=== PATIENT | male | born 1965 | race American Indian/Alaskan Native ===

== ENCOUNTER 2016-05-17 17:34 | Inpatient (IN) | payer MEDICARE, OTHER ==
[2016-05-17 17:34] VITALS: BMI 46.0
[2016-05-17] MEDS ORDERED: Aspirin 325 mg EC Tablets PO STA (18:03)
[2016-05-17 18:43] LABS: BASO # 0.1 K/uL (0.0-0.2); BASO % 0.8 % (0.0-2.0); EOS # 0.2 K/uL (0.0-0.7); EOS % 2.6 % (0.0-4.0); HEMATOCRIT 32.8 % (35.0-51.0); LYMPH # 1.4 K/uL (1.0-4.3); LYMPH % 16.8 % (20.0-40.0); MEAN CORPUSCULAR HEMOGLOBIN 24.2 pg (27.0-31.0); MEAN CORPUSCULAR HGB CONC 31.4 g/dL (33.0-37.0); MEAN PLATELET VOLUME 8.7 fL (7.2-11.7); MONO # 0.5 K/uL (0.0-0.8); MONO % 6.3 % (0.0-10.0); RED CELL DISTRIBUTION WIDTH 17.2 % (11.5-14.5); WHITE BLOOD COUNT 8.4 K/uL (4.8-10.8)
[2016-05-17 18:50] LABS: CHLORIDE 99 mmol/L (98-107)
[2016-05-17 18:51] LABS: SODIUM 135 mmol/L (132-148)
[2016-05-17 18:53] LABS: ALB/GLOB RATIO 0.9 (1.0-2.1); ALKALINE PHOSPHATASE 118 U/L (38-126); AST/SGOT 14 U/L (17-59); BILIRUBIN,TOTAL 0.5 mg/dL (0.2-1.3); BLOOD UREA NITROGEN 43 mg/dL (9-20); CARBON DIOXIDE 23 mmol/L (22-30); GFR AFRICAN-AMERICAN 39; TOTAL PROTEIN 7.4 g/dL (6.3-8.3)
[2016-05-17 18:54] LABS: ALT/SGPT 23 U/L (21-72); CALCIUM 8.5 mg/dl (8.6-10.4); GLUCOSE,RANDOM 175 mg/dL (75-110)
--- NOTE | 2016-05-17 19:20 | C.PDOC ---
History Of Present Illness Patient presents to the ED with vague chest pains prior to arrival. Patient has many prior evaluations for same complaint and is well known to doctor. Patient takes oxycodone for chronic lower back pain. Patient denies nausea, vomiting, and diarrhea. Time Seen by Provider: 05/17/16 18:02 Chief Complaint (Nursing): Chest Pain History Per: Patient History/Exam Limitations: no limitations Onset/Duration Of Symptoms: Hrs Current Symptoms Are (Timing): Still Present Quality: "Pain" Associated Symptoms: denies: Nausea Past Medical History Reviewed: Historical Data, Nursing Documentation, Vital Signs Vital Signs: Last Vital Signs Temp Pulse 88 05/17/16 19:36 Resp 18 05/17/16 19:36 BP 113/59 L 05/17/16 17:53 Pulse Ox 98 05/17/16 20:23 - Medical History PMH: Back Problems, CAD, CHF, COPD, Diabetes, Deep Vein Thrombosis, Emphysema, Graves' Disease, HTN, Hypothyroidism, Peripheral Edema, Pneumonia, Sleep Apnea, TIA (Hx of Strokes-2008) Denies: Chronic Kidney Disease Surgical History: CABG (2008), Coronary Stent (3 Stents Prior to Quadruple Bypass), Pacemaker (left upper chest) - [employer] Procedures ASSISTANCE WITH RESPIRATORY VENTILATION, 24-96 HRS, CPAP (10/15/15) INJECT/INFUSE NEC (10/09/12) Family History: States: Unknown Family Hx - Social History Hx Tobacco Use: Yes Hx Alcohol Use: No Hx Substance Use: No - Immunization History Hx Tetanus Toxoid Vaccination: Yes Hx Influenza Vaccination: Yes Hx Pneumococcal Vaccination: Yes Review Of Systems Constitutional: Positive for: Sweats, Other. Negative for: Fever, Chills Cardiovascular: Positive for: Chest Pain Gastrointestinal: Negative for: Nausea, Vomiting Physical Exam - Physical Exam Appears: Other (Morbidly obese ) Skin: Warm, Dry, Other (with lichenification) Respiratory: No Rales, No Rhonchi, No Wheezing Gastrointestinal/Abdominal: Other (abdominal globus) Extremity: Other (lower extremity 4/4 pitting edema) Neurological/Psych: Oriented x3 ED Course And Treatment - Laboratory Results Result Diagrams: 05/17/16 18:37 05/17/16 18:37 Lab Interpretation: Abnormal (creat 2.2 increased from 1.0 from 05/05/16) ECG: Interpreted By Me ECG Rhythm: Sinus Rhythm, AV Paced ECG Interpretation: Normal Rate From EC O2 Sat by Pulse Oximetry: 98 Pulse Ox Interpretation: Normal - Radiology CXR: Interpreted by Me CXR Interpretation: Yes: No Acute Disease, Other (+ mild venous congestion) Reevaluation Time: 19:20 Reassessment Condition: Improved - Physician Consult Information Outcome Of Conversation: d/w Dr. Amor @ 1800 and 1900, ok to Tele obs Medical Decision Making Medical Decision Making: typical CP syndrome + cardiac stress test from [facility] (seen for CP) 04/17- left AMA. Disposition Doctor Will See Patient In The: Hospital Counseled Patient/Family Regarding: Studies Performed, Diagnosis - Disposition Disposition: HOSPITALIZED Disposition Time: 19:21 Condition: GOOD - Clinical Impression Clinical Impression: Chronic pain syndrome, Acute renal insufficiency, Chest discomfort - Scribe Statement The provider has reviewed the documentation as recorded by the Scribe Livier Gonzalez All medical record entries made by the Scribe were at my direction and personally dictated by me. I have reviewed the chart and agree that the record accurately reflects my personal performance of the history, physical exam, medical decision making, and the department course for this patient. I have also personally directed, reviewed, and agree with the discharge instructions and disposition.
[2016-05-17] MEDS ORDERED: oxyCODONE 30 mg Immediate Release Tab ONE (20:17)
[2016-05-17] MEDS: oxyCODONE 30 mg Immediate Release Tab PO PRN (20:19)
[2016-05-18] MEDS: (Novolog) Insulin Aspart, Recombinant 100 u/ml 10 ml vial SC SCH ×5 (00:20→21:52)
[2016-05-18 04:33] VITALS: RESP 20
[2016-05-18] MEDS: oxyCODONE 30 mg Immediate Release Tab PO PRN ×4 (04:56→23:59)
[2016-05-18] MEDS ORDERED: Levothyroxine 100 MCG TAB PO SCH (10:00)
--- NOTE | 2016-05-18 10:39 | RAD ---
PROCEDURE: CHEST RADIOGRAPH, 1 VIEW HISTORY: SOB COMPARISON: Comparison chest dated 05/03/2016 FINDINGS: LUNGS: In situ right IJ MediPort unchanged. Central pulmonary vasculature is slightly congested in appearance. Poor inspiration with low lung volumes, crowded bronchovascular markings and mild bibasilar atelectasis. PLEURA: No pneumothorax or pleural fluid seen. CARDIOVASCULAR: Multi lead pacemaker/ defibrillator unchanged. Sternotomy wires again noted. Heart appears borderline/mildly enlarged. OSSEOUS STRUCTURES: No significant abnormalities. VISUALIZED UPPER ABDOMEN: Normal. OTHER FINDINGS: None. IMPRESSION: Central pulmonary vasculature is slightly congested in appearance. Poor inspiration with low lung volumes, crowded bronchovascular markings and mild bibasilar atelectasis.
[2016-05-18] MEDS: Digoxin 125 mcg (0.125 mg) Tab PO SCH (17:55)
[2016-05-18] MEDS: Levothyroxine 100 MCG TAB PO SCH (21:53)
--- NOTE | 2016-05-18 22:16 | CARD ---
APPROVED REPORT EKG Measurement Heart [id number] <Conclusion> Dual chamber pacemaker rhythm Atrial-sensed ventricular-paced rhythm with fusion complexes Abnormal ECG
--- NOTE | 2016-05-18 22:34 | CP.PCM.HP ---
History of Present Illness - History of Present Illness History of Present Illness: Chief Complaint: Chest Pain HPI: He is Middle age, male with a history of diabetes, hyper tension, hyperlipedemia, DVT, coronary artery disease s/p CABG, multiple angioplasties, who is complaint with high medications, he has multiple recurrent hospitalizations for chest ho. 2 days ago he has stress test done and was advised cardiac cath, he left without it against med advice, he is ambulatory, an independent on activities of daily living , pt developed chest pain , he feels generalize weakness , drowsiness at times and running nose . He denies any nausea, vomiting, diarrhea, polyurea, arthopenia , abdominal pain , rectal pain, rectal bleed , but he gets dysnia on exertion and low back pain, theres occasionally knee pain, theres tingling numbness in the feet . patient denies loss of consciousness, no seizure like activity, no involuntary movement . Review of Systems - Review of Systems Systems not reviewed;Unavailable: Acuity of Condition - Constitutional Constitutional: Fatigue, Lethargy, Malaise, Weakness - EENT Eyes: absent: As Per HPI, Blind Spots, Blurred Vision, Change in Vision, Decreased Night Vision, Diplopia, Discharge, Dry Eye, Exophthalmos, Floaters, Irritation, Itchy Eyes, Loss of Peripheral Vision, Pain, Photophobia, Requires Corrective Lenses, Sees Flashes, Spots in Vision, Tunnel Vision, Other Visual Disturbances, Loss of Vision, Other Nose/Mouth/Throat: absent: As Per HPI, Epistaxis, Nasal Congestion, Nasal Discharge, Nasal Obstruction, Nasal Trauma, Nose Pain, Post Nasal Drip, Sinus Pain, Sinus Pressure, Bleeding Gums, Change in Voice, Dental Pain, Dry Mouth, Dysphagia, Halitosis, Hoarsness, Lip Swelling, Mouth Lesions, Mouth Pain, Odynophagia, Sore Throat, Throat Swelling, Tongue Swelling, Facial Pain, Neck Pain, Neck Mass, Other - Cardiovascular Cardiovascular: Chest Pain, Chest Pain at Rest, Leg Edema, Palpitations - Respiratory Respiratory: Cough, Dyspnea - Gastrointestinal Gastrointestinal: absent: As Per HPI, Abdominal Pain, Belching, Bloating, Change in Bowel Habits, Change in Stool Character, Coffee Ground Emesis, Constipation, Cramping, Diarrhea, Dyspepsia, Dysphagia, Early Satiety, Excessive Flatus, Fecal Incontinence, Heartburn, Hematemesis, Hematochezia, Loose Stools, Melena, Nausea, Odynophagia, Temesmus, Vomiting, Other - Genitourinary Genitourinary: absent: As Per HPI, Change in Urinary Stream, Difficulty Urinating, Dysuria, Flank Pain, Hematuria, Pyuria, Nocturia, Urinary Incontinence, Urinary Frequency, Urinary Hesitance, Urinary Urgency, Voiding Freq/Small Amts, Freq UTI, Hx Renal/Bladder Calculi, Hx /Renal Surgery, Bladder Distension, Other - Musculoskeletal Musculoskeletal: Back Pain, Muscle Weakness - Integumentary Integumentary: Dry Skin, Erythema - Neurological Neurological: absent: As Per HPI, Abnormal Gait, Abnormal Hearing, Abnormal Movements, Abnormal Speech, Behavioral Changes, Burning Sensations, Confusion, Convulsions, Disequilibrium, Dizziness, Numbness, Focal Weakness, Frequent Falls , Headaches, Lack of Coordination, Loss of Vision, Memory Loss, Paresthesias, Radicular Pain, Restless Legs, Sensory Deficit, Syncope, Tingling, Tremor, Vertigo, Weakness, Other Visual Disturbances, Other Past Patient History - Infectious Disease Hx of Infectious Diseases: None - Past Medical History & Family History Past Medical History?: Yes - Past Social History Smoking Status: Current Some Days Smoker - CARDIAC Hx Congestive Heart Failure: Yes Hx Hypertension: Yes Hx Pacemaker: Yes (left upper chest) Hx Peripheral Edema: Yes - PULMONARY Hx Chronic Obstructive Pulmonary Disease (COPD): Yes Hx Emphysema: Yes Hx Pneumonia: Yes Hx Sleep Apnea: Yes - NEUROLOGICAL Hx Transient Ischemic Attacks (TIA): Yes (Hx of Strokes-2008) - HEENT Hx HEENT Problems: No - RENAL Hx Chronic Kidney Disease: No - ENDOCRINE/METABOLIC Hx Hypothyroidism: Yes - HEMATOLOGICAL/ONCOLOGICAL Hx Blood Disorders: No Hx Blood Transfusions: No - INTEGUMENTARY Hx Dermatological Problems: No - MUSCULOSKELETAL/RHEUMATOLOGICAL Hx Musculoskeletal Disorders: Yes Hx Falls: No Other/Comment: knee surgery 2012 - GASTROINTESTINAL Hx Gastrointestinal Disorders: No - GENITOURINARY/GYNECOLOGICAL Hx Genitourinary Disorders: Yes (UTI) - PSYCHIATRIC Hx Substance Use: No - SURGICAL HISTORY Hx Coronary Artery Bypass Graft: Yes (2008) Hx Coronary Stent: Yes (3 Stents Prior to Quadruple Bypass) - ANESTHESIA Hx Anesthesia: Yes Hx Anesthesia Reactions: No Hx Malignant Hyperthermia: No Meds Allergies/Adverse Reactions: Allergies Allergy/AdvReac Type Severity Reaction Status Date / Time No Known Drug Allergies Allergy n/a Verified 05/17/16 17:57 Physical Exam - Constitutional Appears: No Acute Distress - Head Exam Head Exam: ATRAUMATIC, NORMAL INSPECTION, NORMOCEPHALIC - ENT Exam ENT Exam: Mucous Membranes Moist, Normal Exam - Neck Exam Neck exam: Positive for: Normal Inspection - Respiratory Exam Respiratory Exam: Clear to Auscultation Bilateral, NORMAL BREATHING PATTERN - Cardiovascular Exam Cardiovascular Exam: REGULAR RHYTHM Additional comments: s3 positive 2/6 ESM at apex - GI/Abdominal Exam GI & Abdominal Exam: Normal Bowel Sounds, Soft. absent: Tenderness - Extremities Exam Extremities exam: Positive for: pedal edema - Back Exam Back exam: paraspinal tenderness - Neurological Exam Neurological exam: Alert, CN II-XII Intact, Normal Gait, Oriented x3, Reflexes Normal Results - Vital Signs Recent Vital Signs: Last Vital Signs Temp 97.5 F L 05/18/16 15:00 Pulse 78 05/18/16 16:00 Resp 20 05/18/16 15:00 BP 124/68 05/18/16 21:51 Pulse Ox 98 05/18/16 15:00 - Labs Result Diagrams: 05/17/16 18:37 05/17/16 18:37 Labs: Laboratory Results - last 24 hr 05/18/16 05/18/16 05/18/16 06:51 11:43 16:30 POC Glucose (mg/dL) 183 H 162 H 160 H 05/18/16 21:28 POC Glucose (mg/dL) 214 H Assessment & Plan (1) Chest discomfort Status: Acute (2) Congestive heart failure Status: Acute (3) Diabetes mellitus Status: Acute (4) Low back pain Status: Acute - Assessment and Plan (Free Text) Plan: admit pateint detail orders written
[2016-05-19] MEDS: Levothyroxine 100 MCG TAB PO SCH (06:05)
[2016-05-19] MEDS: oxyCODONE 30 mg Immediate Release Tab PO PRN ×3 (06:05→18:29)
[2016-05-19] MEDS: (Novolog) Insulin Aspart, Recombinant 100 u/ml 10 ml vial SC SCH ×4 (08:30→21:33)
--- NOTE | 2016-05-19 11:06 | CP.PCM.PN ---
Subjective - Date & Time of Evaluation Date of Evaluation: 05/19/16 Time of Evaluation: 11:03 - Subjective Subjective: PT REFUSED FOR IV INSERTION, IV LASIX, AND REQUESTING FOR PO LASIX INSTEAD. LASIX 60 MG PO DAILY ORDERED PER DR BLANDON, NO NEW ORDERS.. Objective - Vital Signs/Intake and Output Vital Signs (last 24 hours): Temp Pulse Resp BP Pulse Ox 98.6 F 78 20 105/66 98 05/19/16 08:50 05/19/16 08:50 05/19/16 08:50 05/19/16 10:03 05/19/16 08:50 Intake and Output: 05/19/16 05/19/16 06:59 18:59 Intake Total 480 Output Total 700 Balance -220 - Medications Medications: Current Medications Apixaban (Eliquis) 5 mg PO Q12 [facility] Last Admin: 05/19/16 10:03 Dose: 5 mg Carvedilol (Coreg) 25 mg PO BID [facility] Last Admin: 05/19/16 10:03 Dose: 25 mg Clopidogrel Bisulfate (Plavix) 75 mg PO DAILY [facility] Last Admin: 05/19/16 10:03 Dose: 75 mg Digoxin (Lanoxin) 0.125 mg PO DAILY@1800 [facility] Last Admin: 05/18/16 17:55 Dose: 0.125 mg Ferrous Sulfate (Feosol) 325 mg PO DAILY [facility] Last Admin: 05/19/16 10:04 Dose: 325 mg Furosemide (Lasix) 60 mg PO DAILY [facility] Hydroxychloroquine Sulfate (Plaquenil) 200 mg PO BID [facility] Last Admin: 05/19/16 10:03 Dose: 200 mg Influenza Virus Vaccine (Afluria) 45 mcg IM .ONCE ONE Stop: 05/20/16 14:01 Insulin Aspart (Novolog) 0 unit SC ACHS [facility] PRN Reason: Protocol Last Admin: 05/19/16 08:30 Dose: 2 unit Levothyroxine Sodium (Synthroid) 100 mcg PO DAILY@0630 [facility] Last Admin: 05/19/16 06:05 Dose: 100 mcg Lisinopril (Zestril) 5 mg PO DAILY [facility] Last Admin: 05/19/16 10:04 Dose: 5 mg Oxycodone HCl (Oxycodone Immediate Release Tab) 30 mg PO Q4 PRN PRN Reason: Pain, moderate (4-7) Last Admin: 05/19/16 06:05 Dose: 30 mg Pneumococcal Polyvalent Vaccine (Pneumovax 23 Vaccine) 0.5 ml IM .ONCE ONE Stop: 05/20/16 14:01 Rosuvastatin Calcium (Crestor) 40 mg PO [facility] Last Admin: 05/18/16 21:52 Dose: 40 mg Sitagliptin Phosphate (Januvia) 25 mg PO DAILY [facility] Last Admin: 05/19/16 10:04 Dose: 25 mg
[2016-05-19] MEDS: Digoxin 125 mcg (0.125 mg) Tab PO SCH (18:29)
[2016-05-19 18:34] VITALS: PULSE 77
--- NOTE | 2016-05-19 21:18 | CON ---
DATE: 05/19/2016 REASON FOR CONSULTATION: Chest pain. HISTORY OF PRESENT ILLNESS: The patient is a 50-year-old morbidly obese -Dominican male with i schemic cardiomyopathy, status post coronary bypass surgery and ICD placement with ____ placement. T he patient has chronic renal insufficiency, has also sleep apnea. Has multiple admissions to [facility] for exacerbation of CHF as well as chest pain. The patient underwent cardiac catheterizatio n in October of last year at [facility] and was recommended medical therapy. The patient was adm itted a week ago to [facility] on ____ . Four days ago, the patient underwent Myoview stres s test which was positive for anterior apical ischemia. Ejection fraction was 33% and the patient wa s advised cardiac catheterization; however, he declined having it. The patient presents with retrost ernal chest pain. SOCIAL HISTORY: Nonsmoker. MEDICATIONS: Coreg 25 mg twice a day, Crestor 40 mg once a day, Eliquis 5 mg q. 12 hours, Januvia 25 mg once a day, Lanoxin 0.125 mg once a day, Lasix 40 mg p.o. once a day, Plaquenil 200 mg once a day , Plavix 75 mg once a day, Zestril 5 mg once a day, Synthroid 100 mcg once a day. REVIEW OF SYSTEMS: No dizziness or syncope. No fever or chills. No productive cough. PHYSICAL EXAMINATION: GENERAL: The patient is a middle-aged male who does not appear to be in acute distress. VITAL SIGNS: Blood pressure 132/82, heart rate 73, temperature 99.6, respirations 20. HEENT: Normocephalic. NECK: No JVD. CHEST: Bilateral rhonchi. HEART: S1, S2 regular. ABDOMEN: Soft. EXTREMITIES: 2-3+ pitting edema. Chest x-ray revealed cardiomegaly and mild CHF. EKG revealed an atrial sensed ventricular paced rhyt hm. LABORATORY DATA: SMA-7: Sodium 135, potassium 4, chloride 99, CO2 23, glucose 175, BUN 43, creatini ne 2.2. One set of troponins is negative. Hemoglobin and hematocrit 10.3 and 32.8, white count and platelet count are within normal limits. ASSESSMENT: 1. Chest pain, rule out myocardial infarction. 2. ____ recent Myoview stress test for ____. 3. Ischemic cardiomyopathy. 4. Morbid obesity. 5. Sleep apnea. 6. Uncontrolled diabetes mellitus. 7. Chronic renal insufficiency. RECOMMENDATIONS: Continue Coreg 25 mg twice a day, Plavix 75 mg once a day, Eliquis 5 mg once a day, Crestor at 40 mg once a day, Zestril at 5 mg once a day, Synthroid at 100 mcg once a day. I will re quest the CD ____ study for the cardiac catheterization from [facility] to review it to avoid unnecessary ra diocontrast injury to the kidneys. Burke Bernstein MD cc: [id number] TT: 05/19/2016 21:17:26 Confirmation # [id number] Dictation # [id number] rn
[2016-05-20] MEDS: oxyCODONE 30 mg Immediate Release Tab PO PRN ×3 (00:07→12:11)
[2016-05-20] MEDS: Levothyroxine 100 MCG TAB PO SCH (06:13)
[2016-05-20] MEDS: (Novolog) Insulin Aspart, Recombinant 100 u/ml 10 ml vial SC SCH (08:05)
[2016-05-20 08:24] VITALS: TEMP 97.9; O2SAT 100
[2016-05-20 09:24] VITALS: BP 110/70
--- NOTE | 2016-05-20 10:02 | CP.PCM.PN ---
Subjective - Date & Time of Evaluation Date of Evaluation: 05/19/16 - Subjective Subjective: PT SEEN & EVALUATED AT BEDSIDE, PT REFUSED FOR IV INSERTION, IV LASIX, AND REQUESTING FOR PO LASIX INSTEAD. LASIX 60 MG PO DAILY ORDERED Objective - Vital Signs/Intake and Output Vital Signs (last 24 hours): Temp Pulse Resp BP Pulse Ox 97.9 F 70 20 110/70 100 05/20/16 08:23 05/20/16 08:23 05/20/16 08:23 05/20/16 09:23 05/20/16 08:23 Intake and Output: 05/20/16 05/20/16 06:59 18:59 Intake Total 240 Balance 240 - Medications Medications: Current Medications Apixaban (Eliquis) 5 mg PO Q12 [facility] Last Admin: 05/20/16 09:22 Dose: 5 mg Carvedilol (Coreg) 25 mg PO BID [facility] Last Admin: 05/20/16 09:23 Dose: 25 mg Clopidogrel Bisulfate (Plavix) 75 mg PO DAILY [facility] Last Admin: 05/20/16 09:22 Dose: 75 mg Digoxin (Lanoxin) 0.125 mg PO DAILY@1800 [facility] Last Admin: 05/19/16 18:29 Dose: 0.125 mg Ferrous Sulfate (Feosol) 325 mg PO DAILY [facility] Last Admin: 05/20/16 09:22 Dose: 325 mg Furosemide (Lasix) 60 mg PO DAILY [facility] Last Admin: 05/20/16 09:23 Dose: 60 mg Hydroxychloroquine Sulfate (Plaquenil) 200 mg PO BID [facility] Last Admin: 05/20/16 09:23 Dose: 200 mg Influenza Virus Vaccine (Afluria) 45 mcg IM .ONCE ONE Stop: 05/20/16 14:01 Insulin Aspart (Novolog) 0 unit SC ACHS [facility] PRN Reason: Protocol Last Admin: 05/20/16 08:05 Dose: Not Given Levothyroxine Sodium (Synthroid) 100 mcg PO DAILY@0630 [facility] Last Admin: 05/20/16 06:13 Dose: 100 mcg Lisinopril (Zestril) 5 mg PO DAILY [facility] Last Admin: 05/19/16 10:04 Dose: 5 mg Oxycodone HCl (Oxycodone Immediate Release Tab) 30 mg PO Q4 PRN PRN Reason: Pain, moderate (4-7) Last Admin: 05/20/16 06:13 Dose: 30 mg Pneumococcal Polyvalent Vaccine (Pneumovax 23 Vaccine) 0.5 ml IM .ONCE ONE Stop: 05/20/16 14:01 Rosuvastatin Calcium (Crestor) 40 mg PO HS [facility] Last Admin: 05/19/16 21:05 Dose: 40 mg Sitagliptin Phosphate (Januvia) 25 mg PO DAILY [facility] Last Admin: 05/20/16 09:23 Dose: 25 mg - Constitutional Appears: No Acute Distress - Head Exam Head Exam: ATRAUMATIC, NORMAL INSPECTION, NORMOCEPHALIC - Eye Exam Eye Exam: EOMI, Normal appearance, PERRL Pupil Exam: NORMAL ACCOMODATION, PERRL - Cardiovascular Exam Cardiovascular Exam: REGULAR RHYTHM, +S1, +S2. absent: Murmur - GI/Abdominal Exam GI & Abdominal Exam: Soft, Normal Bowel Sounds. absent: Tenderness - Rectal Exam Rectal Exam: Deferred Assessment and Plan (1) Chest discomfort Status: Acute (2) Congestive heart failure Status: Acute (3) Diabetes mellitus Status: Acute (4) Low back pain Status: Acute
[2016-05-20 11:11] LABS: CHLORIDE 99 mmol/L (98-107); POTASSIUM 4.4 mmol/L (3.6-5.2); SODIUM 136 mmol/L (132-148)
[2016-05-20 11:13] LABS: GFR AFRICAN-AMERICAN > 60
[2016-05-20 11:14] LABS: BLOOD UREA NITROGEN 17 mg/dL (9-20); CALCIUM 8.6 mg/dl (8.6-10.4); CARBON DIOXIDE 22 mmol/L (22-30); GLUCOSE,RANDOM 147 mg/dL (75-110); MAGNESIUM 1.7 mg/dL (1.6-2.3)
[2016-05-20 12:22] VITALS: PULSE 81
--- NOTE | 2016-05-20 12:38 | CP.PCM.PN ---
Subjective - Date & Time of Evaluation Date of Evaluation: 05/20/16 Time of Evaluation: 10:30 - Subjective Subjective: Pt seen and examined today denies any chest pain, sob, palpitations, dizziness, no overnight events recorded on monitor oob ambulating the hallway without SOB Objective - Vital Signs/Intake and Output Vital Signs (last 24 hours): Temp Pulse Resp BP Pulse Ox 97.9 F 81 20 110/70 100 05/20/16 08:23 05/20/16 12:13 05/20/16 08:23 05/20/16 09:23 05/20/16 08:23 Intake and Output: 05/20/16 05/20/16 06:59 18:59 Intake Total 240 Balance 240 - Medications Medications: Current Medications Apixaban (Eliquis) 5 mg PO Q12 [facility] Last Admin: 05/20/16 09:22 Dose: 5 mg Carvedilol (Coreg) 25 mg PO BID [facility] Last Admin: 05/20/16 09:23 Dose: 25 mg Clopidogrel Bisulfate (Plavix) 75 mg PO DAILY [facility] Last Admin: 05/20/16 09:22 Dose: 75 mg Digoxin (Lanoxin) 0.125 mg PO DAILY@1800 [facility] Last Admin: 05/19/16 18:29 Dose: 0.125 mg Ferrous Sulfate (Feosol) 325 mg PO DAILY [facility] Last Admin: 05/20/16 09:22 Dose: 325 mg Furosemide (Lasix) 60 mg PO DAILY [facility] Last Admin: 05/20/16 09:23 Dose: 60 mg Hydroxychloroquine Sulfate (Plaquenil) 200 mg PO BID [facility] Last Admin: 05/20/16 09:23 Dose: 200 mg Influenza Virus Vaccine (Afluria) 45 mcg IM .ONCE ONE Stop: 05/20/16 14:01 Insulin Aspart (Novolog) 0 unit SC ACHS [facility] PRN Reason: Protocol Last Admin: 05/20/16 08:05 Dose: Not Given Levothyroxine Sodium (Synthroid) 100 mcg PO DAILY@0630 [facility] Last Admin: 05/20/16 06:13 Dose: 100 mcg Lisinopril (Zestril) 5 mg PO DAILY [facility] Last Admin: 05/20/16 11:21 Dose: 5 mg Oxycodone HCl (Oxycodone Immediate Release Tab) 30 mg PO Q4 PRN PRN Reason: Pain, moderate (4-7) Last Admin: 05/20/16 12:11 Dose: 30 mg Pneumococcal Polyvalent Vaccine (Pneumovax 23 Vaccine) 0.5 ml IM .ONCE ONE Stop: 05/20/16 14:01 Rosuvastatin Calcium (Crestor) 40 mg PO HS [facility] Last Admin: 05/19/16 21:05 Dose: 40 mg Sitagliptin Phosphate (Januvia) 25 mg PO DAILY [facility] Last Admin: 05/20/16 09:23 Dose: 25 mg - Labs Labs: 05/20/16 10:46 Assessment and Plan - Assessment and Plan (Free Text) Assessment: A/P 50 yr old male admitted for chest pain troponin - negative vss- stable seen by Dr. Amor, stable for discharge home today aand f/u with his office in 5 days D/W Dr. Bernstein, cleared from cardiology stand point for discharge home today . We requested CD for the previous cat done last from [facility] . Dr. Bernstein will review the CD when it is available and make recommendation s Discharge plan discussed with patient who understands and agrees with plan RX e prescribed to patient pharmacy - Pt instructed to returns to ED if symptoms returns
--- NOTE | 2016-05-20 12:38 | PCM.HF ---
Heart Failure Core Measure - Heart Failure Ejection Fraction: 40 % or Greater JEANNE Inhibitor Prescribed: Yes Beta-Rian Prescribed: Carvedilol Angiotensin II Receptor Rian Prescribed: No Contraindication/Reason for not providing: no jeanne AnticoagulationTherapy for Atrial Fibrillation/Atrialflutter: Yes Aldosterone Antagonist Prescribed: No Contraindication/Reason for not providing: EF.>40 Hydralazine Nitrate Prescribed: No Contraindication/Reason for not providing: ef>40 Implantable Cardioverter Defibrillator Therapy: Yes Cardiac Resynchronization Therapy Prescribed: No Contraindication/Reason for not providing: pt has ICD - Follow up Will be discharged to: Home Follow Up Date (must be within 7 days from discharge): 05/22/16 Follow Up Time: 09:00
[2016-05-20] MEDS ORDERED: Pneumococcal 23-Valent Vaccine IM ONE (14:00)
[2016-05-20] MEDS ORDERED: Influenza Virus Vaccine 45 mcg/0.5 ml Syr IM ONE (14:00)
--- NOTE | 2016-05-20 15:56 | PN ---
DATE: 05/20/2016 The patient denies chest pain or shortness of breath at this time. PHYSICAL EXAMINATION: VITAL SIGNS: Blood pressure 110/70, heart rate 70, temperature 97.9, respiration 20. HEENT: Normocephalic. NECK: No JVD. CHEST: Bilateral rhonchi. HEART: S1, S2 regular. EXTREMITIES: 2+ pitting edema. LABORATORIES: Today's BUN and creatinine are 17 and 0.9 respectively, surprising improvement from 43 and 2.2. Today's blood sugar is 147. The rest of the chemistries within normal limits. Magnesium is 1.7. ASSESSMENT: 1. Chest pain. The patient has anterolateral ischemia on recent Myoview stress test. 2. Ischemic cardiomyopathy. 3. Paroxysmal atrial fibrillation. 4. Sleep apnea. 5. Uncontrolled diabetes mellitus. RECOMMENDATIONS: Continue Coreg 25 mg twice a day, Crestor 40 mg once a day, Eliquis 5 mg twice a da y, digoxin 0.125 mg once a day, Plavix 75 mg once a day, Synthroid 100 mg once a day, Zestril 5 mg on ce a day. [facility] was contacted and the cardiac catheterization CD-ROM will be overnight mailed to us at 6th floor where the patient's room is. However, the patient decided to go home today luke use his [birth year] is [birth year]. I would review the CD myself and make my recommendations to the patien t and to Dr. Ousmane Amor. Burke Bernstein MD cc: [id number] TT: 05/20/2016 15:55:36 Confirmation # [id number] Dictation # [id number] mn
--- NOTE | 2016-05-21 00:52 | CP.PCM.DIS ---
Provider - Provider Date of Admission: 05/19/16 23:11 Attending physician: Ousmane Amor MD Diagnosis - Discharge Diagnosis (1) Chest discomfort Status: Acute (2) Congestive heart failure Status: Acute (3) Diabetes mellitus Status: Acute (4) Low back pain Status: Acute Hospital Course - Lab Results Lab Results: Most Recent Lab Values WBC 8.4 K/uL (4.8-10.8) 05/17/16 18:37 RBC 4.26 Mil/uL (4.40-5.90) L 05/17/16 18:37 Hgb 10.3 g/dL (12.0-18.0) L 05/17/16 18:37 Hct 32.8 % (35.0-51.0) L 05/17/16 18:37 MCV 77.0 fL (80.0-94.0) L 05/17/16 18:37 MCH 24.2 pg (27.0-31.0) L 05/17/16 18:37 MCHC 31.4 g/dL (33.0-37.0) L 05/17/16 18:37 RDW 17.2 % (11.5-14.5) H 05/17/16 18:37 Plt Count 184 K/uL (130-400) 05/17/16 18:37 MPV 8.7 fL (7.2-11.7) 05/17/16 18:37 Neut % (Auto) 73.5 % (50.0-75.0) 05/17/16 18:37 Lymph % (Auto) 16.8 % (20.0-40.0) L 05/17/16 18:37 Lamb % (Auto) 6.3 % (0.0-10.0) 05/17/16 18:37 Eos % (Auto) 2.6 % (0.0-4.0) 05/17/16 18:37 Baso % (Auto) 0.8 % (0.0-2.0) 05/17/16 18:37 Neut # 6.2 K/uL (1.8-7.0) 05/17/16 18:37 Lymph # 1.4 K/uL (1.0-4.3) 05/17/16 18:37 Lamb # 0.5 K/uL (0.0-0.8) 05/17/16 18:37 Eos # 0.2 K/uL (0.0-0.7) 05/17/16 18:37 Baso # 0.1 K/uL (0.0-0.2) 05/17/16 18:37 Sodium 136 mmol/L (132-148) 05/20/16 10:46 Potassium 4.4 mmol/L (3.6-5.2) 05/20/16 10:46 Chloride 99 mmol/L (98-107) 05/20/16 10:46 Carbon Dioxide 22 mmol/L (22-30) 05/20/16 10:46 Anion Gap 19 (10-20) 05/20/16 10:46 BUN 17 mg/dL (9-20) 05/20/16 10:46 Creatinine 0.9 MG/DL (0.8-1.5) 05/20/16 10:46 Est GFR ( Amer) > 60 05/20/16 10:46 Est GFR (Non-Af Amer) > 60 05/20/16 10:46 POC Glucose (mg/dL) 131 mg/dL (65-110) H 05/20/16 11:08 Random Glucose 147 mg/dL (75-110) H 05/20/16 10:46 Calcium 8.6 mg/dl (8.6-10.4) 05/20/16 10:46 Magnesium 1.7 mg/dL (1.6-2.3) 05/20/16 10:46 Total Bilirubin 0.5 mg/dL (0.2-1.3) 05/17/16 18:37 AST 14 U/L (17-59) L D 05/17/16 18:37 ALT 23 U/L (21-72) 05/17/16 18:37 Alkaline Phosphatase 118 U/L (38-126) 05/17/16 18:37 Troponin I < 0.0120 ng/mL (0.00-0.120) 05/17/16 18:37 NT-Pro-B Natriuret Pep 613 pg/mL (0-450) H 05/17/16 18:37 Total Protein 7.4 g/dL (6.3-8.3) 05/17/16 18:37 Albumin 3.5 g/dL (3.5-5.0) 05/17/16 18:37 Globulin 3.9 gm/dL (2.2-3.9) 05/17/16 18:37 Albumin/Globulin Ratio 0.9 (1.0-2.1) L 05/17/16 18:37 - Hospital Course Hospital Course: Pt seen and examined today denies any chest pain, sob, palpitations, dizziness, no overnight events recorded on monitor oob ambulating the hallway without SOB pt is for discharge to home Discharge Exam - Head Exam Head Exam: ATRAUMATIC, NORMAL INSPECTION, NORMOCEPHALIC - Eye Exam Eye Exam: EOMI, Normal appearance, PERRL Pupil Exam: NORMAL ACCOMODATION, PERRL - Respiratory Exam Respiratory Exam: Clear to PA & Lateral, NORMAL BREATHING PATTERN - Cardiovascular Exam Cardiovascular Exam: REGULAR RHYTHM, +S1, +S2 - GI/Abdominal Exam GI & Abdominal Exam: Normal Bowel Sounds - Neurological Exam Neurological exam: Alert, CN II-XII Intact, Normal Gait, Oriented x3, Reflexes Normal - Psychiatric Exam Psychiatric exam: Normal Affect, Normal Mood Discharge Plan - Discharge Medications Prescriptions: Furosemide [Lasix] 40 mg PO BID #60 tab Promethazine [Phenergan Oral Syrup] 6.25 mg PO Q6 PRN #4 oz PRN Reason: Cough - Follow Up Plan Condition: GOOD Disposition: HOME/ ROUTINE Instructions: Heart Failure (DC), Chest Pain (DC), How to Stop Smoking (DC), Heart Healthy Diet (DC), Cigarette Smoking and Your Health (GEN) Additional Instructions: f/u with Dr. Amor office in 3-5 days Continue medication as per med. REc. f/u with Dr. Bernstein office -call for appointment Referrals: Burke Bernstein MD [Staff Provider] - Ousmane Amor MD [Staff Provider] -
== END 2016-05-20 16:00 | disposition home or self-care (01) | DRG 313 ==
LOC: C.ER 17:34 → C.9E 05-18 01:08 → C.6T 05-18 02:20 → OBSVTOIN 05-19 23:11
PROVIDERS: ADMIT Internal Medicine; ATTEND Internal Medicine
DX: R07.9 Chest pain, unspecified (principal); I25.10 Atherosclerotic heart disease of native coronary artery without angina pectoris; E11.22 Type 2 diabetes mellitus with diabetic chronic kidney disease; I50.9 Heart failure, unspecified; I25.5 Ischemic cardiomyopathy; E66.01 Morbid (severe) obesity due to excess calories; G47.30 Sleep apnea, unspecified; E11.65 Type 2 diabetes mellitus with hyperglycemia; I12.9 Hypertensive chronic kidney disease with stage 1 through stage 4 chronic kidney disease, or unspecified chronic kidney disease; N18.9 Chronic kidney disease, unspecified; M54.5 Low back pain; I48.0 Paroxysmal atrial fibrillation; G89.4 Chronic pain syndrome; E03.9 Hypothyroidism, unspecified; J44.9 Chronic obstructive pulmonary disease, unspecified; Z95.5 Presence of coronary angioplasty implant and graft; Z95.810 Presence of automatic (implantable) cardiac defibrillator; Z95.1 Presence of aortocoronary bypass graft; Z87.891 Personal history of nicotine dependence; Z86.73 Personal history of transient ischemic attack (TIA), and cerebral infarction without residual deficits

== ENCOUNTER 2016-06-03 19:32 | Observation (INO) | payer MEDICARE, OTHER ==
[2016-06-03 19:33] VITALS: BMI 46.0
--- NOTE | 2016-06-03 20:18 | C.PDOC ---
History Of Present Illness 51 y/o male presents to the ED with complains of intermittent chest pain for the past couple hours. Pain is nonradiating, dull, achy, 4/10. Pt reports numerous episodes of the same in the past with numerous workups. Pt has strong cardiac history. Denies vomiting, SOB, palpitations, or any other complaints. Time Seen by Provider: 06/03/16 20:18 Chief Complaint (Nursing): Chest Pain History Per: Patient History/Exam Limitations: no limitations Onset/Duration Of Symptoms: Hrs, Intermittent Episodes Current Symptoms Are (Timing): Still Present Severity: Mild Pain Scale Rating Of: 4 Quality: "Pain" Modifying Factors: None Exacerbating Factors: None Alleviating Factors: None Recent travel outside of the [place]: No Past Medical History Reviewed: Historical Data, Nursing Documentation, Vital Signs Vital Signs: Last Vital Signs Temp 98.3 F 06/03/16 19:43 Pulse 70 06/03/16 22:28 Resp 15 06/03/16 22:28 BP 125/73 06/03/16 22:28 Pulse Ox 100 06/03/16 22:28 - Medical History PMH: Back Problems, CAD, CHF, COPD, Diabetes, Deep Vein Thrombosis, Emphysema, Graves' Disease, HTN, Hypothyroidism, Peripheral Edema, Pneumonia, Sleep Apnea, TIA (Hx of Strokes-2008) Surgical History: CABG (2008), Coronary Stent (3 Stents Prior to Quadruple Bypass), Pacemaker (left upper chest) - [facility] Procedures ASSISTANCE WITH RESPIRATORY VENTILATION, 24-96 HRS, CPAP (10/15/15) INJECT/INFUSE NEC (10/09/12) Family History: States: No Known Family Hx - Social History Hx Tobacco Use: Yes Hx Alcohol Use: No Hx Substance Use: No - Immunization History Hx Tetanus Toxoid Vaccination: Yes Hx Influenza Vaccination: Yes Hx Pneumococcal Vaccination: Yes Review Of Systems Except As Marked, All Systems Reviewed And Found Negative. Constitutional: Negative for: Fever Cardiovascular: Positive for: Chest Pain. Negative for: Palpitations Respiratory: Negative for: Shortness of Breath Gastrointestinal: Negative for: Vomiting Neurological: Negative for: Headache Physical Exam - Physical Exam Appears: Non-toxic, No Acute Distress, Other (morbidly obese) Skin: Warm, Dry, No Rash Head: Atraumatic, Normacephalic Neck: Supple Chest: Symmetrical, Other (pacemaker on left) Cardiovascular: Rhythm Regular, No Murmur Respiratory: No Accessory Muscle Use, No Rales, Rhonchi (scattered), No Wheezing Gastrointestinal/Abdominal: Soft, No Tenderness, Other (obese) Extremity: Pedal Edema (bilateral), Other (poor vascularstasis skin changes) Neurological/Psych: Oriented x3, Normal Speech ED Course And Treatment - Laboratory Results Result Diagrams: 06/03/16 21:48 06/03/16 21:48 ECG: Interpreted By Me, Viewed By Me ECG Rhythm: Sinus Rhythm (78), Nonspecific Changes (100% paced) O2 Sat by Pulse Oximetry: 97 (on room air) Pulse Ox Interpretation: Normal - Radiology CXR: Interpreted by Me, Viewed By Me CXR Interpretation: Yes: Cardiomegaly, Other (pacer left, mild vasc urmila, unchanged from 05/17/16). No: Infiltrates, Fracture Reevaluation Time: 23:15 Reassessment Condition: Improved Medical Decision Making Medical Decision Making: Plan: EKG, labs, CXR, IV fluids Disposition Discussed With Dr.: Ousmane Amor Comment: accepted the pt on his service and took over the care at 11:20 pm Doctor Will See Patient In The: Hospital Counseled Patient/Family Regarding: Studies Performed, Diagnosis - Disposition Disposition: HOSPITALIZED Disposition Time: 20:18 Condition: FAIR - POA Present On Arrival: Poor Glycemic Control - Clinical Impression Clinical Impression: Chest pain, Congestive heart failure - Scribe Statement The provider has reviewed the documentation as recorded by the Jodi Davis Provider Attestation: All medical record entries made by the Nainibe were at my direction and personally dictated by me. I have reviewed the chart and agree that the record accurately reflects my personal performance of the history, physical exam, medical decision making, and the department course for this patient. I have also personally directed, reviewed, and agree with the discharge instructions and disposition. Decision To Admit - Pt Status Changed To: Hospital Disposition Of: Observation - . Bed Request Type: Telemetry Admitting Physician: Ousmane Amor Patient Diagnosis: Chest pain, Congestive heart failure
[2016-06-03] MEDS ORDERED: Aspirin 325 mg EC Tablets PO STA (20:19)
[2016-06-03] MEDS ORDERED: Aspirin 325 mg EC Tablets PO ONE (20:34)
[2016-06-03 21:54] LABS: BASO # 0.1 K/uL (0.0-0.2); BASO % 1.3 % (0.0-2.0); EOS # 0.2 K/uL (0.0-0.7); EOS % 2.8 % (0.0-4.0); HEMATOCRIT 34.7 % (35.0-51.0); LYMPH # 1.8 K/uL (1.0-4.3); LYMPH % 26.2 % (20.0-40.0); MEAN CELL VOLUME 78.3 fL (80.0-94.0); MEAN CORPUSCULAR HEMOGLOBIN 25.2 pg (27.0-31.0); MEAN CORPUSCULAR HGB CONC 32.2 g/dL (33.0-37.0); MEAN PLATELET VOLUME 8.5 fL (7.2-11.7); MONO # 0.6 K/uL (0.0-0.8); MONO % 8.5 % (0.0-10.0); NRBC % 0.1 % (0.0-2.0)
[2016-06-03 22:07] LABS: CHLORIDE 103 mmol/L (98-107); POTASSIUM 3.9 mmol/L (3.6-5.2); SODIUM 142 mmol/L (132-148)
[2016-06-03 22:09] LABS: BILIRUBIN,TOTAL 0.5 mg/dL (0.2-1.3); GFR AFRICAN-AMERICAN > 60
[2016-06-03 22:10] LABS: ALKALINE PHOSPHATASE 131 U/L (38-126); ALT/SGPT 22 U/L (21-72); AST/SGOT 16 U/L (17-59); BLOOD UREA NITROGEN 22 mg/dL (9-20); CARBON DIOXIDE 23 mmol/L (22-30); GLUCOSE,RANDOM 174 mg/dL (75-110); TOTAL PROTEIN 7.7 g/dL (6.3-8.3)
[2016-06-03 22:11] LABS: CALCIUM 8.6 mg/dl (8.6-10.4)
[2016-06-04] MEDS: oxyCODONE 30 mg Immediate Release Tab PO PRN ×4 (00:15→18:34)
--- NOTE | 2016-06-04 01:47 | CP.PCM.HP ---
History of Present Illness - History of Present Illness History of Present Illness: CHEIF COMPLAIN CHEST PAIN HPI ;51 y/o morbidly obese AA male well known to me with PMH OF HTN, HYPERLIPIDEMIA, CAD, A.FIB.BBRONCHIAL ASTHAMA, CHRONIC LOW BACK PAIN CABG, MULTIPLE ANGIOPLASTIES AND STENT presents to the ED with complains of intermittent chest pain for the past couple hours. Pain is sub sternal nonradiating, dull, achy, 4/10. Pt reports numerous episodes of the same in the past with numerous workups. Pt has strong cardiac history. Denies vomiting, SOB , palpitations, or any other complaints. Present on Admission - Present on Admission Any Indicators Present on Admission: No Review of Systems - Review of Systems Systems not reviewed;Unavailable: Acuity of Condition - Constitutional Constitutional: Fatigue, Lethargy, Weakness - EENT Eyes: absent: As Per HPI, Blind Spots, Blurred Vision, Change in Vision, Decreased Night Vision, Diplopia, Discharge, Dry Eye, Exophthalmos, Floaters, Irritation, Itchy Eyes, Loss of Peripheral Vision, Pain, Photophobia, Requires Corrective Lenses, Sees Flashes, Spots in Vision, Tunnel Vision, Other Visual Disturbances, Loss of Vision, Other Nose/Mouth/Throat: Nasal Congestion. absent: As Per HPI, Epistaxis, Nasal Discharge, Nasal Obstruction, Nasal Trauma, Nose Pain, Post Nasal Drip, Sinus Pain, Sinus Pressure, Bleeding Gums, Change in Voice, Dental Pain, Dry Mouth, Dysphagia, Halitosis, Hoarsness, Lip Swelling, Mouth Lesions, Mouth Pain, Odynophagia, Sore Throat, Throat Swelling, Tongue Swelling, Facial Pain, Neck Pain, Neck Mass, Other - Cardiovascular Cardiovascular: Chest Pain, Chest Pain at Rest, Dyspnea - Respiratory Respiratory: Cough, Dyspnea, Chest Congestion - Gastrointestinal Gastrointestinal: absent: As Per HPI, Abdominal Pain, Belching, Bloating, Change in Bowel Habits, Change in Stool Character, Coffee Ground Emesis, Constipation, Cramping, Diarrhea, Dyspepsia, Dysphagia, Early Satiety, Excessive Flatus, Fecal Incontinence, Heartburn, Hematemesis, Hematochezia, Loose Stools, Melena, Nausea, Odynophagia, Temesmus, Vomiting, Other - Genitourinary Genitourinary: absent: As Per HPI, Change in Urinary Stream, Difficulty Urinating, Dysuria, Flank Pain, Hematuria, Pyuria, Nocturia, Urinary Incontinence, Urinary Frequency, Urinary Hesitance, Urinary Urgency, Voiding Freq/Small Amts, Freq UTI, Hx Renal/Bladder Calculi, Hx /Renal Surgery, Bladder Distension, Other Past Patient History - Infectious Disease Hx of Infectious Diseases: None - Past Medical History & Family History Past Medical History?: Yes - Past Social History Smoking Status: Current Some Days Smoker - CARDIAC Hx Congestive Heart Failure: Yes Hx Hypertension: Yes Hx Pacemaker: Yes (left upper chest) Hx Peripheral Edema: Yes - PULMONARY Hx Chronic Obstructive Pulmonary Disease (COPD): Yes Hx Emphysema: Yes Hx Pneumonia: Yes Hx Sleep Apnea: Yes - NEUROLOGICAL Hx Transient Ischemic Attacks (TIA): Yes (Hx of Strokes-2008) - HEENT Hx HEENT Problems: No - RENAL Hx Chronic Kidney Disease: No - ENDOCRINE/METABOLIC Hx Hypothyroidism: Yes - HEMATOLOGICAL/ONCOLOGICAL Hx Blood Disorders: No Hx Blood Transfusions: No - INTEGUMENTARY Hx Dermatological Problems: No - MUSCULOSKELETAL/RHEUMATOLOGICAL Hx Musculoskeletal Disorders: Yes Hx Falls: No Other/Comment: knee surgery 2011 - GASTROINTESTINAL Hx Gastrointestinal Disorders: No - GENITOURINARY/GYNECOLOGICAL Hx Genitourinary Disorders: Yes (UTI) - PSYCHIATRIC Hx Substance Use: No - SURGICAL HISTORY Hx Coronary Artery Bypass Graft: Yes (2008) Hx Coronary Stent: Yes (3 Stents Prior to Quadruple Bypass) - ANESTHESIA Hx Anesthesia: Yes Hx Anesthesia Reactions: No Hx Malignant Hyperthermia: No Meds Allergies/Adverse Reactions: Allergies Allergy/AdvReac Type Severity Reaction Status Date / Time No Known Drug Allergies Allergy n/a Verified 07/04/16 00:48 Physical Exam - Constitutional Appears: No Acute Distress - Head Exam Head Exam: ATRAUMATIC, NORMAL INSPECTION, NORMOCEPHALIC - Eye Exam Eye Exam: EOMI, Normal appearance, PERRL Pupil Exam: NORMAL ACCOMODATION, PERRL - ENT Exam ENT Exam: Mucous Membranes Dry - Respiratory Exam Respiratory Exam: Decreased Breath Sounds, Rales - Cardiovascular Exam Cardiovascular Exam: REGULAR RHYTHM - GI/Abdominal Exam GI & Abdominal Exam: Normal Bowel Sounds, Soft. absent: Tenderness - Extremities Exam Extremities exam: Positive for: pedal edema - Back Exam Back exam: paraspinal tenderness Results - Vital Signs Recent Vital Signs: Last Vital Signs Temp 98.3 F 06/03/16 19:43 Pulse 72 06/04/16 01:22 Resp 15 06/04/16 01:22 BP 82/32 L 06/04/16 01:22 Pulse Ox 97 06/03/16 23:22 - Labs Result Diagrams: 06/03/16 21:48 06/03/16 21:48 Labs: Laboratory Results - last 24 hr 06/04/16 00:24 POC Glucose (mg/dL) 149 H Assessment & Plan (1) Chest pain Status: Acute (2) Diabetes mellitus Status: Acute (3) Congestive heart failure Status: Acute (4) Low back pain Status: Acute - Assessment and Plan (Free Text) Plan: ADMIT PT SEEN AND EXAMINED KIA\TAILED ORDERS WRITTEN
[2016-06-04 03:04] VITALS: RESP 20
[2016-06-04] MEDS: Levothyroxine 100 MCG TAB PO SCH (05:37)
[2016-06-04] MEDS: (Novolog) Insulin Aspart, Recombinant 100 u/ml 10 ml vial SC SCH ×3 (08:14→18:06)
--- NOTE | 2016-06-04 10:56 | RAD ---
PROCEDURE: CHEST RADIOGRAPH, 1 VIEW HISTORY: chest pain COMPARISON: Comparison is made to 05/17/2016 FINDINGS: LUNGS: No significant interval change in the lungs noted since the previous study. PLEURA: No pneumothorax or pleural fluid seen. CARDIOVASCULAR: Cardiac silhouette is mildly enlarged OSSEOUS STRUCTURES: No significant abnormalities. VISUALIZED UPPER ABDOMEN: Normal. OTHER FINDINGS: No significant interval change in the right-sided Port-A-Cath since the previous exam. No significant change in the position of the left-sided defibrillator. IMPRESSION: No significant interval change compared to the previous study.
--- NOTE | 2016-06-04 16:51 | CARD ---
APPROVED REPORT EKG Measurement Heart [id number] <Conclusion> Atrial-sensed ventricular-paced rhythm Abnormal ECG
[2016-06-04] MEDS ORDERED: Digoxin 125 mcg (0.125 mg) Tab PO SCH (18:00)
[2016-06-04 18:09] VITALS: PULSE 80
--- NOTE | 2016-06-05 00:18 | CP.PCM.PN ---
Subjective - Date & Time of Evaluation Date of Evaluation: 06/04/16 Time of Evaluation: 10:22 - Subjective Subjective: Pt seen and examined, is less short of breath, feeling better Objective - Vital Signs/Intake and Output Vital Signs (last 24 hours): Temp Pulse Resp BP Pulse Ox 98.5 F 79 20 166/90 H 100 06/04/16 15:00 06/04/16 15:00 06/04/16 15:00 06/04/16 18:07 06/04/16 15:00 - Medications Medications: Current Medications Apixaban (Eliquis) 5 mg PO Q12 [facility] Last Admin: 06/04/16 10:05 Dose: 5 mg Carvedilol (Coreg) 25 mg PO BID [facility] Last Admin: 06/04/16 18:07 Dose: 25 mg Clopidogrel Bisulfate (Plavix) 75 mg PO DAILY [facility] Last Admin: 06/04/16 10:03 Dose: 75 mg Digoxin (Lanoxin) 0.125 mg PO DAILY@1800 [facility] Last Admin: 06/04/16 18:05 Dose: 0.125 mg Ferrous Sulfate (Feosol) 325 mg PO DAILY [facility] Last Admin: 06/04/16 10:03 Dose: 325 mg Hydroxychloroquine Sulfate (Plaquenil) 200 mg PO BID [facility] Last Admin: 06/04/16 18:07 Dose: 200 mg Insulin Aspart (Novolog) 0 unit SC ACHS [facility] PRN Reason: Protocol Stop: 06/11/16 07:29 Last Admin: 06/04/16 18:06 Dose: 2 unit Levothyroxine Sodium (Synthroid) 100 mcg PO DAILY@0630 [facility] Last Admin: 06/04/16 05:37 Dose: 100 mcg Lisinopril (Zestril) 5 mg PO DAILY [facility] Last Admin: 06/04/16 10:03 Dose: 5 mg Oxycodone HCl (Oxycodone Immediate Release Tab) 30 mg PO Q4 PRN PRN Reason: Pain, moderate (4-7) Last Admin: 06/04/16 18:34 Dose: 30 mg Pneumococcal Polyvalent Vaccine (Pneumovax 23 Vaccine) 0.5 ml IM .ONCE ONE Stop: 06/07/16 14:01 Rosuvastatin Calcium (Crestor) 40 mg PO [facility] Sitagliptin Phosphate (Januvia) 25 mg PO DAILY [facility] Last Admin: 06/04/16 10:03 Dose: 25 mg - Labs Labs: PT 11.1 SECONDS (9.7-12.2) 06/03/16 21:48 INR 1.0 06/03/16 21:48 APTT 29 SECONDS (21-34) 06/03/16 21:48 - Constitutional Appears: No Acute Distress - Head Exam Head Exam: ATRAUMATIC, NORMAL INSPECTION, NORMOCEPHALIC - Eye Exam Eye Exam: EOMI, Normal appearance, PERRL Pupil Exam: NORMAL ACCOMODATION, PERRL - ENT Exam ENT Exam: Mucous Membranes Moist, Normal Exam - Respiratory Exam Respiratory Exam: Decreased Breath Sounds, Rhonchi - Cardiovascular Exam Cardiovascular Exam: REGULAR RHYTHM, +S1, +S2. absent: Murmur Assessment and Plan (1) Chest pain Status: Acute (2) Diabetes mellitus Status: Acute (3) Congestive heart failure Status: Acute (4) Low back pain Status: Acute
[2016-06-05] MEDS: oxyCODONE 30 mg Immediate Release Tab PO PRN ×2 (04:22→09:25)
[2016-06-05] MEDS: Levothyroxine 100 MCG TAB PO SCH (06:25)
[2016-06-05 08:07] VITALS: TEMP 99.3; O2SAT 100
[2016-06-05] MEDS: (Novolog) Insulin Aspart, Recombinant 100 u/ml 10 ml vial SC SCH ×2 (08:37→13:43)
[2016-06-05 09:36] VITALS: BP 162/104
[2016-06-05 11:55] VITALS: PULSE 75
--- NOTE | 2016-06-05 12:28 | PCM.HF ---
Heart Failure Core Measure - Heart Failure Ejection Fraction: 40 % or Greater JEANNE Inhibitor Prescribed: Yes Beta-Rian Prescribed: Carvedilol Angiotensin II Receptor Rian Prescribed: No Contraindication/Reason for not providing: on JEANNE AnticoagulationTherapy for Atrial Fibrillation/Atrialflutter: Yes Aldosterone Antagonist Prescribed: No Contraindication/Reason for not providing: ef>50 Hydralazine Nitrate Prescribed: No Contraindication/Reason for not providing: ef>50 Implantable Cardioverter Defibrillator Therapy: Yes Cardiac Resynchronization Therapy Prescribed: No Contraindication/Reason for not providing: pt has AICD - Follow up Will be discharged to: Home Follow Up Date (must be within 7 days from discharge): 06/10/16 Follow Up Time: 09:00
--- NOTE | 2016-06-05 12:28 | CP.PCM.PN ---
Subjective - Date & Time of Evaluation Date of Evaluation: 06/05/16 Time of Evaluation: 11:35 - Subjective Subjective: Pt seen and examined today, sob improved, denies any palpitations, headache No overnight events recorded on monitor - Pt refusing blood work and iv access Objective - Vital Signs/Intake and Output Vital Signs (last 24 hours): Temp Pulse Resp BP Pulse Ox 99.3 F 75 20 162/104 H 100 06/05/16 08:04 06/05/16 11:47 06/05/16 08:04 06/05/16 09:31 06/05/16 08:04 Intake and Output: 06/05/16 06/05/16 06:59 18:59 Intake Total 240 Balance 240 - Medications Medications: Current Medications Apixaban (Eliquis) 5 mg PO Q12 [facility] Last Admin: 06/05/16 09:33 Dose: 5 mg Carvedilol (Coreg) 25 mg PO BID [facility] Last Admin: 06/05/16 09:31 Dose: 25 mg Clopidogrel Bisulfate (Plavix) 75 mg PO DAILY [facility] Last Admin: 06/05/16 09:30 Dose: 75 mg Digoxin (Lanoxin) 0.125 mg PO DAILY@1800 [facility] Last Admin: 06/04/16 18:05 Dose: 0.125 mg Ferrous Sulfate (Feosol) 325 mg PO DAILY [facility] Last Admin: 06/05/16 09:37 Dose: 325 mg Hydroxychloroquine Sulfate (Plaquenil) 200 mg PO BID [facility] Last Admin: 06/05/16 09:30 Dose: 200 mg Insulin Aspart (Novolog) 0 unit SC ACHS [facility] PRN Reason: Protocol Stop: 06/11/16 07:29 Last Admin: 06/05/16 08:37 Dose: Not Given Levothyroxine Sodium (Synthroid) 100 mcg PO DAILY@0630 [facility] Last Admin: 06/05/16 06:25 Dose: 100 mcg Lisinopril (Zestril) 5 mg PO DAILY [facility] Last Admin: 06/05/16 09:31 Dose: 5 mg Oxycodone HCl (Oxycodone Immediate Release Tab) 30 mg PO Q4 PRN PRN Reason: Pain, moderate (4-7) Last Admin: 06/05/16 09:25 Dose: 30 mg Pneumococcal Polyvalent Vaccine (Pneumovax 23 Vaccine) 0.5 ml IM .ONCE ONE Stop: 06/07/16 14:01 Rosuvastatin Calcium (Crestor) 40 mg PO HS [facility] Sitagliptin Phosphate (Januvia) 25 mg PO DAILY [facility] Last Admin: 06/05/16 09:30 Dose: 25 mg - Labs Labs: PT 11.1 SECONDS (9.7-12.2) 06/03/16 21:48 INR 1.0 06/03/16 21:48 APTT 29 SECONDS (21-34) 06/03/16 21:48 Assessment and Plan - Assessment and Plan (Free Text) Assessment: A/P 51 yr old male admitted for chest pain / CHF troponin x 2 - negative EKG- Atrial sensed ventricular paced rhythm - NO ST - T WAVE CHANGES seen by Dr. Amor, cleared for discharge home today an df/u with office next week Discharge plan discussed with Patient including f/u vis t , who understands and agrees with plan Pt instructed to returns to ED if symptoms returns Pt denies the needs for any RX
--- NOTE | 2016-06-05 23:46 | CP.PCM.DIS ---
Provider - Provider Date of Admission: 06/03/16 23:14 Attending physician: Ousmane Amor MD Time Spent in preparation of Discharge (in minutes): 30 Diagnosis - Discharge Diagnosis (1) Chest pain Status: Acute (2) Diabetes mellitus Status: Acute (3) Congestive heart failure Status: Acute (4) Low back pain Status: Acute Hospital Course - Lab Results Lab Results: Most Recent Lab Values WBC 7.0 K/uL (4.8-10.8) 06/03/16 21:48 RBC 4.44 Mil/uL (4.40-5.90) 06/03/16 21:48 Hgb 11.2 g/dL (12.0-18.0) L 06/03/16 21:48 Hct 34.7 % (35.0-51.0) L 06/03/16 21:48 MCV 78.3 fL (80.0-94.0) L 06/03/16 21:48 MCH 25.2 pg (27.0-31.0) L 06/03/16 21:48 MCHC 32.2 g/dL (33.0-37.0) L 06/03/16 21:48 RDW 17.0 % (11.5-14.5) H 06/03/16 21:48 Plt Count 183 K/uL (130-400) 06/03/16 21:48 MPV 8.5 fL (7.2-11.7) 06/03/16 21:48 Neut % (Auto) 61.2 % (50.0-75.0) 06/03/16 21:48 Lymph % (Auto) 26.2 % (20.0-40.0) 06/03/16 21:48 Menard % (Auto) 8.5 % (0.0-10.0) 06/03/16 21:48 Eos % (Auto) 2.8 % (0.0-4.0) 06/03/16 21:48 Baso % (Auto) 1.3 % (0.0-2.0) 06/03/16 21:48 Neut # 4.3 K/uL (1.8-7.0) 06/03/16 21:48 Lymph # 1.8 K/uL (1.0-4.3) 06/03/16 21:48 Menard # 0.6 K/uL (0.0-0.8) 06/03/16 21:48 Eos # 0.2 K/uL (0.0-0.7) 06/03/16 21:48 Baso # 0.1 K/uL (0.0-0.2) 06/03/16 21:48 PT 11.1 SECONDS (9.7-12.2) 06/03/16 21:48 INR 1.0 06/03/16 21:48 APTT 29 SECONDS (21-34) 06/03/16 21:48 Sodium 142 mmol/L (132-148) 06/03/16 21:48 Potassium 3.9 mmol/L (3.6-5.2) 06/03/16 21:48 Chloride 103 mmol/L (98-107) 06/03/16 21:48 Carbon Dioxide 23 mmol/L (22-30) 06/03/16 21:48 Anion Gap 19 (10-20) 06/03/16 21:48 BUN 22 mg/dL (9-20) H 06/03/16 21:48 Creatinine 1.0 MG/DL (0.8-1.5) 06/03/16 21:48 Est GFR ( Amer) > 60 06/03/16 21:48 Est GFR (Non-Af Amer) > 60 06/03/16 21:48 POC Glucose (mg/dL) 256 mg/dL (65-110) H 06/04/16 21:33 Random Glucose 174 mg/dL (75-110) H 06/03/16 21:48 Calcium 8.6 mg/dl (8.6-10.4) 06/03/16 21:48 Total Bilirubin 0.5 mg/dL (0.2-1.3) 06/03/16 21:48 AST 16 U/L (17-59) L 06/03/16 21:48 ALT 22 U/L (21-72) 06/03/16 21:48 Alkaline Phosphatase 131 U/L (38-126) H 06/03/16 21:48 Total Creatine Kinase 64 U/L (55-170) 06/05/16 08:08 CK-MB (Mass) 0.27 ng/mL (0.0-3.38) 06/05/16 08:08 Troponin I < 0.0120 ng/mL (0.00-0.120) 06/03/16 21:48 Troponin I, Quant < 0.0120 ng/mL (0.00-0.120) 06/05/16 08:08 NT-Pro-B Natriuret Pep 1550 pg/mL (0-450) H 06/03/16 21:48 Total Protein 7.7 g/dL (6.3-8.3) 06/03/16 21:48 Albumin 3.9 g/dL (3.5-5.0) 06/03/16 21:48 Globulin 3.8 gm/dL (2.2-3.9) 06/03/16 21:48 Albumin/Globulin Ratio 1.0 (1.0-2.1) 06/03/16 21:48 - Hospital Course Hospital Course: Pt seen and examined today, sob improved, denies any palpitations, headache No overnight events recorded on monitor - Pt refusing blood work and iv access pt is discharged today Discharge Exam - Head Exam Head Exam: ATRAUMATIC, NORMAL INSPECTION, NORMOCEPHALIC - Eye Exam Eye Exam: EOMI, Normal appearance, PERRL Pupil Exam: NORMAL ACCOMODATION, PERRL - Respiratory Exam Respiratory Exam: Decreased Breath Sounds, Wheezes - Cardiovascular Exam Cardiovascular Exam: +S1, +S2, Systolic Murmur Discharge Plan - Follow Up Plan Condition: FAIR Disposition: HOME/ ROUTINE Instructions: Heart Failure (DC), Chest Pain (DC), Heart Healthy Diet (DC), Hypertension (DC) Additional Instructions: Please f/u with Dr. Amor office next thursday Resume all home medications Referrals: Ousmane Amor MD [Staff Provider] -
[2016-06-07] MEDS ORDERED: Pneumococcal 23-Valent Vaccine IM ONE (14:00)
[2016-06-07] MEDS ORDERED: Influenza Virus Vaccine 45 mcg/0.5 ml Syr IM ONE (14:00)
== END 2016-06-05 14:35 | disposition home or self-care (01) ==
LOC: C.ER 19:32 → C.9E 23:14 → C.6T 06-04 01:49
PROVIDERS: ADMIT Internal Medicine; ATTEND Internal Medicine
DX: R07.9 Chest pain, unspecified (principal); M54.5 Low back pain; E11.9 Type 2 diabetes mellitus without complications; Z79.4 Long term (current) use of insulin; I50.9 Heart failure, unspecified; E66.01 Morbid (severe) obesity due to excess calories; Z68.42 Body mass index [BMI] 45.0-49.9, adult; J44.9 Chronic obstructive pulmonary disease, unspecified; I48.91 Unspecified atrial fibrillation; Z87.891 Personal history of nicotine dependence; E78.5 Hyperlipidemia, unspecified
CPT/HCPCS: 36415; 71010; 80053; 82948; 83880; 84484; 85025; 85610; 85730; 93005; 99285; G0378

== ENCOUNTER 2016-06-18 20:33 | Observation (INO) | payer MEDICARE, OTHER ==
[2016-06-18 20:33] VITALS: BMI 46.0
--- NOTE | 2016-06-18 21:26 | C.PDOC ---
History Of Present Illness 51 y/o male with PMHx of cardiac disease, MD, CABG, bypass surgery, and pacemaker, presents to ED with c/o chest pain and SOB since 5 PM today. Patient describes pain as squeezing and localized to midsternal chest. Notes he took aspirin prior to arrival and chest pain has since resolved. Patient states he has recently been getting SOB on exertion and notes his chronic peripheral edema has been worsening. Time Seen by Provider: 06/18/16 20:51 Chief Complaint (Nursing): Chest Pain History Per: Patient History/Exam Limitations: no limitations Onset/Duration Of Symptoms: Hrs Current Symptoms Are (Timing): Better Quality: Squeezing Associated Symptoms: denies: Diaphoresis Past Medical History Reviewed: Historical Data, Nursing Documentation, Vital Signs Vital Signs: Last Vital Signs Temp 97.4 F L 06/18/16 20:52 Pulse 95 H 06/18/16 20:52 Resp 20 06/18/16 20:52 BP 99/59 L 06/18/16 20:52 Pulse Ox 99 06/18/16 21:28 - Medical History PMH: Anxiety, Back Problems, CAD, CHF, COPD, Diabetes, Deep Vein Thrombosis, Emphysema, Graves' Disease, HTN, Hypothyroidism, Peripheral Edema, Pneumonia, Sleep Apnea, TIA (Hx of Strokes-2008) Surgical History: CABG (2008), Coronary Stent (3 Stents Prior to Quadruple Bypass), Pacemaker (left upper chest) - [facility] Procedures ASSISTANCE WITH RESPIRATORY VENTILATION, 24-96 HRS, CPAP (10/15/15) INJECT/INFUSE NEC (10/09/12) Family History: States: Unknown Family Hx - Social History Hx Tobacco Use: Yes Hx Alcohol Use: No Hx Substance Use: No - Immunization History Hx Tetanus Toxoid Vaccination: Yes Hx Influenza Vaccination: Yes Hx Pneumococcal Vaccination: Yes Review Of Systems Except As Marked, All Systems Reviewed And Found Negative. Constitutional: Negative for: Fever, Chills Cardiovascular: Positive for: Chest Pain. Negative for: Palpitations Respiratory: Positive for: Shortness of Breath. Negative for: Wheezing Gastrointestinal: Negative for: Nausea, Vomiting Skin: Negative for: Rash Neurological: Negative for: Dizziness Physical Exam - Physical Exam Appears: Non-toxic, No Acute Distress Skin: Normal Color, Warm, Dry, No Diaphoretic Head: Atraumatic, Normacephalic Oral Mucosa: Moist Chest: Symmetrical Cardiovascular: Rhythm Regular Respiratory: Normal Breath Sounds, No Rales, No Rhonchi, No Wheezing Gastrointestinal/Abdominal: Soft, No Tenderness Back: Normal Inspection Extremity: Normal ROM, Pedal Edema (tense pedal edema bilaterally ) Neurological/Psych: Oriented x3, Normal Speech, Normal Cognition ED Course And Treatment - Laboratory Results Result Diagrams: 06/18/16 21:27 06/18/16 21:27 Lab Interpretation: No Acute Changes ECG: Interpreted By Me ECG Rhythm: AV Paced O2 Sat by Pulse Oximetry: 99 (RA) Pulse Ox Interpretation: Normal - Radiology CXR: Interpreted by Me CXR Interpretation: Yes: Other (increased vascular congestion compared to 06/03) Progress Note: EKG, CxR, bloodwork ordered and reviewed. Reevaluation Time: 23:18 Reassessment Condition: Improved (Patient remains comfortable in Ed.) - Physician Consult Information Time Consulting Physician Contacted: 23:18 Physician Contacted: Ousmane Amor Outcome Of Conversation: Patient to remain in ED for chest pain evaluation. Disposition - Disposition Disposition: HOSPITALIZED Disposition Time: 23:18 Condition: STABLE - POA Present On Arrival: None Core Measure Indicators: Chest Pain - Clinical Impression Clinical Impression: Chest pain, CHF exacerbation - Scribe Statement The provider has reviewed the documentation as recorded by the Jodi De Luna Provider Scribe Attestation: All medical record entries made by the Nainibchris were at my direction and personally dictated by me. I have reviewed the chart and agree that the record accurately reflects my personal performance of the history, physical exam, medical decision making, and the department course for this patient. I have also personally directed, reviewed, and agree with the discharge instructions and disposition.
[2016-06-18 21:33] LABS: BASO # 0.1 K/uL (0.0-0.2); BASO % 0.6 % (0.0-2.0); EOS # 0.1 K/uL (0.0-0.7); HEMATOCRIT 33.1 % (35.0-51.0); LYMPH # 1.8 K/uL (1.0-4.3); LYMPH % 16.6 % (20.0-40.0); MEAN CELL VOLUME 78.9 fL (80.0-94.0); MEAN CORPUSCULAR HEMOGLOBIN 24.5 pg (27.0-31.0); MEAN PLATELET VOLUME 8.7 fL (7.2-11.7); MONO # 0.8 K/uL (0.0-0.8); MONO % 7.5 % (0.0-10.0); RED CELL DISTRIBUTION WIDTH 17.1 % (11.5-14.5)
[2016-06-18 21:36] LABS: WHITE BLOOD COUNT 10.8 K/uL (4.8-10.8)
[2016-06-18 21:49] LABS: CHLORIDE 100 mmol/L (98-107); POTASSIUM 4.2 mmol/L (3.6-5.2); SODIUM 140 mmol/L (132-148)
[2016-06-18 21:51] LABS: ALKALINE PHOSPHATASE 96 U/L (38-126); AST/SGOT 14 U/L (17-59); BILIRUBIN,TOTAL 0.3 mg/dL (0.2-1.3); CARBON DIOXIDE 28 mmol/L (22-30); GFR AFRICAN-AMERICAN > 60; TOTAL PROTEIN 7.3 g/dL (6.3-8.3)
[2016-06-18 21:52] LABS: ALT/SGPT 15 U/L (21-72); BLOOD UREA NITROGEN 36 mg/dL (9-20); CALCIUM 8.3 mg/dl (8.6-10.4); GLUCOSE,RANDOM 183 mg/dL (75-110)
[2016-06-19] MEDS: oxyCODONE 30 mg Immediate Release Tab PO PRN ×5 (03:51→23:51)
--- NOTE | 2016-06-19 07:36 | RAD ---
HISTORY: chest pain COMPARISON: Chest x-ray performed 06/03/16 TECHNIQUE: Chest, one view. FINDINGS: Right-sided MediPort extends expected location of the cavoatrial junction. LUNGS: Mild pulmonary venous congestion. Please note that chest x-ray has limited sensitivity for the detection of pulmonary masses. PLEURA: No significant pleural effusion identified. No definite pneumothorax . CARDIOVASCULAR: Cardiomegaly. Median sternotomy wires. Left-sided AICD. OSSEOUS STRUCTURES: Degenerative changes. VISUALIZED UPPER ABDOMEN: Unremarkable. OTHER FINDINGS: None. IMPRESSION: No significant interval change.
[2016-06-19] MEDS: Levothyroxine 100 MCG TAB PO SCH (08:28)
[2016-06-19] MEDS: (Novolog) Insulin Aspart, Recombinant 100 u/ml 10 ml vial SC SCH ×4 (08:30→21:53)
[2016-06-19] MEDS ORDERED: Aspirin 325 mg EC Tablets PO SCH (10:00)
[2016-06-19] MEDS ORDERED: Digoxin 125 mcg (0.125 mg) Tab PO SCH (18:00)
[2016-06-19 18:21] VITALS: PULSE 84
[2016-06-19 19:02] VITALS: RESP 20
[2016-06-19] MEDS ORDERED: MethylPREDNISolone 40 mg Vial IVP STA (22:19)
--- NOTE | 2016-06-20 01:37 | CP.PCM.HP ---
History of Present Illness - History of Present Illness History of Present Illness: Cheif complain: chest pain HPI: 51 y/o AA morbidly obese male with PMHx of DM, HTN, HYperlipidemia, cardiac disease, MO, CABG, bypass surgery, sleep apnea, SLE and pacemaker,poor and unreliable historian, pt complaince with medications and follow up is questionable, He presents to ED with c/o chest pain and SOB since 5 PM today. Patient describes pain as squeezing and localized to midsternal chest. not associated with diaphoresisi, PND, Notes he took aspirin prior to arrival and chest pain has since resolved. Patient states he has recently been getting SOB on exertion and notes his chronic peripheral edema has been worsening.also c/o b /l wrist pain and swelling, back pain, denies any h/o fall, trauma, seizure, LOC , vertigo Present on Admission - Present on Admission Any Indicators Present on Admission: No Review of Systems - Review of Systems Systems not reviewed;Unavailable: Acuity of Condition - Constitutional Constitutional: Fatigue, Lethargy, Snoring, Sleep Apnea - EENT Eyes: absent: As Per HPI, Blind Spots, Blurred Vision, Change in Vision, Decreased Night Vision, Diplopia, Discharge, Dry Eye, Exophthalmos, Floaters, Irritation, Itchy Eyes, Loss of Peripheral Vision, Pain, Photophobia, Requires Corrective Lenses, Sees Flashes, Spots in Vision, Tunnel Vision, Other Visual Disturbances, Loss of Vision, Other Nose/Mouth/Throat: absent: As Per HPI, Epistaxis, Nasal Congestion, Nasal Discharge, Nasal Obstruction, Nasal Trauma, Nose Pain, Post Nasal Drip, Sinus Pain, Sinus Pressure, Bleeding Gums, Change in Voice, Dental Pain, Dry Mouth, Dysphagia, Halitosis, Hoarsness, Lip Swelling, Mouth Lesions, Mouth Pain, Odynophagia, Sore Throat, Throat Swelling, Tongue Swelling, Facial Pain, Neck Pain, Neck Mass, Other - Cardiovascular Cardiovascular: Chest Pain, Dyspnea, Dyspnea on Exertion, Pedal Edema. absent: As Per HPI, Acrocyanosis, Chest Pain at Rest, Chest Pain with Activity, Claudication, Diaphoresis, Edema, Irregular Heart Rhythm, Pain Radiating to Arm/ Neck/Jaw, Leg Edema, Leg Ulcers, Lightheadedness, Orthopnea, Palpitations, Paroxysmal Nocturnal Dyspnea, Radiating Pain, Rapid Heart Rate, Slow Heart Rate , Syncope, Other - Respiratory Respiratory: Cough, Wheezing, Snoring - Gastrointestinal Gastrointestinal: absent: As Per HPI, Abdominal Pain, Belching, Bloating, Change in Bowel Habits, Change in Stool Character, Coffee Ground Emesis, Constipation, Cramping, Diarrhea, Dyspepsia, Dysphagia, Early Satiety, Excessive Flatus, Fecal Incontinence, Heartburn, Hematemesis, Hematochezia, Loose Stools, Melena, Nausea, Odynophagia, Temesmus, Vomiting, Other - Genitourinary Genitourinary: Dysuria, Pyuria, Nocturia Past Patient History - Infectious Disease Hx of Infectious Diseases: None - Past Medical History & Family History Past Medical History?: Yes - Past Social History Smoking Status: Light Smoker < 10 Cigarettes Daily - CARDIAC Hx Cardiac Disorders: Yes Hx Congestive Heart Failure: Yes Hx Heart Attack: Yes (2007) Hx Hypertension: Yes Hx Pacemaker: Yes (left upper chest) Hx Peripheral Edema: Yes - PULMONARY Hx Respiratory Disorders: Yes Hx Chronic Obstructive Pulmonary Disease (COPD): Yes Hx Emphysema: Yes Hx Pneumonia: Yes Hx Sleep Apnea: Yes - NEUROLOGICAL Hx Neurological Disorder: Yes Hx Transient Ischemic Attacks (TIA): Yes (Hx of Strokes-2008) - HEENT Hx HEENT Problems: No - RENAL Hx Chronic Kidney Disease: No - ENDOCRINE/METABOLIC Hx Endocrine Disorders: Yes Hx Hypothyroidism: Yes - HEMATOLOGICAL/ONCOLOGICAL Hx Blood Disorders: No Hx Blood Transfusions: No - INTEGUMENTARY Hx Dermatological Problems: No - MUSCULOSKELETAL/RHEUMATOLOGICAL Hx Musculoskeletal Disorders: Yes Hx Falls: No Other/Comment: knee surgery 2011 - GASTROINTESTINAL Hx Gastrointestinal Disorders: No - GENITOURINARY/GYNECOLOGICAL Hx Genitourinary Disorders: Yes (UTI) - PSYCHIATRIC Hx Anxiety: Yes Hx Substance Use: No - SURGICAL HISTORY Hx Surgeries: Yes Hx Coronary Artery Bypass Graft: Yes (2008) Hx Coronary Stent: Yes (3 Stents Prior to Quadruple Bypass) - ANESTHESIA Hx Anesthesia: Yes Hx Anesthesia Reactions: No Hx Malignant Hyperthermia: No Meds Allergies/Adverse Reactions: Allergies Allergy/AdvReac Type Severity Reaction Status Date / Time No Known Drug Allergies Allergy n/a Verified 07/04/16 00:48 Physical Exam - Constitutional Appears: No Acute Distress, Agitated, Chronically Ill - Eye Exam Eye Exam: EOMI, Normal appearance, PERRL Pupil Exam: NORMAL ACCOMODATION, PERRL - Respiratory Exam Respiratory Exam: Decreased Breath Sounds, Rales, Wheezes, NORMAL BREATHING PATTERN - Cardiovascular Exam Cardiovascular Exam: +S1, +S2, Systolic Murmur - GI/Abdominal Exam GI & Abdominal Exam: Normal Bowel Sounds, Soft. absent: Tenderness - Extremities Exam Extremities exam: Positive for: pedal edema - Neurological Exam Neurological exam: Alert, CN II-XII Intact, Normal Gait, Oriented x3, Reflexes Normal - Psychiatric Exam Psychiatric exam: Anxious - Skin Skin Exam: Dry, Intact, Normal Color, Warm Results - Vital Signs Recent Vital Signs: Last Vital Signs Temp 98.5 F 06/19/16 19:00 Pulse 75 06/19/16 19:00 Resp 20 06/19/16 19:00 BP 130/80 06/19/16 19:00 Pulse Ox 98 06/19/16 19:00 - Labs Result Diagrams: 06/18/16 21:27 06/18/16 21:27 Labs: Laboratory Results - last 24 hr 06/19/16 06/19/16 06/19/16 08:25 08:41 21:36 POC Glucose (mg/dL) 167 H 234 H Total Creatine Kinase 41 L CK-MB (Mass) 0.45 Troponin I, Quant < 0.0120 Assessment & Plan (1) Chest pain Status: Acute (2) Diabetes mellitus Status: Acute (3) Chronic pain syndrome Status: Acute (4) CHF exacerbation Status: Acute (5) Low back pain Status: Acute (6) Wrist pain, acute Status: Acute - Assessment and Plan (Free Text) Plan: seen and examined, detailed orders written
[2016-06-20 01:54] VITALS: BP 136/77; TEMP 98.2; O2SAT 100
[2016-06-20 04:36] VITALS: PULSE 73
[2016-06-20] MEDS: oxyCODONE 30 mg Immediate Release Tab PO PRN ×2 (04:51→10:30)
[2016-06-20] MEDS: Levothyroxine 100 MCG TAB PO SCH (06:28)
--- NOTE | 2016-06-20 11:55 | CARD ---
APPROVED REPORT EKG Measurement Heart [id number] IN 126P56 [id number] <Conclusion> Atrial-sensed ventricular-paced rhythm Abnormal ECG
--- NOTE | 2016-06-20 12:08 | CP.PCM.PN ---
Subjective - Date & Time of Evaluation Date of Evaluation: 06/20/16 Time of Evaluation: 12:00 - Subjective Subjective: Pt seen an d examined today states chest pain resolved, LE edema improved , denies any sob , palpitations, dizziness No overnight events recorded on monitor No events reported by RN Troponin x 3 negative Ekg-x 2 , No ST- t wave changes , No changes from previous EKG Objective - Vital Signs/Intake and Output Vital Signs (last 24 hours): Temp Pulse Resp BP Pulse Ox 98.2 F 73 20 136/77 100 06/19/16 23:40 06/20/16 04:36 06/19/16 23:40 06/19/16 23:40 06/19/16 23:40 - Medications Medications: Current Medications Apixaban (Eliquis) 5 mg PO BID [facility] Last Admin: 06/19/16 18:24 Dose: 5 mg Aspirin (Ecotrin) 325 mg PO DAILY [facility] Last Admin: 06/19/16 10:23 Dose: 325 mg Carvedilol (Coreg) 25 mg PO BID [facility] Last Admin: 06/19/16 18:20 Dose: 25 mg Clopidogrel Bisulfate (Plavix) 75 mg PO DAILY [facility] Last Admin: 06/19/16 10:23 Dose: 75 mg Digoxin (Lanoxin) 0.125 mg PO DAILY@1800 [facility] Last Admin: 06/19/16 18:20 Dose: 0.125 mg Furosemide (Lasix) 40 mg IVP BID [facility] Last Admin: 06/19/16 18:20 Dose: 40 mg Hydroxychloroquine Sulfate (Plaquenil) 200 mg PO BID [facility] Last Admin: 06/19/16 18:20 Dose: 200 mg Insulin Aspart (Novolog) 0 unit [facility] PRN Reason: Protocol Last Admin: 06/19/16 21:53 Dose: Not Given Levothyroxine Sodium (Synthroid) 100 mcg PO DAILY@0630 [facility] Last Admin: 06/20/16 06:28 Dose: 100 mcg Lisinopril (Zestril) 2.5 mg PO DAILY [facility] Last Admin: 06/19/16 13:11 Dose: Not Given Oxycodone HCl (Oxycodone Immediate Release Tab) 30 mg PO Q4H PRN PRN Reason: Pain, moderate (4-7) Last Admin: 06/20/16 10:30 Dose: 30 mg Rosuvastatin Calcium (Crestor) 40 mg PO HS [facility] Last Admin: 06/19/16 21:51 Dose: 40 mg Sitagliptin Phosphate (Januvia) 25 mg PO DAILY [facility] Last Admin: 06/19/16 10:23 Dose: 25 mg Assessment and Plan - Assessment and Plan (Free Text) Assessment: A/P 51 yr old female admitted for chest pain troponin x 2 - negative . no ekg - changes from previous EKG vss- stable d/w Dr. Amor, stable for discharge home today and f/u with Dr. Amor office in 3-5 days Discharge plan discussed with patient , who understands and agree with plan Pt instructed to returns to ED if symptoms returns or any other concerning symptoms Pt denied the needs for any RX
--- NOTE | 2016-06-20 12:08 | PCM.HF ---
Heart Failure Core Measure - Heart Failure Ejection Fraction: 40 % or Greater JEANNE Inhibitor Prescribed: Yes Beta-Rian Prescribed: Carvedilol Angiotensin II Receptor Rian Prescribed: No Contraindication/Reason for not providing: on jeanne AnticoagulationTherapy for Atrial Fibrillation/Atrialflutter: Yes Aldosterone Antagonist Prescribed: No Contraindication/Reason for not providing: ef>45 Hydralazine Nitrate Prescribed: No Contraindication/Reason for not providing: ef>45 Implantable Cardioverter Defibrillator Therapy: No Contraindication/Reason for not providing: pt has AICD Cardiac Resynchronization Therapy Prescribed: No Contraindication/Reason for not providing: pt has AICD - Follow up Will be discharged to: Home Follow Up Date (must be within 7 days from discharge): 06/24/16 Follow Up Time: 09:00
--- NOTE | 2016-06-21 13:35 | CP.PCM.DIS ---
Provider - Provider Date of Admission: 06/18/16 23:19 Attending physician: Ousmane Amor MD Time Spent in preparation of Discharge (in minutes): 30 Diagnosis - Discharge Diagnosis (1) Chest pain Status: Acute (2) Diabetes mellitus Status: Acute (3) Chronic pain syndrome Status: Acute (4) CHF exacerbation Status: Acute (5) Low back pain Status: Acute (6) Wrist pain, acute Status: Acute Hospital Course - Lab Results Lab Results: Most Recent Lab Values WBC 10.8 K/uL (4.8-10.8) D 06/18/16 21: RBC 4.19 Mil/uL (4.40-5.90) L 06/18/16 21: Hgb 10.3 g/dL (12.0-18.0) L 06/18/16 21: Hct 33.1 % (35.0-51.0) L 06/18/16 21: MCV 78.9 fL (80.0-94.0) L 06/18/16 21: MCH 24.5 pg (27.0-31.0) L 06/18/16 21: MCHC 31.0 g/dL (33.0-37.0) L 06/18/16 21: RDW 17.1 % (11.5-14.5) H 06/18/16 21: Plt Count 214 K/uL (130-400) 06/18/16 21: MPV 8.7 fL (7.2-11.7) 06/18/16 21: Neut % (Auto) 74.3 % (50.0-75.0) 06/18/16 21: Lymph % (Auto) 16.6 % (20.0-40.0) L 06/18/16 21: [place] % (Auto) 7.5 % (0.0-10.0) 06/18/16 21: Eos % (Auto) 1.0 % (0.0-4.0) 06/18/16 21: Baso % (Auto) 0.6 % (0.0-2.0) 06/18/16 21: Neut # 8.0 K/uL (1.8-7.0) H 06/18/16 21: Lymph # 1.8 K/uL (1.0-4.3) 06/18/16 21:27 [place] # 0.8 K/uL (0.0-0.8) 06/18/16 21:27 Eos # 0.1 K/uL (0.0-0.7) 06/18/16 21:27 Baso # 0.1 K/uL (0.0-0.2) 06/18/16 21:27 Sodium 140 mmol/L (132-148) 06/18/16 21:27 Potassium 4.2 mmol/L (3.6-5.2) 06/18/16 21: Chloride 100 mmol/L (98-107) 06/18/16 21: Carbon Dioxide 28 mmol/L (22-30) 06/18/16 21:27 Anion Gap 17 (10-20) 06/18/16 21:27 BUN 36 mg/dL (9-20) H 06/18/16 21:27 Creatinine 1.3 MG/DL (0.8-1.5) 06/18/16 21:27 Est GFR ( Amer) > 60 06/18/16 21:27 Est GFR (Non-Af Amer) 59 06/18/16 21:27 POC Glucose (mg/dL) 286 mg/dL (65-110) H 06/20/16 08:59 Random Glucose 183 mg/dL (75-110) H 06/18/16 21:27 Calcium 8.3 mg/dl (8.6-10.4) L 06/18/16 21: Total Bilirubin 0.3 mg/dL (0.2-1.3) 06/18/16 21:27 AST 14 U/L (17-59) L 06/18/16 21:27 ALT 15 U/L (21-72) L D 06/18/16 21:27 Alkaline Phosphatase 96 U/L (38-126) 06/18/16 21: Total Creatine Kinase 41 U/L (55-170) L 06/19/16 08:41 CK-MB (Mass) 0.45 ng/mL (0.0-3.38) 06/19/16 08:41 Troponin I < 0.0120 ng/mL (0.00-0.120) 06/18/16 21:27 Troponin I, Quant < 0.0120 ng/mL (0.00-0.120) 06/19/16 08:41 Total Protein 7.3 g/dL (6.3-8.3) 06/18/16 21:27 Albumin 3.7 g/dL (3.5-5.0) 06/18/16 21:27 Globulin 3.6 gm/dL (2.2-3.9) 06/18/16 21:27 Albumin/Globulin Ratio 1.0 (1.0-2.1) 06/18/16 21:27 - Hospital Course Hospital Course: Pt seen & examined, who was admitted for chest pain states chest pain resolved , LE edema improved , denies any sob , palpitations, dizziness , he is for discharge today No overnight events recorded on monitor No events reported by RN Troponin x 3 negative Ekg-x 2 , No ST- t wave changes , No changes from previous EKG Discharge Exam - Eye Exam Eye Exam: EOMI, Normal appearance, PERRL Pupil Exam: NORMAL ACCOMODATION, PERRL - ENT Exam ENT Exam: Mucous Membranes Moist - Respiratory Exam Respiratory Exam: Clear to PA & Lateral - Cardiovascular Exam Cardiovascular Exam: REGULAR RHYTHM, +S1, +S2 - GI/Abdominal Exam GI & Abdominal Exam: Normal Bowel Sounds Discharge Plan - Follow Up Plan Condition: GOOD Disposition: HOME/ ROUTINE Instructions: Heart Failure (DC), Chest Pain (DC), Heart Healthy Diet (DC) Additional Instructions: f/u with Dr. Amor office in 3-5 days continue medication as per Med. Rec. Referrals: Ousmane Amor MD [Staff Provider] -
--- NOTE | 2016-06-30 23:24 | CARD ---
APPROVED REPORT EKG Measurement Heart [id number] NM 156P83 [id number] <Conclusion> Poor data quality, interpretation may be adversely affected Atrial-sensed ventricular-paced rhythm Abnormal ECG
== END 2016-06-20 13:46 | disposition home or self-care (01) ==
LOC: C.ER 20:33 → INTOOBSV 23:19 → C.9E 23:19 → C.9I 06-19 00:02 → C.6T 06-19 18:33
PROVIDERS: ADMIT Internal Medicine; ATTEND Internal Medicine
DX: I11.0 Hypertensive heart disease with heart failure (principal); I50.9 Heart failure, unspecified; E11.9 Type 2 diabetes mellitus without complications; E66.01 Morbid (severe) obesity due to excess calories; E78.5 Hyperlipidemia, unspecified; G47.30 Sleep apnea, unspecified; G89.4 Chronic pain syndrome; M32.9 Systemic lupus erythematosus, unspecified; Z95.1 Presence of aortocoronary bypass graft; I25.10 Atherosclerotic heart disease of native coronary artery without angina pectoris; Z68.42 Body mass index [BMI] 45.0-49.9, adult; Z95.0 Presence of cardiac pacemaker; M54.5 Low back pain
CPT/HCPCS: 71010; 80053; 82948; 84484; 85025; 93005; 94660; 99285; G0378; J1940; J2920

== ENCOUNTER 2016-07-04 00:29 | Observation (INO) | payer MEDICARE, OTHER ==
[2016-07-04 00:29] VITALS: BMI 46.0
--- NOTE | 2016-07-04 01:00 | C.PDOC ---
History Of Present Illness patient presents with some chest discomfort and shortness of breath over the last few days, but worse tonight. No f/c/n/v. Speaking in complete sentences Time Seen by Provider: 07/04/16 01:00 Chief Complaint (Nursing): Chest Pain History/Exam Limitations: no limitations Onset/Duration Of Symptoms: Days Current Symptoms Are (Timing): Still Present Context: Other Severity: Moderate Pain Scale Rating Of: 4 Quality: Dull Associated Symptoms: Dyspnea Exacerbating Factors: Exertion Alleviating Factors: None Recent travel outside of the [place]: No Additional History Per: Patient Past Medical History Vital Signs: Last Vital Signs Temp 98.6 F 07/04/16 00:39 Pulse 87 07/04/16 00:39 Resp 18 07/04/16 00:39 BP 132/70 07/04/16 01:02 Pulse Ox 97 07/04/16 02:26 - Medical History PMH: Anxiety, Atrial Fibrillation, Back Problems, CAD, CHF, COPD, Diabetes, Deep Vein Thrombosis, Emphysema, Graves' Disease, HTN, Peripheral Edema, Pneumonia, Sleep Apnea, TIA (Hx of Strokes-2008) Denies: Hypothyroidism, Chronic Kidney Disease Surgical History: CABG (2008), Coronary Stent (3 Stents Prior to Quadruple Bypass), Pacemaker (left upper chest) - [facility] Procedures ASSISTANCE WITH RESPIRATORY VENTILATION, 24-96 HRS, CPAP (10/15/15) INJECT/INFUSE NEC (10/09/12) Family History: States: No Known Family Hx - Social History Hx Tobacco Use: Yes Hx Alcohol Use: No Hx Substance Use: No - Immunization History Hx Tetanus Toxoid Vaccination: Yes Hx Influenza Vaccination: Yes Hx Pneumococcal Vaccination: Yes Review Of Systems Constitutional: Negative for: Fever, Chills ENT: Negative for: Throat Pain Cardiovascular: Positive for: Chest Pain, Orthopnea, Paroxysmal Noc. Dyspnea, Edema. Negative for: Palpitations Respiratory: Positive for: Shortness of Breath Gastrointestinal: Negative for: Nausea, Vomiting, Abdominal Pain Genitourinary: Negative for: Dysuria Musculoskeletal: Negative for: Back Pain Skin: Negative for: Jaundice Neurological: Negative for: Weakness Psych: Negative for: Anxiety Physical Exam - Physical Exam Appears: Non-toxic Skin: Warm, Dry Head: Normacephalic Eye(s): bilateral: Normal Inspection Oral Mucosa: Moist Neck: Supple Chest: Symmetrical, Other (pacer on left) Cardiovascular: Rhythm Regular Respiratory: Decreased Breath Sounds, No Rales, Rhonchi (bases few), No Wheezing Gastrointestinal/Abdominal: Soft, Other (morbidly obese) Back: Normal Inspection Extremity: Pedal Edema (tense, chronic) Extremity: Bilateral: Limited ROM To Joint (due to morbid obesity) Neurological/Psych: Oriented x3, Normal Speech, Normal Cognition Gait: With Assistance ED Course And Treatment - Laboratory Results Result Diagrams: 07/04/16 02:44 07/04/16 02:44 ECG: Interpreted By Me, Viewed By Me ECG Rhythm: Sinus Rhythm (84), Nonspecific Changes (atrial sensed, ventricular paced) O2 Sat by Pulse Oximetry: 97 Pulse Ox Interpretation: Normal - Radiology CXR: Interpreted by Me, Viewed By Me CXR Interpretation: Yes: Cardiomegaly, Other (pacer left, vasc congestion , unchanged from 06/18/16) Disposition Discussed With : Ousmane Amor Comment: accepted the pt on his service and took over the care at 3:43 AM Doctor Will See Patient In The: Hospital Counseled Patient/Family Regarding: Studies Performed, Diagnosis - Disposition Disposition: HOSPITALIZED Disposition Time: 01:00 Condition: FAIR - POA Present On Arrival: Poor Glycemic Control - Clinical Impression Clinical Impression: Chest pain, Dyspnea, CHF (congestive heart failure) Decision To Admit - Pt Status Changed To: Hospital Disposition Of: Observation - . Bed Request Type: Telemetry Admitting Physician: Ousmane Amor Patient Diagnosis: Chest pain, Dyspnea, CHF (congestive heart failure)
[2016-07-04] MEDS ORDERED: Aspirin 325 mg EC Tablets PO STA (01:19)
[2016-07-04] MEDS ORDERED: Aspirin 325 mg EC Tablets PO ONE (01:29)
[2016-07-04 02:49] LABS: BASO # 0.1 K/uL (0.0-0.2); BASO % 0.6 % (0.0-2.0); EOS % 0.3 % (0.0-4.0); HEMATOCRIT 32.3 % (35.0-51.0); LYMPH # 1.1 K/uL (1.0-4.3); LYMPH % 12.5 % (20.0-40.0); MEAN CELL VOLUME 78.5 fL (80.0-94.0); MEAN CORPUSCULAR HEMOGLOBIN 23.9 pg (27.0-31.0); MEAN CORPUSCULAR HGB CONC 30.4 g/dL (33.0-37.0); MEAN PLATELET VOLUME 8.6 fL (7.2-11.7); MONO # 0.3 K/uL (0.0-0.8); MONO % 2.9 % (0.0-10.0); RED CELL DISTRIBUTION WIDTH 16.9 % (11.5-14.5); WHITE BLOOD COUNT 8.7 K/uL (4.8-10.8)
[2016-07-04 02:55] LABS: CHLORIDE 101 mmol/L (98-107); SODIUM 139 mmol/L (132-148)
[2016-07-04 02:56] LABS: POTASSIUM 3.8 mmol/L (3.6-5.2)
[2016-07-04 02:57] LABS: INR 2.8
[2016-07-04 02:58] LABS: ALB/GLOB RATIO 0.9 (1.0-2.1); ALKALINE PHOSPHATASE 161 U/L (38-126); ALT/SGPT 22 U/L (21-72); AST/SGOT 16 U/L (17-59); BILIRUBIN,TOTAL 0.5 mg/dL (0.2-1.3); BLOOD UREA NITROGEN 29 mg/dL (9-20); CARBON DIOXIDE 28 mmol/L (22-30); GFR AFRICAN-AMERICAN > 60; GLUCOSE,RANDOM 301 mg/dL (75-110); TOTAL PROTEIN 6.7 g/dL (6.3-8.3)
[2016-07-04 02:59] LABS: CALCIUM 7.8 mg/dl (8.6-10.4)
[2016-07-04] MEDS ORDERED: Levothyroxine 100 MCG TAB PO SCH (06:30)
[2016-07-04] MEDS: (Novolog) Insulin Aspart, Recombinant 100 u/ml 10 ml vial SC SCH ×4 (08:23→21:42)
[2016-07-04] MEDS: oxyCODONE 30 mg Immediate Release Tab PO PRN ×3 (08:23→19:00)
--- NOTE | 2016-07-04 08:23 | RAD ---
PROCEDURE: CHEST RADIOGRAPH, 1 VIEW HISTORY: chest pain COMPARISON: Comparison is made to the previous study dated 06/18/2016 FINDINGS: LUNGS: Moderate pulmonary vascular congestion is noted. PLEURA: Blunting of the costophrenic angle on the right is also noted. CARDIOVASCULAR: The cardiac silhouette is enlarged. Left-sided pacemaker is again seen in place. OSSEOUS STRUCTURES: No significant abnormalities. VISUALIZED UPPER ABDOMEN: Normal. OTHER FINDINGS: Right-sided Infusaport is also seen at appropriate position. IMPRESSION: Pulmonary vascular congestion and cardiomegaly suspicious for CHF.
[2016-07-04] MEDS: Levothyroxine 100 MCG TAB PO SCH (10:23)
[2016-07-04] MEDS ORDERED: Digoxin 125 mcg (0.125 mg) Tab PO SCH (18:00)
[2016-07-04 19:07] VITALS: PULSE 90
--- NOTE | 2016-07-04 22:59 | CP.PCM.HP ---
History of Present Illness - History of Present Illness History of Present Illness: cheif complain: Chest pain HPI: middle age morbidly AA male with h/o HTN,DM, Hyperlipidemia, CAD s/p CABG , multiple angioplasties, sleep apnea on BIPAP at home, who developed left chest wall sharp pain yesterday while cooking in kitchen, pain does not respond to his home medications and he came to ER, he c/o dry cough, nasal congestion and wheezing too Present on Admission - Present on Admission Any Indicators Present on Admission: No Review of Systems - Review of Systems Systems not reviewed;Unavailable: Acuity of Condition - Constitutional Constitutional: Fatigue, Lethargy, Malaise, Snoring, Sleep Apnea - EENT Eyes: absent: As Per HPI, Blind Spots, Blurred Vision, Change in Vision, Decreased Night Vision, Diplopia, Discharge, Dry Eye, Exophthalmos, Floaters, Irritation, Itchy Eyes, Loss of Peripheral Vision, Pain, Photophobia, Requires Corrective Lenses, Sees Flashes, Spots in Vision, Tunnel Vision, Other Visual Disturbances, Loss of Vision, Other Ears: absent: As Per HPI, Decreased Hearing, Ear Discharge, Ear Pain, Tinnitus, Disequilibrium, Dizziness, Other Nose/Mouth/Throat: Nasal Congestion - Cardiovascular Cardiovascular: Chest Pain, Dyspnea - Respiratory Respiratory: Cough, Dyspnea - Gastrointestinal Gastrointestinal: absent: As Per HPI, Abdominal Pain, Belching, Bloating, Change in Bowel Habits, Change in Stool Character, Coffee Ground Emesis, Constipation, Cramping, Diarrhea, Dyspepsia, Dysphagia, Early Satiety, Excessive Flatus, Fecal Incontinence, Heartburn, Hematemesis, Hematochezia, Loose Stools, Melena, Nausea, Odynophagia, Temesmus, Vomiting, Other Past Patient History - Infectious Disease Hx of Infectious Diseases: None - Past Medical History & Family History Past Medical History?: Yes - Past Social History Smoking Status: Light Smoker < 10 Cigarettes Daily - CARDIAC Hx Atrial Fibrillation: Yes Hx Congestive Heart Failure: Yes Hx Hypertension: Yes Hx Pacemaker: Yes (left upper chest) Hx Peripheral Edema: Yes - PULMONARY Hx Chronic Obstructive Pulmonary Disease (COPD): Yes Hx Emphysema: Yes Hx Pneumonia: Yes Hx Sleep Apnea: Yes - NEUROLOGICAL Hx Transient Ischemic Attacks (TIA): Yes (Hx of Strokes-2009) - HEENT Hx HEENT Problems: No - RENAL Hx Chronic Kidney Disease: No - ENDOCRINE/METABOLIC Hx Hypothyroidism: No - HEMATOLOGICAL/ONCOLOGICAL Hx Blood Disorders: No Hx Blood Transfusions: No - INTEGUMENTARY Hx Dermatological Problems: No - MUSCULOSKELETAL/RHEUMATOLOGICAL Hx Falls: No (denies) - GASTROINTESTINAL Hx Gastrointestinal Disorders: No - GENITOURINARY/GYNECOLOGICAL Hx Genitourinary Disorders: No - PSYCHIATRIC Hx Substance Use: No - SURGICAL HISTORY Hx Coronary Artery Bypass Graft: Yes (2008) Hx Coronary Stent: Yes (3 Stents Prior to Quadruple Bypass) Other/Comment: patient refused to answer any information stated " in the chart. " - ANESTHESIA Hx Anesthesia: Yes Hx Anesthesia Reactions: No Hx Malignant Hyperthermia: No Meds Allergies/Adverse Reactions: Allergies Allergy/AdvReac Type Severity Reaction Status Date / Time No Known Drug Allergies Allergy n/a Verified 07/04/16 00:48 Physical Exam - Constitutional Appears: No Acute Distress - Eye Exam Eye Exam: EOMI, Normal appearance, PERRL Pupil Exam: NORMAL ACCOMODATION, PERRL Additional comments: positive pallor, neg jaundice - ENT Exam ENT Exam: Mucous Membranes Moist, Normal Exam - Respiratory Exam Respiratory Exam: Decreased Breath Sounds, Rales, Rhonchi - Cardiovascular Exam Cardiovascular Exam: REGULAR RHYTHM - GI/Abdominal Exam GI & Abdominal Exam: Normal Bowel Sounds, Soft. absent: Tenderness Results - Vital Signs Recent Vital Signs: Last Vital Signs Temp 98 F 07/04/16 07:10 Pulse 76 07/04/16 12:00 Resp 18 07/04/16 07:10 BP 154/102 H 07/04/16 19:00 Pulse Ox 97 07/04/16 07:10 - Labs Result Diagrams: 07/04/16 02:44 07/04/16 02:44 Labs: Laboratory Results - last 24 hr 07/04/16 07/04/16 07/04/16 06:26 11:13 11:13 POC Glucose (mg/dL) 259 H Total Creatine Kinase 71 CK-MB (Mass) 0.82 Troponin I, Quant 0.0140 Digoxin 0.7 L 07/04/16 21:13 POC Glucose (mg/dL) 199 H Total Creatine Kinase CK-MB (Mass) Troponin I, Quant Digoxin Assessment & Plan (1) CHF (congestive heart failure) Status: Acute (2) Chest pain Status: Acute (3) Dyspnea Status: Acute (4) Hypertensive heart disease Status: Active (5) Hypothyroidism Status: Active (6) AICD (automatic cardioverter/defibrillator) present Status: Acute (7) Anemia Status: Acute (8) CHF exacerbation Status: Acute
[2016-07-05] MEDS: oxyCODONE 30 mg Immediate Release Tab PO PRN ×4 (00:19→12:54)
[2016-07-05 00:27] VITALS: RESP 20
[2016-07-05] MEDS: Levothyroxine 100 MCG TAB PO SCH (05:49)
[2016-07-05 08:12] VITALS: TEMP 99; O2SAT 97
[2016-07-05] MEDS: (Novolog) Insulin Aspart, Recombinant 100 u/ml 10 ml vial SC SCH ×2 (08:39→12:57)
[2016-07-05 11:33] VITALS: BP 170/117
[2016-07-05 14:36] VITALS: PULSE 74
--- NOTE | 2016-07-05 17:09 | PCM.HF ---
Heart Failure Core Measure - Heart Failure Ejection Fraction: 40 % or Greater JEANEN Inhibitor Prescribed: Yes Beta-Rian Prescribed: Carvedilol Angiotensin II Receptor Rian Prescribed: No Contraindication/Reason for not providing: on jaenne AnticoagulationTherapy for Atrial Fibrillation/Atrialflutter: Yes Aldosterone Antagonist Prescribed: No Contraindication/Reason for not providing: EF>40% Hydralazine Nitrate Prescribed: No Contraindication/Reason for not providing: EF>40% Implantable Cardioverter Defibrillator Therapy: Yes Cardiac Resynchronization Therapy Prescribed: No Contraindication/Reason for not providing: has pacemaker - Follow up Will be discharged to: Home Follow Up Date (must be within 7 days from discharge): 07/07/16 Follow Up Time: 09:00
--- NOTE | 2016-07-05 17:16 | CP.PCM.PN ---
Subjective - Date & Time of Evaluation Date of Evaluation: 07/05/16 Time of Evaluation: 11:00 - Subjective Subjective: Alert, ambulating, NAD. Objective - Vital Signs/Intake and Output Vital Signs (last 24 hours): Temp Pulse Resp BP Pulse Ox 99.0 F 74 20 170/117 H 97 07/05/16 07:10 07/05/16 10:00 07/05/16 07:10 07/05/16 11:16 07/05/16 07:10 Intake and Output: 07/05/16 07/05/16 06:59 18:59 Intake Total 320 500 Output Total 750 Balance 320 -250 - Labs Labs: PT 32.4 SECONDS (9.7-12.2) H* 07/04/16 02:44 INR 2.8 07/04/16 02:44 APTT 39 SECONDS (21-34) H 07/04/16 02:44 Assessment and Plan - Assessment and Plan (Free Text) Assessment: Patient is seen ambulating in the hallway. Alert and orientedx3, has sob with exertion. Very noncompliant with medications and food. D/W DR Amor, plan to discharge home today on previous meds. Advised to follow up in the office in 1 week.
--- NOTE | 2016-07-05 23:06 | CP.PCM.DIS ---
Provider - Provider Date of Admission: 07/04/16 03:42 Attending physician: Ousmane Amor MD Time Spent in preparation of Discharge (in minutes): 30 Diagnosis - Discharge Diagnosis (1) CHF (congestive heart failure) Status: Acute (2) Chest pain Status: Acute (3) Dyspnea Status: Acute (4) Hypertensive heart disease Status: Active (5) Hypothyroidism Status: Active (6) AICD (automatic cardioverter/defibrillator) present Status: Acute (7) Anemia Status: Acute (8) CHF exacerbation Status: Acute Hospital Course - Lab Results Lab Results: Most Recent Lab Values WBC 8.7 K/uL (4.8-10.8) 07/04/16 02:44 RBC 4.11 Mil/uL (4.40-5.90) L 07/04/16 02:44 Hgb 9.8 g/dL (12.0-18.0) L 07/04/16 02:44 Hct 32.3 % (35.0-51.0) L 07/04/16 02:44 MCV 78.5 fL (80.0-94.0) L 07/04/16 02:44 MCH 23.9 pg (27.0-31.0) L 07/04/16 02:44 MCHC 30.4 g/dL (33.0-37.0) L 07/04/16 02:44 RDW 16.9 % (11.5-14.5) H 07/04/16 02:44 Plt Count 191 K/uL (130-400) 07/04/16 02:44 MPV 8.6 fL (7.2-11.7) 07/04/16 02:44 Neut % (Auto) 83.7 % (50.0-75.0) H 07/04/16 02:44 Lymph % (Auto) 12.5 % (20.0-40.0) L 07/04/16 02:44 Starr % (Auto) 2.9 % (0.0-10.0) 07/04/16 02:44 Eos % (Auto) 0.3 % (0.0-4.0) 07/04/16 02:44 Baso % (Auto) 0.6 % (0.0-2.0) 07/04/16 02:44 Neut # 7.3 K/uL (1.8-7.0) H 07/04/16 02:44 Lymph # 1.1 K/uL (1.0-4.3) 07/04/16 02:44 Starr # 0.3 K/uL (0.0-0.8) 07/04/16 02:44 Eos # 0.0 K/uL (0.0-0.7) 07/04/16 02:44 Baso # 0.1 K/uL (0.0-0.2) 07/04/16 02:44 PT 32.4 SECONDS (9.7-12.2) H* 07/04/16 02:44 INR 2.8 07/04/16 02:44 APTT 39 SECONDS (21-34) H 07/04/16 02:44 Sodium 139 mmol/L (132-148) 07/04/16 02:44 Potassium 3.8 mmol/L (3.6-5.2) 07/04/16 02:44 Chloride 101 mmol/L (98-107) 07/04/16 02:44 Carbon Dioxide 28 mmol/L (22-30) 07/04/16 02:44 Anion Gap 14 (10-20) 07/04/16 02:44 BUN 29 mg/dL (9-20) H 07/04/16 02:44 Creatinine 0.8 MG/DL (0.8-1.5) 07/04/16 02:44 Est GFR ( Amer) > 60 07/04/16 02:44 Est GFR (Non-Af Amer) > 60 07/04/16 02:44 POC Glucose (mg/dL) 213 mg/dL (65-110) H 07/05/16 11:36 Random Glucose 301 mg/dL (75-110) H 07/04/16 02:44 Calcium 7.8 mg/dl (8.6-10.4) L 07/04/16 02:44 Total Bilirubin 0.5 mg/dL (0.2-1.3) 07/04/16 02:44 AST 16 U/L (17-59) L 07/04/16 02:44 ALT 22 U/L (21-72) 07/04/16 02:44 Alkaline Phosphatase 161 U/L (38-126) H D 07/04/16 02:44 Total Creatine Kinase 71 U/L (55-170) 07/04/16 11:13 CK-MB (Mass) 0.82 ng/mL (0.0-3.38) 07/04/16 11:13 Troponin I < 0.0120 ng/mL (0.00-0.120) 07/04/16 02:44 Troponin I, Quant 0.0140 ng/mL (0.00-0.120) 07/04/16 11:13 NT-Pro-B Natriuret Pep 1410 pg/mL (0-450) H 07/04/16 02:44 Total Protein 6.7 g/dL (6.3-8.3) 07/04/16 02:44 Albumin 3.2 g/dL (3.5-5.0) L 07/04/16 02:44 Globulin 3.4 gm/dL (2.2-3.9) 07/04/16 02:44 Albumin/Globulin Ratio 0.9 (1.0-2.1) L 07/04/16 02:44 Digoxin 0.7 ng/mL (0.8-2.0) L 07/04/16 11:13 - Hospital Course Hospital Course: Pt seen & examined, is feeling better, chest pain resolved work up is negative, pt is for discharge to home Discharge Exam - Eye Exam Eye Exam: EOMI, Normal appearance, PERRL Pupil Exam: NORMAL ACCOMODATION, PERRL - ENT Exam ENT Exam: Mucous Membranes Moist - Respiratory Exam Respiratory Exam: Clear to PA & Lateral - Cardiovascular Exam Cardiovascular Exam: +S1, +S2 - GI/Abdominal Exam GI & Abdominal Exam: Normal Bowel Sounds Discharge Plan - Follow Up Plan Condition: FAIR Disposition: HOME/ ROUTINE
--- NOTE | 2016-07-06 17:10 | CARD ---
APPROVED REPORT EKG Measurement Heart [id number] <Conclusion> Atrial-sensed ventricular-paced rhythm Abnormal ECG
== END 2016-07-05 15:00 | disposition home or self-care (01) ==
LOC: C.ER 00:29 → C.6T 03:42
PROVIDERS: ADMIT Internal Medicine; ATTEND Internal Medicine
DX: I11.0 Hypertensive heart disease with heart failure (principal); Z95.810 Presence of automatic (implantable) cardiac defibrillator; I50.9 Heart failure, unspecified; I25.10 Atherosclerotic heart disease of native coronary artery without angina pectoris; G47.30 Sleep apnea, unspecified; E78.5 Hyperlipidemia, unspecified; E11.9 Type 2 diabetes mellitus without complications; E03.9 Hypothyroidism, unspecified; D64.9 Anemia, unspecified; Z68.42 Body mass index [BMI] 45.0-49.9, adult
CPT/HCPCS: 71010; 80053; 80162; 82948; 83880; 84484; 85025; 85610; 85730; 93005; 94660; 99285; G0378; J1940

== ENCOUNTER 2016-07-22 23:37 | Observation (INO) | payer MEDICARE, OTHER ==
[2016-07-22 23:37] VITALS: PULSE 90; BMI 46.0
[2016-07-22 23:59] VITALS: RESP 20
[2016-07-23] MEDS ORDERED: Aspirin 325 mg EC Tablets PO STA (00:14)
--- NOTE | 2016-07-23 00:14 | C.PDOC ---
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 Also complaining of purulent material right eye, swollen left cheek and some leg pain. SORIANO, speaking in complete sentences. NO f/c/n/v Time Seen by Provider: 07/23/16 00:14 Chief Complaint (Nursing): Chest Pain History Per: Patient History/Exam Limitations: no limitations Onset/Duration Of Symptoms: Hrs Current Symptoms Are (Timing): Still Present Context: Other Severity: Moderate Pain Scale Rating Of: 4 Quality: Dull, Aching Associated Symptoms: Dyspnea. denies: Nausea Exacerbating Factors: Exertion Alleviating Factors: None Recent travel outside of the [place]: No Additional History Per: Patient Past Medical History Reviewed: Historical Data, Nursing Documentation, Vital Signs Vital Signs: Last Vital Signs Temp 98.5 F 07/22/16 23:59 Pulse 95 H 07/22/16 23:59 Resp 20 07/22/16 23:59 BP 101/64 07/22/16 23:59 Pulse Ox 96 07/23/16 03:32 - Medical History PMH: Anxiety, Atrial Fibrillation, Back Problems, CAD, CHF, COPD, Diabetes, Deep Vein Thrombosis, Emphysema, Graves' Disease, HTN, Peripheral Edema, Pneumonia, Sleep Apnea, TIA (Hx of Strokes-2008) Denies: Hypothyroidism, Chronic Kidney Disease Surgical History: CABG (2008), Coronary Stent (3 Stents Prior to Quadruple Bypass), Pacemaker (left upper chest) - [facility] Procedures ASSISTANCE WITH RESPIRATORY VENTILATION, 24-96 HRS, CPAP (10/15/15) INJECT/INFUSE NEC (10/09/12) Family History: States: No Known Family Hx - Social History Hx Tobacco Use: Yes Hx Alcohol Use: No Hx Substance Use: No - Immunization History Hx Tetanus Toxoid Vaccination: Yes Hx Influenza Vaccination: Yes Hx Pneumococcal Vaccination: Yes Review Of Systems Constitutional: Negative for: Fever, Chills Eyes: Positive for: Conjunctivae Inflammation, Redness ENT: Positive for: Mouth Pain Cardiovascular: Positive for: Chest Pain, Orthopnea, Edema. Negative for: Palpitations Respiratory: Positive for: Shortness of Breath Gastrointestinal: Negative for: Nausea, Vomiting, Abdominal Pain Genitourinary: Negative for: Dysuria Musculoskeletal: Negative for: Back Pain Skin: Positive for: Lesions (b/l legs) Neurological: Negative for: Dizziness Psych: Negative for: Anxiety Physical Exam - Physical Exam Appears: Non-toxic Skin: Warm, Dry, Other (b/l venous stasis skin changes) Head: Normacephalic Eye(s): right: Other (conjunctivitis) Oral Mucosa: Moist Gingiva: Swelling, Tender, Other (poss abscess left upper gingiva) Throat: No Erythema Neck: Supple Chest: Symmetrical, Other (pacer on left) Cardiovascular: Rhythm Regular, Edema Respiratory: Decreased Breath Sounds (due to bady habitus), Rales (few at bases) Gastrointestinal/Abdominal: Soft, No Tenderness, Distention (obese) Back: Normal Inspection Extremity: Pedal Edema Extremity: Bilateral: Painful To Bear Weight (due to weight) Neurological/Psych: Oriented x3, Normal Speech, Normal Cognition Gait: Steady ED Course And Treatment - Laboratory Results Result Diagrams: 07/23/16 01:31 07/23/16 01:31 ECG: Interpreted By Me, Viewed By Me ECG Rhythm: Sinus Rhythm (90), Nonspecific Changes (atrial sensed, ventricular paced., occ pvcs) O2 Sat by Pulse Oximetry: 96 Pulse Ox Interpretation: Normal - Radiology CXR: Interpreted by Me, Viewed By Me CXR Interpretation: Yes: Cardiomegaly, Other (pacer left, mild vasc congestion) Disposition Discussed With : Ousmane Amor Comment: accepted the pt on his service and took over the care at 3:30 AM Counseled Patient/Family Regarding: Studies Performed, Diagnosis - Disposition Disposition: HOSPITALIZED Disposition Time: 00:14 Condition: FAIR - POA Present On Arrival: Poor Glycemic Control - Clinical Impression Clinical Impression: Chest pain, Morbid obesity with BMI of 45.0-49.9, adult, Dyspnea, Pain, dental , Facial cellulitis
[2016-07-23] MEDS ORDERED: Piperacillin/Tazobact 3.375 gm 100 ML IVPB STA (00:27)
[2016-07-23] MEDS ORDERED: Aspirin 325 mg EC Tablets PO ONE (00:29)
[2016-07-23 01:34] LABS: BASO # 0.1 K/uL (0.0-0.2); BASO % 0.7 % (0.0-2.0); EOS # 0.1 K/uL (0.0-0.7); EOS % 1.2 % (0.0-4.0); HEMATOCRIT 33.3 % (35.0-51.0); LYMPH # 1.4 K/uL (1.0-4.3); LYMPH % 12.4 % (20.0-40.0); MEAN CELL VOLUME 77.6 fL (80.0-94.0); MEAN CORPUSCULAR HEMOGLOBIN 23.9 pg (27.0-31.0); MEAN CORPUSCULAR HGB CONC 30.8 g/dL (33.0-37.0); MEAN PLATELET VOLUME 8.3 fL (7.2-11.7); MONO # 0.9 K/uL (0.0-0.8); MONO % 7.6 % (0.0-10.0); NRBC % 0.1 % (0.0-2.0); RED CELL DISTRIBUTION WIDTH 16.9 % (11.5-14.5); WHITE BLOOD COUNT 11.5 K/uL (4.8-10.8)
[2016-07-23 01:37] LABS: VENOUS BLOOD GAS BASE EXCESS 0.8 mmol/L (0.0-2.0); VENOUS BLOOD GAS PCO2 62 mmHg (40-60); VENOUS BLOOD PH 7.28 (7.32-7.43)
[2016-07-23 01:44] LABS: CHLORIDE 99 mmol/L (98-107)
[2016-07-23 01:45] LABS: POTASSIUM 3.9 mmol/L (3.6-5.2); SODIUM 136 mmol/L (132-148)
[2016-07-23 01:46] LABS: INR 1.9
[2016-07-23 01:47] LABS: ALB/GLOB RATIO 0.8 (1.0-2.1); ALKALINE PHOSPHATASE 109 U/L (38-126); AST/SGOT 15 U/L (17-59); BILIRUBIN,TOTAL 0.5 mg/dL (0.2-1.3); BLOOD UREA NITROGEN 34 mg/dL (9-20); CARBON DIOXIDE 25 mmol/L (22-30); GFR AFRICAN-AMERICAN > 60; GLUCOSE,RANDOM 283 mg/dL (75-110); TOTAL PROTEIN 6.9 g/dL (6.3-8.3)
[2016-07-23 01:48] LABS: ALT/SGPT 20 U/L (21-72); CALCIUM 8.3 mg/dl (8.6-10.4)
[2016-07-23] MEDS ORDERED: OXYCODONE 30 MG PO PRN (04:01)
[2016-07-23] MEDS ORDERED: Levothyroxine 100 MCG TAB PO SCH ×2 (06:30→10:00)
[2016-07-23] MEDS ORDERED: (Novolog) Insulin Aspart, Recombinant 100 u/ml 10 ml vial SC SCH (07:30)
[2016-07-23 08:06] VITALS: TEMP 97.8; O2SAT 97
--- NOTE | 2016-07-23 08:27 | RAD ---
PROCEDURE: CHEST RADIOGRAPH, 1 VIEW HISTORY: chest pain COMPARISON: 07/04/2016 FINDINGS: LUNGS: Moderate venous congestion. Lines and tubes stable position. PLEURA: No pneumothorax or pleural fluid seen. CARDIOVASCULAR: Cardiomegaly. Left-sided pacemaker. OSSEOUS STRUCTURES: No significant abnormalities. VISUALIZED UPPER ABDOMEN: Normal. OTHER FINDINGS: None. IMPRESSION: Moderate venous congestion. Lines and tubes stable position.
[2016-07-23] MEDS ORDERED: oxyCODONE 30 mg Immediate Release Tab PO PRN (09:00)
[2016-07-23 09:37] VITALS: BP 115/68
[2016-07-23 11:33] VITALS: PULSE 80
--- NOTE | 2016-07-23 13:51 | CP.PCM.HP ---
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 Also complaining of purulent material right eye, swollen left cheek and some leg pain. SORIANO, speaking in complete sentences. NO f/c/n/v Present on Admission - Present on Admission Any Indicators Present on Admission: No Past Patient History - Infectious Disease Hx of Infectious Diseases: None - Past Medical History & Family History Past Medical History?: Yes - Past Social History Smoking Status: Current Some Days Smoker - CARDIAC Hx Cardiac Disorders: Yes Hx Atrial Fibrillation: Yes Hx Congestive Heart Failure: Yes Hx Hypertension: Yes Hx Pacemaker: Yes (left upper chest) Hx Peripheral Edema: Yes - PULMONARY Hx Respiratory Disorders: Yes Hx Chronic Obstructive Pulmonary Disease (COPD): Yes Hx Emphysema: Yes Hx Pneumonia: Yes Hx Sleep Apnea: Yes - NEUROLOGICAL Hx Neurological Disorder: Yes Hx Transient Ischemic Attacks (TIA): Yes (Hx of Strokes-2008) - HEENT Hx HEENT Problems: No - RENAL Hx Chronic Kidney Disease: No - ENDOCRINE/METABOLIC Hx Hypothyroidism: No - HEMATOLOGICAL/ONCOLOGICAL Hx Blood Disorders: No Hx Blood Transfusions: No - INTEGUMENTARY Hx Dermatological Problems: No - MUSCULOSKELETAL/RHEUMATOLOGICAL Hx Falls: No (denies) - GASTROINTESTINAL Hx Gastrointestinal Disorders: No - GENITOURINARY/GYNECOLOGICAL Hx Genitourinary Disorders: No - PSYCHIATRIC Hx Anxiety: Yes Hx Substance Use: No - SURGICAL HISTORY Hx Surgeries: Yes Hx Coronary Artery Bypass Graft: Yes (2008) Hx Coronary Stent: Yes (3 Stents Prior to Quadruple Bypass) - ANESTHESIA Hx Anesthesia: Yes Hx Anesthesia Reactions: No Hx Malignant Hyperthermia: No Meds Allergies/Adverse Reactions: Allergies Allergy/AdvReac Type Severity Reaction Status Date / Time No Known Drug Allergies Allergy n/a Verified 07/04/16 00:48 Results - Vital Signs Recent Vital Signs: Last Vital Signs Temp 97.8 F 07/23/16 08:05 Pulse 80 07/23/16 11:31 Resp 20 07/23/16 08:05 BP 115/68 07/23/16 09:36 Pulse Ox 97 07/23/16 08:05 - Labs Result Diagrams: 07/23/16 01:31 07/23/16 01:31 Labs: Laboratory Results - last 24 hr 07/23/16 07/23/16 06:12 07:00 POC Glucose (mg/dL) 323 H Total Creatine Kinase 112 CK-MB (Mass) 0.49 Troponin I, Quant 0.0160
[2016-07-23] MEDS ORDERED: Digoxin 125 mcg (0.125 mg) Tab PO SCH (18:00)
--- NOTE | 2016-07-23 18:27 | CARD ---
APPROVED REPORT EKG Measurement Heart [id number] AR 160P55 [id number] <Conclusion> Atrial-sensed ventricular-paced rhythm with occasional premature ventricular complexes Abnormal ECG
--- NOTE | 2016-07-24 23:00 | CP.PCM.DIS ---
Provider - Provider Date of Admission: 07/23/16 03:29 Attending physician: Ousmane Amor MD Time Spent in preparation of Discharge (in minutes): 30 Diagnosis - Discharge Diagnosis (1) Atypical chest pain Status: Acute Hospital Course - Lab Results Lab Results: Most Recent Lab Values WBC 11.5 K/uL (4.8-10.8) H 07/23/16 01:31 RBC 4.29 Mil/uL (4.40-5.90) L 07/23/16 01:31 Hgb 10.2 g/dL (12.0-18.0) L 07/23/16 01:31 Hct 33.3 % (35.0-51.0) L 07/23/16 01:31 MCV 77.6 fL (80.0-94.0) L 07/23/16 01:31 MCH 23.9 pg (27.0-31.0) L 07/23/16 01:31 MCHC 30.8 g/dL (33.0-37.0) L 07/23/16 01:31 RDW 16.9 % (11.5-14.5) H 07/23/16 01:31 Plt Count 199 K/uL (130-400) 07/23/16 01:31 MPV 8.3 fL (7.2-11.7) 07/23/16 01:31 Neut % (Auto) 78.1 % (50.0-75.0) H 07/23/16 01:31 Lymph % (Auto) 12.4 % (20.0-40.0) L 07/23/16 01:31 Hockley % (Auto) 7.6 % (0.0-10.0) 07/23/16 01:31 Eos % (Auto) 1.2 % (0.0-4.0) 07/23/16 01:31 Baso % (Auto) 0.7 % (0.0-2.0) 07/23/16 01:31 Neut # 9.0 K/uL (1.8-7.0) H 07/23/16 01:31 Lymph # 1.4 K/uL (1.0-4.3) 07/23/16 01:31 [place]ockley # 0.9 K/uL (0.0-0.8) H 07/23/16 01:31 Eos # 0.1 K/uL (0.0-0.7) 07/23/16 01:31 Baso # 0.1 K/uL (0.0-0.2) 07/23/16 01:31 PT 21.7 SECONDS (9.7-12.2) H 07/23/16 01:31 INR 1.9 07/23/16 01:31 APTT 36 SECONDS (21-34) H 07/23/16 01:31 pO2 17 mm/Hg (30-55) L 07/23/16 01:34 VBG pH 7.28 (7.32-7.43) L 07/23/16 01:34 VBG pCO2 62 mmHg (40-60) H 07/23/16 01:34 VBG HCO3 23.4 mmol/L 07/23/16 01:34 VBG Total CO2 31.0 mmol/L (22-28) H 07/23/16 01:34 VBG O2 Sat (Calc) 27.9 % (40-65) L 07/23/16 01:34 VBG Base Excess 0.8 mmol/L (0.0-2.0) 07/23/16 01:34 VBG Potassium 3.6 mmol/L (3.6-5.2) 07/23/16 01:34 Sodium 138.0 mmol/l (132-148) 07/23/16 01:34 Chloride 101.0 mmol/L (98-107) 07/23/16 01:34 Glucose 274 mg/dl (75-110) H 07/23/16 01:34 Lactate 1.9 mmol/L (0.7-2.1) 07/23/16 01:34 Sodium 136 mmol/L (132-148) 07/23/16 01:31 Potassium 3.9 mmol/L (3.6-5.2) 07/23/16 01:31 Chloride 99 mmol/L (98-107) 07/23/16 01:31 Carbon Dioxide 25 mmol/L (22-30) 07/23/16 01:31 Anion Gap 16 (10-20) 07/23/16 01:31 BUN 34 mg/dL (9-20) H 07/23/16 01:31 Creatinine 1.2 MG/DL (0.8-1.5) 07/23/16 01:31 Est GFR ( Amer) > 60 07/23/16 01:31 Est GFR (Non-Af Amer) > 60 07/23/16 01:31 POC Glucose (mg/dL) 323 mg/dL (65-110) H 07/23/16 06:12 Random Glucose 283 mg/dL (75-110) H 07/23/16 01:31 Calcium 8.3 mg/dl (8.6-10.4) L 07/23/16 01:31 Total Bilirubin 0.5 mg/dL (0.2-1.3) 07/23/16 01:31 AST 15 U/L (17-59) L 07/23/16 01:31 ALT 20 U/L (21-72) L 07/23/16 01:31 Alkaline Phosphatase 109 U/L (38-126) 07/23/16 01:31 Total Creatine Kinase 112 U/L (55-170) 07/23/16 07:00 CK-MB (Mass) 0.49 ng/mL (0.0-3.38) 07/23/16 07:00 Troponin I 0.0190 ng/mL (0.00-0.120) 07/23/16 01:31 Troponin I, Quant 0.0160 ng/mL (0.00-0.120) 07/23/16 07:00 NT-Pro-B Natriuret Pep 606 pg/mL (0-450) H 07/23/16 02:43 Total Protein 6.9 g/dL (6.3-8.3) 07/23/16 01:31 Albumin 3.0 g/dL (3.5-5.0) L 07/23/16 01:31 Globulin 3.9 gm/dL (2.2-3.9) 07/23/16 01:31 Albumin/Globulin Ratio 0.8 (1.0-2.1) L 07/23/16 01:31 Venous Blood Potassium 3.6 mmol/L (3.6-5.2) 07/23/16 01:34 Discharge Exam - Head Exam Head Exam: ATRAUMATIC, NORMAL INSPECTION, NORMOCEPHALIC - Eye Exam Eye Exam: EOMI, Normal appearance, PERRL Pupil Exam: NORMAL ACCOMODATION, PERRL - ENT Exam ENT Exam: Mucous Membranes Moist - Respiratory Exam Respiratory Exam: Clear to PA & Lateral, NORMAL BREATHING PATTERN - Cardiovascular Exam Cardiovascular Exam: REGULAR RHYTHM, +S1, +S2 - GI/Abdominal Exam GI & Abdominal Exam: Normal Bowel Sounds - Rectal Exam Rectal Exam: Deferred Discharge Plan - Follow Up Plan Condition: FAIR Disposition: AGAINST MEDICAL ADVICE
--- NOTE | 2016-08-11 14:34 | CARD ---
APPROVED REPORT EKG Measurement Heart [id number] MS [id number] <Conclusion> Atrial-sensed ventricular-paced rhythm Abnormal ECG
== END 2016-07-23 14:43 | disposition left against medical advice (07) ==
LOC: C.ER 23:37 → INTOOBSV 07-23 03:29 → C.6T 07-23 03:29 → C.5T 07-23 08:25
PROVIDERS: ADMIT Internal Medicine; ATTEND Internal Medicine
DX: R07.89 Other chest pain (principal); E66.01 Morbid (severe) obesity due to excess calories; Z68.41 Body mass index [BMI] 40.0-44.9, adult; L03.211 Cellulitis of face; Z87.891 Personal history of nicotine dependence; J44.9 Chronic obstructive pulmonary disease, unspecified; I50.9 Heart failure, unspecified; I11.0 Hypertensive heart disease with heart failure; G47.30 Sleep apnea, unspecified; E11.9 Type 2 diabetes mellitus without complications
CPT/HCPCS: 36415; 71010; 80053; 82803; 82948; 83880; 84484; 85025; 85610; 85730; 87040; 93005; 99285; G0378

== ENCOUNTER 2016-07-26 21:48 | Observation (INO) | payer MEDICARE, OTHER ==
[2016-07-26 21:48] VITALS: BMI 46.0
[2016-07-27 00:35] LABS: BASO # 0.1 K/uL (0.0-0.2); BASO % 1.1 % (0.0-2.0); EOS # 0.2 K/uL (0.0-0.7); EOS % 2.1 % (0.0-4.0); HEMATOCRIT 30.9 % (35.0-51.0); LYMPH # 2.1 K/uL (1.0-4.3); MEAN CELL VOLUME 77.2 fL (80.0-94.0); MEAN CORPUSCULAR HEMOGLOBIN 23.8 pg (27.0-31.0); MEAN CORPUSCULAR HGB CONC 30.8 g/dL (33.0-37.0); MEAN PLATELET VOLUME 8.3 fL (7.2-11.7); MONO # 0.6 K/uL (0.0-0.8); MONO % 7.3 % (0.0-10.0); RED CELL DISTRIBUTION WIDTH 16.8 % (11.5-14.5); WHITE BLOOD COUNT 8.3 K/uL (4.8-10.8)
--- NOTE | 2016-07-27 00:42 | C.PDOC ---
History Of Present Illness 51 year old male presents to the ED with complaints of increased SOB, increased swelling to lower extremities, ulcer to right leg and draining clear fluid after signing AMA two days ago. Patient states he is taking all of his medications and denies fever, chills, cough, or chest pain. Time Seen by Provider: 07/26/16 22:30 Chief Complaint (Nursing): Lower Extremity Problem/Injury History Per: Patient History/Exam Limitations: no limitations Onset/Duration Of Symptoms: Days Current Symptoms Are (Timing): Still Present Recent travel outside of the [place]: No Past Medical History Reviewed: Historical Data, Nursing Documentation, Vital Signs Vital Signs: Last Vital Signs Temp 98.3 F 07/29/16 08:01 Pulse 90 07/29/16 11:40 Resp 20 07/29/16 08:01 BP 160/97 H 07/29/16 11:12 Pulse Ox 100 07/29/16 18:30 - Medical History PMH: Anxiety, Atrial Fibrillation, Back Problems, CAD, CHF, COPD, Diabetes, Deep Vein Thrombosis, Emphysema, Graves' Disease, HTN, Peripheral Edema, Pneumonia, Sleep Apnea, TIA (Hx of Strokes-2008) Surgical History: CABG (2008), Coronary Stent (3 Stents Prior to Quadruple Bypass), Pacemaker (left upper chest) - [facility] Procedures ASSISTANCE WITH RESPIRATORY VENTILATION, 24-96 HRS, CPAP (10/15/15) INJECT/INFUSE NEC (10/09/12) Family History: States: Unknown Family Hx - Social History Hx Tobacco Use: Yes Hx Alcohol Use: No Hx Substance Use: No - Immunization History Hx Tetanus Toxoid Vaccination: Yes Hx Influenza Vaccination: Yes Hx Pneumococcal Vaccination: Yes Review Of Systems Constitutional: Negative for: Fever, Chills, Sweats Cardiovascular: Negative for: Chest Pain, Palpitations Respiratory: Positive for: Shortness of Breath. Negative for: Cough Gastrointestinal: Negative for: Nausea, Vomiting, Abdominal Pain, Diarrhea Skin: Positive for: Other (ulcer on right leg with clear drainage ) Physical Exam - Physical Exam Appears: Non-toxic, No Acute Distress, Other (patient appears obese) Skin: Warm, Dry Oral Mucosa: Moist Neck: Supple Chest: Symmetrical, No Deformity Cardiovascular: Rhythm Regular Respiratory: No Rales, No Rhonchi, No Stridor, No Wheezing Gastrointestinal/Abdominal: Soft, No Tenderness, No Distention, No Guarding, No Rebound Extremity: Other (3+ edema in both lower extremeties and chronic status changes. Right lower leg anterior 1cm x 5 cm superficial ulcer with mild serous drainage ) Pulses: Left Femoral: Normal, Right Femoral: Normal, Left Dorsalis Pedis: Normal , Right Dorsalis Pedis: Normal DTR: Ankle (R): 3+, Ankle (L): 3+ Neurological/Psych: Oriented x3 ED Course And Treatment - Laboratory Results Result Diagrams: 07/29/16 06:17 07/29/16 06:17 ECG: Interpreted By Me, Viewed By Me ECG Rhythm: A Paced Interpretation Of ECG: A paced with frequent PVCs O2 Sat by Pulse Oximetry: 100 (room air ) - Radiology CXR: Interpreted by Me, Viewed By Me CXR Interpretation: No: Infiltrates Medical Decision Making Medical Decision Making: In view of symptoms Case discussed with dr Garcia Plan observation Disposition - Disposition Disposition: HOSPITALIZED Disposition Time: 00:41 Condition: FAIR - Clinical Impression Clinical Impression: Morbid obesity with BMI of 45.0-49.9, adult, HTN (hypertension), Diabetes mellitus, Chest discomfort, Leg ulcer, Dyspnea - Scribe Statement The provider has reviewed the documentation as recorded by the Scribe Livier Gonzalez All medical record entries made by the Scribe were at my direction and personally dictated by me. I have reviewed the chart and agree that the record accurately reflects my personal performance of the history, physical exam, medical decision making, and the department course for this patient. I have also personally directed, reviewed, and agree with the discharge instructions and disposition.
[2016-07-27 00:49] LABS: ALB/GLOB RATIO 0.9 (1.0-2.1); ALKALINE PHOSPHATASE 126 U/L (38-126); ALT/SGPT 19 U/L (21-72); AST/SGOT 16 U/L (17-59); BILIRUBIN,TOTAL 0.5 mg/dL (0.2-1.3); BLOOD UREA NITROGEN 22 mg/dL (9-20); CALCIUM 8.1 mg/dl (8.6-10.4); CARBON DIOXIDE 28 mmol/L (22-30); CHLORIDE 101 mmol/L (98-107); GFR AFRICAN-AMERICAN > 60; GLUCOSE,RANDOM 193 mg/dL (75-110); POTASSIUM 3.8 mmol/L (3.6-5.2); SODIUM 138 mmol/L (132-148); TOTAL PROTEIN 6.5 g/dL (6.3-8.3)
[2016-07-27] MEDS: oxyCODONE 30 mg Immediate Release Tab PO PRN ×3 (02:23→21:59)
[2016-07-27] MEDS: (Novolog) Insulin Aspart, Recombinant 100 u/ml 10 ml vial SC SCH ×4 (08:00→21:57)
--- NOTE | 2016-07-27 09:01 | RAD ---
PROCEDURE: CHEST RADIOGRAPH, 1 VIEW performed 22:52. HISTORY: SOB COMPARISON: 07/23/2016 FINDINGS: LUNGS: Clear. PLEURA: No pneumothorax or pleural fluid seen. CARDIOVASCULAR: No radiographic findings to suggest acute or significant cardiovascular disease. Position/ configuration of pacemaker device: Satisfactory. Venous access catheter in stable, satisfactory position. Incidental Finding(s): Postoperative changes related to sternotomy. OSSEOUS STRUCTURES: No significant abnormalities. VISUALIZED UPPER ABDOMEN: Normal. OTHER FINDINGS: None. IMPRESSION: No active disease. No acute/significant interval changes. Concordant results with the preliminary interpretation rendered by the emergency department physician procedure.
--- NOTE | 2016-07-27 12:01 | CP.PCM.HP ---
Present on Admission - Present on Admission Any Indicators Present on Admission: No Past Patient History - Infectious Disease Hx of Infectious Diseases: None - Past Medical History & Family History Past Medical History?: Yes - Past Social History Smoking Status: Current Some Days Smoker - CARDIAC Hx Atrial Fibrillation: Yes Hx Congestive Heart Failure: Yes Hx Hypertension: Yes Hx Pacemaker: Yes (left upper chest) Hx Peripheral Edema: Yes - PULMONARY Hx Chronic Obstructive Pulmonary Disease (COPD): Yes Hx Emphysema: Yes Hx Pneumonia: Yes Hx Sleep Apnea: Yes - NEUROLOGICAL Hx Transient Ischemic Attacks (TIA): Yes (Hx of Strokes-2008) - HEENT Hx HEENT Problems: No - RENAL Hx Chronic Kidney Disease: No - ENDOCRINE/METABOLIC Hx Diabetes Mellitus Type 2: Yes Hx Hypothyroidism: Yes Other/Comment: graves disease - HEMATOLOGICAL/ONCOLOGICAL Hx Blood Disorders: No Hx Blood Transfusions: Yes - INTEGUMENTARY Hx Dermatological Problems: No Other/Comment: wound ulcer right [place] - MUSCULOSKELETAL/RHEUMATOLOGICAL Hx Falls: No - GASTROINTESTINAL Hx Gastrointestinal Disorders: No - GENITOURINARY/GYNECOLOGICAL Hx Genitourinary Disorders: No - PSYCHIATRIC Hx Substance Use: No - SURGICAL HISTORY Hx Coronary Artery Bypass Graft: Yes (2008) Hx Coronary Stent: Yes (3 Stents Prior to Quadruple Bypass) - ANESTHESIA Hx Anesthesia: Yes Hx Anesthesia Reactions: No Hx Malignant Hyperthermia: No Meds Home Medications: Home Medication List Medication Instructions Recorded Confirmed Type Apixaban [Eliquis] 5 mg PO Q12 #60 tab 07/29/16 Rx Allergies/Adverse Reactions: Allergies Allergy/AdvReac Type Severity Reaction Status Date / Time No Known Drug Allergies Allergy n/a Verified 07/04/16 00:48 Results - Vital Signs Recent Vital Signs: Last Vital Signs Temp 97.6 F 07/27/16 02:05 Pulse 80 07/27/16 08:50 Resp 16 07/27/16 02:05 BP 131/88 07/27/16 10:52 Pulse Ox 98 07/27/16 02:05 - Labs Result Diagrams: 07/29/16 06:17 07/29/16 06:17 Labs: Laboratory Results - last 24 hr 07/27/16 07/27/16 07/27/16 06:27 07:24 07:24 POC Glucose (mg/dL) 178 H Total Creatine Kinase 102 CK-MB (Mass) 0.64 Troponin I, Quant 0.0150 TSH 3rd Generation 2.10
[2016-07-27] MEDS: Ferric Sodium Gluconat Complex 62.5 mg/5 ml Vial IVPB SCH (13:02)
[2016-07-27] MEDS: Digoxin 125 mcg (0.125 mg) Tab PO SCH (18:37)
[2016-07-28] MEDS: oxyCODONE 30 mg Immediate Release Tab PO PRN ×5 (02:48→22:17)
[2016-07-28] MEDS: Levothyroxine 100 MCG TAB PO SCH (06:02)
[2016-07-28] MEDS: (Novolog) Insulin Aspart, Recombinant 100 u/ml 10 ml vial SC SCH ×4 (07:37→22:19)
[2016-07-28] MEDS: Ferric Sodium Gluconat Complex 62.5 mg/5 ml Vial IVPB SCH (09:14)
[2016-07-28 15:37] VITALS: RESP 20
[2016-07-28] MEDS: Digoxin 125 mcg (0.125 mg) Tab PO SCH (17:28)
[2016-07-28 17:29] VITALS: PULSE 81
--- NOTE | 2016-07-28 23:42 | CP.PCM.PN ---
Subjective - Date & Time of Evaluation Date of Evaluation: 07/28/16 Time of Evaluation: 07:41 - Subjective Subjective: Pt seen and examined, feeling better, edema went down, on BIPAP, less short of breath Objective - Vital Signs/Intake and Output Vital Signs (last 24 hours): Temp Pulse Resp BP Pulse Ox 98.5 F 76 20 179/114 H 96 07/28/16 15:33 07/28/16 22:00 07/28/16 15:33 07/28/16 22:12 07/28/16 15:33 Intake and Output: 07/28/16 07/29/16 18:59 06:59 Intake Total 610 Balance 610 - Medications Medications: Current Medications Apixaban (Eliquis) 5 mg PO Q12 [facility] Last Admin: 07/28/16 22:10 Dose: 5 mg Carvedilol (Coreg) 25 mg PO BID [facility] Last Admin: 07/28/16 17:27 Dose: 25 mg Digoxin (Lanoxin) 0.125 mg PO DAILY@1800 [facility] Last Admin: 07/28/16 17:28 Dose: 0.125 mg Ferric Sodium Gluconate Complex (Ferrlecit) 125 mg IVPB DAILY [facility] Stop: 08/04/16 12:31 Last Admin: 07/28/16 09:14 Dose: Not Given Ferrous Sulfate (Feosol) 325 mg PO DAILY [facility] Last Admin: 07/28/16 09:14 Dose: 325 mg Furosemide (Lasix) 60 mg IVP Q12 [facility] Last Admin: 07/28/16 22:12 Dose: 60 mg Hydroxychloroquine Sulfate (Plaquenil) 200 mg PO BID [facility] Last Admin: 07/28/16 17:28 Dose: 200 mg Insulin Aspart (Novolog) 0 unit SC [facility] PRN Reason: Protocol Last Admin: 07/28/16 22:19 Dose: Not Given Levothyroxine Sodium (Synthroid) 100 mcg PO DAILY@0630 [facility] Last Admin: 07/28/16 06:02 Dose: 100 mcg Lisinopril (Zestril) 5 mg PO DAILY [facility] Last Admin: 07/28/16 09:02 Dose: 5 mg Oxycodone HCl (Oxycodone Immediate Release Tab) 30 mg PO Q4H PRN PRN Reason: Pain, moderate (4-7) Last Admin: 07/28/16 22:17 Dose: 30 mg Rosuvastatin Calcium (Crestor) 40 mg PO HS [facility] Last Admin: 07/28/16 22:10 Dose: 40 mg Sitagliptin Phosphate (Januvia) 25 mg PO DAILY [facility] Last Admin: 07/28/16 09:13 Dose: 25 mg - Constitutional Appears: No Acute Distress - Head Exam Head Exam: ATRAUMATIC, NORMAL INSPECTION, NORMOCEPHALIC - Eye Exam Eye Exam: EOMI, Normal appearance, PERRL Pupil Exam: NORMAL ACCOMODATION, PERRL - Respiratory Exam Respiratory Exam: Clear to Ausculation Bilateral, NORMAL BREATHING PATTERN - Cardiovascular Exam Cardiovascular Exam: REGULAR RHYTHM, +S1, +S2. absent: Murmur - GI/Abdominal Exam GI & Abdominal Exam: Soft, Normal Bowel Sounds. absent: Tenderness Assessment and Plan (1) Hypertensive heart disease Status: Active (2) Hypothyroidism Status: Active (3) CHF (congestive heart failure) Status: Acute (4) Diabetes mellitus Status: Acute (5) Dyspnea Status: Acute
[2016-07-29] MEDS: oxyCODONE 30 mg Immediate Release Tab PO PRN ×3 (02:50→11:33)
[2016-07-29] MEDS: Levothyroxine 100 MCG TAB PO SCH (06:07)
[2016-07-29 06:36] LABS: HEMATOCRIT 34.9 % (35.0-51.0); MEAN CELL VOLUME 77.1 fL (80.0-94.0); MEAN CORPUSCULAR HEMOGLOBIN 24.4 pg (27.0-31.0); MEAN CORPUSCULAR HGB CONC 31.6 g/dL (33.0-37.0); MEAN PLATELET VOLUME 8.5 fL (7.2-11.7); WHITE BLOOD COUNT 10.7 K/uL (4.8-10.8)
[2016-07-29 06:50] LABS: CHLORIDE 93 mmol/L (98-107); POTASSIUM 3.3 mmol/L (3.6-5.2); SODIUM 135 mmol/L (132-148)
[2016-07-29 06:52] LABS: BILIRUBIN,TOTAL 0.8 mg/dL (0.2-1.3); GFR AFRICAN-AMERICAN > 60
[2016-07-29 06:53] LABS: ALB/GLOB RATIO 0.8 (1.0-2.1); ALKALINE PHOSPHATASE 111 U/L (38-126); ALT/SGPT 17 U/L (21-72); AST/SGOT 15 U/L (17-59); BLOOD UREA NITROGEN 9 mg/dL (9-20); CARBON DIOXIDE 35 mmol/L (22-30); GLUCOSE,RANDOM 190 mg/dL (75-110); TOTAL PROTEIN 6.7 g/dL (6.3-8.3)
[2016-07-29 06:54] LABS: CALCIUM 8.2 mg/dl (8.6-10.4)
[2016-07-29 08:02] VITALS: BP 160/97; TEMP 98.3
[2016-07-29] MEDS: (Novolog) Insulin Aspart, Recombinant 100 u/ml 10 ml vial SC SCH ×2 (08:30→11:39)
[2016-07-29] MEDS ORDERED: Potassium Chloride 20 mEq ER Tab PO ONE (10:00)
[2016-07-29] MEDS: Ferric Sodium Gluconat Complex 62.5 mg/5 ml Vial IVPB SCH ×2 (11:13→11:19)
[2016-07-29 11:48] VITALS: PULSE 90
--- NOTE | 2016-07-29 12:34 | PCM.HF ---
Heart Failure Core Measure - Heart Failure Ejection Fraction: 40 % or Greater JEANNE Inhibitor Prescribed: Yes Beta-Rian Prescribed: Carvedilol Angiotensin II Receptor Rian Prescribed: No Contraindication/Reason for not providing: on jeanne AnticoagulationTherapy for Atrial Fibrillation/Atrialflutter: Yes Aldosterone Antagonist Prescribed: No Contraindication/Reason for not providing: EF >40% Hydralazine Nitrate Prescribed: No Contraindication/Reason for not providing: EF >40% Implantable Cardioverter Defibrillator Therapy: Yes Cardiac Resynchronization Therapy Prescribed: No Contraindication/Reason for not providing: not indicated - Follow up Will be discharged to: Home Follow Up Date (must be within 7 days from discharge): 06/30/16 Follow Up Time: 09:00
--- NOTE | 2016-07-29 12:39 | CP.PCM.PN ---
Subjective - Date & Time of Evaluation Date of Evaluation: 07/29/16 Time of Evaluation: 12:39 - Subjective Subjective: Alert, orientedx3, NAD. Objective - Vital Signs/Intake and Output Vital Signs (last 24 hours): Temp Pulse Resp BP Pulse Ox 98.3 F 90 20 160/97 H 95 07/29/16 08:01 07/29/16 11:40 07/29/16 08:01 07/29/16 11:12 07/29/16 08:01 Intake and Output: 07/29/16 07/29/16 06:59 18:59 Intake Total 120 Output Total 700 Balance -580 - Medications Medications: Current Medications Apixaban (Eliquis) 5 mg PO Q12 [facility] Last Admin: 07/29/16 11:12 Dose: 5 mg Carvedilol (Coreg) 25 mg PO BID [facility] Last Admin: 07/29/16 11:12 Dose: 25 mg Digoxin (Lanoxin) 0.125 mg PO DAILY@1800 [facility] Last Admin: 07/28/16 17:28 Dose: 0.125 mg Ferric Sodium Gluconate Complex (Ferrlecit) 125 mg IVPB DAILY [facility] Stop: 08/04/16 12:31 Last Admin: 07/29/16 11:19 Dose: Not Given Ferrous Sulfate (Feosol) 325 mg PO DAILY [facility] Last Admin: 07/29/16 11:12 Dose: 325 mg Furosemide (Lasix) 60 mg IVP Q12 [facility] Last Admin: 07/29/16 12:33 Dose: Not Given Hydroxychloroquine Sulfate (Plaquenil) 200 mg PO BID [facility] Last Admin: 07/29/16 11:11 Dose: 200 mg Insulin Aspart (Novolog) 0 unit SC [facility] PRN Reason: Protocol Last Admin: 07/29/16 11:39 Dose: Not Given Levothyroxine Sodium (Synthroid) 100 mcg PO DAILY@0630 [facility] Last Admin: 07/29/16 06:07 Dose: 100 mcg Lisinopril (Zestril) 10 mg PO DAILY [facility] Oxycodone HCl (Oxycodone Immediate Release Tab) 30 mg PO Q4H PRN PRN Reason: Pain, moderate (4-7) Last Admin: 07/29/16 11:33 Dose: 30 mg Rosuvastatin Calcium (Crestor) 40 mg PO HS [facility] Last Admin: 07/28/16 22:10 Dose: 40 mg Sitagliptin Phosphate (Januvia) 25 mg PO DAILY [facility] Last Admin: 07/29/16 11:12 Dose: 25 mg - Labs Labs: 07/29/16 06:17 07/29/16 06:17 Assessment and Plan - Assessment and Plan (Free Text) Assessment: Patient is seen and examined. Alert and oriented x3, right leg swelling improved much. Denies sob or chest pains. D/W DR Amor, plan to discharge home and follow up in the office in 1 week.
[2016-07-29 18:30] VITALS: O2SAT 100
--- NOTE | 2016-07-29 22:47 | CP.PCM.DIS ---
Provider - Provider Date of Admission: 07/27/16 00:39 Attending physician: Ousmane Amor MD Time Spent in preparation of Discharge (in minutes): 30 Hospital Course - Lab Results Lab Results: Most Recent Lab Values WBC 10.7 K/uL (4.8-10.8) 07/29/16 06:17 RBC 4.52 Mil/uL (4.40-5.90) 07/29/16 06:17 Hgb 11.0 g/dL (12.0-18.0) L 07/29/16 06:17 Hct 34.9 % (35.0-51.0) L 07/29/16 06:17 MCV 77.1 fL (80.0-94.0) L 07/29/16 06:17 MCH 24.4 pg (27.0-31.0) L 07/29/16 06:17 MCHC 31.6 g/dL (33.0-37.0) L 07/29/16 06:17 RDW 17.0 % (11.5-14.5) H 07/29/16 06:17 Plt Count 238 K/uL (130-400) 07/29/16 06:17 MPV 8.5 fL (7.2-11.7) 07/29/16 06:17 Neut % (Auto) 64.5 % (50.0-75.0) 07/27/16 00:32 Lymph % (Auto) 25.0 % (20.0-40.0) 07/27/16 00:32 Coleman % (Auto) 7.3 % (0.0-10.0) 07/27/16 00:32 Eos % (Auto) 2.1 % (0.0-4.0) 07/27/16 00:32 Baso % (Auto) 1.1 % (0.0-2.0) 07/27/16 00:32 Neut # 5.3 K/uL (1.8-7.0) 07/27/16 00:32 Lymph # 2.1 K/uL (1.0-4.3) 07/27/16 00:32 Coleman # 0.6 K/uL (0.0-0.8) 07/27/16 00:32 Eos # 0.2 K/uL (0.0-0.7) 07/27/16 00:32 Baso # 0.1 K/uL (0.0-0.2) 07/27/16 00:32 Sodium 135 mmol/L (132-148) 07/29/16 06:17 Potassium 3.3 mmol/L (3.6-5.2) L 07/29/16 06:17 Chloride 93 mmol/L (98-107) L 07/29/16 06:17 Carbon Dioxide 35 mmol/L (22-30) H 07/29/16 06:17 Anion Gap 10 (10-20) 07/29/16 06:17 BUN 9 mg/dL (9-20) 07/29/16 06:17 Creatinine 0.8 MG/DL (0.8-1.5) 07/29/16 06:17 Est GFR ( Amer) > 60 07/29/16 06:17 Est GFR (Non-Af Amer) > 60 07/29/16 06:17 POC Glucose (mg/dL) 225 mg/dL (65-110) H 07/29/16 11:47 Random Glucose 190 mg/dL (75-110) H 07/29/16 06:17 Calcium 8.2 mg/dl (8.6-10.4) L 07/29/16 06:17 Total Bilirubin 0.8 mg/dL (0.2-1.3) 07/29/16 06:17 AST 15 U/L (17-59) L 07/29/16 06:17 ALT 17 U/L (21-72) L 07/29/16 06:17 Alkaline Phosphatase 111 U/L (38-126) 07/29/16 06:17 Total Creatine Kinase 102 U/L (55-170) 07/27/16 07:24 CK-MB (Mass) 0.64 ng/mL (0.0-3.38) 07/27/16 07:24 Troponin I 0.0150 ng/mL (0.00-0.120) 07/27/16 00:32 Troponin I, Quant 0.0150 ng/mL (0.00-0.120) 07/27/16 07:24 NT-Pro-B Natriuret Pep 1670 pg/mL (0-450) H 07/27/16 00:32 Total Protein 6.7 g/dL (6.3-8.3) 07/29/16 06:17 Albumin 3.1 g/dL (3.5-5.0) L 07/29/16 06:17 Globulin 3.7 gm/dL (2.2-3.9) 07/29/16 06:17 Albumin/Globulin Ratio 0.8 (1.0-2.1) L 07/29/16 06:17 TSH 3rd Generation 2.10 mIU/L (0.46-4.68) 07/27/16 07:24 Urine Opiates Screen Positive (NEGATIVE) 07/27/16 12:59 Urine Methadone Screen Negative (NEGATIVE) 07/27/16 12:59 Ur Barbiturates Screen Negative (NEGATIVE) 07/27/16 12:59 Ur Phencyclidine Scrn Negative (NEGATIVE) 07/27/16 12:59 Ur Amphetamines Screen Negative (NEGATIVE) 07/27/16 12:59 U Benzodiazepines Scrn Negative (NEGATIVE) 07/27/16 12:59 U Oth Cocaine Metabols Negative (NEGATIVE) 07/27/16 12:59 U Cannabinoids Screen Negative (NEGATIVE) 07/27/16 12:59 - Hospital Course Hospital Course: Pt seen & evalauted, edema went down, Alert and oriented x3, right leg swelling improved much. Denies sob or chest pains. clear to discharge home and follow up in the office in 1 week. Discharge Exam - Head Exam Head Exam: NORMAL INSPECTION - Eye Exam Eye Exam: EOMI, Normal appearance, PERRL Pupil Exam: NORMAL ACCOMODATION, PERRL - ENT Exam ENT Exam: Mucous Membranes Moist - Respiratory Exam Respiratory Exam: Clear to PA & Lateral, NORMAL BREATHING PATTERN - Cardiovascular Exam Cardiovascular Exam: REGULAR RHYTHM, +S1, +S2 - GI/Abdominal Exam GI & Abdominal Exam: Normal Bowel Sounds Discharge Plan - Discharge Medications Prescriptions: Apixaban [Eliquis] 5 mg PO Q12 #60 tab - Follow Up Plan Condition: FAIR Disposition: HOME/ ROUTINE Instructions: Apixaban (By mouth), Heart Failure (DC), Chest Pain (DC), Hypertension (DC), Hypertension (GEN) Additional Instructions: Take your medication as instructed by your doctor, any questions call your PMD. Symptoms continues go to emergency room Referrals: Ousmane Amor MD [Staff Provider] -
--- NOTE | 2016-07-30 17:29 | CARD ---
APPROVED REPORT EKG Measurement Heart [id number] [id number] <Conclusion> AV dual-paced rhythm with frequent premature ventricular complexes Abnormal ECG
== END 2016-07-29 17:05 | disposition home or self-care (01) ==
LOC: C.ER 21:48 → C.5T 07-27 00:39
PROVIDERS: ADMIT Internal Medicine; ATTEND Internal Medicine
DX: E11.622 Type 2 diabetes mellitus with other skin ulcer (principal); L97.819 Non-pressure chronic ulcer of other part of right lower leg with unspecified severity; Z79.4 Long term (current) use of insulin; E66.01 Morbid (severe) obesity due to excess calories; Z68.42 Body mass index [BMI] 45.0-49.9, adult; J44.9 Chronic obstructive pulmonary disease, unspecified; Z87.891 Personal history of nicotine dependence; I11.0 Hypertensive heart disease with heart failure; I50.9 Heart failure, unspecified; I48.91 Unspecified atrial fibrillation; G47.30 Sleep apnea, unspecified
CPT/HCPCS: 36415; 71010; 80053; 82948; 83880; 84443; 84484; 85025; 85027; 94660; 96374; 99285; G0378; G0480; J1642; J1940; J2916

== ENCOUNTER 2016-08-12 15:06 | Observation (INO) | payer MEDICARE, OTHER ==
[2016-08-12 15:06] VITALS: PULSE 81
[2016-08-12 15:12] VITALS: BMI 45.4
--- NOTE | 2016-08-12 16:48 | RAD ---
PROCEDURE: CHEST RADIOGRAPH, 1 VIEW HISTORY: SOB COMPARISON: Comparison chest 07/26/2016. FINDINGS: LUNGS: Right-sided MediPort also unchanged. Low lung volumes with mild crowded bronchovascular markings and mild bibasilar atelectasis. Developing infiltrates could be excluded followup radiographs. PLEURA: No pneumothorax or pleural fluid seen. . CARDIOVASCULAR: Sternotomy wires as well as multi lead pacemaker/ defibrillator unchanged. Heart appears mildly enlarged. OSSEOUS STRUCTURES: No significant abnormalities. VISUALIZED UPPER ABDOMEN: Normal. OTHER FINDINGS: None. IMPRESSION: Low lung volumes with mild crowded bronchovascular markings and mild bibasilar atelectasis. Developing infiltrate could be excluded followup radiographs.
[2016-08-12 17:08] LABS: BASO # 0.1 K/uL (0.0-0.2); BASO % 0.9 % (0.0-2.0); EOS # 0.1 K/uL (0.0-0.7); EOS % 2.1 % (0.0-4.0); LYMPH # 1.9 K/uL (1.0-4.3); LYMPH % 26.1 % (20.0-40.0); MEAN CELL VOLUME 78.6 fL (80.0-94.0); MEAN CORPUSCULAR HEMOGLOBIN 23.9 pg (27.0-31.0); MEAN CORPUSCULAR HGB CONC 30.4 g/dL (33.0-37.0); MEAN PLATELET VOLUME 9.2 fL (7.2-11.7); MONO # 0.5 K/uL (0.0-0.8); MONO % 6.9 % (0.0-10.0); RED CELL DISTRIBUTION WIDTH 18.1 % (11.5-14.5); WHITE BLOOD COUNT 7.2 K/uL (4.8-10.8)
[2016-08-12 17:38] LABS: CHLORIDE 101 mmol/L (98-107)
[2016-08-12 17:39] LABS: POTASSIUM 3.7 mmol/L (3.6-5.2); SODIUM 136 mmol/L (132-148)
[2016-08-12 17:41] LABS: ALB/GLOB RATIO 0.9 (1.0-2.1); AST/SGOT 37 U/L (17-59); BILIRUBIN,TOTAL 0.8 mg/dL (0.2-1.3); BLOOD UREA NITROGEN 30 mg/dL (9-20); CARBON DIOXIDE 23 mmol/L (22-30); GFR AFRICAN-AMERICAN 32; TOTAL PROTEIN 7.2 g/dL (6.3-8.3)
[2016-08-12 17:42] LABS: ALKALINE PHOSPHATASE 113 U/L (38-126); ALT/SGPT 13 U/L (21-72); CALCIUM 8.6 mg/dl (8.6-10.4); GLUCOSE,RANDOM 230 mg/dL (75-110)
--- NOTE | 2016-08-12 18:37 | C.PDOC ---
Time Seen by Provider: 08/12/16 15:52 Chief Complaint (Nursing): Chest Pain History Per: Patient Onset/Duration Of Symptoms: Hrs Current Symptoms Are (Timing): Still Present Severity: Moderate Quality: "Pain" Associated Symptoms: Dyspnea, Diaphoresis Modifying Factors: Other Indicated Below Alleviating Factors: None Additional History Per: Prior Records Past Medical History Reviewed: Historical Data, Nursing Documentation, Vital Signs Vital Signs: Last Vital Signs Temp 98.3 F 08/12/16 15:14 Pulse 79 08/12/16 17:01 Resp 17 08/12/16 17:01 BP 105/52 L 08/12/16 17:01 Pulse Ox 96 08/12/16 17:01 - Medical History PMH: Anxiety, Atrial Fibrillation, Back Problems, CAD, CHF, COPD, Diabetes, Deep Vein Thrombosis, Emphysema, Graves' Disease, HTN, Hypothyroidism, Peripheral Edema, Pneumonia, Sleep Apnea, TIA (Hx of Strokes-2008) Surgical History: CABG (2008), Coronary Stent (3 Stents Prior to Quadruple Bypass), Pacemaker (left upper chest) - [facility] Procedures ASSISTANCE WITH RESPIRATORY VENTILATION, 24-96 HRS, CPAP (10/15/15) INJECT/INFUSE NEC (10/09/12) Family History: States: Unknown Family Hx - Social History Hx Tobacco Use: Yes Hx Alcohol Use: No Hx Substance Use: No - Immunization History Hx Tetanus Toxoid Vaccination: Yes Hx Influenza Vaccination: Yes Hx Pneumococcal Vaccination: Yes Review Of Systems Except As Marked, All Systems Reviewed And Found Negative. Constitutional: Negative for: Fever Cardiovascular: Positive for: Chest Pain Respiratory: Positive for: Shortness of Breath. Negative for: Hemoptysis Gastrointestinal: Negative for: Vomiting, Abdominal Pain Musculoskeletal: Negative for: Neck Pain Skin: Positive for: Rash (on legs) Neurological: Negative for: Weakness, Numbness, Seizures Physical Exam - Physical Exam Appears: Chronically Ill Skin: Warm Head: Atraumatic Eye(s): bilateral: PERRL, EOMI Neck: Normal ROM, Supple Cardiovascular: Rhythm Regular Respiratory: Normal Breath Sounds, No Accessory Muscle Use Gastrointestinal/Abdominal: Soft, No Tenderness Extremity: Normal ROM, Pedal Edema, Other (b/l LE skin changes) Neurological/Psych: Oriented x3, Normal Motor, Normal Sensation ED Course And Treatment - Laboratory Results Result Diagrams: 08/12/16 16:52 06/13/17 16:52 Interpretation Of Abnormal: Renal insufficiency ECG: Interpreted By Me, Viewed By Me ECG Rhythm: AV Paced, Nonspecific Changes ECG Interpretation: No Changes From Prior Rate From EC O2 Sat by Pulse Oximetry: 96 Pulse Ox Interpretation: Normal - Radiology CXR: Viewed By Me, Read By Radiologist CXR Interpretation: Yes: Cardiomegaly Progress - Interventions Interventions:: Observation, Oxygen - Medications Administered Oral: Aspirin (Pt took prior to arrival) - Data Reviewed Data Reviewed: Lab, Diagnostic imaging, EKG, Old records - Patient Status Patient status: Partially improved - Continuity of Care Discussed patient case with:: Patient, ED Nurse, PMD Disposition Discussed With : Ousmane Amor Comment: He accepted pt on his service. Doctor Will See Patient In The: Hospital Counseled Patient/Family Regarding: Studies Performed, Diagnosis - Disposition Disposition: HOSPITALIZED Disposition Time: 18:38 Condition: FAIR - Clinical Impression Clinical Impression: Chest pain, Dyspnea, Renal insufficiency
[2016-08-12] MEDS: oxyCODONE 30 mg Immediate Release Tab PO PRN (21:43)
[2016-08-12] MEDS: (Novolog) Insulin Aspart, Recombinant 100 u/ml 10 ml vial SC SCH (21:48)
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
[2016-08-13] MEDS: oxyCODONE 30 mg Immediate Release Tab PO PRN ×3 (02:08→13:37)
[2016-08-13] MEDS ORDERED: Levothyroxine 100 MCG TAB PO SCH (06:30)
[2016-08-13] MEDS: (Novolog) Insulin Aspart, Recombinant 100 u/ml 10 ml vial SC SCH ×2 (07:30→11:30)
[2016-08-13 08:02] VITALS: PULSE 81
[2016-08-13 08:28] VITALS: RESP 18; TEMP 98.4; O2SAT 99
[2016-08-13 08:51] LABS: HEMATOCRIT 35.8 % (35.0-51.0); MEAN CELL VOLUME 78.3 fL (80.0-94.0); MEAN CORPUSCULAR HEMOGLOBIN 24.1 pg (27.0-31.0); MEAN CORPUSCULAR HGB CONC 30.8 g/dL (33.0-37.0); MEAN PLATELET VOLUME 9.1 fL (7.2-11.7); RED CELL DISTRIBUTION WIDTH 18.1 % (11.5-14.5); WHITE BLOOD COUNT 6.9 K/uL (4.8-10.8)
[2016-08-13 09:06] VITALS: BP 150/81
[2016-08-13 09:17] LABS: CHLORIDE 97 mmol/L (98-107); POTASSIUM 3.4 mmol/L (3.6-5.2); SODIUM 135 mmol/L (132-148)
[2016-08-13 09:20] LABS: BLOOD UREA NITROGEN 25 mg/dL (9-20); CARBON DIOXIDE 26 mmol/L (22-30); GFR AFRICAN-AMERICAN > 60; GLUCOSE,RANDOM 142 mg/dL (75-110)
[2016-08-13 09:21] LABS: CALCIUM 8.3 mg/dl (8.6-10.4)
[2016-08-13] MEDS ORDERED: Potassium Chloride 20 mEq ER Tab PO ONE (10:30)
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
--- NOTE | 2016-08-13 14:40 | CP.PCM.PN ---
Subjective - Date & Time of Evaluation Date of Evaluation: 08/13/16 Time of Evaluation: 11:20 - Subjective Subjective: Pt seen today , chest pain resolved , little sore on left side of chest, denies any sob, palpitations, dizziness no overnight events recorded on monitor oob ambulating the hallway without sob Pt refused renal ultrasound seen by Dr. De Luna troponin - negative Objective - Vital Signs/Intake and Output Vital Signs (last 24 hours): Temp Pulse Resp BP Pulse Ox 98.4 F 81 18 150/81 99 08/13/16 07:12 08/13/16 07:30 08/13/16 07:12 08/13/16 09:04 08/13/16 07:12 - Medications Medications: Current Medications Apixaban (Eliquis) 5 mg PO Q12 [facility] Last Admin: 08/13/16 09:05 Dose: 5 mg Carvedilol (Coreg) 25 mg PO BID [facility] Last Admin: 08/13/16 09:04 Dose: 25 mg Clopidogrel Bisulfate (Plavix) 75 mg PO DAILY [facility] Last Admin: 08/13/16 09:07 Dose: 75 mg Digoxin (Lanoxin) 0.125 mg PO DAILY@1800 [facility] Ferrous Sulfate (Feosol) 325 mg PO DAILY [facility] Last Admin: 08/13/16 09:08 Dose: 325 mg Hydroxychloroquine Sulfate (Plaquenil) 200 mg PO BID [facility] Last Admin: 08/13/16 09:05 Dose: 200 mg Insulin Aspart (Novolog) 0 unit SC ACHS [facility] PRN Reason: Protocol Last Admin: 08/13/16 11:30 Dose: Not Given Levothyroxine Sodium (Synthroid) 100 mcg PO DAILY@0630 [facility] Last Admin: 08/13/16 06:46 Dose: 100 mcg Lisinopril (Zestril) 5 mg PO DAILY [facility] Last Admin: 08/13/16 09:07 Dose: 5 mg Oxycodone HCl (Oxycodone Immediate Release Tab) 30 mg PO Q4H PRN PRN Reason: Pain, moderate (4-7) Last Admin: 08/13/16 13:37 Dose: 30 mg Rosuvastatin Calcium (Crestor) 10 mg PO HS [facility] Last Admin: 08/12/16 21:43 Dose: 10 mg Sitagliptin Phosphate (Januvia) 25 mg PO DAILY [facility] Last Admin: 08/13/16 09:08 Dose: 25 mg - Labs Labs: 08/13/16 08:42 08/13/16 08:42 - Constitutional Appears: Well, No Acute Distress - Respiratory Exam Respiratory Exam: NORMAL BREATHING PATTERN - Cardiovascular Exam Cardiovascular Exam: REGULAR RHYTHM - Extremities Exam Extremities Exam: Full ROM, Pedal Edema Assessment and Plan - Assessment and Plan (Free Text) Assessment: A/P 51 yr old male admitted for chest pain an d renal insufficiency troponin x 3 - negative bun/cr. -improved 24/1.4( base line) Pt refused renal ultrasound seen by Dr. De Luna, D/W with Dr. De Luna, cleared for discharge from cardiology stand point D/W with Dr. Amor, stable for discharge home today and f/u with Dr. Frias office in 3- 5 days discharge plan discussed with patient who understands and agrees with plan Pt instructed to returns to ED if symptoms return or any concerning symptoms
--- NOTE | 2016-08-13 14:55 | PCM.HF ---
Heart Failure Core Measure - Heart Failure Ejection Fraction: 40 % or Greater JEANNE Inhibitor Prescribed: Yes Beta-Rian Prescribed: Carvedilol Angiotensin II Receptor Rian Prescribed: No Contraindication/Reason for not providing: on jeanne AnticoagulationTherapy for Atrial Fibrillation/Atrialflutter: Yes Aldosterone Antagonist Prescribed: No Contraindication/Reason for not providing: ef>45 Hydralazine Nitrate Prescribed: No Contraindication/Reason for not providing: ef>45 Implantable Cardioverter Defibrillator Therapy: Yes Cardiac Resynchronization Therapy Prescribed: No Contraindication/Reason for not providing: pt has ICD - Follow up Will be discharged to: Home Follow Up Date (must be within 7 days from discharge): 08/18/16 Follow Up Time: 09:00
[2016-08-13] MEDS ORDERED: Digoxin 125 mcg (0.125 mg) Tab PO SCH (18:00)
--- NOTE | 2016-08-13 23:44 | CP.PCM.DIS ---
Provider - Provider Date of Admission: 08/12/16 18:39 Attending physician: Ousmane Amor MD Diagnosis - Discharge Diagnosis (1) Chest pain Status: Acute (2) Dyspnea Status: Acute (3) Hypothyroidism Status: Active (4) AICD (automatic cardioverter/defibrillator) present Status: Acute (5) CHF exacerbation Status: Acute Hospital Course - Lab Results Lab Results: Most Recent Lab Values WBC 6.9 K/uL (4.8-10.8) 08/13/16 08:42 RBC 4.57 Mil/uL (4.40-5.90) 08/13/16 08:42 Hgb 11.0 g/dL (12.0-18.0) L 08/13/16 08:42 Hct 35.8 % (35.0-51.0) 08/13/16 08:42 MCV 78.3 fL (80.0-94.0) L 08/13/16 08:42 MCH 24.1 pg (27.0-31.0) L 08/13/16 08:42 MCHC 30.8 g/dL (33.0-37.0) L 08/13/16 08:42 RDW 18.1 % (11.5-14.5) H 08/13/16 08:42 Plt Count 158 K/uL (130-400) 08/13/16 08:42 MPV 9.1 fL (7.2-11.7) 08/13/16 08:42 Neut % (Auto) 64.0 % (50.0-75.0) 08/12/16 16:52 Lymph % (Auto) 26.1 % (20.0-40.0) 08/12/16 16:52 Nolan % (Auto) 6.9 % (0.0-10.0) 08/12/16 16:52 Eos % (Auto) 2.1 % (0.0-4.0) 08/12/16 16:52 Baso % (Auto) 0.9 % (0.0-2.0) 08/12/16 16:52 Neut # 4.6 K/uL (1.8-7.0) 08/12/16 16:52 Lymph # 1.9 K/uL (1.0-4.3) 08/12/16 16:52 Nolan # 0.5 K/uL (0.0-0.8) 08/12/16 16:52 Eos # 0.1 K/uL (0.0-0.7) 08/12/16 16:52 Baso # 0.1 K/uL (0.0-0.2) 08/12/16 16:52 Sodium 135 mmol/L (132-148) 08/13/16 08:42 Potassium 3.4 mmol/L (3.6-5.2) L 08/13/16 08:42 Chloride 97 mmol/L (98-107) L 08/13/16 08:42 Carbon Dioxide 26 mmol/L (22-30) 08/13/16 08:42 Anion Gap 15 (10-20) 08/13/16 08:42 BUN 25 mg/dL (9-20) H 08/13/16 08:42 Creatinine 1.4 MG/DL (0.8-1.5) 08/13/16 08:42 Est GFR ( Amer) > 60 08/13/16 08:42 Est GFR (Non-Af Amer) 54 08/13/16 08:42 POC Glucose (mg/dL) 177 mg/dL (65-110) H 08/13/16 06:28 Random Glucose 142 mg/dL (75-110) H 08/13/16 08:42 Calcium 8.3 mg/dl (8.6-10.4) L 08/13/16 08:42 Total Bilirubin 0.8 mg/dL (0.2-1.3) 08/12/16 16:52 AST 37 U/L (17-59) 08/12/16 16:52 ALT 13 U/L (21-72) L D 08/12/16 16:52 Alkaline Phosphatase 113 U/L (38-126) 08/12/16 16:52 Total Creatine Kinase 59 U/L (55-170) 08/13/16 08:42 CK-MB (Mass) 0.33 ng/mL (0.0-3.38) 08/13/16 08:42 Troponin I < 0.0120 ng/mL (0.00-0.120) 08/12/16 16:52 Troponin I, Quant 0.0150 ng/mL (0.00-0.120) 08/13/16 08:42 NT-Pro-B Natriuret Pep 774 pg/mL (0-450) H 08/12/16 16:52 Total Protein 7.2 g/dL (6.3-8.3) 08/12/16 16:52 Albumin 3.5 g/dL (3.5-5.0) 08/12/16 16:52 Globulin 3.7 gm/dL (2.2-3.9) 08/12/16 16:52 Albumin/Globulin Ratio 0.9 (1.0-2.1) L 08/12/16 16:52 Digoxin 0.6 ng/mL (0.8-2.0) L 08/12/16 16:52 - Hospital Course Hospital Course: Pt seen today , chest pain resolved , little sore on left side of chest, denies any sob, palpitations, dizziness no overnight events recorded on monitor oob ambulating the hallway without sob Pt refused renal ultrasound seen by Dr. De Luna troponin - negative pt is for discharge today, BUN creatinine improved Discharge Exam - Head Exam Head Exam: ATRAUMATIC - Eye Exam Eye Exam: EOMI, Normal appearance, PERRL Pupil Exam: NORMAL ACCOMODATION, PERRL - ENT Exam ENT Exam: Mucous Membranes Moist - Respiratory Exam Respiratory Exam: Clear to PA & Lateral, NORMAL BREATHING PATTERN - Cardiovascular Exam Cardiovascular Exam: REGULAR RHYTHM, +S1, +S2 - GI/Abdominal Exam GI & Abdominal Exam: Normal Bowel Sounds Discharge Plan - Follow Up Plan Condition: FAIR Disposition: HOME/ ROUTINE Instructions: Heart Failure (DC), Chest Pain (DC), Acute Kidney Injury (DC) Additional Instructions: f/u with Dr. amor office in 1 week Continue medication as per Med. Rec. Referrals: Ousmane Amor MD [Staff Provider] -
== END 2016-08-13 15:30 | disposition home or self-care (01) ==
LOC: C.ER 15:06 → C.9E 18:39 → C.6T 19:53
PROVIDERS: ADMIT Internal Medicine; ATTEND Internal Medicine
DX: R07.9 Chest pain, unspecified (principal); E03.9 Hypothyroidism, unspecified; E11.9 Type 2 diabetes mellitus without complications; E78.2 Mixed hyperlipidemia; G47.30 Sleep apnea, unspecified; I11.0 Hypertensive heart disease with heart failure; I25.10 Atherosclerotic heart disease of native coronary artery without angina pectoris; J44.9 Chronic obstructive pulmonary disease, unspecified; N28.9 Disorder of kidney and ureter, unspecified; Z95.810 Presence of automatic (implantable) cardiac defibrillator; F17.219 Nicotine dependence, cigarettes, with unspecified nicotine-induced disorders; E66.01 Morbid (severe) obesity due to excess calories; Z68.42 Body mass index [BMI] 45.0-49.9, adult
CPT/HCPCS: 36415; 71010; 80048; 80053; 80162; 82948; 83880; 84484; 85025; 85027; 99285; G0378

== ENCOUNTER 2016-11-07 02:23 | Observation (INO) | payer MEDICARE, OTHER ==
[2016-11-07 02:23] VITALS: BMI 45.4
[2016-11-07 03:10] LABS: BASO # 0.1 K/uL (0.0-0.2); EOS # 0.2 K/uL (0.0-0.7); HEMATOCRIT 33.3 % (35.0-51.0); LYMPH # 1.4 K/uL (1.0-4.3); LYMPH % 15.2 % (20.0-40.0); MEAN CORPUSCULAR HEMOGLOBIN 25.1 pg (27.0-31.0); MEAN CORPUSCULAR HGB CONC 31.4 g/dL (33.0-37.0); MEAN PLATELET VOLUME 8.1 fL (7.2-11.7); MONO # 0.5 K/uL (0.0-0.8); MONO % 5.7 % (0.0-10.0); RED CELL DISTRIBUTION WIDTH 19.2 % (11.5-14.5); WHITE BLOOD COUNT 9.4 K/uL (4.8-10.8)
[2016-11-07 03:13] LABS: POTASSIUM 4.2 mmol/L (3.6-5.2)
[2016-11-07 03:15] LABS: ALB/GLOB RATIO 0.9 (1.0-2.1); BILIRUBIN,TOTAL 0.6 mg/dL (0.2-1.3); TOTAL PROTEIN 8.5 g/dL (6.3-8.3)
[2016-11-07 03:16] LABS: CALCIUM 8.8 mg/dl (8.6-10.4)
[2016-11-07 03:27] LABS: TROPONIN I 0.024 ng/mL (0.00-0.120)
[2016-11-07 03:49] LABS: INR 1.6
--- NOTE | 2016-11-07 03:55 | C.PDOC ---
History Of Present Illness 51 y/o M c PMHx CAD, IA, pacemaker/ICD, Afib, CHF p/w chest pain that began at rest, L sided squeezing, associated with nausea and shortness of breath. Took 2 full dose aspirin prior to arrival. Time Seen by Provider: 11/07/16 02:45 Chief Complaint (Nursing): Chest Pain Past Medical History Vital Signs: Last Vital Signs Temp 97.5 F L 11/07/16 02:35 Pulse 93 H 11/07/16 03:26 Resp 18 11/07/16 03:26 BP 100/49 L 11/07/16 03:26 Pulse Ox 100 11/07/16 03:55 - Medical History PMH: Anxiety, Atrial Fibrillation, Back Problems, CAD, CHF, COPD, Diabetes, Deep Vein Thrombosis, Emphysema, Graves' Disease, HTN, Hypothyroidism, Peripheral Edema, Pneumonia, Sleep Apnea, TIA (Hx of Strokes-2008) Denies: Chronic Kidney Disease Surgical History: CABG (2008), Coronary Stent (3 Stents Prior to Quadruple Bypass), Pacemaker (left upper chest) - [employer] Procedures ASSISTANCE WITH RESPIRATORY VENTILATION, 24-96 HRS, CPAP (10/15/15) INJECT/INFUSE NEC (10/09/12) Family History: States: Unknown Family Hx - Social History Hx Tobacco Use: Yes Hx Alcohol Use: No Hx Substance Use: No - Immunization History Hx Tetanus Toxoid Vaccination: Yes Hx Influenza Vaccination: Yes Hx Pneumococcal Vaccination: Yes Review Of Systems Except As Marked, All Systems Reviewed And Found Negative. Constitutional: Negative for: Fever Gastrointestinal: Negative for: Abdominal Pain Physical Exam - Physical Exam Appears: Non-toxic Skin: Normal Color Head: Normacephalic Eye(s): bilateral: PERRL Oral Mucosa: Moist Neck: Supple Chest: No Tenderness Cardiovascular: Rhythm Regular Respiratory: Normal Breath Sounds Gastrointestinal/Abdominal: Soft, No Tenderness Back: No CVA Tenderness Extremity: No Tenderness Pulses: Left Radial: Normal, Right Radial: Normal Neurological/Psych: Normal Speech, Normal Cognition ED Course And Treatment - Laboratory Results Result Diagrams: 11/07/16 03:02 11/07/16 03:02 O2 Sat by Pulse Oximetry: 100 Medical Decision Making Medical Decision Making: EKG ventricularly paced rhythm, 86 bpm, no ST elevations. CXR no acute disease. Dr. Amor accepts patient to his service. Disposition - Disposition Disposition: HOSPITALIZED Disposition Time: 15:51 Condition: GUARDED Forms: [employer] [facility] (Setswana) - POA Core Measure Indicators: Chest Pain - Clinical Impression Clinical Impression: Chest pain
[2016-11-07] MEDS: Levothyroxine 100 MCG TAB PO SCH (06:31)
--- NOTE | 2016-11-07 08:23 | RAD ---
HISTORY: cp COMPARISON: Chest x-ray performed 08/12/16 TECHNIQUE: Chest, one view. FINDINGS: Examination limited by habitus and hypoinflation. LUNGS: No focal consolidation. Please note that chest x-ray has limited sensitivity for the detection of pulmonary masses. PLEURA: No significant pleural effusion identified. No definite pneumothorax . CARDIOVASCULAR: Left-sided AICD. Median sternotomy wires. Cardiomegaly. OSSEOUS STRUCTURES: No acute osseous abnormality identified. VISUALIZED UPPER ABDOMEN: Unremarkable. OTHER FINDINGS: None. IMPRESSION: No focal consolidation, significant pleural effusion, or definite pneumothorax identified. Left-sided AICD. Median sternotomy wires. Cardiomegaly.
[2016-11-07] MEDS: oxyCODONE 30 mg Immediate Release Tab PO PRN ×3 (08:25→17:24)
[2016-11-07] MEDS: (Novolin R) Insulin Human Regular 100 units/ml vial SC SCH ×4 (08:30→22:00)
[2016-11-07] MEDS ORDERED: Levothyroxine 100 MCG TAB PO SCH (10:00)
--- NOTE | 2016-11-07 12:17 | CARD ---
APPROVED REPORT EKG Measurement Heart [id number] <Conclusion> Atrial-sensed ventricular-paced rhythm Abnormal ECG
[2016-11-07 17:09] VITALS: RESP 20
[2016-11-07] MEDS ORDERED: Digoxin 125 mcg (0.125 mg) Tab PO SCH (18:00)
--- NOTE | 2016-11-07 19:03 | CON ---
CARDIOLOGY CONSULT REASON FOR CONSULTATION: Chest pain and exacerbation of congestive heart failure. HISTORY OF PRESENT ILLNESS: The patient is a 51-year-old, morbidly obese male who has a history of coronary artery disease, status post coronary artery bypass surgery and ICD placement, history of atrial fibrillation, history of sleep apnea and history of chronic leg cellulitis. The patient presented because of chest discomfort as well as shortness of breath. The patient had numerous admissions in the past. I did review recent cardiac catheterization performed a few months ago at [facility] and I concluded no intervention is required to be performed. SOCIAL HISTORY: The patient is nonsmoker. MEDICATIONS: Coreg 25 mg twice a day, Crestor 40 mg once a day, Eliquis 5 mg twice a day, Feosol 325 mg once a day, Januvia 25 mg once a day, Lanoxin 0.125 mg once a day, Lasix 40 mg p.o. twice a day, Plavix 75 mg once a day, Plaquenil 200 mg twice a day, Synthroid 100 mcg once a day, Zestril 5 mg once a day. REVIEW OF SYSTEMS: No nausea or vomiting. No dizziness or syncope. No recent discharge from defibrillator. PHYSICAL EXAMINATION GENERAL: The patient is a middle-age male who does not appear to be in acute distress. VITAL SIGNS: Blood pressure 90/63, heart rate 87, temperature 98 and respirations 18. HEENT: Normocephalic. CHEST: Diminished breath sounds over the left base. HEART: S1 and S2 regular. ABDOMEN: Soft. EXTREMITIES: Bilateral leg edema with chronic skin changes. Dressings are applied to the right leg. DIAGNOSTIC DATA: Chest x-ray revealed cardiomegaly, mild CHF, ICD, dual-chamber pacemaker is seen. EKG revealed atrial fibrillation, ventricular paced rate, heart rate 86. Laboratories: Hemoglobin and hematocrit 10.4 and 33.2, white count and platelet count are within normal limit. SMA-7: Sodium 141, potassium 4.2, chloride 101, CO2 of 24, glucose 170, BUN 62, creatinine 2.0. Two sets of troponin are negative. INR is 1.6 and PTT 34. ASSESSMENT: 1. Chest pain, myocardial infarction is ruled out. 2. Exacerbation of congestive heart failure. 3. Chronic renal insufficiency. 4. Morbid obesity and sleep apnea. 5. Mild anemia. 6. Hypothyroidism. 7. Paroxysmal atrial fibrillation. RECOMMENDATIONS: Continue Coreg at 25 mg twice a day, Crestor at 40 mg once a day, Eliquis at 5 mg twice a day, Lanoxin 0.125 mg once a day, Lasix at 40 mg p.o. twice a day, Plavix at 75 mg once a day, Synthroid at 100 mcg once a day, Zestril at 5 mg once a day. Obtain serum digoxin level. Burke Bernstein MD
[2016-11-07 19:31] VITALS: PULSE 88
[2016-11-08] MEDS: oxyCODONE 30 mg Immediate Release Tab PO PRN ×4 (00:25→13:56)
[2016-11-08 02:50] VITALS: TEMP 98.3
[2016-11-08] MEDS: Levothyroxine 100 MCG TAB PO SCH (05:39)
[2016-11-08] MEDS: (Novolin R) Insulin Human Regular 100 units/ml vial SC SCH ×3 (08:00→12:30)
[2016-11-08 08:31] VITALS: PULSE 86; O2SAT 96
[2016-11-08 09:41] VITALS: BP 121/77
--- NOTE | 2016-11-08 14:24 | CP.PCM.PN ---
Subjective - Date & Time of Evaluation Date of Evaluation: 11/08/16 Time of Evaluation: 14:24 - Subjective Subjective: PT SEEN BY DR. BLANDON AND CLEARED FOR D/C HOME. PT REFUSED DIG LEVEL SEVERAL TIMES, DESPITE BEING MADE AWARE OF THE IMPORTANCE OF HAVING IT DONE. DR. MCKINLEY MADE AWARE. PT TO F/U IN THE OFFICE OP. PT ALSO PROVIDED WITH PODIATRY RECOMMENDATION FOR HEALING RIGHT LOWER EXT SKIN INFECTION (UPON EVAL THERE IS NO SKIN OPENING, TENDERNESS, REDNESS, OR OOZING). NO FURTHER ORDERS. Objective - Vital Signs/Intake and Output Vital Signs (last 24 hours): Temp Pulse Resp BP Pulse Ox 98.3 F 86 20 121/77 96 11/08/16 08:26 11/08/16 08:26 11/08/16 08:26 11/08/16 09:40 11/08/16 08:26 Intake and Output: 11/08/16 11/08/16 06:59 18:59 Intake Total 240 Balance 240 - Medications Medications: Current Medications Apixaban (Eliquis) 5 mg PO Q12 [facility] Last Admin: 11/08/16 09:41 Dose: 5 mg Carvedilol (Coreg) 25 mg PO BID [facility] Last Admin: 11/08/16 09:40 Dose: 25 mg Clopidogrel Bisulfate (Plavix) 75 mg PO DAILY [facility] Last Admin: 11/08/16 09:33 Dose: 75 mg Digoxin (Lanoxin) 0.125 mg PO DAILY@1800 [facility] Last Admin: 11/07/16 19:31 Dose: 0.125 mg Ferrous Sulfate (Feosol) 325 mg PO DAILY [facility] Last Admin: 11/08/16 09:32 Dose: 325 mg Furosemide (Lasix) 40 mg PO BID [facility] Last Admin: 11/08/16 09:40 Dose: 40 mg Hydroxychloroquine Sulfate (Plaquenil) 200 mg PO BID [facility] Last Admin: 11/08/16 09:35 Dose: 200 mg Insulin Human Regular (Novolin R) 0 unit SC [facility] PRN Reason: Protocol Last Admin: 11/08/16 12:30 Dose: Not Given Levothyroxine Sodium (Synthroid) 100 mcg PO DAILY@0630 [facility] Last Admin: 11/08/16 05:39 Dose: 100 mcg Lisinopril (Zestril) 5 mg PO DAILY [facility] Last Admin: 11/08/16 09:40 Dose: 5 mg Oxycodone HCl (Oxycodone Immediate Release Tab) 30 mg PO Q4 PRN PRN Reason: Pain, moderate (4-7) Last Admin: 11/08/16 13:56 Dose: 30 mg Rosuvastatin Calcium (Crestor) 40 mg PO HS [facility] Last Admin: 11/07/16 21:35 Dose: 40 mg Sitagliptin Phosphate (Januvia) 25 mg PO DAILY [facility] Last Admin: 11/08/16 09:34 Dose: 25 mg - Labs Labs: PT 18.8 SECONDS (9.7-12.2) H 11/07/16 02:45 INR 1.6 11/07/16 02:45 APTT 34 SECONDS (21-34) 11/07/16 02:45
--- NOTE | 2016-11-08 23:50 | CP.PCM.HP ---
History of Present Illness - History of Present Illness History of Present Illness: 51 y/p bm with thn, chf aicd, dm, hypothyroidism, sle, and he is regularly f/u in [facility], and he came with midsternal chest pain, dyspnea, cough, weakness, he was treated for leg ulcers in [facility] Present on Admission - Present on Admission Any Indicators Present on Admission: No History of DVT/PE: No History of Uncontrolled Diabetes: No Urinary Catheter: No Decubitus Ulcer Present: No Review of Systems - Review of Systems Systems not reviewed;Unavailable: Respiratory Distress - Constitutional Constitutional: Chills, Night Sweats, Weakness - EENT Nose/Mouth/Throat: Nasal Congestion, Nasal Discharge - Cardiovascular Cardiovascular: Dyspnea, Leg Edema - Respiratory Respiratory: Cough - Gastrointestinal Gastrointestinal: Bloating - Genitourinary Genitourinary: Urinary Urgency - Musculoskeletal Musculoskeletal: Arthralgias - Neurological Neurological: Weakness - Psychiatric Psychiatric: Anhedonia, Anxiety Past Patient History - Infectious Disease Hx of Infectious Diseases: None - Past Medical History & Family History Past Medical History?: Yes - Past Social History Smoking Status: Current Some Days Smoker - CARDIAC Hx Cardiac Disorders: Yes Hx Atrial Fibrillation: Yes Hx Congestive Heart Failure: Yes Hx Hypertension: Yes Hx Pacemaker: Yes (left upper chest) Hx Peripheral Edema: Yes - PULMONARY Hx Respiratory Disorders: Yes Hx Chronic Obstructive Pulmonary Disease (COPD): Yes Hx Emphysema: Yes Hx Pneumonia: Yes Hx Sleep Apnea: Yes - NEUROLOGICAL Hx Neurological Disorder: Yes Hx Transient Ischemic Attacks (TIA): Yes (Hx of Strokes-2008) - HEENT Hx HEENT Problems: No - RENAL Hx Chronic Kidney Disease: No - ENDOCRINE/METABOLIC Hx Endocrine Disorders: Yes Hx Hypothyroidism: Yes - HEMATOLOGICAL/ONCOLOGICAL Hx Blood Disorders: Yes Hx Blood Transfusions: Yes - INTEGUMENTARY Hx Dermatological Problems: No - MUSCULOSKELETAL/RHEUMATOLOGICAL Hx Musculoskeletal Disorders: No Hx Falls: No - GASTROINTESTINAL Hx Gastrointestinal Disorders: No - GENITOURINARY/GYNECOLOGICAL Hx Genitourinary Disorders: No - PSYCHIATRIC Hx Psychophysiologic Disorder: Yes Hx Anxiety: Yes Hx Substance Use: No - SURGICAL HISTORY Hx Surgeries: Yes Hx Coronary Artery Bypass Graft: Yes (2008) Hx Coronary Stent: Yes (3 Stents Prior to Quadruple Bypass) - ANESTHESIA Hx Anesthesia: Yes Hx Anesthesia Reactions: No Hx Malignant Hyperthermia: No Has any member of the family had a problem w/ anesthesia?: No Meds Home Medications: Home Medication List Medication Instructions Recorded Confirmed Type Nitroglycerin 0.4 mg SL Q5MIN PRN #14 tab.subl 11/08/16 Rx Promethazine [Phenergan Syrup] 6.25 mg PO Q6 PRN #8 oz 11/08/16 Rx Allergies/Adverse Reactions: Allergies Allergy/AdvReac Type Severity Reaction Status Date / Time No Known Drug Allergies Allergy n/a Verified 11/07/16 02:44 Physical Exam - Constitutional Appears: Non-toxic, No Acute Distress, Chronically Ill - Head Exam Head Exam: ATRAUMATIC, NORMAL INSPECTION, NORMOCEPHALIC - Eye Exam Eye Exam: EOMI, Normal appearance, PERRL Pupil Exam: NORMAL ACCOMODATION - ENT Exam ENT Exam: Mucous Membranes Moist, Normal Exam, Normal External Ear Exam, Normal Oropharynx - Neck Exam Neck exam: Positive for: Normal Inspection - Respiratory Exam Respiratory Exam: Decreased Breath Sounds, Rhonchi - Cardiovascular Exam Cardiovascular Exam: REGULAR RHYTHM, +S1, +S2 - GI/Abdominal Exam GI & Abdominal Exam: Normal Bowel Sounds, Soft - Extremities Exam Extremities exam: Positive for: normal inspection - Back Exam Back exam: NORMAL INSPECTION - Neurological Exam Neurological exam: Alert, CN II-XII Intact, Normal Gait, Oriented x3, Reflexes Normal - Psychiatric Exam Psychiatric exam: Anxious, Flat Affect - Skin Skin Exam: Dry, Intact (CHRONIC CHANGES IN LEG) Results - Vital Signs Recent Vital Signs: Last Vital Signs Temp 98.3 F 11/08/16 08:26 Pulse 86 11/08/16 08:26 Resp 20 11/08/16 08:26 BP 121/77 11/08/16 09:40 Pulse Ox 96 11/08/16 08:26 - Labs Result Diagrams: 11/07/16 03:02 11/07/16 03:02 Labs: Laboratory Results - last 24 hr 11/08/16 12:20 POC Glucose (mg/dL) 183 H Assessment & Plan (1) Atypical chest pain Assessment and Plan: R/O AMI, Status: Acute (2) Congestive heart failure Assessment and Plan: EXACERBATION, FOR DIURESIS Status: Acute Priority: High (3) Hypothyroid Status: Chronic Priority: Low (4) HTN (hypertension) Status: Chronic Priority: Medium (5) Lupus (systemic lupus erythematosus) Status: Chronic
--- NOTE | 2016-11-08 23:53 | CP.PCM.DIS ---
Provider - Provider Date of Admission: 11/07/16 04:10 Attending physician: Ousmane Amor MD Diagnosis - Discharge Diagnosis (1) Atypical chest pain Status: Acute (2) Congestive heart failure Status: Acute Priority: High (3) Hypothyroid Status: Chronic Priority: Low (4) HTN (hypertension) Status: Chronic Priority: Medium (5) Lupus (systemic lupus erythematosus) Status: Chronic Hospital Course - Lab Results Lab Results: Most Recent Lab Values WBC 9.4 K/uL (4.8-10.8) 11/07/16 03:02 RBC 4.16 Mil/uL (4.40-5.90) L 11/07/16 03:02 Hgb 10.4 g/dL (12.0-18.0) L 11/07/16 03:02 Hct 33.3 % (35.0-51.0) L 11/07/16 03:02 MCV 80.0 fL (80.0-94.0) 11/07/16 03:02 MCH 25.1 pg (27.0-31.0) L 11/07/16 03:02 MCHC 31.4 g/dL (33.0-37.0) L 11/07/16 03:02 RDW 19.2 % (11.5-14.5) H 11/07/16 03:02 Plt Count 199 K/uL (130-400) 11/07/16 03:02 MPV 8.1 fL (7.2-11.7) 11/07/16 03:02 Neut % (Auto) 76.1 % (50.0-75.0) H 11/07/16 03:02 Lymph % (Auto) 15.2 % (20.0-40.0) L 11/07/16 03:02 Schley % (Auto) 5.7 % (0.0-10.0) 11/07/16 03:02 Eos % (Auto) 2.0 % (0.0-4.0) 11/07/16 03:02 Baso % (Auto) 1.0 % (0.0-2.0) 11/07/16 03:02 Neut # 7.2 K/uL (1.8-7.0) H 11/07/16 03:02 Lymph # 1.4 K/uL (1.0-4.3) 11/07/16 03:02 Schley # 0.5 K/uL (0.0-0.8) 11/07/16 03:02 Eos # 0.2 K/uL (0.0-0.7) 11/07/16 03:02 Baso # 0.1 K/uL (0.0-0.2) 11/07/16 03:02 PT 18.8 SECONDS (9.7-12.2) H 11/07/16 02:45 INR 1.6 11/07/16 02:45 APTT 34 SECONDS (21-34) 11/07/16 02:45 Sodium 141 mmol/L (132-148) 11/07/16 03:02 Potassium 4.2 mmol/L (3.6-5.2) 11/07/16 03:02 Chloride 101 mmol/L (98-107) 11/07/16 03:02 Carbon Dioxide 24 mmol/L (22-30) 11/07/16 03:02 Anion Gap 19 (10-20) 11/07/16 03:02 BUN 62 mg/dL (9-20) H 11/07/16 03:02 Creatinine 2.0 MG/DL (0.8-1.5) H 11/07/16 03:02 Est GFR ( Amer) 43 11/07/16 03:02 Est GFR (Non-Af Amer) 36 11/07/16 03:02 POC Glucose (mg/dL) 183 mg/dL (65-110) H 11/08/16 12:20 Random Glucose 170 mg/dL (75-110) H 11/07/16 03:02 Calcium 8.8 mg/dl (8.6-10.4) 11/07/16 03:02 Total Bilirubin 0.6 mg/dL (0.2-1.3) 11/07/16 03:02 AST 12 U/L (17-59) L 11/07/16 03:02 ALT 16 U/L (21-72) L D 11/07/16 03:02 Alkaline Phosphatase 114 U/L (38-126) 11/07/16 03:02 Total Creatine Kinase 45 U/L (55-170) L 11/07/16 18:31 CK-MB (Mass) 0.51 ng/mL (0.0-3.38) 11/07/16 18:31 Troponin I 0.0240 ng/mL (0.00-0.120) 11/07/16 03:02 Troponin I, Quant < 0.0120 ng/mL (0.00-0.120) 11/07/16 18:31 Total Protein 8.5 g/dL (6.3-8.3) H 11/07/16 03:02 Albumin 4.0 g/dL (3.5-5.0) 11/07/16 03:02 Globulin 4.6 gm/dL (2.2-3.9) H 11/07/16 03:02 Albumin/Globulin Ratio 0.9 (1.0-2.1) L 11/07/16 03:02 - Hospital Course Hospital Course: ADMITTED WITH CHEST PAIN, SOB, COUGH AND TX WAS RULED OUT AND HE IS FOR DIC= SCHARGE HIS W/U BEEN NEGATIVE IN THE PAST Discharge Exam - Head Exam Head Exam: ATRAUMATIC, NORMAL INSPECTION, NORMOCEPHALIC - Eye Exam Eye Exam: EOMI, Normal appearance, PERRL Pupil Exam: NORMAL ACCOMODATION - ENT Exam ENT Exam: Mucous Membranes Moist, Normal Exam, Normal Oropharynx, TM's Normal Bilaterally - Neck Exam Neck exam: Normal Inspection - Respiratory Exam Respiratory Exam: Decreased Breath Sounds - Cardiovascular Exam Cardiovascular Exam: Gallop, REGULAR RHYTHM, +S1, +S2, Systolic Murmur - GI/Abdominal Exam GI & Abdominal Exam: Normal Bowel Sounds - Neurological Exam Neurological exam: Alert, CN II-XII Intact, Normal Gait, Oriented x3, Reflexes Normal - Psychiatric Exam Psychiatric exam: Anxious, Flat Affect - Skin Skin Exam: Intact (EDEMA, CH CHANHES) Discharge Plan - Discharge Medications Prescriptions: Nitroglycerin 0.4 mg SL Q5MIN PRN #14 tab.subl PRN Reason: chest pain Promethazine [Phenergan Syrup] 6.25 mg PO Q6 PRN #8 oz PRN Reason: Cough - Follow Up Plan Condition: GUARDED Disposition: HOME/ ROUTINE Instructions: Chest Pain (DC) Additional Instructions: FOLLOW UP WITH DR. AMOR IN THE OFFICE WITHIN 1-2 WEEKS--CALL FOR APPT TIME. MAKE AN APPT WITH PODIATRY FOR YOUR LEG. FEEL FREE TO MAKE AN APPT WITH DR. GROSS. YOU CAN ALSO MAKE AN APPT TO SEE DR. GROSS IN [facility]: [address], [id number] TAKE YOUR MEDICATIONS USUAL.. REMEMBER, THE NITROGLYCERIN TAKE 1 TABLET EVERY 5 MINUTES ONLY IF YOU HAVE CHEST PAIN (ONLY TAKE MAX OF 3 DOSES). Referrals: Burke Bernstein MD [Staff Provider] - Ousmane Amor MD [Staff Provider] - Santi Gross DPM [Staff Provider] -
== END 2016-11-08 16:30 | disposition home or self-care (01) ==
LOC: C.ER 02:23 → C.6T 04:10
PROVIDERS: ADMIT Internal Medicine; ATTEND Internal Medicine
DX: R07.89 Other chest pain (principal); E03.9 Hypothyroidism, unspecified; M32.9 Systemic lupus erythematosus, unspecified; I25.2 Old myocardial infarction; J44.9 Chronic obstructive pulmonary disease, unspecified; I13.0 Hypertensive heart and chronic kidney disease with heart failure and stage 1 through stage 4 chronic kidney disease, or unspecified chronic kidney disease; I50.9 Heart failure, unspecified; N18.9 Chronic kidney disease, unspecified; E11.22 Type 2 diabetes mellitus with diabetic chronic kidney disease; E66.01 Morbid (severe) obesity due to excess calories; G47.30 Sleep apnea, unspecified; D64.9 Anemia, unspecified; I48.0 Paroxysmal atrial fibrillation; Z68.42 Body mass index [BMI] 45.0-49.9, adult; Z95.1 Presence of aortocoronary bypass graft; Z86.73 Personal history of transient ischemic attack (TIA), and cerebral infarction without residual deficits; Z95.810 Presence of automatic (implantable) cardiac defibrillator; Z95.5 Presence of coronary angioplasty implant and graft
CPT/HCPCS: 36415; 71010; 80053; 82550; 82553; 82948; 84484; 85025; 85610; 85730; 93005; 99285; G0378

== ENCOUNTER 2016-12-16 13:58 | Observation (INO) | payer MEDICARE, OTHER ==
[2016-12-16 13:58] VITALS: BMI 44.0
--- NOTE | 2016-12-16 14:33 | C.PDOC ---
History Of Present Illness 51 y/o M c PMHx CHF, pacemaker, atrial fibrillation p/w chest pain x 1 hour. Pain is midsternal, began at rest, gradually improving, associated with nausea and shortness of breath similar to previous CHF exacerbations. Denies fever, cough, vomiting, diaphoresis. Time Seen by Provider: 12/16/16 14:20 Chief Complaint (Nursing): Chest Pain Past Medical History Vital Signs: Last Vital Signs Temp 97.8 F 12/16/16 14:11 Pulse 80 12/16/16 14:11 Resp 18 12/16/16 14:11 BP 104/64 12/16/16 14:11 Pulse Ox 100 12/16/16 15:14 - Medical History PMH: Anxiety, Atrial Fibrillation, Back Problems, CAD, Cardia Arrhythmia (AFIB) , CHF, COPD, Diabetes, Deep Vein Thrombosis, Emphysema, Graves' Disease, HTN, Hypercholesterolemia, Hypothyroidism, Peripheral Edema, Pneumonia, Sleep Apnea, TIA (Hx of Strokes-2008) Denies: Chronic Kidney Disease Surgical History: CABG (2008), Coronary Stent (3 Stents Prior to Quadruple Bypass), Pacemaker (left upper chest) - [employer] Procedures ASSISTANCE WITH RESPIRATORY VENTILATION, 24-96 HRS, CPAP (10/15/15) INJECT/INFUSE NEC (10/09/12) Family History: States: Unknown Family Hx - Social History Hx Tobacco Use: Yes Hx Alcohol Use: No Hx Substance Use: No - Immunization History Hx Tetanus Toxoid Vaccination: No Hx Influenza Vaccination: No Hx Pneumococcal Vaccination: Yes Review Of Systems Except As Marked, All Systems Reviewed And Found Negative. Constitutional: Negative for: Fever Respiratory: Negative for: Cough Physical Exam - Physical Exam Additional Physical Exam Comments: Constitutional: No acute distress. Head: Normocephalic. Atraumatic. Eyes: PERRL. ENT: Moist mucous membranes. Neck: Supple. Cardiovascular: Regular rate. Radial pulse 2+ bilaterally. Chest: No tenderness. Respiratory: Clear to auscultation bilaterally. GI: Soft. Nontender. Nondistended. Back: No CVA tenderness. Musculoskeletal: No tenderness or swelling of extremities. Skin: No rash. Neurologic: Alert, no focal deficit. ED Course And Treatment - Laboratory Results Result Diagrams: 12/16/16 14:45 12/16/16 14:45 O2 Sat by Pulse Oximetry: 100 (RA) Pulse Ox Interpretation: Normal Medical Decision Making Medical Decision Making: EKG atrial sensed ventricular paced rhythm, 78 bpm, no ST elevations, no change from previous. ASA administered. FINDINGS: LUNGS: No active pulmonary disease. PLEURA: No significant pleural effusion identified, no pneumothorax apparent. CARDIOVASCULAR: Cardiomegaly appears stable. No pulmonary vascular derangement is appreciated this time. Implanted defibrillator/pacemaker again evident. Sternotomy wires appear stable. OSSEOUS STRUCTURES: No significant abnormalities. VISUALIZED UPPER ABDOMEN: Normal. OTHER FINDINGS: None. IMPRESSION: Stable cardiomegaly. No interval acute cardiopulmonary disease appreciated at this time. Enzymes negative. Dr. Mendez accepts patient to his service on telemetry for cardiac observation. Disposition Discussed With : Camila Mendez Doctor Will See Patient In The: Hospital - Disposition Disposition: HOSPITALIZED Disposition Time: 15:32 Condition: FAIR Forms: [facility] (Martiniquais) - POA Core Measure Indicators: Chest Pain - Clinical Impression Clinical Impression: Chest pain
[2016-12-16 14:52] LABS: BASO # 0.1 K/uL (0.0-0.2); BASO % 0.9 % (0.0-2.0); EOS # 0.1 K/uL (0.0-0.7); EOS % 2.4 % (0.0-4.0); HEMATOCRIT 30.6 % (35.0-51.0); LYMPH # 1.6 K/uL (1.0-4.3); MEAN CELL VOLUME 80.2 fL (80.0-94.0); MEAN CORPUSCULAR HEMOGLOBIN 25.2 pg (27.0-31.0); MEAN CORPUSCULAR HGB CONC 31.4 g/dL (33.0-37.0); MEAN PLATELET VOLUME 8.1 fL (7.2-11.7); MONO # 0.4 K/uL (0.0-0.8); RED CELL DISTRIBUTION WIDTH 18.8 % (11.5-14.5); WHITE BLOOD COUNT 6.4 K/uL (4.8-10.8)
--- NOTE | 2016-12-16 14:57 | RAD ---
HISTORY: cp COMPARISON: Portable chest 11/07/2016. FINDINGS: LUNGS: No active pulmonary disease. PLEURA: No significant pleural effusion identified, no pneumothorax apparent. CARDIOVASCULAR: Cardiomegaly appears stable. No pulmonary vascular derangement is appreciated this time. Implanted defibrillator/pacemaker again evident. Sternotomy wires appear stable. OSSEOUS STRUCTURES: No significant abnormalities. VISUALIZED UPPER ABDOMEN: Normal. OTHER FINDINGS: None. IMPRESSION: Stable cardiomegaly. No interval acute cardiopulmonary disease appreciated at this time.
[2016-12-16 15:08] LABS: CHLORIDE 102 mmol/L (98-107)
[2016-12-16 15:09] LABS: POTASSIUM 3.7 mmol/L (3.6-5.2); SODIUM 138 mmol/L (132-148)
[2016-12-16 15:12] LABS: ALB/GLOB RATIO 0.7 (1.0-2.1); ALKALINE PHOSPHATASE 124 U/L (38-126); ALT/SGPT 28 U/L (21-72); AST/SGOT 16 U/L (17-59); BILIRUBIN,TOTAL 0.3 mg/dL (0.2-1.3); BLOOD UREA NITROGEN 24 mg/dL (9-20); CALCIUM 8.6 mg/dl (8.6-10.4); CARBON DIOXIDE 26 mmol/L (22-30); GFR AFRICAN-AMERICAN > 60; GLUCOSE,RANDOM 144 mg/dL (75-110); TOTAL PROTEIN 8.3 g/dL (6.3-8.3)
[2016-12-16 16:59] VITALS: RESP 20
[2016-12-16] MEDS ORDERED: Promethazine 6.25 MG/5 ML CUP PO PRN (17:07)
[2016-12-16] MEDS ORDERED: Digoxin 125 mcg (0.125 mg) Tab PO SCH (18:00)
[2016-12-16 18:03] VITALS: PULSE 82
[2016-12-16] MEDS: oxyCODONE 30 mg Immediate Release Tab PO PRN ×2 (18:39→23:10)
--- NOTE | 2016-12-16 19:12 | CP.PCM.CON ---
History of Present Illness - History of Present Illness History of Present Illness: I was asked to see patient by Dr Mendez. Patient is a 51 year old male with PMH HTN, hypercholesterolemia, CAD s/p CABG, AICD ([employer]) who presents with dyspnea. Patient has a history of ischemic cardiomyopathy and but has not had recent follow up. The patient reports dyspnea and lower extremity edema. Symptoms are progressive. He denies syncope Review of Systems - Constitutional Constitutional: absent: As Per HPI, Anorexia, Chills, Daytime Sleepiness, Excessive Sweating, Fatigue, Fever, Frequent Falls, Headache, Increased Appetite , Lethargy, Malaise, Night Sweats, Snoring, Sleep Apnea, Weight Gain, Weight Loss, Weakness, Other - EENT Eyes: absent: As Per HPI, Blind Spots, Blurred Vision, Change in Vision, Decreased Night Vision, Diplopia, Discharge, Dry Eye, Exophthalmos, Floaters, Irritation, Itchy Eyes, Loss of Peripheral Vision, Pain, Photophobia, Requires Corrective Lenses, Sees Flashes, Spots in Vision, Tunnel Vision, Other Visual Disturbances, Loss of Vision, Other Ears: absent: As Per HPI, Decreased Hearing, Ear Discharge, Ear Pain, Tinnitus, Abnormal Hearing, Disequilibrium, Dizziness, Other Nose/Mouth/Throat: absent: As Per HPI, Epistaxis, Nasal Congestion, Nasal Discharge, Nasal Obstruction, Nasal Trauma, Nose Pain, Post Nasal Drip, Sinus Pain, Sinus Pressure, Bleeding Gums, Change in Voice, Dental Pain, Dry Mouth, Dysphagia, Halitosis, Hoarsness, Lip Swelling, Mouth Lesions, Mouth Pain, Odynophagia, Sore Throat, Throat Swelling, Tongue Swelling, Facial Pain, Neck Pain, Neck Mass, Other - Cardiovascular Cardiovascular: absent: As Per HPI, Acrocyanosis, Chest Pain, Chest Pain at Rest , Chest Pain with Activity, Claudication, Diaphoresis, Dyspnea, Dyspnea on Exertion, Edema, Irregular Heart Rhythm, Pain Radiating to Arm/Neck/Jaw, Leg Edema, Leg Ulcers, Lightheadedness, Orthopnea, Palpitations, Paroxysmal Nocturnal Dyspnea, Pedal Edema, Radiating Pain, Rapid Heart Rate, Slow Heart Rate, Syncope, Other - Respiratory Respiratory: absent: As Per HPI, Cough, Dyspnea, Hemoptysis, Dyspnea on Exertion , Wheezing, Snoring, Stridor, Pain on Inspiration, Chest Congestion, Excessive Mucous Production, Change in Mucous Color, Pain with Coughing, Other - Gastrointestinal Gastrointestinal: absent: As Per HPI, Abdominal Pain, Belching, Bloating, Change in Bowel Habits, Change in Stool Character, Coffee Ground Emesis, Constipation, Cramping, Diarrhea, Dyspepsia, Dysphagia, Early Satiety, Excessive Flatus, Fecal Incontinence, Heartburn, Hematemesis, Hematochezia, Loose Stools, Melena, Nausea, Odynophagia, Temesmus, Vomiting, Other - Genitourinary Genitourinary: absent: As Per HPI, Change in Urinary Stream, Difficulty Urinating, Dysuria, Flank Pain, Hematuria, Pyuria, Nocturia, Urinary Incontinence, Urinary Frequency, Urinary Hesitance, Urinary Urgency, Voiding Freq/Small Amts, Freq UTI, Hx Renal/Bladder Calculi, Hx /Renal Surgery, Bladder Distension, Other - Musculoskeletal Musculoskeletal: absent: As Per HPI, Abnormal Gait, Arthralgias, Atrophy, Back Pain, Deformity, Joint Swelling, Limited Range of Motion, Loss of Height, Muscle Cramps, Muscle Weakness, Myalgias, Neck Pain, Numbness, Radiating Pain into Limb, Stiffness, Tingling, Other - Integumentary Integumentary: absent: As Per HPI, Acne, Alopecia, Bleeding Lesions, Change in Hair, Change in Nails, Change in Pigmentation, Changing Lesions, Dry Skin, Erythema, Furuncle, Hirsutism, Lesions, New Lesions, Non-Healing Lesions, Photosensitivity, Pruritus, Rash, Skin Pain, Skin Ulcer, Sores, Striae, Swelling , Unusual Bruising, Wounds, Jaundice, Other - Neurological Neurological: absent: As Per HPI, Abnormal Gait, Abnormal Hearing, Abnormal Movements, Abnormal Speech, Behavioral Changes, Burning Sensations, Confusion, Convulsions, Disequilibrium, Dizziness, Numbness, Focal Weakness, Frequent Falls , Headaches, Lack of Coordination, Loss of Vision, Memory Loss, Paresthesias, Radicular Pain, Restless Legs, Sensory Deficit, Syncope, Tingling, Tremor, Vertigo, Weakness, Other Visual Disturbances, Other - Psychiatric Psychiatric: absent: As Per HPI, Abnormal Sleep Pattern, Anhedonia, Anxiety, Auditory Hallucinations, Behavioral Changes, Change in Appetite, Change in Libido, Confusion, Depression, Difficulty Concentrating, Hallucinations, Homicidal Ideation, Hopelessness, Irritability, Memory Loss, Mood Swings, Panic Attacks, Paranoia, Suicidal Ideation, Visual Hallucinations, Tactile Hallucinations, Other - Endocrine Endocrine: absent: As Per HPI, Change in Body Appearance, Change in Libido, Cold Intolorance, Deepening of Voice, Excessive Sweating, Fatigue, Flushing, Heat Intolorance, Increase in Ring/Shoe/Hat Size, Palpitations, Polydipsia, Polyphagia, Polyuria, Other - Hematologic/Lymphatic Hematologic: absent: As Per HPI, Easy Bleeding, Easy Bruising, Lymphadenopathy, Other Past Patient History - Infectious Disease Hx of Infectious Diseases: None - Past Medical History & Family History Past Medical History?: Yes - Past Social History Smoking Status: Light Smoker < 10 Cigarettes Daily - CARDIAC Hx Atrial Fibrillation: Yes Hx Cardia Arrhythmia: Yes (AFIB) Hx Congestive Heart Failure: Yes Hx Hypercholesterolemia: Yes Hx Hypertension: Yes Hx Pacemaker: Yes (left upper chest) Hx Peripheral Edema: Yes - PULMONARY Hx Chronic Obstructive Pulmonary Disease (COPD): Yes Hx Emphysema: Yes Hx Pneumonia: Yes Hx Sleep Apnea: Yes - NEUROLOGICAL Hx Transient Ischemic Attacks (TIA): Yes (Hx of Strokes-2008) - HEENT Hx HEENT Problems: No - RENAL Hx Chronic Kidney Disease: No - ENDOCRINE/METABOLIC Hx Hypothyroidism: Yes - HEMATOLOGICAL/ONCOLOGICAL Hx Blood Disorders: Yes Hx Blood Transfusions: Yes - INTEGUMENTARY Hx Dermatological Problems: No - MUSCULOSKELETAL/RHEUMATOLOGICAL Hx Musculoskeletal Disorders: No Hx Falls: No - GASTROINTESTINAL Hx Gastrointestinal Disorders: No - GENITOURINARY/GYNECOLOGICAL Hx Genitourinary Disorders: No - PSYCHIATRIC Hx Anxiety: Yes Hx Substance Use: No - SURGICAL HISTORY Hx Coronary Artery Bypass Graft: Yes (2008) Hx Coronary Stent: Yes (3 Stents Prior to Quadruple Bypass) - ANESTHESIA Hx Anesthesia: Yes Hx Anesthesia Reactions: No Hx Malignant Hyperthermia: No Meds Allergies/Adverse Reactions: Allergies Allergy/AdvReac Type Severity Reaction Status Date / Time No Known Drug Allergies Allergy n/a Verified 12/16/16 14:03 - Medications Medications: Current Medications Apixaban (Eliquis) 5 mg PO Q12 [facility] Carvedilol (Coreg) 25 mg PO BID [facility] Last Admin: 12/16/16 18:03 Dose: 25 mg Clopidogrel Bisulfate (Plavix) 75 mg PO DAILY [facility] Digoxin (Lanoxin) 0.125 mg PO DAILY@1800 [facility] Last Admin: 12/16/16 18:03 Dose: 0.125 mg Enoxaparin Sodium (Lovenox) 40 mg SC DAILY [facility] Ferrous Sulfate (Feosol) 325 mg PO DAILY [facility] Furosemide (Lasix) 40 mg PO BID [facility] Last Admin: 12/16/16 18:03 Dose: 40 mg Hydroxychloroquine Sulfate (Plaquenil) 200 mg PO BID [facility] Last Admin: 12/16/16 18:03 Dose: 200 mg Insulin Aspart (Novolog) 0 unit SC ACHS [facility] PRN Reason: Protocol Levothyroxine Sodium (Synthroid) 100 mcg PO DAILY@0630 [facility] Lisinopril (Zestril) 5 mg PO DAILY [facility] Oxycodone HCl (Oxycodone Immediate Release Tab) 30 mg PO Q4H PRN PRN Reason: Pain, Mild (1-3) Last Admin: 12/16/16 18:39 Dose: 30 mg Promethazine HCl (Phenergan Syrup) 6.25 mg PO Q6 PRN PRN Reason: Cough Rosuvastatin Calcium (Crestor) 40 mg PO HS [facility] Sitagliptin Phosphate (Januvia) 25 mg PO DAILY [facility] Physical Exam - Constitutional Appears: Non-toxic - Head Exam Head Exam: NORMAL INSPECTION - Eye Exam Eye Exam: Normal appearance - ENT Exam ENT Exam: Mucous Membranes Moist - Neck Exam Neck exam: Positive for: Normal Inspection - Respiratory Exam Respiratory Exam: NORMAL BREATHING PATTERN - Cardiovascular Exam Cardiovascular Exam: REGULAR RHYTHM - GI/Abdominal Exam GI & Abdominal Exam: Normal Bowel Sounds - Rectal Exam Rectal Exam: Deferred - Extremities Exam Extremities exam: Positive for: pedal edema - Back Exam Back exam: NORMAL INSPECTION - Neurological Exam Neurological exam: Alert, Oriented x3 - Psychiatric Exam Psychiatric exam: Normal Affect - Skin Skin Exam: Normal Color Results - Vital Signs Recent Vital Signs: Last Vital Signs Temp 97.9 F 12/16/16 16:58 Pulse 82 12/16/16 16:58 Resp 20 12/16/16 16:58 BP 151/100 H 12/16/16 18:03 Pulse Ox 99 12/16/16 16:58 - Labs Result Diagrams: 12/16/16 14:45 12/16/16 14:45 Labs: Laboratory Results - last 24 hr 12/16/16 12/16/16 14:45 14:45 WBC 6.4 RBC 3.82 L Hgb 9.6 L Hct 30.6 L MCV 80.2 MCH 25.2 L MCHC 31.4 L RDW 18.8 H Plt Count 189 MPV 8.1 Neut % (Auto) 65.7 Lymph % (Auto) 25.0 Levy % (Auto) 6.0 Eos % (Auto) 2.4 Baso % (Auto) 0.9 Neut # 4.2 Lymph # 1.6 Levy # 0.4 Eos # 0.1 Baso # 0.1 Sodium 138 Potassium 3.7 Chloride 102 Carbon Dioxide 26 Anion Gap 13 BUN 24 H Creatinine 1.1 Est GFR ( Amer) > 60 Est GFR (Non-Af Amer) > 60 Random Glucose 144 H Calcium 8.6 Total Bilirubin 0.3 AST 16 L ALT 28 Alkaline Phosphatase 124 Total Creatine Kinase 62 CK-MB (Mass) 0.56 Troponin I < 0.0120 NT-Pro-B Natriuret Pep 1430 H Total Protein 8.3 Albumin 3.5 Globulin 4.9 H Albumin/Globulin Ratio 0.7 L - EKG Data EKG Interpreted by: Myself Assessment & Plan (1) Cardiomyopathy Assessment and Plan: will need assessment of LV function. will schedule echocardiogram Status: Active (2) AICD (automatic cardioverter/defibrillator) present Assessment and Plan: will interrogate device Status: Acute (3) CHF (congestive heart failure) Assessment and Plan: diuresis. will reevalaute Status: Acute
[2016-12-16] MEDS: (Novolog) Insulin Aspart, Recombinant 100 u/ml 10 ml vial SC SCH (21:54)
[2016-12-16 23:57] VITALS: TEMP 97.7; O2SAT 100
[2016-12-17 04:35] VITALS: PULSE 75
[2016-12-17] MEDS: oxyCODONE 30 mg Immediate Release Tab PO PRN ×2 (05:11→09:55)
[2016-12-17] MEDS ORDERED: Levothyroxine 100 MCG TAB PO SCH (06:30)
--- NOTE | 2016-12-17 07:34 | CP.PCM.PN ---
Subjective - Date & Time of Evaluation Date of Evaluation: 12/17/16 Time of Evaluation: 10:00 - Subjective Subjective: Dr. Mendez note: Patient is seen in room. Patient says he came to the hospital because of chest pain and he has had multiple admissions for chest pain in the past. He says the pain was going on for a few days right side of his chest which was sharp and stabbing in nature but not radiating, some shortness of breath, but no nausea, vomiting, palpitations, or cough. Objective - Vital Signs/Intake and Output Vital Signs (last 24 hours): Temp Pulse Resp BP Pulse Ox 97.7 F 75 20 167/108 H 100 12/16/16 23:11 12/17/16 04:33 12/16/16 23:11 12/17/16 05:13 12/16/16 23:11 - Medications Medications: Current Medications Apixaban (Eliquis) 5 mg PO Q12 [facility] Last Admin: 12/16/16 21:16 Dose: 5 mg Carvedilol (Coreg) 25 mg PO BID [facility] Last Admin: 12/16/16 18:03 Dose: 25 mg Clopidogrel Bisulfate (Plavix) 75 mg PO DAILY [facility] Digoxin (Lanoxin) 0.125 mg PO DAILY@1800 [facility] Last Admin: 12/16/16 18:03 Dose: 0.125 mg Ferrous Sulfate (Feosol) 325 mg PO DAILY [facility] Furosemide (Lasix) 40 mg PO BID [facility] Last Admin: 12/16/16 18:03 Dose: 40 mg Hydroxychloroquine Sulfate (Plaquenil) 200 mg PO BID [facility] Last Admin: 12/16/16 18:03 Dose: 200 mg Influenza Virus Vaccine (Fluzone (36 Months - 7 Yrs)) 45 mcg IM .ONCE ONE Stop: 12/17/16 14:01 Insulin Aspart (Novolog) 0 unit SC ACHS [facility] PRN Reason: Protocol Last Admin: 12/16/16 21:54 Dose: Not Given Levothyroxine Sodium (Synthroid) 100 mcg PO DAILY@0630 [facility] Last Admin: 12/17/16 05:33 Dose: 100 mcg Lisinopril (Zestril) 5 mg PO DAILY [facility] Oxycodone HCl (Oxycodone Immediate Release Tab) 30 mg PO Q4H PRN PRN Reason: Pain, Mild (1-3) Last Admin: 12/17/16 05:11 Dose: 30 mg Pantoprazole Sodium (Protonix Ec Tab) 20 mg PO DAILY [facility] Promethazine HCl (Phenergan Syrup) 6.25 mg PO Q6 PRN PRN Reason: Cough Rosuvastatin Calcium (Crestor) 40 mg PO HS [facility] Last Admin: 12/16/16 21:16 Dose: 40 mg Sitagliptin Phosphate (Januvia) 25 mg PO DAILY [facility] - Labs Labs: 12/16/16 14:45 12/16/16 14:45 - Constitutional Appears: Non-toxic, No Acute Distress - Eye Exam Pupil Exam: NORMAL ACCOMODATION - ENT Exam ENT Exam: Normal Exam - Respiratory Exam Respiratory Exam: Clear to Ausculation Bilateral, Rales. absent: Rhonchi, Wheezes - Cardiovascular Exam Cardiovascular Exam: REGULAR RHYTHM, RRR, +S1, +S2. absent: Gallop, Rubs - GI/Abdominal Exam GI & Abdominal Exam: Soft, Normal Bowel Sounds. absent: Tenderness - Extremities Exam Extremities Exam: Normal Inspection, Pedal Edema - Neurological Exam Neurological Exam: Alert - Psychiatric Exam Psychiatric exam: Anxious - Skin Skin Exam: Normal Color, Warm Assessment and Plan (1) Chest pain Assessment & Plan: Patient was discharged home per Dr. Mendez, he will follow up with his PMD for outpatient stress test and echo. Status: Acute
[2016-12-17] MEDS: (Novolog) Insulin Aspart, Recombinant 100 u/ml 10 ml vial SC SCH ×2 (08:10→11:30)
[2016-12-17 09:53] VITALS: BP 182/109
[2016-12-17] MEDS ORDERED: Pantoprazole 20 mg EC Tab PO SCH (10:00)
[2016-12-17] MEDS ORDERED: Enoxaparin 40 mg Syringe SC SCH (10:00)
--- NOTE | 2016-12-17 13:39 | CARD ---
APPROVED REPORT EKG Measurement Heart [id number] <Conclusion> Atrial-sensed ventricular-paced rhythm with prolonged AV conduction Abnormal ECG
[2016-12-17] MEDS ORDERED: Influenza Virus Vaccine 45 mcg/0.5 ml Syr (36 months - 7 yrs) IM ONE (14:00)
== END 2016-12-17 14:57 | disposition home or self-care (01) ==
LOC: C.ER 13:58 → C.9E 15:31 → C.6T 16:22
PROVIDERS: ADMIT Internal Medicine Pulmonary Disease; ATTEND Internal Medicine Pulmonary Disease
DX: I25.10 Atherosclerotic heart disease of native coronary artery without angina pectoris (principal); I25.5 Ischemic cardiomyopathy; I48.91 Unspecified atrial fibrillation; I50.9 Heart failure, unspecified; J44.9 Chronic obstructive pulmonary disease, unspecified; Z87.891 Personal history of nicotine dependence; J43.9 Emphysema, unspecified; E03.9 Hypothyroidism, unspecified; E11.9 Type 2 diabetes mellitus without complications
CPT/HCPCS: 71010; 80053; 82550; 82553; 83880; 84484; 85025; 93005; 99284; G0378

== ENCOUNTER 2017-01-17 22:00 | Observation (INO) | payer MEDICARE, OTHER ==
[2017-01-17 22:00] VITALS: BMI 44.0
[2017-01-17] MEDS ORDERED: Aspirin 325 mg EC Tablets PO STA (22:16)
[2017-01-17] MEDS ORDERED: Aspirin 325 mg EC Tablets PO ONE (22:22)
[2017-01-17 22:51] LABS: BASO # 0.1 K/uL (0.0-0.2); BASO % 0.8 % (0.0-2.0); EOS # 0.2 K/uL (0.0-0.7); LYMPH # 1.6 K/uL (1.0-4.3); LYMPH % 18.3 % (20.0-40.0); MEAN CELL VOLUME 81.2 fL (80.0-94.0); MEAN CORPUSCULAR HEMOGLOBIN 25.4 pg (27.0-31.0); MEAN CORPUSCULAR HGB CONC 31.3 g/dL (33.0-37.0); MEAN PLATELET VOLUME 8.9 fL (7.2-11.7); MONO # 0.6 K/uL (0.0-0.8); MONO % 6.9 % (0.0-10.0); RED CELL DISTRIBUTION WIDTH 17.6 % (11.5-14.5); WHITE BLOOD COUNT 8.6 K/uL (4.8-10.8)
[2017-01-17 23:04] LABS: ALB/GLOB RATIO 0.9 (1.0-2.1); ALCOHOL SERUM < 10 mg/dl (0-10); ALKALINE PHOSPHATASE 162 U/L (38-126); ALT/SGPT 30 U/L (21-72); AST/SGOT 14 U/L (17-59); BILIRUBIN,TOTAL 0.6 mg/dL (0.2-1.3); BLOOD UREA NITROGEN 47 mg/dL (9-20); CARBON DIOXIDE 25 mmol/L (22-30); CHLORIDE 99 mmol/L (98-107); GFR AFRICAN-AMERICAN > 60; GLUCOSE,RANDOM 179 mg/dL (75-110); POTASSIUM 4.2 mmol/L (3.6-5.2); SODIUM 135 mmol/L (132-148); TOTAL PROTEIN 7.9 g/dL (6.3-8.3)
--- NOTE | 2017-01-17 23:31 | C.PDOC ---
History Of Present Illness 51 year old male with multiple cardiac Hx presents to the ED c/o chest pain that he describes as stabbing. Patient has been admitted multiple times on November 07, November 30 and . Time Seen by Provider: 01/17/17 22:14 Chief Complaint (Nursing): Chest Pain History Per: Patient History/Exam Limitations: no limitations Onset/Duration Of Symptoms: Hrs Current Symptoms Are (Timing): Still Present Quality: Other (Stabbing) Associated Symptoms: denies: Nausea, Diaphoresis, Syncope Modifying Factors: None Exacerbating Factors: None Recent travel outside of the [place]: No Additional History Per: Patient Past Medical History Reviewed: Historical Data, Nursing Documentation, Vital Signs Vital Signs: Last Vital Signs Temp 98.4 F 01/17/17 22:06 Pulse 98 H 01/17/17 22:06 Resp 20 01/17/17 22:06 BP 105/65 01/17/17 22:06 Pulse Ox 100 01/17/17 23:36 - Medical History PMH: Anxiety, Atrial Fibrillation, Back Problems, CAD, Cardia Arrhythmia (AFIB) , CHF, COPD, Diabetes, Deep Vein Thrombosis, Emphysema, Graves' Disease, HTN, Hypercholesterolemia, Hypothyroidism, Peripheral Edema, Pneumonia, Sleep Apnea, TIA (Hx of Strokes-2008) Denies: Chronic Kidney Disease Surgical History: CABG (2008), Coronary Stent (3 Stents Prior to Quadruple Bypass), Pacemaker (left upper chest) - [facility] Procedures ASSISTANCE WITH RESPIRATORY VENTILATION, 24-96 HRS, CPAP (10/15/15) INJECT/INFUSE NEC (10/09/12) Family History: States: Unknown Family Hx - Social History Hx Tobacco Use: Yes Hx Alcohol Use: No Hx Substance Use: No - Immunization History Hx Tetanus Toxoid Vaccination: No Hx Influenza Vaccination: No Hx Pneumococcal Vaccination: Yes Review Of Systems Constitutional: Negative for: Fever, Chills Cardiovascular: Positive for: Chest Pain. Negative for: Palpitations Respiratory: Negative for: Cough, Shortness of Breath Gastrointestinal: Negative for: Nausea, Vomiting, Abdominal Pain Neurological: Negative for: Weakness, Numbness Physical Exam - Physical Exam Appears: No Acute Distress, Other (morbidly obese) Skin: Normal Color, Warm, Dry Head: Atraumatic, Normacephalic Oral Mucosa: Moist Neck: Normal ROM, Supple Chest: Symmetrical, No Tenderness (No digital pain), Other (defibrillator in left chest) Cardiovascular: Rhythm Regular, No Murmur Respiratory: Normal Breath Sounds, No Rales, No Rhonchi, No Wheezing Gastrointestinal/Abdominal: Soft, No Tenderness Extremity: Normal ROM, Pedal Edema (grotesque right > left baseline), No Calf Tenderness, No Swelling Neurological/Psych: Oriented x3, Normal Speech, Normal Cognition Gait: Steady ED Course And Treatment - Laboratory Results Result Diagrams: 01/17/17 22:48 01/17/17 22:48 Lab Interpretation: Abnormal (dig subtheraputic) ECG: Interpreted By Me ECG Rhythm: Sinus Rhythm, V Paced (A-sensed) ECG Interpretation: Normal, No Changes From Prior Rate From EC O2 Sat by Pulse Oximetry: 100 (On RA) Pulse Ox Interpretation: Normal - Radiology CXR: Interpreted by Me CXR Interpretation: Yes: No Acute Disease, Heart Size, Other (+ mild CHF) Progress Note: dig 0.5 mg PO given for sub-theraputic dig level. lasix IV Reevaluation Time: 23:58 Reassessment Condition: Improved - Physician Consult Information Outcome Of Conversation: 2230 and 0000 d/w PMD Dr. Karma brantley to Tele obs. Appreciates dig re-load started. Medical Decision Making Medical Decision Making: Plan: * EKG, CXR ordered * Blood work ordered * UA ordered Disposition Doctor Will See Patient In The: Hospital Counseled Patient/Family Regarding: Studies Performed, Diagnosis - Disposition Disposition: HOSPITALIZED Disposition Time: 00:00 Condition: GOOD Forms: [facility] (Austrian) - Clinical Impression Clinical Impression: Chest pain, CHF exacerbation - Scribe Statement The provider has reviewed the documentation as recorded by the Scribchris Seymour All medical record entries made by the Scribe were at my direction and personally dictated by me. I have reviewed the chart and agree that the record accurately reflects my personal performance of the history, physical exam, medical decision making, and the department course for this patient. I have also personally directed, reviewed, and agree with the discharge instructions and disposition.
[2017-01-17] MEDS ORDERED: Digoxin 250 mcg (0.25 mg) Tab PO STA (23:51)
[2017-01-18] MEDS ORDERED: Digoxin 250 mcg (0.25 mg) Tab ONE (00:23)
[2017-01-18 01:38] LABS: URINE BILIRUBIN NEGATIVE (NEGATIVE); URINE COLOR Straw (YELLOW); URINE GLUCOSE (UA) NORMAL (Normal); URINE KETONE NEGATIVE (NEGATIVE); URINE LEUKOCYTE ESTERASE NEG Leu/uL (Negative); URINE PROTEIN NEGATIVE (NEGATIVE); URINE UROBILINOGEN NORMAL mg/dL (0.2-1.0)
[2017-01-18 01:47] LABS: URINE BLOOD NEGATIVE (NEGATIVE)
[2017-01-18] MEDS: oxyCODONE 30 mg Immediate Release Tab PO PRN ×5 (02:58→22:05)
[2017-01-18] MEDS ORDERED: oxyCODONE 30 mg Immediate Release Tab ONE (02:58)
[2017-01-18 03:04] VITALS: RESP 20
--- NOTE | 2017-01-18 08:06 | RAD ---
PROCEDURE: CHEST RADIOGRAPH, 1 VIEW HISTORY: Shortness of breath COMPARISON: 12/16/2016 FINDINGS: LUNGS: Mild venous congestion. Right hilar prominence. PLEURA: No pneumothorax or pleural fluid seen. CARDIOVASCULAR: Cardiomegaly. Left-sided pacemaker. Status post median sternotomy. OSSEOUS STRUCTURES: Degenerative changes in the spine and shoulders. VISUALIZED UPPER ABDOMEN: Normal. OTHER FINDINGS: None. IMPRESSION: Mild venous congestion. Right hilar prominence. Cardiomegaly. Left-sided pacemaker. Status post median sternotomy.
--- NOTE | 2017-01-18 12:53 | CON ---
CARDIOLOGY CONSULTATION REASON FOR CONSULTATION: Chest pain and shortness of breath. HISTORY OF PRESENT ILLNESS: The patient is 51 years old, morbidly obese, male, who has a history of sleep apnea, on BiPAP at home, history of coronary artery disease, status post coronary artery bypass surgery, history of ICD placement. The patient has multiple admissions in the past for both exacerbation of CHF as well as chest pain. The patient underwent cardiac catheterization in [facility], which I did review myself after obtaining the CD from that hospital and I recommended no need for coronary intervention and to rather continue medical management. The patient presents at this time because of chest discomfort, shortness of breath and leg swelling. The patient denies any recent discharge of defibrillator. SOCIAL HISTORY: The patient is a former smoker. MEDICATIONS: Coreg 25 mg once a day, Crestor 40 mg once a day, Eliquis 5 mg twice a day, Januvia 25 mg daily, Lanoxin 0.25 mg daily, Lasix 40 mg p.o. twice a day, Plaquenil 200 mg twice a day, Plavix 75 mg once a day, Synthroid 1 mg daily, Zestril 5 mg daily. REVIEW OF SYSTEMS: No nausea or vomiting. No dizziness or syncope. No recent discharge of the defibrillator. PHYSICAL EXAMINATION: GENERAL: The patient is a middle-aged male, who does not appear to be in any acute distress. VITAL SIGNS: Blood pressure 137/60, heart rate 73, temperature 98.4, respirations 20. HEENT: Pale conjunctivae. CHEST: Diffuse bilateral rhonchi. HEART: S1 and S2 regular. ABDOMEN: Soft. EXTREMITIES: Significant chronic skin changes bilaterally with nonpitting edema. LABORATORY DATA: SMA-7: Sodium 135, potassium 4.2, chloride 99, CO2 of 25, glucose 179, BUN 47, creatinine 1.0. Hemoglobin and hematocrit 10.6 and 34.0, white count and platelet count are within normal limits. Drug screen is positive for opiates. EKG revealed atrial sensed ventricular paced rhythm. Chest x-ray revealed borderline cardiomegaly. Mild CHF. ICD, possibly BiV pacemaker. ASSESSMENT: 1. Exacerbation of congestive heart failure. 2. Sleep apnea. 3. History of coronary artery disease, status post coronary artery bypass surgery. 4. Mild anemia. 5. Prerenal azotemia. 6. Hypothyroidism. 7. Uncontrolled diabetes mellitus. RECOMMENDATIONS: Continue current Coreg 25 mg once a day, Crestor 4 mg once a day, Eliquis is 5 mg twice a day, Januvia is 25 mg once a day, Lanoxin 0.25 mg daily, Lasix at 40 mg orally twice a day, Plavix 75 mg once a day, Plaquenil 200 mg twice a day, Synthroid at 1 mg daily, Zestril 5 mg daily. Obtain TSH level. Burke Bernstein MD
[2017-01-18 16:58] VITALS: TEMP 98.1; O2SAT 98
[2017-01-18] MEDS ORDERED: Digoxin 125 mcg (0.125 mg) Tab PO SCH (18:00)
[2017-01-18 18:44] VITALS: PULSE 89
--- NOTE | 2017-01-18 19:48 | CP.PCM.HP ---
History of Present Illness - History of Present Illness History of Present Illness: CC: Chest pain HPI: 51 year old male with multiple cardiac Hx presents to the ED c/o chest pain that he describes as stabbing. Past Patient History - Infectious Disease Hx of Infectious Diseases: None - Past Medical History & Family History Past Medical History?: Yes - Past Social History Smoking Status: Current Some Days Smoker - CARDIAC Hx Atrial Fibrillation: Yes Hx Cardia Arrhythmia: Yes (AFIB) Hx Congestive Heart Failure: Yes Hx Hypercholesterolemia: Yes Hx Hypertension: Yes Hx Pacemaker: Yes (left upper chest) Hx Peripheral Edema: Yes - PULMONARY Hx Chronic Obstructive Pulmonary Disease (COPD): Yes Hx Emphysema: Yes Hx Pneumonia: Yes Hx Sleep Apnea: Yes - NEUROLOGICAL Hx Transient Ischemic Attacks (TIA): Yes (Hx of Strokes-2008) - HEENT Hx HEENT Problems: No - RENAL Hx Chronic Kidney Disease: No - ENDOCRINE/METABOLIC Hx Hypothyroidism: Yes - HEMATOLOGICAL/ONCOLOGICAL Hx Blood Disorders: Yes Hx Blood Transfusions: Yes - INTEGUMENTARY Hx Dermatological Problems: No - MUSCULOSKELETAL/RHEUMATOLOGICAL Hx Musculoskeletal Disorders: No Hx Falls: No - GASTROINTESTINAL Hx Gastrointestinal Disorders: No - GENITOURINARY/GYNECOLOGICAL Hx Genitourinary Disorders: No - PSYCHIATRIC Hx Anxiety: Yes Hx Substance Use: No - SURGICAL HISTORY Hx Coronary Artery Bypass Graft: Yes (2008) Hx Coronary Stent: Yes (3 Stents Prior to Quadruple Bypass) - ANESTHESIA Hx Anesthesia: Yes Hx Anesthesia Reactions: No Hx Malignant Hyperthermia: No Meds Allergies/Adverse Reactions: Allergies Allergy/AdvReac Type Severity Reaction Status Date / Time No Known Drug Allergies Allergy n/a Verified 12/16/16 14:03 Results - Vital Signs Recent Vital Signs: Last Vital Signs Temp 98.1 F 01/18/17 16:57 Pulse 81 01/18/17 16:57 Resp 20 01/18/17 16:57 BP 106/62 01/18/17 18:44 Pulse Ox 98 01/18/17 16:57 - Labs Result Diagrams: 01/17/17 22:48 01/17/17 22:48 Labs: Laboratory Results - last 24 hr 01/17/17 01/17/17 01/17/17 22:15 22:48 22:48 WBC 8.6 RBC 4.18 L Hgb 10.6 L Hct 34.0 L MCV 81.2 MCH 25.4 L MCHC 31.3 L RDW 17.6 H Plt Count 171 MPV 8.9 Neut % (Auto) 72.0 Lymph % (Auto) 18.3 L [place] % (Auto) 6.9 Eos % (Auto) 2.0 Baso % (Auto) 0.8 Neut # 6.2 Lymph # 1.6 [place] # 0.6 Eos # 0.2 Baso # 0.1 Sodium 135 Potassium 4.2 Chloride 99 Carbon Dioxide 25 Anion Gap 15 BUN 47 H Creatinine 1.4 Est GFR ( Amer) > 60 Est GFR (Non-Af Amer) 54 POC Glucose (mg/dL) 235 H Random Glucose 179 H Calcium 8.0 L Total Bilirubin 0.6 AST 14 L ALT 30 Alkaline Phosphatase 162 H D Troponin I < 0.0120 NT-Pro-B Natriuret Pep 412 Total Protein 7.9 Albumin 3.8 Globulin 4.1 H Albumin/Globulin Ratio 0.9 L Urine Color Urine Clarity Urine pH Ur Specific [place] Urine Protein Urine Glucose (UA) Urine Ketones Urine Blood Urine Nitrate Urine Bilirubin Urine Urobilinogen Ur Leukocyte Esterase Ur Squamous Epith Cells Digoxin Urine Opiates Screen Urine Methadone Screen Ur Barbiturates Screen Ur Phencyclidine Scrn Ur Amphetamines Screen U Benzodiazepines Scrn U Oth Cocaine Metabols U Cannabinoids Screen Alcohol, Quantitative < 10 01/17/17 01/18/17 01/18/17 23:12 01:33 01:33 WBC RBC Hgb Hct MCV MCH MCHC RDW Plt Count MPV Neut % (Auto) Lymph % (Auto) [place] % (Auto) Eos % (Auto) Baso % (Auto) Neut # Lymph # [place] # Eos # Baso # Sodium Potassium Chloride Carbon Dioxide Anion Gap BUN Creatinine Est GFR ( Amer) Est GFR (Non-Af Amer) POC Glucose (mg/dL) Random Glucose Calcium Total Bilirubin AST ALT Alkaline Phosphatase Troponin I NT-Pro-B Natriuret Pep Total Protein Albumin Globulin Albumin/Globulin Ratio Urine Color Straw Urine Clarity Clear Urine pH 5.0 Ur Specific [place] 1.010 Urine Protein Negative Urine Glucose (UA) Normal Urine Ketones Negative Urine Blood Negative Urine Nitrate Negative Urine Bilirubin Negative Urine Urobilinogen Normal Ur Leukocyte Esterase Neg Ur Squamous Epith Cells < 1 Digoxin < 0.4 L Urine Opiates Screen Positive H Urine Methadone Screen Negative Ur Barbiturates Screen Negative Ur Phencyclidine Scrn Negative Ur Amphetamines Screen Negative U Benzodiazepines Scrn Negative U Oth Cocaine Metabols Negative U Cannabinoids Screen Negative Alcohol, Quantitative 01/18/17 01/18/17 01/18/17 06:44 11:42 16:39 WBC RBC Hgb Hct MCV MCH MCHC RDW Plt Count MPV Neut % (Auto) Lymph % (Auto) [place] % (Auto) Eos % (Auto) Baso % (Auto) Neut # Lymph # [place] # Eos # Baso # Sodium Potassium Chloride Carbon Dioxide Anion Gap BUN Creatinine Est GFR ( Amer) Est GFR (Non-Af Amer) POC Glucose (mg/dL) 226 H 207 H 225 H Random Glucose Calcium Total Bilirubin AST ALT Alkaline Phosphatase Troponin I NT-Pro-B Natriuret Pep Total Protein Albumin Globulin Albumin/Globulin Ratio Urine Color Urine Clarity Urine pH Ur Specific [place] Urine Protein Urine Glucose (UA) Urine Ketones Urine Blood Urine Nitrate Urine Bilirubin Urine Urobilinogen Ur Leukocyte Esterase Ur Squamous Epith Cells Digoxin Urine Opiates Screen Urine Methadone Screen Ur Barbiturates Screen Ur Phencyclidine Scrn Ur Amphetamines Screen U Benzodiazepines Scrn U Oth Cocaine Metabols U Cannabinoids Screen Alcohol, Quantitative
[2017-01-19 01:34] VITALS: PULSE 75
[2017-01-19] MEDS: oxyCODONE 30 mg Immediate Release Tab PO PRN ×3 (02:22→10:34)
[2017-01-19] MEDS ORDERED: Levothyroxine 100 MCG TAB PO SCH (09:30)
[2017-01-19 10:24] VITALS: BP 150/93
--- NOTE | 2017-01-19 12:53 | PCM.HF ---
Heart Failure Core Measure - Heart Failure Ejection Fraction: 40 % or Greater JEANNE Inhibitor Prescribed: Yes Beta-Rian Prescribed: Carvedilol Angiotensin II Receptor Rian Prescribed: No Contraindication/Reason for not providing: ON JEANNE AnticoagulationTherapy for Atrial Fibrillation/Atrialflutter: Yes Aldosterone Antagonist Prescribed: No Contraindication/Reason for not providing: EF >40 Hydralazine Nitrate Prescribed: No Contraindication/Reason for not providing: EF >40 Implantable Cardioverter Defibrillator Therapy: Yes Contraindication/Reason for not providing: HAS AICD Cardiac Resynchronization Therapy Prescribed: No Contraindication/Reason for not providing: HAS AICD - Follow up Will be discharged to: Home Follow Up Date (must be within 7 days from discharge): 01/23/17 Follow Up Time: 09:00
--- NOTE | 2017-01-19 17:43 | CARD ---
APPROVED REPORT EKG Measurement Heart [id number] <Conclusion> Atrial-sensed ventricular-paced rhythm Abnormal ECG
--- NOTE | 2017-01-19 23:38 | CP.PCM.DIS ---
Provider - Provider Date of Admission: 01/18/17 00:01 Attending physician: Ousmane Amor MD Time Spent in preparation of Discharge (in minutes): 39 Hospital Course - Lab Results Lab Results: Most Recent Lab Values WBC 8.6 K/uL (4.8-10.8) 01/17/17 22:48 RBC 4.18 Mil/uL (4.40-5.90) L 01/17/17 22:48 Hgb 10.6 g/dL (12.0-18.0) L 01/17/17 22:48 Hct 34.0 % (35.0-51.0) L 01/17/17 22:48 MCV 81.2 fL (80.0-94.0) 01/17/17 22:48 MCH 25.4 pg (27.0-31.0) L 01/17/17 22:48 MCHC 31.3 g/dL (33.0-37.0) L 01/17/17 22:48 RDW 17.6 % (11.5-14.5) H 01/17/17 22:48 Plt Count 171 K/uL (130-400) 01/17/17 22:48 MPV 8.9 fL (7.2-11.7) 01/17/17 22:48 Neut % (Auto) 72.0 % (50.0-75.0) 01/17/17 22:48 Lymph % (Auto) 18.3 % (20.0-40.0) L 01/17/17 22:48 Charles % (Auto) 6.9 % (0.0-10.0) 01/17/17 22:48 Eos % (Auto) 2.0 % (0.0-4.0) 01/17/17 22:48 Baso % (Auto) 0.8 % (0.0-2.0) 01/17/17 22:48 Neut # 6.2 K/uL (1.8-7.0) 01/17/17 22:48 Lymph # 1.6 K/uL (1.0-4.3) 01/17/17 22:48 Charles # 0.6 K/uL (0.0-0.8) 01/17/17 22:48 Eos # 0.2 K/uL (0.0-0.7) 01/17/17 22:48 Baso # 0.1 K/uL (0.0-0.2) 01/17/17 22:48 Sodium 135 mmol/L (132-148) 01/17/17 22:48 Potassium 4.2 mmol/L (3.6-5.2) 01/17/17 22:48 Chloride 99 mmol/L (98-107) 01/17/17 22:48 Carbon Dioxide 25 mmol/L (22-30) 01/17/17 22:48 Anion Gap 15 (10-20) 01/17/17 22:48 BUN 47 mg/dL (9-20) H 01/17/17 22:48 Creatinine 1.4 mg/dL (0.8-1.5) 01/17/17 22:48 Est GFR ( Amer) > 60 01/17/17 22:48 Est GFR (Non-Af Amer) 54 01/17/17 22:48 POC Glucose (mg/dL) 185 mg/dL (65-110) H 01/19/17 06:51 Random Glucose 179 mg/dL (75-110) H 01/17/17 22:48 Calcium 8.0 mg/dl (8.6-10.4) L 01/17/17 22:48 Total Bilirubin 0.6 mg/dL (0.2-1.3) 01/17/17 22:48 AST 14 U/L (17-59) L 01/17/17 22:48 ALT 30 U/L (21-72) 01/17/17 22:48 Alkaline Phosphatase 162 U/L (38-126) H D 01/17/17 22:48 Troponin I < 0.0120 ng/mL (0.00-0.120) 01/17/17 22:48 NT-Pro-B Natriuret Pep 412 pg/mL (0-450) 01/17/17 22:48 Total Protein 7.9 g/dL (6.3-8.3) 01/17/17 22:48 Albumin 3.8 g/dL (3.5-5.0) 01/17/17 22:48 Globulin 4.1 gm/dL (2.2-3.9) H 01/17/17 22:48 Albumin/Globulin Ratio 0.9 (1.0-2.1) L 01/17/17 22:48 Urine Color Straw (YELLOW) 01/18/17 01:33 Urine Clarity Clear (Clear) 01/18/17 01:33 Urine pH 5.0 (5.0-8.0) 01/18/17 01:33 Ur Specific [place] 1.010 (1.003-1.030) 01/18/17 01:33 Urine Protein Negative mg/dL (NEGATIVE) 01/18/17 01:33 Urine Glucose (UA) Normal mg/dL (Normal) 01/18/17 01:33 Urine Ketones Negative mg/dL (NEGATIVE) 01/18/17 01:33 Urine Blood Negative (NEGATIVE) 01/18/17 01:33 Urine Nitrate Negative (NEGATIVE) 01/18/17 01:33 Urine Bilirubin Negative (NEGATIVE) 01/18/17 01:33 Urine Urobilinogen Normal mg/dL (0.2-1.0) 01/18/17 01:33 Ur Leukocyte Esterase Neg [place]/uL (Negative) 01/18/17 01:33 Ur Squamous Epith Cells < 1 /hpf (0-5) 01/18/17 01:33 Digoxin < 0.4 ng/mL (0.8-2.0) L 01/17/17 23:12 Urine Opiates Screen Positive (NEGATIVE) H 01/18/17 01:33 Urine Methadone Screen Negative (NEGATIVE) 01/18/17 01:33 Ur Barbiturates Screen Negative (NEGATIVE) 01/18/17 01:33 Ur Phencyclidine Scrn Negative (NEGATIVE) 01/18/17 01:33 Ur Amphetamines Screen Negative (NEGATIVE) 01/18/17 01:33 U Benzodiazepines Scrn Negative (NEGATIVE) 01/18/17 01:33 U Oth Cocaine Metabols Negative (NEGATIVE) 01/18/17 01:33 U Cannabinoids Screen Negative (NEGATIVE) 01/18/17 01:33 Alcohol, Quantitative < 10 mg/dl (0-10) 01/17/17 22:48 Discharge Exam - Head Exam Head Exam: ATRAUMATIC, NORMAL INSPECTION - Eye Exam Eye Exam: Normal appearance - ENT Exam ENT Exam: Mucous Membranes Moist - Respiratory Exam Respiratory Exam: Decreased Breath Sounds, Rales, Rhonchi - Cardiovascular Exam Cardiovascular Exam: REGULAR RHYTHM, +S1, +S2 - GI/Abdominal Exam GI & Abdominal Exam: Normal Bowel Sounds Discharge Plan - Follow Up Plan Condition: GOOD Disposition: HOME/ ROUTINE Instructions: Heart Failure (DC), Chest Pain (DC), Heart Healthy Diet (DC), Low Sodium Diet (DC) Additional Instructions: FOLLOW UP WITH DR. AMOR IN THE OFFICE WITHIN 2-3 DAYS OF DISCHARGE--CALL FOR APPT TIME. FOLLOW UP WITH DR. MCKINLEY IN THE OFFICE NEXT WEEK---CALL FOR APPT TIME. CONTINUE ALL HOME MEDICATIONS. NO NEW PRESCRIPTIONS TODAY. FOR ANY OTHER QUESTIONS OR CONCERNS, CONTACT DR. AMOR'S OFFICE. Referrals: Burke Mckinley MD [Staff Provider] - 1 Week Ousmane Amor MD [Staff Provider] - 01/22/17
[2017-01-20] MEDS ORDERED: Pneumococcal 23-Valent Vaccine IM ONE (14:00)
== END 2017-01-19 10:45 | disposition home or self-care (01) ==
LOC: C.ER 22:00 → C.9E 01-18 00:01 → C.5S 01-18 02:29
PROVIDERS: ADMIT Internal Medicine; ATTEND Internal Medicine
DX: R07.89 Other chest pain (principal); D64.9 Anemia, unspecified; F17.200 Nicotine dependence, unspecified, uncomplicated; G47.30 Sleep apnea, unspecified; I11.0 Hypertensive heart disease with heart failure; I50.9 Heart failure, unspecified
CPT/HCPCS: 71010; 80053; 80162; 81001; 82948; 83880; 84484; 85025; 93005; 96374; 99285; G0378; G0480; J1940

== ENCOUNTER 2017-03-06 15:45 | Observation (INO) | payer MEDICARE, OTHER ==
[2017-03-06 15:46] VITALS: BMI 46.4
--- NOTE | 2017-03-06 16:48 | C.PDOC ---
History Of Present Illness 51 yr old male with PMHx of diabetes, CHF and HTN, presents to the ER with complaints of pressure like chest pain and SOB for the past 1 hr. Patient reports he has 4 cardiac stents. Denies fever, chills, nausea, vomiting, weakness or numbness. 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) Past Medical History Reviewed: Historical Data, Nursing Documentation, Vital Signs Vital Signs: Last Vital Signs Temp 98.9 F 03/06/17 15:49 Pulse 83 03/06/17 15:49 Resp 20 03/06/17 15:49 BP 143/79 03/06/17 15:49 Pulse Ox 100 03/06/17 18:11 - Medical History PMH: Anxiety, Atrial Fibrillation, Back Problems, CAD, Cardia Arrhythmia (AFIB) , CHF, COPD, Diabetes, Deep Vein Thrombosis, Emphysema, Graves' Disease, HTN, Hypercholesterolemia, Hypothyroidism, Peripheral Edema, Pneumonia, Sleep Apnea, TIA Surgical History: CABG (2008), Coronary Stent (3 Stents Prior to Quadruple Bypass), Pacemaker - [employer] Procedures ASSISTANCE WITH RESPIRATORY VENTILATION, 24-96 HRS, CPAP (10/15/15) INJECT/INFUSE NEC (10/09/12) Family History: States: No Known Family Hx - Social History Hx Tobacco Use: Yes Hx Alcohol Use: No Hx Substance Use: No - Immunization History Hx Tetanus Toxoid Vaccination: No Hx Influenza Vaccination: No Hx Pneumococcal Vaccination: Yes Review Of Systems Except As Marked, All Systems Reviewed And Found Negative. Constitutional: Negative for: Fever, Chills Cardiovascular: Positive for: Chest Pain (pressure like, left sided) Respiratory: Positive for: Shortness of Breath Gastrointestinal: Negative for: Nausea, Vomiting Neurological: Negative for: Weakness, Numbness Physical Exam - Physical Exam Appears: Non-toxic, No Acute Distress Skin: Warm, Dry, No Rash Head: Atraumatic, Normacephalic Eye(s): bilateral: Normal Inspection, PERRL, EOMI Oral Mucosa: Moist Cardiovascular: Rhythm Regular, No Murmur Respiratory: Rales (bilateral), No Wheezing Gastrointestinal/Abdominal: Normal Exam, Soft, No Tenderness, No Guarding, No Rebound Extremity: Normal ROM, Other ((+) 3+ pitting edema, varicose vein to the right lateral lower leg, excoriations from the previous bleeding site) Neurological/Psych: Oriented x3, Normal Speech, Normal Motor ED Course And Treatment - Laboratory Results Result Diagrams: 03/06/17 17:20 03/06/17 17:20 ECG: Interpreted By Me, Viewed By Me ECG Rhythm: A Paced Rate From EC (BPM) O2 Sat by Pulse Oximetry: 100 (RA) Pulse Ox Interpretation: Normal - Radiology CXR: Viewed By Me, Read By Radiologist CXR Interpretation: Yes: No Acute Disease Progress Note: Patient is admitted under Dr. Amor for chest pain/CHF. Medical Decision Making Medical Decision Making: PLAN: * CXR * EKG * Troponin * CBC * CMP Disposition Discussed With : Ousmane Amor Doctor Will See Patient In The: Hospital Counseled Patient/Family Regarding: Studies Performed, Diagnosis - Disposition Disposition: HOSPITALIZED Disposition Time: 18:10 Condition: FAIR - POA Core Measure Indicators: Chest Pain - Clinical Impression Clinical Impression: Chest pain - Scribe Statement The provider has reviewed the documentation as recorded by the Jodi Bateman Provider Attestation: All medical record entries made by the Nainibchris were at my direction and personally dictated by me. I have reviewed the chart and agree that the record accurately reflects my personal performance of the history, physical exam, medical decision making, and the department course for this patient. I have also personally directed, reviewed, and agree with the discharge instructions and disposition.
[2017-03-06 17:24] LABS: BASO # 0.1 K/uL (0.0-0.2); BASO % 0.8 % (0.0-2.0); EOS # 0.1 K/uL (0.0-0.7); EOS % 1.4 % (0.0-4.0); HEMOGLOBIN 10.8 g/dL (12.0-18.0); LYMPH # 1.5 K/uL (1.0-4.3); LYMPH % 17.2 % (20.0-40.0); MEAN CELL VOLUME 80.6 fL (80.0-94.0); MEAN CORPUSCULAR HGB CONC 32.3 g/dL (33.0-37.0); MEAN PLATELET VOLUME 8.8 fL (7.2-11.7); MONO # 0.3 K/uL (0.0-0.8); MONO % 3.1 % (0.0-10.0); NEUT # 6.8 K/uL (1.8-7.0); NEUT % 77.5 % (50.0-75.0); NRBC % 0.1 % (0.0-2.0); RBC 4.17 Mil/uL (4.40-5.90); RED CELL DISTRIBUTION WIDTH 17.2 % (11.5-14.5); WHITE BLOOD COUNT 8.7 K/uL (4.8-10.8)
[2017-03-06 17:31] LABS: INR 1.2; PROTHROMBIN TIME 13.4 SECONDS (9.7-12.2)
--- NOTE | 2017-03-06 17:31 | RAD ---
PROCEDURE: CHEST RADIOGRAPH, 1 VIEW HISTORY: chest pain COMPARISON: Comparison is made with 01/17/2017 FINDINGS: LUNGS: No evidence of new infiltrate or consolidation in the lungs. PLEURA: No pneumothorax or pleural fluid seen. CARDIOVASCULAR: The heart is normal in size P post sternotomy changes are again noted. Left-sided pacemaker is again seen in place. OSSEOUS STRUCTURES: No significant abnormalities. VISUALIZED UPPER ABDOMEN: Normal. OTHER FINDINGS: None. IMPRESSION: No active disease.
[2017-03-06 17:36] LABS: ALB/GLOB RATIO 0.9 (1.0-2.1); ALBUMIN 3.6 g/dL (3.5-5.0); ALT/SGPT 21 U/L (21-72); AST/SGOT 14 U/L (17-59); BLOOD UREA NITROGEN 38 mg/dL (9-20); GFR AFRICAN-AMERICAN > 60; GFR NON-AFRICAN AMERICAN > 60
[2017-03-06 17:47] LABS: B-TYPE NATRIURETIC PEPTIDE 657 pg/mL (0-450)
[2017-03-06] MEDS ORDERED: oxyCODONE 30 mg Immediate Release Tab ONE (21:59)
[2017-03-06] MEDS: oxyCODONE 30 mg Immediate Release Tab PO PRN (22:04)
[2017-03-06] MEDS: (Novolin R) Insulin Human Regular 100 units/ml vial SC SCH (22:05)
--- NOTE | 2017-03-06 22:58 | CP.PCM.HP ---
History of Present Illness - History of Present Illness History of Present Illness: CC: shortness of breath,worsening leg edema, chest pain HPI: 51 yr old male with PMHx of diabetes, CHF and HTN, presents to the ER with complaints of pressure like chest pain, dull non radiating and SOB for the past 1 hr.He has back pain radiating down to left buttock, he also c/o cough that is dry Patient reports he has 4 cardiac stents. Denies fever, chills, nausea, vomiting, weakness or numbness Present on Admission - Present on Admission Any Indicators Present on Admission: Yes Review of Systems - Review of Systems Systems not reviewed;Unavailable: Acuity of Condition - Constitutional Constitutional: Fatigue, Lethargy, Malaise, Weakness - EENT Nose/Mouth/Throat: Nasal Congestion - Cardiovascular Cardiovascular: Chest Pain, Chest Pain at Rest, Dyspnea, Leg Ulcers, Orthopnea, Paroxysmal Nocturnal Dyspnea - Respiratory Respiratory: Cough, Dyspnea - Gastrointestinal Gastrointestinal: absent: As Per HPI, Abdominal Pain, Belching, Bloating, Change in Bowel Habits, Change in Stool Character, Coffee Ground Emesis, Constipation, Cramping, Diarrhea, Dyspepsia, Dysphagia, Early Satiety, Excessive Flatus, Fecal Incontinence, Heartburn, Hematemesis, Hematochezia, Loose Stools, Melena, Nausea, Odynophagia, Temesmus, Vomiting, Other - Genitourinary Genitourinary: absent: As Per HPI, Change in Urinary Stream, Difficulty Urinating, Dysuria, Flank Pain, Hematuria, Pyuria, Nocturia, Urinary Incontinence, Urinary Frequency, Urinary Hesitance, Urinary Urgency, Voiding Freq/Small Amts, Freq UTI, Hx Renal/Bladder Calculi, Hx /Renal Surgery, Bladder Distension, Other - Integumentary Integumentary: Swelling - Neurological Neurological: absent: As Per HPI, Abnormal Gait, Abnormal Hearing, Abnormal Movements, Abnormal Speech, Behavioral Changes, Burning Sensations, Confusion, Convulsions, Disequilibrium, Dizziness, Numbness, Focal Weakness, Frequent Falls , Headaches, Lack of Coordination, Loss of Vision, Memory Loss, Paresthesias, Radicular Pain, Restless Legs, Sensory Deficit, Syncope, Tingling, Tremor, Vertigo, Weakness, Other Visual Disturbances, Other Past Patient History - Infectious Disease Hx of Infectious Diseases: None - Past Medical History & Family History Past Medical History?: Yes - Past Social History Smoking Status: Light Smoker < 10 Cigarettes Daily - CARDIAC Hx Atrial Fibrillation: Yes Hx Cardia Arrhythmia: Yes (AFIB) Hx Congestive Heart Failure: Yes Hx Hypercholesterolemia: Yes Hx Hypertension: Yes Hx Pacemaker: Yes Hx Peripheral Edema: Yes - PULMONARY Hx Chronic Obstructive Pulmonary Disease (COPD): Yes Hx Emphysema: Yes Hx Pneumonia: Yes Hx Sleep Apnea: Yes - NEUROLOGICAL Hx Transient Ischemic Attacks (TIA): Yes - HEENT Hx HEENT Problems: No - RENAL Hx Chronic Kidney Disease: No - ENDOCRINE/METABOLIC Hx Hypothyroidism: Yes - HEMATOLOGICAL/ONCOLOGICAL Hx Blood Disorders: Yes Hx Blood Transfusions: Yes - INTEGUMENTARY Hx Dermatological Problems: No - MUSCULOSKELETAL/RHEUMATOLOGICAL Hx Musculoskeletal Disorders: No Hx Falls: No - GASTROINTESTINAL Hx Gastrointestinal Disorders: No - GENITOURINARY/GYNECOLOGICAL Hx Genitourinary Disorders: No - PSYCHIATRIC Hx Anxiety: Yes Hx Substance Use: No - SURGICAL HISTORY Hx Coronary Artery Bypass Graft: Yes (2008) Hx Coronary Stent: Yes (3 Stents Prior to Quadruple Bypass) - ANESTHESIA Hx Anesthesia: Yes Hx Anesthesia Reactions: No Hx Malignant Hyperthermia: No Meds Allergies/Adverse Reactions: Allergies Allergy/AdvReac Type Severity Reaction Status Date / Time No Known Drug Allergies Allergy n/a Verified 03/06/17 15:50 Physical Exam - Constitutional Appears: Chronically Ill - Eye Exam Eye Exam: EOMI, Normal appearance, PERRL Pupil Exam: NORMAL ACCOMODATION, PERRL - Respiratory Exam Respiratory Exam: Decreased Breath Sounds, Rales, Rhonchi - Cardiovascular Exam Cardiovascular Exam: REGULAR RHYTHM, +S2 Additional comments: S3 pos - GI/Abdominal Exam GI & Abdominal Exam: Normal Bowel Sounds, Soft. absent: Tenderness Results - Vital Signs Recent Vital Signs: Last Vital Signs Temp 98.1 F 03/06/17 21:38 Pulse 92 H 03/06/17 21:38 Resp 18 03/06/17 21:38 BP 163/86 H 03/06/17 21:38 Pulse Ox 100 03/06/17 21:38 - Labs Result Diagrams: 03/07/17 11:33 03/07/17 11:33 Labs: Laboratory Results - last 24 hr 03/06/17 03/06/17 03/06/17 17:20 17:20 17:20 WBC 8.7 RBC 4.17 L Hgb 10.8 L Hct 33.6 L MCV 80.6 MCH 26.0 L MCHC 32.3 L RDW 17.2 H Plt Count 197 MPV 8.8 Neut % (Auto) 77.5 H Lymph % (Auto) 17.2 L [place] % (Auto) 3.1 Eos % (Auto) 1.4 Baso % (Auto) 0.8 Neut # 6.8 Lymph # 1.5 [place] # 0.3 Eos # 0.1 Baso # 0.1 PT 13.4 H INR 1.2 APTT 31 Sodium 135 Potassium 4.4 Chloride 100 Carbon Dioxide 26 Anion Gap 13 BUN 38 H Creatinine 1.2 Est GFR ( Amer) > 60 Est GFR (Non-Af Amer) > 60 POC Glucose (mg/dL) Random Glucose 294 H Hemoglobin A1c Calcium 8.0 L Total Bilirubin 0.3 AST 14 L D ALT 21 D Alkaline Phosphatase 160 H Troponin I < 0.0120 NT-Pro-B Natriuret Pep 657 H Total Protein 7.5 Albumin 3.6 Globulin 3.9 Albumin/Globulin Ratio 0.9 L TSH 3rd Generation 0.74 03/06/17 03/06/17 21:39 21:40 WBC RBC Hgb Hct MCV MCH MCHC RDW Plt Count MPV Neut % (Auto) Lymph % (Auto) [place] % (Auto) Eos % (Auto) Baso % (Auto) Neut # Lymph # [place] # Eos # Baso # PT INR APTT Sodium Potassium Chloride Carbon Dioxide Anion Gap BUN Creatinine Est GFR ( Amer) Est GFR (Non-Af Amer) POC Glucose (mg/dL) 274 H Random Glucose Hemoglobin A1c 10.2 H Calcium Total Bilirubin AST ALT Alkaline Phosphatase Troponin I NT-Pro-B Natriuret Pep Total Protein Albumin Globulin Albumin/Globulin Ratio TSH 3rd Generation Assessment & Plan (1) Hypertensive heart disease Status: Active (2) AICD (automatic cardioverter/defibrillator) present Status: Acute (3) CHF exacerbation Status: Acute (4) Chest pain Status: Acute (5) Diabetes mellitus Status: Acute (6) Low back pain Status: Acute (7) Morbid obesity with BMI of 45.0-49.9, adult Status: Chronic Priority: High (8) [place] and COPD overlap syndrome Status: Chronic
[2017-03-07 01:48] VITALS: RESP 20
[2017-03-07] MEDS: oxyCODONE 30 mg Immediate Release Tab PO PRN ×5 (03:10→23:50)
[2017-03-07] MEDS: Levothyroxine 100 MCG TAB PO SCH (06:57)
[2017-03-07] MEDS: (Novolin R) Insulin Human Regular 100 units/ml vial SC SCH ×4 (08:12→22:26)
[2017-03-07 11:38] LABS: HEMOGLOBIN 11.2 g/dL (12.0-18.0); MEAN CELL VOLUME 80.3 fL (80.0-94.0); MEAN CORPUSCULAR HEMOGLOBIN 26.2 pg (27.0-31.0); MEAN CORPUSCULAR HGB CONC 32.6 g/dL (33.0-37.0); MEAN PLATELET VOLUME 9.2 fL (7.2-11.7); RBC 4.28 Mil/uL (4.40-5.90); RED CELL DISTRIBUTION WIDTH 17.2 % (11.5-14.5)
[2017-03-07 12:07] LABS: BLOOD UREA NITROGEN 22 mg/dL (9-20); CALCIUM 8.3 mg/dl (8.6-10.4); GFR AFRICAN-AMERICAN > 60; GFR NON-AFRICAN AMERICAN > 60
[2017-03-07] MEDS ORDERED: Digoxin 125 mcg (0.125 mg) Tab PO SCH (18:00)
[2017-03-07 18:06] VITALS: PULSE 69
--- NOTE | 2017-03-07 22:08 | CP.PCM.PN ---
Subjective - Date & Time of Evaluation Date of Evaluation: 03/07/17 Time of Evaluation: 18:15 - Subjective Subjective: pt is afebrile, feels better, decreased leg edema, being diuresed, [place] has been ruled out Objective - Vital Signs/Intake and Output Vital Signs (last 24 hours): Temp Pulse Resp BP Pulse Ox 98.2 F 74 20 132/84 97 03/07/17 16:00 03/07/17 16:00 03/07/17 16:00 03/07/17 18:03 03/07/17 16:00 Intake and Output: 03/07/17 03/08/17 18:59 06:59 Intake Total 1060 Output Total 1900 Balance -840 - Medications Medications: Current Medications Apixaban (Eliquis) 5 mg PO Q12 [facility] Last Admin: 03/07/17 21:17 Dose: 5 mg Carvedilol (Coreg) 25 mg PO BID [facility] Last Admin: 03/07/17 18:03 Dose: 25 mg Clopidogrel Bisulfate (Plavix) 75 mg PO DAILY [facility] Last Admin: 03/07/17 09:41 Dose: 75 mg Digoxin (Lanoxin) 0.125 mg PO DAILY@1800 [facility] Last Admin: 03/07/17 18:03 Dose: 0.125 mg Furosemide (Lasix) 60 mg IVP Q12 [facility] Last Admin: 03/07/17 21:16 Dose: Not Given Hydroxychloroquine Sulfate (Plaquenil) 200 mg PO BID [facility] Last Admin: 03/07/17 18:03 Dose: 200 mg Insulin Human Regular (Novolin R) 0 unit SC [facility] PRN Reason: Protocol Last Admin: 03/07/17 17:30 Dose: Not Given Levothyroxine Sodium (Synthroid) 100 mcg PO DAILY@0630 [facility] Last Admin: 03/07/17 06:57 Dose: 100 mcg Lisinopril (Zestril) 5 mg PO DAILY [facility] Last Admin: 03/07/17 09:41 Dose: 5 mg Nitroglycerin (Nitrostat Sl Tab) 0.4 mg SL Q5MIN PRN PRN Reason: chest pain Oxycodone HCl (Oxycodone Immediate Release Tab) 30 mg PO Q4H PRN PRN Reason: Pain, Mild (1-3) Last Admin: 03/07/17 18:02 Dose: 30 mg Pneumococcal Polyvalent Vaccine (Pneumovax 23 Vaccine) 0.5 ml IM .ONCE ONE Stop: 03/09/17 10:01 Rosuvastatin Calcium (Crestor) 40 mg PO HS [facility] Last Admin: 03/07/17 21:16 Dose: 40 mg Sitagliptin Phosphate (Januvia) 25 mg PO DAILY [facility] Last Admin: 03/07/17 09:41 Dose: 25 mg - Labs Labs: 03/07/17 11:33 03/07/17 11:33 PT 13.4 SECONDS (9.7-12.2) H 03/06/17 17:20 INR 1.2 03/06/17 17:20 APTT 31 SECONDS (21-34) 03/06/17 17:20 - Constitutional Appears: No Acute Distress - Head Exam Head Exam: ATRAUMATIC, NORMAL INSPECTION, NORMOCEPHALIC - Eye Exam Eye Exam: EOMI, Normal appearance, PERRL Pupil Exam: NORMAL ACCOMODATION, PERRL - Respiratory Exam Respiratory Exam: Decreased Breath Sounds, Rales - Cardiovascular Exam Cardiovascular Exam: +S1, +S2, Murmur Additional comments: S3 posi Assessment and Plan (1) Hypertensive heart disease Status: Active (2) CHF exacerbation Status: Acute (3) Chest pain Status: Resolved (4) Diabetes mellitus Status: Acute (5) Leg ulcer Status: Acute (6) HTN (hypertension) Status: Chronic (7) Morbid obesity with BMI of 45.0-49.9, adult Status: Chronic (8) Sleep apnea Status: Chronic
[2017-03-08] MEDS: oxyCODONE 30 mg Immediate Release Tab PO PRN ×2 (04:09→08:15)
[2017-03-08] MEDS: Levothyroxine 100 MCG TAB PO SCH (06:08)
[2017-03-08 08:16] VITALS: BP 164/98; PULSE 63; TEMP 98.9; O2SAT 100
[2017-03-08] MEDS: (Novolin R) Insulin Human Regular 100 units/ml vial SC SCH (08:23)
--- NOTE | 2017-03-08 22:36 | CP.PCM.DIS ---
Provider - Provider Date of Admission: 03/06/17 18:08 Attending physician: Ousmane Amor MD Time Spent in preparation of Discharge (in minutes): 45 Diagnosis - Discharge Diagnosis (1) Hypertensive heart disease Status: Active (2) CHF exacerbation Status: Acute (3) Chest pain Status: Resolved (4) Diabetes mellitus Status: Acute (5) Leg ulcer Status: Acute (6) HTN (hypertension) Status: Chronic Priority: Medium (7) Morbid obesity with BMI of 45.0-49.9, adult Status: Chronic Priority: High (8) Sleep apnea Status: Chronic Hospital Course - Lab Results Lab Results: Most Recent Lab Values WBC 8.0 K/uL (4.8-10.8) 03/07/17 11:33 RBC 4.28 Mil/uL (4.40-5.90) L 03/07/17 11:33 Hgb 11.2 g/dL (12.0-18.0) L 03/07/17 11:33 Hct 34.3 % (35.0-51.0) L 03/07/17 11:33 MCV 80.3 fL (80.0-94.0) 03/07/17 11:33 MCH 26.2 pg (27.0-31.0) L 03/07/17 11:33 MCHC 32.6 g/dL (33.0-37.0) L 03/07/17 11:33 RDW 17.2 % (11.5-14.5) H 03/07/17 11:33 Plt Count 157 K/uL (130-400) 03/07/17 11:33 MPV 9.2 fL (7.2-11.7) 03/07/17 11:33 Neut % (Auto) 77.5 % (50.0-75.0) H 03/06/17 17:20 Lymph % (Auto) 17.2 % (20.0-40.0) L 03/06/17 17:20 [place] % (Auto) 3.1 % (0.0-10.0) 03/06/17 17:20 Eos % (Auto) 1.4 % (0.0-4.0) 03/06/17 17:20 Baso % (Auto) 0.8 % (0.0-2.0) 03/06/17 17:20 Neut # 6.8 K/uL (1.8-7.0) 03/06/17 17:20 Lymph # 1.5 K/uL (1.0-4.3) 03/06/17 17:20 [place] # 0.3 K/uL (0.0-0.8) 03/06/17 17:20 Eos # 0.1 K/uL (0.0-0.7) 03/06/17 17:20 Baso # 0.1 K/uL (0.0-0.2) 03/06/17 17:20 PT 13.4 SECONDS (9.7-12.2) H 03/06/17 17:20 INR 1.2 03/06/17 17:20 APTT 31 SECONDS (21-34) 03/06/17 17:20 Sodium 132 mmol/L (132-148) 03/07/17 11:33 Potassium 4.4 mmol/L (3.6-5.2) 03/07/17 11:33 Chloride 102 mmol/L (98-107) 03/07/17 11:33 Carbon Dioxide 23 mmol/L (22-30) 03/07/17 11:33 Anion Gap 10 (10-20) 03/07/17 11:33 BUN 22 mg/dL (9-20) H 03/07/17 11:33 Creatinine 0.8 mg/dL (0.8-1.5) 03/07/17 11:33 Est GFR ( Amer) > 60 03/07/17 11:33 Est GFR (Non-Af Amer) > 60 03/07/17 11:33 POC Glucose (mg/dL) 251 mg/dL (65-110) H 03/07/17 11:25 Random Glucose 255 mg/dL (75-110) H 03/07/17 11:33 Hemoglobin A1c 10.2 % (4.2-6.5) H 03/06/17 21:40 Calcium 8.3 mg/dl (8.6-10.4) L 03/07/17 11:33 Total Bilirubin 0.3 mg/dL (0.2-1.3) 03/06/17 17:20 AST 14 U/L (17-59) L D 03/06/17 17:20 ALT 21 U/L (21-72) D 03/06/17 17:20 Alkaline Phosphatase 160 U/L (38-126) H 03/06/17 17:20 Troponin I < 0.0120 ng/mL (0.00-0.120) 03/07/17 11:33 NT-Pro-B Natriuret Pep 657 pg/mL (0-450) H 03/06/17 17:20 Total Protein 7.5 g/dL (6.3-8.3) 03/06/17 17:20 Albumin 3.6 g/dL (3.5-5.0) 03/06/17 17:20 Globulin 3.9 gm/dL (2.2-3.9) 03/06/17 17:20 Albumin/Globulin Ratio 0.9 (1.0-2.1) L 03/06/17 17:20 TSH 3rd Generation 0.74 mIU/L (0.46-4.68) 03/06/17 17:20 - Hospital Course Hospital Course: Pt was admitted for chest pain, leg edema and CHF exacerbation, he was being diuresed on medical management though he feels better he was being treated but he left AMA Discharge Exam - Head Exam Head Exam: ATRAUMATIC, NORMAL INSPECTION, NORMOCEPHALIC - ENT Exam ENT Exam: Mucous Membranes Moist - Respiratory Exam Respiratory Exam: Decreased Breath Sounds, Rales - Cardiovascular Exam Cardiovascular Exam: +S1, +S2, Systolic Murmur Additional comments: S3 positive - GI/Abdominal Exam GI & Abdominal Exam: Normal Bowel Sounds Discharge Plan - Follow Up Plan Condition: FAIR Disposition: AGAINST MEDICAL ADVICE
[2017-03-09] MEDS ORDERED: Pneumococcal 23-Valent Vaccine IM ONE (10:00)
== END 2017-03-08 11:15 | disposition left against medical advice (07) ==
LOC: C.ER 15:45 → C.9E 18:08 → C.6T 03-07 00:56
PROVIDERS: ADMIT Internal Medicine; ATTEND Internal Medicine
DX: I11.0 Hypertensive heart disease with heart failure (principal); I25.10 Atherosclerotic heart disease of native coronary artery without angina pectoris; G47.33 Obstructive sleep apnea (adult) (pediatric); I48.91 Unspecified atrial fibrillation; I50.9 Heart failure, unspecified; J43.9 Emphysema, unspecified; L97.909 Non-pressure chronic ulcer of unspecified part of unspecified lower leg with unspecified severity; E66.01 Morbid (severe) obesity due to excess calories; E03.9 Hypothyroidism, unspecified; Z68.42 Body mass index [BMI] 45.0-49.9, adult; E11.622 Type 2 diabetes mellitus with other skin ulcer; Z87.01 Personal history of pneumonia (recurrent); Z87.891 Personal history of nicotine dependence; Z95.5 Presence of coronary angioplasty implant and graft
CPT/HCPCS: 36415; 71045; 80048; 80053; 82948; 83036; 83880; 84443; 84484; 85025; 85027; 85610; 85730; 99285; G0378; J1940

== ENCOUNTER 2017-03-23 09:31 | Observation (INO) | payer MEDICARE, OTHER ==
[2017-03-23 09:31] VITALS: BMI 46.4
--- NOTE | 2017-03-23 10:39 | C.PDOC ---
History Of Present Illness 51 y/o morbidly obese male, with history of CHF, HTN, presents to the ER complaining of chest pain which has been present for the past day. Patient is also complaining of left sided chest heaviness and shortness of breath with exertion. Time Seen by Provider: 03/23/17 10:16 Chief Complaint (Nursing): Chest Pain History Per: Patient History/Exam Limitations: no limitations Onset/Duration Of Symptoms: Days Current Symptoms Are (Timing): Still Present Severity: Moderate Past Medical History Reviewed: Historical Data, Nursing Documentation, Vital Signs Vital Signs: Last Vital Signs Temp 98.3 F 03/23/17 14:45 Pulse 66 03/23/17 14:45 Resp 20 03/23/17 14:45 BP 128/82 03/23/17 14:45 Pulse Ox 98 03/23/17 14:45 - Medical History PMH: Anxiety, Atrial Fibrillation, Back Problems, CAD, Cardia Arrhythmia (AFIB) , CHF, COPD, Diabetes, Deep Vein Thrombosis, Emphysema, Graves' Disease, HTN, Hypercholesterolemia, Hypothyroidism, Peripheral Edema, Pneumonia, Sleep Apnea, TIA Denies: Chronic Kidney Disease Surgical History: CABG (2008), Coronary Stent (3 Stents Prior to Quadruple Bypass), Pacemaker - [facility] Procedures ASSISTANCE WITH RESPIRATORY VENTILATION, 24-96 HRS, CPAP (10/15/15) INJECT/INFUSE NEC (10/09/12) Family History: States: No Known Family Hx - Social History Hx Tobacco Use: Yes Hx Alcohol Use: No Hx Substance Use: No - Immunization History Hx Tetanus Toxoid Vaccination: No Hx Influenza Vaccination: No Hx Pneumococcal Vaccination: Yes Review Of Systems Except As Marked, All Systems Reviewed And Found Negative. Constitutional: Negative for: Fever, Chills Cardiovascular: Positive for: Chest Pain Respiratory: Positive for: Shortness of Breath. Negative for: Cough Physical Exam - Physical Exam Appears: Non-toxic, No Acute Distress, Other (morbidly obese) Skin: Normal Color, Warm Head: Atraumatic, Normacephalic Eye(s): bilateral: Normal Inspection, PERRL Nose: Normal Oral Mucosa: Moist Neck: Supple Cardiovascular: Rhythm Regular Respiratory: Decreased Breath Sounds (diminished breath sounds bilaterally), No Accessory Muscle Use, No Rales, No Rhonchi, No Wheezing Gastrointestinal/Abdominal: Normal Exam, Soft, No Tenderness Extremity: Normal ROM Neurological/Psych: Oriented x3, Normal Speech, Normal Cognition, Normal Motor, Normal Sensation ED Course And Treatment - Laboratory Results Result Diagrams: 03/23/17 10:28 03/23/17 10:28 ECG: Interpreted By Me, Viewed By Me ECG Rhythm: Sinus Rhythm Rate From EC (Pacemaker) Medical Decision Making Medical Decision Making: cp r/o acs - Plan: --Labs --Urinalysis --ECG --CXR perc neg, hyperglycemia treated no e/o of dka , ketone neg. discussed with dr garsia acceptjuan Disposition - Disposition Disposition: HOSPITALIZED Disposition Time: 15:22 Condition: STABLE - Clinical Impression Clinical Impression: Chest pain, Hyperglycemia - Scribe Statement The provider has reviewed the documentation as recorded by the Jodi Michaels Provider Attestation: All medical record entries made by the Nainibchris were at my direction and personally dictated by me. I have reviewed the chart and agree that the record accurately reflects my personal performance of the history, physical exam, medical decision making, and the department course for this patient. I have also personally directed, reviewed, and agree with the discharge instructions and disposition.
[2017-03-23 10:42] LABS: BASO # 0.1 K/uL (0.0-0.2); BASO % 1.2 % (0.0-2.0); EOS # 0.1 K/uL (0.0-0.7); EOS % 1.3 % (0.0-4.0); HEMOGLOBIN 11.7 g/dL (12.0-18.0); LYMPH # 1.1 K/uL (1.0-4.3); LYMPH % 14.8 % (20.0-40.0); MEAN CELL VOLUME 81.3 fL (80.0-94.0); MEAN CORPUSCULAR HGB CONC 31.9 g/dL (33.0-37.0); MEAN PLATELET VOLUME 9.1 fL (7.2-11.7); MONO # 0.4 K/uL (0.0-0.8); MONO % 4.9 % (0.0-10.0); NEUT # 5.8 K/uL (1.8-7.0); NEUT % 77.8 % (50.0-75.0); RBC 4.51 Mil/uL (4.40-5.90); RED CELL DISTRIBUTION WIDTH 16.7 % (11.5-14.5); WHITE BLOOD COUNT 7.4 K/uL (4.8-10.8)
[2017-03-23 10:55] LABS: INR 1.1
[2017-03-23 11:22] LABS: ALB/GLOB RATIO 0.9 (1.0-2.1); ALBUMIN 3.6 g/dL (3.5-5.0); ALT/SGPT 17 U/L (21-72); AST/SGOT 17 U/L (17-59); B-TYPE NATRIURETIC PEPTIDE 365 pg/mL (0-450); BLOOD UREA NITROGEN 40 mg/dL (9-20); CALCIUM 8.5 mg/dl (8.6-10.4); GFR AFRICAN-AMERICAN > 60; GFR NON-AFRICAN AMERICAN > 60
[2017-03-23] MEDS ORDERED: (Novolin R) Insulin Human Regular 100 units/ml vial IV STA (11:31)
[2017-03-23] MEDS ORDERED: (Novolin R) Insulin Human Regular 100 units/ml vial ONE (11:45)
[2017-03-23] MEDS ORDERED: Sodium Chloride 0.9% 1,000 ML IV ONE (12:00)
[2017-03-23] MEDS ORDERED: Sodium Chloride 0.9% 1,000 ML ONE (12:04)
--- NOTE | 2017-03-23 12:06 | RAD ---
HISTORY: chest pain COMPARISON: Chest x-ray performed 03/06/17 TECHNIQUE: Chest, one view. FINDINGS: Examination limited by habitus and hypoinflation. LUNGS: Moderate pulmonary venous congestion. No focal consolidation. Please note that chest x-ray has limited sensitivity for the detection of pulmonary masses. PLEURA: No significant pleural effusion identified. No definite pneumothorax . CARDIOVASCULAR: Median sternotomy wires. Left sided AICD. Cardiomegaly. OSSEOUS STRUCTURES: No acute osseous abnormality identified. VISUALIZED UPPER ABDOMEN: Unremarkable. OTHER FINDINGS: None. IMPRESSION: Examination limited by habitus and hypoinflation. Median sternotomy wires. Left sided AICD. Cardiomegaly. Moderate pulmonary venous congestion.
[2017-03-23 12:07] LABS: URINE BILIRUBIN NEGATIVE (NEGATIVE); URINE CLARITY Clear (Clear); URINE COLOR Straw (YELLOW); URINE GLUCOSE (UA) 3+ mg/dL (Normal); URINE LEUKOCYTE ESTERASE NEG Leu/uL (Negative); URINE NITRATE NEGATIVE (NEGATIVE); URINE PROTEIN NEGATIVE (NEGATIVE); URINE UROBILINOGEN NORMAL mg/dL (0.2-1.0)
[2017-03-23 12:22] LABS: URINE BLOOD NEGATIVE (NEGATIVE)
[2017-03-23 14:45] VITALS: RESP 20
[2017-03-23] MEDS ORDERED: Digoxin 125 mcg (0.125 mg) Tab PO SCH (18:00)
[2017-03-23] MEDS: (Novolin R) Insulin Human Regular 100 units/ml vial SC SCH ×2 (18:13→21:52)
[2017-03-23] MEDS: oxyCODONE 30 mg Immediate Release Tab PO PRN ×2 (18:13→21:51)
[2017-03-23 18:14] VITALS: PULSE 70
[2017-03-23 20:20] LABS: CK-MB 0.88 ng/mL (0.0-3.38)
--- NOTE | 2017-03-23 22:18 | CP.PCM.HP ---
History of Present Illness - History of Present Illness History of Present Illness: CC: Chest pain HPI: 51 y/o morbidly obese male, with history of CAD, S/P CABG, on AICD, Low EF , DVT, CHF, HTN,Hyperlipdemia, PE, Type 2 DM,chronic back pain complaint with diet and medications presents to the ER complaining of chest pain which has been present for the past day. Patient woke up today at 5 am in morning with chest pain radiating to back , he is also complaining of left sided chest heaviness and shortness of breath with exertion. Present on Admission - Present on Admission Any Indicators Present on Admission: Yes Review of Systems - Review of Systems Systems not reviewed;Unavailable: Acuity of Condition - Constitutional Constitutional: Fatigue - EENT Eyes: absent: As Per HPI, Blind Spots, Blurred Vision, Change in Vision, Decreased Night Vision, Diplopia, Discharge, Dry Eye, Exophthalmos, Floaters, Irritation, Itchy Eyes, Loss of Peripheral Vision, Pain, Photophobia, Requires Corrective Lenses, Sees Flashes, Spots in Vision, Tunnel Vision, Other Visual Disturbances, Loss of Vision, Other Nose/Mouth/Throat: absent: As Per HPI, Epistaxis, Nasal Congestion, Nasal Discharge, Nasal Obstruction, Nasal Trauma, Nose Pain, Post Nasal Drip, Sinus Pain, Sinus Pressure, Bleeding Gums, Change in Voice, Dental Pain, Dry Mouth, Dysphagia, Halitosis, Hoarsness, Lip Swelling, Mouth Lesions, Mouth Pain, Odynophagia, Sore Throat, Throat Swelling, Tongue Swelling, Facial Pain, Neck Pain, Neck Mass, Other - Cardiovascular Cardiovascular: Chest Pain, Chest Pain at Rest, Dyspnea, Dyspnea on Exertion, Irregular Heart Rhythm - Respiratory Respiratory: Cough, Dyspnea - Gastrointestinal Gastrointestinal: absent: As Per HPI, Abdominal Pain, Belching, Bloating, Change in Bowel Habits, Change in Stool Character, Coffee Ground Emesis, Constipation, Cramping, Diarrhea, Dyspepsia, Dysphagia, Early Satiety, Excessive Flatus, Fecal Incontinence, Heartburn, Hematemesis, Hematochezia, Loose Stools, Melena, Nausea, Odynophagia, Temesmus, Vomiting, Other - Integumentary Integumentary: Changing Lesions, Dry Skin - Neurological Neurological: absent: As Per HPI, Abnormal Gait, Abnormal Hearing, Abnormal Movements, Abnormal Speech, Behavioral Changes, Burning Sensations, Confusion, Convulsions, Disequilibrium, Dizziness, Numbness, Focal Weakness, Frequent Falls , Headaches, Lack of Coordination, Loss of Vision, Memory Loss, Paresthesias, Radicular Pain, Restless Legs, Sensory Deficit, Syncope, Tingling, Tremor, Vertigo, Weakness, Other Visual Disturbances, Other Past Patient History - Infectious Disease Hx of Infectious Diseases: None - Past Medical History & Family History Past Medical History?: Yes - Past Social History Smoking Status: Light Smoker < 10 Cigarettes Daily - CARDIAC Hx Atrial Fibrillation: Yes Hx Cardia Arrhythmia: Yes (AFIB) Hx Congestive Heart Failure: Yes Hx Hypercholesterolemia: Yes Hx Hypertension: Yes Hx Pacemaker: Yes Hx Peripheral Edema: Yes - PULMONARY Hx Chronic Obstructive Pulmonary Disease (COPD): Yes Hx Emphysema: Yes Hx Pneumonia: Yes Hx Sleep Apnea: Yes - NEUROLOGICAL Hx Transient Ischemic Attacks (TIA): Yes - HEENT Hx HEENT Problems: No - RENAL Hx Chronic Kidney Disease: No - ENDOCRINE/METABOLIC Hx Hypothyroidism: Yes - HEMATOLOGICAL/ONCOLOGICAL Hx Blood Disorders: Yes Hx Blood Transfusions: Yes - INTEGUMENTARY Hx Dermatological Problems: No - MUSCULOSKELETAL/RHEUMATOLOGICAL Hx Musculoskeletal Disorders: No Hx Falls: No - GASTROINTESTINAL Hx Gastrointestinal Disorders: No - GENITOURINARY/GYNECOLOGICAL Hx Genitourinary Disorders: No - PSYCHIATRIC Hx Anxiety: Yes Hx Substance Use: No - SURGICAL HISTORY Hx Coronary Artery Bypass Graft: Yes (2008) Hx Coronary Stent: Yes (3 Stents Prior to Quadruple Bypass) - ANESTHESIA Hx Anesthesia: Yes Hx Anesthesia Reactions: No Hx Malignant Hyperthermia: No Meds Allergies/Adverse Reactions: Allergies Allergy/AdvReac Type Severity Reaction Status Date / Time No Known Drug Allergies Allergy n/a Verified 03/06/17 15:50 Physical Exam - Constitutional Appears: No Acute Distress - Head Exam Head Exam: ATRAUMATIC, NORMAL INSPECTION, NORMOCEPHALIC - Eye Exam Eye Exam: EOMI, Normal appearance, PERRL Pupil Exam: NORMAL ACCOMODATION, PERRL - ENT Exam ENT Exam: Mucous Membranes Moist, Normal Exam - Neck Exam Neck exam: Positive for: Normal Inspection - Respiratory Exam Respiratory Exam: Clear to Auscultation Bilateral, NORMAL BREATHING PATTERN - Cardiovascular Exam Cardiovascular Exam: +S1, +S2, Systolic Murmur - GI/Abdominal Exam GI & Abdominal Exam: Normal Bowel Sounds, Soft. absent: Tenderness - Back Exam Back exam: NORMAL INSPECTION - Neurological Exam Neurological exam: Alert, CN II-XII Intact, Normal Gait, Oriented x3, Reflexes Normal - Psychiatric Exam Psychiatric exam: Normal Affect, Normal Mood Results - Vital Signs Recent Vital Signs: Last Vital Signs Temp 98 F 03/23/17 16:17 Pulse 70 03/23/17 16:17 Resp 20 03/23/17 16:17 BP 136/89 03/23/17 18:12 Pulse Ox 100 03/23/17 16:17 - Labs Result Diagrams: 03/23/17 10:28 03/23/17 10:28 Labs: Laboratory Results - last 24 hr 03/23/17 03/23/17 03/23/17 10:28 10:28 10:28 WBC 7.4 RBC 4.51 Hgb 11.7 L Hct 36.7 MCV 81.3 MCH 26.0 L MCHC 31.9 L RDW 16.7 H Plt Count 154 MPV 9.1 Neut % (Auto) 77.8 H Lymph % (Auto) 14.8 L [place] % (Auto) 4.9 Eos % (Auto) 1.3 Baso % (Auto) 1.2 Neut # 5.8 Lymph # 1.1 [place] # 0.4 Eos # 0.1 Baso # 0.1 PT 13.0 H INR 1.1 APTT 29 Sodium 131 L Potassium 4.5 Chloride 97 L Carbon Dioxide 22 Anion Gap 16 BUN 40 H Creatinine 1.1 Est GFR ( Amer) > 60 Est GFR (Non-Af Amer) > 60 POC Glucose (mg/dL) Random Glucose 522 H* D Calcium 8.5 L Total Bilirubin 0.5 AST 17 D ALT 17 L Alkaline Phosphatase 173 H Total Creatine Kinase CK-MB (Mass) Troponin I 0.0160 NT-Pro-B Natriuret Pep 365 Total Protein 7.4 Albumin 3.6 Globulin 3.8 Albumin/Globulin Ratio 0.9 L Urine Color Urine Clarity Urine pH Ur Specific [place] Urine Protein Urine Glucose (UA) Urine Ketones Urine Blood Urine Nitrate Urine Bilirubin Urine Urobilinogen Ur Leukocyte Esterase Urine RBC (Auto) Digoxin Serum Ketones Negative 03/23/17 03/23/17 03/23/17 10:31 11:59 13:34 WBC RBC Hgb Hct MCV MCH MCHC RDW Plt Count MPV Neut % (Auto) Lymph % (Auto) [place] % (Auto) Eos % (Auto) Baso % (Auto) Neut # Lymph # [place] # Eos # Baso # PT INR APTT Sodium Potassium Chloride Carbon Dioxide Anion Gap BUN Creatinine Est GFR ( Amer) Est GFR (Non-Af Amer) POC Glucose (mg/dL) 297 H Random Glucose Calcium Total Bilirubin AST ALT Alkaline Phosphatase Total Creatine Kinase CK-MB (Mass) Troponin I NT-Pro-B Natriuret Pep Total Protein Albumin Globulin Albumin/Globulin Ratio Urine Color Straw Urine Clarity Clear Urine pH 5.0 Ur Specific [place] 1.015 Urine Protein Negative Urine Glucose (UA) 3+ H Urine Ketones Negative Urine Blood Negative Urine Nitrate Negative Urine Bilirubin Negative Urine Urobilinogen Normal Ur Leukocyte Esterase Neg Urine RBC (Auto) 2 Digoxin 0.6 L Serum Ketones 03/23/17 03/23/17 03/23/17 17:27 19:47 21:11 WBC RBC Hgb Hct MCV MCH MCHC RDW Plt Count MPV Neut % (Auto) Lymph % (Auto) [place] % (Auto) Eos % (Auto) Baso % (Auto) Neut # Lymph # [place] # Eos # Baso # PT INR APTT Sodium Potassium Chloride Carbon Dioxide Anion Gap BUN Creatinine Est GFR ( Amer) Est GFR (Non-Af Amer) POC Glucose (mg/dL) 429 H* 298 H Random Glucose Calcium Total Bilirubin AST ALT Alkaline Phosphatase Total Creatine Kinase 69 CK-MB (Mass) 0.88 Troponin I < 0.0120 NT-Pro-B Natriuret Pep Total Protein Albumin Globulin Albumin/Globulin Ratio Urine Color Urine Clarity Urine pH Ur Specific [place] Urine Protein Urine Glucose (UA) Urine Ketones Urine Blood Urine Nitrate Urine Bilirubin Urine Urobilinogen Ur Leukocyte Esterase Urine RBC (Auto) Digoxin Serum Ketones Assessment & Plan (1) Chest pain Status: Acute (2) Cardiomyopathy Status: Active (3) Hypertensive heart disease Status: Active (4) AICD (automatic cardioverter/defibrillator) present Status: Acute (5) CHF (congestive heart failure) Status: Acute (6) Morbid obesity with BMI of 45.0-49.9, adult Status: Chronic (7) Type 2 diabetes mellitus Status: Chronic (8) Chest pain Status: Resolved
[2017-03-24 01:54] VITALS: O2SAT 96
[2017-03-24] MEDS: oxyCODONE 30 mg Immediate Release Tab PO PRN ×3 (02:39→10:54)
[2017-03-24] MEDS ORDERED: Levothyroxine 100 MCG TAB PO SCH (06:30)
[2017-03-24] MEDS: (Novolin R) Insulin Human Regular 100 units/ml vial SC SCH (08:28)
[2017-03-24 09:27] VITALS: BP 111/58; PULSE 61; TEMP 97.2
[2017-03-24] MEDS ORDERED: Influenza Vaccine 60 mcg/0.5 mL SYR (4YR UP) IM ONE (11:02)
--- NOTE | 2017-03-24 11:30 | CP.PCM.PN ---
Subjective - Date & Time of Evaluation Date of Evaluation: 03/24/17 Time of Evaluation: 11:25 - Subjective Subjective: patient seen today , awake, alert, ox3, chest pain subsides and sob improved, denies any headache, palpitation, dizziness troponin x 3 - negative Objective - Vital Signs/Intake and Output Vital Signs (last 24 hours): Temp Pulse Resp BP Pulse Ox 97.2 F L 61 20 111/58 L 96 03/24/17 09:26 03/24/17 09:26 03/24/17 09:26 03/24/17 09:26 03/24/17 09:26 Intake and Output: 03/24/17 03/24/17 06:59 18:59 Intake Total 630 Balance 630 - Medications Medications: Current Medications Apixaban (Eliquis) 5 mg PO Q12 [facility] Last Admin: 03/24/17 09:22 Dose: 5 mg Carvedilol (Coreg) 25 mg PO BID [facility] Last Admin: 03/24/17 09:22 Dose: 25 mg Clopidogrel Bisulfate (Plavix) 75 mg PO DAILY [facility] Last Admin: 03/24/17 09:22 Dose: 75 mg Digoxin (Lanoxin) 0.125 mg PO DAILY@1800 [facility] Last Admin: 03/23/17 18:12 Dose: 0.125 mg Furosemide (Lasix) 40 mg PO BID [facility] Last Admin: 03/24/17 09:22 Dose: 40 mg Hydroxychloroquine Sulfate (Plaquenil) 200 mg PO BID [facility] Last Admin: 03/24/17 09:22 Dose: 200 mg Insulin Human Regular (Novolin R) 0 unit SC [facility] PRN Reason: Protocol Last Admin: 03/24/17 08:28 Dose: 2 unit Levothyroxine Sodium (Synthroid) 100 mcg PO DAILY@0630 [facility] Last Admin: 03/24/17 05:49 Dose: 100 mcg Lisinopril (Zestril) 5 mg PO DAILY [facility] Last Admin: 03/24/17 09:22 Dose: 5 mg Nitroglycerin (Nitrostat Sl Tab) 0.4 mg SL Q5MIN PRN PRN Reason: chest pain Oxycodone HCl (Oxycodone Immediate Release Tab) 30 mg PO Q4H PRN PRN Reason: Pain, Mild (1-3) Last Admin: 03/24/17 10:54 Dose: 30 mg Rosuvastatin Calcium (Crestor) 40 mg PO HS [facility] Sitagliptin Phosphate (Januvia) 25 mg PO DAILY [facility] Last Admin: 03/24/17 09:22 Dose: 25 mg - Labs Labs: 03/23/17 10:28 03/23/17 10:28 PT 13.0 SECONDS (9.7-12.2) H 03/23/17 10:28 INR 1.1 03/23/17 10:28 APTT 29 SECONDS (21-34) 03/23/17 10:28 - Constitutional Appears: Well, No Acute Distress - Respiratory Exam Respiratory Exam: Clear to Ausculation Bilateral, NORMAL BREATHING PATTERN - Cardiovascular Exam Cardiovascular Exam: REGULAR RHYTHM, +S1 - Neurological Exam Neurological Exam: Alert, Awake, Oriented x3 Assessment and Plan - Assessment and Plan (Free Text) Assessment: 51 yr male with pmhx of CAD, Cardia Arrhythmia , CHF, COPD, Diabetes, Deep Vein Thrombosis, Emphysema, HTN, Hypercholesterolemia, Hypothyroidism, Peripheral Edema, admitted for chest pain and hypeglycemia troponin x 3 - negative ketone- negative D/w Dr. Amor, stable for discharge home today and f/u with Dr. Amor office on discharge plan discussed with patient who understands and agrees with plan
--- NOTE | 2017-03-24 11:30 | PCM.HF ---
Heart Failure Core Measure - Heart Failure Ejection Fraction: 40 % or Greater JEANNE Inhibitor Prescribed: Yes Beta-Rian Prescribed: Carvedilol Angiotensin II Receptor Rian Prescribed: No Contraindication/Reason for not providing: on JEANNE AnticoagulationTherapy for Atrial Fibrillation/Atrialflutter: Yes Aldosterone Antagonist Prescribed: No Contraindication/Reason for not providing: on lasix/ risk for hyperkalemia / ef> 40 Hydralazine Nitrate Prescribed: No Contraindication/Reason for not providing: on disgoxin for rate control / ef>40 Implantable Cardioverter Defibrillator Therapy: No Contraindication/Reason for not providing: pt has AICD Cardiac Resynchronization Therapy Prescribed: No Contraindication/Reason for not providing: pt has aicd - Follow up Will be discharged to: Home Follow Up Date (must be within 7 days from discharge): 03/26/17 Follow Up Time: 09:00
[2017-03-24 12:16] LABS: CK-MB 0.66 ng/mL (0.0-3.38)
--- NOTE | 2017-03-24 23:11 | CP.PCM.DIS ---
Provider - Provider Date of Admission: 03/23/17 11:52 Attending physician: Ousmane Amor MD Time Spent in preparation of Discharge (in minutes): 45 Diagnosis - Discharge Diagnosis (1) Chest pain Status: Acute (2) Cardiomyopathy Status: Active (3) Hypertensive heart disease Status: Active (4) AICD (automatic cardioverter/defibrillator) present Status: Acute (5) CHF (congestive heart failure) Status: Acute (6) Morbid obesity with BMI of 45.0-49.9, adult Status: Chronic (7) Type 2 diabetes mellitus Status: Chronic (8) Chest pain Status: Resolved Hospital Course - Lab Results Lab Results: Most Recent Lab Values WBC 7.4 K/uL (4.8-10.8) 03/23/17 10:28 RBC 4.51 Mil/uL (4.40-5.90) 03/23/17 10:28 Hgb 11.7 g/dL (12.0-18.0) L 03/23/17 10:28 Hct 36.7 % (35.0-51.0) 03/23/17 10:28 MCV 81.3 fL (80.0-94.0) 03/23/17 10:28 MCH 26.0 pg (27.0-31.0) L 03/23/17 10:28 MCHC 31.9 g/dL (33.0-37.0) L 03/23/17 10:28 RDW 16.7 % (11.5-14.5) H 03/23/17 10:28 Plt Count 154 K/uL (130-400) 03/23/17 10:28 MPV 9.1 fL (7.2-11.7) 03/23/17 10:28 Neut % (Auto) 77.8 % (50.0-75.0) H 03/23/17 10:28 Lymph % (Auto) 14.8 % (20.0-40.0) L 03/23/17 10:28 [place] % (Auto) 4.9 % (0.0-10.0) 03/23/17 10:28 Eos % (Auto) 1.3 % (0.0-4.0) 03/23/17 10:28 Baso % (Auto) 1.2 % (0.0-2.0) 03/23/17 10:28 Neut # 5.8 K/uL (1.8-7.0) 03/23/17 10:28 Lymph # 1.1 K/uL (1.0-4.3) 03/23/17 10:28 [place] # 0.4 K/uL (0.0-0.8) 03/23/17 10:28 Eos # 0.1 K/uL (0.0-0.7) 03/23/17 10:28 Baso # 0.1 K/uL (0.0-0.2) 03/23/17 10:28 PT 13.0 SECONDS (9.7-12.2) H 03/23/17 10:28 INR 1.1 03/23/17 10:28 APTT 29 SECONDS (21-34) 03/23/17 10:28 Sodium 131 mmol/L (132-148) L 03/23/17 10:28 Potassium 4.5 mmol/L (3.6-5.2) 03/23/17 10:28 Chloride 97 mmol/L (98-107) L 03/23/17 10:28 Carbon Dioxide 22 mmol/L (22-30) 03/23/17 10:28 Anion Gap 16 (10-20) 03/23/17 10:28 BUN 40 mg/dL (9-20) H 03/23/17 10:28 Creatinine 1.1 mg/dL (0.8-1.5) 03/23/17 10:28 Est GFR ( Amer) > 60 03/23/17 10:28 Est GFR (Non-Af Amer) > 60 03/23/17 10:28 POC Glucose (mg/dL) 222 mg/dL (65-110) H 03/24/17 06:43 Random Glucose 522 mg/dL (75-110) H* D 03/23/17 10:28 Calcium 8.5 mg/dl (8.6-10.4) L 03/23/17 10:28 Total Bilirubin 0.5 mg/dL (0.2-1.3) 03/23/17 10:28 AST 17 U/L (17-59) D 03/23/17 10:28 ALT 17 U/L (21-72) L 03/23/17 10:28 Alkaline Phosphatase 173 U/L (38-126) H 03/23/17 10:28 Total Creatine Kinase 54 U/L (55-170) L 03/24/17 11:27 CK-MB (Mass) 0.66 ng/mL (0.0-3.38) 03/24/17 11:27 Troponin I < 0.0120 ng/mL (0.00-0.120) 03/24/17 11:27 NT-Pro-B Natriuret Pep 365 pg/mL (0-450) 03/23/17 10:28 Total Protein 7.4 g/dL (6.3-8.3) 03/23/17 10:28 Albumin 3.6 g/dL (3.5-5.0) 03/23/17 10:28 Globulin 3.8 gm/dL (2.2-3.9) 03/23/17 10:28 Albumin/Globulin Ratio 0.9 (1.0-2.1) L 03/23/17 10:28 Urine Color Straw (YELLOW) 03/23/17 11:59 Urine Clarity Clear (Clear) 03/23/17 11:59 Urine pH 5.0 (5.0-8.0) 03/23/17 11:59 Ur Specific [place] 1.015 (1.003-1.030) 03/23/17 11:59 Urine Protein Negative mg/dL (NEGATIVE) 03/23/17 11:59 Urine Glucose (UA) 3+ mg/dL (Normal) H 03/23/17 11:59 Urine Ketones Negative mg/dL (NEGATIVE) 03/23/17 11:59 Urine Blood Negative (NEGATIVE) 03/23/17 11:59 Urine Nitrate Negative (NEGATIVE) 03/23/17 11:59 Urine Bilirubin Negative (NEGATIVE) 03/23/17 11:59 Urine Urobilinogen Normal mg/dL (0.2-1.0) 03/23/17 11:59 Ur Leukocyte Esterase Neg [place]/uL (Negative) 03/23/17 11:59 Urine RBC (Auto) 2 /hpf (0-3) 03/23/17 11:59 Digoxin 0.6 ng/mL (0.8-2.0) L 03/23/17 10:31 Serum Ketones Negative (NEGATIVE) 03/23/17 10:28 - Hospital Course Hospital Course: 51 yr male with pmhx of CAD, Cardia Arrhythmia , CHF, COPD, Diabetes, Deep Vein Thrombosis, Emphysema, HTN, Hypercholesterolemia, Hypothyroidism, Peripheral Edema, admitted for chest pain and hypeglycemia troponin x 3 - negative ketone- negative pt stable for discharge home today and f/u with me in office on discharge plan discussed with patient who understands and agrees with plan Discharge Exam - Head Exam Head Exam: ATRAUMATIC, NORMAL INSPECTION, NORMOCEPHALIC - Eye Exam Eye Exam: EOMI, Normal appearance, PERRL Pupil Exam: NORMAL ACCOMODATION, PERRL - ENT Exam ENT Exam: Mucous Membranes Moist - Respiratory Exam Respiratory Exam: Clear to PA & Lateral, NORMAL BREATHING PATTERN - Cardiovascular Exam Cardiovascular Exam: REGULAR RHYTHM, +S1, +S2 - GI/Abdominal Exam GI & Abdominal Exam: Normal Bowel Sounds - Rectal Exam Rectal Exam: Deferred - Neurological Exam Neurological exam: Alert, CN II-XII Intact, Normal Gait, Oriented x3, Reflexes Normal - Psychiatric Exam Psychiatric exam: Normal Affect, Normal Mood - Skin Skin Exam: Dry, Intact, Normal Color, Warm Discharge Plan - Discharge Medications Prescriptions: SITagliptin [Januvia] 50 mg PO DAILY #30 tab Digoxin [Lanoxin] 0.125 mg PO DAILY@1800 #30 tab Promethazine [Phenergan Syrup] 6.25 mg PO Q6 PRN #8 oz PRN Reason: Cough Hydroxychloroquine Sulfate [Plaquenil] 200 mg PO BID #60 tablet - Follow Up Plan Condition: STABLE Disposition: HOME/ ROUTINE Instructions: Hydroxychloroquine (By mouth), Digoxin (By mouth), Promethazine ( By mouth), Sitagliptin (By mouth), Heart Failure (DC), Chest Pain (DC), How to Stop Smoking (DC), Heart Healthy Diet (DC), Weight Management (DC), Basic Carbohydrate Counting (DC), Meal Planning with the Plate Method (DC), Meal Planning with Diabetes Exchanges (DC) Additional Instructions: Please f/u with Dr. Amor office on continue medication as per Med.rec. Please meat pickler medication as per med.rec Activity as tolerated. Referrals: Ousmane Amor MD [Staff Provider] - 1 Week
--- NOTE | 2017-03-24 23:14 | CARD ---
APPROVED REPORT EKG Measurement Heart [id number] CO [id number] <Conclusion> Atrial-sensed ventricular-paced rhythm Abnormal ECG
== END 2017-03-24 12:09 | disposition home or self-care (01) ==
LOC: C.ER 09:31 → C.9E 11:52 → C.6T 14:36
PROVIDERS: ADMIT Internal Medicine; ATTEND Internal Medicine
DX: R07.89 Other chest pain (principal); I11.0 Hypertensive heart disease with heart failure; I25.10 Atherosclerotic heart disease of native coronary artery without angina pectoris; E11.65 Type 2 diabetes mellitus with hyperglycemia; I50.9 Heart failure, unspecified; I42.9 Cardiomyopathy, unspecified; I48.91 Unspecified atrial fibrillation; E03.9 Hypothyroidism, unspecified; E66.01 Morbid (severe) obesity due to excess calories; J43.9 Emphysema, unspecified; E78.00 Pure hypercholesterolemia, unspecified; G47.30 Sleep apnea, unspecified; G89.29 Other chronic pain; Z68.42 Body mass index [BMI] 45.0-49.9, adult; Z86.73 Personal history of transient ischemic attack (TIA), and cerebral infarction without residual deficits; Z87.891 Personal history of nicotine dependence; Z95.0 Presence of cardiac pacemaker; Z95.1 Presence of aortocoronary bypass graft; Z95.5 Presence of coronary angioplasty implant and graft; Z95.810 Presence of automatic (implantable) cardiac defibrillator; Z87.01 Personal history of pneumonia (recurrent)
CPT/HCPCS: 36415; 71045; 80053; 80162; 81001; 82009; 82948; 83880; 84484; 85025; 85610; 85730; 90674; 93005; 94660; 96360; 99285; G0008; G0378; J7040

== ENCOUNTER 2017-04-18 17:44 | Inpatient (IN) | payer MEDICARE, OTHER ==
[2017-04-18 17:44] VITALS: BMI 46.4
[2017-04-18 20:49] LABS: BASO # 0.1 K/uL (0.0-0.2); EOS # 0.2 K/uL (0.0-0.7); EOS % 2.4 % (0.0-4.0); LYMPH # 1.8 K/uL (1.0-4.3); LYMPH % 26.9 % (20.0-40.0); MEAN CELL VOLUME 81.2 fL (80.0-94.0); MEAN CORPUSCULAR HEMOGLOBIN 26.2 pg (27.0-31.0); MEAN CORPUSCULAR HGB CONC 32.3 g/dL (33.0-37.0); MEAN PLATELET VOLUME 8.7 fL (7.2-11.7); MONO # 0.6 K/uL (0.0-0.8); MONO % 8.4 % (0.0-10.0); NEUT # 4.2 K/uL (1.8-7.0); NEUT % 61.3 % (50.0-75.0); NRBC % 0.2 % (0.0-2.0); RBC 4.2 Mil/uL (4.40-5.90); RED CELL DISTRIBUTION WIDTH 16.3 % (11.5-14.5); WHITE BLOOD COUNT 6.8 K/uL (4.8-10.8)
[2017-04-18 21:01] LABS: ALB/GLOB RATIO 0.9 (1.0-2.1); ALBUMIN 3.7 g/dL (3.5-5.0); ALT/SGPT 21 U/L (21-72); AST/SGOT 20 U/L (17-59); BLOOD UREA NITROGEN 50 mg/dL (9-20); GFR AFRICAN-AMERICAN > 60; GFR NON-AFRICAN AMERICAN 59
[2017-04-18 21:12] LABS: B-TYPE NATRIURETIC PEPTIDE 372 pg/mL (0-450)
--- NOTE | 2017-04-18 21:19 | C.PDOC ---
Time Seen by Provider: 04/18/17 19:19 Chief Complaint (Nursing): Chest Pain History Per: Patient Onset/Duration Of Symptoms: Hrs (few) Current Symptoms Are (Timing): Still Present Severity: Moderate Associated Symptoms: Dyspnea, Other (Lightheadedness). denies: Syncope Modifying Factors: Other Indicated Below Additional History Per: Prior Records Past Medical History Reviewed: Historical Data, Nursing Documentation, Vital Signs Vital Signs: Last Vital Signs Temp 98.1 F 04/18/17 21:40 Pulse 83 04/18/17 21:40 Resp 20 04/18/17 21:40 BP 136/88 04/18/17 21:40 Pulse Ox 96 04/18/17 21:40 - Medical History PMH: Anxiety, Atrial Fibrillation, Back Problems, CAD, Cardia Arrhythmia (AFIB) , CHF, COPD, Diabetes, Deep Vein Thrombosis, Emphysema, Graves' Disease, HTN, Hypercholesterolemia, Hypothyroidism, Peripheral Edema, Pneumonia, Sleep Apnea, TIA Surgical History: CABG (2008), Coronary Stent (3 Stents Prior to Quadruple Bypass), Pacemaker - [facility] Procedures ASSISTANCE WITH RESPIRATORY VENTILATION, 24-96 HRS, CPAP (10/15/15) INJECT/INFUSE NEC (10/09/12) Family History: States: Unknown Family Hx - Social History Hx Tobacco Use: Yes Hx Alcohol Use: No Hx Substance Use: No - Immunization History Hx Tetanus Toxoid Vaccination: No Hx Influenza Vaccination: No Hx Pneumococcal Vaccination: Yes Review Of Systems Except As Marked, All Systems Reviewed And Found Negative. Constitutional: Negative for: Fever ENT: Negative for: Nose Congestion, Throat Pain Cardiovascular: Positive for: Chest Pain, Edema, Light Headedness Respiratory: Positive for: Shortness of Breath. Negative for: Hemoptysis Gastrointestinal: Negative for: Vomiting, Abdominal Pain Musculoskeletal: Negative for: Neck Pain Neurological: Negative for: Weakness, Numbness Physical Exam - Physical Exam Appears: No Acute Distress, Chronically Ill Skin: Warm, Dry Head: Atraumatic, Normacephalic Eye(s): bilateral: PERRL, EOMI Neck: Normal ROM, Supple Cardiovascular: Rhythm Regular Respiratory: Normal Breath Sounds, No Accessory Muscle Use Gastrointestinal/Abdominal: Soft, No Tenderness Extremity: Normal ROM, Pedal Edema Neurological/Psych: Oriented x3, Normal Motor, Normal Sensation ED Course And Treatment - Laboratory Results Result Diagrams: 04/18/17 20:44 04/18/17 20:44 Lab Interpretation: No Changes Compared To Prior Results ECG: Interpreted By Me, Viewed By Me ECG Rhythm: AV Paced, Nonspecific Changes ECG Interpretation: No Changes From Prior Rate From EC O2 Sat by Pulse Oximetry: 97 Pulse Ox Interpretation: Normal - Radiology CXR: Interpreted by Me, Viewed By Me CXR Interpretation: Yes: Cardiomegaly Progress Note: Pt states that he already took all his medications today ( including aspirin and plavix). Progress - Interventions Interventions:: Observation, Oxygen - Medications Administered Oral: Aspirin (taken at home prior to arrival) - Data Reviewed Data Reviewed: Lab, Diagnostic imaging, EKG, Old records - Continuity of Care Discussed patient case with:: Patient, ED Nurse, PMD Disposition Discussed With : Ousmane Amor Comment: He accepted pt on his service. Doctor Will See Patient In The: Hospital - Disposition Disposition: HOSPITALIZED Disposition Time: 22:04 Condition: FAIR - Clinical Impression Clinical Impression: Chest pain
[2017-04-19 00:53] LABS: BARBITURATES, UR NEGATIVE (NEGATIVE); BENZODIAZEPINES, UR NEGATIVE (NEGATIVE); PHENCYCLIDINE, UR NEGATIVE (NEGATIVE)
[2017-04-19 01:10] LABS: OPIATES, UR POSITIVE (NEGATIVE)
[2017-04-19] MEDS ORDERED: oxyCODONE 30 mg Immediate Release Tab ONE ×4 (01:16→15:47)
[2017-04-19] MEDS ORDERED: oxyCODONE 5 mg Immediate Release Tab ONE (01:16)
[2017-04-19] MEDS: oxyCODONE 30 mg Immediate Release Tab PO PRN ×5 (01:18→20:55)
[2017-04-19] MEDS: Levothyroxine 100 MCG TAB PO SCH (06:55)
[2017-04-19 07:25] LABS: CK-MB 0.52 ng/mL (0.0-3.38)
--- NOTE | 2017-04-19 08:33 | RAD ---
PROCEDURE: CHEST RADIOGRAPH, 1 VIEW HISTORY: chest pain COMPARISON: Comparison is made with 03/23/2017 FINDINGS: LUNGS: [id number] pulmonary venous congestion is noted. PLEURA: No evidence of significant pleural effusion. CARDIOVASCULAR: Post sternotomy changes are again seen. The cardiac silhouette is upper normal in size. There is left-sided pacemaker seen in place. Multiple wires seen overlying the cardiac silhouette. . OSSEOUS STRUCTURES: No significant abnormalities. VISUALIZED UPPER ABDOMEN: Normal. OTHER FINDINGS: None. IMPRESSION: [id number] pulmonary vascular congestion.
[2017-04-19] MEDS: (Novolin R) Insulin Human Regular 100 units/ml vial SC SCH ×4 (08:37→22:36)
[2017-04-19] MEDS ORDERED: (Novolin R) Insulin Human Regular 100 units/ml vial ONE ×2 (08:37→13:24)
[2017-04-19 14:36] LABS: CK-MB 0.43 ng/mL (0.0-3.38)
[2017-04-19] MEDS: Digoxin 125 mcg (0.125 mg) Tab PO SCH (17:27)
--- NOTE | 2017-04-19 20:56 | CP.PCM.HP ---
History of Present Illness - History of Present Illness History of Present Illness: CC: Chest pain HPI: This is a 51 year old AA male well known to me with PMH of Anxiety, Atrial Fibrillation, Back Problems, CAD, Cardia Arrhythmia (AFIB), CHF, COPD, Diabetes , Deep Vein Thrombosis, Emphysema, Graves' Disease, HTN, Hypercholesterolemia, Hypothyroidism, Peripheral Edema, Pneumonia, Sleep Apnea, TIA CABG (2008), Coronary Stent (3 Stents Prior to Quadruple Bypass), Pacemaker, he is been followed up by language pathologist and he is complaint with diet,medication and follow up came in with h/o chest pain that is non exertional, constant, pt denies any diaphoresis, nausea, vomitting , radiating pain in limbs, pt has nasal congestion, chronic cough,skin has chronic changes and chest has multiple scars of previous surgeries Present on Admission - Present on Admission Any Indicators Present on Admission: Yes Review of Systems - Review of Systems Systems not reviewed;Unavailable: Acuity of Condition - Constitutional Constitutional: Fatigue, Lethargy, Weakness. absent: As Per HPI, Anorexia, Chills, Daytime Sleepiness, Excessive Sweating, Fever, Frequent Falls, Headache , Increased Appetite, Malaise, Night Sweats, Snoring, Sleep Apnea, Weight Gain, Weight Loss, Other - EENT Eyes: Itchy Eyes. absent: As Per HPI, Blind Spots, Blurred Vision, Change in Vision, Decreased Night Vision, Diplopia, Discharge, Dry Eye, Exophthalmos, Floaters, Irritation, Loss of Peripheral Vision, Pain, Photophobia, Requires Corrective Lenses, Sees Flashes, Spots in Vision, Tunnel Vision, Other Visual Disturbances, Loss of Vision, Other Nose/Mouth/Throat: Nasal Congestion. absent: As Per HPI, Epistaxis, Nasal Discharge, Nasal Obstruction, Nasal Trauma, Nose Pain, Post Nasal Drip, Sinus Pain, Sinus Pressure, Bleeding Gums, Change in Voice, Dental Pain, Dry Mouth, Dysphagia, Halitosis, Hoarsness, Lip Swelling, Mouth Lesions, Mouth Pain, Odynophagia, Sore Throat, Throat Swelling, Tongue Swelling, Facial Pain, Neck Pain, Neck Mass, Other - Cardiovascular Cardiovascular: Chest Pain at Rest, Dyspnea. absent: As Per HPI, Acrocyanosis, Chest Pain, Chest Pain with Activity, Claudication, Diaphoresis, Dyspnea on Exertion, Edema, Irregular Heart Rhythm, Pain Radiating to Arm/Neck/Jaw, Leg Edema, Leg Ulcers, Lightheadedness, Orthopnea, Palpitations, Paroxysmal Nocturnal Dyspnea, Pedal Edema, Radiating Pain, Rapid Heart Rate, Slow Heart Rate, Syncope, Other - Respiratory Respiratory: Cough. absent: As Per HPI, Dyspnea, Hemoptysis, Dyspnea on Exertion, Wheezing, Snoring, Stridor, Pain on Inspiration, Chest Congestion, Excessive Mucous Production, Change in Mucous Color, Pain with Coughing, Other - Gastrointestinal Gastrointestinal: absent: As Per HPI, Abdominal Pain, Belching, Bloating, Change in Bowel Habits, Change in Stool Character, Coffee Ground Emesis, Constipation, Cramping, Diarrhea, Dyspepsia, Dysphagia, Early Satiety, Excessive Flatus, Fecal Incontinence, Heartburn, Hematemesis, Hematochezia, Loose Stools, Melena, Nausea, Odynophagia, Temesmus, Vomiting, Other - Genitourinary Genitourinary: absent: As Per HPI, Change in Urinary Stream, Difficulty Urinating, Dysuria, Flank Pain, Hematuria, Pyuria, Nocturia, Urinary Incontinence, Urinary Frequency, Urinary Hesitance, Urinary Urgency, Voiding Freq/Small Amts, Freq UTI, Hx Renal/Bladder Calculi, Hx /Renal Surgery, Bladder Distension, Other Past Patient History - Infectious Disease Hx of Infectious Diseases: None - Past Medical History & Family History Past Medical History?: Yes - Past Social History Smoking Status: Light Smoker < 10 Cigarettes Daily - CARDIAC Hx Atrial Fibrillation: Yes Hx Cardia Arrhythmia: Yes (AFIB) Hx Congestive Heart Failure: Yes Hx Hypercholesterolemia: Yes Hx Hypertension: Yes Hx Pacemaker: Yes Hx Peripheral Edema: Yes - PULMONARY Hx Chronic Obstructive Pulmonary Disease (COPD): Yes Hx Emphysema: Yes Hx Pneumonia: Yes Hx Sleep Apnea: Yes - NEUROLOGICAL Hx Transient Ischemic Attacks (TIA): Yes - HEENT Hx HEENT Problems: No - RENAL Hx Chronic Kidney Disease: No - ENDOCRINE/METABOLIC Hx Hypothyroidism: Yes - HEMATOLOGICAL/ONCOLOGICAL Hx Blood Disorders: Yes Hx Blood Transfusions: Yes - INTEGUMENTARY Hx Dermatological Problems: No - MUSCULOSKELETAL/RHEUMATOLOGICAL Hx Musculoskeletal Disorders: No Hx Falls: No - GASTROINTESTINAL Hx Gastrointestinal Disorders: No - GENITOURINARY/GYNECOLOGICAL Hx Genitourinary Disorders: No - PSYCHIATRIC Hx Anxiety: Yes Hx Substance Use: No - SURGICAL HISTORY Hx Coronary Artery Bypass Graft: Yes (2008) Hx Coronary Stent: Yes (3 Stents Prior to Quadruple Bypass) - ANESTHESIA Hx Anesthesia: Yes Hx Anesthesia Reactions: No Hx Malignant Hyperthermia: No Meds Home Medications: Home Medication List Medication Instructions Recorded Confirmed Type SITagliptin [Januvia] 50 mg PO DAILY tab 04/19/17 Rx Allergies/Adverse Reactions: Allergies Allergy/AdvReac Type Severity Reaction Status Date / Time No Known Drug Allergies Allergy n/a Verified 03/06/17 15:50 Physical Exam - Constitutional Appears: No Acute Distress - Eye Exam Eye Exam: EOMI, Normal appearance, PERRL Pupil Exam: NORMAL ACCOMODATION, PERRL - Cardiovascular Exam Cardiovascular Exam: +S1, +S2, Systolic Murmur Additional comments: 3/6 ESM at apex - GI/Abdominal Exam GI & Abdominal Exam: Normal Bowel Sounds, Soft. absent: Tenderness - Extremities Exam Extremities exam: Positive for: pedal edema Additional comments: +3 pitting edema - Skin Additional comments: chronic changes in b/l LE multiple midline scars on chest AICD in ifraclavicular fossa Results - Vital Signs Recent Vital Signs: Last Vital Signs Temp 98.6 F 04/19/17 19:26 Pulse 79 04/19/17 19:26 Resp 14 04/19/17 19:26 BP 108/65 04/19/17 19:26 Pulse Ox 97 04/19/17 19:26 - Labs Result Diagrams: 04/18/17 20:44 04/18/17 20:44 Labs: Laboratory Results - last 24 hr 04/18/17 04/18/17 04/18/17 20:44 20:44 20:44 WBC 6.8 RBC 4.20 L Hgb 11.0 L Hct 34.1 L MCV 81.2 MCH 26.2 L MCHC 32.3 L RDW 16.3 H Plt Count 208 MPV 8.7 Neut % (Auto) 61.3 Lymph % (Auto) 26.9 [place] % (Auto) 8.4 Eos % (Auto) 2.4 Baso % (Auto) 1.0 Neut # (Auto) 4.2 Lymph # (Auto) 1.8 [place] # (Auto) 0.6 Eos # (Auto) 0.2 Baso # (Auto) 0.1 Sodium 132 Potassium 4.3 Chloride 97 L Carbon Dioxide 23 Anion Gap 16 BUN 50 H Creatinine 1.3 Est GFR ( Amer) > 60 Est GFR (Non-Af Amer) 59 POC Glucose (mg/dL) Random Glucose 362 H Calcium 9.0 Total Bilirubin 0.4 AST 20 ALT 21 D Alkaline Phosphatase 143 H Total Creatine Kinase CK-MB (Mass) Troponin I 0.0170 NT-Pro-B Natriuret Pep 372 Total Protein 7.8 Albumin 3.7 Globulin 4.1 H Albumin/Globulin Ratio 0.9 L Digoxin 0.4 L Urine Opiates Screen Urine Methadone Screen Ur Barbiturates Screen Ur Phencyclidine Scrn Ur Amphetamines Screen U Benzodiazepines Scrn U Oth Cocaine Metabols U Cannabinoids Screen 04/19/17 04/19/17 04/19/17 00:26 06:56 07:32 WBC RBC Hgb Hct MCV MCH MCHC RDW Plt Count MPV Neut % (Auto) Lymph % (Auto) [place] % (Auto) Eos % (Auto) Baso % (Auto) Neut # (Auto) Lymph # (Auto) [place] # (Auto) Eos # (Auto) Baso # (Auto) Sodium Potassium Chloride Carbon Dioxide Anion Gap BUN Creatinine Est GFR ( Amer) Est GFR (Non-Af Amer) POC Glucose (mg/dL) 295 H Random Glucose Calcium Total Bilirubin AST ALT Alkaline Phosphatase Total Creatine Kinase 74 CK-MB (Mass) 0.52 Troponin I < 0.0120 NT-Pro-B Natriuret Pep Total Protein Albumin Globulin Albumin/Globulin Ratio Digoxin Urine Opiates Screen Positive H Urine Methadone Screen Negative Ur Barbiturates Screen Negative Ur Phencyclidine Scrn Negative Ur Amphetamines Screen Negative U Benzodiazepines Scrn Negative U Oth Cocaine Metabols Negative U Cannabinoids Screen Negative 04/19/17 04/19/17 12:21 14:05 WBC RBC Hgb Hct MCV MCH MCHC RDW Plt Count MPV Neut % (Auto) Lymph % (Auto) [place] % (Auto) Eos % (Auto) Baso % (Auto) Neut # (Auto) Lymph # (Auto) [place] # (Auto) Eos # (Auto) Baso # (Auto) Sodium Potassium Chloride Carbon Dioxide Anion Gap BUN Creatinine Est GFR ( Amer) Est GFR (Non-Af Amer) POC Glucose (mg/dL) 319 H Random Glucose Calcium Total Bilirubin AST ALT Alkaline Phosphatase Total Creatine Kinase 74 CK-MB (Mass) 0.43 Troponin I < 0.0120 NT-Pro-B Natriuret Pep Total Protein Albumin Globulin Albumin/Globulin Ratio Digoxin Urine Opiates Screen Urine Methadone Screen Ur Barbiturates Screen Ur Phencyclidine Scrn Ur Amphetamines Screen U Benzodiazepines Scrn U Oth Cocaine Metabols U Cannabinoids Screen Assessment & Plan (1) Ischemic dilated cardiomyopathy Status: Acute (2) Chest pain Status: Acute (3) Hypertensive heart disease Status: Active (4) AICD (automatic cardioverter/defibrillator) present Status: Acute (5) CHF (congestive heart failure) Status: Acute (6) Diabetes mellitus Status: Acute (7) Allergic rhinitis Status: Acute - Assessment and Plan (Free Text) Plan: medical management
[2017-04-20] MEDS: oxyCODONE 30 mg Immediate Release Tab PO PRN ×5 (01:42→20:14)
[2017-04-20] MEDS: Levothyroxine 100 MCG TAB PO SCH (06:46)
[2017-04-20] MEDS: (Novolin R) Insulin Human Regular 100 units/ml vial SC SCH ×4 (10:33→21:42)
--- NOTE | 2017-04-20 11:48 | CP.PCM.PN ---
Subjective - Date & Time of Evaluation Date of Evaluation: 04/20/17 Time of Evaluation: 11:29 - Subjective Subjective: PT SEEN AND C/O EXERTIONAL SOB AND B/L PEDAL EDEMA. STATES HE WAS JUST GIVEN IV LASIX. NO OTHER COMPLAINTS AT THIS TIME. ON EXAM VSS; AAOX3; APPEARS COMFORTABLE SITTING UPRIGHT IN BED; BIPAP AT BEDSIDE BUT NOT IN USE; BS CTA B/L , NO SOB, RESP EASY; B/L PEDAL EDEMA +2, DRY SKIN B/ L LEGS AND FEET. CASE DISCUSSED WITH DR. BLANDON; WILL CHANGE STATUS TO INPATIENT; WILL CONSULT DR. MCKINLEY (I NOTIFIED HIM, HE WILL SEE PT DURING ROUNDS). NO FURTHER ORDERS AT THIS TIME. Objective - Vital Signs/Intake and Output Vital Signs (last 24 hours): Temp Pulse Resp BP Pulse Ox 98.1 F 86 18 147/50 L 98 04/20/17 07:00 04/20/17 07:00 04/20/17 07:00 04/20/17 10:29 04/20/17 07:00 Intake and Output: 04/20/17 04/20/17 06:59 18:59 Intake Total 360 Balance 360 - Medications Medications: Current Medications Apixaban (Eliquis) 5 mg PO Q12 [facility] Last Admin: 04/20/17 10:27 Dose: 5 mg Carvedilol (Coreg) 25 mg PO BID [facility] Last Admin: 04/20/17 10:29 Dose: 25 mg Clopidogrel Bisulfate (Plavix) 75 mg PO DAILY [facility] Last Admin: 04/20/17 10:29 Dose: 75 mg Digoxin (Digoxin) 0.125 mg PO DAILY@1800 [facility] Last Admin: 04/19/17 17:27 Dose: 0.125 mg Furosemide (Lasix) 40 mg IVP DAILY [facility] Last Admin: 04/20/17 10:29 Dose: 40 mg Hydroxychloroquine Sulfate (Plaquenil) 200 mg PO BID [facility] Last Admin: 04/20/17 10:27 Dose: 200 mg Insulin Human Regular (Novolin R) 0 unit SC ACHS [facility] PRN Reason: Protocol Last Admin: 04/20/17 10:33 Dose: 3 unit Levothyroxine Sodium (Synthroid) 100 mcg PO DAILY@0630 [facility] Last Admin: 04/20/17 06:46 Dose: 100 mcg Lisinopril (Zestril) 5 mg PO DAILY [facility] Last Admin: 04/20/17 10:27 Dose: 5 mg Metformin HCl (Glucophage Xr) 500 mg PO DAILY [facility] Last Admin: 04/20/17 10:51 Dose: Not Given Nitroglycerin (Nitrostat Sl Tab) 0.4 mg SL Q5MIN PRN PRN Reason: chest pain Oxycodone HCl (Oxycodone Immediate Release Tab) 30 mg PO Q4H PRN PRN Reason: Pain, Mild (1-3) Last Admin: 04/20/17 10:41 Dose: 30 mg Rosuvastatin Calcium (Crestor) 40 mg PO [facility] Last Admin: 04/19/17 21:03 Dose: 40 mg Sitagliptin Phosphate (Januvia) 50 mg PO DAILY [facility] Last Admin: 04/20/17 10:29 Dose: 50 mg - Labs Labs: 04/18/17 20:44 04/18/17 20:44
[2017-04-20 15:51] VITALS: RESP 20
[2017-04-20] MEDS: Digoxin 125 mcg (0.125 mg) Tab PO SCH (17:20)
[2017-04-20 17:21] VITALS: PULSE 80
--- NOTE | 2017-04-20 22:24 | CARD ---
APPROVED REPORT EKG Measurement Heart [id number] ID [id number] <Conclusion> Atrial-sensed ventricular-paced rhythm Abnormal ECG
--- NOTE | 2017-04-20 22:35 | CP.PCM.PN ---
Subjective - Date & Time of Evaluation Date of Evaluation: 04/20/17 Time of Evaluation: 17:00 - Subjective Subjective: Pt seen & examined aT bedside Objective - Vital Signs/Intake and Output Vital Signs (last 24 hours): Temp Pulse Resp BP Pulse Ox 98.3 F 78 20 126/78 96 04/20/17 15:00 04/20/17 16:00 04/20/17 15:00 04/20/17 17:21 04/20/17 15:00 - Medications Medications: Current Medications Apixaban (Eliquis) 5 mg PO Q12 [facility] Last Admin: 04/20/17 21:39 Dose: 5 mg Carvedilol (Coreg) 25 mg PO BID [facility] Last Admin: 04/20/17 17:21 Dose: 25 mg Clopidogrel Bisulfate (Plavix) 75 mg PO DAILY [facility] Last Admin: 04/20/17 10:29 Dose: 75 mg Digoxin (Digoxin) 0.125 mg PO DAILY@1800 [facility] Last Admin: 04/20/17 17:20 Dose: 0.125 mg Furosemide (Lasix) 40 mg IVP DAILY [facility] Last Admin: 04/20/17 10:29 Dose: 40 mg Hydroxychloroquine Sulfate (Plaquenil) 200 mg PO BID [facility] Last Admin: 04/20/17 17:20 Dose: 200 mg Insulin Human Regular (Novolin R) 0 unit SC [facility] PRN Reason: Protocol Last Admin: 04/20/17 21:42 Dose: Not Given Levothyroxine Sodium (Synthroid) 100 mcg PO DAILY@0630 [facility] Last Admin: 04/20/17 06:46 Dose: 100 mcg Lisinopril (Zestril) 5 mg PO DAILY [facility] Last Admin: 04/20/17 10:27 Dose: 5 mg Metformin HCl (Glucophage Xr) 500 mg PO DAILY [facility] Last Admin: 04/20/17 10:51 Dose: Not Given Nitroglycerin (Nitrostat Sl Tab) 0.4 mg SL Q5MIN PRN PRN Reason: chest pain Oxycodone HCl (Oxycodone Immediate Release Tab) 30 mg PO Q4H PRN PRN Reason: Pain, Mild (1-3) Last Admin: 04/20/17 20:14 Dose: 30 mg Rosuvastatin Calcium (Crestor) 40 mg PO [facility] Last Admin: 04/20/17 21:39 Dose: 40 mg Sitagliptin Phosphate (Januvia) 50 mg PO DAILY [facility] Last Admin: 04/20/17 10:29 Dose: 50 mg - Labs Labs: 04/18/17 20:44 04/18/17 20:44 Assessment and Plan (1) Ischemic dilated cardiomyopathy Status: Acute (2) Chest pain Status: Acute (3) Hypertensive heart disease Status: Active (4) AICD (automatic cardioverter/defibrillator) present Status: Acute (5) CHF (congestive heart failure) Status: Acute (6) Diabetes mellitus Status: Acute (7) Allergic rhinitis Status: Acute
[2017-04-21] MEDS: oxyCODONE 30 mg Immediate Release Tab PO PRN ×3 (00:41→08:45)
[2017-04-21 00:58] VITALS: TEMP 98.5; O2SAT 99
--- NOTE | 2017-04-21 02:36 | CON ---
DATE: CARDIOLOGY CONSULT REASON FOR CONSULTATION: Shortness of breath. HISTORY OF PRESENT ILLNESS: The patient is 51 years old, morbidly obese, male, who has a history of coronary artery bypass surgery, an ICD placement, has a history of sleep apnea, history of lupus erythematosus, and history of multiple admissions for exacerbation of congestive heart failure as well as right heart failure. The patient also has a history of diabetes mellitus, paroxysmal atrial fibrillation, and hypothyroidism. The patient presents because of worsening shortness of breath as well as what he describes as chest tightness and worsening of his leg swelling. SOCIAL HISTORY: Nonsmoker, nondrinker. He lives in his own apartment with his nephew. He is single. MEDICATIONS: Coreg 25 mg twice a day, Crestor 40 mg once a day, digoxin 0.125 mg once a day, Eliquis 5 mg twice a day, Glucophage 500 mg daily, Januvia 50 mg once daily, Lasix 20 mg intravenously once a day, Plavix 75 mg once a day, Synthroid 100 mcg once a day, Zestril 5 mg once a day, Plaquenil 200 mg twice a day, oxycodone 30 mg p.o. q.4 hours p.r.n. for pain. REVIEW OF SYSTEMS: No nausea or vomiting. The patient did experience dizziness and lightheadedness, but no syncope and no recent discharge of defibrillator. PHYSICAL EXAMINATION: GENERAL: The patient is a middle-aged male, who does not appear to be in any acute distress. VITAL SIGNS: Blood pressure 147/50, heart rate 86, temperature 98.1,respirations 18. HEENT: Normocephalic. CHEST: Bibasilar rhonchi. HEART: S1, S2 regular and distant. ABDOMEN: Soft. EXTREMITIES: 2+ nonpitting edema with significant and chronic skin changes. LABORATORY DATA: Hemoglobin and hematocrit 11.3 and 34.1. White count and platelet count are within normal limit. SMA-7: Sodium 132, potassium 4.0, chloride 97, CO2 of 23, glucose 362, BUN 50, creatinine 1.3. Three sets of troponins are not in elevated range. Urine drug screen is positive for opiates which is included in the patient's medications. Chest x-ray revealed an atrial sensed ventricular pace rhythm at rate of 88. Chest x-ray revealed cardiomegaly, mild to moderate CHF. ASSESSMENT: 1. Exacerbation of congestive heart failure. 2. Sleep apnea. 3. Morbid obesity. 4. Pulmonary hypertension. 5. Coronary artery disease, status post coronary artery bypass surgery. 6. History of deep venous thrombosis. 7. Paroxysmal atrial fibrillation. 8. Noncompliance. RECOMMENDATIONS: Continue Coreg 25 mg twice a day, digoxin 0.125 mg daily, Eliquis 5 mg twice a day. Continue Lasix 20 mg intravenously daily and discontinue that with sodium restriction because of borderline hyponatremia. Continue Zestril 5 mg daily. I did review the most recent cardiac catheterization from [facility] about two years ago, which did not warrant any coronary intervention. In the meantime, the patient was also evaluated by Dr. Walter at [facility] some two months ago and did not undergo cardiac catheterization or coronary intervention. Burke Bernstein MD
[2017-04-21] MEDS: Levothyroxine 100 MCG TAB PO SCH (05:50)
[2017-04-21] MEDS: (Novolin R) Insulin Human Regular 100 units/ml vial SC SCH (07:50)
[2017-04-21 09:00] VITALS: BP 151/84; PULSE 86
--- NOTE | 2017-04-21 09:20 | CP.PCM.PN ---
Subjective - Date & Time of Evaluation Date of Evaluation: 04/21/17 Time of Evaluation: 09:20 - Subjective Subjective: PT SEEN AND CLEARED FOR D/C HOME BY DR. MCKINLEY AND Padma BLANDON. PT STATES HE HAS ALL MEDS AT HOME AND DOES NOT NEED REFILLS. HE WILL F/U WITH DR. BLANDON IN THE OFFICE WITHIN 5-7 DAYS. NO FURTHER ORDERS. -FOLLOW UP WITH DR. BLANDON AND DR. MCKINLEY IN THEIR OFFICES WITHIN 5-7 DAYS OF DISCHARGE---CALL TODAY FOR APPOINTMENT TIME. -CONTINUE ALL OF YOUR MEDICATIONS AT HOME USUAL. -IF YOU HAVE ANY FURTHER QUESTIONS OR CONCERNS, FEEL FREE TO CONTACT DR. BLANDON 'S OFFICE. Objective - Vital Signs/Intake and Output Vital Signs (last 24 hours): Temp Pulse Resp BP Pulse Ox 98.5 F 86 20 151/84 H 99 04/21/17 08:25 04/21/17 09:00 04/21/17 08:25 04/21/17 09:02 04/21/17 08:25 Intake and Output: 04/21/17 04/21/17 06:59 18:59 Intake Total 360 Output Total 1125 Balance -765 - Medications Medications: Current Medications Apixaban (Eliquis) 5 mg PO Q12 [facility] Last Admin: 04/21/17 09:02 Dose: 5 mg Carvedilol (Coreg) 25 mg PO BID [facility] Last Admin: 04/21/17 09:02 Dose: 25 mg Clopidogrel Bisulfate (Plavix) 75 mg PO DAILY [facility] Last Admin: 04/21/17 09:01 Dose: 75 mg Digoxin (Digoxin) 0.125 mg PO DAILY@1800 [facility] Last Admin: 04/20/17 17:20 Dose: 0.125 mg Furosemide (Lasix) 40 mg IVP DAILY [facility] Last Admin: 04/21/17 09:01 Dose: 40 mg Hydroxychloroquine Sulfate (Plaquenil) 200 mg PO BID [facility] Last Admin: 04/21/17 09:01 Dose: 200 mg Insulin Human Regular (Novolin R) 0 unit SC [facility] PRN Reason: Protocol Last Admin: 04/21/17 07:50 Dose: Not Given Levothyroxine Sodium (Synthroid) 100 mcg PO DAILY@0630 [facility] Last Admin: 04/21/17 05:50 Dose: 100 mcg Lisinopril (Zestril) 5 mg PO DAILY [facility] Last Admin: 04/21/17 09:02 Dose: 5 mg Metformin HCl (Glucophage Xr) 500 mg PO DAILY [facility] Last Admin: 04/21/17 09:01 Dose: Not Given Nitroglycerin (Nitrostat Sl Tab) 0.4 mg SL Q5MIN PRN PRN Reason: chest pain Oxycodone HCl (Oxycodone Immediate Release Tab) 30 mg PO Q4H PRN PRN Reason: Pain, Mild (1-3) Last Admin: 04/21/17 08:45 Dose: 30 mg Rosuvastatin Calcium (Crestor) 40 mg PO [facility] Last Admin: 04/20/17 21:39 Dose: 40 mg Sitagliptin Phosphate (Januvia) 50 mg PO DAILY [facility] Last Admin: 04/21/17 09:01 Dose: 50 mg - Labs Labs: 04/18/17 20:44 04/18/17 20:44
--- NOTE | 2017-04-22 22:23 | CP.PCM.DIS ---
Provider - Provider Date of Admission: 04/20/17 11:24 Attending physician: Ousmane Amor MD Time Spent in preparation of Discharge (in minutes): 45 Diagnosis - Discharge Diagnosis (1) Ischemic dilated cardiomyopathy Status: Acute (2) Chest pain Status: Acute (3) Hypertensive heart disease Status: Active (4) AICD (automatic cardioverter/defibrillator) present Status: Acute (5) CHF (congestive heart failure) Status: Acute (6) Diabetes mellitus Status: Acute (7) Allergic rhinitis Status: Acute Hospital Course - Lab Results Lab Results: Most Recent Lab Values WBC 6.8 K/uL (4.8-10.8) 04/18/17 20:44 RBC 4.20 Mil/uL (4.40-5.90) L 04/18/17 20:44 Hgb 11.0 g/dL (12.0-18.0) L 04/18/17 20:44 Hct 34.1 % (35.0-51.0) L 04/18/17 20:44 MCV 81.2 fL (80.0-94.0) 04/18/17 20:44 MCH 26.2 pg (27.0-31.0) L 04/18/17 20:44 MCHC 32.3 g/dL (33.0-37.0) L 04/18/17 20:44 RDW 16.3 % (11.5-14.5) H 04/18/17 20:44 Plt Count 208 K/uL (130-400) 04/18/17 20:44 MPV 8.7 fL (7.2-11.7) 04/18/17 20:44 Neut % (Auto) 61.3 % (50.0-75.0) 04/18/17 20:44 Lymph % (Auto) 26.9 % (20.0-40.0) 04/18/17 20:44 Bowman % (Auto) 8.4 % (0.0-10.0) 04/18/17 20:44 Eos % (Auto) 2.4 % (0.0-4.0) 04/18/17 20:44 Baso % (Auto) 1.0 % (0.0-2.0) 04/18/17 20:44 Neut # (Auto) 4.2 K/uL (1.8-7.0) 04/18/17 20:44 Lymph # (Auto) 1.8 K/uL (1.0-4.3) 04/18/17 20:44 Bowman # (Auto) 0.6 K/uL (0.0-0.8) 04/18/17 20:44 Eos # (Auto) 0.2 K/uL (0.0-0.7) 04/18/17 20:44 Baso # (Auto) 0.1 K/uL (0.0-0.2) 04/18/17 20:44 Sodium 132 mmol/L (132-148) 04/18/17 20:44 Potassium 4.3 mmol/L (3.6-5.2) 04/18/17 20:44 Chloride 97 mmol/L (98-107) L 04/18/17 20:44 Carbon Dioxide 23 mmol/L (22-30) 04/18/17 20:44 Anion Gap 16 (10-20) 04/18/17 20:44 BUN 50 mg/dL (9-20) H 04/18/17 20:44 Creatinine 1.3 mg/dL (0.8-1.5) 04/18/17 20:44 Est GFR ( Amer) > 60 04/18/17 20:44 Est GFR (Non-Af Amer) 59 04/18/17 20:44 POC Glucose (mg/dL) 231 mg/dL (65-110) H 04/20/17 16:33 Random Glucose 362 mg/dL (75-110) H 04/18/17 20:44 Calcium 9.0 mg/dl (8.6-10.4) 04/18/17 20:44 Total Bilirubin 0.4 mg/dL (0.2-1.3) 04/18/17 20:44 AST 20 U/L (17-59) 04/18/17 20:44 ALT 21 U/L (21-72) D 04/18/17 20:44 Alkaline Phosphatase 143 U/L (38-126) H 04/18/17 20:44 Total Creatine Kinase 74 U/L (55-170) 04/19/17 14:05 CK-MB (Mass) 0.43 ng/mL (0.0-3.38) 04/19/17 14:05 Troponin I < 0.0120 ng/mL (0.00-0.120) 04/19/17 14:05 NT-Pro-B Natriuret Pep 372 pg/mL (0-450) 04/18/17 20:44 Total Protein 7.8 g/dL (6.3-8.3) 04/18/17 20:44 Albumin 3.7 g/dL (3.5-5.0) 04/18/17 20:44 Globulin 4.1 gm/dL (2.2-3.9) H 04/18/17 20:44 Albumin/Globulin Ratio 0.9 (1.0-2.1) L 04/18/17 20:44 Digoxin 0.4 ng/mL (0.8-2.0) L 04/18/17 20:44 Urine Opiates Screen Positive (NEGATIVE) H 04/19/17 00:26 Urine Methadone Screen Negative (NEGATIVE) 04/19/17 00:26 Ur Barbiturates Screen Negative (NEGATIVE) 04/19/17 00:26 Ur Phencyclidine Scrn Negative (NEGATIVE) 04/19/17 00:26 Ur Amphetamines Screen Negative (NEGATIVE) 04/19/17 00:26 U Benzodiazepines Scrn Negative (NEGATIVE) 04/19/17 00:26 U Oth Cocaine Metabols Negative (NEGATIVE) 04/19/17 00:26 U Cannabinoids Screen Negative (NEGATIVE) 04/19/17 00:26 - Hospital Course Hospital Course: PT SEEN AND CLEARED FOR D/C HOME BY DR. MCKINLEY AND ME. PT STATES HE HAS ALL MEDS AT HOME AND DOES NOT NEED REFILLS. HE WILL F/U WITH DR. AMOR IN THE OFFICE WITHIN 5-7 DAYS. NO FURTHER ORDERS. -FOLLOW UP WITH ME AND DR. MCKINLEY IN THEIR OFFICES WITHIN 5-7 DAYS OF DISCHARGE---CALL TODAY FOR APPOINTMENT TIME. -CONTINUE ALL OF YOUR MEDICATIONS AT HOME USUAL. -IF YOU HAVE ANY FURTHER QUESTIONS OR CONCERNS, FEEL FREE TO CONTACT MY OFFICE. Discharge Exam - Eye Exam Eye Exam: EOMI, Normal appearance, PERRL Pupil Exam: NORMAL ACCOMODATION, PERRL - ENT Exam ENT Exam: Mucous Membranes Moist - Respiratory Exam Respiratory Exam: Clear to PA & Lateral - Cardiovascular Exam Cardiovascular Exam: REGULAR RHYTHM, +S1, +S2, Systolic Murmur - GI/Abdominal Exam GI & Abdominal Exam: Normal Bowel Sounds - Rectal Exam Rectal Exam: Deferred Discharge Plan - Follow Up Plan Condition: FAIR Disposition: HOME/ ROUTINE Instructions: Heart Healthy Diet, Chest Pain, Heart Failure, Adult (DC), Low Salt Diet, Hypertension (DC), Hypertension (GEN) Additional Instructions: -FOLLOW UP WITH DR. AMOR AND DR. MCKINLEY IN THEIR OFFICES WITHIN 5-7 DAYS OF DISCHARGE---CALL TODAY FOR APPOINTMENT TIME. -CONTINUE ALL OF YOUR MEDICATIONS AT HOME USUAL. -IF YOU HAVE ANY FURTHER QUESTIONS OR CONCERNS, FEEL FREE TO CONTACT DR. AMOR 'S OFFICE. Referrals: Burke Mckinley MD [Staff Provider] - Ousmane Amor MD [Staff Provider] - 1 Week
== END 2017-04-21 10:45 | disposition home or self-care (01) | DRG 292 ==
LOC: C.ER 17:44 → C.9E 22:05 → C.6T 04-19 18:24 → OBSVTOIN 04-20 11:24
PROVIDERS: ADMIT Internal Medicine; ATTEND Internal Medicine
DX: I11.0 Hypertensive heart disease with heart failure (principal); E87.1 Hypo-osmolality and hyponatremia; I27.29 Other secondary pulmonary hypertension; I42.0 Dilated cardiomyopathy; E66.01 Morbid (severe) obesity due to excess calories; M32.9 Systemic lupus erythematosus, unspecified; F41.9 Anxiety disorder, unspecified; I50.9 Heart failure, unspecified; I48.0 Paroxysmal atrial fibrillation; I25.10 Atherosclerotic heart disease of native coronary artery without angina pectoris; J44.9 Chronic obstructive pulmonary disease, unspecified; E11.9 Type 2 diabetes mellitus without complications; E78.00 Pure hypercholesterolemia, unspecified; E03.9 Hypothyroidism, unspecified; Z86.73 Personal history of transient ischemic attack (TIA), and cerebral infarction without residual deficits; G47.30 Sleep apnea, unspecified; Z95.1 Presence of aortocoronary bypass graft; Z95.0 Presence of cardiac pacemaker; F17.210 Nicotine dependence, cigarettes, uncomplicated; I25.5 Ischemic cardiomyopathy; J30.9 Allergic rhinitis, unspecified; Z91.19 Patient's noncompliance with other medical treatment and regimen

== ENCOUNTER 2017-05-11 22:12 | Observation (INO) | payer MEDICARE, OTHER ==
[2017-05-11 22:13] VITALS: BMI 46.4
[2017-05-11] MEDS ORDERED: Aspirin 325 mg EC Tablets PO STA (22:27)
--- NOTE | 2017-05-11 22:27 | C.PDOC ---
History Of Present Illness Patient presents to the ER with a complaint of dull, achy chest wall pain and a questionable syncopal episode. Patient states has had similar episodes in the past; he has a vast PMHx which includes afib, pacemaker, COPD, diabetes, HTN, hyperthyroidism, and sleep apnea. Denies fever, chills, nausea, or vomiting. Time Seen by Provider: 05/11/17 22:25 Chief Complaint (Nursing): Chest Pain History Per: Patient History/Exam Limitations: no limitations Onset/Duration Of Symptoms: Hrs Current Symptoms Are (Timing): Still Present Severity: Moderate Pain Scale Rating Of: 4 Reports Recently: Seen In ED, Treated By A Physician, Hospitalized Recent travel outside of the [place]: No Additional History Per: Patient Past Medical History Reviewed: Historical Data, Nursing Documentation, Vital Signs Vital Signs: Last Vital Signs Temp Pulse 91 H 05/11/17 22:31 Resp 18 05/11/17 22:29 BP 104/65 05/11/17 22:31 Pulse Ox 96 05/11/17 22:29 - Medical History PMH: Anxiety, Atrial Fibrillation, Back Problems, CAD, Cardia Arrhythmia (AFIB) , CHF, COPD, Diabetes, Deep Vein Thrombosis, Emphysema, Graves' Disease, HTN, Hypercholesterolemia, Hypothyroidism, Peripheral Edema, Pneumonia, Sleep Apnea, TIA Surgical History: CABG (2008), Coronary Stent (3 Stents Prior to Quadruple Bypass), Pacemaker - [employer] Procedures ASSISTANCE WITH RESPIRATORY VENTILATION, 24-96 HRS, CPAP (10/15/15) INJECT/INFUSE NEC (10/09/12) Family History: States: No Known Family Hx - Social History Hx Tobacco Use: Yes Hx Alcohol Use: No Hx Substance Use: No - Immunization History Hx Tetanus Toxoid Vaccination: No Hx Influenza Vaccination: Yes Hx Pneumococcal Vaccination: Yes Review Of Systems Constitutional: Negative for: Fever, Chills Cardiovascular: Positive for: Chest Pain, Other (Chest wall pain) Gastrointestinal: Negative for: Nausea, Vomiting Musculoskeletal: Negative for: Back Pain Skin: Negative for: Rash Neurological: Positive for: Other (Questionable syncopal episode) Psych: Negative for: Anxiety Physical Exam - Physical Exam Appears: Non-toxic, No Acute Distress Skin: Warm, Dry Head: Normacephalic Eye(s): bilateral: Normal Inspection Oral Mucosa: Moist Neck: Supple Chest: Symmetrical, Other (Left pacemaker, CABG scar) Cardiovascular: Rhythm Regular Respiratory: No Rales, No Rhonchi, No Wheezing Gastrointestinal/Abdominal: Bowel Sounds (Active), Soft, No Tenderness Back: No CVA Tenderness Extremity: Pedal Edema (Bilateral), Other (Lower extremity venous stasis skin changes) Extremity: Bilateral: Normal ROM Pulses: Left Dorsalis Pedis: Normal, Right Dorsalis Pedis: Normal Neurological/Psych: Oriented x3 Gait: Steady ED Course And Treatment - Laboratory Results Result Diagrams: 05/11/17 23:02 05/11/17 23:02 ECG: Interpreted By Me, Viewed By Me ECG Rhythm: Sinus Rhythm (76), Nonspecific Changes (atrial sensed ventricular paced) Pulse Ox Interpretation: Normal Progress Note: CT head, EKG, blood work, CXR, and urinalysis ordered. Aspirin administered. Disposition Discussed With Dr.: Ousmane Amor Comment: accepted on hi sservice and took over the care at 12 AM Doctor Will See Patient In The: Hospital Counseled Patient/Family Regarding: Studies Performed, Diagnosis - Disposition Referrals: Ousmane Amor MD [Staff Provider] - Disposition: HOSPITALIZED Disposition Time: 00:06 Condition: FAIR Forms: [employer] (H[place]er) - POA Present On Arrival: Poor Glycemic Control - Clinical Impression Clinical Impression: Vasovagal syncope, Morbid obesity with BMI of 45.0-49.9, adult, Chest pain - Scribe Statement The provider has reviewed the documentation as recorded by the Scribe Joe Yin All medical record entries made by the Scribe were at my direction and personally dictated by me. I have reviewed the chart and agree that the record accurately reflects my personal performance of the history, physical exam, medical decision making, and the department course for this patient. I have also personally directed, reviewed, and agree with the discharge instructions and disposition. Decision To Admit - Pt Status Changed To: Hospital Disposition Of: Observation - . Bed Request Type: Telemetry Admitting Physician: Ousmane Amor Patient Diagnosis: Vasovagal syncope, Morbid obesity with BMI of 45.0-49.9, adult, Chest pain
[2017-05-11] MEDS ORDERED: Aspirin 325 mg EC Tablets PO ONE (22:56)
[2017-05-11 23:05] LABS: BASO # 0.1 K/uL (0.0-0.2); EOS # 0.1 K/uL (0.0-0.7); EOS % 1.1 % (0.0-4.0); HEMOGLOBIN 11.3 g/dL (12.0-18.0); LYMPH # 0.8 K/uL (1.0-4.3); LYMPH % 10.5 % (20.0-40.0); MEAN CELL VOLUME 82.3 fL (80.0-94.0); MEAN CORPUSCULAR HEMOGLOBIN 26.4 pg (27.0-31.0); MEAN CORPUSCULAR HGB CONC 32.1 g/dL (33.0-37.0); MEAN PLATELET VOLUME 8.9 fL (7.2-11.7); MONO # 0.3 K/uL (0.0-0.8); MONO % 3.9 % (0.0-10.0); NEUT # 6.7 K/uL (1.8-7.0); NEUT % 83.5 % (50.0-75.0); RBC 4.26 Mil/uL (4.40-5.90); RED CELL DISTRIBUTION WIDTH 16.3 % (11.5-14.5)
[2017-05-11 23:22] LABS: ALB/GLOB RATIO 0.9 (1.0-2.1); ALBUMIN 3.7 g/dL (3.5-5.0); ALT/SGPT 28 U/L (21-72); AST/SGOT 25 U/L (17-59); BLOOD UREA NITROGEN 38 mg/dL (9-20); CALCIUM 8.6 mg/dl (8.6-10.4); GFR AFRICAN-AMERICAN > 60; GFR NON-AFRICAN AMERICAN > 60
[2017-05-12] MEDS: oxyCODONE 30 mg Immediate Release Tab PO PRN ×5 (00:51→20:10)
[2017-05-12 01:53] VITALS: RESP 20
[2017-05-12] MEDS: Levothyroxine 100 MCG TAB PO SCH (05:34)
--- NOTE | 2017-05-12 08:30 | RAD ---
PROCEDURE: CHEST RADIOGRAPH, 1 VIEW HISTORY: chest pain COMPARISON: 05/16/2017 FINDINGS: LUNGS: Clear. PLEURA: No pneumothorax or pleural fluid seen. CARDIOVASCULAR: AICD. Sternotomy wires. Normal heart size. No congestive change. OSSEOUS STRUCTURES: No significant abnormalities. VISUALIZED UPPER ABDOMEN: Normal. OTHER FINDINGS: None. IMPRESSION: No active disease.
[2017-05-12 11:59] LABS: ALB/GLOB RATIO 0.9 (1.0-2.1); ALBUMIN 3.2 g/dL (3.5-5.0); ALT/SGPT 17 U/L (21-72); AST/SGOT 14 U/L (17-59); BLOOD UREA NITROGEN 28 mg/dL (9-20); CALCIUM 8.4 mg/dl (8.6-10.4); GFR AFRICAN-AMERICAN > 60; GFR NON-AFRICAN AMERICAN > 60
[2017-05-12 12:32] LABS: CK-MB 0.45 ng/mL (0.0-3.38)
[2017-05-12] MEDS: Digoxin 125 mcg (0.125 mg) Tab PO SCH (18:55)
--- NOTE | 2017-05-12 23:58 | CP.PCM.HP ---
History of Present Illness - History of Present Illness History of Present Illness: Chief Complaint : Chest Pain History Of Present Illness Patient is a 47 year old AA male with h/o AICD, morbid obesity complaint with diet ,medication followed up by cardiology at [facility] presents to the ER with a complaint of dull, achy chest wall pain and a questionable syncopal episode. Patient states has had similar episodes in the past; he has a vast PMHx which includes afib, pacemaker, COPD, diabetes, HTN, hyperthyroidism, and sleep apnea. Denies fever, chills, nausea, or vomiting. Present on Admission - Present on Admission Any Indicators Present on Admission: Yes Past Patient History - Infectious Disease Hx of Infectious Diseases: None - Past Medical History & Family History Past Medical History?: Yes - Past Social History Smoking Status: Light Smoker < 10 Cigarettes Daily - CARDIAC Hx Atrial Fibrillation: Yes Hx Cardia Arrhythmia: Yes (AFIB) Hx Congestive Heart Failure: Yes Hx Hypercholesterolemia: Yes Hx Hypertension: Yes Hx Pacemaker: Yes Hx Peripheral Edema: Yes - PULMONARY Hx Chronic Obstructive Pulmonary Disease (COPD): Yes Hx Emphysema: Yes Hx Pneumonia: Yes Hx Sleep Apnea: Yes - NEUROLOGICAL Hx Transient Ischemic Attacks (TIA): Yes - HEENT Hx HEENT Problems: No - RENAL Hx Chronic Kidney Disease: No - ENDOCRINE/METABOLIC Hx Hypothyroidism: Yes - HEMATOLOGICAL/ONCOLOGICAL Hx Blood Disorders: Yes Hx Blood Transfusions: Yes - INTEGUMENTARY Hx Dermatological Problems: No - MUSCULOSKELETAL/RHEUMATOLOGICAL Hx Musculoskeletal Disorders: No Hx Falls: No - GASTROINTESTINAL Hx Gastrointestinal Disorders: No - GENITOURINARY/GYNECOLOGICAL Hx Genitourinary Disorders: No - PSYCHIATRIC Hx Anxiety: Yes Hx Substance Use: No - SURGICAL HISTORY Hx Coronary Artery Bypass Graft: Yes (2008) Hx Coronary Stent: Yes (3 Stents Prior to Quadruple Bypass) - ANESTHESIA Hx Anesthesia: Yes Hx Anesthesia Reactions: No Hx Malignant Hyperthermia: No Meds Allergies/Adverse Reactions: Allergies Allergy/AdvReac Type Severity Reaction Status Date / Time No Known Drug Allergies Allergy n/a Verified 05/11/17 22:19 Physical Exam - Constitutional Appears: No Acute Distress, Chronically Ill - Head Exam Head Exam: ATRAUMATIC, NORMAL INSPECTION, NORMOCEPHALIC - Eye Exam Eye Exam: EOMI, Normal appearance, PERRL Pupil Exam: NORMAL ACCOMODATION, PERRL - Respiratory Exam Respiratory Exam: Clear to Auscultation Bilateral, NORMAL BREATHING PATTERN - Cardiovascular Exam Cardiovascular Exam: REGULAR RHYTHM, +S1, +S2, +S4, Systolic Murmur - GI/Abdominal Exam GI & Abdominal Exam: Normal Bowel Sounds, Soft. absent: Tenderness Results - Vital Signs Recent Vital Signs: Last Vital Signs Temp 98.0 F 05/12/17 16:09 Pulse 60 05/12/17 16:09 Resp 20 05/12/17 16:09 BP 111/74 05/12/17 18:24 Pulse Ox 100 05/12/17 16:09 - Labs Result Diagrams: 05/11/17 23:02 05/13/17 14:15 Labs: Laboratory Results - last 24 hr 05/11/17 05/12/17 05/12/17 23:52 09:31 11:19 Sodium 138 Potassium 4.2 Chloride 100 Carbon Dioxide 25 Anion Gap 18 BUN 28 H Creatinine 1.0 Est GFR ( Amer) > 60 Est GFR (Non-Af Amer) > 60 POC Glucose (mg/dL) 308 H Random Glucose 329 H Calcium 8.4 L Total Bilirubin 0.2 AST 14 L D ALT 17 L D Alkaline Phosphatase 151 H Total Creatine Kinase 62 CK-MB (Mass) 0.45 Troponin I < 0.0120 NT-Pro-B Natriuret Pep 293 Total Protein 6.8 Albumin 3.2 L Globulin 3.5 Albumin/Globulin Ratio 0.9 L 05/12/17 05/12/17 16:34 21:15 Sodium Potassium Chloride Carbon Dioxide Anion Gap BUN Creatinine Est GFR ( Amer) Est GFR (Non-Af Amer) POC Glucose (mg/dL) 348 H 355 H Random Glucose Calcium Total Bilirubin AST ALT Alkaline Phosphatase Total Creatine Kinase CK-MB (Mass) Troponin I NT-Pro-B Natriuret Pep Total Protein Albumin Globulin Albumin/Globulin Ratio Assessment & Plan (1) Chest pain Status: Acute (2) Morbid obesity with BMI of 45.0-49.9, adult Status: Chronic (3) Cardiomyopathy Status: Active (4) Hypertensive heart disease Status: Active
[2017-05-13] MEDS: oxyCODONE 30 mg Immediate Release Tab PO PRN ×6 (01:08→22:21)
[2017-05-13] MEDS: Levothyroxine 100 MCG TAB PO SCH (06:16)
--- NOTE | 2017-05-13 12:23 | CARD ---
APPROVED REPORT EKG Measurement Heart [id number] <Conclusion> Atrial-sensed ventricular-paced rhythm with premature atrial complexes with aberrant conduction Abnormal ECG
[2017-05-13 14:41] LABS: BLOOD UREA NITROGEN 24 mg/dL (9-20); CALCIUM 8.7 mg/dl (8.6-10.4); GFR AFRICAN-AMERICAN > 60; GFR NON-AFRICAN AMERICAN > 60
[2017-05-13] MEDS: Digoxin 125 mcg (0.125 mg) Tab PO SCH (18:29)
[2017-05-13 18:30] VITALS: PULSE 64
--- NOTE | 2017-05-13 23:24 | CP.PCM.PN ---
Subjective - Date & Time of Evaluation Date of Evaluation: 05/13/17 Time of Evaluation: 20:50 - Subjective Subjective: pt seen and examined at bedside. Objective - Vital Signs/Intake and Output Vital Signs (last 24 hours): Temp Pulse Resp BP Pulse Ox 97.9 F 69 20 120/77 99 05/13/17 07:00 05/13/17 16:00 05/13/17 07:00 05/13/17 18:29 05/13/17 08:00 Intake and Output: 05/13/17 05/14/17 18:59 06:59 Intake Total 600 600 Output Total 400 600 Balance 200 0 - Medications Medications: Current Medications Apixaban (Eliquis) 5 mg PO Q12 [facility] Last Admin: 05/13/17 21:16 Dose: 5 mg Carvedilol (Coreg) 25 mg PO BID [facility] Last Admin: 05/13/17 18:29 Dose: 25 mg Clopidogrel Bisulfate (Plavix) 75 mg PO DAILY [facility] Last Admin: 05/13/17 10:30 Dose: 75 mg Digoxin (Digoxin) 0.125 mg PO DAILY@1800 [facility] Last Admin: 05/13/17 18:29 Dose: 0.125 mg Furosemide (Lasix) 40 mg IVP Q12 [facility] Last Admin: 05/13/17 21:22 Dose: Not Given Hydroxychloroquine Sulfate (Plaquenil) 200 mg PO BID [facility] PRN Reason: Protocol Last Admin: 05/13/17 18:29 Dose: 200 mg Levothyroxine Sodium (Synthroid) 1,000 mcg PO DAILY@0630 [facility] Last Admin: 05/13/17 06:16 Dose: Not Given Lisinopril (Zestril) 5 mg PO DAILY [facility] Last Admin: 05/13/17 10:30 Dose: 5 mg [facility] Last Admin: 05/13/17 18:58 Dose: 500 mg Nitroglycerin (Nitrostat Sl Tab) 0.4 mg SL Q5MIN PRN PRN Reason: chest pain Oxycodone HCl (Oxycodone Immediate Release Tab) 30 mg PO Q4H PRN PRN Reason: Pain, Mild (1-3) Last Admin: 05/13/17 22:21 Dose: 30 mg Rosuvastatin Calcium (Crestor) 10 mg PO [facility] Last Admin: 05/13/17 21:16 Dose: 10 mg Sitagliptin Phosphate (Januvia) 50 mg PO DAILY [facility] Last Admin: 05/13/17 10:30 Dose: 50 mg - Labs Labs: 05/11/17 23:02 05/13/17 14:15
[2017-05-14] MEDS: oxyCODONE 30 mg Immediate Release Tab PO PRN ×2 (02:12→06:52)
[2017-05-14] MEDS: Levothyroxine 100 MCG TAB PO SCH (06:30)
[2017-05-14 08:26] VITALS: TEMP 98
[2017-05-14 08:29] VITALS: PULSE 113
[2017-05-14 09:05] VITALS: BP 112/60
[2017-05-14 09:37] VITALS: O2SAT 99
--- NOTE | 2017-05-14 10:27 | CP.PCM.PN ---
Subjective - Date & Time of Evaluation Date of Evaluation: 05/14/17 Time of Evaluation: 09:30 - Subjective Subjective: Patient seen and examined chest pain resolved, and leg edema improved , denies any sob , dizziness, palpitations No overnight events recorded on monitor oob ambulating the singh way without SOB Objective - Vital Signs/Intake and Output Vital Signs (last 24 hours): Temp Pulse Resp BP Pulse Ox 98.0 F 113 H 20 112/60 99 05/14/17 08:24 05/14/17 08:24 05/14/17 08:24 05/14/17 09:04 05/14/17 09:33 Intake and Output: 05/14/17 05/14/17 06:59 18:59 Intake Total 600 Output Total 1000 Balance -400 - Labs Labs: 05/11/17 23:02 05/13/17 14:15 Assessment and Plan - Assessment and Plan (Free Text) Assessment: A/P 51 yr old male with PMHx of afib, pacemaker, COPD, diabetes, HTN, hyperthyroidism, and sleep apnea admitted with ches pain and incr. LE swelling troponin x 3 - negative leg edema improved with diuretic D/W Dr. Neff, stable for discharge home today and f/u with his office next Thursday discharge plan discussed with patient, who understands and agrees with plan RX given
--- NOTE | 2017-05-14 10:33 | PCM.HF ---
Heart Failure Core Measure - Heart Failure Ejection Fraction: 40 % or Greater JEANNE Inhibitor Prescribed: Yes Beta-Rian Prescribed: Carvedilol Angiotensin II Receptor Rian Prescribed: No Contraindication/Reason for not providing: on JEANNE AnticoagulationTherapy for Atrial Fibrillation/Atrialflutter: Yes Aldosterone Antagonist Prescribed: No Contraindication/Reason for not providing: ef>45 Hydralazine Nitrate Prescribed: No Contraindication/Reason for not providing: ef>45 Implantable Cardioverter Defibrillator Therapy: No Contraindication/Reason for not providing: patient has ICD Cardiac Resynchronization Therapy Prescribed: No Contraindication/Reason for not providing: pt has icd - Follow up Will be discharged to: Home Follow Up Date (must be within 7 days from discharge): 05/19/17 Follow Up Time: 09:00
--- NOTE | 2017-05-14 23:10 | CP.PCM.DIS ---
Provider - Provider Date of Admission: 05/12/17 00:04 Attending physician: Ousmane Amor MD Diagnosis - Discharge Diagnosis (1) Chest pain Status: Acute (2) Morbid obesity with BMI of 45.0-49.9, adult Status: Chronic (3) Cardiomyopathy Status: Active (4) Hypertensive heart disease Status: Active Hospital Course - Lab Results Lab Results: Most Recent Lab Values WBC 8.0 K/uL (4.8-10.8) 05/11/17 23:02 RBC 4.26 Mil/uL (4.40-5.90) L 05/11/17 23:02 Hgb 11.3 g/dL (12.0-18.0) L 05/11/17 23:02 Hct 35.0 % (35.0-51.0) 05/11/17 23: MCV 82.3 fL (80.0-94.0) 05/11/17 23: MCH 26.4 pg (27.0-31.0) L 05/11/17 23: MCHC 32.1 g/dL (33.0-37.0) L 05/11/17 23:02 RDW 16.3 % (11.5-14.5) H 05/11/17 23:02 Plt Count 173 K/uL (130-400) 05/11/17 23:02 MPV 8.9 fL (7.2-11.7) 05/11/17 23:02 Neut % (Auto) 83.5 % (50.0-75.0) H 05/11/17 23:02 Lymph % (Auto) 10.5 % (20.0-40.0) L 05/11/17 23:02 [place] % (Auto) 3.9 % (0.0-10.0) 05/11/17 23:02 Eos % (Auto) 1.1 % (0.0-4.0) 05/11/17 23:02 Baso % (Auto) 1.0 % (0.0-2.0) 05/11/17 23:02 Neut # (Auto) 6.7 K/uL (1.8-7.0) 05/11/17 23: Lymph # (Auto) 0.8 K/uL (1.0-4.3) L 05/11/17 23:02 [place] # (Auto) 0.3 K/uL (0.0-0.8) 05/11/17 23:02 Eos # (Auto) 0.1 K/uL (0.0-0.7) 05/11/17 23:02 Baso # (Auto) 0.1 K/uL (0.0-0.2) 05/11/17 23:02 Sodium 136 mmol/L (132-148) 05/13/17 14:15 Potassium 4.5 mmol/L (3.6-5.2) 05/13/17 14:15 Chloride 99 mmol/L (98-107) 05/13/17 14:15 Carbon Dioxide 28 mmol/L (22-30) 05/13/17 14:15 Anion Gap 14 (10-20) 05/13/17 14:15 BUN 24 mg/dL (9-20) H 05/13/17 14:15 Creatinine 0.9 mg/dL (0.8-1.5) 05/13/17 14:15 Est GFR ( Amer) > 60 05/13/17 14:15 Est GFR (Non-Af Amer) > 60 05/13/17 14:15 POC Glucose (mg/dL) 295 mg/dL (65-110) H 05/13/17 21:25 Random Glucose 325 mg/dL (75-110) H 05/13/17 14:15 Calcium 8.7 mg/dl (8.6-10.4) 05/13/17 14:15 Total Bilirubin 0.2 mg/dL (0.2-1.3) 05/12/17 11:19 AST 14 U/L (17-59) L D 05/12/17 11:19 ALT 17 U/L (21-72) L D 05/12/17 11:19 Alkaline Phosphatase 151 U/L (38-126) H 05/12/17 11:19 Total Creatine Kinase 62 U/L (55-170) 05/12/17 11:19 CK-MB (Mass) 0.45 ng/mL (0.0-3.38) 05/12/17 11:19 Troponin I < 0.0120 ng/mL (0.00-0.120) 05/12/17 11:19 NT-Pro-B Natriuret Pep 293 pg/mL (0-450) 05/11/17 23:52 Total Protein 6.8 g/dL (6.3-8.3) 05/12/17 11:19 Albumin 3.2 g/dL (3.5-5.0) L 05/12/17 11:19 Globulin 3.5 gm/dL (2.2-3.9) 05/12/17 11:19 Albumin/Globulin Ratio 0.9 (1.0-2.1) L 05/12/17 11:19 - Hospital Course Hospital Course: A/P 51 yr old male with PMHx of afib, pacemaker, COPD, diabetes, HTN, hyperthyroidism, and sleep apnea admitted with ches pain and incr. LE swelling troponin x 3 - negative leg edema improved with diuretic Pt is stable for discharge home today and f/u with me in office next Thursday discharge plan discussed with patient, who understands and agrees with plan RX given Discharge Exam - Head Exam Head Exam: ATRAUMATIC, NORMAL INSPECTION, NORMOCEPHALIC Discharge Plan - Discharge Medications Prescriptions: Digoxin 0.125 mg PO DAILY@1800 #30 tab metFORMIN [glucOPHAGE] 500 mg PO BIDCC #60 tab Furosemide [Lasix] 40 mg PO BID #60 tab Nitroglycerin 0.4 mg SL Q5MIN PRN #14 tab.subl PRN Reason: chest pain Promethazine [Phenergan Syrup] 6.25 mg PO Q6 PRN #8 oz PRN Reason: Cough - Follow Up Plan Condition: FAIR Disposition: HOME/ ROUTINE Instructions: Chest Pain Referrals: Ousmane Amor MD [Staff Provider] -
== END 2017-05-14 10:12 | disposition home or self-care (01) ==
LOC: SUPCPDRO 22:12 → C.ER 22:12 → C.6T 05-12 00:04
PROVIDERS: ADMIT Internal Medicine; ATTEND Internal Medicine
DX: I11.0 Hypertensive heart disease with heart failure (principal); G47.30 Sleep apnea, unspecified; I25.10 Atherosclerotic heart disease of native coronary artery without angina pectoris; E66.01 Morbid (severe) obesity due to excess calories; I42.9 Cardiomyopathy, unspecified; E11.9 Type 2 diabetes mellitus without complications; E03.9 Hypothyroidism, unspecified; I48.91 Unspecified atrial fibrillation; J43.9 Emphysema, unspecified; Z68.42 Body mass index [BMI] 45.0-49.9, adult; I50.9 Heart failure, unspecified; Z87.891 Personal history of nicotine dependence; Z95.0 Presence of cardiac pacemaker
CPT/HCPCS: 36415; 71045; 80048; 80053; 82948; 83880; 84484; 85025; 93005; 99285; G0378; J1940

== ENCOUNTER 2017-06-14 09:13 | Observation (INO) | payer MEDICARE, OTHER ==
[2017-06-14 09:14] VITALS: PULSE 64; BMI 46.4
--- NOTE | 2017-06-14 09:57 | C.PDOC ---
History Of Present Illness 52 year old male, with PMHx of quadruple bypass heart surgery, presents to ED for evaluation of chest pain described as pressure that started 2 hours prior to arrival. Pt reports associated shortness of breath. Notes that he took his Aspirin this morning. Otherwise, denies diaphoresis, nausea, or vomiting. Time Seen by Provider: 06/14/17 09:30 Chief Complaint (Nursing): Chest Pain History Per: Patient History/Exam Limitations: no limitations Onset/Duration Of Symptoms: Hrs (2) Current Symptoms Are (Timing): Still Present Quality: Pressure Associated Symptoms: denies: Nausea, Diaphoresis, Syncope Modifying Factors: None Exacerbating Factors: None Alleviating Factors: None Recent travel outside of the [place]: No Additional History Per: Patient Past Medical History Reviewed: Historical Data, Nursing Documentation, Vital Signs Vital Signs: Last Vital Signs Temp 98.6 F 06/15/17 07:40 Pulse 80 06/15/17 10:00 Resp 21 06/15/17 07:40 BP 150/70 06/15/17 10:00 Pulse Ox 97 06/15/17 07:40 - Medical History PMH: Anxiety, Atrial Fibrillation, Back Problems, CAD, Cardia Arrhythmia (AFIB) , CHF, COPD, Diabetes, Deep Vein Thrombosis, Emphysema, Graves' Disease, HTN, Hypercholesterolemia, Hypothyroidism, Peripheral Edema, Pneumonia, Sleep Apnea, TIA Denies: Chronic Kidney Disease Surgical History: CABG (2008), Coronary Stent (3 Stents Prior to Quadruple Bypass), Pacemaker - [facility] Procedures ASSISTANCE WITH RESPIRATORY VENTILATION, 24-96 HRS, CPAP (10/15/15) INJECT/INFUSE NEC (10/09/12) Family History: States: Unknown Family Hx - Social History Hx Tobacco Use: Yes Hx Alcohol Use: No Hx Substance Use: No - Immunization History Hx Tetanus Toxoid Vaccination: No Hx Influenza Vaccination: Yes Hx Pneumococcal Vaccination: Yes Review Of Systems Except As Marked, All Systems Reviewed And Found Negative. Constitutional: Negative for: Fever, Chills Cardiovascular: Positive for: Chest Pain. Negative for: Palpitations, Light Headedness Respiratory: Positive for: Shortness of Breath. Negative for: Cough Gastrointestinal: Negative for: Nausea, Vomiting Physical Exam - Physical Exam Appears: Non-toxic, No Acute Distress Skin: Normal Color, Warm, Dry Head: Atraumatic, Normacephalic Eye(s): bilateral: Normal Inspection Oral Mucosa: Moist Neck: Normal ROM, Supple Chest: Symmetrical Cardiovascular: Rhythm Regular, No Murmur Respiratory: No Rales, No Rhonchi, No Wheezing, Other (diminished breath sounds bilaterally) Gastrointestinal/Abdominal: Soft, No Tenderness Extremity: Normal ROM, Pedal Edema (+2 pitting edema bilaterally) Neurological/Psych: Oriented x3, Normal Speech ED Course And Treatment - Laboratory Results Result Diagrams: 06/14/17 13:12 06/14/17 10:08 ECG: Interpreted By Me, Viewed By Me Interpretation Of ECG: Ventricular paced rhythm at 76bpm Rate From EC O2 Sat by Pulse Oximetry: 98 (RA) Pulse Ox Interpretation: Normal Medical Decision Making Medical Decision Making: Plan: EKG CXR Blood work Reassess Case discussed with Dr. Amor, will admit to tele obs. Disposition Discussed With : Ousmane Amor - Disposition Disposition: HOSPITALIZED Disposition Time: 14:22 Condition: FAIR - POA Core Measure Indicators: Chest Pain - Clinical Impression Clinical Impression: Chest pain - Scribe Statement The provider has reviewed the documentation as recorded by the Nainibchris Dyer All medical record entries made by the Nainibchris were at my direction and personally dictated by me. I have reviewed the chart and agree that the record accurately reflects my personal performance of the history, physical exam, medical decision making, and the department course for this patient. I have also personally directed, reviewed, and agree with the discharge instructions and disposition.
[2017-06-14 10:31] LABS: ALB/GLOB RATIO 0.9 (1.0-2.1); ALBUMIN 3.3 g/dL (3.5-5.0); ALT/SGPT 12 U/L (21-72); AST/SGOT 18 U/L (17-59); BLOOD UREA NITROGEN 30 mg/dL (9-20); CALCIUM 8.5 mg/dl (8.6-10.4); GFR AFRICAN-AMERICAN > 60; GFR NON-AFRICAN AMERICAN > 60
[2017-06-14 10:39] LABS: B-TYPE NATRIURETIC PEPTIDE 290 pg/mL (0-900)
[2017-06-14] MEDS ORDERED: (Novolin R) Insulin Human Regular 100 units/ml vial IV ONE (10:48)
[2017-06-14] MEDS ORDERED: (Novolin R) Insulin Human Regular 100 units/ml vial ONE (13:37)
[2017-06-14 13:42] LABS: BASO # 0.1 K/uL (0.0-0.2); BASO % 1.1 % (0.0-2.0); EOS # 0.2 K/uL (0.0-0.7); EOS % 2.4 % (0.0-4.0); HEMOGLOBIN 11.6 g/dL (12.0-18.0); LYMPH # 1.5 K/uL (1.0-4.3); LYMPH % 21.7 % (20.0-40.0); MEAN CELL VOLUME 82.5 fL (80.0-94.0); MEAN CORPUSCULAR HEMOGLOBIN 27.2 pg (27.0-31.0); MEAN PLATELET VOLUME 9.2 fL (7.2-11.7); MONO # 0.4 K/uL (0.0-0.8); MONO % 6.3 % (0.0-10.0); NEUT # 4.7 K/uL (1.8-7.0); NEUT % 68.5 % (50.0-75.0); RBC 4.25 Mil/uL (4.40-5.90); RED CELL DISTRIBUTION WIDTH 15.4 % (11.5-14.5); WHITE BLOOD COUNT 6.9 K/uL (4.8-10.8)
[2017-06-14] MEDS ORDERED: Promethazine 6.25 MG/5 ML CUP PO PRN (18:10)
[2017-06-14] MEDS ORDERED: oxyCODONE 30 mg Immediate Release Tab PO PRN (18:10)
--- NOTE | 2017-06-14 18:23 | RAD ---
PROCEDURE: CHEST RADIOGRAPH, 1 VIEW HISTORY: chest pain COMPARISON: Comparison is made to 05/11/2017 FINDINGS: LUNGS: No significant interval change in the lungs noted since the previous exam PLEURA: No pneumothorax or pleural fluid seen. CARDIOVASCULAR: Normal size of the cardiac silhouette. Again seen is left-sided pacemaker in place. The patient status post sternotomy. OSSEOUS STRUCTURES: No significant abnormalities. VISUALIZED UPPER ABDOMEN: Normal. OTHER FINDINGS: None. IMPRESSION: No significant interval change noted since the previous study.
[2017-06-14] MEDS: oxyCODONE 30 mg Immediate Release Tab PO PRN (18:53)
[2017-06-14 20:34] LABS: CK-MB 0.42 ng/mL (0.0-3.38)
--- NOTE | 2017-06-14 22:26 | CP.PCM.HP ---
History of Present Illness - History of Present Illness History of Present Illness: CC: Chest pain History Of Present Illness 52 year old AA morbidly obese male, with PMHx of HTN, sleep apnea on BIPAP machine, quadruple bypass heart surgery, presents to ED for evaluation of chest pain described as pressure that started 2 hours prior to arrival. chest pain is left precordial, pt has chronic intactable back pain, Pt reports associated shortness of breath. Notes that he took his Aspirin this morning. Otherwise, denies diaphoresis, nausea, or vomiting. Present on Admission - Present on Admission Any Indicators Present on Admission: Yes Review of Systems - Review of Systems Systems not reviewed;Unavailable: Acuity of Condition, Respiratory Distress - Constitutional Constitutional: Lethargy, Malaise - EENT Eyes: absent: As Per HPI, Blind Spots, Blurred Vision, Change in Vision, Decreased Night Vision, Diplopia, Discharge, Dry Eye, Exophthalmos, Floaters, Irritation, Itchy Eyes, Loss of Peripheral Vision, Pain, Photophobia, Requires Corrective Lenses, Sees Flashes, Spots in Vision, Tunnel Vision, Other Visual Disturbances, Loss of Vision, Other Ears: absent: As Per HPI, Decreased Hearing, Ear Discharge, Ear Pain, Tinnitus, Abnormal Hearing, Disequilibrium, Dizziness, Other Nose/Mouth/Throat: absent: As Per HPI, Epistaxis, Nasal Congestion, Nasal Discharge, Nasal Obstruction, Nasal Trauma, Nose Pain, Post Nasal Drip, Sinus Pain, Sinus Pressure, Bleeding Gums, Change in Voice, Dental Pain, Dry Mouth, Dysphagia, Halitosis, Hoarsness, Lip Swelling, Mouth Lesions, Mouth Pain, Odynophagia, Sore Throat, Throat Swelling, Tongue Swelling, Facial Pain, Neck Pain, Neck Mass, Other - Cardiovascular Cardiovascular: Chest Pain, Chest Pain at Rest, Dyspnea, Pedal Edema - Respiratory Respiratory: Cough, Dyspnea, Dyspnea on Exertion - Gastrointestinal Gastrointestinal: absent: As Per HPI, Abdominal Pain, Belching, Bloating, Change in Bowel Habits, Change in Stool Character, Coffee Ground Emesis, Constipation, Cramping, Diarrhea, Dyspepsia, Dysphagia, Early Satiety, Excessive Flatus, Fecal Incontinence, Heartburn, Hematemesis, Hematochezia, Loose Stools, Melena, Nausea, Odynophagia, Temesmus, Vomiting, Other - Genitourinary Genitourinary: absent: As Per HPI, Change in Urinary Stream, Difficulty Urinating, Dysuria, Flank Pain, Hematuria, Pyuria, Nocturia, Urinary Incontinence, Urinary Frequency, Urinary Hesitance, Urinary Urgency, Voiding Freq/Small Amts, Freq UTI, Hx Renal/Bladder Calculi, Hx /Renal Surgery, Bladder Distension, Other - Musculoskeletal Musculoskeletal: Back Pain, Muscle Weakness, Myalgias, Neck Pain - Integumentary Integumentary: absent: As Per HPI, Acne, Alopecia, Bleeding Lesions, Change in Hair, Change in Nails, Change in Pigmentation, Changing Lesions, Dry Skin, Erythema, Furuncle, Hirsutism, Lesions, New Lesions, Non-Healing Lesions, Photosensitivity, Pruritus, Rash, Skin Pain, Skin Ulcer, Sores, Striae, Swelling , Unusual Bruising, Wounds, Jaundice, Other - Neurological Neurological: Dizziness, Numbness Past Patient History - Infectious Disease Hx of Infectious Diseases: None - Past Medical History & Family History Past Medical History?: Yes - Past Social History Smoking Status: Light Smoker < 10 Cigarettes Daily - CARDIAC Hx Atrial Fibrillation: Yes Hx Cardia Arrhythmia: Yes (AFIB) Hx Congestive Heart Failure: Yes Hx Hypercholesterolemia: Yes Hx Hypertension: Yes Hx Pacemaker: Yes Hx Peripheral Edema: Yes - PULMONARY Hx Chronic Obstructive Pulmonary Disease (COPD): Yes Hx Emphysema: Yes Hx Pneumonia: Yes Hx Sleep Apnea: Yes - NEUROLOGICAL Hx Transient Ischemic Attacks (TIA): Yes - HEENT Hx HEENT Problems: No - RENAL Hx Chronic Kidney Disease: No - ENDOCRINE/METABOLIC Hx Hypothyroidism: Yes - HEMATOLOGICAL/ONCOLOGICAL Hx Blood Disorders: Yes Hx Blood Transfusions: Yes - INTEGUMENTARY Hx Dermatological Problems: No - MUSCULOSKELETAL/RHEUMATOLOGICAL Hx Musculoskeletal Disorders: No Hx Falls: No - GASTROINTESTINAL Hx Gastrointestinal Disorders: No - GENITOURINARY/GYNECOLOGICAL Hx Genitourinary Disorders: No - PSYCHIATRIC Hx Anxiety: Yes Hx Substance Use: No - SURGICAL HISTORY Hx Coronary Artery Bypass Graft: Yes (2008) Hx Coronary Stent: Yes (3 Stents Prior to Quadruple Bypass) - ANESTHESIA Hx Anesthesia: Yes Hx Anesthesia Reactions: No Hx Malignant Hyperthermia: No Meds Allergies/Adverse Reactions: Allergies Allergy/AdvReac Type Severity Reaction Status Date / Time No Known Drug Allergies Allergy n/a Verified 06/14/17 09:22 Physical Exam - Constitutional Appears: No Acute Distress, Chronically Ill - Head Exam Head Exam: ATRAUMATIC, NORMAL INSPECTION, NORMOCEPHALIC - Eye Exam Eye Exam: EOMI, Normal appearance, PERRL Pupil Exam: NORMAL ACCOMODATION, PERRL - Respiratory Exam Respiratory Exam: Clear to Auscultation Bilateral, NORMAL BREATHING PATTERN - Cardiovascular Exam Cardiovascular Exam: REGULAR RHYTHM - GI/Abdominal Exam GI & Abdominal Exam: Normal Bowel Sounds, Soft. absent: Tenderness - Rectal Exam Rectal Exam: Deferred Results - Vital Signs Recent Vital Signs: Last Vital Signs Temp 97.9 F 06/14/17 19:27 Pulse 75 06/14/17 19:27 Resp 18 06/14/17 19:27 BP 170/91 H 06/14/17 22:12 Pulse Ox 100 06/14/17 19:27 - Labs Result Diagrams: 06/14/17 13:12 06/14/17 10:08 Labs: Laboratory Results - last 24 hr 06/14/17 06/14/17 06/14/17 10:08 13:12 15:35 WBC 6.9 RBC 4.25 L Hgb 11.6 L Hct 35.1 MCV 82.5 MCH 27.2 MCHC 33.0 RDW 15.4 H Plt Count 179 MPV 9.2 Neut % (Auto) 68.5 Lymph % (Auto) 21.7 [place] % (Auto) 6.3 Eos % (Auto) 2.4 Baso % (Auto) 1.1 Neut # (Auto) 4.7 Lymph # (Auto) 1.5 [place] # (Auto) 0.4 Eos # (Auto) 0.2 Baso # (Auto) 0.1 Sodium 137 Potassium 4.2 Chloride 99 Carbon Dioxide 24 Anion Gap 18 BUN 30 H Creatinine 1.2 Est GFR ( Amer) > 60 Est GFR (Non-Af Amer) > 60 POC Glucose (mg/dL) 207 H Random Glucose 390 H Calcium 8.5 L Total Bilirubin 0.4 AST 18 ALT 12 L D Alkaline Phosphatase 148 H Total Creatine Kinase CK-MB (Mass) Troponin I < 0.0120 NT-Pro-B Natriuret Pep 290 Total Protein 6.9 Albumin 3.3 L Globulin 3.6 Albumin/Globulin Ratio 0.9 L 06/14/17 06/14/17 06/14/17 16:25 20:01 21:13 WBC RBC Hgb Hct MCV MCH MCHC RDW Plt Count MPV Neut % (Auto) Lymph % (Auto) [place] % (Auto) Eos % (Auto) Baso % (Auto) Neut # (Auto) Lymph # (Auto) [place] # (Auto) Eos # (Auto) Baso # (Auto) Sodium Potassium Chloride Carbon Dioxide Anion Gap BUN Creatinine Est GFR ( Amer) Est GFR (Non-Af Amer) POC Glucose (mg/dL) 215 H 303 H Random Glucose Calcium Total Bilirubin AST ALT Alkaline Phosphatase Total Creatine Kinase 104 CK-MB (Mass) 0.42 Troponin I < 0.0120 NT-Pro-B Natriuret Pep Total Protein Albumin Globulin Albumin/Globulin Ratio Assessment & Plan (1) Chest pain Status: Acute (2) Cardiomyopathy Status: Active (3) Hypertension screening Status: Active (4) Hypertensive heart disease Status: Active (5) AICD (automatic cardioverter/defibrillator) present Status: Acute (6) Chronic pain syndrome Status: Acute (7) Diabetes mellitus Status: Acute (8) HTN (hypertension) Status: Chronic Priority: Medium (9) Morbid obesity with BMI of 45.0-49.9, adult Status: Chronic Priority: High
[2017-06-15] MEDS: oxyCODONE 30 mg Immediate Release Tab PO PRN ×2 (01:01→07:57)
[2017-06-15] MEDS ORDERED: Levothyroxine 100 MCG TAB PO SCH (06:30)
[2017-06-15] MEDS ORDERED: (Novolin R) Insulin Human Regular 100 units/ml vial SC SCH (07:30)
[2017-06-15 07:41] VITALS: RESP 21; TEMP 98.6
--- NOTE | 2017-06-15 11:56 | PCM.HF ---
Heart Failure Core Measure - Heart Failure Ejection Fraction: 40 % or Greater JEANNE Inhibitor Prescribed: Yes Beta-Rian Prescribed: Carvedilol Angiotensin II Receptor Rian Prescribed: No Contraindication/Reason for not providing: on jeanne AnticoagulationTherapy for Atrial Fibrillation/Atrialflutter: Yes Aldosterone Antagonist Prescribed: No Contraindication/Reason for not providing: ef >40 Hydralazine Nitrate Prescribed: No Contraindication/Reason for not providing: ef >40 Implantable Cardioverter Defibrillator Therapy: No Contraindication/Reason for not providing: has aicd Cardiac Resynchronization Therapy Prescribed: No Contraindication/Reason for not providing: has aicd - Follow up Will be discharged to: Home Follow Up Date (must be within 7 days from discharge): 06/19/17 Follow Up Time: 09:00
--- NOTE | 2017-06-15 12:15 | CP.PCM.PN ---
Subjective - Date & Time of Evaluation Date of Evaluation: 06/15/17 Time of Evaluation: 12:15 - Subjective Subjective: PT REQUESTING TO BE D/C HOME TODAY. PT DENIES ANY CHEST PAIN, SOB; NO ACUTE DISTRESS. STATES HE HAS AN APPT THIS AFTERNOON WITH HIS MD IN [place] AND WOULD LIKE TO LEAVE TO MAKE IT ON TIME. LABS REVIEWED; VITALS REVIEWED; EXAM UNREMARKABLE AT THIS TIME. OK TO D/C PER DR. BLANDON. REFILL RX GIVEN FOR PROMETHAZINE AND NITRO TABS. NO FURTHER ORDERS. Objective - Vital Signs/Intake and Output Vital Signs (last 24 hours): Temp Pulse Resp BP Pulse Ox 98.6 F 92 H 21 164/106 H 97 06/15/17 07:40 06/15/17 07:40 06/15/17 07:40 06/15/17 09:10 06/15/17 07:40 - Labs Labs: 06/14/17 13:12 06/14/17 10:08
[2017-06-15 12:30] VITALS: BP 150/70; PULSE 80
[2017-06-15] MEDS ORDERED: Digoxin 125 mcg (0.125 mg) Tab PO SCH (18:00)
--- NOTE | 2017-06-15 23:56 | CP.PCM.DIS ---
Provider - Provider Date of Admission: 06/14/17 14:22 Attending physician: Ousmane Amor MD Time Spent in preparation of Discharge (in minutes): 45 Diagnosis - Discharge Diagnosis (1) Chest pain Status: Acute (2) Cardiomyopathy Status: Active (3) Hypertension screening Status: Active (4) Hypertensive heart disease Status: Active (5) AICD (automatic cardioverter/defibrillator) present Status: Acute (6) Chronic pain syndrome Status: Acute (7) Diabetes mellitus Status: Acute (8) HTN (hypertension) Status: Chronic Priority: Medium (9) Morbid obesity with BMI of 45.0-49.9, adult Status: Chronic Priority: High Hospital Course - Lab Results Lab Results: Most Recent Lab Values WBC 6.9 K/uL (4.8-10.8) 06/14/17 13:12 RBC 4.25 Mil/uL (4.40-5.90) L 06/14/17 13:12 Hgb 11.6 g/dL (12.0-18.0) L 06/14/17 13:12 Hct 35.1 % (35.0-51.0) 06/14/17 13:12 MCV 82.5 fL (80.0-94.0) 06/14/17 13:12 MCH 27.2 pg (27.0-31.0) 06/14/17 13:12 MCHC 33.0 g/dL (33.0-37.0) 06/14/17 13:12 RDW 15.4 % (11.5-14.5) H 06/14/17 13:12 Plt Count 179 K/uL (130-400) 06/14/17 13:12 MPV 9.2 fL (7.2-11.7) 06/14/17 13:12 Neut % (Auto) 68.5 % (50.0-75.0) 06/14/17 13:12 Lymph % (Auto) 21.7 % (20.0-40.0) 06/14/17 13:12 [place] % (Auto) 6.3 % (0.0-10.0) 06/14/17 13:12 Eos % (Auto) 2.4 % (0.0-4.0) 06/14/17 13:12 Baso % (Auto) 1.1 % (0.0-2.0) 06/14/17 13:12 Neut # (Auto) 4.7 K/uL (1.8-7.0) 06/14/17 13:12 Lymph # (Auto) 1.5 K/uL (1.0-4.3) 06/14/17 13:12 [place] # (Auto) 0.4 K/uL (0.0-0.8) 06/14/17 13:12 Eos # (Auto) 0.2 K/uL (0.0-0.7) 06/14/17 13:12 Baso # (Auto) 0.1 K/uL (0.0-0.2) 06/14/17 13:12 Sodium 137 mmol/L (132-148) 06/14/17 10:08 Potassium 4.2 mmol/L (3.6-5.2) 06/14/17 10:08 Chloride 99 mmol/L (98-107) 06/14/17 10:08 Carbon Dioxide 24 mmol/L (22-30) 06/14/17 10:08 Anion Gap 18 (10-20) 06/14/17 10:08 BUN 30 mg/dL (9-20) H 06/14/17 10:08 Creatinine 1.2 mg/dL (0.8-1.5) 06/14/17 10:08 Est GFR ( Amer) > 60 06/14/17 10:08 Est GFR (Non-Af Amer) > 60 06/14/17 10:08 POC Glucose (mg/dL) 241 mg/dL (65-110) H 06/15/17 06:21 Random Glucose 390 mg/dL (75-110) H 06/14/17 10:08 Calcium 8.5 mg/dl (8.6-10.4) L 06/14/17 10:08 Total Bilirubin 0.4 mg/dL (0.2-1.3) 06/14/17 10:08 AST 18 U/L (17-59) 06/14/17 10:08 ALT 12 U/L (21-72) L D 06/14/17 10:08 Alkaline Phosphatase 148 U/L (38-126) H 06/14/17 10:08 Total Creatine Kinase 104 U/L (55-170) 06/14/17 20:01 CK-MB (Mass) 0.42 ng/mL (0.0-3.38) 06/14/17 20:01 Troponin I < 0.0120 ng/mL (0.00-0.120) 06/14/17 20:01 NT-Pro-B Natriuret Pep 290 pg/mL (0-900) 06/14/17 10:08 Total Protein 6.9 g/dL (6.3-8.3) 06/14/17 10:08 Albumin 3.3 g/dL (3.5-5.0) L 06/14/17 10:08 Globulin 3.6 gm/dL (2.2-3.9) 06/14/17 10:08 Albumin/Globulin Ratio 0.9 (1.0-2.1) L 06/14/17 10:08 - Hospital Course Hospital Course: PT REQUESTING TO BE D/C HOME TODAY. PT DENIES ANY CHEST PAIN, SOB; NO ACUTE DISTRESS. STATES HE HAS AN APPT THIS AFTERNOON WITH HIS MD IN [place] AND WOULD LIKE TO LEAVE TO MAKE IT ON TIME. LABS REVIEWED; VITALS REVIEWED; EXAM UNREMARKABLE AT THIS TIME. OK TO D/C PER DR. AMOR. REFILL RX GIVEN FOR PROMETHAZINE AND NITRO TABS. NO FURTHER ORDERS. Discharge Exam - Head Exam Head Exam: ATRAUMATIC, NORMAL INSPECTION, NORMOCEPHALIC - Eye Exam Eye Exam: EOMI, Normal appearance, PERRL Pupil Exam: NORMAL ACCOMODATION, PERRL - ENT Exam ENT Exam: Mucous Membranes Moist - Respiratory Exam Respiratory Exam: Clear to PA & Lateral, NORMAL BREATHING PATTERN - Cardiovascular Exam Cardiovascular Exam: REGULAR RHYTHM, +S1, +S2 - GI/Abdominal Exam GI & Abdominal Exam: Normal Bowel Sounds - Rectal Exam Rectal Exam: Deferred Discharge Plan - Discharge Medications Prescriptions: Nitroglycerin 0.4 mg SL Q5MIN PRN #14 tab.subl PRN Reason: chest pain Promethazine [Phenergan Syrup] 6.25 mg PO Q6 PRN #8 oz PRN Reason: Cough - Follow Up Plan Condition: FAIR Disposition: HOME/ ROUTINE Instructions: Heart Failure, Adult, Chest Pain, Medical Devices for Congestive Heart Failure (CHF) Additional Instructions: -FOLLOW UP WITH DR. AMOR IN THE OFFICE WITHIN 5 DAYS OF DISCHARGE---CALL FOR APPT TIME. -FOLLOW UP WITH YOUR [facility] IN THE OFFICE WITHIN 7 DAYS OF DISCHARGE--- CALL FOR APPT TIME. -CONTINUE HOME MEDICATIONS USUAL. -FOR FURTHER CONCERNS OR QUESTIONS, CONTACT DR. AMOR. Referrals: Ousmane Amor MD [Staff Provider] -
--- NOTE | 2017-06-16 02:03 | CARD ---
APPROVED REPORT EKG Measurement Heart [id number] <Conclusion> Atrial-sensed ventricular-paced rhythm Abnormal ECG
[2017-06-16 14:02] VITALS: O2SAT 98
== END 2017-06-15 12:12 | disposition home or self-care (01) ==
LOC: C.ER 09:13 → C.9E 14:22 → C.5S 15:09
PROVIDERS: ADMIT Internal Medicine; ATTEND Internal Medicine
DX: R07.9 Chest pain, unspecified (principal); Z95.1 Presence of aortocoronary bypass graft; F41.9 Anxiety disorder, unspecified; I48.91 Unspecified atrial fibrillation; I25.10 Atherosclerotic heart disease of native coronary artery without angina pectoris; I11.0 Hypertensive heart disease with heart failure; I50.9 Heart failure, unspecified; J44.9 Chronic obstructive pulmonary disease, unspecified; E11.9 Type 2 diabetes mellitus without complications; Z86.718 Personal history of other venous thrombosis and embolism; E05.00 Thyrotoxicosis with diffuse goiter without thyrotoxic crisis or storm; E78.00 Pure hypercholesterolemia, unspecified; E03.9 Hypothyroidism, unspecified; G47.30 Sleep apnea, unspecified; Z86.73 Personal history of transient ischemic attack (TIA), and cerebral infarction without residual deficits; Z95.5 Presence of coronary angioplasty implant and graft; M54.9 Dorsalgia, unspecified; F17.210 Nicotine dependence, cigarettes, uncomplicated; I42.9 Cardiomyopathy, unspecified; Z95.810 Presence of automatic (implantable) cardiac defibrillator; G89.4 Chronic pain syndrome; Z68.42 Body mass index [BMI] 45.0-49.9, adult; E66.01 Morbid (severe) obesity due to excess calories
CPT/HCPCS: 71045; 80053; 82948; 83880; 84484; 85025; 99285; G0378

== ENCOUNTER 2017-07-15 21:48 | Observation (INO) | payer MEDICARE, OTHER ==
[2017-07-15 21:48] VITALS: PULSE 64; BMI 46.4
[2017-07-15] MEDS ORDERED: Aspirin 325 mg EC Tablets PO STA (22:09)
--- NOTE | 2017-07-15 22:09 | C.PDOC ---
History Of Present Illness The patient presents to the ED for evaluation of chest pain and shortness of breath which has been intermittent since 1400 today. Patient reports an extensive cardiac history, which includes CABG. He denies fever, chills, nausea , and vomiting. Time Seen by Provider: 07/15/17 22:09 Chief Complaint (Nursing): Chest Pain History Per: Patient History/Exam Limitations: no limitations Onset/Duration Of Symptoms: Hrs, Intermittent Episodes Current Symptoms Are (Timing): Still Present Severity: Moderate Pain Scale Rating Of: 4 Quality: "Pain" Associated Symptoms: denies: Nausea Modifying Factors: None Exacerbating Factors: None Alleviating Factors: None Recent travel outside of the [place]: No Additional History Per: Patient Past Medical History Reviewed: Historical Data, Nursing Documentation, Vital Signs Vital Signs: Last Vital Signs Temp 98.3 F 07/15/17 22:03 Pulse 100 H 07/15/17 22:03 Resp 20 07/15/17 22:03 BP 99/55 L 07/15/17 22:03 Pulse Ox 100 07/15/17 22:55 - Medical History PMH: Anxiety, Atrial Fibrillation, Back Problems, CAD, Cardia Arrhythmia (AFIB) , CHF, COPD, Diabetes, Deep Vein Thrombosis, Emphysema, Graves' Disease, HTN, Hypercholesterolemia, Hypothyroidism, Peripheral Edema, Pneumonia, Sleep Apnea, TIA Denies: Chronic Kidney Disease Surgical History: CABG (2008), Coronary Stent (3 Stents Prior to Quadruple Bypass), Pacemaker - [facility] Procedures ASSISTANCE WITH RESPIRATORY VENTILATION, 24-96 HRS, CPAP (10/15/15) INJECT/INFUSE NEC (10/09/12) Family History: States: Unknown Family Hx - Social History Hx Tobacco Use: Yes Hx Alcohol Use: Yes Hx Substance Use: No - Immunization History Hx Tetanus Toxoid Vaccination: Yes Hx Influenza Vaccination: Yes Hx Pneumococcal Vaccination: Yes Review Of Systems Constitutional: Negative for: Fever, Chills Cardiovascular: Positive for: Chest Pain. Negative for: Palpitations Respiratory: Positive for: Shortness of Breath. Negative for: Cough Gastrointestinal: Negative for: Nausea, Vomiting Musculoskeletal: Negative for: Shoulder Pain, Arm Pain Skin: Negative for: Rash, Lesions, Jaundice, Bruising Neurological: Negative for: Weakness, Numbness Psych: Negative for: Anxiety Physical Exam - Physical Exam Appears: Non-toxic, No Acute Distress Skin: Warm, Dry Head: Normacephalic Eye(s): bilateral: Normal Inspection Oral Mucosa: Moist Neck: Supple Chest: Symmetrical, No Deformity, No Tenderness, Other (pacemaker noted to left chest wall ) Cardiovascular: Rhythm Regular, No Murmur Respiratory: Rales (scattered, at bases), No Rhonchi, No Wheezing Gastrointestinal/Abdominal: Soft, No Tenderness, Other (morbidly obese ) Back: Normal Inspection Extremity: Pedal Edema, Capillary Refill (less than 2 seconds ), Other ( bilateral pedal edema with some small healing vascular stasis ulcers to bilateral lower extremities ) Extremity: Bilateral: Atraumatic Pulses: Left Dorsalis Pedis: Normal, Right Dorsalis Pedis: Normal Neurological/Psych: Oriented x3 Gait: With Assistance ED Course And Treatment - Laboratory Results Result Diagrams: 07/15/17 22:45 07/15/17 22:45 ECG: Interpreted By Me, Viewed By Me ECG Rhythm: Sinus Rhythm (75), Nonspecific Changes (atrial sensed ventricular paced) O2 Sat by Pulse Oximetry: 100 (on RA) Pulse Ox Interpretation: Normal - Radiology CXR: Interpreted by Me, Viewed By Me CXR Interpretation: Yes: Cardiomegaly, Other (cabg, chf). No: Infiltrates, Fracture Progress Note: Bloodwork, urinalysis, CXR, EKG ordered and reviewed. Aspirin PO administered. Disposition Discussed With Dr.: Ousmane Amor Comment: accepted the pt on his service and took over the care at 11:52 PM Doctor Will See Patient In The: Hospital Counseled Patient/Family Regarding: Studies Performed, Diagnosis - Disposition Disposition: HOSPITALIZED Disposition Time: 22:09 Condition: FAIR Forms: [employer] ([place]) - Clinical Impression Clinical Impression: Dyspnea, CHF exacerbation, Hyperglycemia - Scribe Statement The provider has reviewed the documentation as recorded by the Scribe (Leeann Dyer) Provider Attestation: All medical record entries made by the Scribe were at my direction and personally dictated by me. I have reviewed the chart and agree that the record accurately reflects my personal performance of the history, physical exam, medical decision making, and the department course for this patient. I have also personally directed, reviewed, and agree with the discharge instructions and disposition. Decision To Admit - Pt Status Changed To: Hospital Disposition Of: Observation - . Bed Request Type: Telemetry Admitting Physician: Ousmane Amor Patient Diagnosis: Dyspnea, CHF exacerbation, Hyperglycemia
[2017-07-15 22:48] LABS: BASO # 0.1 K/uL (0.0-0.2); EOS # 0.1 K/uL (0.0-0.7); EOS % 1.1 % (0.0-4.0); HEMOGLOBIN 10.7 g/dL (12.0-18.0); LYMPH # 1.1 K/uL (1.0-4.3); LYMPH % 13.6 % (20.0-40.0); MEAN CELL VOLUME 82.9 fL (80.0-94.0); MEAN CORPUSCULAR HEMOGLOBIN 27.1 pg (27.0-31.0); MEAN CORPUSCULAR HGB CONC 32.7 g/dL (33.0-37.0); MEAN PLATELET VOLUME 8.7 fL (7.2-11.7); MONO # 0.4 K/uL (0.0-0.8); MONO % 4.2 % (0.0-10.0); NEUT # 6.7 K/uL (1.8-7.0); NEUT % 80.1 % (50.0-75.0); NRBC % 0.2 % (0.0-2.0); RBC 3.94 Mil/uL (4.40-5.90); RED CELL DISTRIBUTION WIDTH 15.6 % (11.5-14.5); WHITE BLOOD COUNT 8.4 K/uL (4.8-10.8)
[2017-07-15 22:56] LABS: INR 1.2; PROTHROMBIN TIME 12.8 SECONDS (9.7-12.2)
[2017-07-15 23:12] LABS: GFR AFRICAN-AMERICAN > 60; GFR NON-AFRICAN AMERICAN 58; LIPASE 268 U/L (23-300)
[2017-07-15 23:13] LABS: ALB/GLOB RATIO 0.9 (1.0-2.1); ALBUMIN 3.6 g/dL (3.5-5.0); ALT/SGPT 39 U/L (21-72); AST/SGOT 45 U/L (17-59); BLOOD UREA NITROGEN 59 mg/dL (9-20)
[2017-07-15] MEDS ORDERED: Promethazine 6.25 MG/5 ML CUP PO PRN (23:58)
[2017-07-16 01:42] VITALS: RESP 20
[2017-07-16] MEDS: oxyCODONE 30 mg Immediate Release Tab PO PRN ×3 (02:05→14:04)
[2017-07-16] MEDS ORDERED: Levothyroxine 100 MCG TAB PO SCH (06:30)
--- NOTE | 2017-07-16 08:14 | RAD ---
Chest x-ray single frontal view History: Chest pain. Comparison: 06/14/2017 Findings: Moderate venous congestion. Patchy consolidative changes in the right infrahilar region and left lung base. Enlarged ectatic aorta. Cardiomegaly. Status post median sternotomy and CABG. Degenerative changes in the spine and shoulders. Impression: Moderate venous congestion. Patchy consolidative changes in the right infrahilar region and left lung base. Enlarged ectatic aorta. Cardiomegaly. Status post median sternotomy and CABG.
--- NOTE | 2017-07-16 08:30 | CP.PCM.HP ---
History of Present Illness - History of Present Illness History of Present Illness: CC: chest pain ans sob History Of Present Illness The patient who is 52 year old morbidly obese male with PMH significant for DM, HTN, CHF, s/p CABG wel known to me with multipple previous hospitalaiations presents to the ED for evaluation of chest pain and shortness of breath which has been intermittent since 1400 today. Patient reports an extensive cardiac history, which includes CABG. He denies fever, chills, nausea, and vomiting. Present on Admission - Present on Admission Any Indicators Present on Admission: Yes Review of Systems - Review of Systems Systems not reviewed;Unavailable: Acuity of Condition - Constitutional Constitutional: Fatigue, Lethargy, Malaise, Snoring - EENT Eyes: absent: As Per HPI, Blind Spots, Blurred Vision, Change in Vision, Decreased Night Vision, Diplopia, Discharge, Dry Eye, Exophthalmos, Floaters, Irritation, Itchy Eyes, Loss of Peripheral Vision, Pain, Photophobia, Requires Corrective Lenses, Sees Flashes, Spots in Vision, Tunnel Vision, Other Visual Disturbances, Loss of Vision, Other Nose/Mouth/Throat: absent: As Per HPI, Epistaxis, Nasal Congestion, Nasal Discharge, Nasal Obstruction, Nasal Trauma, Nose Pain, Post Nasal Drip, Sinus Pain, Sinus Pressure, Bleeding Gums, Change in Voice, Dental Pain, Dry Mouth, Dysphagia, Halitosis, Hoarsness, Lip Swelling, Mouth Lesions, Mouth Pain, Odynophagia, Sore Throat, Throat Swelling, Tongue Swelling, Facial Pain, Neck Pain, Neck Mass, Other - Cardiovascular Cardiovascular: Chest Pain, Dyspnea, Palpitations, Paroxysmal Nocturnal Dyspnea , Pedal Edema - Respiratory Respiratory: Cough, Dyspnea, Wheezing, Chest Congestion - Gastrointestinal Gastrointestinal: absent: As Per HPI, Abdominal Pain, Belching, Bloating, Change in Bowel Habits, Change in Stool Character, Coffee Ground Emesis, Constipation, Cramping, Diarrhea, Dyspepsia, Dysphagia, Early Satiety, Excessive Flatus, Fecal Incontinence, Heartburn, Hematemesis, Hematochezia, Loose Stools, Melena, Nausea, Odynophagia, Temesmus, Vomiting, Other - Genitourinary Genitourinary: absent: As Per HPI, Change in Urinary Stream, Difficulty Urinating, Dysuria, Flank Pain, Hematuria, Pyuria, Nocturia, Urinary Incontinence, Urinary Frequency, Urinary Hesitance, Urinary Urgency, Voiding Freq/Small Amts, Freq UTI, Hx Renal/Bladder Calculi, Hx /Renal Surgery, Bladder Distension, Other - Musculoskeletal Musculoskeletal: Back Pain, Muscle Weakness, Numbness, Tingling - Integumentary Integumentary: absent: As Per HPI, Acne, Alopecia, Bleeding Lesions, Change in Hair, Change in Nails, Change in Pigmentation, Changing Lesions, Dry Skin, Erythema, Furuncle, Hirsutism, Lesions, New Lesions, Non-Healing Lesions, Photosensitivity, Pruritus, Rash, Skin Pain, Skin Ulcer, Sores, Striae, Swelling , Unusual Bruising, Wounds, Jaundice, Other Past Patient History - Infectious Disease Hx of Infectious Diseases: None - Past Medical History & Family History Past Medical History?: Yes - Past Social History Smoking Status: Heavy Smoker > 10 Cigarettes Daily - CARDIAC Hx Atrial Fibrillation: Yes Hx Cardia Arrhythmia: Yes (AFIB) Hx Congestive Heart Failure: Yes Hx Hypercholesterolemia: Yes Hx Hypertension: Yes Hx Pacemaker: Yes Hx Peripheral Edema: Yes - PULMONARY Hx Chronic Obstructive Pulmonary Disease (COPD): Yes Hx Emphysema: Yes Hx Pneumonia: Yes Hx Sleep Apnea: Yes - NEUROLOGICAL Hx Transient Ischemic Attacks (TIA): Yes - HEENT Hx HEENT Problems: No - RENAL Hx Chronic Kidney Disease: No - ENDOCRINE/METABOLIC Hx Hypothyroidism: Yes - HEMATOLOGICAL/ONCOLOGICAL Hx Blood Disorders: Yes Hx Blood Transfusions: Yes - INTEGUMENTARY Hx Dermatological Problems: No - MUSCULOSKELETAL/RHEUMATOLOGICAL Hx Musculoskeletal Disorders: No Hx Falls: No - GASTROINTESTINAL Hx Gastrointestinal Disorders: No - GENITOURINARY/GYNECOLOGICAL Hx Genitourinary Disorders: No - PSYCHIATRIC Hx Anxiety: Yes Hx Substance Use: No - SURGICAL HISTORY Hx Coronary Artery Bypass Graft: Yes (2008) Hx Coronary Stent: Yes (3 Stents Prior to Quadruple Bypass) - ANESTHESIA Hx Anesthesia: Yes Hx Anesthesia Reactions: No Hx Malignant Hyperthermia: No Meds Home Medications: Home Medication List Medication Instructions Recorded Confirmed Type Promethazine [Phenergan Syrup] 6.25 mg PO Q6 PRN #8 oz 07/16/17 Rx Allergies/Adverse Reactions: Allergies Allergy/AdvReac Type Severity Reaction Status Date / Time No Known Drug Allergies Allergy n/a Verified 07/15/17 22:08 Physical Exam - Constitutional Appears: No Acute Distress - Head Exam Head Exam: ATRAUMATIC, NORMAL INSPECTION, NORMOCEPHALIC - Eye Exam Eye Exam: EOMI, Normal appearance, PERRL Pupil Exam: NORMAL ACCOMODATION, PERRL - Respiratory Exam Respiratory Exam: Decreased Breath Sounds, Prolonged Expiratory Phase, Rales, Rhonchi - Cardiovascular Exam Cardiovascular Exam: REGULAR RHYTHM, +S1, +S2, Systolic Murmur - GI/Abdominal Exam GI & Abdominal Exam: Normal Bowel Sounds, Soft. absent: Tenderness Results - Vital Signs Recent Vital Signs: Last Vital Signs Temp 98.3 F 07/16/17 01:35 Pulse 71 07/16/17 01:54 Resp 20 07/16/17 01:35 BP 143/83 07/16/17 01:35 Pulse Ox 96 07/16/17 01:35 - Labs Result Diagrams: 07/15/17 22:45 07/16/17 11:43 Labs: Laboratory Results - last 24 hr 07/15/17 07/15/17 07/15/17 22:45 22:45 22:45 WBC 8.4 RBC 3.94 L Hgb 10.7 L Hct 32.7 L MCV 82.9 MCH 27.1 MCHC 32.7 L RDW 15.6 H Plt Count 221 MPV 8.7 Neut % (Auto) 80.1 H Lymph % (Auto) 13.6 L [place] % (Auto) 4.2 Eos % (Auto) 1.1 Baso % (Auto) 1.0 Neut # (Auto) 6.7 Lymph # (Auto) 1.1 [place] # (Auto) 0.4 Eos # (Auto) 0.1 Baso # (Auto) 0.1 PT 12.8 H INR 1.2 APTT 31 Sodium 139 Potassium 5.7 H Chloride 103 Carbon Dioxide 22 Anion Gap 19 BUN 59 H Creatinine 1.3 Est GFR ( Amer) > 60 Est GFR (Non-Af Amer) 58 POC Glucose (mg/dL) Random Glucose 380 H Calcium 9.0 Total Bilirubin 0.7 AST 45 ALT 39 Alkaline Phosphatase 209 H D Troponin I 0.0130 NT-Pro-B Natriuret Pep Total Protein 7.8 Albumin 3.6 Globulin 4.1 H Albumin/Globulin Ratio 0.9 L Lipase 268 07/15/17 07/16/17 23:26 06:42 WBC RBC Hgb Hct MCV MCH MCHC RDW Plt Count MPV Neut % (Auto) Lymph % (Auto) [place] % (Auto) Eos % (Auto) Baso % (Auto) Neut # (Auto) Lymph # (Auto) [place] # (Auto) Eos # (Auto) Baso # (Auto) PT INR APTT Sodium Potassium Chloride Carbon Dioxide Anion Gap BUN Creatinine Est GFR ( Amer) Est GFR (Non-Af Amer) POC Glucose (mg/dL) 255 H Random Glucose Calcium Total Bilirubin AST ALT Alkaline Phosphatase Troponin I NT-Pro-B Natriuret Pep 1330 H Total Protein Albumin Globulin Albumin/Globulin Ratio Lipase Assessment & Plan (1) CHF exacerbation Status: Acute (2) Hypertensive heart disease Status: Active (3) Morbid obesity with BMI of 45.0-49.9, adult Status: Chronic (4) [place] and COPD overlap syndrome Status: Chronic (5) Sleep apnea Status: Chronic (6) Type 2 diabetes mellitus Status: Chronic (7) Chest pain Status: Resolved
[2017-07-16 08:38] VITALS: PULSE 79; TEMP 97.5; O2SAT 100
[2017-07-16 10:15] VITALS: BP 131/90
[2017-07-16 12:18] LABS: BLOOD UREA NITROGEN 48 mg/dL (9-20); GFR AFRICAN-AMERICAN > 60; GFR NON-AFRICAN AMERICAN > 60
[2017-07-16 12:20] LABS: CK-MB 1.09 ng/mL (0.0-3.38)
--- NOTE | 2017-07-16 17:58 | CP.PCM.PN ---
Subjective - Date & Time of Evaluation Date of Evaluation: 07/16/17 Time of Evaluation: 17:59 - Subjective Subjective: Alert, awake, denies sob or chest pains. Objective - Vital Signs/Intake and Output Vital Signs (last 24 hours): Temp Pulse Resp BP Pulse Ox 97.5 F L 79 20 131/90 100 07/16/17 08:37 07/16/17 08:37 07/16/17 08:37 07/16/17 10:14 07/16/17 08:37 - Labs Labs: 07/15/17 22:45 07/16/17 11:43 PT 12.8 SECONDS (9.7-12.2) H 07/15/17 22:45 INR 1.2 07/15/17 22:45 APTT 31 SECONDS (21-34) 07/15/17 22:45 Assessment and Plan - Assessment and Plan (Free Text) Assessment: Patient admitted with chest pains, CHF, seen and examined. Alert, orientedx3, ambulating around. Denies sob or chest pains. DILIP negativex2, patient requesting to go home. Discussed with DR Amor , plan to discharge home and follow up with PMD in 1 week.
[2017-07-16] MEDS ORDERED: Digoxin 125 mcg (0.125 mg) Tab PO SCH (18:00)
--- NOTE | 2017-07-16 18:02 | PCM.HF ---
Heart Failure Core Measure - Heart Failure Ejection Fraction: 40 % or Greater (EF 51%) JEANNE Inhibitor Prescribed: Yes Beta-Rian Prescribed: Carvedilol Angiotensin II Receptor Rian Prescribed: No Contraindication/Reason for not providing: ON JEANNE AnticoagulationTherapy for Atrial Fibrillation/Atrialflutter: Yes Aldosterone Antagonist Prescribed: No Contraindication/Reason for not providing: EF >40% Hydralazine Nitrate Prescribed: No Contraindication/Reason for not providing: BP >40% Implantable Cardioverter Defibrillator Therapy: Yes Cardiac Resynchronization Therapy Prescribed: No Contraindication/Reason for not providing: NOT INDICATED - Follow up Will be discharged to: Home Follow Up Date (must be within 7 days from discharge): 07/20/17 Follow Up Time: 09:00
--- NOTE | 2017-07-16 22:44 | CARD ---
APPROVED REPORT EKG Measurement Heart [id number] [id number] <Conclusion> Atrial-sensed ventricular-paced rhythm Abnormal ECG
--- NOTE | 2017-07-17 05:04 | CP.PCM.DIS ---
Provider - Provider Date of Admission: 07/15/17 23:50 Attending physician: Ousmane Amor MD Time Spent in preparation of Discharge (in minutes): 45 Hospital Course - Lab Results Lab Results: Most Recent Lab Values WBC 8.4 K/uL (4.8-10.8) 07/15/17 22:45 RBC 3.94 Mil/uL (4.40-5.90) L 07/15/17 22:45 Hgb 10.7 g/dL (12.0-18.0) L 07/15/17 22:45 Hct 32.7 % (35.0-51.0) L 07/15/17 22:45 MCV 82.9 fL (80.0-94.0) 07/15/17 22:45 MCH 27.1 pg (27.0-31.0) 07/15/17 22:45 MCHC 32.7 g/dL (33.0-37.0) L 07/15/17 22:45 RDW 15.6 % (11.5-14.5) H 07/15/17 22:45 Plt Count 221 K/uL (130-400) 07/15/17 22:45 MPV 8.7 fL (7.2-11.7) 07/15/17 22:45 Neut % (Auto) 80.1 % (50.0-75.0) H 07/15/17 22:45 Lymph % (Auto) 13.6 % (20.0-40.0) L 07/15/17 22:45 [place] % (Auto) 4.2 % (0.0-10.0) 07/15/17 22:45 Eos % (Auto) 1.1 % (0.0-4.0) 07/15/17 22:45 Baso % (Auto) 1.0 % (0.0-2.0) 07/15/17 22:45 Neut # (Auto) 6.7 K/uL (1.8-7.0) 07/15/17 22:45 Lymph # (Auto) 1.1 K/uL (1.0-4.3) 07/15/17 22:45 [place] # (Auto) 0.4 K/uL (0.0-0.8) 07/15/17 22:45 Eos # (Auto) 0.1 K/uL (0.0-0.7) 07/15/17 22:45 Baso # (Auto) 0.1 K/uL (0.0-0.2) 07/15/17 22:45 PT 12.8 SECONDS (9.7-12.2) H 07/15/17 22:45 INR 1.2 07/15/17 22:45 APTT 31 SECONDS (21-34) 07/15/17 22:45 Sodium 144 mmol/L (132-148) 07/16/17 11:43 Potassium 4.2 mmol/L (3.6-5.2) 07/16/17 11:43 Chloride 103 mmol/L (98-107) 07/16/17 11:43 Carbon Dioxide 27 mmol/L (22-30) 07/16/17 11:43 Anion Gap 18 (10-20) 07/16/17 11:43 BUN 48 mg/dL (9-20) H 07/16/17 11:43 Creatinine 1.2 mg/dL (0.8-1.5) 07/16/17 11:43 Est GFR ( Amer) > 60 07/16/17 11:43 Est GFR (Non-Af Amer) > 60 07/16/17 11:43 POC Glucose (mg/dL) 251 mg/dL (65-110) H 07/16/17 11:50 Random Glucose 245 mg/dL (75-110) H 07/16/17 11:43 Calcium 9.0 mg/dl (8.6-10.4) 07/16/17 11:43 Total Bilirubin 0.7 mg/dL (0.2-1.3) 07/15/17 22:45 AST 45 U/L (17-59) 07/15/17 22:45 ALT 39 U/L (21-72) 07/15/17 22:45 Alkaline Phosphatase 209 U/L (38-126) H D 07/15/17 22:45 Total Creatine Kinase 78 U/L (55-170) 07/16/17 11:43 CK-MB (Mass) 1.09 ng/mL (0.0-3.38) 07/16/17 11:43 Troponin I 0.0150 ng/mL (0.00-0.120) 07/16/17 11:43 NT-Pro-B Natriuret Pep 1330 pg/mL (0-900) H 07/15/17 23:26 Total Protein 7.8 g/dL (6.3-8.3) 07/15/17 22:45 Albumin 3.6 g/dL (3.5-5.0) 07/15/17 22:45 Globulin 4.1 gm/dL (2.2-3.9) H 07/15/17 22:45 Albumin/Globulin Ratio 0.9 (1.0-2.1) L 07/15/17 22:45 Lipase 268 U/L (23-300) 07/15/17 22:45 - Hospital Course Hospital Course: Patient admitted with chest pains, CHF, seen and examined. Alert, orientedx3, ambulating around. Denies sob or chest pains. DILIP negativex2, patient requesting to go home., plan to discharge home and follow up with PMD in 1 week. Discharge Exam - Head Exam Head Exam: ATRAUMATIC, NORMAL INSPECTION, NORMOCEPHALIC - Eye Exam Eye Exam: Normal appearance - ENT Exam ENT Exam: Normal Oropharynx - Respiratory Exam Respiratory Exam: Decreased Breath Sounds, Rales - Cardiovascular Exam Cardiovascular Exam: REGULAR RHYTHM, +S1, +S2 - GI/Abdominal Exam GI & Abdominal Exam: Normal Bowel Sounds Discharge Plan - Discharge Medications Prescriptions: Promethazine [Phenergan Syrup] 6.25 mg PO Q6 PRN #8 oz PRN Reason: Cough - Follow Up Plan Condition: FAIR Disposition: HOME/ ROUTINE Instructions: Heart Failure, Adult, Heart Healthy Diet, Chest Pain, Diabetes Diet , Quitting Smoking, Promethazine Additional Instructions: Follow up with Primary Medical Doctor in 1 week. Referrals: Ousmane Amor MD [Staff Provider] -
[2017-07-17] MEDS ORDERED: Levothyroxine 100 MCG TAB PO SCH ×2 (06:30)
--- NOTE | 2017-07-17 12:56 | CARD ---
APPROVED REPORT EKG Measurement Heart [id number] [id number] <Conclusion> Atrial-sensed ventricular-paced rhythm Abnormal ECG
== END 2017-07-16 16:50 | disposition home or self-care (01) ==
LOC: C.ER 21:48 → INTOOBSV 23:50 → C.6T 23:50
PROVIDERS: ADMIT Internal Medicine; ATTEND Internal Medicine
DX: I11.0 Hypertensive heart disease with heart failure (principal); I50.9 Heart failure, unspecified; E11.9 Type 2 diabetes mellitus without complications; E66.01 Morbid (severe) obesity due to excess calories; Z68.42 Body mass index [BMI] 45.0-49.9, adult; Z86.73 Personal history of transient ischemic attack (TIA), and cerebral infarction without residual deficits; Z87.01 Personal history of pneumonia (recurrent); F17.210 Nicotine dependence, cigarettes, uncomplicated; Z95.0 Presence of cardiac pacemaker; Z95.1 Presence of aortocoronary bypass graft; Z95.5 Presence of coronary angioplasty implant and graft; E78.00 Pure hypercholesterolemia, unspecified; G47.33 Obstructive sleep apnea (adult) (pediatric); J43.9 Emphysema, unspecified; M35.1 Other overlap syndromes
CPT/HCPCS: 36415; 71045; 80048; 80053; 82948; 83690; 83880; 84484; 85025; 85610; 85730; 93005; 96374; G0378; J1940

== ENCOUNTER 2017-07-19 22:59 | Inpatient (IN) | payer MEDICARE, OTHER ==
[2017-07-19 22:59] VITALS: PULSE 64; BMI 46.4
[2017-07-19] MEDS ORDERED: cefTRIAXone IV 1 gm in Dextros 50 ML IVPB ONE (23:22)
--- NOTE | 2017-07-19 23:23 | C.PDOC ---
History Of Present Illness 52 year old male presents to the ED for evaluation of shortness of breath and slight chest pain which began a few days ago. Patient also complains of an infected wound to his right lower leg region. Patient states he was seen at [facility] earlier today, but walked out. He denies fever, chills. Chief Complaint (Nursing): Shortness Of Breath History Per: Patient History/Exam Limitations: no limitations Onset/Duration Of Symptoms: Days Current Symptoms Are (Timing): Still Present Quality: "Pain" Current Respiratory Medications: See Home Med List Associated Symptoms: Chest Pain. denies: Fever, Chills Additional History Per: Patient Past Medical History Reviewed: Historical Data, Nursing Documentation, Vital Signs Vital Signs: Last Vital Signs Temp 98.7 F 07/19/17 23:16 Pulse 84 07/19/17 23:16 Resp 22 07/20/17 00:18 BP 117/58 L 07/19/17 23:16 Pulse Ox 98 07/20/17 02:24 - Medical History PMH: Anxiety, Atrial Fibrillation, Back Problems, CAD, Cardia Arrhythmia (AFIB) , CHF, COPD, Diabetes, Deep Vein Thrombosis, Emphysema, Graves' Disease, HTN, Hypercholesterolemia, Hypothyroidism, Peripheral Edema, Pneumonia, Sleep Apnea, TIA Denies: Chronic Kidney Disease Surgical History: CABG (2008), Coronary Stent (3 Stents Prior to Quadruple Bypass), Pacemaker - [facility] Procedures ASSISTANCE WITH RESPIRATORY VENTILATION, 24-96 HRS, CPAP (10/15/15) INJECT/INFUSE NEC (10/09/12) Family History: States: Unknown Family Hx - Social History Hx Tobacco Use: Yes Hx Alcohol Use: Yes Hx Substance Use: No - Immunization History Hx Tetanus Toxoid Vaccination: Yes Hx Influenza Vaccination: Yes Hx Pneumococcal Vaccination: Yes Review Of Systems Constitutional: Negative for: Fever, Chills Cardiovascular: Positive for: Chest Pain Respiratory: Positive for: Shortness of Breath Skin: Positive for: Other (infected wound to right lower leg ) Physical Exam - Physical Exam Appears: Non-toxic, No Acute Distress, Other (markedly obese ) Skin: Normal Color, Warm, Dry, Other (infected wound to dorsal aspect of right lower leg ) Head: Atraumatic, Normacephalic Eye(s): bilateral: Normal Inspection Oral Mucosa: Moist Neck: Supple Chest: Symmetrical, No Deformity, No Tenderness Cardiovascular: Rhythm Regular, No Murmur Respiratory: Normal Breath Sounds, No Rales, No Rhonchi, No Wheezing Extremity: Normal ROM, Capillary Refill (less than 2 seconds ), Swelling (to bilateral lower extremities, right>left ) Neurological/Psych: Oriented x3, Normal Speech, Normal Cognition ED Course And Treatment - Laboratory Results Result Diagrams: 07/20/17 00:10 07/20/17 00:10 ECG: Interpreted By Me, Viewed By Me ECG Rhythm: AV Paced ECG Interpretation: Abnormal Interpretation Of ECG: AV paced rhythm, abnormal tracings Rate From EC O2 Sat by Pulse Oximetry: 98 (on RA) Pulse Ox Interpretation: Normal Interpretation Of Abnormal: elevated D-dimer, Patient refused to have CT angio of chest to be done. Progress Note: Bloodwork, urinalysis, CXR, EKG ordered and reviewed. Rocephin IVP administered. Disposition Discussed With : Ousmane Amor Doctor Will See Patient In The: Hospital Counseled Patient/Family Regarding: Diagnosis - Disposition Disposition: HOSPITALIZED Disposition Time: 02:22 Condition: STABLE - POA Present On Arrival: None - Clinical Impression Clinical Impression: ESRD on dialysis, Renal insufficiency, Cellulitis of right lower leg - Scribe Statement The provider has reviewed the documentation as recorded by the Scribe (Leeann Dyer) Provider Attestation: All medical record entries made by the Scribe were at my direction and personally dictated by me. I have reviewed the chart and agree that the record accurately reflects my personal performance of the history, physical exam, medical decision making, and the department course for this patient. I have also personally directed, reviewed, and agree with the discharge instructions and disposition.
[2017-07-19] MEDS ORDERED: Bacitracin 500 Units/gm Oint Foilpak UD ONE (23:48)
[2017-07-19 23:55] LABS: SQUAMOUS EPITHIAL < 1 /hpf (0-5); URINE BILIRUBIN NEGATIVE (NEGATIVE); URINE BLOOD NEGATIVE (NEGATIVE); URINE CLARITY Clear (Clear); URINE COLOR Straw (YELLOW); URINE GLUCOSE (UA) 3+ mg/dL (Normal); URINE LEUKOCYTE ESTERASE NEG Leu/uL (Negative); URINE PROTEIN NEGATIVE (NEGATIVE); URINE UROBILINOGEN NORMAL mg/dL (0.2-1.0)
[2017-07-20] MEDS ORDERED: cefTRIAXone IV 1 gm in Dextros 50 ML IVPB ONE (00:08)
[2017-07-20 00:23] LABS: BASO # 0.1 K/uL (0.0-0.2); BASO % 0.9 % (0.0-2.0); EOS # 0.1 K/uL (0.0-0.7); EOS % 0.6 % (0.0-4.0); HEMOGLOBIN 10.7 g/dL (12.0-18.0); LYMPH # 0.8 K/uL (1.0-4.3); LYMPH % 8.2 % (20.0-40.0); MEAN CELL VOLUME 82.8 fL (80.0-94.0); MEAN CORPUSCULAR HEMOGLOBIN 26.6 pg (27.0-31.0); MEAN CORPUSCULAR HGB CONC 32.2 g/dL (33.0-37.0); MONO # 0.3 K/uL (0.0-0.8); MONO % 3.7 % (0.0-10.0); NEUT # 7.9 K/uL (1.8-7.0); NEUT % 86.6 % (50.0-75.0); NRBC % 0.1 % (0.0-2.0); PLATELET COUNT 223 K/uL (130-400); RBC 4.03 Mil/uL (4.40-5.90); RED CELL DISTRIBUTION WIDTH 15.4 % (11.5-14.5); WHITE BLOOD COUNT 9.1 K/uL (4.8-10.8)
[2017-07-20 00:30] LABS: ALB/GLOB RATIO 0.9 (1.0-2.1); ALBUMIN 3.5 g/dL (3.5-5.0); ALT/SGPT 19 U/L (21-72); AST/SGOT 18 U/L (17-59); BLOOD UREA NITROGEN 31 mg/dL (9-20); CALCIUM 8.9 mg/dl (8.6-10.4); GFR AFRICAN-AMERICAN > 60; GFR NON-AFRICAN AMERICAN > 60
[2017-07-20 00:33] LABS: INR 1.4; PROTHROMBIN TIME 15.1 SECONDS (9.7-12.2)
[2017-07-20 00:41] LABS: B-TYPE NATRIURETIC PEPTIDE 779 pg/mL (0-900)
[2017-07-20 01:21] LABS: EOSINOPHIL 2 % (0-4); LYMPHOCYTE 8 % (20-40); MONOCYTE 5 % (0-10); NEUTROPHIL 85 % (50-75); PLATELET ESTIMATE NORMAL (NORMAL); TOTAL CELLS COUNTED 100
[2017-07-20] MEDS ORDERED: Sodium Chloride 0.9% 1,000 ML IV ONE ×2 (01:47)
[2017-07-20] MEDS ORDERED: Promethazine 6.25 MG/5 ML CUP PO PRN (02:22)
[2017-07-20] MEDS ORDERED: Iodixanol 320 MG/ML 100 ML BOTTLE IV ONE (04:33)
[2017-07-20] MEDS: oxyCODONE 30 mg Immediate Release Tab PO PRN ×5 (05:16→22:28)
[2017-07-20] MEDS ORDERED: oxyCODONE 30 mg Immediate Release Tab ONE (05:17)
[2017-07-20 05:54] LABS: BARBITURATES, UR NEGATIVE (NEGATIVE); BENZODIAZEPINES, UR NEGATIVE (NEGATIVE); PHENCYCLIDINE, UR NEGATIVE (NEGATIVE)
[2017-07-20 06:02] LABS: OPIATES, UR POSITIVE (NEGATIVE)
[2017-07-20 07:46] VITALS: RESP 20
[2017-07-20 08:01] LABS: CK-MB 0.53 ng/mL (0.0-3.38)
--- NOTE | 2017-07-20 08:31 | RAD ---
HISTORY: SOB COMPARISON: Chest radiograph dated 07/15/2017. TECHNIQUE: Chest PA and lateral FINDINGS: LUNGS: No active pulmonary disease. PLEURA: No significant pleural effusion identified. No pneumothorax apparent. CARDIOVASCULAR: Left subclavian access AICD/ pacemaker redemonstrated. Prior sternotomy with sternal wires and surgical clips redemonstrated. Atherosclerotic aortic calcifications. Cardiomediastinal silhouette stably prominent. OSSEOUS STRUCTURES: Unchanged. VISUALIZED UPPER ABDOMEN: Normal. OTHER FINDINGS: None. IMPRESSION: No active disease.
[2017-07-20] MEDS ORDERED: Levothyroxine 100 MCG TAB PO SCH (10:00)
[2017-07-20] MEDS ORDERED: cefTRIAXone IV 1 gm in Dextros 1 GM in Dextrose 5% In Water 50 ML IVPB SCH (10:00)
[2017-07-20] MEDS ORDERED: cefTRIAXone IV 1 gm in Dextros 50 ML IVPB SCH (12:00)
[2017-07-20] MEDS: (Novolog) Insulin Aspart, Recombinant 100 u/ml 10 ml vial SC SCH ×3 (12:25→22:06)
[2017-07-20] MEDS ORDERED: Digoxin 125 mcg (0.125 mg) Tab PO SCH (18:00)
[2017-07-21] MEDS: oxyCODONE 30 mg Immediate Release Tab PO PRN ×6 (02:36→23:27)
[2017-07-21] MEDS: Levothyroxine 100 MCG TAB PO SCH (06:53)
[2017-07-21] MEDS: (Novolog) Insulin Aspart, Recombinant 100 u/ml 10 ml vial SC SCH ×4 (08:33→21:39)
--- NOTE | 2017-07-21 08:55 | CP.PCM.HP ---
History of Present Illness - History of Present Illness History of Present Illness: Chief Complaint : Shortness Of Breath History Of Present Illness 52 year old male presents to the ED for evaluation of shortness of breath and slight chest pain which began a few days ago. Patient also complains of an infected wound to his right lower leg region. Patient states he was seen at [facility] earlier today, but walked out. He denies fever, chills. Present on Admission - Present on Admission Any Indicators Present on Admission: No Past Patient History - Infectious Disease Hx of Infectious Diseases: None - Past Medical History & Family History Past Medical History?: Yes - Past Social History Smoking Status: Never Smoked - CARDIAC Hx Cardiac Disorders: Yes Hx Atrial Fibrillation: Yes Hx Cardia Arrhythmia: Yes (AFIB) Hx Congestive Heart Failure: Yes Hx Hypercholesterolemia: Yes Hx Hypertension: Yes Hx Pacemaker: Yes Hx Peripheral Edema: Yes - PULMONARY Hx Chronic Obstructive Pulmonary Disease (COPD): Yes Hx Emphysema: Yes Hx Pneumonia: Yes Hx Sleep Apnea: Yes - NEUROLOGICAL Hx Transient Ischemic Attacks (TIA): Yes - HEENT Hx HEENT Problems: No - RENAL Hx Chronic Kidney Disease: No - ENDOCRINE/METABOLIC Hx Hypothyroidism: Yes - HEMATOLOGICAL/ONCOLOGICAL Hx Blood Disorders: Yes Hx Blood Transfusions: Yes - INTEGUMENTARY Hx Dermatological Problems: No - MUSCULOSKELETAL/RHEUMATOLOGICAL Hx Falls: No - GASTROINTESTINAL Hx Gastrointestinal Disorders: No - GENITOURINARY/GYNECOLOGICAL Hx Genitourinary Disorders: No - PSYCHIATRIC Hx Substance Use: No - SURGICAL HISTORY Hx Coronary Artery Bypass Graft: Yes (2008) Hx Coronary Stent: Yes (3 Stents Prior to Quadruple Bypass) - ANESTHESIA Hx Anesthesia: Yes Hx Anesthesia Reactions: No Hx Malignant Hyperthermia: No Has any member of the family had a problem w/ anesthesia?: No Meds Allergies/Adverse Reactions: Allergies Allergy/AdvReac Type Severity Reaction Status Date / Time No Known Drug Allergies Allergy n/a Verified 07/15/17 22:08 Results - Vital Signs Recent Vital Signs: Last Vital Signs Temp 98.1 F 07/21/17 07:25 Pulse 71 07/21/17 07:25 Resp 20 07/21/17 07:25 BP 160/93 H 07/21/17 07:25 Pulse Ox 100 07/21/17 07:25 - Labs Result Diagrams: 07/20/17 00:10 07/20/17 00:10 Labs: Laboratory Results - last 24 hr 07/20/17 07/20/17 07/20/17 11:07 17:34 21:36 POC Glucose (mg/dL) 328 H 288 H 277 H 07/21/17 06:03 POC Glucose (mg/dL) 233 H
[2017-07-21 11:44] LABS: BASO % 0.6 % (0.0-2.0); EOS # 0.1 K/uL (0.0-0.7); EOS % 1.5 % (0.0-4.0); LYMPH # 1.4 K/uL (1.0-4.3); LYMPH % 19.6 % (20.0-40.0); MEAN CELL VOLUME 82.9 fL (80.0-94.0); MEAN CORPUSCULAR HEMOGLOBIN 26.5 pg (27.0-31.0); MONO # 0.5 K/uL (0.0-0.8); NEUT # 4.9 K/uL (1.8-7.0); NEUT % 71.3 % (50.0-75.0); RBC 4.13 Mil/uL (4.40-5.90); RED CELL DISTRIBUTION WIDTH 15.2 % (11.5-14.5); WHITE BLOOD COUNT 6.9 K/uL (4.8-10.8)
[2017-07-21 12:05] LABS: ALB/GLOB RATIO 0.9 (1.0-2.1); ALBUMIN 3.4 g/dL (3.5-5.0); ALT/SGPT 11 U/L (21-72); AST/SGOT 14 U/L (17-59); BLOOD UREA NITROGEN 19 mg/dL (9-20); CALCIUM 8.5 mg/dl (8.6-10.4); GFR AFRICAN-AMERICAN > 60; GFR NON-AFRICAN AMERICAN > 60
[2017-07-21] MEDS: Clindamycin 600mg/50ml NS 600 MG/50 ML BAG IVPB SCH ×2 (14:42→19:55)
[2017-07-21] MEDS: Ammonium Lactate 12% Lotion (225 g) EXT SCH (17:27)
--- NOTE | 2017-07-22 00:42 | CP.PCM.PN ---
Subjective - Date & Time of Evaluation Date of Evaluation: 07/21/17 Time of Evaluation: 21:00 - Subjective Subjective: pt is still not feeling well, c/o dyspnea on exertiion, orthopnea, pt has wound on right leg with discharge Objective - Vital Signs/Intake and Output Vital Signs (last 24 hours): Temp Pulse Resp BP Pulse Ox 98.4 F 68 20 127/83 99 07/22/17 00:00 07/22/17 00:00 07/22/17 00:00 07/22/17 00:00 07/22/17 00:00 Intake and Output: 07/21/17 07/22/17 18:59 06:59 Intake Total 970 850 Output Total 300 Balance 670 850 - Medications Medications: Current Medications Apixaban (Eliquis) 5 mg PO Q12 [facility] Last Admin: 07/21/17 21:33 Dose: 5 mg Carvedilol (Coreg) 25 mg PO BID [facility] Last Admin: 07/21/17 19:00 Dose: 25 mg Clopidogrel Bisulfate (Plavix) 75 mg PO DAILY [facility] Last Admin: 07/21/17 10:39 Dose: 75 mg Furosemide (Lasix) 40 mg IVP DAILY [facility] Last Admin: 07/21/17 12:17 Dose: 40 mg Hydroxychloroquine Sulfate (Plaquenil) 200 mg PO BID [facility] PRN Reason: Protocol Last Admin: 07/21/17 17:25 Dose: 200 mg Clindamycin Phosphate (Cleocin In Normal Saline) 600 mg in 50 mls @ 100 mls/hr IVPB Q6H [facility] PRN Reason: Protocol Last Admin: 07/21/17 19:55 Dose: 100 mls/hr Insulin Aspart (Novolog) 0 unit SC ACHS [facility] PRN Reason: Protocol Last Admin: 07/21/17 21:39 Dose: Not Given Lactic Acid (Lac-Hydrin 12% Lotion (225 G)) 0 gm EXT BID [facility] Last Admin: 07/21/17 17:27 Dose: 1 applic Levothyroxine Sodium (Synthroid) 100 mcg PO 0630 [facility] Last Admin: 07/21/17 06:53 Dose: 100 mcg Lisinopril (Zestril) 5 mg PO DAILY [facility] Last Admin: 07/21/17 10:40 Dose: 5 mg [facility] ([facility]) [facility] Last Admin: 07/21/17 17:25 Dose: Not Given Mupirocin (Bactroban Ointment) 0 gm TOP BID [facility] Last Admin: 07/21/17 17:26 Dose: 1 applic Nitroglycerin (Nitrostat Sl Tab) 0.4 mg SL Q5MIN PRN PRN Reason: chest pain Oxycodone HCl (Oxycodone Immediate Release Tab) 30 mg PO Q4H PRN PRN Reason: Pain, Mild (1-3) Last Admin: 07/21/17 23:27 Dose: 30 mg Promethazine HCl (Phenergan Syrup) 6.25 mg PO Q6 PRN PRN Reason: Cough Rosuvastatin Calcium (Crestor) 40 mg PO HS [facility] Last Admin: 07/21/17 21:33 Dose: 40 mg Sitagliptin Phosphate (Januvia) 50 mg PO DAILY [facility] Last Admin: 07/21/17 10:39 Dose: 50 mg - Labs Labs: 07/21/17 11:34 07/21/17 11:34 PT 15.1 SECONDS (9.7-12.2) H 07/20/17 00:10 INR 1.4 07/20/17 00:10 APTT 33 SECONDS (21-34) 07/20/17 00:10 - Constitutional Appears: No Acute Distress - Head Exam Head Exam: ATRAUMATIC, NORMAL INSPECTION, NORMOCEPHALIC - Eye Exam Eye Exam: EOMI, Normal appearance, PERRL Pupil Exam: NORMAL ACCOMODATION, PERRL - Respiratory Exam Respiratory Exam: Clear to Ausculation Bilateral, NORMAL BREATHING PATTERN - Cardiovascular Exam Cardiovascular Exam: REGULAR RHYTHM, +S1, +S2. absent: Murmur - GI/Abdominal Exam GI & Abdominal Exam: Soft, Normal Bowel Sounds. absent: Tenderness Assessment and Plan (1) Cellulitis of right lower leg Status: Acute (2) Cardiomyopathy Status: Active (3) Hypertensive heart disease Status: Active (4) Allergic rhinitis Status: Acute (5) CHF exacerbation Status: Acute
[2017-07-22] MEDS: Clindamycin 600mg/50ml NS 600 MG/50 ML BAG IVPB SCH ×2 (03:08→08:09)
[2017-07-22] MEDS: oxyCODONE 30 mg Immediate Release Tab PO PRN ×5 (03:18→20:57)
[2017-07-22] MEDS: Levothyroxine 100 MCG TAB PO SCH (05:54)
[2017-07-22] MEDS: (Novolog) Insulin Aspart, Recombinant 100 u/ml 10 ml vial SC SCH ×4 (06:34→21:02)
[2017-07-22] MEDS: Ammonium Lactate 12% Lotion (225 g) EXT SCH ×2 (09:17→18:04)
--- NOTE | 2017-07-22 10:42 | CP.PCM.CON ---
<Pillo Ferrer - Last Filed: 07/22/17 10:35> History of Present Illness - History of Present Illness History of Present Illness: 52 yo male patient with PMHx of CAD, Cardia Arrhythmia (AFIB), CHF, COPD, Diabetes, DVT, Emphysema, Graves' Disease, HTN, Hypercholesterolemia, Hypothyroidism, Pneumonia, TIA was seen at bedside this AM with attending DR. Gross. concerning Right leg ulceration. Patient states that the ulceration has been on his right leg for at least 3 months and stayed the same size. Patient complains of mild pain to right leg. Patient does not recall how the ulceration started. Patient denies of any N/V/F/C or SOB today Past Patient History - Infectious Disease Hx of Infectious Diseases: None - Past Medical History & Family History Past Medical History?: Yes - Past Social History Smoking Status: Never Smoked - CARDIAC Hx Cardiac Disorders: Yes Hx Atrial Fibrillation: Yes Hx Cardia Arrhythmia: Yes (AFIB) Hx Congestive Heart Failure: Yes Hx Hypercholesterolemia: Yes Hx Hypertension: Yes Hx Pacemaker: Yes Hx Peripheral Edema: Yes - PULMONARY Hx Chronic Obstructive Pulmonary Disease (COPD): Yes Hx Emphysema: Yes Hx Pneumonia: Yes Hx Sleep Apnea: Yes - NEUROLOGICAL Hx Transient Ischemic Attacks (TIA): Yes - HEENT Hx HEENT Problems: No - RENAL Hx Chronic Kidney Disease: No - ENDOCRINE/METABOLIC Hx Hypothyroidism: Yes - HEMATOLOGICAL/ONCOLOGICAL Hx Blood Disorders: Yes Hx Blood Transfusions: Yes - INTEGUMENTARY Hx Dermatological Problems: No - MUSCULOSKELETAL/RHEUMATOLOGICAL Hx Falls: No - GASTROINTESTINAL Hx Gastrointestinal Disorders: No - GENITOURINARY/GYNECOLOGICAL Hx Genitourinary Disorders: No - PSYCHIATRIC Hx Substance Use: No - SURGICAL HISTORY Hx Coronary Artery Bypass Graft: Yes (2008) Hx Coronary Stent: Yes (3 Stents Prior to Quadruple Bypass) - ANESTHESIA Hx Anesthesia: Yes Hx Anesthesia Reactions: No Hx Malignant Hyperthermia: No Has any member of the family had a problem w/ anesthesia?: No Meds Allergies/Adverse Reactions: Allergies Allergy/AdvReac Type Severity Reaction Status Date / Time No Known Drug Allergies Allergy n/a Verified 07/15/17 22:08 - Medications Medications: Current Medications Apixaban (Eliquis) 5 mg PO Q12 [facility] Last Admin: 07/22/17 09:12 Dose: 5 mg Carvedilol (Coreg) 25 mg PO BID [facility] Last Admin: 07/22/17 09:13 Dose: 25 mg Clopidogrel Bisulfate (Plavix) 75 mg PO DAILY [facility] Last Admin: 07/22/17 09:12 Dose: 75 mg Furosemide (Lasix) 40 mg IVP DAILY [facility] Last Admin: 07/22/17 09:10 Dose: 40 mg Hydroxychloroquine Sulfate (Plaquenil) 200 mg PO BID [facility] PRN Reason: Protocol Last Admin: 07/22/17 09:12 Dose: 200 mg Clindamycin Phosphate (Cleocin In Normal Saline) 600 mg in 50 mls @ 100 mls/hr IVPB Q6H [facility] PRN Reason: Protocol Last Admin: 07/22/17 08:09 Dose: 100 mls/hr Insulin Aspart (Novolog) 0 unit SC ACHS [facility] PRN Reason: Protocol Last Admin: 07/22/17 06:34 Dose: 10 unit Lactic Acid (Lac-Hydrin 12% Lotion (225 G)) 0 gm EXT BID [facility] Last Admin: 07/22/17 09:17 Dose: 1 applic Levothyroxine Sodium (Synthroid) 100 mcg PO 0630 [facility] Last Admin: 07/22/17 05:54 Dose: 100 mcg Lisinopril (Zestril) 5 mg PO DAILY [facility] Last Admin: 07/22/17 09:12 Dose: 5 mg [facility] Last Admin: 07/22/17 08:09 Dose: Not Given Mupirocin (Bactroban Ointment) 0 gm TOP BID [facility] Last Admin: 07/22/17 09:10 Dose: 1 applic Nitroglycerin (Nitrostat Sl Tab) 0.4 mg SL Q5MIN PRN PRN Reason: chest pain Oxycodone HCl (Oxycodone Immediate Release Tab) 30 mg PO Q4H PRN PRN Reason: Pain, Mild (1-3) Last Admin: 07/22/17 08:07 Dose: 30 mg Promethazine HCl (Phenergan Syrup) 6.25 mg PO Q6 PRN PRN Reason: Cough Rosuvastatin Calcium (Crestor) 40 mg PO HS [facility] Last Admin: 07/21/17 21:33 Dose: 40 mg Sitagliptin Phosphate (Januvia) 50 mg PO DAILY [facility] Last Admin: 07/22/17 09:13 Dose: 50 mg Physical Exam - Constitutional Appears: Well, Non-toxic, No Acute Distress - Head Exam Head Exam: ATRAUMATIC - Extremities Exam Additional comments: Right lower extremity exam DERM: Superficial ulceration noted to right leg anteriorly measuring 3cm x 2cm x 0.3cm with fibrotic base, Another superficial ulceration noted to medial aspect of right leg measuring 2cm x 1cm x 0.3cm with fibrotic base. Mild serous drainage noted to ulcerations. Nop purulent discharge noted from the ulcers. No erythema noted,no sign of acute infection is noted. No mal-odor noted. NO PTB VASC: non-palpable DP and PT noted bilaterally, DRY JANITOR less than 3 seconds noted to digits ORTHO: Decreased ROM to joints distal to knee bilaterally, No pain induced upon passive ROM NEURO: Gross sensation diminished - Neurological Exam Neurological exam: Oriented x3 - Psychiatric Exam Psychiatric exam: Normal Affect, Normal Mood - Skin Skin Exam: Normal Color, Warm Results - Vital Signs Recent Vital Signs: Last Vital Signs Temp 98.1 F 07/22/17 07:20 Pulse 70 07/22/17 07:40 Resp 20 07/22/17 07:20 BP 139/83 07/22/17 09:13 Pulse Ox 100 07/22/17 07:20 - Labs Result Diagrams: 07/21/17 11:34 07/21/17 11:34 Labs: Laboratory Results - last 24 hr 07/21/17 07/21/17 07/21/17 10:59 11:34 11:34 WBC 6.9 RBC 4.13 L Hgb 11.0 L Hct 34.3 L MCV 82.9 MCH 26.5 L MCHC 32.0 L RDW 15.2 H Plt Count 190 MPV 9.0 Neut % (Auto) 71.3 Lymph % (Auto) 19.6 L Ness % (Auto) 7.0 Eos % (Auto) 1.5 Baso % (Auto) 0.6 Neut # (Auto) 4.9 Lymph # (Auto) 1.4 Ness # (Auto) 0.5 Eos # (Auto) 0.1 Baso # (Auto) 0.0 Sodium 139 Potassium 3.8 Chloride 102 Carbon Dioxide 28 Anion Gap 13 BUN 19 Creatinine 0.9 Est GFR ( Amer) > 60 Est GFR (Non-Af Amer) > 60 POC Glucose (mg/dL) 306 H Random Glucose 338 H Calcium 8.5 L Total Bilirubin 0.4 AST 14 L D ALT 11 L D Alkaline Phosphatase 108 Total Protein 7.0 Albumin 3.4 L Globulin 3.6 Albumin/Globulin Ratio 0.9 L 07/21/17 07/21/17 07/22/17 16:23 21:18 06:07 WBC RBC Hgb Hct MCV MCH MCHC RDW Plt Count MPV Neut % (Auto) Lymph % (Auto) Ness % (Auto) Eos % (Auto) Baso % (Auto) Neut # (Auto) Lymph # (Auto) Ness # (Auto) Eos # (Auto) Baso # (Auto) Sodium Potassium Chloride Carbon Dioxide Anion Gap BUN Creatinine Est GFR ( Amer) Est GFR (Non-Af Amer) POC Glucose (mg/dL) 276 H 281 H 402 H* Random Glucose Calcium Total Bilirubin AST ALT Alkaline Phosphatase Total Protein Albumin Globulin Albumin/Globulin Ratio Assessment & Plan - Assessment and Plan (Free Text) Assessment: 52 yo male patient presenting with chronic ulceration to right leg Plan: Patient was seen, evaluated with attending DR. Gross labs and vitals reviewed; afebrile, Right leg dressed with Xeroform DSD Lower extremity Doppler study ordered Xray of right lower extremity ordered Podiatry will continue to follow in-house <Santi Gross - Last Filed: 07/22/17 16:55> Meds - Medications Medications: Current Medications Apixaban (Eliquis) 5 mg PO Q12 [facility] Last Admin: 07/22/17 09:12 Dose: 5 mg Carvedilol (Coreg) 25 mg PO BID [facility] Last Admin: 07/22/17 09:13 Dose: 25 mg Clopidogrel Bisulfate (Plavix) 75 mg PO DAILY [facility] Last Admin: 07/22/17 09:12 Dose: 75 mg Furosemide (Lasix) 40 mg IVP DAILY [facility] Last Admin: 07/22/17 09:10 Dose: 40 mg Hydroxychloroquine Sulfate (Plaquenil) 200 mg PO BID [facility] PRN Reason: Protocol Last Admin: 07/22/17 09:12 Dose: 200 mg Doxycycline Hyclate 100 mg/ (Sodium Chloride) 100 mls @ 100 mls/hr IVPB Q12H [facility] PRN Reason: Protocol Last Admin: 07/22/17 14:39 Dose: 100 mls/hr Insulin Aspart (Novolog) 0 unit SC ACHS [facility] PRN Reason: Protocol Last Admin: 07/22/17 12:30 Dose: 6 unit Lactic Acid (Lac-Hydrin 12% Lotion (225 G)) 0 gm EXT BID [facility] Last Admin: 07/22/17 09:17 Dose: 1 applic Levothyroxine Sodium (Synthroid) 100 mcg PO 0630 [facility] Last Admin: 07/22/17 05:54 Dose: 100 mcg Lisinopril (Zestril) 5 mg PO DAILY [facility] Last Admin: 07/22/17 09:12 Dose: 5 mg [facility]) [facility] Last Admin: 07/22/17 16:36 Dose: Not Given Mupirocin (Bactroban Ointment) 0 gm TOP BID [facility] Last Admin: 07/22/17 09:10 Dose: 1 applic Nitroglycerin (Nitrostat Sl Tab) 0.4 mg SL Q5MIN PRN PRN Reason: chest pain Oxycodone HCl (Oxycodone Immediate Release Tab) 30 mg PO Q4H PRN PRN Reason: Pain, Mild (1-3) Last Admin: 07/22/17 16:28 Dose: 30 mg Promethazine HCl (Phenergan Syrup) 6.25 mg PO Q6 PRN PRN Reason: Cough Rosuvastatin Calcium (Crestor) 40 mg PO [facility] Last Admin: 07/21/17 21:33 Dose: 40 mg Sitagliptin Phosphate (Januvia) 50 mg PO DAILY [facility] Last Admin: 07/22/17 09:13 Dose: 50 mg Results - Vital Signs Recent Vital Signs: Last Vital Signs Temp 98.1 F 07/22/17 07:20 Pulse 70 07/22/17 07:40 Resp 20 07/22/17 07:20 BP 139/83 07/22/17 09:13 Pulse Ox 100 07/22/17 07:20 - Labs Result Diagrams: 07/22/17 13:39 07/22/17 13:39 Labs: Laboratory Results - last 24 hr 07/21/17 07/22/17 07/22/17 21:18 06:07 11:19 WBC RBC Hgb Hct MCV MCH MCHC RDW Plt Count MPV Sodium Potassium Chloride Carbon Dioxide Anion Gap BUN Creatinine Est GFR ( Amer) Est GFR (Non-Af Amer) POC Glucose (mg/dL) 281 H 402 H* 313 H Random Glucose Calcium Total Bilirubin AST ALT Alkaline Phosphatase Total Protein Albumin Globulin Albumin/Globulin Ratio 07/22/17 07/22/17 07/22/17 13:39 13:39 16:46 WBC 7.4 RBC 4.10 L Hgb 11.0 L Hct 33.9 L MCV 82.7 MCH 26.8 L MCHC 32.5 L RDW 15.5 H Plt Count 183 MPV 8.7 Sodium 139 Potassium 3.8 Chloride 98 Carbon Dioxide 29 Anion Gap 15 BUN 19 Creatinine 1.0 Est GFR ( Amer) > 60 Est GFR (Non-Af Amer) > 60 POC Glucose (mg/dL) 261 H Random Glucose 265 H Calcium 8.4 L Total Bilirubin 0.5 AST 14 L ALT 12 L Alkaline Phosphatase 107 Total Protein 7.4 Albumin 3.7 Globulin 3.7 Albumin/Globulin Ratio 1.0 Assessment & Plan - Assessment and Plan (Free Text) Plan: Seen at bedside with Resident. Agree with above findings . labs and chart reviewed . will follow for wound care/DR Gabby Gross
--- NOTE | 2017-07-22 12:42 | RAD ---
PROCEDURE: Right Ankle Radiographs. HISTORY: right lower extremity pain COMPARISON: None FINDINGS: BONES: Normal. No fracture. JOINTS: Normal. No osteoarthritis. Ankle mortise maintained. Talar dome intact SOFT TISSUES: Nonspecific circumferential soft tissue swelling. OTHER FINDINGS: None. IMPRESSION: No acute fracture.
--- NOTE | 2017-07-22 12:43 | RAD ---
PROCEDURE: Radiographs of the right tibia and fibula. HISTORY: right lower extremity pain COMPARISON: None available. TECHNIQUE: Frontal and lateral views obtained. FINDINGS: BONES: No fracture or destructive lesion. JOINT SPACES: Unremarkable. OTHER FINDINGS: New diffuse soft tissue swelling, nonspecific. IMPRESSION: Diffuse soft tissue swelling.
--- NOTE | 2017-07-22 13:29 | CARD ---
APPROVED REPORT EKG Measurement Heart [id number] <Conclusion> Atrial-sensed ventricular-paced rhythm Abnormal ECG
[2017-07-22 13:44] LABS: MEAN CELL VOLUME 82.7 fL (80.0-94.0); MEAN CORPUSCULAR HEMOGLOBIN 26.8 pg (27.0-31.0); MEAN CORPUSCULAR HGB CONC 32.5 g/dL (33.0-37.0); MEAN PLATELET VOLUME 8.7 fL (7.2-11.7); RBC 4.1 Mil/uL (4.40-5.90); RED CELL DISTRIBUTION WIDTH 15.5 % (11.5-14.5); WHITE BLOOD COUNT 7.4 K/uL (4.8-10.8)
[2017-07-22 13:58] LABS: ALBUMIN 3.7 g/dL (3.5-5.0); ALT/SGPT 12 U/L (21-72); AST/SGOT 14 U/L (17-59); BLOOD UREA NITROGEN 19 mg/dL (9-20); CALCIUM 8.4 mg/dl (8.6-10.4); GFR AFRICAN-AMERICAN > 60; GFR NON-AFRICAN AMERICAN > 60
--- NOTE | 2017-07-22 15:23 | VASCLAB ---
PROCEDURE: Lower Extremity Venous Duplex Exam. HISTORY: r/o dvt PRIORS: None. TECHNIQUE: Bilateral common femoral, femoral, popliteal and posterior tibial, peroneal and great saphenous veins were evaluated. Flow was assessed with color Doppler, compressibility, assessment of phasic flow and augmentation response. Report prepared by ANNY Miller FINDINGS: RIGHT: 1. Common Femoral Vein: 1.1. Compressibility - Fully compressible: Thrombus - None : Flow - Phasic: Augmentation -Normal: Reflux - None. 2. Femoral Vein: 2.1. Compressibility - Fully compressible: Thrombus - None : Flow - Phasic: Augmentation -Normal: Reflux - None. 3. Popliteal Vein: 3.1. Compressibility - Fully compressible: Thrombus - None : Flow - Phasic: Augmentation -Normal: Reflux - None. 4. Posterior Tibial Vein: 4.1. Compressibility - : Thrombus - : Flow - : Augmentation -: Reflux - . 5. Peroneal Vein: 5.1. Compressibility - : Thrombus - : Flow - : Augmentation -: Reflux - . 6. Great Saphenous Vein: 6.1. Compressibility - : Thrombus - : Flow - : Augmentation - : Reflux - . LEFT: 1. Common Femoral Vein: 1.1. Compressibility - Fully compressible: Thrombus - None: Flow - Phasic: Augmentation -Normal: Reflux - None. 2. Femoral Vein: 2.1. Compressibility - Fully compressible: Thrombus - None: Flow - Phasic: Augmentation -Normal: Reflux - None. 3. Popliteal Vein: 3.1. Compressibility - Fully compressible: Thrombus - None : Flow - Phasic: Augmentation -Normal: Reflux - None. 4. Posterior Tibial Vein: 4.1. Compressibility - Fully compressible: Thrombus - None: Flow - Phasic: Augmentation -Normal: Reflux - None. 5. Peroneal Vein: 5.1. Compressibility - Fully compressible: Thrombus - None: Flow - Phasic: Augmentation -Normal: Reflux - None. 6. Great Saphenous Vein: 6.1. Compressibility - Fully compressible: Thrombus - None: Flow - Phasic: Augmentation - Normal: Reflux - None. OTHER FINDINGS: Right: Due to swelling in the calf, the right peroneal and posterior tibial vein was not visualized. Left: None significant. IMPRESSION: Right: No evidence of deep or superficial vein thrombosis of the right lower extremity. Normal valve function noted of the right side. The right greater saphenous vein has been previously removed. Left: No evidence of deep or superficial vein thrombosis of the left lower extremity. Normal valve function noted of the left side.
--- NOTE | 2017-07-22 23:50 | CP.PCM.PN ---
Subjective - Date & Time of Evaluation Date of Evaluation: 07/22/17 Time of Evaluation: 18:35 - Subjective Subjective: Pt seen and examined at bedside Objective - Vital Signs/Intake and Output Vital Signs (last 24 hours): Temp Pulse Resp BP Pulse Ox 97.9 F 87 20 118/65 95 07/22/17 15:30 07/22/17 15:30 07/22/17 15:30 07/22/17 18:03 07/22/17 15:30 Intake and Output: 07/22/17 07/23/17 18:59 06:59 Intake Total 500 Output Total 500 Balance 0 - Medications Medications: Current Medications Apixaban (Eliquis) 5 mg PO Q12 [facility] Last Admin: 07/22/17 21:05 Dose: 5 mg Carvedilol (Coreg) 25 mg PO BID [facility] Last Admin: 07/22/17 18:03 Dose: 25 mg Clopidogrel Bisulfate (Plavix) 75 mg PO DAILY [facility] Last Admin: 07/22/17 09:12 Dose: 75 mg Furosemide (Lasix) 40 mg IVP DAILY [facility] Last Admin: 07/22/17 09:10 Dose: 40 mg Hydroxychloroquine Sulfate (Plaquenil) 200 mg PO BID [facility] PRN Reason: Protocol Last Admin: 07/22/17 18:27 Dose: 200 mg Doxycycline Hyclate 100 mg/ (Sodium Chloride) 100 mls @ 100 mls/hr IVPB Q12H [facility] PRN Reason: Protocol Last Admin: 07/22/17 14:39 Dose: 100 mls/hr Insulin Aspart (Novolog) 0 unit SC ACHS [facility] PRN Reason: Protocol Last Admin: 07/22/17 21:02 Dose: 2 unit Lactic Acid (Lac-Hydrin 12% Lotion (225 G)) 0 gm EXT BID [facility] Last Admin: 07/22/17 18:04 Dose: 1 applic Levothyroxine Sodium (Synthroid) 100 mcg PO 0630 [facility] Last Admin: 07/22/17 05:54 Dose: 100 mcg Lisinopril (Zestril) 5 mg PO DAILY [facility] Last Admin: 07/22/17 09:12 Dose: 5 mg [facility] Last Admin: 07/22/17 16:36 Dose: Not Given Mupirocin (Bactroban Ointment) 0 gm TOP BID [facility] Last Admin: 07/22/17 18:03 Dose: 1 applic Nitroglycerin (Nitrostat Sl Tab) 0.4 mg SL Q5MIN PRN PRN Reason: chest pain Oxycodone HCl (Oxycodone Immediate Release Tab) 30 mg PO Q4H PRN PRN Reason: Pain, Mild (1-3) Last Admin: 07/22/17 20:57 Dose: 30 mg Promethazine HCl (Phenergan Syrup) 6.25 mg PO Q6 PRN PRN Reason: Cough Rosuvastatin Calcium (Crestor) 40 mg PO HS [facility] Last Admin: 07/22/17 21:01 Dose: 40 mg Sitagliptin Phosphate (Januvia) 50 mg PO DAILY [facility] Last Admin: 07/22/17 09:13 Dose: 50 mg - Labs Labs: 07/22/17 13:39 07/22/17 13:39 PT 15.1 SECONDS (9.7-12.2) H 07/20/17 00:10 INR 1.4 07/20/17 00:10 APTT 33 SECONDS (21-34) 07/20/17 00:10 Assessment and Plan (1) Cellulitis of right lower leg Status: Acute (2) Cardiomyopathy Status: Active (3) Hypertensive heart disease Status: Active (4) Allergic rhinitis Status: Acute (5) CHF exacerbation Status: Acute
[2017-07-23] MEDS ORDERED: Sodium Chloride 0.9% 250 ML IV ONE (01:10)
[2017-07-23] MEDS: oxyCODONE 30 mg Immediate Release Tab PO PRN ×6 (01:11→22:09)
[2017-07-23] MEDS: Levothyroxine 100 MCG TAB PO SCH (06:01)
[2017-07-23] MEDS: (Novolog) Insulin Aspart, Recombinant 100 u/ml 10 ml vial SC SCH ×4 (08:20→22:09)
[2017-07-23] MEDS: Ammonium Lactate 12% Lotion (225 g) EXT SCH ×2 (09:19→18:37)
[2017-07-23 11:56] LABS: HEMOGLOBIN 11.1 g/dL (12.0-18.0); MEAN CORPUSCULAR HEMOGLOBIN 26.8 pg (27.0-31.0); MEAN CORPUSCULAR HGB CONC 32.7 g/dL (33.0-37.0); MEAN PLATELET VOLUME 8.6 fL (7.2-11.7); RBC 4.15 Mil/uL (4.40-5.90); RED CELL DISTRIBUTION WIDTH 14.9 % (11.5-14.5); WHITE BLOOD COUNT 7.6 K/uL (4.8-10.8)
[2017-07-23 12:06] LABS: ALB/GLOB RATIO 0.9 (1.0-2.1); ALBUMIN 3.3 g/dL (3.5-5.0); ALT/SGPT 20 U/L (21-72); AST/SGOT 18 U/L (17-59); BLOOD UREA NITROGEN 19 mg/dL (9-20); CALCIUM 8.6 mg/dl (8.6-10.4); GFR AFRICAN-AMERICAN > 60; GFR NON-AFRICAN AMERICAN > 60
--- NOTE | 2017-07-23 14:34 | CP.PCM.PN ---
Subjective - Date & Time of Evaluation Date of Evaluation: 07/23/17 Time of Evaluation: 14:30 - Subjective Subjective: Podiatry progress note for Dr. Gross 52 yo male patient was seen at bedside this AM with attending DR. Gross concerning Right leg ulceration. Patient states that the ulceration has been on his right leg for at least 3 months with consistent serous drainage. Patient complains of mild pain to right leg. Patient was advised that bonescan was ordered and will be performed today. Patient denies of any N/V/F/C or SOB today Objective - Vital Signs/Intake and Output Vital Signs (last 24 hours): Temp Pulse Resp BP Pulse Ox 98.1 F 67 20 110/76 100 07/23/17 08:00 07/23/17 08:00 07/23/17 08:00 07/23/17 09:19 07/23/17 08:00 Intake and Output: 07/23/17 07/23/17 06:59 18:59 Intake Total 500 Output Total 500 Balance 0 - Medications Medications: Current Medications Apixaban (Eliquis) 5 mg PO Q12 [facility] Last Admin: 07/23/17 09:18 Dose: 5 mg Carvedilol (Coreg) 25 mg PO BID [facility] Last Admin: 07/23/17 09:19 Dose: 25 mg Clopidogrel Bisulfate (Plavix) 75 mg PO DAILY [facility] Last Admin: 07/23/17 09:19 Dose: 75 mg Furosemide (Lasix) 40 mg IVP DAILY [facility] Last Admin: 07/23/17 09:19 Dose: 40 mg Hydroxychloroquine Sulfate (Plaquenil) 200 mg PO BID [facility] PRN Reason: Protocol Last Admin: 07/22/17 18:27 Dose: 200 mg Doxycycline Hyclate 100 mg/ (Sodium Chloride) 100 mls @ 100 mls/hr IVPB Q12H [facility] PRN Reason: Protocol Last Admin: 07/23/17 03:03 Dose: 100 mls/hr Insulin Aspart (Novolog) 0 unit SC ACHS [facility] PRN Reason: Protocol Last Admin: 07/23/17 12:10 Dose: 3 unit Lactic Acid (Lac-Hydrin 12% Lotion (225 G)) 0 gm EXT BID [facility] Last Admin: 07/23/17 09:19 Dose: 1 applic Levothyroxine Sodium (Synthroid) 100 mcg PO 0630 [facility] Last Admin: 07/23/17 06:01 Dose: 100 mcg Lisinopril (Zestril) 5 mg PO DAILY [facility] Last Admin: 07/23/17 09:18 Dose: 5 mg Metformin HCl (Glucophage) [address] Last Admin: 07/23/17 08:21 Dose: Not Given Mupirocin (Bactroban Ointment) 0 gm TOP BID [facility] Last Admin: 07/23/17 09:19 Dose: 1 applic Nitroglycerin (Nitrostat Sl Tab) 0.4 mg SL Q5MIN PRN PRN Reason: chest pain Oxycodone HCl (Oxycodone Immediate Release Tab) 30 mg PO Q4H PRN PRN Reason: Pain, Mild (1-3) Last Admin: 07/23/17 08:54 Dose: 30 mg Promethazine HCl (Phenergan Syrup) 6.25 mg PO Q6 PRN PRN Reason: Cough Rosuvastatin Calcium (Crestor) 40 mg PO HS [facility] Last Admin: 07/22/17 21:01 Dose: 40 mg Sitagliptin Phosphate (Januvia) 50 mg PO DAILY [facility] Last Admin: 07/23/17 09:19 Dose: 50 mg - Labs Labs: 07/23/17 11:45 07/23/17 11:45 PT 15.1 SECONDS (9.7-12.2) H 07/20/17 00:10 INR 1.4 07/20/17 00:10 APTT 33 SECONDS (21-34) 07/20/17 00:10 - Constitutional Appears: Well, Non-toxic, No Acute Distress - Head Exam Head Exam: ATRAUMATIC - Extremities Exam Additional comments: Right lower extremity exam DERM: Superficial ulceration noted to right leg anteriorly measuring 3cm x 2cm x 0.3cm with fibrotic base, Another superficial ulceration noted to medial aspect of right leg measuring 2cm x 1cm x 0.3cm with fibrotic base. Mild serous drainage noted to ulcerations. Nop purulent discharge noted from the ulcers. No erythema noted,no sign of acute infection is noted. No mal-odor noted. NO PTB VASC: non-palpable DP and PT noted bilaterally, [employer] less than 3 seconds noted to digits ORTHO: Decreased ROM to joints distal to knee bilaterally, No pain induced upon passive ROM NEURO: Gross sensation diminished - Neurological Exam Neurological Exam: Alert, Awake, Oriented x3 - Psychiatric Exam Psychiatric exam: Normal Affect, Normal Mood - Skin Skin Exam: Normal Color, Warm Assessment and Plan - Assessment and Plan (Free Text) Assessment: 52 yo male patient presenting with chronic ulceration to right leg Plan: Patient was seen, evaluated with attending DR. Gross labs and vitals reviewed; afebrile, Right leg dressed with Xeroform DSD Xray is negative for any soft tissue emphysema, fracture or OM Bonescan ordered and pending Podiatry will continue to follow in-house
[2017-07-24] MEDS: oxyCODONE 30 mg Immediate Release Tab PO PRN ×3 (02:15→13:04)
--- NOTE | 2017-07-24 05:34 | CP.PCM.PN ---
Subjective - Date & Time of Evaluation Date of Evaluation: 07/23/17 Time of Evaluation: 20:00 - Subjective Subjective: Patient seen and evaluated at bedside complains of mild pain to right leg. Patient was advised that bonescan was ordered and will be performed today. Patient denies of any N/V/F/C or SOB today Objective - Vital Signs/Intake and Output Vital Signs (last 24 hours): Temp Pulse Resp BP Pulse Ox 98.2 F 78 20 134/82 98 07/24/17 00:18 07/24/17 00:18 07/24/17 00:18 07/24/17 00:18 07/24/17 00:18 - Medications Medications: Current Medications Apixaban (Eliquis) 5 mg PO Q12 [facility] Last Admin: 07/23/17 22:09 Dose: 5 mg Carvedilol (Coreg) 25 mg PO BID [facility] Last Admin: 07/23/17 17:25 Dose: Not Given Clopidogrel Bisulfate (Plavix) 75 mg PO DAILY [facility] Last Admin: 07/23/17 09:19 Dose: 75 mg Furosemide (Lasix) 40 mg IVP DAILY [facility] Last Admin: 07/23/17 09:19 Dose: 40 mg Hydroxychloroquine Sulfate (Plaquenil) 200 mg PO BID [facility] PRN Reason: Protocol Last Admin: 07/23/17 18:36 Dose: 200 mg Doxycycline Hyclate 100 mg/ (Sodium Chloride) 100 mls @ 100 mls/hr IVPB Q12H [facility] PRN Reason: Protocol Last Admin: 07/24/17 04:01 Dose: Not Given Insulin Aspart (Novolog) 0 unit SC ACHS [facility] PRN Reason: Protocol Last Admin: 07/23/17 22:09 Dose: 4 unit Lactic Acid (Lac-Hydrin 12% Lotion (225 G)) 0 gm EXT BID [facility] Last Admin: 07/23/17 18:37 Dose: Not Given Levothyroxine Sodium (Synthroid) 100 mcg PO 0630 [facility] Last Admin: 07/23/17 06:01 Dose: 100 mcg Lisinopril (Zestril) 5 mg PO DAILY [facility] Last Admin: 07/23/17 09:18 Dose: 5 mg Metformin HCl (Glucophage) 500 mg PO BIDCC [facility] Last Admin: 07/23/17 18:37 Dose: Not Given Mupirocin (Bactroban Ointment) 0 gm TOP BID [facility] Last Admin: 07/23/17 18:37 Dose: 1 applic Nitroglycerin (Nitrostat Sl Tab) 0.4 mg SL Q5MIN PRN PRN Reason: chest pain Promethazine HCl (Phenergan Syrup) 6.25 mg PO Q6 PRN PRN Reason: Cough Rosuvastatin Calcium (Crestor) 40 mg PO HS [facility] Last Admin: 07/23/17 22:08 Dose: 40 mg Sitagliptin Phosphate (Januvia) 50 mg PO DAILY [facility] Last Admin: 07/23/17 09:19 Dose: 50 mg - Labs Labs: 07/23/17 11:45 07/23/17 11:45 PT 15.1 SECONDS (9.7-12.2) H 07/20/17 00:10 INR 1.4 07/20/17 00:10 APTT 33 SECONDS (21-34) 07/20/17 00:10 Assessment and Plan (1) Cellulitis of right lower leg Status: Acute (2) Cardiomyopathy Status: Active (3) Hypertensive heart disease Status: Active (4) Allergic rhinitis Status: Acute (5) CHF exacerbation Status: Acute
[2017-07-24] MEDS: Levothyroxine 100 MCG TAB PO SCH (05:40)
[2017-07-24] MEDS ORDERED: oxyCODONE 30 mg Immediate Release Tab PO ONE (06:35)
[2017-07-24 07:37] VITALS: BP 143/86; PULSE 79; TEMP 98.5; O2SAT 100
--- NOTE | 2017-07-24 07:58 | NM ---
PROCEDURE: Whole Body Bone Scan HISTORY: R/O OSTEO RIGHT LEG COMPARISON: None available. TECHNIQUE: Following administration of 23.6 Mat of Tc MDP dynamic multiplanar images of the bilateral legs were obtained were obtained with immediate and delayed static images obtained in multiple planes at the bilateral thighs, knees, legs and feet. FINDINGS: Evidence for bony metastatic disease: None. Degenerative uptake: Bilateral knees and ankles. Physiologic uptake: Normal physiologic activity in the kidneys. Other findings: Diffusely increased uptake at the right leg suggests cellulitis. IMPRESSION: Right leg cellulitis is suggested. Further clinical correlation is advised no definite evidence of osteomyelitis at the bilateral tibia and fibula with presumed degenerative uptake identified at the bilateral knees and ankles. The study effectively evaluates the bilateral tibia and fibula as this is the only section evaluated in the dynamic portion of the exam. If osteomyelitis of the right knee or ankle is clinically suspected then MRI is recommended for evaluation as these joints were not included in dynamic phase portion of the exam which is not technically possible.
[2017-07-24] MEDS: (Novolog) Insulin Aspart, Recombinant 100 u/ml 10 ml vial SC SCH ×2 (08:30→11:30)
[2017-07-24] MEDS: Ammonium Lactate 12% Lotion (225 g) EXT SCH (09:06)
[2017-07-24 11:26] LABS: HEMOGLOBIN 10.9 g/dL (12.0-18.0); MEAN CELL VOLUME 81.4 fL (80.0-94.0); MEAN CORPUSCULAR HEMOGLOBIN 26.8 pg (27.0-31.0); MEAN CORPUSCULAR HGB CONC 32.9 g/dL (33.0-37.0); MEAN PLATELET VOLUME 8.8 fL (7.2-11.7); RBC 4.06 Mil/uL (4.40-5.90); RED CELL DISTRIBUTION WIDTH 14.9 % (11.5-14.5); WHITE BLOOD COUNT 7.7 K/uL (4.8-10.8)
--- NOTE | 2017-07-24 11:35 | CP.PCM.PN ---
Subjective - Date & Time of Evaluation Date of Evaluation: 07/24/17 Time of Evaluation: 11:35 - Subjective Subjective: PATIENT WAS ADMITTED SOB AAOX3 ON ROOM AIR NO SIGN OF DISTRESS NOTED Objective - Vital Signs/Intake and Output Vital Signs (last 24 hours): Temp Pulse Resp BP Pulse Ox 98.5 F 79 20 143/86 100 07/24/17 07:20 07/24/17 07:20 07/24/17 07:20 07/24/17 09:05 07/24/17 07:20 - Medications Medications: Current Medications Apixaban (Eliquis) 5 mg PO Q12 [facility] Last Admin: 07/24/17 09:03 Dose: 5 mg Carvedilol (Coreg) 25 mg PO BID [facility] Last Admin: 07/24/17 09:02 Dose: 25 mg Clopidogrel Bisulfate (Plavix) 75 mg PO DAILY [facility] Last Admin: 07/24/17 09:03 Dose: 75 mg Furosemide (Lasix) 40 mg IVP DAILY [facility] Last Admin: 07/24/17 09:05 Dose: 40 mg Hydroxychloroquine Sulfate (Plaquenil) 200 mg PO BID [facility] PRN Reason: Protocol Last Admin: 07/24/17 09:02 Dose: 200 mg Doxycycline Hyclate 100 mg/ (Sodium Chloride) 100 mls @ 100 mls/hr IVPB Q12H [facility] PRN Reason: Protocol Last Admin: 07/24/17 07:23 Dose: 100 mls/hr Insulin Aspart (Novolog) 0 unit SC ACHS [facility] PRN Reason: Protocol Last Admin: 07/24/17 08:30 Dose: 3 unit Lactic Acid (Lac-Hydrin 12% Lotion (225 G)) 0 gm EXT BID [facility] Last Admin: 07/24/17 09:06 Dose: 1 applic Levothyroxine Sodium (Synthroid) 100 mcg PO 0630 [facility] Last Admin: 07/24/17 05:40 Dose: 100 mcg Lisinopril (Zestril) 5 mg PO DAILY [facility] Last Admin: 07/24/17 09:03 Dose: 5 mg Metformin HCl (Glucophage) 500 mg PO BIDCC [facility] Last Admin: 07/24/17 08:28 Dose: Not Given Mupirocin (Bactroban Ointment) 0 gm TOP BID [facility] Last Admin: 07/24/17 09:05 Dose: 1 applic Nitroglycerin (Nitrostat Sl Tab) 0.4 mg SL Q5MIN PRN PRN Reason: chest pain Oxycodone HCl (Oxycodone Immediate Release Tab) 30 mg PO Q4H PRN PRN Reason: Pain, moderate (4-7) Last Admin: 07/24/17 09:03 Dose: 30 mg Promethazine HCl (Phenergan Syrup) 6.25 mg PO Q6 PRN PRN Reason: Cough Rosuvastatin Calcium (Crestor) 40 mg PO HS [facility] Last Admin: 07/23/17 22:08 Dose: 40 mg Sitagliptin Phosphate (Januvia) 50 mg PO DAILY [facility] Last Admin: 07/24/17 09:03 Dose: 50 mg - Labs Labs: 07/24/17 11:20 07/23/17 11:45 PT 15.1 SECONDS (9.7-12.2) H 07/20/17 00:10 INR 1.4 07/20/17 00:10 APTT 33 SECONDS (21-34) 07/20/17 00:10 Assessment and Plan - Assessment and Plan (Free Text) Assessment: PATIENT SEEN AND EXAMINED AT THE BEDSIDE X RAY OF ANKLE DONE SHOW NO FX BONE SCAN WAS DONE NEG FOR OSTEO PODIATRY RECOMMEND DSD AND BACTROBEN DISCUSS WITH DR BLANDON WHO CLEAR FOR DC FOLLOW UP WITH DR BLANDON AT HIS OFFICE 1-2 WEEK ---CALL FOR APPOINTMENT FOLLOW UP WITH VICKI IN 1 WEEK AT THE CLINIC ---CALL FOR APPOINTMENT CONTINUE ALL YOUR HOME MEDICATION NEW PRESCRIPTION GIVEN DOXY 100 MG BY MOUTH EVERY 12 HOURS FOR 14 DAYS BACTROBEN TOP TWICE A DAY AMMONIUM LACTATE IN THE AFFECTED AREA TWICE A DAY ACTIVITY TOLERATED CALL DR BLANDON OR GO TO THE EMERGENCY ROOM IF SYMPTOMS RETURN OR WORSENING DISCUSS WITH PATIENT WHO AGREE AND VERBALIZED UNDERSTANDING
[2017-07-24 11:54] LABS: ALB/GLOB RATIO 0.9 (1.0-2.1); ALBUMIN 3.6 g/dL (3.5-5.0); ALT/SGPT 11 U/L (21-72); AST/SGOT 17 U/L (17-59); BLOOD UREA NITROGEN 15 mg/dL (9-20); CALCIUM 8.6 mg/dl (8.6-10.4); GFR AFRICAN-AMERICAN > 60; GFR NON-AFRICAN AMERICAN > 60
--- NOTE | 2017-07-25 03:52 | CP.PCM.DIS ---
Provider - Provider Date of Admission: 07/20/17 02:24 Attending physician: Ousmane Amor MD Time Spent in preparation of Discharge (in minutes): 45 Diagnosis - Discharge Diagnosis (1) Cellulitis of right lower leg Status: Acute (2) Cardiomyopathy Status: Active (3) Hypertensive heart disease Status: Active (4) Allergic rhinitis Status: Acute (5) CHF exacerbation Status: Acute Hospital Course - Lab Results Lab Results: Micro Results 07/19/17 08:28 Blood Blood Culture - Preliminary NO GROWTH AFTER 4 DAYS 07/19/17 08:28 Blood Blood Culture - Preliminary NO GROWTH AFTER 4 DAYS 07/19/17 23:48 Leg - Right Gram Stain - Final 07/19/17 23:48 Leg - Right Wound Culture - Final Methicillin Resistant S Aureus Most Recent Lab Values WBC 7.7 K/uL (4.8-10.8) 07/24/17 11:20 RBC 4.06 Mil/uL (4.40-5.90) L 07/24/17 11:20 Hgb 10.9 g/dL (12.0-18.0) L 07/24/17 11:20 Hct 33.1 % (35.0-51.0) L 07/24/17 11:20 MCV 81.4 fL (80.0-94.0) 07/24/17 11:20 MCH 26.8 pg (27.0-31.0) L 07/24/17 11:20 MCHC 32.9 g/dL (33.0-37.0) L 07/24/17 11:20 RDW 14.9 % (11.5-14.5) H 07/24/17 11:20 Plt Count 178 K/uL (130-400) 07/24/17 11:20 MPV 8.8 fL (7.2-11.7) 07/24/17 11:20 Neut % (Auto) 71.3 % (50.0-75.0) 07/21/17 11:34 Lymph % (Auto) 19.6 % (20.0-40.0) L 07/21/17 11:34 Haakon % (Auto) 7.0 % (0.0-10.0) 07/21/17 11:34 Eos % (Auto) 1.5 % (0.0-4.0) 07/21/17 11:34 Baso % (Auto) 0.6 % (0.0-2.0) 07/21/17 11:34 Neut # (Auto) 4.9 K/uL (1.8-7.0) 07/21/17 11:34 Lymph # (Auto) 1.4 K/uL (1.0-4.3) 07/21/17 11:34 Haakon # (Auto) 0.5 K/uL (0.0-0.8) 07/21/17 11:34 Eos # (Auto) 0.1 K/uL (0.0-0.7) 07/21/17 11:34 Baso # (Auto) 0.0 K/uL (0.0-0.2) 07/21/17 11:34 Neutrophils % (Manual) 85 % (50-75) H 07/20/17 00:10 Lymphocytes % (Manual) 8 % (20-40) L 07/20/17 00:10 Monocytes % (Manual) 5 % (0-10) 07/20/17 00:10 Eosinophils % (Manual) 2 % (0-4) 07/20/17 00:10 Platelet Estimate Normal (NORMAL) 07/20/17 00:10 PT 15.1 SECONDS (9.7-12.2) H 07/20/17 00:10 INR 1.4 07/20/17 00:10 APTT 33 SECONDS (21-34) 07/20/17 00:10 D-Dimer, Quantitative 297 ng/mlDDU (0-243) H 07/20/17 00:10 Sodium 139 mmol/L (132-148) 07/24/17 11:20 Potassium 3.7 mmol/L (3.6-5.2) 07/24/17 11:20 Chloride 99 mmol/L (98-107) 07/24/17 11:20 Carbon Dioxide 29 mmol/L (22-30) 07/24/17 11:20 Anion Gap 15 (10-20) 07/24/17 11:20 BUN 15 mg/dL (9-20) 07/24/17 11:20 Creatinine 0.9 mg/dL (0.8-1.5) 07/24/17 11:20 Est GFR ( Amer) > 60 07/24/17 11:20 Est GFR (Non-Af Amer) > 60 07/24/17 11:20 POC Glucose (mg/dL) 201 mg/dL (65-110) H 07/24/17 06:34 Random Glucose 229 mg/dL (75-110) H 07/24/17 11:20 Calcium 8.6 mg/dl (8.6-10.4) 07/24/17 11:20 Total Bilirubin 0.5 mg/dL (0.2-1.3) 07/24/17 11:20 AST 17 U/L (17-59) 07/24/17 11:20 ALT 11 U/L (21-72) L D 07/24/17 11:20 Alkaline Phosphatase 106 U/L (38-126) 07/24/17 11:20 Total Creatine Kinase 47 U/L (55-170) L 07/20/17 06:26 CK-MB (Mass) 0.53 ng/mL (0.0-3.38) 07/20/17 06:26 Troponin I < 0.0120 ng/mL (0.00-0.120) 07/20/17 06:26 NT-Pro-B Natriuret Pep 779 pg/mL (0-900) 07/20/17 00:10 Total Protein 7.5 g/dL (6.3-8.3) 07/24/17 11:20 Albumin 3.6 g/dL (3.5-5.0) 07/24/17 11:20 Globulin 3.8 gm/dL (2.2-3.9) 07/24/17 11:20 Albumin/Globulin Ratio 0.9 (1.0-2.1) L 07/24/17 11:20 Urine Color Straw (YELLOW) 07/19/17 23:48 Urine Clarity Clear (Clear) 07/19/17 23:48 Urine pH 5.0 (5.0-8.0) 07/19/17 23:48 Ur Specific [place] 1.012 (1.003-1.030) 07/19/17 23:48 Urine Protein Negative mg/dL (NEGATIVE) 07/19/17 23:48 Urine Glucose (UA) 3+ mg/dL (Normal) H 07/19/17 23:48 Urine Ketones Negative mg/dL (NEGATIVE) 07/19/17 23:48 Urine Blood Negative (NEGATIVE) 07/19/17 23:48 Urine Nitrate Negative (NEGATIVE) 07/19/17 23:48 Urine Bilirubin Negative (NEGATIVE) 07/19/17 23:48 Urine Urobilinogen Normal mg/dL (0.2-1.0) 07/19/17 23:48 Ur Leukocyte Esterase Neg [place]/uL (Negative) 07/19/17 23:48 Urine RBC (Auto) < 1 /hpf (0-3) 07/19/17 23:48 Ur Squamous Epith Cells < 1 /hpf (0-5) 07/19/17 23:48 Urine Opiates Screen Positive (NEGATIVE) H 07/20/17 05:36 Urine Methadone Screen Negative (NEGATIVE) 07/20/17 05:36 Ur Barbiturates Screen Negative (NEGATIVE) 07/20/17 05:36 Ur Phencyclidine Scrn Negative (NEGATIVE) 07/20/17 05:36 Ur Amphetamines Screen Negative (NEGATIVE) 07/20/17 05:36 U Benzodiazepines Scrn Negative (NEGATIVE) 07/20/17 05:36 U Oth Cocaine Metabols Negative (NEGATIVE) 07/20/17 05:36 U Cannabinoids Screen Negative (NEGATIVE) 07/20/17 05:36 - Hospital Course Hospital Course: PATIENT SEEN AND EXAMINED AT THE BEDSIDE X RAY OF ANKLE DONE SHOW NO FX BONE SCAN WAS DONE NEG FOR OSTEO PODIATRY RECOMMEND DSD AND BACTROBEN PT CLEAR FOR DC [facility] FOLLOW UP WITH ME AT OFFICE 1-2 WEEK ---CALL FOR APPOINTMENT FOLLOW UP WITH VICKI IN 1 WEEK AT THE CLINIC ---CALL FOR APPOINTMENT CONTINUE ALL YOUR HOME MEDICATION NEW PRESCRIPTION GIVEN DOXY 100 MG BY MOUTH EVERY 12 HOURS FOR 14 DAYS BACTROBEN TOP TWICE A DAY AMMONIUM LACTATE IN THE AFFECTED AREA TWICE A DAY ACTIVITY TOLERATED CALL DR AMOR OR GO TO THE EMERGENCY ROOM IF SYMPTOMS RETURN OR WORSENING DISCUSS WITH PATIENT WHO AGREE AND VERBALIZED UNDERSTANDING Discharge Exam - Head Exam Head Exam: ATRAUMATIC - Eye Exam Eye Exam: EOMI, Normal appearance, PERRL Pupil Exam: NORMAL ACCOMODATION, PERRL - ENT Exam ENT Exam: Mucous Membranes Moist - Respiratory Exam Respiratory Exam: Clear to PA & Lateral, NORMAL BREATHING PATTERN - Cardiovascular Exam Cardiovascular Exam: REGULAR RHYTHM, +S1, +S2 - GI/Abdominal Exam GI & Abdominal Exam: Normal Bowel Sounds Discharge Plan - Discharge Medications Prescriptions: Mupirocin 2% Ointment [Bactroban Ointment] 22 gm TOP BID #1 tube Doxycycline Hyclate [Doryx] 100 mg PO Q12H 14 Days cap Ammonium Lactate 12% [Lac-Hydrin 12% Lotion (225 g)] 225 gm EXT BID #1 bottle - Follow Up Plan Condition: STABLE Disposition: HOME/ ROUTINE Instructions: Type 2 Diabetes, High Blood Pressure in Adults, Diabetes Diet , Doxycycline, Cellulitis (DC), Renal Failure Diet (DC) Additional Instructions: FOLLOW UP WITH DR AMOR AT HIS OFFICE 1-2 WEEK ---CALL FOR APPOINTMENT FOLLOW UP WITH VICKI IN 1 WEEK AT THE CLINIC ---CALL FOR APPOINTMENT CONTINUE ALL YOUR HOME MEDICATION NEW PRESCRIPTION GIVEN DOXY 100 MG BY MOUTH EVERY 12 HOURS FOR 14 DAYS BACTROBEN TOP TWICE A DAY AMMONIUM LACTATE IN THE AFFECTED AREA TWICE A DAY ACTIVITY TOLERATED CALL DR AMOR OR GO TO THE EMERGENCY ROOM IF SYMPTOMS RETURN OR WORSENING Referrals: Ousmane Amor MD [Staff Provider] - Santi Gross DPM [Staff Provider] -
== END 2017-07-24 13:30 | disposition home or self-care (01) | DRG 292 ==
LOC: C.ER 22:59 → C.9E 07-20 02:24 → C.5S 07-20 06:24
PROVIDERS: ADMIT Internal Medicine; ATTEND Internal Medicine
DX: I11.0 Hypertensive heart disease with heart failure (principal); L97.919 Non-pressure chronic ulcer of unspecified part of right lower leg with unspecified severity; L03.115 Cellulitis of right lower limb; E11.622 Type 2 diabetes mellitus with other skin ulcer; I42.9 Cardiomyopathy, unspecified; Z95.5 Presence of coronary angioplasty implant and graft; Z95.1 Presence of aortocoronary bypass graft; Z95.0 Presence of cardiac pacemaker; Z87.891 Personal history of nicotine dependence; Z87.01 Personal history of pneumonia (recurrent); Z86.73 Personal history of transient ischemic attack (TIA), and cerebral infarction without residual deficits; J43.9 Emphysema, unspecified; J30.9 Allergic rhinitis, unspecified; I50.9 Heart failure, unspecified; I48.91 Unspecified atrial fibrillation; I25.10 Atherosclerotic heart disease of native coronary artery without angina pectoris; G47.30 Sleep apnea, unspecified; E78.00 Pure hypercholesterolemia, unspecified; E03.9 Hypothyroidism, unspecified

== ENCOUNTER 2017-08-24 22:09 | Observation (INO) | payer MEDICARE, OTHER ==
[2017-08-24 22:09] VITALS: BMI 46.4
[2017-08-24] MEDS ORDERED: Nitroglycerin 2% Ointment Foilpak UD TOP STA (23:24)
[2017-08-24] MEDS ORDERED: Nitroglycerin 2% Ointment Foilpak UD TOP ONE (23:31)
[2017-08-25] LABS: BASO % 0.3 % (0.0-2.0); EOS # 0.1 K/uL (0.0-0.7); EOS % 1.4 % (0.0-4.0); HEMOGLOBIN 10.2 g/dL (12.0-18.0); LYMPH # 1.4 K/uL (1.0-4.3); MEAN CELL VOLUME 81.4 fL (80.0-94.0); MEAN CORPUSCULAR HEMOGLOBIN 25.9 pg (27.0-31.0); MEAN CORPUSCULAR HGB CONC 31.8 g/dL (33.0-37.0); MEAN PLATELET VOLUME 8.6 fL (7.2-11.7); MONO # 0.5 K/uL (0.0-0.8); NEUT # 5.6 K/uL (1.8-7.0); NEUT % 74.3 % (50.0-75.0); RBC 3.92 Mil/uL (4.40-5.90); RED CELL DISTRIBUTION WIDTH 15.3 % (11.5-14.5); WHITE BLOOD COUNT 7.6 K/uL (4.8-10.8)
[2017-08-25 00:15] LABS: ALBUMIN 3.4 g/dL (3.5-5.0); ALT/SGPT 23 U/L (21-72); AST/SGOT 17 U/L (17-59); BLOOD UREA NITROGEN 24 mg/dL (9-20); CALCIUM 8.8 mg/dl (8.6-10.4); GFR AFRICAN-AMERICAN > 60; GFR NON-AFRICAN AMERICAN 58
[2017-08-25 00:27] LABS: B-TYPE NATRIURETIC PEPTIDE 760 pg/mL (0-900)
--- NOTE | 2017-08-25 00:32 | C.PDOC ---
Time Seen by Provider: 08/24/17 23:12 Chief Complaint (Nursing): Chest Pain History Per: Patient Onset/Duration Of Symptoms: Hrs (tonight) Current Symptoms Are (Timing): Better Severity: Moderate Quality: "Pain" Modifying Factors: Other Indicated Below Nitro Therapy Administered: 1, Per Own Supply, Partial Relief Additional History Per: Prior Records Past Medical History Reviewed: Historical Data, Nursing Documentation, Vital Signs Vital Signs: Last Vital Signs Temp 99.3 F 08/24/17 22:22 Pulse 83 08/24/17 23:43 Resp 16 08/24/17 23:43 BP 103/34 L 08/24/17 23:43 Pulse Ox 98 08/24/17 23:43 - Medical History PMH: Anemia, Anxiety, Atrial Fibrillation, Back Problems, CAD, Cardia Arrhythmia (AFIB), CHF, COPD, Diabetes, Deep Vein Thrombosis, Emphysema, Graves ' Disease, HTN, Hypercholesterolemia, Hypothyroidism, Peripheral Edema, Pneumonia, Sleep Apnea, TIA (2008) Surgical History: CABG (2008), Coronary Stent (3 Stents Prior to Quadruple Bypass), Pacemaker - [employer] Procedures ASSISTANCE WITH RESPIRATORY VENTILATION, 24-96 HRS, CPAP (10/15/15) INJECT/INFUSE NEC (10/09/12) Family History: States: Unknown Family Hx - Social History Hx Tobacco Use: Yes Hx Alcohol Use: No Hx Substance Use: No - Immunization History Hx Tetanus Toxoid Vaccination: No Hx Influenza Vaccination: Yes Hx Pneumococcal Vaccination: Yes Review Of Systems Except As Marked, All Systems Reviewed And Found Negative. Constitutional: Negative for: Fever, Weakness Cardiovascular: Positive for: Chest Pain, Edema Respiratory: Negative for: Hemoptysis Gastrointestinal: Negative for: Vomiting, Abdominal Pain Musculoskeletal: Negative for: Neck Pain Neurological: Negative for: Weakness, Numbness Physical Exam - Physical Exam Appears: No Acute Distress, Chronically Ill Skin: Warm Head: Atraumatic, Normacephalic Eye(s): bilateral: PERRL, EOMI Neck: Normal ROM, Supple Cardiovascular: Rhythm Regular Respiratory: No Accessory Muscle Use Gastrointestinal/Abdominal: Soft, No Tenderness Back: No CVA Tenderness Extremity: Normal ROM, Pedal Edema Neurological/Psych: Oriented x3, Normal Motor, Normal Sensation ED Course And Treatment - Laboratory Results Result Diagrams: 08/24/17 23:56 08/24/17 23:56 Lab Interpretation: No Changes Compared To Prior Results ECG: Interpreted By Me, Viewed By Me ECG Rhythm: AV Paced, Nonspecific Changes ECG Interpretation: No Changes From Prior Rate From EC O2 Sat by Pulse Oximetry: 98 Pulse Ox Interpretation: Normal - Radiology CXR: Interpreted by Me, Viewed By Me CXR Interpretation: Yes: No Acute Disease Progress - Interventions Interventions:: Observation, Oxygen - Medications Administered Oral: Aspirin - Data Reviewed Data Reviewed: Lab, Diagnostic imaging, EKG, Old records - Patient Status Patient status: Partially improved - Continuity of Care Discussed patient case with:: Patient, ED Nurse, PMD Disposition Discussed With : Ousmane Amor Comment: He accepte pt on his service. Doctor Will See Patient In The: Hospital Counseled Patient/Family Regarding: Studies Performed, Diagnosis - Disposition Disposition: HOSPITALIZED Disposition Time: 00:33 Condition: FAIR - Clinical Impression Clinical Impression: Chest pain
[2017-08-25] MEDS ORDERED: oxyCODONE 5 mg Immediate Release Tab PO STA (06:11)
[2017-08-25] MEDS ORDERED: Promethazine 6.25 MG/5 ML CUP PO PRN (06:12)
[2017-08-25] MEDS ORDERED: oxyCODONE 5 mg Immediate Release Tab ONE (06:29)
[2017-08-25 07:08] LABS: CK-MB 0.35 ng/mL (0.0-3.38)
[2017-08-25] MEDS ORDERED: Levothyroxine 100 MCG TAB PO SCH (10:00)
[2017-08-25] MEDS: oxyCODONE 30 mg Immediate Release Tab PO PRN ×4 (10:26→22:41)
[2017-08-25] MEDS ORDERED: oxyCODONE 30 mg Immediate Release Tab ONE (10:27)
--- NOTE | 2017-08-25 10:57 | RAD ---
PROCEDURE: CHEST RADIOGRAPH, 1 VIEW HISTORY: chest pain COMPARISON: 07/19/2017. FINDINGS: LUNGS: Clear. PLEURA: No pneumothorax or pleural fluid seen. CARDIOVASCULAR: Cardiomegaly. No evidence of acute, significant cardiovascular disease. Position/ configuration of pacemaker Satisfactory. OSSEOUS STRUCTURES: No significant abnormalities. VISUALIZED UPPER ABDOMEN: Normal. OTHER FINDINGS: None. IMPRESSION: No active disease. No acute/significant interval changes.
[2017-08-25 13:12] VITALS: RESP 20
[2017-08-25 14:38] LABS: CK-MB 0.48 ng/mL (0.0-3.38)
[2017-08-25] MEDS ORDERED: Digoxin 250 mcg (0.25 mg) Tab PO SCH (18:00)
[2017-08-25] MEDS ORDERED: Digoxin 125 mcg (0.125 mg) Tab PO SCH (18:00)
[2017-08-25 19:20] VITALS: PULSE 86
--- NOTE | 2017-08-25 22:10 | CP.PCM.HP ---
History of Present Illness - History of Present Illness History of Present Illness: CC: Chest pain HPI: pt is a 52 year old male well known to me with PMH of nemia, Anxiety, Atrial Fibrillation, Back Problems, CAD, Cardia Arrhythmia (AFIB), CHF, COPD, Diabetes, Deep Vein Thrombosis, Emphysema, Graves' Disease, HTN, Hypercholesterolemia, Hypothyroidism, Peripheral Edema, Pneumonia, Sleep Apnea, TIA (2008)s/pCABG (2008), Coronary Stent (3 Stents Prior to Quadruple Bypass), Pacemaker developed left substernal chest pain, last night, no fever, chills, not radiating to back, shoulder, denies any other complains, reposrts emotional stress Review of Systems - Review of Systems Systems not reviewed;Unavailable: Acuity of Condition - Constitutional Constitutional: Fatigue, Lethargy, Malaise - EENT Eyes: absent: As Per HPI, Blind Spots, Blurred Vision, Change in Vision, Decreased Night Vision, Diplopia, Discharge, Dry Eye, Exophthalmos, Floaters, Irritation, Itchy Eyes, Loss of Peripheral Vision, Pain, Photophobia, Requires Corrective Lenses, Sees Flashes, Spots in Vision, Tunnel Vision, Other Visual Disturbances, Loss of Vision, Other - Cardiovascular Cardiovascular: Chest Pain, Chest Pain at Rest, Dyspnea - Respiratory Respiratory: absent: As Per HPI, Cough, Dyspnea, Hemoptysis, Dyspnea on Exertion , Wheezing, Snoring, Stridor, Pain on Inspiration, Chest Congestion, Excessive Mucous Production, Change in Mucous Color, Pain with Coughing, Other Past Patient History - Infectious Disease Hx of Infectious Diseases: None - Past Medical History & Family History Past Medical History?: Yes - Past Social History Smoking Status: Light Smoker < 10 Cigarettes Daily - CARDIAC Hx Atrial Fibrillation: Yes Hx Cardia Arrhythmia: Yes (AFIB) Hx Congestive Heart Failure: Yes Hx Hypercholesterolemia: Yes Hx Hypertension: Yes Hx Pacemaker: Yes Hx Peripheral Edema: Yes - PULMONARY Hx Chronic Obstructive Pulmonary Disease (COPD): Yes Hx Emphysema: Yes Hx Pneumonia: Yes Hx Sleep Apnea: Yes - NEUROLOGICAL Hx Transient Ischemic Attacks (TIA): Yes (2008) - HEENT Hx HEENT Problems: No - RENAL Hx Chronic Kidney Disease: No - ENDOCRINE/METABOLIC Hx Hypothyroidism: Yes - HEMATOLOGICAL/ONCOLOGICAL Hx Anemia: Yes - INTEGUMENTARY Hx Dermatological Problems: No - MUSCULOSKELETAL/RHEUMATOLOGICAL Hx Falls: No - GASTROINTESTINAL Hx Gastrointestinal Disorders: No - GENITOURINARY/GYNECOLOGICAL Hx Genitourinary Disorders: No - PSYCHIATRIC Hx Anxiety: Yes Hx Substance Use: No - SURGICAL HISTORY Hx Coronary Artery Bypass Graft: Yes (2008) Hx Coronary Stent: Yes (3 Stents Prior to Quadruple Bypass) - ANESTHESIA Hx Anesthesia: Yes Hx Anesthesia Reactions: No Hx Malignant Hyperthermia: No Meds Home Medications: Home Medication List Medication Instructions Recorded Confirmed Type Promethazine [Phenergan Syrup] 6.25 mg PO Q6 PRN #8 oz 08/26/17 Rx Allergies/Adverse Reactions: Allergies Allergy/AdvReac Type Severity Reaction Status Date / Time No Known Drug Allergies Allergy n/a Verified 08/24/17 22:29 Physical Exam - Constitutional Appears: No Acute Distress - Head Exam Head Exam: ATRAUMATIC, NORMAL INSPECTION, NORMOCEPHALIC - Eye Exam Eye Exam: EOMI, Normal appearance, PERRL Pupil Exam: NORMAL ACCOMODATION, PERRL - Respiratory Exam Respiratory Exam: Clear to Auscultation Bilateral, NORMAL BREATHING PATTERN - Cardiovascular Exam Cardiovascular Exam: REGULAR RHYTHM Additional comments: AICD in place - GI/Abdominal Exam GI & Abdominal Exam: Normal Bowel Sounds, Soft. absent: Tenderness Results - Vital Signs Recent Vital Signs: Last Vital Signs Temp 97.7 F 08/25/17 11:15 Pulse 79 08/25/17 11:15 Resp 20 08/25/17 11:15 BP 123/76 08/25/17 19:18 Pulse Ox 100 08/25/17 11:15 - Labs Result Diagrams: 08/24/17 23:56 08/24/17 23:56 Labs: Laboratory Results - last 24 hr 08/24/17 08/24/17 08/24/17 23:56 23:56 23:56 WBC 7.6 RBC 3.92 L Hgb 10.2 L Hct 31.9 L MCV 81.4 MCH 25.9 L MCHC 31.8 L RDW 15.3 H Plt Count 187 MPV 8.6 Neut % (Auto) 74.3 Lymph % (Auto) 18.0 L [place] % (Auto) 6.0 Eos % (Auto) 1.4 Baso % (Auto) 0.3 Neut # (Auto) 5.6 Lymph # (Auto) 1.4 [place] # (Auto) 0.5 Eos # (Auto) 0.1 Baso # (Auto) 0.0 Sodium 139 Potassium 4.1 Chloride 101 Carbon Dioxide 28 Anion Gap 14 BUN 24 H Creatinine 1.3 Est GFR ( Amer) > 60 Est GFR (Non-Af Amer) 58 POC Glucose (mg/dL) Random Glucose 286 H Calcium 8.8 Total Bilirubin 0.3 AST 17 ALT 23 Alkaline Phosphatase 127 H Total Creatine Kinase CK-MB (Mass) Troponin I < 0.0120 NT-Pro-B Natriuret Pep 760 Total Protein 7.0 Albumin 3.4 L Globulin 3.6 Albumin/Globulin Ratio 1.0 Digoxin 0.4 L 08/25/17 08/25/17 08/25/17 06:37 08:36 13:54 WBC RBC Hgb Hct MCV MCH MCHC RDW Plt Count MPV Neut % (Auto) Lymph % (Auto) [place] % (Auto) Eos % (Auto) Baso % (Auto) Neut # (Auto) Lymph # (Auto) [place] # (Auto) Eos # (Auto) Baso # (Auto) Sodium Potassium Chloride Carbon Dioxide Anion Gap BUN Creatinine Est GFR ( Amer) Est GFR (Non-Af Amer) POC Glucose (mg/dL) 236 H Random Glucose Calcium Total Bilirubin AST ALT Alkaline Phosphatase Total Creatine Kinase 66 65 CK-MB (Mass) 0.35 0.48 Troponin I < 0.0120 < 0.0120 NT-Pro-B Natriuret Pep Total Protein Albumin Globulin Albumin/Globulin Ratio Digoxin 08/25/17 21:01 WBC RBC Hgb Hct MCV MCH MCHC RDW Plt Count MPV Neut % (Auto) Lymph % (Auto) [place] % (Auto) Eos % (Auto) Baso % (Auto) Neut # (Auto) Lymph # (Auto) [place] # (Auto) Eos # (Auto) Baso # (Auto) Sodium Potassium Chloride Carbon Dioxide Anion Gap BUN Creatinine Est GFR ( Amer) Est GFR (Non-Af Amer) POC Glucose (mg/dL) 401 H* Random Glucose Calcium Total Bilirubin AST ALT Alkaline Phosphatase Total Creatine Kinase CK-MB (Mass) Troponin I NT-Pro-B Natriuret Pep Total Protein Albumin Globulin Albumin/Globulin Ratio Digoxin Assessment & Plan (1) Low back pain Status: Acute (2) Cardiomyopathy Status: Active (3) Hypertension screening Status: Active (4) Hypertensive heart disease Status: Active (5) Hypothyroidism Status: Active (6) Stented coronary artery Status: Active (7) AICD (automatic cardioverter/defibrillator) present Status: Acute
[2017-08-26] MEDS: oxyCODONE 30 mg Immediate Release Tab PO PRN ×3 (02:59→11:05)
[2017-08-26] MEDS ORDERED: Levothyroxine 100 MCG TAB PO SCH (06:30)
[2017-08-26 07:45] VITALS: BP 167/96; TEMP 98.9; O2SAT 100
--- NOTE | 2017-08-26 10:58 | CP.PCM.PN ---
Subjective - Date & Time of Evaluation Date of Evaluation: 08/26/17 Time of Evaluation: 10:56 - Subjective Subjective: PT CLEARED FOR D/C HOME TODAY PER DR. BLANDON. PT DENIES SOB, CHEST PAIN. HAS ALREADY CALLED HIS RIDE AND [facility] IS HERE TO PICK HIM UP. REFILL RX GIVEN FOR PHENERGAN. PT STATES HE HAS ALL OTHER MEDS. DISCUSSED DM DIET AND LIFESTYLE MODIFICATIONS CONSIDERING HIS BS THIS MORNING. ACCUCHECK AND INSULIN COVERAGE PRIOR TO D/C. PT VERBALIZES UNDERSTANDING OF ALL D/C INSTRUCTIONS. NO FURTHER ORDERS. Objective - Vital Signs/Intake and Output Vital Signs (last 24 hours): Temp Pulse Resp BP Pulse Ox 98.9 F 91 H 20 167/96 H 100 08/26/17 07:00 08/26/17 07:00 08/26/17 07:00 08/26/17 09:41 08/26/17 07:00 - Medications Medications: Current Medications Apixaban (Eliquis) 5 mg PO Q12 [facility] Last Admin: 08/26/17 09:41 Dose: 5 mg Carvedilol (Coreg) 25 mg PO BID [facility] Last Admin: 08/26/17 09:41 Dose: 25 mg Clopidogrel Bisulfate (Plavix) 75 mg PO DAILY [facility] Last Admin: 08/26/17 09:41 Dose: 75 mg Digoxin (Lanoxin) 0.25 mg PO DAILY@1800 [facility] Last Admin: 08/25/17 19:18 Dose: 0.25 mg Furosemide (Lasix) 40 mg PO BID [facility] Last Admin: 08/26/17 09:41 Dose: 40 mg Hydroxychloroquine Sulfate (Plaquenil) 200 mg PO BID [facility] PRN Reason: Protocol Last Admin: 08/26/17 09:41 Dose: 200 mg Insulin Aspart (Novolog) 0 unit SC ACHS [facility] PRN Reason: Protocol Levothyroxine Sodium (Synthroid) 100 mcg PO 0630 [facility] Last Admin: 08/26/17 06:04 Dose: 100 mcg Lisinopril (Zestril) 5 mg PO DAILY [facility] Last Admin: 08/26/17 09:41 Dose: 5 mg Metformin HCl (Glucophage) 500 mg PO BIDCC [facility] Last Admin: 08/26/17 08:15 Dose: Not Given Nitroglycerin (Nitrostat Sl Tab) 0.4 mg SL Q5MIN PRN PRN Reason: chest pain Oxycodone HCl (Oxycodone Immediate Release Tab) 30 mg PO Q4H PRN PRN Reason: Pain, Mild (1-3) Last Admin: 08/26/17 07:00 Dose: 30 mg Promethazine HCl (Phenergan Syrup) 6.25 mg PO Q6 PRN PRN Reason: Cough Rosuvastatin Calcium (Crestor) 40 mg PO HS [facility] Last Admin: 08/25/17 22:41 Dose: 40 mg Sitagliptin Phosphate (Januvia) 50 mg PO DAILY [facility] Last Admin: 08/26/17 09:41 Dose: 50 mg - Labs Labs: 08/24/17 23:56 08/24/17 23:56
[2017-08-26] MEDS ORDERED: (Novolog) Insulin Aspart, Recombinant 100 u/ml 10 ml vial SC SCH (11:30)
[2017-08-26 11:41] VITALS: PULSE 82
--- NOTE | 2017-08-26 16:11 | CP.PCM.DIS ---
Provider - Provider Date of Admission: 08/25/17 00:33 Attending physician: Ousmane Amor MD Time Spent in preparation of Discharge (in minutes): 45 Diagnosis - Discharge Diagnosis (1) Low back pain Status: Acute (2) Cardiomyopathy Status: Active (3) Hypertension screening Status: Active (4) Hypertensive heart disease Status: Active (5) Hypothyroidism Status: Active (6) Stented coronary artery Status: Active (7) AICD (automatic cardioverter/defibrillator) present Status: Acute Hospital Course - Lab Results Lab Results: Most Recent Lab Values WBC 7.6 K/uL (4.8-10.8) 08/24/17 23:56 RBC 3.92 Mil/uL (4.40-5.90) L 08/24/17 23:56 Hgb 10.2 g/dL (12.0-18.0) L 08/24/17 23:56 Hct 31.9 % (35.0-51.0) L 08/24/17 23:56 MCV 81.4 fL (80.0-94.0) 08/24/17 23:56 MCH 25.9 pg (27.0-31.0) L 08/24/17 23:56 MCHC 31.8 g/dL (33.0-37.0) L 08/24/17 23:56 RDW 15.3 % (11.5-14.5) H 08/24/17 23:56 Plt Count 187 K/uL (130-400) 08/24/17 23:56 MPV 8.6 fL (7.2-11.7) 08/24/17 23:56 Neut % (Auto) 74.3 % (50.0-75.0) 08/24/17 23:56 Lymph % (Auto) 18.0 % (20.0-40.0) L 08/24/17 23:56 [place] % (Auto) 6.0 % (0.0-10.0) 08/24/17 23:56 Eos % (Auto) 1.4 % (0.0-4.0) 08/24/17 23:56 Baso % (Auto) 0.3 % (0.0-2.0) 08/24/17 23:56 Neut # (Auto) 5.6 K/uL (1.8-7.0) 08/24/17 23:56 Lymph # (Auto) 1.4 K/uL (1.0-4.3) 08/24/17 23:56 [place] # (Auto) 0.5 K/uL (0.0-0.8) 08/24/17 23:56 Eos # (Auto) 0.1 K/uL (0.0-0.7) 08/24/17 23:56 Baso # (Auto) 0.0 K/uL (0.0-0.2) 08/24/17 23:56 Sodium 139 mmol/L (132-148) 08/24/17 23:56 Potassium 4.1 mmol/L (3.6-5.2) 08/24/17 23:56 Chloride 101 mmol/L (98-107) 08/24/17 23:56 Carbon Dioxide 28 mmol/L (22-30) 08/24/17 23:56 Anion Gap 14 (10-20) 08/24/17 23:56 BUN 24 mg/dL (9-20) H 08/24/17 23:56 Creatinine 1.3 mg/dL (0.8-1.5) 08/24/17 23:56 Est GFR ( Amer) > 60 08/24/17 23:56 Est GFR (Non-Af Amer) 58 08/24/17 23:56 POC Glucose (mg/dL) 249 mg/dL (65-110) H 08/26/17 11:11 Random Glucose 286 mg/dL (75-110) H 08/24/17 23:56 Calcium 8.8 mg/dl (8.6-10.4) 08/24/17 23:56 Total Bilirubin 0.3 mg/dL (0.2-1.3) 08/24/17 23:56 AST 17 U/L (17-59) 08/24/17 23:56 ALT 23 U/L (21-72) 08/24/17 23:56 Alkaline Phosphatase 127 U/L (38-126) H 08/24/17 23:56 Total Creatine Kinase 65 U/L (55-170) 08/25/17 13:54 CK-MB (Mass) 0.48 ng/mL (0.0-3.38) 08/25/17 13:54 Troponin I < 0.0120 ng/mL (0.00-0.120) 08/25/17 13:54 NT-Pro-B Natriuret Pep 760 pg/mL (0-900) 08/24/17 23:56 Total Protein 7.0 g/dL (6.3-8.3) 08/24/17 23:56 Albumin 3.4 g/dL (3.5-5.0) L 08/24/17 23:56 Globulin 3.6 gm/dL (2.2-3.9) 08/24/17 23:56 Albumin/Globulin Ratio 1.0 (1.0-2.1) 08/24/17 23:56 Digoxin 0.4 ng/mL (0.8-2.0) L 08/24/17 23:56 - Hospital Course Hospital Course: Pt seen and examined, cardiac enzymes x 3 neg, chest pain resolved, no sob.PT CLEARED FOR D/C HOME TODAY. PT DENIES SOB, CHEST PAIN. HAS ALREADY CALLED HIS RIDE AND [facility] IS HERE TO PICK HIM UP. REFILL RX GIVEN FOR PHENERGAN. PT STATES HE HAS ALL OTHER MEDS. DISCUSSED DM DIET AND LIFESTYLE MODIFICATIONS CONSIDERING HIS BS THIS MORNING. ACCUCHECK AND INSULIN COVERAGE PRIOR TO D/C. PT VERBALIZES UNDERSTANDING OF ALL D/C INSTRUCTIONS. NO FURTHER ORDERS. Discharge Exam - Head Exam Head Exam: ATRAUMATIC, NORMAL INSPECTION, NORMOCEPHALIC Discharge Plan - Discharge Medications Prescriptions: Promethazine [Phenergan Syrup] 6.25 mg PO Q6 PRN #8 oz PRN Reason: Cough - Follow Up Plan Condition: FAIR Disposition: HOME/ ROUTINE Instructions: Heart Failure, Adult, Chest Pain, Promethazine Additional Instructions: -FOLLOW UP WITH DR. AMOR IN THE OFFICE WITHIN 1 WEEK---CALL THE OFFICE FOR AN APPOINTMENT TIME. -FOLLOW UP WITH YOUR [employer] [facility] TENDER IN THE OFFICE WITHIN 1-2 WEEKS---CALL THE OFFICE FOR AN APPOINTMENT TIME. -CONTINUE ALL MEDICATIONS USUAL. -FOR FURTHER QUESTIONS OR CONCERNS, CONTACT DR. AMOR. Referrals: Ousmane Amor MD [Staff Provider] -
--- NOTE | 2017-08-26 22:38 | CARD ---
APPROVED REPORT EKG Measurement Heart [id number] <Conclusion> Atrial-sensed ventricular-paced rhythm Abnormal ECG
== END 2017-08-26 11:30 | disposition home or self-care (01) ==
LOC: C.ER 22:09 → C.9E 08-25 00:33 → C.5S 08-25 10:34
PROVIDERS: ADMIT Internal Medicine; ATTEND Internal Medicine
DX: M54.5 Low back pain (principal); I25.10 Atherosclerotic heart disease of native coronary artery without angina pectoris; R07.9 Chest pain, unspecified; E03.9 Hypothyroidism, unspecified; E11.9 Type 2 diabetes mellitus without complications; E05.00 Thyrotoxicosis with diffuse goiter without thyrotoxic crisis or storm; J18.9 Pneumonia, unspecified organism; E78.00 Pure hypercholesterolemia, unspecified; I11.0 Hypertensive heart disease with heart failure; I50.9 Heart failure, unspecified; I42.9 Cardiomyopathy, unspecified; Z95.5 Presence of coronary angioplasty implant and graft; Z95.810 Presence of automatic (implantable) cardiac defibrillator; Z86.73 Personal history of transient ischemic attack (TIA), and cerebral infarction without residual deficits; Z87.01 Personal history of pneumonia (recurrent); Z87.891 Personal history of nicotine dependence; Z95.1 Presence of aortocoronary bypass graft
CPT/HCPCS: 71045; 80053; 80162; 82948; 83880; 84484; 85025; 93005; 99285; G0378

== ENCOUNTER 2017-09-19 18:41 | Observation (INO) | payer MEDICARE, OTHER ==
--- NOTE | 2017-09-19 19:07 | C.PDOC ---
History Of Present Illness The patient presents to the ED for evaluation of chest pain which began around 2 -3 hours prior to arrival. Patient has chronic lower extremity edema, but states it has gotten worse. Patient denies fever, chills, nausea, vomiting. Time Seen by Provider: 09/19/17 19:06 Chief Complaint (Nursing): Chest Pain History Per: Patient History/Exam Limitations: no limitations Onset/Duration Of Symptoms: Hrs (2-3) Current Symptoms Are (Timing): Still Present Severity: Mild Pain Scale Rating Of: 4 Quality: "Pain" Associated Symptoms: denies: Nausea Modifying Factors: None Exacerbating Factors: None Alleviating Factors: None Recent travel outside of the [place]: No Additional History Per: Patient Past Medical History Reviewed: Historical Data, Nursing Documentation, Vital Signs Vital Signs: Last Vital Signs Temp 97.5 F L 09/19/17 21:10 Pulse 76 09/19/17 21:10 Resp 20 09/19/17 21:10 BP 132/84 09/19/17 21:10 Pulse Ox 98 09/19/17 21:10 - Medical History PMH: Anemia, Anxiety, Atrial Fibrillation, Back Problems, CAD, Cardia Arrhythmia (AFIB), CHF, COPD, Diabetes, Deep Vein Thrombosis, Emphysema, Graves ' Disease, HTN, Hypercholesterolemia, Hypothyroidism, Peripheral Edema, Pneumonia, Sleep Apnea, TIA (2008) Denies: Chronic Kidney Disease Surgical History: CABG (2008), Coronary Stent (3 Stents Prior to Quadruple Bypass), Pacemaker - [employer] Procedures ASSISTANCE WITH RESPIRATORY VENTILATION, 24-96 HRS, CPAP (10/15/15) INJECT/INFUSE NEC (10/09/12) Family History: States: Unknown Family Hx - Social History Hx Tobacco Use: Yes Hx Alcohol Use: No Hx Substance Use: No - Immunization History Hx Tetanus Toxoid Vaccination: No Hx Influenza Vaccination: Yes Hx Pneumococcal Vaccination: Yes Review Of Systems Constitutional: Negative for: Fever, Chills Cardiovascular: Positive for: Chest Pain. Negative for: Palpitations Respiratory: Negative for: Cough, Shortness of Breath Gastrointestinal: Negative for: Nausea, Vomiting Musculoskeletal: Negative for: Arm Pain Skin: Negative for: Rash, Lesions, Jaundice, Bruising Neurological: Negative for: Weakness, Numbness, Incoordination, Confusion, Headache, Dizziness Psych: Negative for: Anxiety Physical Exam - Physical Exam Appears: Non-toxic, No Acute Distress Skin: Warm, Dry Head: Normacephalic Eye(s): bilateral: Normal Inspection Oral Mucosa: Moist Neck: Supple Chest: Symmetrical, No Deformity, No Tenderness, Other (AICD to left chest wall ) Cardiovascular: Rhythm Regular, No Murmur Respiratory: Rales (scattered, at bilateral bases ), No Rhonchi, No Wheezing Gastrointestinal/Abdominal: Soft, No Tenderness, No Guarding, No Rebound, Other (morbidly obese ) Extremity: Normal ROM, Pedal Edema, Capillary Refill (less than 2 seconds ) Pulses: Left Dorsalis Pedis: Normal, Right Dorsalis Pedis: Normal Neurological/Psych: Oriented x3 Gait: Unable To Assess ED Course And Treatment - Laboratory Results Result Diagrams: 09/19/17 19:31 09/19/17 19:31 ECG: Interpreted By Me, Viewed By Me ECG Rhythm: Sinus Rhythm (84), Nonspecific Changes (atrial sensed, ventricular paced) O2 Sat by Pulse Oximetry: 95 (on RA) Pulse Ox Interpretation: Normal - Radiology CXR: Interpreted by Me, Viewed By Me CXR Interpretation: Yes: Cardiomegaly, Other (pacer in left cw, unchanged from ). No: Infiltrates, Fracture Progress Note: Bloodwork, CXR, and EKG ordered. Aspirin PO given. Disposition Discussed With : Ousmane Amor Comment: accepted the pt on his service and took over the care at 8PM Doctor Will See Patient In The: Hospital Counseled Patient/Family Regarding: Studies Performed, Diagnosis - Disposition Disposition: HOSPITALIZED Disposition Time: 19:06 Condition: FAIR - POA Present On Arrival: Poor Glycemic Control - Clinical Impression Clinical Impression: Morbid obesity with BMI of 45.0-49.9, adult, Chest pain, Congestive heart failure, Sleep apnea - Scribe Statement The provider has reviewed the documentation as recorded by the Scribe (Leeann Dyer) Provider Attestation: All medical record entries made by the Scribe were at my direction and personally dictated by me. I have reviewed the chart and agree that the record accurately reflects my personal performance of the history, physical exam, medical decision making, and the department course for this patient. I have also personally directed, reviewed, and agree with the discharge instructions and disposition. Decision To Admit - Pt Status Changed To: Hospital Disposition Of: Observation - . Bed Request Type: Telemetry Patient Diagnosis: Morbid obesity with BMI of 45.0-49.9, adult, Chest pain, Congestive heart failure, Sleep apnea
[2017-09-19] MEDS ORDERED: Aspirin 325 mg EC Tablets PO STA (19:08)
[2017-09-19 19:34] LABS: BASO # 0.1 K/uL (0.0-0.2); BASO % 0.9 % (0.0-2.0); EOS # 0.1 K/uL (0.0-0.7); EOS % 0.7 % (0.0-4.0); HEMOGLOBIN 10.3 g/dL (12.0-18.0); LYMPH # 0.7 K/uL (1.0-4.3); MEAN CELL VOLUME 82.7 fL (80.0-94.0); MEAN CORPUSCULAR HEMOGLOBIN 25.8 pg (27.0-31.0); MEAN CORPUSCULAR HGB CONC 31.2 g/dL (33.0-37.0); MEAN PLATELET VOLUME 8.1 fL (7.2-11.7); MONO # 0.3 K/uL (0.0-0.8); MONO % 4.1 % (0.0-10.0); NEUT # 6.3 K/uL (1.8-7.0); NEUT % 85.3 % (50.0-75.0); NRBC % 0.1 % (0.0-2.0); PLATELET COUNT 169 K/uL (130-400); RBC 4.01 Mil/uL (4.40-5.90); RED CELL DISTRIBUTION WIDTH 16.3 % (11.5-14.5); WHITE BLOOD COUNT 7.3 K/uL (4.8-10.8)
[2017-09-19 19:42] LABS: INR 1.1; PROTHROMBIN TIME 12.1 SECONDS (9.7-12.2)
[2017-09-19 19:50] LABS: ALBUMIN 3.5 g/dL (3.5-5.0); ALT/SGPT 34 U/L (21-72); AST/SGOT 28 U/L (17-59); BLOOD UREA NITROGEN 28 mg/dL (9-20); GFR AFRICAN-AMERICAN > 60; GFR NON-AFRICAN AMERICAN 58
[2017-09-19 19:58] LABS: B-TYPE NATRIURETIC PEPTIDE 916 pg/mL (0-900); EOSINOPHIL 1 % (0-4); LYMPHOCYTE 9 % (20-40); MONOCYTE 5 % (0-10); NEUTROPHIL 85 % (50-75); PLATELET ESTIMATE NORMAL (NORMAL); TOTAL CELLS COUNTED 100
[2017-09-19 19:59] LABS: ANISOCYTOSIS SLIGHT; HYPOCHROMIC SLIGHT; LARGE PLATELETS PRESENT; OVALOCYTES SLIGHT; POIKILOCYTOSIS SLIGHT
[2017-09-19 21:11] VITALS: RESP 20
[2017-09-19] MEDS: (Novolog) Insulin Aspart, Recombinant 100 u/ml 10 ml vial SC SCH (21:37)
[2017-09-19] MEDS: oxyCODONE 30 mg Immediate Release Tab PO PRN (21:41)
[2017-09-19 22:00] VITALS: BMI 48.3
[2017-09-20] MEDS: oxyCODONE 30 mg Immediate Release Tab PO PRN ×6 (01:40→22:25)
[2017-09-20 02:12] LABS: CK-MB 0.71 ng/mL (0.0-3.38)
[2017-09-20] MEDS: Levothyroxine 100 MCG TAB PO SCH (06:10)
[2017-09-20] MEDS: (Novolog) Insulin Aspart, Recombinant 100 u/ml 10 ml vial SC SCH ×4 (08:40→21:44)
--- NOTE | 2017-09-20 09:34 | RAD ---
Date of service: 09/19/2017 PROCEDURE: CHEST RADIOGRAPH, 1 VIEW HISTORY: chest pain COMPARISON: Portable chest 08/25/2017. FINDINGS: LUNGS: No active air space disease. Diminished inspiratory volume noted. Generator from AICD/pacemaker obscures the lateral left base however. PLEURA: No pneumothorax or pleural fluid seen. CARDIOVASCULAR: Stable cardiomediastinal silhouette with AICD/ pacemaker again identified in situ. OSSEOUS STRUCTURES: Stable appearing post sternotomy. VISUALIZED UPPER ABDOMEN: Normal. OTHER FINDINGS: None. IMPRESSION: Diminished inspiratory effort however no definite infiltrate pleural effusion or pneumothorax is appreciable. Due to angle of capture, AICD generator obscures left heart border/left base laterally.
--- NOTE | 2017-09-20 10:44 | CP.PCM.HP ---
History of Present Illness - History of Present Illness History of Present Illness: CC: chest pain History Of Present Illness The patient is a middle aged male with h/o CAD s/p CABG, HTn, [place], Hypothyroidism, Hyperlipidemia, presents to the ED for evaluation of chest pain which began around 2-3 hours prior to arrival, substernal in nature radiating to left shoulder. Patient has chronic lower extremity edema, but states it has gotten worse. Pt also has nasal congestion.Patient denies fever, chills, nausea , vomiting. Present on Admission - Present on Admission Any Indicators Present on Admission: Yes Review of Systems - Review of Systems Systems not reviewed;Unavailable: Acuity of Condition - Constitutional Constitutional: Fatigue, Lethargy - EENT Eyes: absent: As Per HPI, Blind Spots, Blurred Vision, Change in Vision, Decreased Night Vision, Diplopia, Discharge, Dry Eye, Exophthalmos, Floaters, Irritation, Itchy Eyes, Loss of Peripheral Vision, Pain, Photophobia, Requires Corrective Lenses, Sees Flashes, Spots in Vision, Tunnel Vision, Other Visual Disturbances, Loss of Vision, Other Ears: absent: As Per HPI, Decreased Hearing, Ear Discharge, Ear Pain, Tinnitus, Abnormal Hearing, Disequilibrium, Dizziness, Other Nose/Mouth/Throat: Nasal Congestion. absent: As Per HPI, Epistaxis, Nasal Discharge, Nasal Obstruction, Nasal Trauma, Nose Pain, Post Nasal Drip, Sinus Pain, Sinus Pressure, Bleeding Gums, Change in Voice, Dental Pain, Dry Mouth, Dysphagia, Halitosis, Hoarsness, Lip Swelling, Mouth Lesions, Mouth Pain, Odynophagia, Sore Throat, Throat Swelling, Tongue Swelling, Facial Pain, Neck Pain, Neck Mass, Other - Cardiovascular Cardiovascular: Chest Pain, Chest Pain at Rest, Diaphoresis. absent: As Per HPI , Acrocyanosis, Chest Pain with Activity, Claudication, Dyspnea, Dyspnea on Exertion, Edema, Irregular Heart Rhythm, Pain Radiating to Arm/Neck/Jaw, Leg Edema, Leg Ulcers, Lightheadedness, Orthopnea, Palpitations, Paroxysmal Nocturnal Dyspnea, Pedal Edema, Radiating Pain, Rapid Heart Rate, Slow Heart Rate, Syncope, Other - Respiratory Respiratory: Cough - Gastrointestinal Gastrointestinal: absent: As Per HPI, Abdominal Pain, Belching, Bloating, Change in Bowel Habits, Change in Stool Character, Coffee Ground Emesis, Constipation, Cramping, Diarrhea, Dyspepsia, Dysphagia, Early Satiety, Excessive Flatus, Fecal Incontinence, Heartburn, Hematemesis, Hematochezia, Loose Stools, Melena, Nausea, Odynophagia, Temesmus, Vomiting, Other - Genitourinary Genitourinary: absent: As Per HPI, Change in Urinary Stream, Difficulty Urinating, Dysuria, Flank Pain, Hematuria, Pyuria, Nocturia, Urinary Incontinence, Urinary Frequency, Urinary Hesitance, Urinary Urgency, Voiding Freq/Small Amts, Freq UTI, Hx Renal/Bladder Calculi, Hx /Renal Surgery, Bladder Distension, Other - Musculoskeletal Musculoskeletal: Back Pain, Myalgias, Neck Pain - Integumentary Integumentary: absent: As Per HPI, Acne, Alopecia, Bleeding Lesions, Change in Hair, Change in Nails, Change in Pigmentation, Changing Lesions, Dry Skin, Erythema, Furuncle, Hirsutism, Lesions, New Lesions, Non-Healing Lesions, Photosensitivity, Pruritus, Rash, Skin Pain, Skin Ulcer, Sores, Striae, Swelling , Unusual Bruising, Wounds, Jaundice, Other - Neurological Neurological: absent: As Per HPI, Abnormal Gait, Abnormal Hearing, Abnormal Movements, Abnormal Speech, Behavioral Changes, Burning Sensations, Confusion, Convulsions, Disequilibrium, Dizziness, Numbness, Focal Weakness, Frequent Falls , Headaches, Lack of Coordination, Loss of Vision, Memory Loss, Paresthesias, Radicular Pain, Restless Legs, Sensory Deficit, Syncope, Tingling, Tremor, Vertigo, Weakness, Other Visual Disturbances, Other Past Patient History - Infectious Disease Hx of Infectious Diseases: None - Past Medical History & Family History Past Medical History?: Yes - Past Social History Smoking Status: Light Smoker < 10 Cigarettes Daily - CARDIAC Hx Atrial Fibrillation: Yes Hx Cardia Arrhythmia: Yes (AFIB) Hx Congestive Heart Failure: Yes Hx Hypercholesterolemia: Yes Hx Hypertension: Yes Hx Pacemaker: Yes Hx Peripheral Edema: Yes - PULMONARY Hx Chronic Obstructive Pulmonary Disease (COPD): Yes Hx Emphysema: Yes Hx Pneumonia: Yes Hx Sleep Apnea: Yes - NEUROLOGICAL Hx Transient Ischemic Attacks (TIA): Yes (2008) - HEENT Hx HEENT Problems: No - RENAL Hx Chronic Kidney Disease: No - ENDOCRINE/METABOLIC Hx Hypothyroidism: Yes - HEMATOLOGICAL/ONCOLOGICAL Hx Anemia: Yes - INTEGUMENTARY Hx Dermatological Problems: No - MUSCULOSKELETAL/RHEUMATOLOGICAL Hx Falls: No - GASTROINTESTINAL Hx Gastrointestinal Disorders: No - GENITOURINARY/GYNECOLOGICAL Hx Genitourinary Disorders: No - PSYCHIATRIC Hx Anxiety: Yes Hx Substance Use: No - SURGICAL HISTORY Hx Coronary Artery Bypass Graft: Yes (2008) Hx Coronary Stent: Yes (3 Stents Prior to Quadruple Bypass) - ANESTHESIA Hx Anesthesia: Yes Hx Anesthesia Reactions: No Hx Malignant Hyperthermia: No Meds Home Medications: Home Medication List Medication Instructions Recorded Confirmed Type Atorvastatin [Lipitor] 80 mg PO DAILY 30 Days tab 09/21/17 Rx Promethazine [Phenergan Syrup] 6.25 mg PO Q6 PRN #8 oz 09/21/17 Rx Allergies/Adverse Reactions: Allergies Allergy/AdvReac Type Severity Reaction Status Date / Time No Known Drug Allergies Allergy n/a Verified 09/19/17 18:47 Physical Exam - Constitutional Appears: No Acute Distress - ENT Exam ENT Exam: Mucous Membranes Moist, Normal Exam - Neck Exam Neck exam: Positive for: Normal Inspection - Cardiovascular Exam Cardiovascular Exam: REGULAR RHYTHM - GI/Abdominal Exam GI & Abdominal Exam: Normal Bowel Sounds, Soft. absent: Tenderness - Rectal Exam Rectal Exam: Deferred Results - Vital Signs Recent Vital Signs: Last Vital Signs Temp 97.5 F L 09/20/17 07:00 Pulse 69 09/20/17 07:00 Resp 20 09/20/17 07:00 BP 121/75 09/20/17 10:36 Pulse Ox 96 09/20/17 07:00 - Labs Result Diagrams: 09/21/17 11:15 09/21/17 11:15 Labs: Laboratory Results - last 24 hr 09/19/17 09/19/17 09/19/17 19:31 19:31 19:31 WBC 7.3 RBC 4.01 L Hgb 10.3 L Hct 33.2 L MCV 82.7 MCH 25.8 L MCHC 31.2 L RDW 16.3 H Plt Count 169 MPV 8.1 Neut % (Auto) 85.3 H Lymph % (Auto) 9.0 L [place] % (Auto) 4.1 Eos % (Auto) 0.7 Baso % (Auto) 0.9 Neut # (Auto) 6.3 Lymph # (Auto) 0.7 L [place] # (Auto) 0.3 Eos # (Auto) 0.1 Baso # (Auto) 0.1 Neutrophils % (Manual) 85 H Lymphocytes % (Manual) 9 L Monocytes % (Manual) 5 Eosinophils % (Manual) 1 Platelet Estimate Normal Large Platelets Present Hypochromasia (manual) Slight Poikilocytosis (manual Slight Anisocytosis (manual) Slight Ovalocytes Slight PT 12.1 INR 1.1 APTT 30 Sodium 138 Potassium 5.1 Chloride 103 Carbon Dioxide 26 Anion Gap 15 BUN 28 H Creatinine 1.3 Est GFR ( Amer) > 60 Est GFR (Non-Af Amer) 58 Random Glucose 426 H* D Calcium 9.0 Total Bilirubin 0.2 AST 28 ALT 34 Alkaline Phosphatase 168 H D Total Creatine Kinase CK-MB (Mass) Troponin I < 0.0120 NT-Pro-B Natriuret Pep 916 H Total Protein 6.9 Albumin 3.5 Globulin 3.4 Albumin/Globulin Ratio 1.0 09/20/17 01:43 WBC RBC Hgb Hct MCV MCH MCHC RDW Plt Count MPV Neut % (Auto) Lymph % (Auto) [place] % (Auto) Eos % (Auto) Baso % (Auto) Neut # (Auto) Lymph # (Auto) [place] # (Auto) Eos # (Auto) Baso # (Auto) Neutrophils % (Manual) Lymphocytes % (Manual) Monocytes % (Manual) Eosinophils % (Manual) Platelet Estimate Large Platelets Hypochromasia (manual) Poikilocytosis (manual Anisocytosis (manual) Ovalocytes PT INR APTT Sodium Potassium Chloride Carbon Dioxide Anion Gap BUN Creatinine Est GFR ( Amer) Est GFR (Non-Af Amer) Random Glucose Calcium Total Bilirubin AST ALT Alkaline Phosphatase Total Creatine Kinase 84 CK-MB (Mass) 0.71 Troponin I < 0.0120 NT-Pro-B Natriuret Pep Total Protein Albumin Globulin Albumin/Globulin Ratio Assessment & Plan (1) Hypertensive heart disease Status: Active (2) Hypothyroidism Status: Active (3) AICD (automatic cardioverter/defibrillator) present Status: Acute (4) Chest pain Assessment and Plan: rule out [place] EKG Cardsiac enzymes x 3 Status: Acute (5) Diabetes mellitus Status: Acute
[2017-09-20 17:13] VITALS: PULSE 61
[2017-09-20] MEDS ORDERED: Digoxin 125 mcg (0.125 mg) Tab PO SCH (18:00)
[2017-09-21] MEDS: oxyCODONE 30 mg Immediate Release Tab PO PRN ×3 (02:34→10:34)
[2017-09-21] MEDS: Levothyroxine 100 MCG TAB PO SCH (06:28)
[2017-09-21 07:39] VITALS: PULSE 60
[2017-09-21 07:42] VITALS: TEMP 98.3; O2SAT 100
[2017-09-21] MEDS: (Novolog) Insulin Aspart, Recombinant 100 u/ml 10 ml vial SC SCH ×2 (08:29→11:40)
[2017-09-21 10:36] VITALS: BP 147/82
[2017-09-21 11:28] LABS: BASO # 0.1 K/uL (0.0-0.2); BASO % 0.9 % (0.0-2.0); EOS % 0.5 % (0.0-4.0); HEMOGLOBIN 11.3 g/dL (12.0-18.0); LYMPH # 1.1 K/uL (1.0-4.3); LYMPH % 11.8 % (20.0-40.0); MEAN CORPUSCULAR HEMOGLOBIN 26.4 pg (27.0-31.0); MEAN CORPUSCULAR HGB CONC 32.5 g/dL (33.0-37.0); MEAN PLATELET VOLUME 8.7 fL (7.2-11.7); MONO # 0.4 K/uL (0.0-0.8); NEUT # 7.7 K/uL (1.8-7.0); NEUT % 82.8 % (50.0-75.0); RBC 4.28 Mil/uL (4.40-5.90); RED CELL DISTRIBUTION WIDTH 15.7 % (11.5-14.5); WHITE BLOOD COUNT 9.3 K/uL (4.8-10.8)
[2017-09-21] MEDS ORDERED: (Novolog) Insulin Aspart, Recombinant 100 u/ml 10 ml vial SC SCH (11:34)
[2017-09-21 11:41] LABS: ALBUMIN 3.8 g/dL (3.5-5.0); ALT/SGPT 27 U/L (21-72); AST/SGOT 14 U/L (17-59); BLOOD UREA NITROGEN 23 mg/dL (9-20); GFR AFRICAN-AMERICAN > 60; GFR NON-AFRICAN AMERICAN > 60
--- NOTE | 2017-09-21 11:45 | CP.PCM.PN ---
Subjective - Date & Time of Evaluation Date of Evaluation: 09/21/17 Time of Evaluation: 11:43 - Subjective Subjective: PATIENT WAS ADMITTED FOR CHEST PAIN DENES SOB CHEST PAIN / ABD PAIN / NAUSEA OR VOMITING NO SIGN OF DISTRESS NOTED Objective - Vital Signs/Intake and Output Vital Signs (last 24 hours): Temp Pulse Resp BP Pulse Ox 98.3 F 60 20 147/82 100 09/21/17 07:00 09/21/17 07:38 09/21/17 07:00 09/21/17 10:33 09/21/17 07:00 Intake and Output: 09/21/17 09/21/17 06:59 18:59 Output Total 1850 Balance -1850 - Medications Medications: Current Medications Apixaban (Eliquis) 5 mg PO Q12 [facility] Last Admin: 09/21/17 10:33 Dose: 5 mg Carvedilol (Coreg) 25 mg PO BID [facility] Last Admin: 09/21/17 10:33 Dose: 25 mg Clopidogrel Bisulfate (Plavix) 75 mg PO DAILY [facility] Last Admin: 09/21/17 10:32 Dose: 75 mg Digoxin (Digoxin) 0.125 mg PO DAILY@1800 [facility] Last Admin: 09/20/17 17:11 Dose: 0.125 mg Furosemide (Lasix) 40 mg PO BID [facility] Last Admin: 09/21/17 10:33 Dose: 40 mg Hydroxychloroquine Sulfate (Plaquenil) 200 mg PO BID [facility] PRN Reason: Protocol Last Admin: 09/21/17 10:33 Dose: 200 mg Insulin Aspart (Novolog) 0 unit SC ACHS [facility] PRN Reason: Protocol Levothyroxine Sodium (Synthroid) 100 mcg PO DAILY@0630 [facility] Last Admin: 09/21/17 06:28 Dose: 100 mcg Lisinopril (Zestril) 5 mg PO DAILY [facility] Last Admin: 09/21/17 10:33 Dose: 5 mg [facility] Admin: 09/21/17 08:36 Dose: Not Given Nitroglycerin (Nitrostat Sl Tab) 0.4 mg SL Q5MIN PRN PRN Reason: chest pain Oxycodone HCl (Oxycodone Immediate Release Tab) 30 mg PO Q4H PRN PRN Reason: Pain, Mild (1-3) Last Admin: 09/21/17 10:34 Dose: 30 mg Rosuvastatin Calcium (Crestor) 40 mg PO HS [facility] Last Admin: 09/20/17 21:43 Dose: 40 mg Sitagliptin Phosphate (Januvia) 50 mg PO DAILY [facility] Last Admin: 09/21/17 10:33 Dose: 50 mg - Labs Labs: 09/21/17 11:15 09/21/17 11:15 PT 12.1 SECONDS (9.7-12.2) 09/19/17 19:31 INR 1.1 09/19/17 19:31 APTT 30 SECONDS (21-34) 09/19/17 19:31 Assessment and Plan - Assessment and Plan (Free Text) Assessment: PATIENT SEEN AND EXAMINED AT THE BEDSIDE LUNG SOUND CLEAR SEAN TNI X3 WERE NEG DISCUSS WITH DR BLANDON WHO CLEAR FOR DC FOLLOW UP WITH DR BLANDON IN 1-2 WEEK AT AT HIS OFFICE ---CALL FOR APPOINTMENT CONTINUE HOME MEDICATION ORDER ACTIVITY TOLERATED CALL DR BLANDON OR GO THE EMERGENCY ROOM IF SYMPTOM RETURN OR WORSENING DISCUSS WITH PATIENT WHO AGREE AND VERBALIZED UNDERSTANDING
[2017-09-21 11:48] LABS: CK-MB 0.65 ng/mL (0.0-3.38)
--- NOTE | 2017-09-22 10:42 | CP.PCM.DIS ---
Provider - Provider Date of Admission: 09/19/17 20:08 Attending physician: Ousmane Amor MD Time Spent in preparation of Discharge (in minutes): 45 Hospital Course - Lab Results Lab Results: Most Recent Lab Values WBC 9.3 K/uL (4.8-10.8) 09/21/17 11:15 RBC 4.28 Mil/uL (4.40-5.90) L 09/21/17 11:15 Hgb 11.3 g/dL (12.0-18.0) L 09/21/17 11:15 Hct 34.7 % (35.0-51.0) L 09/21/17 11:15 MCV 81.0 fL (80.0-94.0) 09/21/17 11:15 MCH 26.4 pg (27.0-31.0) L 09/21/17 11:15 MCHC 32.5 g/dL (33.0-37.0) L 09/21/17 11:15 RDW 15.7 % (11.5-14.5) H 09/21/17 11:15 Plt Count 197 K/uL (130-400) 09/21/17 11:15 MPV 8.7 fL (7.2-11.7) 09/21/17 11:15 Neut % (Auto) 82.8 % (50.0-75.0) H 09/21/17 11:15 Lymph % (Auto) 11.8 % (20.0-40.0) L 09/21/17 11:15 [place] % (Auto) 4.0 % (0.0-10.0) 09/21/17 11:15 Eos % (Auto) 0.5 % (0.0-4.0) 09/21/17 11:15 Baso % (Auto) 0.9 % (0.0-2.0) 09/21/17 11:15 Neut # (Auto) 7.7 K/uL (1.8-7.0) H 09/21/17 11:15 Lymph # (Auto) 1.1 K/uL (1.0-4.3) 09/21/17 11:15 [place] # (Auto) 0.4 K/uL (0.0-0.8) 09/21/17 11:15 Eos # (Auto) 0.0 K/uL (0.0-0.7) 09/21/17 11:15 Baso # (Auto) 0.1 K/uL (0.0-0.2) 09/21/17 11:15 Neutrophils % (Manual) 85 % (50-75) H 09/19/17 19:31 Lymphocytes % (Manual) 9 % (20-40) L 09/19/17 19:31 Monocytes % (Manual) 5 % (0-10) 09/19/17 19:31 Eosinophils % (Manual) 1 % (0-4) 09/19/17 19:31 Platelet Estimate Normal (NORMAL) 09/19/17 19:31 Large Platelets Present 09/19/17 19:31 Hypochromasia (manual) Slight 09/19/17 19:31 Poikilocytosis (manual Slight 09/19/17 19:31 Anisocytosis (manual) Slight 09/19/17 19:31 Ovalocytes Slight 09/19/17 19:31 PT 12.1 SECONDS (9.7-12.2) 09/19/17 19:31 INR 1.1 09/19/17 19:31 APTT 30 SECONDS (21-34) 09/19/17 19:31 Sodium 137 mmol/L (132-148) 09/21/17 11:15 Potassium 4.7 mmol/L (3.6-5.2) 09/21/17 11:15 Chloride 101 mmol/L (98-107) 09/21/17 11:15 Carbon Dioxide 25 mmol/L (22-30) 09/21/17 11:15 Anion Gap 16 (10-20) 09/21/17 11:15 BUN 23 mg/dL (9-20) H 09/21/17 11:15 Creatinine 1.0 mg/dL (0.8-1.5) 09/21/17 11:15 Est GFR ( Amer) > 60 09/21/17 11:15 Est GFR (Non-Af Amer) > 60 09/21/17 11:15 POC Glucose (mg/dL) 326 mg/dL (65-110) H 09/21/17 11:03 Random Glucose 305 mg/dL (75-110) H 09/21/17 11:15 Calcium 9.0 mg/dl (8.6-10.4) 09/21/17 11:15 Total Bilirubin 0.4 mg/dL (0.2-1.3) 09/21/17 11:15 AST 14 U/L (17-59) L D 09/21/17 11:15 ALT 27 U/L (21-72) 09/21/17 11:15 Alkaline Phosphatase 122 U/L (38-126) 09/21/17 11:15 Total Creatine Kinase 65 U/L (55-170) 09/21/17 11:15 CK-MB (Mass) 0.65 ng/mL (0.0-3.38) 09/21/17 11:15 Troponin I < 0.0120 ng/mL (0.00-0.120) 09/21/17 11:15 NT-Pro-B Natriuret Pep 916 pg/mL (0-900) H 09/19/17 19:31 Total Protein 7.3 g/dL (6.3-8.3) 09/21/17 11:15 Albumin 3.8 g/dL (3.5-5.0) 09/21/17 11:15 Globulin 3.6 gm/dL (2.2-3.9) 09/21/17 11:15 Albumin/Globulin Ratio 1.0 (1.0-2.1) 09/21/17 11:15 - Hospital Course Hospital Course: PATIENT SEEN AND EXAMINED AT THE BEDSIDE LUNG SOUND CLEAR SEAN TNI X3 WERE NEG DISCUSS WITH DR AMOR WHO CLEAR FOR DC FOLLOW UP WITH DR AMOR IN 1-2 WEEK AT AT HIS OFFICE ---CALL FOR APPOINTMENT CONTINUE HOME MEDICATION ORDER ACTIVITY TOLERATED CALL DR AMOR OR GO THE EMERGENCY ROOM IF SYMPTOM RETURN OR WORSENING DISCUSS WITH PATIENT WHO AGREE AND VERBALIZED UNDERSTANDING Discharge Plan - Discharge Medications Prescriptions: Atorvastatin [Lipitor] 80 mg PO DAILY 30 Days tab Promethazine [Phenergan Syrup] 6.25 mg PO Q6 PRN #8 oz PRN Reason: Cough - Follow Up Plan Condition: FAIR Disposition: HOME/ ROUTINE Instructions: Heart Failure, Adult (DC), Obstructive Sleep Apnea, Adult (DC), Chest Pain (DC) Additional Instructions: FOLLOW UP WITH DR AMOR IN 1-2 WEEK AT AT HIS OFFICE ---CALL FOR APPOINTMENT CONTINUE HOME MEDICATION ORDER ACTIVITY TOLERATED CALL DR AMOR OR GO THE EMERGENCY ROOM IF SYMPTOM RETURN OR WORSENING Referrals: Ousmane Amor MD [Staff Provider] -
--- NOTE | 2017-09-22 11:37 | CP.PCM.PN ---
Subjective - Date & Time of Evaluation Date of Evaluation: 09/20/17 Time of Evaluation: 18:00 - Subjective Subjective: PATIENT WAS ADMITTED FOR CHEST PAIN DENES SOB CHEST PAIN / ABD PAIN / NAUSEA OR VOMITING NO SIGN OF DISTRESS NOTED Objective - Vital Signs/Intake and Output Vital Signs (last 24 hours): Temp Pulse Resp BP Pulse Ox 98.3 F 60 20 147/82 100 09/21/17 07:00 09/21/17 07:38 09/21/17 07:00 09/21/17 10:33 09/21/17 07:00 - Labs Labs: 09/21/17 11:15 09/21/17 11:15 PT 12.1 SECONDS (9.7-12.2) 09/19/17 19:31 INR 1.1 09/19/17 19:31 APTT 30 SECONDS (21-34) 09/19/17 19:31 - Constitutional Appears: No Acute Distress - Eye Exam Eye Exam: EOMI, Normal appearance, PERRL Pupil Exam: NORMAL ACCOMODATION, PERRL - ENT Exam ENT Exam: Mucous Membranes Moist, Normal Exam - Neck Exam Neck Exam: Full ROM, Normal Inspection. absent: Lymphadenopathy - Respiratory Exam Respiratory Exam: Clear to Ausculation Bilateral, NORMAL BREATHING PATTERN - Cardiovascular Exam Cardiovascular Exam: REGULAR RHYTHM, +S1, +S2. absent: Murmur - GI/Abdominal Exam GI & Abdominal Exam: Soft, Normal Bowel Sounds. absent: Tenderness - Rectal Exam Rectal Exam: Deferred Assessment and Plan (1) Hypertensive heart disease Status: Active (2) Hypothyroidism Status: Active (3) AICD (automatic cardioverter/defibrillator) present Status: Acute (4) Chest pain Status: Acute (5) Diabetes mellitus Status: Acute
== END 2017-09-21 12:15 | disposition home or self-care (01) ==
LOC: C.ER 18:41 → C.9E 20:08 → C.5S 20:40
PROVIDERS: ADMIT Internal Medicine; ATTEND Internal Medicine
DX: R07.9 Chest pain, unspecified (principal); E03.9 Hypothyroidism, unspecified; E11.9 Type 2 diabetes mellitus without complications; E66.01 Morbid (severe) obesity due to excess calories; E78.00 Pure hypercholesterolemia, unspecified; G47.30 Sleep apnea, unspecified; I11.0 Hypertensive heart disease with heart failure; I25.10 Atherosclerotic heart disease of native coronary artery without angina pectoris; I48.91 Unspecified atrial fibrillation; I50.9 Heart failure, unspecified; J44.9 Chronic obstructive pulmonary disease, unspecified; Z68.42 Body mass index [BMI] 45.0-49.9, adult; Z86.73 Personal history of transient ischemic attack (TIA), and cerebral infarction without residual deficits; F17.210 Nicotine dependence, cigarettes, uncomplicated; Z95.0 Presence of cardiac pacemaker; Z95.1 Presence of aortocoronary bypass graft; Z87.01 Personal history of pneumonia (recurrent)
CPT/HCPCS: 36415; 71045; 80053; 82948; 83880; 84484; 85025; 85610; 85730; 94660; 99285; G0378

== ENCOUNTER 2017-10-01 20:02 | Observation (INO) | payer MEDICARE, OTHER ==
[2017-10-01 20:02] VITALS: BMI 48.3
[2017-10-01] MEDS ORDERED: Nitroglycerin 2% Ointment Foilpak UD TOP STA (20:41)
[2017-10-01] MEDS ORDERED: Nitroglycerin 2% Ointment Foilpak UD TOP ONE (20:56)
[2017-10-01 20:57] LABS: BASO % 0.7 % (0.0-2.0); EOS # 0.1 K/uL (0.0-0.7); EOS % 0.9 % (0.0-4.0); HEMOGLOBIN 10.8 g/dL (12.0-18.0); LYMPH # 0.7 K/uL (1.0-4.3); MEAN CELL VOLUME 82.1 fL (80.0-94.0); MEAN CORPUSCULAR HEMOGLOBIN 25.7 pg (27.0-31.0); MEAN CORPUSCULAR HGB CONC 31.4 g/dL (33.0-37.0); MEAN PLATELET VOLUME 8.9 fL (7.2-11.7); MONO # 0.4 K/uL (0.0-0.8); NEUT # 5.4 K/uL (1.8-7.0); NEUT % 81.4 % (50.0-75.0); NRBC % 0.1 % (0.0-2.0); RBC 4.18 Mil/uL (4.40-5.90); RED CELL DISTRIBUTION WIDTH 15.9 % (11.5-14.5); WHITE BLOOD COUNT 6.7 K/uL (4.8-10.8)
[2017-10-01 21:15] LABS: ALB/GLOB RATIO 1.1 (1.0-2.1); ALBUMIN 3.8 g/dL (3.5-5.0); ALT/SGPT 19 U/L (21-72); AST/SGOT 15 U/L (17-59); BLOOD UREA NITROGEN 46 mg/dL (9-20); CALCIUM 8.9 mg/dl (8.6-10.4); GFR AFRICAN-AMERICAN > 60; GFR NON-AFRICAN AMERICAN 54
[2017-10-01 21:21] LABS: B-TYPE NATRIURETIC PEPTIDE 368 pg/mL (0-900)
[2017-10-01] MEDS ORDERED: (Novolin R) Insulin Human Regular 100 units/ml vial IV STA (21:24)
[2017-10-01] MEDS ORDERED: (Novolin R) Insulin Human Regular 100 units/ml vial ONE (21:31)
--- NOTE | 2017-10-01 21:33 | C.PDOC ---
Time Seen by Provider: 10/01/17 20:36 Chief Complaint (Nursing): Chest Pain History Per: Patient Onset/Duration Of Symptoms: Hrs (1) Current Symptoms Are (Timing): Still Present Severity: Moderate Quality: "Pain" Associated Symptoms: Dyspnea Modifying Factors: Other Indicated Below Alleviating Factors: None Additional History Per: Prior Records Past Medical History Reviewed: Historical Data, Nursing Documentation, Vital Signs Vital Signs: Last Vital Signs Temp 98.9 F 10/01/17 20:16 Pulse 84 10/01/17 21:00 Resp 16 10/01/17 21:00 BP 143/109 H 10/01/17 20:16 Pulse Ox 95 10/01/17 20:16 - Medical History PMH: Anemia, Anxiety, Atrial Fibrillation, Back Problems, CAD, Cardia Arrhythmia (AFIB), CHF, COPD, Diabetes, Deep Vein Thrombosis, Emphysema, Graves ' Disease, HTN, Hypercholesterolemia, Hypothyroidism, Peripheral Edema, Pneumonia, Sleep Apnea, TIA (2008) Surgical History: CABG (2008), Coronary Stent (4 stents), Pacemaker - [facility] ASSISTANCE WITH RESPIRATORY VENTILATION, 24-96 HRS, CPAP (10/15/15) INJECT/INFUSE NEC (10/09/12) Family History: States: Unknown Family Hx - Social History Hx Tobacco Use: Yes Hx Alcohol Use: No Hx Substance Use: No - Immunization History Hx Tetanus Toxoid Vaccination: Yes Hx Influenza Vaccination: Yes Hx Pneumococcal Vaccination: Yes Review Of Systems Except As Marked, All Systems Reviewed And Found Negative. Constitutional: Negative for: Fever, Weakness Cardiovascular: Positive for: Chest Pain, Edema Respiratory: Positive for: Shortness of Breath. Negative for: Hemoptysis Gastrointestinal: Negative for: Vomiting, Abdominal Pain Musculoskeletal: Negative for: Neck Pain, Back Pain Neurological: Negative for: Weakness, Numbness Physical Exam - Physical Exam Appears: No Acute Distress, Chronically Ill Skin: Warm Head: Atraumatic, Normacephalic Eye(s): bilateral: PERRL, EOMI Neck: Normal ROM, Supple Cardiovascular: Rhythm Regular Respiratory: Normal Breath Sounds, No Accessory Muscle Use Gastrointestinal/Abdominal: Soft, No Tenderness Back: No CVA Tenderness Extremity: Normal ROM, Pedal Edema Neurological/Psych: Oriented x3, Normal Motor, Normal Sensation ED Course And Treatment - Laboratory Results Result Diagrams: 10/01/17 20:49 10/01/17 20:49 Lab Interpretation: Abnormal Interpretation Of Abnormal: Hyperglycemia ECG: Interpreted By Me, Viewed By Me ECG Rhythm: AV Paced, Nonspecific Changes ECG Interpretation: No Changes From Prior Rate From EC O2 Sat by Pulse Oximetry: 95 Pulse Ox Interpretation: Normal - Radiology CXR: Interpreted by Me, Viewed By Me CXR Interpretation: Yes: No Acute Disease Progress - Interventions Interventions:: Observation, Oxygen - Medications Administered Oral: Aspirin (Pt took at home today) - Data Reviewed Data Reviewed: Lab, Diagnostic imaging, EKG, Old records - Patient Status Patient status: Partially improved - Continuity of Care Discussed patient case with:: Patient, ED Nurse, PMD Disposition Discussed With : Ousmane Amor Comment: He accepted pt on his service. Doctor Will See Patient In The: Hospital Counseled Patient/Family Regarding: Studies Performed, Diagnosis, Smoking Cessation - Disposition Disposition: HOSPITALIZED Disposition Time: 21:33 Condition: FAIR Forms: [facility] (Slovenian) - POA Present On Arrival: Poor Glycemic Control - Clinical Impression Clinical Impression: Acute chest pain, Uncontrolled diabetes mellitus
[2017-10-01] MEDS ORDERED: oxyCODONE 30 mg Immediate Release Tab PO PRN (22:33)
--- NOTE | 2017-10-01 23:46 | CP.PCM.HP ---
History of Present Illness - History of Present Illness History of Present Illness: CC: Chest pain, SHORTNESS OF BREATHx 1 day HPI: Pt is a middle gaed morbidly obese male with history of Anemia, Anxiety, Atrial Fibrillation, Back Problems, CAD, Cardia Arrhythmia (AFIB), CHF, COPD, Diabetes, Deep Vein Thrombosis, Emphysema, Graves' Disease, HTN, Hypercholesterolemia, Hypothyroidism, Peripheral Edema, Pneumonia, Sleep Apnea, TIA (2008)s/p CABG (2008), Coronary Stent (4 stents), Pacemaker, AICD in place came in with c/o shortness of breath and chest pain which started last night located in left precordium., dull in nature, non radiating, associated with diaphoresis, dyspnea. he has cough denies any fever, chills, his blood sugar was high, has b/l pedal edema Present on Admission - Present on Admission Any Indicators Present on Admission: Yes Review of Systems - Review of Systems Systems not reviewed;Unavailable: Acuity of Condition, Uncooperative - Constitutional Constitutional: Fatigue, Fever, Lethargy, Weakness - EENT Eyes: absent: As Per HPI, Blind Spots, Blurred Vision, Change in Vision, Decreased Night Vision, Diplopia, Discharge, Dry Eye, Exophthalmos, Floaters, Irritation, Itchy Eyes, Loss of Peripheral Vision, Pain, Photophobia, Requires Corrective Lenses, Sees Flashes, Spots in Vision, Tunnel Vision, Other Visual Disturbances, Loss of Vision, Other Nose/Mouth/Throat: absent: As Per HPI, Epistaxis, Nasal Congestion, Nasal Discharge, Nasal Obstruction, Nasal Trauma, Nose Pain, Post Nasal Drip, Sinus Pain, Sinus Pressure, Bleeding Gums, Change in Voice, Dental Pain, Dry Mouth, Dysphagia, Halitosis, Hoarsness, Lip Swelling, Mouth Lesions, Mouth Pain, Odynophagia, Sore Throat, Throat Swelling, Tongue Swelling, Facial Pain, Neck Pain, Neck Mass, Other - Cardiovascular Cardiovascular: Chest Pain, Diaphoresis, Dyspnea, Dyspnea on Exertion, Leg Edema - Respiratory Respiratory: Cough, Dyspnea, Chest Congestion, Pain with Coughing - Gastrointestinal Gastrointestinal: absent: As Per HPI, Abdominal Pain, Belching, Bloating, Change in Bowel Habits, Change in Stool Character, Coffee Ground Emesis, Constipation, Cramping, Diarrhea, Dyspepsia, Dysphagia, Early Satiety, Excessive Flatus, Fecal Incontinence, Heartburn, Hematemesis, Hematochezia, Loose Stools, Melena, Nausea, Odynophagia, Temesmus, Vomiting, Other - Genitourinary Genitourinary: absent: As Per HPI, Change in Urinary Stream, Difficulty Urinating, Dysuria, Flank Pain, Hematuria, Pyuria, Nocturia, Urinary Incontinence, Urinary Frequency, Urinary Hesitance, Urinary Urgency, Voiding Freq/Small Amts, Freq UTI, Hx Renal/Bladder Calculi, Hx /Renal Surgery, Bladder Distension, Other - Musculoskeletal Musculoskeletal: Joint Swelling, Numbness, Stiffness, Tingling - Integumentary Integumentary: absent: As Per HPI, Acne, Alopecia, Bleeding Lesions, Change in Hair, Change in Nails, Change in Pigmentation, Changing Lesions, Dry Skin, Erythema, Furuncle, Hirsutism, Lesions, New Lesions, Non-Healing Lesions, Photosensitivity, Pruritus, Rash, Skin Pain, Skin Ulcer, Sores, Striae, Swelling , Unusual Bruising, Wounds, Jaundice, Other Past Patient History - Infectious Disease Hx of Infectious Diseases: None - Past Medical History & Family History Past Medical History?: Yes - Past Social History Smoking Status: Light Smoker < 10 Cigarettes Daily - CARDIAC Hx Atrial Fibrillation: Yes Hx Cardia Arrhythmia: Yes (AFIB) Hx Congestive Heart Failure: Yes Hx Hypercholesterolemia: Yes Hx Hypertension: Yes Hx Pacemaker: Yes Hx Peripheral Edema: Yes - PULMONARY Hx Chronic Obstructive Pulmonary Disease (COPD): Yes Hx Emphysema: Yes Hx Pneumonia: Yes Hx Sleep Apnea: Yes - NEUROLOGICAL Hx Transient Ischemic Attacks (TIA): Yes (2008) - HEENT Hx HEENT Problems: No - RENAL Hx Chronic Kidney Disease: No - ENDOCRINE/METABOLIC Hx Hypothyroidism: Yes - HEMATOLOGICAL/ONCOLOGICAL Hx Anemia: Yes - INTEGUMENTARY Hx Dermatological Problems: No - MUSCULOSKELETAL/RHEUMATOLOGICAL Hx Falls: No - GASTROINTESTINAL Hx Gastrointestinal Disorders: No - GENITOURINARY/GYNECOLOGICAL Hx Genitourinary Disorders: No - PSYCHIATRIC Hx Anxiety: Yes Hx Substance Use: No - SURGICAL HISTORY Hx Coronary Artery Bypass Graft: Yes (2008) Hx Coronary Stent: Yes (4 stents) - ANESTHESIA Hx Anesthesia: Yes Hx Anesthesia Reactions: No Hx Malignant Hyperthermia: No Meds Allergies/Adverse Reactions: Allergies Allergy/AdvReac Type Severity Reaction Status Date / Time No Known Drug Allergies Allergy n/a Verified 10/01/17 20:20 Physical Exam - Constitutional Appears: No Acute Distress - ENT Exam ENT Exam: Mucous Membranes Moist, Normal Exam - Respiratory Exam Respiratory Exam: Decreased Breath Sounds, Rales, Rhonchi - Cardiovascular Exam Cardiovascular Exam: REGULAR RHYTHM, +S1, +S2, Systolic Murmur - GI/Abdominal Exam GI & Abdominal Exam: Normal Bowel Sounds, Soft. absent: Tenderness - Neurological Exam Neurological exam: Alert, CN II-XII Intact, Normal Gait, Oriented x3, Reflexes Normal - Psychiatric Exam Psychiatric exam: Normal Affect, Normal Mood Results - Vital Signs Recent Vital Signs: Last Vital Signs Temp 98.9 F 10/01/17 20:16 Pulse 84 10/01/17 22:34 Resp 14 10/01/17 22:34 BP 138/84 10/01/17 22:34 Pulse Ox 97 10/01/17 22:34 - Labs Result Diagrams: 10/01/17 20:49 10/01/17 20:49 Labs: Laboratory Results - last 24 hr 10/01/17 10/01/17 10/01/17 20:49 20:49 20:49 WBC 6.7 RBC 4.18 L Hgb 10.8 L Hct 34.3 L MCV 82.1 MCH 25.7 L MCHC 31.4 L RDW 15.9 H Plt Count 172 MPV 8.9 Neut % (Auto) 81.4 H Lymph % (Auto) 11.0 L Sebastian % (Auto) 6.0 Eos % (Auto) 0.9 Baso % (Auto) 0.7 Neut # (Auto) 5.4 Lymph # (Auto) 0.7 L Sebastian # (Auto) 0.4 Eos # (Auto) 0.1 Baso # (Auto) 0.0 Sodium 136 Potassium 4.5 Chloride 97 L Carbon Dioxide 28 Anion Gap 16 BUN 46 H Creatinine 1.4 Est GFR ( Amer) > 60 Est GFR (Non-Af Amer) 54 Random Glucose 409 H* D Calcium 8.9 Total Bilirubin 0.4 AST 15 L ALT 19 L D Alkaline Phosphatase 144 H Troponin I < 0.0120 NT-Pro-B Natriuret Pep 368 Total Protein 7.3 Albumin 3.8 Globulin 3.5 Albumin/Globulin Ratio 1.1 Digoxin 0.4 L Assessment & Plan (1) Acute chest pain Status: Acute (2) Uncontrolled diabetes mellitus Status: Acute (3) Hypertensive heart disease Status: Active (4) AICD (automatic cardioverter/defibrillator) present Status: Acute (5) CHF exacerbation Status: Acute (6) [place] and COPD overlap syndrome Status: Chronic
[2017-10-01 23:56] VITALS: RESP 20
[2017-10-02] MEDS: oxyCODONE 30 mg Immediate Release Tab PO PRN ×6 (00:16→21:23)
[2017-10-02 04:18] LABS: CK-MB 0.46 ng/mL (0.0-3.38); TROPONIN I 0.012 ng/mL (0.00-0.120)
[2017-10-02] MEDS: Levothyroxine 100 MCG TAB PO SCH (05:54)
[2017-10-02] MEDS: (Novolin R) Insulin Human Regular 100 units/ml vial SC SCH ×3 (08:07→17:25)
--- NOTE | 2017-10-02 08:20 | RAD ---
Date of service: 10/01/2017 PROCEDURE: CHEST RADIOGRAPH, 1 VIEW HISTORY: chest pain COMPARISON: 07/19/2017. FINDINGS: LUNGS: The lungs are well inflated. There is mild pulmonary venous congestion. PLEURA: No pneumothorax or pleural fluid seen. CARDIOVASCULAR: There is moderate cardiomegaly. Status post CABG. There is stable position of left-sided permanent pacing device. OSSEOUS STRUCTURES: No significant abnormalities. VISUALIZED UPPER ABDOMEN: Normal. OTHER FINDINGS: None. IMPRESSION: Persistent cardiomegaly and mild pulmonary venous congestion.
[2017-10-02 11:44] LABS: CK-MB 0.53 ng/mL (0.0-3.38)
[2017-10-02 13:30] LABS: BARBITURATES, UR NEGATIVE (NEGATIVE); BENZODIAZEPINES, UR NEGATIVE (NEGATIVE); PHENCYCLIDINE, UR NEGATIVE (NEGATIVE)
[2017-10-02 13:49] LABS: OPIATES, UR POSITIVE (NEGATIVE)
[2017-10-02 17:26] VITALS: PULSE 74
[2017-10-02] MEDS ORDERED: Digoxin 125 mcg (0.125 mg) Tab PO SCH (18:00)
--- NOTE | 2017-10-02 20:47 | CARD ---
APPROVED REPORT Date of service: 10/01/2017 EKG Measurement Heart [id number] <Conclusion> Atrial-sensed ventricular-paced rhythm Abnormal ECG
[2017-10-03] VITALS: TEMP 98; O2SAT 99
[2017-10-03] MEDS: oxyCODONE 30 mg Immediate Release Tab PO PRN ×3 (01:20→13:17)
[2017-10-03] MEDS: Levothyroxine 100 MCG TAB PO SCH (07:15)
[2017-10-03 07:39] VITALS: PULSE 75
[2017-10-03] MEDS: (Novolin R) Insulin Human Regular 100 units/ml vial SC SCH ×2 (08:41→13:13)
[2017-10-03 11:32] VITALS: BP 130/81
[2017-10-03] MEDS ORDERED: Amoxicillin-Clav 875-125 mg Tab PO STA (12:20)
--- NOTE | 2017-10-03 12:46 | CP.PCM.PN ---
Subjective - Date & Time of Evaluation Date of Evaluation: 10/03/17 Time of Evaluation: 12:45 - Subjective Subjective: -FOLLOW UP WITH DR. BLANDON IN THE OFFICE WITHIN 5-7 DAYS---CALL THE OFFICE FOR APPOINTMENT TIME -CONTINUE ALL OF YOUR HOME MEDICATIONS USUAL. -NEW PRESCRIPTIONS SENT TO YOUR PHARMACY INCLUDE: 1) AUGMENTIN 875 MG (ANTIBIOTIC)--TAKE 1 TABLET BY MOUTH EVERY 12 HOURS ( MORNING AND EVENING) FOR 7 DAYS. 2) MUCINEX 600 MG (EXPECTORANT, THIS WILL HELP WITH YOUR CONGESTION AND PHLEGM) --TAKE 1 TABLET BY MOUTH EVERY 12 HOURS (MORNING AND EVENING) FOR 7 DAYS. -FOR FURTHER QUESTIONS, CONTACT DR. BLANDON. Objective - Vital Signs/Intake and Output Vital Signs (last 24 hours): Temp Pulse Resp BP Pulse Ox 98.0 F 75 20 130/81 99 10/03/17 07:00 10/03/17 07:00 10/03/17 07:00 10/03/17 11:31 10/03/17 08:56 - Medications Medications: Current Medications Apixaban (Eliquis) 5 mg PO Q12 [facility] Last Admin: 10/03/17 10:23 Dose: 5 mg Carvedilol (Coreg) 25 mg PO BID [facility] Last Admin: 10/03/17 10:22 Dose: 25 mg Clopidogrel Bisulfate (Plavix) 75 mg PO DAILY [facility] Last Admin: 10/03/17 10:22 Dose: 75 mg Digoxin (Digoxin) 0.125 mg PO DAILY@1800 [facility] Last Admin: 10/02/17 17:24 Dose: 0.125 mg Famotidine (Pepcid) 20 mg PO BID [facility] Last Admin: 10/03/17 10:23 Dose: 20 mg Furosemide (Lasix) 80 mg IVP Q12 [facility] Last Admin: 10/03/17 11:20 Dose: Not Given Hydroxychloroquine Sulfate (Plaquenil) 200 mg PO BID [facility] PRN Reason: Protocol Last Admin: 10/03/17 10:22 Dose: 200 mg Insulin Human Regular (Novolin R) 0 unit SC [facility] PRN Reason: Protocol Last Admin: 10/03/17 08:41 Dose: 2 units Levothyroxine Sodium (Synthroid) 100 mcg PO DAILY@0630 [facility] Last Admin: 10/03/17 07:15 Dose: 100 mcg Lisinopril (Zestril) 5 mg PO DAILY [facility] Last Admin: 10/03/17 10:23 Dose: 5 mg Metformin HCl (Glucophage) 500 mg PO BIDCC [facility] Last Admin: 10/03/17 08:49 Dose: Not Given Nitroglycerin (Nitrostat Sl Tab) 0.4 mg SL Q5MIN PRN PRN Reason: chest pain Oxycodone HCl (Oxycodone Immediate Release Tab) 30 mg PO Q4H PRN PRN Reason: Pain, severe (8-10) Last Admin: 10/03/17 08:45 Dose: 30 mg Rosuvastatin Calcium (Crestor) 40 mg PO [facility] Last Admin: 10/02/17 21:23 Dose: 40 mg Sitagliptin Phosphate (Januvia) 50 mg PO DAILY [facility] Last Admin: 10/03/17 10:23 Dose: 50 mg - Labs Labs: 10/01/17 20:49 10/01/17 20:49
--- NOTE | 2017-10-04 00:12 | CP.PCM.DIS ---
Provider - Provider Date of Admission: 10/01/17 21:33 Attending physician: Ousmane Amor MD Time Spent in preparation of Discharge (in minutes): 45 Diagnosis - Discharge Diagnosis (1) Acute chest pain Status: Acute (2) Uncontrolled diabetes mellitus Status: Acute (3) Hypertensive heart disease Status: Active (4) AICD (automatic cardioverter/defibrillator) present Status: Acute (5) CHF exacerbation Status: Acute (6) [place] and COPD overlap syndrome Status: Chronic Hospital Course - Lab Results Lab Results: Most Recent Lab Values WBC 6.7 K/uL (4.8-10.8) 10/01/17 20:49 RBC 4.18 Mil/uL (4.40-5.90) L 10/01/17 20:49 Hgb 10.8 g/dL (12.0-18.0) L 10/01/17 20:49 Hct 34.3 % (35.0-51.0) L 10/01/17 20:49 MCV 82.1 fL (80.0-94.0) 10/01/17 20:49 MCH 25.7 pg (27.0-31.0) L 10/01/17 20:49 MCHC 31.4 g/dL (33.0-37.0) L 10/01/17 20:49 RDW 15.9 % (11.5-14.5) H 10/01/17 20:49 Plt Count 172 K/uL (130-400) 10/01/17 20:49 MPV 8.9 fL (7.2-11.7) 10/01/17 20:49 Neut % (Auto) 81.4 % (50.0-75.0) H 10/01/17 20:49 Lymph % (Auto) 11.0 % (20.0-40.0) L 10/01/17 20:49 Cook % (Auto) 6.0 % (0.0-10.0) 10/01/17 20:49 Eos % (Auto) 0.9 % (0.0-4.0) 10/01/17 20:49 Baso % (Auto) 0.7 % (0.0-2.0) 10/01/17 20:49 Neut # (Auto) 5.4 K/uL (1.8-7.0) 10/01/17 20:49 Lymph # (Auto) 0.7 K/uL (1.0-4.3) L 10/01/17 20:49 Cook # (Auto) 0.4 K/uL (0.0-0.8) 10/01/17 20:49 Eos # (Auto) 0.1 K/uL (0.0-0.7) 10/01/17 20:49 Baso # (Auto) 0.0 K/uL (0.0-0.2) 10/01/17 20:49 Sodium 136 mmol/L (132-148) 10/01/17 20:49 Potassium 4.5 mmol/L (3.6-5.2) 10/01/17 20:49 Chloride 97 mmol/L (98-107) L 10/01/17 20:49 Carbon Dioxide 28 mmol/L (22-30) 10/01/17 20:49 Anion Gap 16 (10-20) 10/01/17 20:49 BUN 46 mg/dL (9-20) H 10/01/17 20:49 Creatinine 1.4 mg/dL (0.8-1.5) 10/01/17 20:49 Est GFR ( Amer) > 60 10/01/17 20:49 Est GFR (Non-Af Amer) 54 10/01/17 20:49 POC Glucose (mg/dL) 240 mg/dL (65-110) H 10/03/17 12:10 Random Glucose 409 mg/dL (75-110) H* D 10/01/17 20:49 Calcium 8.9 mg/dl (8.6-10.4) 10/01/17 20:49 Total Bilirubin 0.4 mg/dL (0.2-1.3) 10/01/17 20:49 AST 15 U/L (17-59) L 10/01/17 20:49 ALT 19 U/L (21-72) L D 10/01/17 20:49 Alkaline Phosphatase 144 U/L (38-126) H 10/01/17 20:49 Total Creatine Kinase 67 U/L (55-170) 10/02/17 11:16 CK-MB (Mass) 0.53 ng/mL (0.0-3.38) 10/02/17 11:16 Troponin I < 0.0120 ng/mL (0.00-0.120) 10/02/17 11:16 NT-Pro-B Natriuret Pep 368 pg/mL (0-900) 10/01/17 20:49 Total Protein 7.3 g/dL (6.3-8.3) 10/01/17 20:49 Albumin 3.8 g/dL (3.5-5.0) 10/01/17 20:49 Globulin 3.5 gm/dL (2.2-3.9) 10/01/17 20:49 Albumin/Globulin Ratio 1.1 (1.0-2.1) 10/01/17 20:49 Digoxin 0.4 ng/mL (0.8-2.0) L 10/01/17 20:49 Urine Opiates Screen Positive (NEGATIVE) H 10/02/17 12:57 Urine Methadone Screen Negative (NEGATIVE) 10/02/17 12:57 Ur Barbiturates Screen Negative (NEGATIVE) 10/02/17 12:57 Ur Phencyclidine Scrn Negative (NEGATIVE) 10/02/17 12:57 Ur Amphetamines Screen Negative (NEGATIVE) 10/02/17 12:57 U Benzodiazepines Scrn Negative (NEGATIVE) 10/02/17 12:57 U Oth Cocaine Metabols Negative (NEGATIVE) 10/02/17 12:57 U Cannabinoids Screen Negative (NEGATIVE) 10/02/17 12:57 - Hospital Course Hospital Course: PT IS FOR DISCHARGE TODAY -FOLLOW UP WITH ME IN THE OFFICE WITHIN 5-7 DAYS---CALL THE OFFICE FOR APPOINTMENT TIME -CONTINUE ALL OF YOUR HOME MEDICATIONS USUAL. -NEW PRESCRIPTIONS SENT TO YOUR PHARMACY INCLUDE: 1) AUGMENTIN 875 MG (ANTIBIOTIC)--TAKE 1 TABLET BY MOUTH EVERY 12 HOURS ( MORNING AND EVENING) FOR 7 DAYS. 2) MUCINEX 600 MG (EXPECTORANT, THIS WILL HELP WITH YOUR CONGESTION AND PHLEGM) --TAKE 1 TABLET BY MOUTH EVERY 12 HOURS (MORNING AND EVENING) FOR 7 DAYS Discharge Plan - Discharge Medications Prescriptions: Amoxicillin/Clavulanate [Augmentin 875 MG-125 MG] 1 tab PO Q12 #14 tab Guaifenesin [Mucinex] 600 mg PO Q12 PRN #14 tab.er.12h PRN Reason: CONGESTION - Follow Up Plan Condition: FAIR Disposition: HOME/ ROUTINE Instructions: Heart Failure, Adult (DC), Diabetes Diet , Diabetes Type 2 (DC) Additional Instructions: -FOLLOW UP WITH DR. AMOR IN THE OFFICE WITHIN 5-7 DAYS---CALL THE OFFICE FOR APPOINTMENT TIME -CONTINUE ALL OF YOUR HOME MEDICATIONS USUAL. -NEW PRESCRIPTIONS SENT TO YOUR PHARMACY INCLUDE: 1) AUGMENTIN 875 MG (ANTIBIOTIC)--TAKE 1 TABLET BY MOUTH EVERY 12 HOURS ( MORNING AND EVENING) FOR 7 DAYS. 2) MUCINEX 600 MG (EXPECTORANT, THIS WILL HELP WITH YOUR CONGESTION AND PHLEGM) --TAKE 1 TABLET BY MOUTH EVERY 12 HOURS (MORNING AND EVENING) FOR 7 DAYS. -FOR FURTHER QUESTIONS, CONTACT DR. AMOR. Referrals: Ousmane Amor MD [Staff Provider] -
== END 2017-10-03 13:57 | disposition home or self-care (01) ==
LOC: C.ER 20:02 → C.9E 21:33 → C.5S 22:31
PROVIDERS: ADMIT Internal Medicine; ATTEND Internal Medicine
DX: R07.9 Chest pain, unspecified (principal); E11.65 Type 2 diabetes mellitus with hyperglycemia; I11.0 Hypertensive heart disease with heart failure; I25.10 Atherosclerotic heart disease of native coronary artery without angina pectoris; E66.01 Morbid (severe) obesity due to excess calories; I48.91 Unspecified atrial fibrillation; I50.9 Heart failure, unspecified; J43.9 Emphysema, unspecified; J44.9 Chronic obstructive pulmonary disease, unspecified; E78.00 Pure hypercholesterolemia, unspecified; G47.33 Obstructive sleep apnea (adult) (pediatric); E03.9 Hypothyroidism, unspecified; Z86.73 Personal history of transient ischemic attack (TIA), and cerebral infarction without residual deficits; Z87.891 Personal history of nicotine dependence; Z87.01 Personal history of pneumonia (recurrent); Z95.0 Presence of cardiac pacemaker; Z95.1 Presence of aortocoronary bypass graft; Z95.5 Presence of coronary angioplasty implant and graft; Z95.810 Presence of automatic (implantable) cardiac defibrillator
CPT/HCPCS: 36415; 71045; 80053; 80162; 82948; 83880; 84484; 85025; 93005; 94660; 99285; G0378; G0480; J1940

== ENCOUNTER 2017-10-10 17:09 | Observation (INO) | payer MEDICARE, OTHER ==
[2017-10-10 17:09] VITALS: BMI 48.3
--- NOTE | 2017-10-10 17:40 | C.PDOC ---
History Of Present Illness 52 year old male, with past medical history of HTN, diabetes, TIA in 2008, CAD, CHF, quadruple bypass heart surgery in 2008, pacemaker, 4 stents, 3 MT (last MT in 2011), presents to ED for evaluation of chest pain and shortness of breath for the last 2 days. Pt states he was laying down, taking a nap today, when he suddenly felt a jolt in his chest which caused him to jump. Notes the pain in his chest still persists. He reports being seen here last week. Otherwise, denies headache, dizziness, weakness, numbness, cough, nausea, vomiting, abdominal pain, fever, chills, or any other associated symptoms at this time. Time Seen by Provider: 10/10/17 17:26 Chief Complaint (Nursing): Chest Pain History Per: Patient History/Exam Limitations: no limitations Onset/Duration Of Symptoms: Days Current Symptoms Are (Timing): Still Present Quality: "Pain" Associated Symptoms: denies: Nausea, Diaphoresis, Syncope Modifying Factors: None Exacerbating Factors: None Alleviating Factors: None Recent travel outside of the [place]: No Additional History Per: Patient Past Medical History Reviewed: Historical Data, Nursing Documentation, Vital Signs Vital Signs: Last Vital Signs Temp 986 F H 10/10/17 17:14 Pulse 92 H 10/10/17 17:14 Resp 20 10/10/17 17:14 BP 111/64 10/10/17 17:14 Pulse Ox 97 10/10/17 18:32 - Medical History PMH: Anemia, Anxiety, Atrial Fibrillation, Back Problems, CAD, Cardia Arrhythmia (AFIB), CHF, COPD, Diabetes, Deep Vein Thrombosis, Emphysema, Graves ' Disease, HTN, Hypercholesterolemia, Hypothyroidism, Peripheral Edema, Pneumonia, Sleep Apnea, TIA (2008) Denies: Chronic Kidney Disease Surgical History: CABG (2008), Coronary Stent (3 Stents Prior to Quadruple Bypass), Pacemaker - [facility] ASSISTANCE WITH RESPIRATORY VENTILATION, 24-96 HRS, CPAP (10/15/15) INJECT/INFUSE NEC (10/09/12) Family History: States: Unknown Family Hx - Social History Hx Tobacco Use: Yes Hx Alcohol Use: No Hx Substance Use: No - Immunization History Hx Tetanus Toxoid Vaccination: No Hx Influenza Vaccination: Yes Hx Pneumococcal Vaccination: Yes Review Of Systems Except As Marked, All Systems Reviewed And Found Negative. Constitutional: Negative for: Fever, Chills Cardiovascular: Positive for: Chest Pain. Negative for: Light Headedness Respiratory: Positive for: Shortness of Breath. Negative for: Cough Gastrointestinal: Negative for: Nausea, Vomiting, Abdominal Pain Neurological: Negative for: Weakness, Numbness, Headache, Dizziness Physical Exam - Physical Exam Appears: Non-toxic, No Acute Distress, Other (morbildy obese) Skin: Warm, Dry, Other (chronic venous stasis changes to lower legs) Head: Atraumatic, Normacephalic Eye(s): bilateral: Normal Inspection Oral Mucosa: Moist Neck: Normal ROM, Supple Cardiovascular: Rhythm Regular, No Murmur Respiratory: Normal Breath Sounds, No Rales, No Rhonchi, No Wheezing, Other ( moving air well) Gastrointestinal/Abdominal: Soft, No Tenderness Extremity: Normal ROM, Pedal Edema (R > L, +4), No Deformity Neurological/Psych: Oriented x3, Normal Speech ED Course And Treatment ECG: Interpreted By Me, Viewed By Me ECG Interpretation: No Changes From Prior Interpretation Of ECG: Ventricular paced rhythm at 88 bpm. Consistent with previous EKGs. O2 Sat by Pulse Oximetry: 97 (RA) Pulse Ox Interpretation: Normal Medical Decision Making Medical Decision Making: Plan: Blood work CXR Lasix Disposition Discussed With Dr.: Ousmane Amor Doctor Will See Patient In The: Hospital Counseled Patient/Family Regarding: Studies Performed, Diagnosis - Disposition Disposition: HOSPITALIZED Disposition Time: 18:32 Condition: GUARDED Forms: [facility] ([employer]) - Clinical Impression Clinical Impression: Congestive heart failure, Chest pain, Dyspnea - Scribe Statement The provider has reviewed the documentation as recorded by the Scribe KP All medical record entries made by the Scribe were at my direction and personally dictated by me. I have reviewed the chart and agree that the record accurately reflects my personal performance of the history, physical exam, medical decision making, and the department course for this patient. I have also personally directed, reviewed, and agree with the discharge instructions and disposition. Decision To Admit - Pt Status Changed To: Hospital Disposition Of: Observation - . Bed Request Type: Telemetry Admitting Physician: Ousmane Amor Patient Diagnosis: Congestive heart failure, Chest pain, Dyspnea
[2017-10-10 19:22] LABS: BASO # 0.1 K/uL (0.0-0.2); EOS # 0.2 K/uL (0.0-0.7); EOS % 2.7 % (0.0-4.0); HEMOGLOBIN 10.9 g/dL (12.0-18.0); LYMPH % 21.9 % (20.0-40.0); MEAN CELL VOLUME 80.9 fL (80.0-94.0); MEAN CORPUSCULAR HEMOGLOBIN 25.9 pg (27.0-31.0); MEAN PLATELET VOLUME 8.6 fL (7.2-11.7); MONO # 0.4 K/uL (0.0-0.8); MONO % 4.8 % (0.0-10.0); NEUT # 6.4 K/uL (1.8-7.0); NEUT % 69.6 % (50.0-75.0); NRBC % 0.1 % (0.0-2.0); RBC 4.22 Mil/uL (4.40-5.90); WHITE BLOOD COUNT 9.2 K/uL (4.8-10.8)
[2017-10-10 19:38] LABS: ALB/GLOB RATIO 1.1 (1.0-2.1); ALBUMIN 3.9 g/dL (3.5-5.0); ALT/SGPT 23 U/L (21-72); AST/SGOT 11 U/L (17-59); BLOOD UREA NITROGEN 28 mg/dL (9-20); CALCIUM 8.9 mg/dl (8.6-10.4); GFR AFRICAN-AMERICAN > 60; GFR NON-AFRICAN AMERICAN 58
[2017-10-10 19:46] LABS: B-TYPE NATRIURETIC PEPTIDE 411 pg/mL (0-900); CK-MB 0.62 ng/mL (0.0-3.38)
[2017-10-10 20:54] VITALS: RESP 20
[2017-10-10] MEDS: oxyCODONE 30 mg Immediate Release Tab PO PRN (20:58)
[2017-10-10] MEDS: (Novolin R) Insulin Human Regular 100 units/ml vial SC SCH ×2 (21:01→21:27)
--- NOTE | 2017-10-10 22:04 | RAD ---
Date of service: 10/10/2017 PROCEDURE: CHEST RADIOGRAPH, 1 VIEW HISTORY: chest pain COMPARISON: Comparison is made with 10/01/2017 FINDINGS: LUNGS: No evidence of new infiltrate or consolidation in the lungs. PLEURA: No pneumothorax or pleural fluid seen. CARDIOVASCULAR: The heart is normal in size. Left-sided pacemaker is again seen in place. OSSEOUS STRUCTURES: No significant abnormalities. VISUALIZED UPPER ABDOMEN: Normal. OTHER FINDINGS: None. IMPRESSION: No active disease.
[2017-10-11] MEDS: oxyCODONE 30 mg Immediate Release Tab PO PRN ×6 (01:10→22:54)
[2017-10-11] MEDS: Levothyroxine 100 MCG TAB PO SCH (05:32)
[2017-10-11 07:48] LABS: HEMOGLOBIN 10.8 g/dL (12.0-18.0); MEAN CELL VOLUME 81.8 fL (80.0-94.0); MEAN CORPUSCULAR HEMOGLOBIN 26.6 pg (27.0-31.0); MEAN CORPUSCULAR HGB CONC 32.5 g/dL (33.0-37.0); MEAN PLATELET VOLUME 8.8 fL (7.2-11.7); RBC 4.05 Mil/uL (4.40-5.90); RED CELL DISTRIBUTION WIDTH 15.5 % (11.5-14.5); WHITE BLOOD COUNT 6.3 K/uL (4.8-10.8)
[2017-10-11] MEDS: (Novolin R) Insulin Human Regular 100 units/ml vial SC SCH ×4 (07:49→22:53)
[2017-10-11 08:47] LABS: BLOOD UREA NITROGEN 26 mg/dL (9-20); CALCIUM 8.2 mg/dl (8.6-10.4); GFR AFRICAN-AMERICAN > 60; GFR NON-AFRICAN AMERICAN > 60
[2017-10-11 08:59] LABS: CK-MB 0.54 ng/mL (0.0-3.38)
[2017-10-11 17:33] VITALS: PULSE 85
[2017-10-11] MEDS ORDERED: Digoxin 125 mcg (0.125 mg) Tab PO SCH (18:00)
--- NOTE | 2017-10-11 22:08 | CP.PCM.HP ---
History of Present Illness - History of Present Illness History of Present Illness: CC: Chest pain, sob HPI: 52 year old AA morbidly obese male, with past medical history of HTN, diabetes, TIA in 2009, CAD, CHF, quadruple bypass heart surgery in 2009, pacemaker, 4 stents, 3 MA (last MA in 2011), [place], presents to ED for evaluation of chest pain and shortness of breath for the last 2 days. Pt states he was laying down, taking a nap today, when he suddenly felt a jolt in his chest which caused him to jump. Notes the pain in his chest still persists. He reports being seen here last week. Otherwise, denies headache, dizziness, weakness, numbness, cough, nausea, vomiting, abdominal pain, fever, chills, or any other associated symptoms at this time. Present on Admission - Present on Admission Any Indicators Present on Admission: Yes Review of Systems - Review of Systems Systems not reviewed;Unavailable: Acuity of Condition - Constitutional Constitutional: Fatigue, Increased Appetite, Malaise, Snoring - EENT Eyes: absent: As Per HPI, Blind Spots, Blurred Vision, Change in Vision, Decreased Night Vision, Diplopia, Discharge, Dry Eye, Exophthalmos, Floaters, Irritation, Itchy Eyes, Loss of Peripheral Vision, Pain, Photophobia, Requires Corrective Lenses, Sees Flashes, Spots in Vision, Tunnel Vision, Other Visual Disturbances, Loss of Vision, Other Nose/Mouth/Throat: Nasal Congestion. absent: As Per HPI, Epistaxis, Nasal Discharge, Nasal Obstruction, Nasal Trauma, Nose Pain, Post Nasal Drip, Sinus Pain, Sinus Pressure, Bleeding Gums, Change in Voice, Dental Pain, Dry Mouth, Dysphagia, Halitosis, Hoarsness, Lip Swelling, Mouth Lesions, Mouth Pain, Odynophagia, Sore Throat, Throat Swelling, Tongue Swelling, Facial Pain, Neck Pain, Neck Mass, Other - Cardiovascular Cardiovascular: Chest Pain, Chest Pain at Rest, Dyspnea, Leg Edema, Leg Ulcers, Lightheadedness - Respiratory Respiratory: Cough, Dyspnea. absent: As Per HPI, Hemoptysis, Dyspnea on Exertion, Wheezing, Snoring, Stridor, Pain on Inspiration, Chest Congestion, Excessive Mucous Production, Change in Mucous Color, Pain with Coughing, Other - Gastrointestinal Gastrointestinal: absent: As Per HPI, Abdominal Pain, Belching, Bloating, Change in Bowel Habits, Change in Stool Character, Coffee Ground Emesis, Constipation, Cramping, Diarrhea, Dyspepsia, Dysphagia, Early Satiety, Excessive Flatus, Fecal Incontinence, Heartburn, Hematemesis, Hematochezia, Loose Stools, Melena, Nausea, Odynophagia, Temesmus, Vomiting, Other Past Patient History - Infectious Disease Hx of Infectious Diseases: None - Past Medical History & Family History Past Medical History?: Yes - Past Social History Smoking Status: Light Smoker < 10 Cigarettes Daily - CARDIAC Hx Atrial Fibrillation: Yes Hx Cardia Arrhythmia: Yes (AFIB) Hx Congestive Heart Failure: Yes Hx Hypercholesterolemia: Yes Hx Hypertension: Yes Hx Pacemaker: Yes Hx Peripheral Edema: Yes - PULMONARY Hx Chronic Obstructive Pulmonary Disease (COPD): Yes Hx Emphysema: Yes Hx Pneumonia: Yes Hx Sleep Apnea: Yes - NEUROLOGICAL Hx Transient Ischemic Attacks (TIA): Yes (2008) - HEENT Hx HEENT Problems: No - RENAL Hx Chronic Kidney Disease: No - ENDOCRINE/METABOLIC Hx Hypothyroidism: Yes - HEMATOLOGICAL/ONCOLOGICAL Hx Anemia: Yes - INTEGUMENTARY Hx Dermatological Problems: No - MUSCULOSKELETAL/RHEUMATOLOGICAL Hx Falls: No - GASTROINTESTINAL Hx Gastrointestinal Disorders: No - GENITOURINARY/GYNECOLOGICAL Hx Genitourinary Disorders: No - PSYCHIATRIC Hx Anxiety: Yes Hx Substance Use: No - SURGICAL HISTORY Hx Coronary Artery Bypass Graft: Yes (2008) Hx Coronary Stent: Yes (3 Stents Prior to Quadruple Bypass) - ANESTHESIA Hx Anesthesia: Yes Hx Anesthesia Reactions: No Hx Malignant Hyperthermia: No Meds Allergies/Adverse Reactions: Allergies Allergy/AdvReac Type Severity Reaction Status Date / Time No Known Drug Allergies Allergy n/a Verified 10/01/17 20:20 Physical Exam - Constitutional Appears: No Acute Distress - Head Exam Head Exam: ATRAUMATIC, NORMAL INSPECTION, NORMOCEPHALIC - Eye Exam Eye Exam: EOMI, Normal appearance, PERRL Pupil Exam: NORMAL ACCOMODATION, PERRL - ENT Exam ENT Exam: Mucous Membranes Moist, Normal Exam - Respiratory Exam Respiratory Exam: Decreased Breath Sounds, Rales, Rhonchi - Cardiovascular Exam Cardiovascular Exam: REGULAR RHYTHM - GI/Abdominal Exam GI & Abdominal Exam: Normal Bowel Sounds, Soft. absent: Tenderness - Rectal Exam Rectal Exam: Deferred Results - Vital Signs Recent Vital Signs: Last Vital Signs Temp 97.7 F 10/11/17 15:00 Pulse 79 10/11/17 15:00 Resp 20 10/11/17 15:00 BP 164/93 H 10/11/17 17:29 Pulse Ox 100 10/11/17 15:00 - Labs Result Diagrams: 10/11/17 07:43 10/11/17 07:43 Labs: Laboratory Results - last 24 hr 10/11/17 10/11/17 10/11/17 07:43 07:43 07:43 WBC 6.3 RBC 4.05 L Hgb 10.8 L Hct 33.1 L MCV 81.8 MCH 26.6 L MCHC 32.5 L RDW 15.5 H Plt Count 156 MPV 8.8 Sodium 137 Potassium 3.9 Chloride 100 Carbon Dioxide 26 Anion Gap 15 BUN 26 H Creatinine 1.1 Est GFR ( Amer) > 60 Est GFR (Non-Af Amer) > 60 Random Glucose 240 H Calcium 8.2 L Magnesium 1.7 Total Creatine Kinase 70 CK-MB (Mass) 0.54 Troponin I < 0.0120 Assessment & Plan (1) Chest pain Status: Acute (2) Congestive heart failure Status: Acute Priority: High (3) Dyspnea Status: Acute (4) Cardiomyopathy Status: Active (5) Hypertension screening Status: Active (6) Hypertensive heart disease Status: Active (7) CHF exacerbation Status: Acute (8) HTN (hypertension) Status: Chronic Priority: Medium (9) Lupus (systemic lupus erythematosus) Status: Chronic (10) Morbid obesity with BMI of 45.0-49.9, adult Status: Chronic Priority: High (11) [place] and COPD overlap syndrome Status: Chronic (12) Type 2 diabetes mellitus Status: Chronic
--- NOTE | 2017-10-11 22:09 | CP.PCM.PN ---
Subjective - Date & Time of Evaluation Date of Evaluation: 10/11/17 Time of Evaluation: 16:00 - Subjective Subjective: Pt seen and examined at bedside Objective - Vital Signs/Intake and Output Vital Signs (last 24 hours): Temp Pulse Resp BP Pulse Ox 97.7 F 79 20 164/93 H 100 10/11/17 15:00 10/11/17 15:00 10/11/17 15:00 10/11/17 17:29 10/11/17 15:00 - Medications Medications: Current Medications Apixaban (Eliquis) 5 mg PO Q12 [facility] Last Admin: 10/11/17 09:20 Dose: 5 mg Carvedilol (Coreg) 25 mg PO BID [facility] Last Admin: 10/11/17 17:29 Dose: 25 mg Clopidogrel Bisulfate (Plavix) 75 mg PO DAILY [facility] Last Admin: 10/11/17 09:27 Dose: 75 mg Digoxin (Digoxin) 0.125 mg PO DAILY@1800 [facility] Last Admin: 10/11/17 17:30 Dose: 0.125 mg Furosemide (Lasix) 80 mg IVP Q12 [facility] Last Admin: 10/11/17 09:17 Dose: 80 mg Hydroxychloroquine Sulfate (Plaquenil) 200 mg PO BID [facility] PRN Reason: Protocol Last Admin: 10/11/17 17:29 Dose: 200 mg Insulin Human Regular (Novolin R) 0 unit SC ACHS [facility] PRN Reason: Protocol Last Admin: 10/11/17 17:30 Dose: 5 unit Levothyroxine Sodium (Synthroid) 100 mcg PO 0630 [facility] Last Admin: 10/11/17 05:32 Dose: 100 mcg Lisinopril (Zestril) 5 mg PO DAILY [facility] Last Admin: 10/11/17 09:28 Dose: 5 mg Metformin HCl (Glucophage) 500 mg PO BIDCC [facility] Last Admin: 10/11/17 17:31 Dose: Not Given Oxycodone HCl (Oxycodone Immediate Release Tab) 30 mg PO Q4H PRN PRN Reason: Pain, Mild (1-3) Last Admin: 10/11/17 17:53 Dose: 30 mg Rosuvastatin Calcium (Crestor) 40 mg PO HS [facility] Last Admin: 10/10/17 21:28 Dose: 40 mg Sitagliptin Phosphate (Januvia) 50 mg PO DAILY [facility] Last Admin: 10/11/17 09:27 Dose: 50 mg - Labs Labs: 10/11/17 07:43 10/11/17 07:43 Assessment and Plan (1) Chest pain Status: Acute (2) Congestive heart failure Status: Acute (3) Dyspnea Status: Acute (4) Cardiomyopathy Status: Active (5) Hypertension screening Status: Active (6) Hypertensive heart disease Status: Active (7) CHF exacerbation Status: Acute (8) HTN (hypertension) Status: Chronic (9) Lupus (systemic lupus erythematosus) Status: Chronic (10) Morbid obesity with BMI of 45.0-49.9, adult Status: Chronic (11) [place] and COPD overlap syndrome Status: Chronic (12) Type 2 diabetes mellitus Status: Chronic
--- NOTE | 2017-10-11 23:09 | CP.PCM.CON ---
History of Present Illness - History of Present Illness History of Present Illness: EPS consult Chart imaging and EKG reviewed This patient presented with chest pain and shortness of breath on a background of severe ischemic cardiomyopathy atrial fibrillation, a biventricular defibrilator implanted with a BIV paced rhythm Seemingly no active EP issues; would examine patient in am and interrogate the ICD (1800 [employer]) and will review old records in am Past Patient History - Infectious Disease Hx of Infectious Diseases: None - Past Medical History & Family History Past Medical History?: Yes - Past Social History Smoking Status: Light Smoker < 10 Cigarettes Daily - CARDIAC Hx Atrial Fibrillation: Yes Hx Cardia Arrhythmia: Yes (AFIB) Hx Congestive Heart Failure: Yes Hx Hypercholesterolemia: Yes Hx Hypertension: Yes Hx Pacemaker: Yes Hx Peripheral Edema: Yes - PULMONARY Hx Chronic Obstructive Pulmonary Disease (COPD): Yes Hx Emphysema: Yes Hx Pneumonia: Yes Hx Sleep Apnea: Yes - NEUROLOGICAL Hx Transient Ischemic Attacks (TIA): Yes (2008) - HEENT Hx HEENT Problems: No - RENAL Hx Chronic Kidney Disease: No - ENDOCRINE/METABOLIC Hx Hypothyroidism: Yes - HEMATOLOGICAL/ONCOLOGICAL Hx Anemia: Yes - INTEGUMENTARY Hx Dermatological Problems: No - MUSCULOSKELETAL/RHEUMATOLOGICAL Hx Falls: No - GASTROINTESTINAL Hx Gastrointestinal Disorders: No - GENITOURINARY/GYNECOLOGICAL Hx Genitourinary Disorders: No - PSYCHIATRIC Hx Anxiety: Yes Hx Substance Use: No - SURGICAL HISTORY Hx Coronary Artery Bypass Graft: Yes (2008) Hx Coronary Stent: Yes (3 Stents Prior to Quadruple Bypass) - ANESTHESIA Hx Anesthesia: Yes Hx Anesthesia Reactions: No Hx Malignant Hyperthermia: No Meds Allergies/Adverse Reactions: Allergies Allergy/AdvReac Type Severity Reaction Status Date / Time No Known Drug Allergies Allergy n/a Verified 10/01/17 20:20 - Medications Medications: Current Medications Apixaban (Eliquis) 5 mg PO Q12 [facility] Last Admin: 10/11/17 22:50 Dose: 5 mg Carvedilol (Coreg) 25 mg PO BID [facility] Last Admin: 10/11/17 17:29 Dose: 25 mg Clopidogrel Bisulfate (Plavix) 75 mg PO DAILY [facility] Last Admin: 10/11/17 09:27 Dose: 75 mg Digoxin (Digoxin) 0.125 mg PO DAILY@1800 [facility] Last Admin: 10/11/17 17:30 Dose: 0.125 mg Furosemide (Lasix) 80 mg IVP Q12 [facility] Last Admin: 10/11/17 22:53 Dose: Not Given Hydroxychloroquine Sulfate (Plaquenil) 200 mg PO BID [facility] PRN Reason: Protocol Last Admin: 10/11/17 17:29 Dose: 200 mg Insulin Human Regular (Novolin R) 0 unit SC ACHS [facility] PRN Reason: Protocol Last Admin: 10/11/17 22:53 Dose: Not Given Levothyroxine Sodium (Synthroid) 100 mcg PO 0630 [facility] Last Admin: 10/11/17 05:32 Dose: 100 mcg Lisinopril (Zestril) 5 mg PO DAILY [facility] Last Admin: 10/11/17 09:28 Dose: 5 mg Metformin HCl (Glucophage) 500 mg PO BIDCC [facility] Last Admin: 10/11/17 17:31 Dose: Not Given Oxycodone HCl (Oxycodone Immediate Release Tab) 30 mg PO Q4H PRN PRN Reason: Pain, Mild (1-3) Last Admin: 10/11/17 22:54 Dose: 30 mg Rosuvastatin Calcium (Crestor) 40 mg PO HS [facility] Last Admin: 10/11/17 22:50 Dose: 40 mg Sitagliptin Phosphate (Januvia) 50 mg PO DAILY [facility] Last Admin: 10/11/17 09:27 Dose: 50 mg Results - Vital Signs Recent Vital Signs: Last Vital Signs Temp 97.7 F 10/11/17 15:00 Pulse 79 10/11/17 15:00 Resp 20 10/11/17 15:00 BP 164/93 H 10/11/17 17:29 Pulse Ox 100 10/11/17 15:00 - Labs Result Diagrams: 10/11/17 07:43 10/11/17 07:43 Labs: Laboratory Results - last 24 hr 10/11/17 10/11/17 10/11/17 07:43 07:43 07:43 WBC 6.3 RBC 4.05 L Hgb 10.8 L Hct 33.1 L MCV 81.8 MCH 26.6 L MCHC 32.5 L RDW 15.5 H Plt Count 156 MPV 8.8 Sodium 137 Potassium 3.9 Chloride 100 Carbon Dioxide 26 Anion Gap 15 BUN 26 H Creatinine 1.1 Est GFR ( Amer) > 60 Est GFR (Non-Af Amer) > 60 Random Glucose 240 H Calcium 8.2 L Magnesium 1.7 Total Creatine Kinase 70 CK-MB (Mass) 0.54 Troponin I < 0.0120
--- NOTE | 2017-10-12 02:26 | CON ---
Copied To: Burke Bernstein MD Attending MD: Burke Bernstein MD DATE: 10/11/2017 HISTORY OF PRESENT ILLNESS: The patient is a 52-year-old male who has history of coronary artery disease, status post coronary artery bypass surgery, history of ICD placement, history of chronic obstructive lung disease as well as sleep apnea, and right-sided heart failure. The patient presented because of what he thinks was a defibrillator discharge. The patient stated that he was sleeping on a couch when his girlfriend noticed that he jumped out from sleep. The patient does not recall the electric shock itself but he assumed it may have happened while he was asleep. The patient has experienced a recent electric shock which gave him a horrible feeling at that point. The patient denies any recent palpitation, dizziness, or fainting. He denies any chest pain at this time or shortness of breath. He is still experiencing chronic leg swelling. SOCIAL HISTORY: Nonsmoker, nondrinker. MEDICATIONS: Coreg 25 mg twice a day, Crestor 40 mg once a day, digoxin 0.125 mg daily, Eliquis 5 mg twice a day, Glucophage 500 mg twice a day, Januvia 50 mg once daily, Lasix 80 mg intravenously twice a day, Plavix 75 mg once a day, Synthroid 100 mcg once a day, Zestril 5 mg once a day. REVIEW OF SYSTEMS: No nausea or vomiting. No recent syncope. No dizziness or palpitation, and no retrosternal chest pain. PHYSICAL EXAMINATION: GENERAL: The patient is a middle-aged male who does not appear to be in acute distress. VITAL SIGNS: Blood pressure 96/55, heart rate 79, temperature 97.7, respirations 20. HEENT: Pale conjunctivae. CHEST: Minimal rhonchi. HEART: S1 and S2 are regular. ABDOMEN: Soft. EXTREMITIES: 2+ pitting edema. EKG revealed atrial sensed, ventricular paced rhythm. LABORATORY DATA: Hemoglobin and hematocrit 10.8 and 33.1. White count and platelet count are within normal limit. SMA-7: Sodium 137, potassium 3.9, chloride 100, CO2 of 26, glucose 140, BUN 26, creatinine 1.9. Two sets of troponin are negative. difficulty with the [place] database. Chest x-ray report: No active disease. x-ray was not remarkable. Biventricular pacemaker with an ICD noted. The most recent echo was in 08/2015 and it revealed mild concentric LVH with normal ejection fraction and estimated right ventricular systolic pressure of 50 to 60 mmHg. ASSESSMENT: 1. Coronary artery disease, status post coronary artery bypass surgery. 2. History of biventricular pacemaker/ICD with questionable discharge from the defibrillator. 3. Mild anemia. 4. Uncontrolled diabetes mellitus. 5. Hypertension. 6. Questionable history of paroxysmal atrial fibrillation. 7. Sleep apnea. RECOMMENDATIONS: Continue current Coreg 25 mg twice a day, Crestor 40 mg once a day, digoxin 0.125 mg daily, Eliquis 5 mg twice a day, Glucophage 500 mg twice a day, Plavix 75 mg once a day, Synthroid 100 mcg once a day, Zestril 5 mg once a day[address] Dr. Cantu was called for elective physiology evaluation, and I will discuss with Dr. Cantu, the future need of the ICD as the patient is known to me to have reasonable ejection fraction and however history of paroxysmal monomorphic tachycardia may have justified the placement of ICD in a different facility and those records are not available to me. Burke Bernstein MD
[2017-10-12] MEDS: oxyCODONE 30 mg Immediate Release Tab PO PRN ×3 (03:07→11:03)
[2017-10-12 04:05] LABS: BARBITURATES, UR NEGATIVE (NEGATIVE); BENZODIAZEPINES, UR NEGATIVE (NEGATIVE); PHENCYCLIDINE, UR NEGATIVE (NEGATIVE)
[2017-10-12 04:16] LABS: OPIATES, UR POSITIVE (NEGATIVE)
[2017-10-12] MEDS: Levothyroxine 100 MCG TAB PO SCH (06:27)
[2017-10-12] MEDS: (Novolin R) Insulin Human Regular 100 units/ml vial SC SCH ×2 (07:42→11:30)
[2017-10-12 08:25] VITALS: PULSE 93
[2017-10-12 08:40] VITALS: TEMP 98.4; O2SAT 98
[2017-10-12 09:28] VITALS: BP 157/73
--- NOTE | 2017-10-12 12:26 | CP.PCM.PN ---
Subjective - Date & Time of Evaluation Date of Evaluation: 10/12/17 Time of Evaluation: 12:26 Objective - Vital Signs/Intake and Output Vital Signs (last 24 hours): Temp Pulse Resp BP Pulse Ox 98.4 F 93 H 20 157/73 H 98 10/12/17 07:10 10/12/17 07:45 10/12/17 07:10 10/12/17 09:27 10/12/17 07:10 Intake and Output: 10/12/17 10/12/17 06:59 18:59 Intake Total 370 Output Total 800 Balance -430 - Medications Medications: Current Medications Apixaban (Eliquis) 5 mg PO Q12 [facility] Last Admin: 10/12/17 09:28 Dose: 5 mg Carvedilol (Coreg) 25 mg PO BID [facility] Last Admin: 10/12/17 09:26 Dose: 25 mg Clopidogrel Bisulfate (Plavix) 75 mg PO DAILY [facility] Last Admin: 10/12/17 09:27 Dose: 75 mg Digoxin (Digoxin) 0.125 mg PO DAILY@1800 [facility] Last Admin: 10/11/17 17:30 Dose: 0.125 mg Furosemide (Lasix) 80 mg IVP Q12 [facility] Last Admin: 10/12/17 09:27 Dose: 80 mg Hydroxychloroquine Sulfate (Plaquenil) 200 mg PO BID [facility] PRN Reason: Protocol Last Admin: 10/12/17 09:29 Dose: 200 mg Insulin Human Regular (Novolin R) 0 unit SC ACHS [facility] PRN Reason: Protocol Last Admin: 10/12/17 07:42 Dose: 3 unit Levothyroxine Sodium (Synthroid) 100 mcg PO 0630 [facility] Last Admin: 10/12/17 06:27 Dose: 100 mcg Lisinopril (Zestril) 5 mg PO DAILY [facility] Last Admin: 10/12/17 09:28 Dose: 5 mg Metformin HCl (Glucophage) 500 mg PO BIDCC [facility] Last Admin: 10/12/17 09:26 Dose: Not Given Oxycodone HCl (Oxycodone Immediate Release Tab) 30 mg PO Q4H PRN PRN Reason: Pain, Mild (1-3) Last Admin: 10/12/17 11:03 Dose: 30 mg Rosuvastatin Calcium (Crestor) 40 mg PO HS [facility] Last Admin: 10/11/17 22:50 Dose: 40 mg Sitagliptin Phosphate (Januvia) 50 mg PO DAILY [facility] Last Admin: 10/12/17 09:27 Dose: 50 mg - Labs Labs: 10/11/17 07:43 10/11/17 07:43
--- NOTE | 2017-10-12 17:20 | PN ---
Copied To: Burke Bernstein MD Attending MD: Burke Bernstein MD DATE: 10/12/2017 SUBJECTIVE: The patient denies any chest pain, palpitation, or dizziness. No reported ventricular arrhythmia. The patient refused his lab work yesterday and he is still refusing it today. The patient was evaluated by Dr. Cantu, the patient intake representative and the plan is to perform ICD analysis. PHYSICAL EXAMINATION: VITAL SIGNS: Blood pressure 157/73, heart rate 93, temperature 98.4, respirations 20. HEENT: Normocephalic. CHEST: Clear. HEART: S1 and S2 regular. EXTREMITIES: 2+ pitting edema. ASSESSMENT: 1. Questionable discharge from the defibrillator. 2. Biventricular pacemaker. 3. Diastolic heart failure. 4. Sleep apnea. 5. Secondary pulmonary hypertension. 6. Coronary artery disease, status post coronary artery bypass surgery. RECOMMENDATIONS: Continue Coreg 25 mg twice a day, Crestor 40 mg once a day, digoxin was started 0.125 mg daily, continue Eliquis 5 mg twice a day, Glucophage 500 mg twice a day, Lasix 80 mg intravenously twice a day, Zestril 5 mg once a day, Synthroid 100 mcg once a day, Plavix 75 mg once a day. Awaiting ICD analysis. Today, case was discussed with the [employer]. Burke Bernstein MD
--- NOTE | 2017-10-12 20:49 | CP.PCM.DIS ---
Provider - Provider Date of Admission: 10/10/17 18:34 Attending physician: Ousmane Amor MD Diagnosis - Discharge Diagnosis (1) Chest pain Status: Acute (2) Congestive heart failure Status: Acute Priority: High (3) Dyspnea Status: Acute (4) Cardiomyopathy Status: Active (5) Hypertension screening Status: Active (6) Hypertensive heart disease Status: Active (7) CHF exacerbation Status: Acute (8) HTN (hypertension) Status: Chronic Priority: Medium (9) Lupus (systemic lupus erythematosus) Status: Chronic (10) Morbid obesity with BMI of 45.0-49.9, adult Status: Chronic Priority: High (11) [place] and COPD overlap syndrome Status: Chronic (12) Type 2 diabetes mellitus Status: Chronic Hospital Course - Lab Results Lab Results: Most Recent Lab Values WBC 6.3 K/uL (4.8-10.8) 10/11/17 07:43 RBC 4.05 Mil/uL (4.40-5.90) L 10/11/17 07:43 Hgb 10.8 g/dL (12.0-18.0) L 10/11/17 07:43 Hct 33.1 % (35.0-51.0) L 10/11/17 07:43 MCV 81.8 fL (80.0-94.0) 10/11/17 07:43 MCH 26.6 pg (27.0-31.0) L 10/11/17 07:43 MCHC 32.5 g/dL (33.0-37.0) L 10/11/17 07:43 RDW 15.5 % (11.5-14.5) H 10/11/17 07:43 Plt Count 156 K/uL (130-400) 10/11/17 07:43 MPV 8.8 fL (7.2-11.7) 10/11/17 07:43 Neut % (Auto) 69.6 % (50.0-75.0) 10/10/17 19:18 Lymph % (Auto) 21.9 % (20.0-40.0) 10/10/17 19:18 [place] % (Auto) 4.8 % (0.0-10.0) 10/10/17 19:18 Eos % (Auto) 2.7 % (0.0-4.0) 10/10/17 19:18 Baso % (Auto) 1.0 % (0.0-2.0) 10/10/17 19:18 Neut # (Auto) 6.4 K/uL (1.8-7.0) 10/10/17 19:18 Lymph # (Auto) 2.0 K/uL (1.0-4.3) 10/10/17 19:18 [place] # (Auto) 0.4 K/uL (0.0-0.8) 10/10/17 19:18 Eos # (Auto) 0.2 K/uL (0.0-0.7) 10/10/17 19:18 Baso # (Auto) 0.1 K/uL (0.0-0.2) 10/10/17 19:18 Sodium 137 mmol/L (132-148) 10/11/17 07:43 Potassium 3.9 mmol/L (3.6-5.2) 10/11/17 07:43 Chloride 100 mmol/L (98-107) 10/11/17 07:43 Carbon Dioxide 26 mmol/L (22-30) 10/11/17 07:43 Anion Gap 15 (10-20) 10/11/17 07:43 BUN 26 mg/dL (9-20) H 10/11/17 07:43 Creatinine 1.1 mg/dL (0.8-1.5) 10/11/17 07:43 Est GFR ( Amer) > 60 10/11/17 07:43 Est GFR (Non-Af Amer) > 60 10/11/17 07:43 POC Glucose (mg/dL) 235 mg/dL (65-110) H 10/12/17 06:33 Random Glucose 240 mg/dL (75-110) H 10/11/17 07:43 Calcium 8.2 mg/dl (8.6-10.4) L 10/11/17 07:43 Magnesium 1.7 mg/dL (1.6-2.3) 10/11/17 07:43 Total Bilirubin 0.4 mg/dL (0.2-1.3) 10/10/17 19:18 AST 11 U/L (17-59) L D 10/10/17 19:18 ALT 23 U/L (21-72) 10/10/17 19:18 Alkaline Phosphatase 145 U/L (38-126) H 10/10/17 19:18 Total Creatine Kinase 70 U/L (55-170) 10/11/17 07:43 CK-MB (Mass) 0.54 ng/mL (0.0-3.38) 10/11/17 07:43 Troponin I < 0.0120 ng/mL (0.00-0.120) 10/11/17 07:43 NT-Pro-B Natriuret Pep 411 pg/mL (0-900) 10/10/17 19:18 Total Protein 7.4 g/dL (6.3-8.3) 10/10/17 19:18 Albumin 3.9 g/dL (3.5-5.0) 10/10/17 19:18 Globulin 3.5 gm/dL (2.2-3.9) 10/10/17 19:18 Albumin/Globulin Ratio 1.1 (1.0-2.1) 10/10/17 19:18 Urine Opiates Screen Positive (NEGATIVE) H 10/12/17 03:44 Urine Methadone Screen Negative (NEGATIVE) 10/12/17 03:44 Ur Barbiturates Screen Negative (NEGATIVE) 10/12/17 03:44 Ur Phencyclidine Scrn Negative (NEGATIVE) 10/12/17 03:44 Ur Amphetamines Screen Negative (NEGATIVE) 10/12/17 03:44 U Benzodiazepines Scrn Negative (NEGATIVE) 10/12/17 03:44 U Oth Cocaine Metabols Negative (NEGATIVE) 10/12/17 03:44 U Cannabinoids Screen Negative (NEGATIVE) 10/12/17 03:44 Discharge Exam - Head Exam Head Exam: ATRAUMATIC, NORMAL INSPECTION, NORMOCEPHALIC Discharge Plan - Follow Up Plan Condition: GUARDED Disposition: AGAINST MEDICAL ADVICE
--- NOTE | 2017-10-13 11:36 | DS ---
Copied To: Ousmane Amor MD Attending MD: Ousmane Amor MD ADMISSION DIAGNOSIS: Congestive heart failure exacerbation. DISCHARGE DIAGNOSES: Acute exacerbation of congestive heart failure due to noncompliance, type 2 diabetes, obstructive sleep apnea, lumbar disk disease, hypertension and morbid obesity. HISTORY OF PRESENT ILLNESS: This is a 52-year-old male with history of multiple medical problems including coronary artery disease, hypertension, hyperlipidemia, sleep apnea, CABG in the past, and angioplasty later on due to reocclusion. The patient also had shock during his exacerbation at home. He was admitted. He was diuresed, daily body weight. Cardiology evaluation was on and the patient's condition was stabilized. He was diuresed. The patient is feeling better and he is here for discharge. LABORATORY DATA: Urine drug screen is positive for opiates. He is taking opiates. WBC 8.3, hemoglobin 10.8, hematocrit 33.1, platelets 156. Chemistry: Sodium 137, potassium 3.9, chloride 100, bicarb 26, BUN 26, creatinine 1.1. CONDITION UPON DISCHARGE: Stable. The patient will be followed by . Ousmane Amor MD
== END 2017-10-12 12:37 | disposition left against medical advice (07) ==
LOC: C.ER 17:09 → C.9E 18:34 → C.6T 19:09
PROVIDERS: ADMIT Internal Medicine; ATTEND Internal Medicine
DX: I11.0 Hypertensive heart disease with heart failure (principal); I50.31 Acute diastolic (congestive) heart failure; D64.9 Anemia, unspecified; E03.9 Hypothyroidism, unspecified; E11.65 Type 2 diabetes mellitus with hyperglycemia; E66.01 Morbid (severe) obesity due to excess calories; E78.00 Pure hypercholesterolemia, unspecified; E78.5 Hyperlipidemia, unspecified; G47.33 Obstructive sleep apnea (adult) (pediatric); I25.10 Atherosclerotic heart disease of native coronary artery without angina pectoris; I25.2 Old myocardial infarction; I25.5 Ischemic cardiomyopathy; I27.29 Other secondary pulmonary hypertension; I48.91 Unspecified atrial fibrillation; J44.9 Chronic obstructive pulmonary disease, unspecified; M32.9 Systemic lupus erythematosus, unspecified; Z68.42 Body mass index [BMI] 45.0-49.9, adult; Z86.73 Personal history of transient ischemic attack (TIA), and cerebral infarction without residual deficits; Z87.01 Personal history of pneumonia (recurrent); Z87.891 Personal history of nicotine dependence; M51.9 Unspecified thoracic, thoracolumbar and lumbosacral intervertebral disc disorder; Z91.19 Patient's noncompliance with other medical treatment and regimen; Z95.0 Presence of cardiac pacemaker; Z95.1 Presence of aortocoronary bypass graft; Z95.5 Presence of coronary angioplasty implant and graft; Z95.810 Presence of automatic (implantable) cardiac defibrillator
CPT/HCPCS: 36415; 71045; 80048; 80053; 82948; 83735; 83880; 84484; 85025; 85027; 93005; 96374; 99285; G0378; G0480; J1940

== ENCOUNTER 2017-10-17 09:59 | Observation (INO) | payer MEDICARE, OTHER ==
[2017-10-17 09:59] VITALS: BMI 48.3
[2017-10-17] MEDS ORDERED: Aspirin 325 mg EC Tablets PO STA (10:49)
[2017-10-17] MEDS ORDERED: Aspirin 325 mg EC Tablets PO ONE (11:00)
[2017-10-17 11:01] LABS: BASO # 0.1 K/uL (0.0-0.2); BASO % 1.7 % (0.0-2.0); EOS # 0.2 K/uL (0.0-0.7); EOS % 2.4 % (0.0-4.0); HEMOGLOBIN 10.6 g/dL (12.0-18.0); LYMPH % 25.3 % (20.0-40.0); MEAN CORPUSCULAR HEMOGLOBIN 26.2 pg (27.0-31.0); MEAN CORPUSCULAR HGB CONC 32.3 g/dL (33.0-37.0); MEAN PLATELET VOLUME 8.6 fL (7.2-11.7); MONO # 0.5 K/uL (0.0-0.8); MONO % 5.9 % (0.0-10.0); NEUT # 5.2 K/uL (1.8-7.0); NEUT % 64.7 % (50.0-75.0); NRBC % 0.2 % (0.0-2.0); RBC 4.06 Mil/uL (4.40-5.90); RED CELL DISTRIBUTION WIDTH 15.7 % (11.5-14.5)
--- NOTE | 2017-10-17 11:04 | C.PDOC ---
History Of Present Illness 52 year old male, with past medical history of CHF, pacemaker defibrillator, quadruple bypass surgery, presents to ED for evaluation of episode of chest pain , and shortness of breath several hours ago while at a store. Notes the episode lasted 5-6 minutes which resolved after he stopped exerting himself. Notes pain has been intermittent since then. He reports mild chest pain at this time, but shortness of breath has improved. Also reports that his legs have been more swollen than usual. Notes he is compliant with his Lasix. Denies increased salt or fluid intake. Denies any other symptoms at this time. Time Seen by Provider: 10/17/17 10:26 Chief Complaint (Nursing): Chest Pain History Per: Patient History/Exam Limitations: no limitations Onset/Duration Of Symptoms: Days Current Symptoms Are (Timing): Still Present Quality: "Pain" Associated Symptoms: denies: Nausea, Syncope Modifying Factors: None Exacerbating Factors: None Alleviating Factors: None Additional History Per: Patient Past Medical History Reviewed: Historical Data, Nursing Documentation, Vital Signs Vital Signs: Last Vital Signs Temp 97.6 F 10/17/17 14:30 Pulse 78 10/17/17 14:30 Resp 18 10/17/17 14:30 BP 102/64 10/17/17 14:30 Pulse Ox 97 10/17/17 14:30 - Medical History PMH: Anemia, Anxiety, Atrial Fibrillation, Back Problems, CAD, Cardia Arrhythmia (AFIB), CHF, COPD, Diabetes, Deep Vein Thrombosis, Emphysema, Graves ' Disease, HTN, Hypercholesterolemia, Hypothyroidism, Peripheral Edema, Pneumonia, Sleep Apnea, TIA (2008) Denies: Chronic Kidney Disease Surgical History: CABG (2008), Coronary Stent (3 Stents Prior to Quadruple Bypass), Pacemaker - [facility] Procedures ASSISTANCE WITH RESPIRATORY VENTILATION, 24-96 HRS, CPAP (10/15/15) INJECT/INFUSE NEC (10/09/12) Family History: States: Unknown Family Hx - Social History Hx Tobacco Use: Yes Hx Alcohol Use: No Hx Substance Use: No - Immunization History Hx Tetanus Toxoid Vaccination: No Hx Influenza Vaccination: Yes Hx Pneumococcal Vaccination: Yes Review Of Systems Except As Marked, All Systems Reviewed And Found Negative. Constitutional: Negative for: Fever, Chills Cardiovascular: Positive for: Chest Pain, Edema. Negative for: Palpitations, Light Headedness Respiratory: Positive for: SOB with Excertion. Negative for: Cough Gastrointestinal: Negative for: Nausea, Vomiting, Abdominal Pain Physical Exam - Physical Exam Appears: Non-toxic, No Acute Distress, Other (morbidly obese) Skin: Normal Color, Warm, Dry, Other (well healed mid line incision to mid chest region) Head: Atraumatic, Normacephalic Eye(s): bilateral: Normal Inspection Oral Mucosa: Moist Neck: Supple Chest: Symmetrical, Other (pacemaker to left chest wall) Cardiovascular: Rhythm Regular Respiratory: Normal Breath Sounds, No Rales, No Rhonchi, No Wheezing Gastrointestinal/Abdominal: Soft, No Tenderness Extremity: Normal ROM, Pedal Edema (3+ pitting edema to bilateral lower extremities, R > L), Other (vascular insufficiency to bilateral legs) Neurological/Psych: Oriented x3, Normal Speech ED Course And Treatment - Laboratory Results Result Diagrams: 10/17/17 10:57 10/17/17 10:57 ECG: Interpreted By Me ECG Rhythm: V Paced Interpretation Of ECG: atrial sensed, ventricular paced rhythm, rate 84, no concordant ST changes, QTc 496, IA 160 Rate From EC O2 Sat by Pulse Oximetry: 95 (RA) Pulse Ox Interpretation: Normal - Radiology CXR: Interpreted by Me CXR Interpretation: Yes: Other (Pulmonary vascular congestion) Medical Decision Making Medical Decision Making: Plan: Blood work CXR EKG Aspirin Nitroglycerin Patient given 324mg ASA and SL nitro x1. Labs and CXR done. Vascular congestion noted on CXR. Lasix 40mg IVP given. Case discussed with patient's PMD Dr. Amor who accepts patient for admission. Results and plan discussed with patient. Disposition - Disposition Disposition: HOSPITALIZED Disposition Time: 12:34 Condition: STABLE - Clinical Impression Clinical Impression: Chest pain, CHF exacerbation - Scribe Statement The provider has reviewed the documentation as recorded by the Scribe KP All medical record entries made by the Scribe were at my direction and personally dictated by me. I have reviewed the chart and agree that the record accurately reflects my personal performance of the history, physical exam, medical decision making, and the department course for this patient. I have also personally directed, reviewed, and agree with the discharge instructions and disposition.
[2017-10-17 11:14] LABS: INR 1.3; PROTHROMBIN TIME 14.7 SECONDS (9.7-12.2)
[2017-10-17 11:21] LABS: ALBUMIN 3.7 g/dL (3.5-5.0); ALT/SGPT 25 U/L (21-72); AST/SGOT 15 U/L (17-59); BLOOD UREA NITROGEN 32 mg/dL (9-20); CALCIUM 8.8 mg/dl (8.6-10.4); GFR AFRICAN-AMERICAN > 60; GFR NON-AFRICAN AMERICAN 58
[2017-10-17 11:28] LABS: B-TYPE NATRIURETIC PEPTIDE 555 pg/mL (0-900)
[2017-10-17] MEDS ORDERED: guaiFENesin 600 mg ER Tab PO PRN (13:47)
--- NOTE | 2017-10-17 14:42 | RAD ---
Chest x-ray single frontal view History: Chest pain. Comparison: 10/10/2017 Findings: Moderate venous congestion. Patchy increased markings at the left lung base. Small left pleural effusion. Bilateral hilar prominence. Enlarged ectatic aorta with cardiomegaly. Left sided pacer device. Degenerative changes in the spine. Impression: Moderate venous congestion. Patchy increased markings at the left lung base. Small left pleural effusion. Bilateral hilar prominence. Enlarged ectatic aorta with cardiomegaly. Left sided pacer device. Degenerative changes in the spine.
[2017-10-17] MEDS: oxyCODONE 30 mg Immediate Release Tab PO PRN ×2 (16:32→20:55)
[2017-10-17] MEDS: (Novolin R) Insulin Human Regular 100 units/ml vial SC SCH ×2 (17:25→21:03)
[2017-10-17] MEDS: Digoxin 125 mcg (0.125 mg) Tab PO SCH (17:32)
[2017-10-17 17:48] LABS: CK-MB 0.41 ng/mL (0.0-3.38)
[2017-10-17] MEDS ORDERED: (Novolin R) Insulin Human Regular 100 units/ml vial SC ONE (18:54)
--- NOTE | 2017-10-17 21:57 | CP.PCM.HP ---
Past Patient History - Infectious Disease Hx of Infectious Diseases: None - Past Medical History & Family History Past Medical History?: Yes - Past Social History Smoking Status: Light Smoker < 10 Cigarettes Daily - CARDIAC Hx Atrial Fibrillation: Yes Hx Cardia Arrhythmia: Yes (AFIB) Hx Congestive Heart Failure: Yes Hx Hypercholesterolemia: Yes Hx Hypertension: Yes Hx Pacemaker: Yes Hx Peripheral Edema: Yes - PULMONARY Hx Chronic Obstructive Pulmonary Disease (COPD): Yes Hx Emphysema: Yes Hx Pneumonia: Yes Hx Sleep Apnea: Yes - NEUROLOGICAL Hx Transient Ischemic Attacks (TIA): Yes (2008) - HEENT Hx HEENT Problems: No - RENAL Hx Chronic Kidney Disease: No - ENDOCRINE/METABOLIC Hx Hypothyroidism: Yes - HEMATOLOGICAL/ONCOLOGICAL Hx Anemia: Yes - INTEGUMENTARY Hx Dermatological Problems: No - MUSCULOSKELETAL/RHEUMATOLOGICAL Hx Falls: No - GASTROINTESTINAL Hx Gastrointestinal Disorders: No - GENITOURINARY/GYNECOLOGICAL Hx Genitourinary Disorders: No - PSYCHIATRIC Hx Anxiety: Yes Hx Substance Use: No - SURGICAL HISTORY Hx Coronary Artery Bypass Graft: Yes (2008) Hx Coronary Stent: Yes (3 Stents Prior to Quadruple Bypass) - ANESTHESIA Hx Anesthesia: Yes Hx Anesthesia Reactions: No Hx Malignant Hyperthermia: No Meds Allergies/Adverse Reactions: Allergies Allergy/AdvReac Type Severity Reaction Status Date / Time No Known Drug Allergies Allergy n/a Verified 10/01/17 20:20 Results - Vital Signs Recent Vital Signs: Last Vital Signs Temp 97.7 F 10/17/17 15:53 Pulse 82 10/17/17 15:53 Resp 20 10/17/17 15:53 BP 128/80 10/17/17 17:33 Pulse Ox 100 10/17/17 19:00 - Labs Result Diagrams: 10/17/17 10:57 10/17/17 10:57 Labs: Laboratory Results - last 24 hr 10/17/17 10/17/17 10/17/17 10:57 10:57 10:57 WBC 8.0 RBC 4.06 L Hgb 10.6 L Hct 32.9 L MCV 81.0 MCH 26.2 L MCHC 32.3 L RDW 15.7 H Plt Count 178 MPV 8.6 Neut % (Auto) 64.7 Lymph % (Auto) 25.3 Emanuel % (Auto) 5.9 Eos % (Auto) 2.4 Baso % (Auto) 1.7 Neut # (Auto) 5.2 Lymph # (Auto) 2.0 Emanuel # (Auto) 0.5 Eos # (Auto) 0.2 Baso # (Auto) 0.1 PT 14.7 H INR 1.3 APTT 33 Sodium 139 Potassium 4.2 Chloride 98 Carbon Dioxide 28 Anion Gap 17 BUN 32 H Creatinine 1.3 Est GFR ( Amer) > 60 Est GFR (Non-Af Amer) 58 Random Glucose 288 H Calcium 8.8 Total Bilirubin 0.4 AST 15 L D ALT 25 Alkaline Phosphatase 126 Total Creatine Kinase CK-MB (Mass) Troponin I 0.0120 NT-Pro-B Natriuret Pep 555 Total Protein 7.6 Albumin 3.7 Globulin 3.9 Albumin/Globulin Ratio 1.0 10/17/17 17:14 WBC RBC Hgb Hct MCV MCH MCHC RDW Plt Count MPV Neut % (Auto) Lymph % (Auto) Emanuel % (Auto) Eos % (Auto) Baso % (Auto) Neut # (Auto) Lymph # (Auto) Emanuel # (Auto) Eos # (Auto) Baso # (Auto) PT INR APTT Sodium Potassium Chloride Carbon Dioxide Anion Gap BUN Creatinine Est GFR ( Amer) Est GFR (Non-Af Amer) Random Glucose Calcium Total Bilirubin AST ALT Alkaline Phosphatase Total Creatine Kinase 141 CK-MB (Mass) 0.41 Troponin I < 0.0120 NT-Pro-B Natriuret Pep Total Protein Albumin Globulin Albumin/Globulin Ratio
[2017-10-18] MEDS: oxyCODONE 30 mg Immediate Release Tab PO PRN ×6 (00:44→22:30)
--- NOTE | 2017-10-18 07:21 | HP ---
Copied To: Ousmane Amor MD Attending MD: Ousmane Amor MD CHIEF COMPLAINT: Chest pain since this morning. HISTORY OF PRESENT ILLNESS: This is a 52-year-old -[place] male, well known to me with history of morbid obesity, coronary artery disease, status post diabetes, status post angioplasty, congestive heart failure, he has an AICD in place, type 2 diabetes, systemic lupus erythematosus, allergic rhinitis, hypothyroidism, who is a nonsmoker, nonalcoholic, no drug abuse. The patient came to the emergency room because of chest pain and shortness of breath, that started early this morning for a few hours. According to him, each episode lasted over a period of five to six minutes, relieved by rest, not associated with diaphoresis or dizziness, along with that he was having generalized weakness. He denies any history of polyuria, polydipsia, or polyphagia. He has history of hematuria, polyuria, and HIV. There is no history of trauma, fall, or loss of consciousness. He denies any seizure-like activity. He has tingling and numbness in the feet. He denies any history of trauma, fall, or loss of consciousness. No history of seizure-like activity. PAST MEDICAL HISTORY: Morbid obesity, congestive heart failure, coronary artery disease, lupus erythematosus, hypertension, hypothyroidism, and atrial fibrillation. SOCIAL HISTORY: Positive smoking, occasional ETOH user, currently he denies street drugs. ALLERGIES: NO KNOWN ALLERGIES. CURRENT MEDICATIONS: Synthroid, lisinopril, Plaquenil, Mucinex, Lasix, Plavix, Digoxin, Coreg, Lipitor, Eliquis, oxycodone, , Januvia, Phenergan, and nitroglycerin. PHYSICAL EXAMINATION: GENERAL: A middle-aged male, in moderate respiratory distress with chest pain. VITAL SIGNS: Blood pressure 128/80, pulse 82, respiratory rate 20, and temperature 97.7. SKIN: The patient has extreme degree of chronic changes in both lower legs with scarring, erythema, hyperpigmentation, and edema. HEENT: Atraumatic, normocephalic. Positive pallor. Negative jaundice. Extraocular movements are intact. NECK: Supple. Positive JVD. Negative thyromegaly. Negative carotid bruits. LUNGS: Chest wall bilateral symmetrical expansion with positive gynecomastia and he has left infraclavicular AICD. Bilateral basal rales. Decreased air entry. CVS: PMI not localized. S1, S2 2/6 ejection systolic murmur at the apex. ASSESSMENT: 1. Chest pain, rule out myocardial infarction in a patient with history of coronary artery disease and coronary artery bypass grafting. 2. Congestive heart failure exacerbation. 3. Chronic anemia. 4. Diabetes. 5. Hypertension. PLAN: Admit. Detailed orders written. Seen and examined. Ousmane Amor MD
[2017-10-18] MEDS: (Novolin R) Insulin Human Regular 100 units/ml vial SC SCH ×4 (08:30→21:55)
[2017-10-18] MEDS ORDERED: Levothyroxine 100 MCG TAB PO SCH ×2 (10:00)
[2017-10-18 14:15] LABS: BLOOD UREA NITROGEN 28 mg/dL (9-20); CALCIUM 9.1 mg/dl (8.6-10.4); GFR AFRICAN-AMERICAN > 60; GFR NON-AFRICAN AMERICAN > 60
[2017-10-18 14:25] LABS: CK-MB 0.44 ng/mL (0.0-3.38)
[2017-10-18 15:59] VITALS: O2SAT 99
[2017-10-18] MEDS: Digoxin 125 mcg (0.125 mg) Tab PO SCH (17:13)
[2017-10-18 17:15] VITALS: PULSE 82
--- NOTE | 2017-10-18 20:53 | CP.PCM.PN ---
Objective - Vital Signs/Intake and Output Vital Signs (last 24 hours): Temp Pulse Resp BP Pulse Ox 98 F 81 20 164/94 H 99 10/18/17 15:58 10/18/17 20:00 10/18/17 15:58 10/18/17 17:13 10/18/17 15:58 Intake and Output: 10/18/1718 18:59 06:59 Output Total 500 Balance -500 - Medications Medications: Current Medications Apixaban (Eliquis) 5 mg PO Q12 [facility] Last Admin: 10/18/17 09:35 Dose: 5 mg Carvedilol (Coreg) 25 mg PO BID [facility] Last Admin: 10/18/17 17:12 Dose: 25 mg Clopidogrel Bisulfate (Plavix) 75 mg PO DAILY [facility] Last Admin: 10/18/17 09:35 Dose: 75 mg Digoxin (Digoxin) 0.125 mg PO DAILY@1800 [facility] Last Admin: 10/18/17 17:13 Dose: 0.125 mg Furosemide (Lasix) 60 mg IV BID [facility] Guaifenesin (Mucinex La) 600 mg PO Q12 PRN PRN Reason: CONGESTION Hydroxychloroquine Sulfate (Plaquenil) 200 mg PO BID [facility] PRN Reason: Protocol Last Admin: 10/18/17 17:13 Dose: 200 mg Insulin Human Regular (Novolin R) 0 unit SC [facility] PRN Reason: Protocol Last Admin: 10/18/17 17:14 Dose: 6 units Levothyroxine Sodium (Synthroid) 100 mcg PO DAILY [facility] Lisinopril (Zestril) 5 mg PO DAILY [facility] Last Admin: 10/18/17 09:35 Dose: 5 mg Nitroglycerin (Nitrostat Sl Tab) 0.4 mg SL Q5MIN PRN PRN Reason: chest pain Oxycodone HCl (Oxycodone Immediate Release Tab) 30 mg PO Q4H PRN PRN Reason: Pain, Mild (1-3) Last Admin: 10/18/17 18:29 Dose: 30 mg Rosuvastatin Calcium (Crestor) 40 mg PO HS [facility] Sitagliptin Phosphate (Januvia) 50 mg PO DAILY [facility] Last Admin: 10/18/17 09:35 Dose: 50 mg - Labs Labs: 10/17/17 10:57 10/18/17 13:48 PT 14.7 SECONDS (9.7-12.2) H 10/17/17 10:57 INR 1.3 10/17/17 10:57 APTT 33 SECONDS (21-34) 10/17/17 10:57
--- NOTE | 2017-10-19 02:12 | PN ---
Copied To: Ousmane Amor MD Attending MD: Ousmane Amor MD DATE: 10/18/2017 SUBJECTIVE: The patient is with extensive edema, positive chest pain, troponin x3 are negative. Sugars have been high. No fever, no chills. PHYSICAL EXAMINATION: VITAL SIGNS: Blood pressure 164/94, pulse 51, respiratory rate 20, temperature 98. LUNGS: Bilateral basal rales. Decreased air entry. CVS: S1, S2, plus S3 positive. ABDOMEN: Soft. ____ EXTREMITIES: ____ pitting edema. ASSESSMENT: 1. Acute exacerbation of chronic heart failure. 2. Coronary artery disease. 3. Diabetes. 4. Hypertension. PLAN: Continue current medication. Accu-Chek sliding scale. Monitor the patient. Ousmane Amor MD
[2017-10-19] MEDS: oxyCODONE 30 mg Immediate Release Tab PO PRN ×2 (02:56→07:40)
[2017-10-19] MEDS: (Novolin R) Insulin Human Regular 100 units/ml vial SC SCH (08:30)
[2017-10-19 09:50] VITALS: BP 137/54; PULSE 70; RESP 18; TEMP 98.5
--- NOTE | 2017-10-19 11:29 | CP.PCM.PN ---
Subjective - Date & Time of Evaluation Date of Evaluation: 10/19/17 Time of Evaluation: 11:28 - Subjective Subjective: PT REQUESTING TO BE D/C HOME TODAY. OBSERVED AMBULATING IN [place]; HAS NO COMPLAINTS AND STATES HE FEELS "PRETTY GOOD." OK PER DR. BLANDON TO D/C. PT TO F/U WITH DR. BLANDON AND HIS CLASSIFIER OPERATOR IN [place] WITHIN 5 DAYS. NO FURTHER ORDERS. -FOLLOW UP WITH DR. BLANDON IN THE OFFICE WITHIN 5-7 DAYS---CALL FOR APPT TIME. -FOLLOW UP WITH DR. Lidya PRICE, YOUR CLASSIFIER OPERATOR, IN THE OFFICE WITHIN 5-7 DAYS-- -CALL FOR APPT TIME. -CONTINUE HOME MEDICATIONS USUAL. -NEW PRESCRIPTIONS SENT TO YOUR PHARMACY FOR A REFILL ON YOUR COUGH SYRUP. -START METFORMIN FOR YOUR DIABETES---TAKE 1 TABLET TWICE A DAY. -FOR FURTHER CONCERNS OR QUESTIONS, CONTACT DR. BLANDON. Objective - Vital Signs/Intake and Output Vital Signs (last 24 hours): Temp Pulse Resp BP Pulse Ox 98.5 F 70 18 137/54 L 99 10/19/17 09:20 10/19/17 09:20 10/19/17 09:20 10/19/17 10:26 10/19/17 09:20 Intake and Output: 10/19/17 10/19/17 06:59 18:59 Output Total 3150 Balance -3150 - Medications Medications: Current Medications Apixaban (Eliquis) 5 mg PO Q12 [facility] Last Admin: 10/19/17 10:26 Dose: 5 mg Carvedilol (Coreg) 25 mg PO BID [facility] Last Admin: 10/19/17 10:26 Dose: 25 mg Clopidogrel Bisulfate (Plavix) 75 mg PO DAILY [facility] Last Admin: 10/19/17 10:26 Dose: 75 mg Digoxin (Digoxin) 0.125 mg PO DAILY@1800 [facility] Last Admin: 10/18/17 17:13 Dose: 0.125 mg Furosemide (Lasix) 60 mg IV BID [facility] Last Admin: 10/19/17 10:24 Dose: 60 mg Guaifenesin (Mucinex La) 600 mg PO Q12 PRN PRN Reason: CONGESTION Hydroxychloroquine Sulfate (Plaquenil) 200 mg PO BID [facility] PRN Reason: Protocol Last Admin: 10/19/17 10:32 Dose: 200 mg Insulin Human Regular (Novolin R) 0 unit SC [facility] PRN Reason: Protocol Last Admin: 10/19/17 08:30 Dose: 3 units Levothyroxine Sodium (Synthroid) 100 mcg PO DAILY [facility] Last Admin: 10/19/17 10:32 Dose: 100 mcg Lisinopril (Zestril) 10 mg PO DAILY [facility] Last Admin: 10/19/17 10:26 Dose: 10 mg Metformin HCl (Glucophage) 500 mg PO BID [facility] Last Admin: 10/19/17 10:23 Dose: Not Given Nitroglycerin (Nitrostat Sl Tab) 0.4 mg SL Q5MIN PRN PRN Reason: chest pain Oxycodone HCl (Oxycodone Immediate Release Tab) 30 mg PO Q4H PRN PRN Reason: Pain, Mild (1-3) Last Admin: 10/19/17 07:40 Dose: 30 mg Rosuvastatin Calcium (Crestor) 40 mg PO HS [facility] Last Admin: 10/18/17 21:55 Dose: 40 mg Sitagliptin Phosphate (Januvia) 50 mg PO DAILY [facility] Last Admin: 10/19/17 10:25 Dose: 50 mg - Labs Labs: 10/17/17 10:57 10/18/17 13:48 PT 14.7 SECONDS (9.7-12.2) H 10/17/17 10:57 INR 1.3 10/17/17 10:57 APTT 33 SECONDS (21-34) 10/17/17 10:57
--- NOTE | 2017-10-19 12:00 | PCM.HF ---
Heart Failure Core Measure - Heart Failure Ejection Fraction: 40 % or Greater JEANNE Inhibitor Prescribed: Yes Beta-Rian Prescribed: Carvedilol Angiotensin II Receptor Rian Prescribed: No Contraindication/Reason for not providing: ON ARB AnticoagulationTherapy for Atrial Fibrillation/Atrialflutter: Yes Aldosterone Antagonist Prescribed: No Contraindication/Reason for not providing: EF > 40 Hydralazine Nitrate Prescribed: No Contraindication/Reason for not providing: EF > 40 Implantable Cardioverter Defibrillator Therapy: No Contraindication/Reason for not providing: HAS AICD Cardiac Resynchronization Therapy Prescribed: No Contraindication/Reason for not providing: HAS AICD - Follow up Will be discharged to: Home Follow Up Date (must be within 7 days from discharge): 10/23/17 Follow Up Time: 09:00
--- NOTE | 2017-10-20 00:27 | CP.PCM.DIS ---
Provider - Provider Date of Admission: 10/17/17 12:34 Attending physician: Ousmane Amor MD Hospital Course - Lab Results Lab Results: Most Recent Lab Values WBC 8.0 K/uL (4.8-10.8) 10/17/17 10:57 RBC 4.06 Mil/uL (4.40-5.90) L 10/17/17 10:57 Hgb 10.6 g/dL (12.0-18.0) L 10/17/17 10:57 Hct 32.9 % (35.0-51.0) L 10/17/17 10:57 MCV 81.0 fL (80.0-94.0) 10/17/17 10:57 MCH 26.2 pg (27.0-31.0) L 10/17/17 10:57 MCHC 32.3 g/dL (33.0-37.0) L 10/17/17 10:57 RDW 15.7 % (11.5-14.5) H 10/17/17 10:57 Plt Count 178 K/uL (130-400) 10/17/17 10:57 MPV 8.6 fL (7.2-11.7) 10/17/17 10:57 Neut % (Auto) 64.7 % (50.0-75.0) 10/17/17 10:57 Lymph % (Auto) 25.3 % (20.0-40.0) 10/17/17 10:57 [place] % (Auto) 5.9 % (0.0-10.0) 10/17/17 10:57 Eos % (Auto) 2.4 % (0.0-4.0) 10/17/17 10:57 Baso % (Auto) 1.7 % (0.0-2.0) 10/17/17 10:57 Neut # (Auto) 5.2 K/uL (1.8-7.0) 10/17/17 10:57 Lymph # (Auto) 2.0 K/uL (1.0-4.3) 10/17/17 10:57 [place] # (Auto) 0.5 K/uL (0.0-0.8) 10/17/17 10:57 Eos # (Auto) 0.2 K/uL (0.0-0.7) 10/17/17 10:57 Baso # (Auto) 0.1 K/uL (0.0-0.2) 10/17/17 10:57 PT 14.7 SECONDS (9.7-12.2) H 10/17/17 10:57 INR 1.3 10/17/17 10:57 APTT 33 SECONDS (21-34) 10/17/17 10:57 Sodium 133 mmol/L (132-148) 10/18/17 13:48 Potassium 4.3 mmol/L (3.6-5.2) 10/18/17 13:48 Chloride 92 mmol/L (98-107) L 10/18/17 13:48 Carbon Dioxide 29 mmol/L (22-30) 10/18/17 13:48 Anion Gap 16 (10-20) 10/18/17 13:48 BUN 28 mg/dL (9-20) H 10/18/17 13:48 Creatinine 1.1 mg/dL (0.8-1.5) 10/18/17 13:48 Est GFR ( Amer) > 60 10/18/17 13:48 Est GFR (Non-Af Amer) > 60 10/18/17 13:48 POC Glucose (mg/dL) 307 mg/dL (65-110) H 10/19/17 11:04 Random Glucose 381 mg/dL (75-110) H 10/18/17 13:48 Calcium 9.1 mg/dl (8.6-10.4) 10/18/17 13:48 Total Bilirubin 0.4 mg/dL (0.2-1.3) 10/17/17 10:57 AST 15 U/L (17-59) L D 10/17/17 10:57 ALT 25 U/L (21-72) 10/17/17 10:57 Alkaline Phosphatase 126 U/L (38-126) 10/17/17 10:57 Total Creatine Kinase 121 U/L (55-170) 10/18/17 13:48 CK-MB (Mass) 0.44 ng/mL (0.0-3.38) 10/18/17 13:48 Troponin I < 0.0120 ng/mL (0.00-0.120) 10/18/17 13:48 NT-Pro-B Natriuret Pep 555 pg/mL (0-900) 10/17/17 10:57 Total Protein 7.6 g/dL (6.3-8.3) 10/17/17 10:57 Albumin 3.7 g/dL (3.5-5.0) 10/17/17 10:57 Globulin 3.9 gm/dL (2.2-3.9) 10/17/17 10:57 Albumin/Globulin Ratio 1.0 (1.0-2.1) 10/17/17 10:57 Discharge Plan - Discharge Medications Prescriptions: metFORMIN [glucOPHAGE] 500 mg PO BID #28 tab Promethazine [Phenergan Syrup] 6.25 mg PO Q6 PRN #8 oz PRN Reason: Cough - Follow Up Plan Condition: STABLE Disposition: HOME/ ROUTINE Instructions: Heart Healthy Diet, Heart Failure, Adult (DC) Additional Instructions: -FOLLOW UP WITH DR. AMOR IN THE OFFICE WITHIN 5-7 DAYS---CALL FOR APPT TIME. -FOLLOW UP WITH DR. Lidya PRICE, YOUR STOVE CARRIAGE OPERATOR, IN THE OFFICE WITHIN 5-7 DAYS-- -CALL FOR APPT TIME. -CONTINUE HOME MEDICATIONS USUAL. -NEW PRESCRIPTIONS SENT TO YOUR PHARMACY FOR A REFILL ON YOUR COUGH SYRUP. -START METFORMIN FOR YOUR DIABETES---TAKE 1 TABLET TWICE A DAY. -FOR FURTHER CONCERNS OR QUESTIONS, CONTACT DR. AMOR. Referrals: Burke Bernstein MD [Staff Provider] - Ousmane Amor MD [Staff Provider] -
--- NOTE | 2017-10-20 16:54 | CARD ---
APPROVED REPORT Date of service: 10/17/2017 EKG Measurement Heart [id number] <Conclusion> Atrial-sensed ventricular-paced rhythm Abnormal ECG
--- NOTE | 2017-10-21 00:10 | DS ---
Copied To: Ousmane Amor MD Attending MD: Ousmane Amor MD ADMISSION DIAGNOSIS: Congestive heart failure. DISCHARGE DIAGNOSES: 1. Acute exacerbation of congestive heart failure. 2. Chest pain, rule out acute myocardial infarction. 3. Type 2 diabetes. 4. Hypertension. HISTORY OF PRESENT ILLNESS: This is a middle-aged 52-year-old male, morbidly obese with history of type 2 diabetes, hypertension, hyperlipidemia, obstructive sleep apnea, systemic lupus erythematosus. He is on medical management. He is status post CABG. He was admitted because of chest pain, IL was ruled out by three sets of negative cardiac enzymes. He was found to be in congestive heart failure, fluid overload, and he was started on , daily body weights, diuretics, Lasix IV, Accu-check sliding scale, BiPAP p.r.n. The patient's condition started improving. He felt better. He was diuresed, and the patient is for discharge. PHYSICAL EXAMINATION: VITAL SIGNS: BP 137/54, pulse 70, respiratory rate 18, temperature 98.5. LUNGS: Decreased air entry. CVS: S1, S2, plus S3 positive. PLAN: The patient is discharged with outpatient followup. CONDITION UPON DISCHARGE: Stable. Ousmane Amor MD
== END 2017-10-19 12:15 | disposition home or self-care (01) ==
LOC: C.ER 09:59 → C.6T 12:34 → INTOOBSV 12:34
PROVIDERS: ADMIT Internal Medicine; ATTEND Internal Medicine
DX: I11.0 Hypertensive heart disease with heart failure (principal); I48.91 Unspecified atrial fibrillation; I25.10 Atherosclerotic heart disease of native coronary artery without angina pectoris; J44.9 Chronic obstructive pulmonary disease, unspecified; Z86.73 Personal history of transient ischemic attack (TIA), and cerebral infarction without residual deficits; E03.9 Hypothyroidism, unspecified; D64.9 Anemia, unspecified; Z95.1 Presence of aortocoronary bypass graft; Z87.01 Personal history of pneumonia (recurrent); Z87.891 Personal history of nicotine dependence; M32.9 Systemic lupus erythematosus, unspecified; Z95.0 Presence of cardiac pacemaker; Z95.5 Presence of coronary angioplasty implant and graft; Z95.810 Presence of automatic (implantable) cardiac defibrillator
CPT/HCPCS: 36415; 71045; 80048; 80053; 82948; 83880; 84484; 85025; 85610; 85730; 93005; 94660; 96374; 99285; G0378; J1940

== ENCOUNTER 2018-02-21 14:48 | Observation (INO) | payer MEDICARE, OTHER ==
[2018-02-21 14:49] VITALS: BMI 48.3
[2018-02-21] MEDS ORDERED: Nitroglycerin 2% Ointment Foilpak UD TOP STA (15:19)
--- NOTE | 2018-02-21 15:25 | C.PDOC ---
History Of Present Illness 52 y/o male, with history of CHF and cardiac bypass, presents to ED complaining of midsternal chest pain and SOB since 2 hours ago. Patient states chest pain has been on and off for the past 2 hours. Otherwise he denies diaphoresis, dizziness, nausea, vomiting, or palpitations. Time Seen by Provider: 02/21/18 15:16 Chief Complaint (Nursing): Chest Pain History Per: Patient History/Exam Limitations: no limitations Onset/Duration Of Symptoms: Hrs Current Symptoms Are (Timing): Still Present Past Medical History Reviewed: Historical Data, Nursing Documentation, Vital Signs Vital Signs: Last Vital Signs Temp 98.1 F 02/21/18 14:52 Pulse 82 02/21/18 14:52 Resp 20 02/21/18 14:52 BP 151/88 H 02/21/18 14:52 Pulse Ox 100 02/21/18 14:52 - Medical History PMH: Anemia, Anxiety, Atrial Fibrillation, Back Problems, CAD, Cardia Arrhythmia (AFIB), CHF, COPD, Diabetes, Deep Vein Thrombosis, Emphysema, Graves' Disease, HTN, Hypercholesterolemia, Hypothyroidism, Peripheral Edema, Pneumonia, Sleep Apnea, TIA (2008) Denies: Chronic Kidney Disease Surgical History: CABG (2008), Coronary Stent (3 Stents Prior to Quadruple Bypass), Pacemaker - [facility] Procedures ASSISTANCE WITH RESPIRATORY VENTILATION, 24-96 HRS, CPAP (10/15/15) INJECT/INFUSE NEC (10/09/12) Family History: States: No Known Family Hx - Social History Hx Tobacco Use: Yes Hx Alcohol Use: No Hx Substance Use: No - Immunization History Hx Tetanus Toxoid Vaccination: No Hx Influenza Vaccination: Yes (10/2017) Hx Pneumococcal Vaccination: Yes (2015) Review Of Systems Except As Marked, All Systems Reviewed And Found Negative. Constitutional: Negative for: Fever, Sweats Cardiovascular: Positive for: Chest Pain (midsternal). Negative for: Palpitations Respiratory: Positive for: Shortness of Breath Gastrointestinal: Negative for: Nausea, Vomiting Neurological: Negative for: Dizziness Physical Exam - Physical Exam Appears: Non-toxic, No Acute Distress Skin: Warm, Dry Head: Atraumatic, Normacephalic Eye(s): bilateral: Normal Inspection, PERRL, EOMI Oral Mucosa: Moist Neck: Normal ROM, Supple Chest: Symmetrical Cardiovascular: Rhythm Regular, No Murmur Respiratory: Normal Breath Sounds, No Rales, No Rhonchi, No Wheezing Gastrointestinal/Abdominal: Soft, No Tenderness, Other (Obese) Extremity: Pedal Edema (+1 ) Extremity: Bilateral: Normal ROM Neurological/Psych: Oriented x3, Normal Speech ED Course And Treatment - Laboratory Results Result Diagrams: 02/21/18 15:55 02/21/18 15:55 ECG: Interpreted By Me, Viewed By Me ECG Rhythm: V Paced Interpretation Of ECG: QT normal. Rate From EC O2 Sat by Pulse Oximetry: 100 (RA) Pulse Ox Interpretation: Normal Medical Decision Making Medical Decision Making: Plan: --EKG --Bloodwork --Chest x-ray --Lasix 40 mg IVP --Nitroglycerin 16:54 - Spoke to Dr. Amor who accepted telemetry. Disposition Discussed With : Ousmane Amor Counseled Patient/Family Regarding: Diagnosis - Disposition Disposition: HOSPITALIZED Disposition Time: 16:59 Condition: GUARDED Forms: [facility] (Latvian) - POA Present On Arrival: None - Clinical Impression Clinical Impression: Chronic congestive heart failure, Chest pain - Scribe Statement The provider has reviewed the documentation as recorded by the Nainibchris Browning Provider Attestation: All medical record entries made by the Nainibe were at my direction and personally dictated by me. I have reviewed the chart and agree that the record accurately reflects my personal performance of the history, physical exam, medical decision making, and the department course for this patient. I have also personally directed, reviewed, and agree with the discharge instructions and disposition.
[2018-02-21] MEDS ORDERED: Nitroglycerin 2% Ointment Foilpak UD TOP ONE (15:58)
[2018-02-21 16:01] LABS: BASO # 0.1 K/uL (0.0-0.2); EOS % 0.3 % (0.0-4.0); HEMOGLOBIN 10.5 g/dL (12.0-18.0); LYMPH # 1.3 K/uL (1.0-4.3); LYMPH % 10.5 % (20.0-40.0); MEAN CELL VOLUME 79.5 fL (80.0-94.0); MEAN CORPUSCULAR HEMOGLOBIN 25.1 pg (27.0-31.0); MEAN CORPUSCULAR HGB CONC 31.6 g/dL (33.0-37.0); MEAN PLATELET VOLUME 8.1 fL (7.2-11.7); MONO # 0.6 K/uL (0.0-0.8); MONO % 4.7 % (0.0-10.0); NEUT # 10.5 K/uL (1.8-7.0); NEUT % 83.5 % (50.0-75.0); RBC 4.18 Mil/uL (4.40-5.90); RED CELL DISTRIBUTION WIDTH 17.9 % (11.5-14.5); WHITE BLOOD COUNT 12.6 K/uL (4.8-10.8)
[2018-02-21 16:15] LABS: ALT/SGPT 26 U/L (21-72); AST/SGOT 16 U/L (17-59); BLOOD UREA NITROGEN 35 mg/dL (9-20); GFR NON-AFRICAN AMERICAN 54
[2018-02-21 16:26] LABS: B-TYPE NATRIURETIC PEPTIDE 2750 pg/mL (0-900)
--- NOTE | 2018-02-21 17:29 | RAD ---
Date of service: 02/21/2018 PROCEDURE: CHEST RADIOGRAPH, 1 VIEW HISTORY: chest pain COMPARISON: 10/17/2017 FINDINGS: LUNGS: Clear. PLEURA: No pneumothorax or pleural fluid seen. CARDIOVASCULAR: No aortic atherosclerotic calcification present. Normal heart size. AICD. Sternotomy wires. OSSEOUS STRUCTURES: No significant abnormalities. VISUALIZED UPPER ABDOMEN: Normal. OTHER FINDINGS: None. IMPRESSION: No active disease.
[2018-02-21] MEDS ORDERED: Promethazine 6.25 MG/5 ML CUP PO PRN (19:22)
[2018-02-21] MEDS ORDERED: guaiFENesin 600 mg ER Tab PO PRN (19:22)
[2018-02-21] MEDS: oxyCODONE 30 mg Immediate Release Tab PO PRN (20:15)
[2018-02-21 20:16] LABS: CK-MB 0.57 ng/mL (0.0-3.38)
[2018-02-22] MEDS: oxyCODONE 30 mg Immediate Release Tab PO PRN ×5 (01:10→21:51)
[2018-02-22 03:22] LABS: CK-MB 0.55 ng/mL (0.0-3.38)
[2018-02-22] MEDS: Levothyroxine 100 MCG TAB PO SCH (06:52)
[2018-02-22 14:43] LABS: CK-MB 0.63 ng/mL (0.0-3.38)
[2018-02-22] MEDS: Digoxin 125 mcg (0.125 mg) Tab PO SCH (17:41)
[2018-02-23] MEDS: oxyCODONE 30 mg Immediate Release Tab PO PRN ×5 (01:49→20:42)
[2018-02-23] MEDS: Levothyroxine 100 MCG TAB PO SCH (06:33)
--- NOTE | 2018-02-23 08:37 | CARD ---
APPROVED REPORT Date of service: 02/21/2018 EKG Measurement Heart [id number] <Conclusion> Atrial-sensed ventricular-paced rhythm Abnormal ECG
[2018-02-23 16:00] VITALS: RESP 20
[2018-02-23 17:23] VITALS: PULSE 64
[2018-02-23] MEDS: Digoxin 125 mcg (0.125 mg) Tab PO SCH (17:23)
--- NOTE | 2018-02-23 19:25 | CP.PCM.HP ---
History of Present Illness - History of Present Illness History of Present Illness: 52 y/o aam with cad,chf,t2dm, htn sle anemia dvt, pe, a.fibrillation with chest pain and dyspnea, cough, no fever, no dizziness, has lbp, Present on Admission - Present on Admission History of DVT/PE: Yes History of Uncontrolled Diabetes: Yes Urinary Catheter: No Decubitus Ulcer Present: No History Surgical Site Infection Following: CABG - Mediastinitis Review of Systems - Review of Systems Systems not reviewed;Unavailable: Respiratory Distress - Constitutional Constitutional: Daytime Sleepiness, Headache, Increased Appetite, Snoring, Weakness. absent: Anorexia - EENT Eyes: absent: Change in Vision, Diplopia, Exophthalmos, Itchy Eyes, Loss of Peripheral Vision, Sees Flashes Ears: Ear Discharge Nose/Mouth/Throat: Nasal Discharge, Hoarsness, Sore Throat. absent: Nasal Trauma, Nose Pain, Bleeding Gums, Halitosis - Cardiovascular Cardiovascular: Dyspnea, Edema, Leg Ulcers - Respiratory Respiratory: Cough, Snoring, Chest Congestion - Gastrointestinal Gastrointestinal: Dyspepsia, Heartburn. absent: Diarrhea - Genitourinary Genitourinary: Urinary Urgency. absent: Difficulty Urinating - Musculoskeletal Musculoskeletal: Back Pain, Muscle Cramps, Muscle Weakness, Radiating Pain into Limb, Stiffness - Neurological Neurological: Weakness - Psychiatric Psychiatric: Anhedonia, Anxiety, Difficulty Concentrating, Irritability - Endocrine Endocrine: Fatigue, Palpitations Past Patient History - Infectious Disease Hx of Infectious Diseases: None - Past Medical History & Family History Past Medical History?: Yes - Past Social History Smoking Status: Light Smoker < 10 Cigarettes Daily - CARDIAC Hx Atrial Fibrillation: Yes Hx Cardia Arrhythmia: Yes (AFIB) Hx Congestive Heart Failure: Yes Hx Hypercholesterolemia: Yes Hx Hypertension: Yes Hx Pacemaker: Yes Hx Peripheral Edema: Yes - PULMONARY Hx Chronic Obstructive Pulmonary Disease (COPD): Yes Hx Emphysema: Yes Hx Pneumonia: Yes Hx Sleep Apnea: Yes - NEUROLOGICAL Hx Transient Ischemic Attacks (TIA): Yes (2008) - HEENT Hx HEENT Problems: No - RENAL Hx Chronic Kidney Disease: No - ENDOCRINE/METABOLIC Hx Hypothyroidism: Yes - HEMATOLOGICAL/ONCOLOGICAL Hx Anemia: Yes - INTEGUMENTARY Hx Dermatological Problems: No - MUSCULOSKELETAL/RHEUMATOLOGICAL Hx Falls: No - GASTROINTESTINAL Hx Gastrointestinal Disorders: No - GENITOURINARY/GYNECOLOGICAL Hx Genitourinary Disorders: No - PSYCHIATRIC Hx Anxiety: Yes Hx Substance Use: No - SURGICAL HISTORY Hx Coronary Artery Bypass Graft: Yes (2008) Hx Coronary Stent: Yes (3 Stents Prior to Quadruple Bypass) - ANESTHESIA Hx Anesthesia: Yes Hx Anesthesia Reactions: No Hx Malignant Hyperthermia: No Meds Allergies/Adverse Reactions: Allergies Allergy/AdvReac Type Severity Reaction Status Date / Time No Known Drug Allergies Allergy n/a Verified 02/21/18 14:57 Physical Exam - Constitutional Appears: Non-toxic, In Acute Distress, Chronically Ill - Head Exam Head Exam: ATRAUMATIC, NORMAL INSPECTION, NORMOCEPHALIC - Eye Exam Eye Exam: EOMI, Normal appearance, PERRL Pupil Exam: NORMAL ACCOMODATION - ENT Exam ENT Exam: Mucous Membranes Moist, Normal Exam, Normal Oropharynx, TM's Normal Bilaterally - Neck Exam Neck exam: Positive for: Normal Inspection - Respiratory Exam Respiratory Exam: Rales, Wheezes, Respiratory Distress - Cardiovascular Exam Cardiovascular Exam: Gallop, REGULAR RHYTHM, +S1, +S2, Systolic Murmur - GI/Abdominal Exam GI & Abdominal Exam: Normal Bowel Sounds, Soft - Rectal Exam Rectal Exam: NORMAL INSPECTION - Exam Exam: NORMAL INSPECTION - Extremities Exam Extremities exam: Positive for: normal capillary refill, pedal edema, pedal pulses present - Back Exam Back exam: NORMAL INSPECTION - Neurological Exam Neurological exam: Alert, CN II-XII Intact, Normal Gait, Oriented x3, Reflexes Normal - Psychiatric Exam Psychiatric exam: Depressed, Flat Affect - Skin Skin Exam: Intact Results - Vital Signs Recent Vital Signs: Last Vital Signs Temp 98.0 F 02/23/18 15:59 Pulse 63 02/23/18 15:59 Resp 20 02/23/18 15:59 BP 122/71 02/23/18 17:21 Pulse Ox 99 02/23/18 15:59 - Labs Result Diagrams: 02/21/18 15:55 02/21/18 15:55 Labs: Laboratory Results - last 24 hr 02/22/18 21:03 POC Glucose (mg/dL) 286 H Assessment & Plan (1) Atypical chest pain Status: Acute Priority: High (2) CHF exacerbation Status: Acute Priority: High (3) Diabetes mellitus Status: Chronic Priority: Medium (4) HTN (hypertension) Status: Chronic Priority: Medium (5) Hypothyroid Status: Chronic Priority: Low (6) Lupus (systemic lupus erythematosus) Status: Chronic Priority: Medium
--- NOTE | 2018-02-23 21:08 | CP.PCM.PN ---
Subjective - Subjective Subjective: dictated Objective - Vital Signs/Intake and Output Vital Signs (last 24 hours): Temp Pulse Resp BP Pulse Ox 98.0 F 63 20 122/71 99 02/23/18 15:59 02/23/18 15:59 02/23/18 15:59 02/23/18 17:21 02/23/18 15:59 Intake and Output: 02/23/1818 18:59 06:59 Intake Total 1000 Balance 1000 - Medications Medications: Current Medications Apixaban (Eliquis) 5 mg PO Q12 [facility] Last Admin: 02/23/18 10:39 Dose: 5 mg Carvedilol (Coreg) 25 mg PO BID [facility] Last Admin: 02/23/18 17:21 Dose: 25 mg Clopidogrel Bisulfate (Plavix) 75 mg PO DAILY [facility] Last Admin: 02/23/18 10:39 Dose: 75 mg Digoxin (Digoxin) 0.125 mg PO DAILY@1800 [facility] Last Admin: 02/23/18 17:23 Dose: 0.125 mg Guaifenesin (Mucinex La) 600 mg PO Q12 PRN PRN Reason: CONGESTION Hydroxychloroquine Sulfate (Plaquenil) 200 mg PO DAILY [facility]; Protocol Last Admin: 02/23/18 10:39 Dose: 200 mg Levothyroxine Sodium (Synthroid) 100 mcg PO DAILY@0630 [facility] Last Admin: 02/23/18 06:33 Dose: 100 mcg Lisinopril (Zestril) 5 mg PO DAILY [facility] Last Admin: 02/23/18 10:39 Dose: 5 mg Metformin HCl (Glucophage) 500 mg PO BID [facility] Last Admin: 02/23/18 17:21 Dose: 500 mg Nitroglycerin (Nitrostat Sl Tab) 0.4 mg SL Q5MIN PRN PRN Reason: chest pain Oxycodone HCl (Oxycodone Immediate Release Tab) 30 mg PO Q4H PRN PRN Reason: Pain, Mild (1-3) Last Admin: 02/23/18 20:42 Dose: 30 mg Promethazine HCl (Phenergan Syrup) 6.25 mg PO Q6 PRN PRN Reason: Cough Rosuvastatin Calcium (Crestor) 40 mg PO HS [facility] Last Admin: 02/22/18 21:49 Dose: 40 mg Sitagliptin Phosphate (Januvia) 50 mg PO DAILY [facility] Last Admin: 02/23/18 10:39 Dose: 50 mg - Labs Labs: 02/21/18 15:55 02/21/18 15:55 Assessment and Plan (1) Atypical chest pain Status: Acute (2) CHF exacerbation Status: Acute (3) Diabetes mellitus Status: Chronic (4) HTN (hypertension) Status: Chronic (5) Hypothyroid Status: Chronic (6) Lupus (systemic lupus erythematosus) Status: Chronic
--- NOTE | 2018-02-23 23:23 | PN ---
DATE: 02/23/2018 SUBJECTIVE: The patient, tAa Keller, is less short of breath, less chest pain. Cardiac enzymes x3 negative. PHYSICAL EXAMINATION: VITAL SIGNS: BP 122/77, pule 63, respiratory 20, temperature 98. LUNGS: Bilateral basal rales. Decreased air entry. CARDIOVASCULAR SYSTEM: S1 and S2 are regular. ABDOMEN: Soft. ASSESSMENT: 1. Congestive heart failure. 2. Systemic lupus erythematosus. 3. Coronary artery disease. 4. Diabetes. PLAN: Continue current medications. Monitor the patient. Ousmane Amor MD
--- NOTE | 2018-02-23 23:55 | CON ---
DATE: 02/23/2018 CARDIOLOGY CONSULTATION REASON OF CONSULTATION: Shortness of breath. HISTORY OF PRESENT ILLNESS: The patient is a 52-year-old morbid obese, male, known to me from multiple prior admissions, has history of cardiomyopathy, coronary artery bypass surgery, ICD placement, with multiple admissions for exacerbation of congestive heart failure as well as worsening of his leg swelling. The patient presented because of worsening shortness of breath as well as leg swelling. The patient denies any fevers, chills or productive cough. The patient has last seen his stack yield engineer last month, and the device was checked. The patient was told everything was doing well. The patient does not recall any recent discharge from the defibrillator. The patient underwent a cardiac catheterization at [facility] about two years ago, which I did review the images and did not consider the patient to be a candidate for any coronary intervention. The patient has a history of sleep apnea and has CPAP at home. The patient compliant with his CPAP as well as medications. SOCIAL HISTORY: The patient lives by himself. He is a nonsmoker. MEDICATIONS: Coreg 25 mg twice a day, Crestor 40 mg once a day, digoxin 0.125 mg once a day, Eliquis 5 mg twice a day, metformin 500 mg twice a day, Januvia 50 mg once a day, Mucinex LA 600 mg twice a day, Plaquenil 200 mg once a day, Synthroid 100 mcg once a day, Zestril 5 mg once a day, Plavix 75 mg once a day. REVIEW OF SYSTEMS: No fever or chills. No productive cough. No dizziness or syncope. PHYSICAL EXAMINATION: GENERAL: The patient is a middle-aged male who does not appear to be in any distress. VITAL SIGNS: Blood pressure 122/77, heart rate 63, temperature 98, and respirations 20. HEENT: Pale conjunctivae. NECK: No JVD. CHEST: Diminished breath sounds over the bases. HEART: S1 and S2 are regular and distant. ABDOMEN: Soft. EXTREMITIES: Chronic skin changes with choric nonpitting edema bilaterally. LABORATORY DATA: Hemoglobin and hematocrit 10.5 and 33.3, white count 12.6, and platelet count 293,000. SMA-7: Sodium 138, potassium 4.7, chloride 100, CO2 of 30, glucose 218, BUN 35, creatinine 1.4. Three sets of troponins are negative. ProBNP is 2750. Chest x-ray revealed cardiomegaly. No definite infiltrate. ICD with dual-chamber pacemaker, possibly biventricular pacemaker. EKG revealed atrial sensed biventricular paced rhythm. ASSESSMENT: 1. Congestive heart failure. The patient's most recent echocardiographic study and record was from 08/2015 which reported normal left ventricular systolic function and right ventricular systolic pressure estimated 50% to 60%. 2. Sleep apnea. 3. Coronary artery disease, status post coronary artery bypass surgery. 4. Hypothyroidism. 5. Hypertension. 6. Lupus erythematosus. 7. Diabetes mellitus. 8. Questionable history of deep vein thrombosis. RECOMMENDATIONS: Continue Coreg 25 mg once a day, Crestor 40 mg once a day, digoxin 0.125 mg daily, Eliquis 5 mg twice a day, Glucophage 500 mg twice a day, Januvia 50 mg once a day, Mucinex LA 600 mg twice a day, Plaquenil 200 mg daily, Synthroid 100 mcg once a day, Plavix 75 mg once a day, Zestril 5 mg once a day. Repeat an echocardiographic study. Burke Bernstein MD
[2018-02-24] MEDS: oxyCODONE 30 mg Immediate Release Tab PO PRN ×3 (00:46→10:13)
[2018-02-24 03:33] VITALS: O2SAT 100
[2018-02-24] MEDS: Levothyroxine 100 MCG TAB PO SCH (06:14)
[2018-02-24 08:25] VITALS: BP 122/60; PULSE 64; TEMP 98.3
--- NOTE | 2018-02-24 22:51 | CP.PCM.DIS ---
Provider - Provider Date of Admission: 02/21/18 16:55 Attending physician: Ousmane Amor MD Diagnosis - Discharge Diagnosis (1) Atypical chest pain Status: Acute Priority: High (2) CHF exacerbation Status: Acute Priority: High (3) Diabetes mellitus Status: Chronic Priority: Medium (4) HTN (hypertension) Status: Chronic Priority: Medium (5) Hypothyroid Status: Chronic Priority: Low (6) Lupus (systemic lupus erythematosus) Status: Chronic Priority: Medium Hospital Course - Lab Results Lab Results: Most Recent Lab Values WBC 12.6 K/uL (4.8-10.8) H D 02/21/18 15:55 RBC 4.18 Mil/uL (4.40-5.90) L 02/21/18 15:55 Hgb 10.5 g/dL (12.0-18.0) L 02/21/18 15:55 Hct 33.3 % (35.0-51.0) L 02/21/18 15:55 MCV 79.5 fL (80.0-94.0) L 02/21/18 15:55 MCH 25.1 pg (27.0-31.0) L 02/21/18 15:55 MCHC 31.6 g/dL (33.0-37.0) L 02/21/18 15:55 RDW 17.9 % (11.5-14.5) H 02/21/18 15:55 Plt Count 293 K/uL (130-400) D 02/21/18 15:55 MPV 8.1 fL (7.2-11.7) 02/21/18 15:55 Neut % (Auto) 83.5 % (50.0-75.0) H 02/21/18 15:55 Lymph % (Auto) 10.5 % (20.0-40.0) L 02/21/18 15:55 Nobles % (Auto) 4.7 % (0.0-10.0) 02/21/18 15:55 Eos % (Auto) 0.3 % (0.0-4.0) 02/21/18 15:55 Baso % (Auto) 1.0 % (0.0-2.0) 02/21/18 15:55 Neut # (Auto) 10.5 K/uL (1.8-7.0) H 02/21/18 15:55 Lymph # (Auto) 1.3 K/uL (1.0-4.3) 02/21/18 15:55 Nobles # (Auto) 0.6 K/uL (0.0-0.8) 02/21/18 15:55 Eos # (Auto) 0.0 K/uL (0.0-0.7) 02/21/18 15:55 Baso # (Auto) 0.1 K/uL (0.0-0.2) 02/21/18 15:55 Sodium 138 mmol/L (132-148) 02/21/18 15:55 Potassium 4.7 mmol/L (3.6-5.2) 02/21/18 15:55 Chloride 100 mmol/L (98-107) 02/21/18 15:55 Carbon Dioxide 30 mmol/L (22-30) 02/21/18 15:55 Anion Gap 13 (10-20) 02/21/18 15:55 BUN 35 mg/dL (9-20) H 02/21/18 15:55 Creatinine 1.4 mg/dL (0.8-1.5) 02/21/18 15:55 Est GFR ( Amer) > 60 02/21/18 15:55 Est GFR (Non-Af Amer) 54 02/21/18 15:55 POC Glucose (mg/dL) 196 mg/dL (65-110) H 02/24/18 07:11 Random Glucose 218 mg/dL (75-110) H D 02/21/18 15:55 Calcium 9.0 mg/dl (8.6-10.4) 02/21/18 15:55 Total Bilirubin 0.4 mg/dL (0.2-1.3) 02/21/18 15:55 AST 16 U/L (17-59) L 02/21/18 15:55 ALT 26 U/L (21-72) 02/21/18 15:55 Alkaline Phosphatase 165 U/L (38-126) H D 02/21/18 15:55 Total Creatine Kinase 49 U/L (55-170) L 02/22/18 13:49 CK-MB (Mass) 0.63 ng/mL (0.0-3.38) 02/22/18 13:49 Troponin I < 0.0120 ng/mL (0.00-0.120) 02/22/18 13:49 NT-Pro-B Natriuret Pep 2750 pg/mL (0-900) H 02/21/18 15:55 Total Protein 8.3 g/dL (6.3-8.3) 02/21/18 15:55 Albumin 4.0 g/dL (3.5-5.0) 02/21/18 15:55 Globulin 4.2 gm/dL (2.2-3.9) H 02/21/18 15:55 Albumin/Globulin Ratio 1.0 (1.0-2.1) 02/21/18 15:55 Discharge Exam - Head Exam Head Exam: ATRAUMATIC, NORMAL INSPECTION, NORMOCEPHALIC Discharge Plan - Follow Up Plan Condition: GUARDED Disposition: AGAINST MEDICAL ADVICE
--- NOTE | 2018-02-26 02:36 | DS ---
DISCHARGE DIAGNOSES: 1. Exacerbation of congestive heart failure. 2. Coronary artery disease. 3. Sleep apnea. 4. Hypertension. 5. Systemic lupus erythematosus. HOSPITAL COURSE: This is a 52-year-old male with history of morbid obesity, sleep apnea, hypertension, type 2 diabetes, coronary artery disease, status post CABG, congestive heart failure with ICD in place, who is noncompliant with his diet, medication, and followup. He came in because of shortness of breath, cough, congestion. He was found to be in congestive failure. He was started on diuretic, intake and output daily, body weight, and Lasix. The patient's condition started improving, and while the patient's treatment was in progress, he signed out against medical advice. VITAL SIGNS: Blood pressure 122/60, pulse 64, respiratory rate 20, and temperature 98.3. LABORATORY DATA: Blood sugar 299, 277. WBC 12.6, hemoglobin 10.5, hematocrit 33.3, platelets 293. Chemistry: Sodium 138, potassium 4.7, chloride 100, bicarbonate 30, BUN 35, creatinine 1.4. Alk phos 165. ProBNP 2750. Ousmane Amor MD
== END 2018-02-24 10:45 | disposition left against medical advice (07) ==
LOC: C.ER 14:48 → C.9E 16:55 → C.5S 17:08 → C.3T 02-22 21:38
PROVIDERS: ADMIT Internal Medicine; ATTEND Internal Medicine
DX: I11.0 Hypertensive heart disease with heart failure (principal); E11.9 Type 2 diabetes mellitus without complications; E03.9 Hypothyroidism, unspecified; E66.01 Morbid (severe) obesity due to excess calories; J43.9 Emphysema, unspecified; I50.9 Heart failure, unspecified; M32.9 Systemic lupus erythematosus, unspecified; Z86.73 Personal history of transient ischemic attack (TIA), and cerebral infarction without residual deficits; Z87.01 Personal history of pneumonia (recurrent); G47.30 Sleep apnea, unspecified; I25.10 Atherosclerotic heart disease of native coronary artery without angina pectoris; I48.91 Unspecified atrial fibrillation; I42.9 Cardiomyopathy, unspecified; Z87.891 Personal history of nicotine dependence; Z91.11 Patient's noncompliance with dietary regimen; Z95.0 Presence of cardiac pacemaker; Z95.1 Presence of aortocoronary bypass graft; Z95.5 Presence of coronary angioplasty implant and graft; Z95.810 Presence of automatic (implantable) cardiac defibrillator; E78.00 Pure hypercholesterolemia, unspecified
CPT/HCPCS: 36415; 71045; 80053; 82948; 83880; 84484; 85025; 93005; 96374; 99285; G0378; J1940

== ENCOUNTER 2018-03-05 13:59 | Observation (INO) | payer MEDICARE, OTHER ==
[2018-03-05 13:59] VITALS: BMI 48.3
[2018-03-05] MEDS ORDERED: Nitroglycerin 2% Ointment Foilpak UD TOP STA (15:18)
[2018-03-05] MEDS ORDERED: Nitroglycerin 2% Ointment Foilpak UD TOP ONE (15:31)
[2018-03-05 15:36] LABS: BASO # 0.1 K/uL (0.0-0.2); BASO % 1.1 % (0.0-2.0); EOS # 0.2 K/uL (0.0-0.7); EOS % 2.1 % (0.0-4.0); LYMPH # 1.2 K/uL (1.0-4.3); LYMPH % 12.9 % (20.0-40.0); MEAN CELL VOLUME 79.4 fL (80.0-94.0); MEAN CORPUSCULAR HEMOGLOBIN 24.6 pg (27.0-31.0); MEAN CORPUSCULAR HGB CONC 30.9 g/dL (33.0-37.0); MEAN PLATELET VOLUME 8.8 fL (7.2-11.7); MONO # 0.4 K/uL (0.0-0.8); MONO % 4.3 % (0.0-10.0); NEUT # 7.2 K/uL (1.8-7.0); NEUT % 79.6 % (50.0-75.0); NRBC % 0.1 % (0.0-2.0); RBC 4.08 Mil/uL (4.40-5.90); RED CELL DISTRIBUTION WIDTH 17.7 % (11.5-14.5)
[2018-03-05 15:44] LABS: INR 1.4; PROTHROMBIN TIME 15.2 SECONDS (9.7-12.2)
[2018-03-05 15:49] LABS: ALB/GLOB RATIO 1.1 (1.0-2.1); ALBUMIN 3.7 g/dL (3.5-5.0); ALT/SGPT 31 U/L (21-72); AST/SGOT 38 U/L (17-59); BLOOD UREA NITROGEN 34 mg/dL (9-20); CALCIUM 8.6 mg/dl (8.6-10.4); GFR NON-AFRICAN AMERICAN 58
--- NOTE | 2018-03-05 15:49 | C.PDOC ---
History Of Present Illness 52yo male with history of HTN, HCH, COPD, CHF, AFIB, CAD, CABG, coronary stent and pacemaker, comes to ER reporting mid-sternal chest pain, occuring 30 minutes prior to arrival. Patient states he took 1 tab of NTG SL, with relief of symptoms. Patient states he also took 1 tab of baby aspirin, which he takes daily. He otherwise denies any sweats, radiation of pain or syncopal episode. Patient denies shortness of breath, abdominal pain, and offers no additional complaints. PMD: Dr. Amor Homebirth Midwife: Dr. Dyer ([facility]) Time Seen by Provider: 03/05/18 15:00 Chief Complaint (Nursing): Chest Pain History Per: Patient History/Exam Limitations: no limitations Onset/Duration Of Symptoms: Mins (30) Current Symptoms Are (Timing): Better Quality: Pressure, "Pain" Associated Symptoms: denies: Nausea, Dyspnea, Diaphoresis, Syncope Nitro Therapy Administered: 1, Per Own Supply, Partial Relief Additional History Per: Patient Past Medical History Reviewed: Historical Data, Nursing Documentation, Vital Signs Vital Signs: Last Vital Signs Temp 98.1 F 03/05/18 14:08 Pulse 67 03/05/18 14:08 Resp 20 03/05/18 14:08 BP 105/61 03/05/18 14:08 Pulse Ox 98 03/05/18 14:08 - Medical History PMH: Anemia, Anxiety, Atrial Fibrillation, Back Problems, CAD, Cardia Arrhythmia (AFIB), CHF, COPD, Diabetes, Deep Vein Thrombosis, Emphysema, Graves' Disease, HTN, Hypercholesterolemia, Hypothyroidism, Peripheral Edema, Pneumonia, Sleep Apnea, TIA Denies: Chronic Kidney Disease Surgical History: CABG (2008 x4), Coronary Stent (4), Pacemaker - [facility] Procedures ASSISTANCE WITH RESPIRATORY VENTILATION, 24-96 HRS, CPAP (10/15/15) INJECT/INFUSE NEC (10/09/12) Family History: States: No Known Family Hx - Social History Hx Tobacco Use: Yes Hx Alcohol Use: No Hx Substance Use: No - Immunization History Hx Tetanus Toxoid Vaccination: Yes Hx Influenza Vaccination: Yes Hx Pneumococcal Vaccination: Yes Review Of Systems Except As Marked, All Systems Reviewed And Found Negative. Constitutional: Negative for: Fever, Chills, Sweats Cardiovascular: Positive for: Chest Pain Respiratory: Negative for: Shortness of Breath Gastrointestinal: Negative for: Vomiting, Abdominal Pain Physical Exam - Physical Exam Appears: Non-toxic Skin: Normal Color, Warm, Dry Head: Normacephalic Eye(s): bilateral: Normal Inspection Oral Mucosa: Moist Neck: Normal ROM, Supple Chest: Symmetrical Cardiovascular: Rhythm Regular Respiratory: Normal Breath Sounds Gastrointestinal/Abdominal: Normal Exam, Soft Back: Normal Inspection Extremity: Normal ROM, Pedal Edema Neurological/Psych: Oriented x3 ED Course And Treatment - Laboratory Results Result Diagrams: 03/05/18 15:32 03/05/18 15:32 ECG: Interpreted By Me, Viewed By Me ECG Rhythm: V Paced ECG Interpretation: No Acute Changes Rate From EC O2 Sat by Pulse Oximetry: 98 (RA) Pulse Ox Interpretation: Normal - Other Rad CXR X-Ray: Viewed By Me, Read By Radiologist Interpretation: Accession No. : [id number]. Patient Name / ID : FLAKITO RANDOLPH / [id number]. Exam Date : 03/05/2018 15:39:44 ( Approved ). Study Comment : Sex / Age : M / [id number]. Creator : Sary Chandra MD. Dictator : Sary Chandra MD. [employer] Application Developer : Publication Specialist : Sary Chandra MD. Approver2 : Report Date : 03/05/2018 16:02:45. My Comment : . Date of service: 03/05/2018. PROCEDURE: CHEST RADIOGRAPH, 1 VIEW. HISTORY: Chest pain. COMPARISON: 02/21/2018. FINDINGS: LUNGS: There are low lung volumes. There is moderate pulmonary venous congestion. PLEURA: No pneumothorax or pleural effusion. CARDIOVASCULAR: There is mild cardiomegaly. There is stable position of left-sided permanent pacing device. No aortic atherosclerotic calcifications present. OSSEOUS STRUCTURES: Within normal limits for the patient's age. VISUALIZED UPPER ABDOMEN: Normal. OTHER FINDINGS: None. IMPRESSION: No acute findings. Persistent moderate cardiomegaly and pulmonary venous congestion. Progress Note: Cardiac labs, CXR and urinalysis ordered. Patient given topical nitroglycerin and PO aspirin. Case was d/w patient's PMD who accepted patient to tele for observation. Disposition - Disposition Disposition: HOSPITALIZED Disposition Time: 18:09 Condition: FAIR Forms: [facility] (Italian) - Clinical Impression Clinical Impression: Chest pain - PA / WOOLEN TESTER / Resident Statement MD/DO has reviewed & agrees with the documentation as recorded. - Scribe Statement The provider has reviewed the documentation as recorded by the Jodi Sherman Provider Attestation: All medical record entries made by the Jodi were at my direction and personally dictated by me. I have reviewed the chart and agree that the record accurately reflects my personal performance of the history, physical exam, medical decision making, and the department course for this patient. I have also personally directed, reviewed, and agree with the discharge instructions and disposition. Decision To Admit - Pt Status Changed To: Hospital Disposition Of: Observation - . Bed Request Type: Telemetry Admitting Physician: Ousmane Amor Patient Diagnosis: Chest pain
--- NOTE | 2018-03-05 16:06 | RAD ---
Date of service: 03/05/2018 PROCEDURE: CHEST RADIOGRAPH, 1 VIEW HISTORY: Chest pain COMPARISON: 02/21/2018. FINDINGS: LUNGS: There are low lung volumes. There is moderate pulmonary venous congestion. PLEURA: No pneumothorax or pleural effusion. CARDIOVASCULAR: There is mild cardiomegaly. There is stable position of left-sided permanent pacing device. No aortic atherosclerotic calcifications present. OSSEOUS STRUCTURES: Within normal limits for the patient's age. VISUALIZED UPPER ABDOMEN: Normal. OTHER FINDINGS: None. IMPRESSION: No acute findings. Persistent moderate cardiomegaly and pulmonary venous congestion.
[2018-03-05 17:38] LABS: SQUAMOUS EPITHIAL < 1 /hpf (0-5); URINE BACTERIA RARE (<OCC); URINE BILIRUBIN NEGATIVE (NEGATIVE); URINE BLOOD NEGATIVE (NEGATIVE); URINE CLARITY Clear (Clear); URINE COLOR Yellow (YELLOW); URINE GLUCOSE (UA) NORMAL (Normal); URINE LEUKOCYTE ESTERASE NEG Leu/uL (Negative); URINE PROTEIN NEGATIVE (NEGATIVE); URINE UROBILINOGEN NORMAL mg/dL (0.2-1.0)
[2018-03-05] MEDS ORDERED: guaiFENesin 600 mg ER Tab PO PRN (18:33)
[2018-03-05] MEDS: oxyCODONE 30 mg Immediate Release Tab PO PRN (20:10)
[2018-03-05 20:11] VITALS: RESP 20
--- NOTE | 2018-03-05 21:52 | CP.PCM.HP ---
Past Patient History - Infectious Disease Hx of Infectious Diseases: None - Past Medical History & Family History Past Medical History?: Yes - Past Social History Smoking Status: Light Smoker < 10 Cigarettes Daily - CARDIAC Hx Atrial Fibrillation: Yes Hx Cardia Arrhythmia: Yes (AFIB) Hx Congestive Heart Failure: Yes Hx Hypercholesterolemia: Yes Hx Hypertension: Yes Hx Pacemaker: Yes Hx Peripheral Edema: Yes - PULMONARY Hx Chronic Obstructive Pulmonary Disease (COPD): Yes Hx Emphysema: Yes Hx Pneumonia: Yes Hx Sleep Apnea: Yes - NEUROLOGICAL Hx Transient Ischemic Attacks (TIA): Yes - HEENT Hx HEENT Problems: No - RENAL Hx Chronic Kidney Disease: No - ENDOCRINE/METABOLIC Hx Hypothyroidism: Yes - HEMATOLOGICAL/ONCOLOGICAL Hx Anemia: Yes - INTEGUMENTARY Hx Dermatological Problems: No - MUSCULOSKELETAL/RHEUMATOLOGICAL Hx Falls: No - GASTROINTESTINAL Hx Gastrointestinal Disorders: No - GENITOURINARY/GYNECOLOGICAL Hx Genitourinary Disorders: No - PSYCHIATRIC Hx Anxiety: Yes Hx Substance Use: No - SURGICAL HISTORY Hx Coronary Artery Bypass Graft: Yes (2008 x4) Hx Coronary Stent: Yes (4) - ANESTHESIA Hx Anesthesia: Yes Hx Anesthesia Reactions: No Hx Malignant Hyperthermia: No Meds Allergies/Adverse Reactions: Allergies Allergy/AdvReac Type Severity Reaction Status Date / Time No Known Drug Allergies Allergy n/a Verified 02/21/18 14:57 Results - Vital Signs Recent Vital Signs: Last Vital Signs Temp 97.7 F 03/05/18 19:55 Pulse 63 03/05/18 19:55 Resp 20 03/05/18 19:55 BP 127/72 03/05/18 19:55 Pulse Ox 98 03/05/18 19:55 - Labs Result Diagrams: 03/05/18 15:32 03/05/18 15:32 Labs: Laboratory Results - last 24 hr 03/05/18 03/05/18 03/05/18 15:32 15:32 15:32 WBC 9.0 RBC 4.08 L Hgb 10.0 L Hct 32.4 L MCV 79.4 L MCH 24.6 L MCHC 30.9 L RDW 17.7 H Plt Count 182 D MPV 8.8 Neut % (Auto) 79.6 H Lymph % (Auto) 12.9 L Castro % (Auto) 4.3 Eos % (Auto) 2.1 Baso % (Auto) 1.1 Neut # (Auto) 7.2 H Lymph # (Auto) 1.2 Castro # (Auto) 0.4 Eos # (Auto) 0.2 Baso # (Auto) 0.1 PT 15.2 H INR 1.4 APTT 28 Sodium 140 Potassium 4.4 Chloride 105 Carbon Dioxide 26 Anion Gap 14 BUN 34 H Creatinine 1.3 Est GFR ( Amer) > 60 Est GFR (Non-Af Amer) 58 Random Glucose 283 H D Calcium 8.6 Total Bilirubin 0.3 AST 38 ALT 31 Alkaline Phosphatase 205 H D Total Creatine Kinase 115 CK-MB (Mass) 1.20 Troponin I 0.0130 Total Protein 7.2 Albumin 3.7 Globulin 3.5 Albumin/Globulin Ratio 1.1 Urine Color Urine Clarity Urine pH Ur Specific [place] Urine Protein Urine Glucose (UA) Urine Ketones Urine Blood Urine Nitrate Urine Bilirubin Urine Urobilinogen Ur Leukocyte Esterase Urine WBC (Auto) Urine RBC (Auto) Ur Squamous Epith Cells Urine Bacteria 03/05/18 17:18 WBC RBC Hgb Hct MCV MCH MCHC RDW Plt Count MPV Neut % (Auto) Lymph % (Auto) Castro % (Auto) Eos % (Auto) Baso % (Auto) Neut # (Auto) Lymph # (Auto) [place] # (Auto) Eos # (Auto) Baso # (Auto) PT INR APTT Sodium Potassium Chloride Carbon Dioxide Anion Gap BUN Creatinine Est GFR ( Amer) Est GFR (Non-Af Amer) Random Glucose Calcium Total Bilirubin AST ALT Alkaline Phosphatase Total Creatine Kinase CK-MB (Mass) Troponin I Total Protein Albumin Globulin Albumin/Globulin Ratio Urine Color Yellow Urine Clarity Clear Urine pH 5.0 Ur Specific [place] 1.011 Urine Protein Negative Urine Glucose (UA) Normal Urine Ketones Negative Urine Blood Negative Urine Nitrate Negative Urine Bilirubin Negative Urine Urobilinogen Normal Ur Leukocyte Esterase Neg Urine WBC (Auto) 1 Urine RBC (Auto) 1 Ur Squamous Epith Cells < 1 Urine Bacteria Rare
[2018-03-06] MEDS: oxyCODONE 30 mg Immediate Release Tab PO PRN ×5 (02:26→22:12)
[2018-03-06] MEDS: Levothyroxine 100 MCG TAB PO SCH (06:03)
[2018-03-06 11:50] LABS: B-TYPE NATRIURETIC PEPTIDE 658 pg/mL (0-900); CK-MB 0.82 ng/mL (0.0-3.38)
--- NOTE | 2018-03-06 15:50 | CP.PCM.PN ---
Subjective - Date & Time of Evaluation Date of Evaluation: 03/06/18 Time of Evaluation: 15:49 - Subjective Subjective: patient seen and examined at the bedside Objective - Vital Signs/Intake and Output Vital Signs (last 24 hours): Temp Pulse Resp BP Pulse Ox 97.3 F L 63 20 123/65 100 03/06/18 07:00 03/06/18 07:10 03/06/18 07:00 03/06/18 09:55 03/06/18 10:00 - Medications Medications: Current Medications Apixaban (Eliquis) 5 mg PO Q12 [facility] Last Admin: 03/06/18 09:54 Dose: 5 mg Carvedilol (Coreg) 25 mg PO BID [facility] Last Admin: 03/06/18 09:55 Dose: 25 mg Clopidogrel Bisulfate (Plavix) 75 mg PO DAILY [facility] Last Admin: 03/06/18 09:54 Dose: 75 mg Digoxin (Digoxin) 0.125 mg PO DAILY@1800 [facility] Furosemide (Lasix) 40 mg PO BID [facility] Last Admin: 03/06/18 09:55 Dose: 40 mg Guaifenesin (Mucinex La) 600 mg PO Q12 PRN PRN Reason: CONGESTION Hydroxychloroquine Sulfate (Plaquenil) 200 mg PO BID [facility]; Protocol Last Admin: 03/06/18 09:54 Dose: 200 mg Levothyroxine Sodium (Synthroid) 100 mcg PO DAILY@0630 [facility] Last Admin: 03/06/18 06:03 Dose: 100 mcg Lisinopril (Zestril) 5 mg PO DAILY [facility] Last Admin: 03/06/18 09:55 Dose: 5 mg Metformin HCl (Glucophage) 500 mg PO BID [facility] Last Admin: 03/06/18 09:55 Dose: Not Given Nitroglycerin (Nitrostat Sl Tab) 0.4 mg SL Q5MIN PRN PRN Reason: chest pain Oxycodone HCl (Oxycodone Immediate Release Tab) 30 mg PO Q4H PRN PRN Reason: Pain, Mild (1-3) Last Admin: 03/06/18 13:46 Dose: 30 mg Rosuvastatin Calcium (Crestor) 40 mg PO HS [facility] Last Admin: 03/05/18 22:39 Dose: 40 mg Sitagliptin Phosphate (Januvia) 50 mg PO DAILY [facility] Last Admin: 03/06/18 09:55 Dose: 50 mg - Labs Labs: 03/05/18 15:32 03/05/18 15:32 PT 15.2 SECONDS (9.7-12.2) H 03/05/18 15:32 INR 1.4 03/05/18 15:32 APTT 28 SECONDS (21-34) 03/05/18 15:32 Assessment and Plan - Assessment and Plan (Free Text) Assessment: follow up with pmd in his office ----call for appointment continue home medication activity as tolerated call dr garsia or go to the emergency room if symptom return or worsening
--- NOTE | 2018-03-06 16:46 | CP.PCM.CON ---
Past Patient History - Infectious Disease Hx of Infectious Diseases: None - Past Medical History & Family History Past Medical History?: Yes - Past Social History Smoking Status: Light Smoker < 10 Cigarettes Daily - CARDIAC Hx Atrial Fibrillation: Yes Hx Cardia Arrhythmia: Yes (AFIB) Hx Congestive Heart Failure: Yes Hx Hypercholesterolemia: Yes Hx Hypertension: Yes Hx Pacemaker: Yes Hx Peripheral Edema: Yes - PULMONARY Hx Chronic Obstructive Pulmonary Disease (COPD): Yes Hx Emphysema: Yes Hx Pneumonia: Yes Hx Sleep Apnea: Yes - NEUROLOGICAL Hx Transient Ischemic Attacks (TIA): Yes - HEENT Hx HEENT Problems: No - RENAL Hx Chronic Kidney Disease: No - ENDOCRINE/METABOLIC Hx Hypothyroidism: Yes - HEMATOLOGICAL/ONCOLOGICAL Hx Anemia: Yes - INTEGUMENTARY Hx Dermatological Problems: No - MUSCULOSKELETAL/RHEUMATOLOGICAL Hx Falls: No - GASTROINTESTINAL Hx Gastrointestinal Disorders: No - GENITOURINARY/GYNECOLOGICAL Hx Genitourinary Disorders: No - PSYCHIATRIC Hx Anxiety: Yes Hx Substance Use: No - SURGICAL HISTORY Hx Coronary Artery Bypass Graft: Yes (2008 x4) Hx Coronary Stent: Yes (4) - ANESTHESIA Hx Anesthesia: Yes Hx Anesthesia Reactions: No Hx Malignant Hyperthermia: No Meds Allergies/Adverse Reactions: Allergies Allergy/AdvReac Type Severity Reaction Status Date / Time No Known Drug Allergies Allergy n/a Verified 02/21/18 14:57 - Medications Medications: Current Medications Apixaban (Eliquis) 5 mg PO Q12 [facility] Last Admin: 03/06/18 09:54 Dose: 5 mg Carvedilol (Coreg) 25 mg PO BID [facility] Last Admin: 03/06/18 09:55 Dose: 25 mg Clopidogrel Bisulfate (Plavix) 75 mg PO DAILY [facility] Last Admin: 03/06/18 09:54 Dose: 75 mg Digoxin (Digoxin) 0.125 mg PO DAILY@1800 [facility] Furosemide (Lasix) 40 mg PO BID [facility] Last Admin: 03/06/18 09:55 Dose: 40 mg Guaifenesin (Mucinex La) 600 mg PO Q12 PRN PRN Reason: CONGESTION Hydroxychloroquine Sulfate (Plaquenil) 200 mg PO BID [facility]; Protocol Last Admin: 03/06/18 09:54 Dose: 200 mg Levothyroxine Sodium (Synthroid) 100 mcg PO DAILY@0630 [facility] Last Admin: 03/06/18 06:03 Dose: 100 mcg Lisinopril (Zestril) 5 mg PO DAILY [facility] Last Admin: 03/06/18 09:55 Dose: 5 mg Metformin HCl (Glucophage) 500 mg PO BID [facility] Last Admin: 03/06/18 09:55 Dose: Not Given Nitroglycerin (Nitrostat Sl Tab) 0.4 mg SL Q5MIN PRN PRN Reason: chest pain Oxycodone HCl (Oxycodone Immediate Release Tab) 30 mg PO Q4H PRN PRN Reason: Pain, Mild (1-3) Last Admin: 03/06/18 13:46 Dose: 30 mg Rosuvastatin Calcium (Crestor) 40 mg PO [facility] Last Admin: 03/05/18 22:39 Dose: 40 mg Sitagliptin Phosphate (Januvia) 50 mg PO DAILY [facility] Last Admin: 03/06/18 09:55 Dose: 50 mg Results - Vital Signs Recent Vital Signs: Last Vital Signs Temp 97.3 F L 03/06/18 07:00 Pulse 77 03/06/18 15:40 Resp 20 03/06/18 07:00 BP 123/65 03/06/18 09:55 Pulse Ox 100 03/06/18 15:40 - Labs Result Diagrams: 03/05/18 15:32 03/05/18 15:32 Labs: Laboratory Results - last 24 hr 03/05/18 03/06/18 03/06/18 17:18 11:09 11:16 POC Glucose (mg/dL) 208 H Total Creatine Kinase 70 CK-MB (Mass) 0.82 Troponin I < 0.0120 NT-Pro-B Natriuret Pep 658 Urine Color Yellow Urine Clarity Clear Urine pH 5.0 Ur Specific [place] 1.011 Urine Protein Negative Urine Glucose (UA) Normal Urine Ketones Negative Urine Blood Negative Urine Nitrate Negative Urine Bilirubin Negative Urine Urobilinogen Normal Ur Leukocyte Esterase Neg Urine WBC (Auto) 1 Urine RBC (Auto) 1 Ur Squamous Epith Cells < 1 Urine Bacteria Rare
[2018-03-06] MEDS ORDERED: Digoxin 125 mcg (0.125 mg) Tab PO SCH (18:00)
[2018-03-06 18:03] VITALS: PULSE 72
--- NOTE | 2018-03-06 20:58 | CP.PCM.CON ---
History of Present Illness - History of Present Illness History of Present Illness: 52yo male with history of HTN, HCH, COPD, CHF, AFIB, CAD, CABG, coronary stent and pacemaker, comes to ER reporting mid-sternal chest pain, occuring 30 minutes prior to arrival. Patient states he took 1 tab of NTG SL, with relief of sy mptoms. Patient states he also took 1 tab of baby aspirin, which he takes daily. He otherwise denies any sweats, radiation of pain or syncopal episode. Patient denies shortness of breath, abdominal pain, and offers no additional complaints. PMD: Dr. Amor Taxi Driver: Dr. Dyer ([facility]) Chief Complaint (Nursing): Chest Pain History Per: Patient History/Exam Limitations: no limitations Onset/Duration Of Symptoms: Mins (30) Current Symptoms Are (Timing): Better Quality: Pressure, "Pain" Associated Symptoms: denies: Nausea, Dyspnea, Diaphoresis, Syncope Nitro Therapy Administered: 1, Per Own Supply, Partial Relief Additional History Per: Patient Past Medical History Reviewed: Historical Data, Nursing Documentation, Vital Signs Vital Signs: Last Vital Signs Temp 98.1 F 03/05/18 14:08 Pulse 67 03/05/18 14:08 Resp 20 03/05/18 14:08 BP 105/61 03/05/18 14:08 Pulse Ox 98 03/05/18 14:08 - Medical History PMH: Anemia, Anxiety, Atrial Fibrillation, Back Problems, CAD, Cardia Arrhythmia (AFIB), CHF, COPD, Diabetes, Deep Vein Thrombosis, Emphysema, Graves' Disease, HTN, Hypercholesterolemia, Hypothyroidism, Peripheral Edema, Pneumonia, Sleep Apnea, TIA Denies: Chronic Kidney Disease Surgical History: CABG (2008 x4), Coronary Stent (4), Pacemaker - [facility] Procedures ASSISTANCE WITH RESPIRATORY VENTILATION, 24-96 HRS, CPAP (10/15/15) INJECT/INFUSE NEC (10/09/12) Family History: States: No Known Family Hx - Social History Hx Tobacco Use: Yes Hx Alcohol Use: No Hx Substance Use: No - Immunization History Hx Tetanus Toxoid Vaccination: Yes Hx Influenza Vaccination: Yes Hx Pneumococcal Vaccination: Yes Review Of Systems Except As Marked, All Systems Reviewed And Found Negative. Constitutional: Negative for: Fever, Chills, Sweats Cardiovascular: Positive for: Chest Pain Respiratory: Negative for: Shortness of Breath Gastrointestinal: Negative for: Vomiting, Abdominal Pain Physical Exam - Physical Exam Appears: Non-toxic Skin: Normal Color, Warm, Dry Head: Normacephalic Eye(s): bilateral: Normal Inspection Oral Mucosa: Moist Neck: Normal ROM, Supple Chest: Symmetrical Cardiovascular: Rhythm Regular Respiratory: Normal Breath Sounds Gastrointestinal/Abdominal: Normal Exam, Soft Back: Normal Inspection Extremity: Normal ROM, Pedal Edema Neurological/Psych: Oriented x3 Past Patient History - Infectious Disease Hx of Infectious Diseases: None - Past Medical History & Family History Past Medical History?: Yes - Past Social History Smoking Status: Light Smoker < 10 Cigarettes Daily - CARDIAC Hx Atrial Fibrillation: Yes Hx Cardia Arrhythmia: Yes (AFIB) Hx Congestive Heart Failure: Yes Hx Hypercholesterolemia: Yes Hx Hypertension: Yes Hx Pacemaker: Yes Hx Peripheral Edema: Yes - PULMONARY Hx Chronic Obstructive Pulmonary Disease (COPD): Yes Hx Emphysema: Yes Hx Pneumonia: Yes Hx Sleep Apnea: Yes - NEUROLOGICAL Hx Transient Ischemic Attacks (TIA): Yes - HEENT Hx HEENT Problems: No - RENAL Hx Chronic Kidney Disease: No - ENDOCRINE/METABOLIC Hx Hypothyroidism: Yes - HEMATOLOGICAL/ONCOLOGICAL Hx Anemia: Yes - INTEGUMENTARY Hx Dermatological Problems: No - MUSCULOSKELETAL/RHEUMATOLOGICAL Hx Falls: No - GASTROINTESTINAL Hx Gastrointestinal Disorders: No - GENITOURINARY/GYNECOLOGICAL Hx Genitourinary Disorders: No - PSYCHIATRIC Hx Anxiety: Yes Hx Substance Use: No - SURGICAL HISTORY Hx Coronary Artery Bypass Graft: Yes (2008 x4) Hx Coronary Stent: Yes (4) - ANESTHESIA Hx Anesthesia: Yes Hx Anesthesia Reactions: No Hx Malignant Hyperthermia: No Meds Allergies/Adverse Reactions: Allergies Allergy/AdvReac Type Severity Reaction Status Date / Time No Known Drug Allergies Allergy n/a Verified 02/21/18 14:57 - Medications Medications: Current Medications Apixaban (Eliquis) 5 mg PO Q12 [facility] Last Admin: 03/06/18 09:54 Dose: 5 mg Carvedilol (Coreg) 25 mg PO BID [facility] Last Admin: 03/06/18 18:01 Dose: 25 mg Clopidogrel Bisulfate (Plavix) 75 mg PO DAILY [facility] Last Admin: 03/06/18 09:54 Dose: 75 mg Digoxin (Digoxin) 0.125 mg PO DAILY@1800 [facility] Last Admin: 03/06/18 18:01 Dose: 0.125 mg Furosemide (Lasix) 40 mg PO BID [facility] Last Admin: 03/06/18 18:01 Dose: 40 mg Guaifenesin (Mucinex La) 600 mg PO Q12 PRN PRN Reason: CONGESTION Hydroxychloroquine Sulfate (Plaquenil) 200 mg PO BID [facility]; Protocol Last Admin: 03/06/18 18:02 Dose: 200 mg Levothyroxine Sodium (Synthroid) 100 mcg PO DAILY@0630 [facility] Last Admin: 03/06/18 06:03 Dose: 100 mcg Lisinopril (Zestril) 5 mg PO DAILY [facility] Last Admin: 03/06/18 09:55 Dose: 5 mg Metformin HCl (Glucophage) 500 mg PO BID [facility] Last Admin: 03/06/18 09:55 Dose: Not Given Nitroglycerin (Nitrostat Sl Tab) 0.4 mg SL Q5MIN PRN PRN Reason: chest pain Oxycodone HCl (Oxycodone Immediate Release Tab) 30 mg PO Q4H PRN PRN Reason: Pain, Mild (1-3) Last Admin: 03/06/18 18:01 Dose: 30 mg Rosuvastatin Calcium (Crestor) 40 mg PO HS [facility] Last Admin: 03/05/18 22:39 Dose: 40 mg Sitagliptin Phosphate (Januvia) 50 mg PO DAILY [facility] Last Admin: 03/06/18 09:55 Dose: 50 mg Results - Vital Signs Recent Vital Signs: Last Vital Signs Temp 97.9 F 03/06/18 15:40 Pulse 65 03/06/18 15:40 Resp 20 03/06/18 15:40 BP 125/68 03/06/18 18:01 Pulse Ox 100 03/06/18 15:40 - Labs Result Diagrams: 03/05/18 15:32 03/05/18 15:32 Labs: Laboratory Results - last 24 hr 03/06/18 03/06/18 11:09 11:16 POC Glucose (mg/dL) 208 H Total Creatine Kinase 70 CK-MB (Mass) 0.82 Troponin I < 0.0120 NT-Pro-B Natriuret Pep 658 Assessment & Plan - Assessment and Plan (Free Text) Assessment: 52 M admitted for atypical chest pain Hx of CHF, HTN, CAD s/p CABG, PPM [place] normal proBNP normal ECHO Thursday Patient had a stress test done with Dr. Renee Dyer reportedly normal Continue all meds
--- NOTE | 2018-03-06 21:06 | CP.PCM.PN ---
Subjective - Subjective Subjective: dictated Objective - Vital Signs/Intake and Output Vital Signs (last 24 hours): Temp Pulse Resp BP Pulse Ox 97.9 F 65 20 125/68 100 03/06/18 15:40 03/06/18 15:40 03/06/18 15:40 03/06/18 18:01 03/06/18 15:40 - Medications Medications: Current Medications Apixaban (Eliquis) 5 mg PO Q12 [facility] Last Admin: 03/06/18 09:54 Dose: 5 mg Carvedilol (Coreg) 25 mg PO BID [facility] Last Admin: 03/06/18 18:01 Dose: 25 mg Clopidogrel Bisulfate (Plavix) 75 mg PO DAILY [facility] Last Admin: 03/06/18 09:54 Dose: 75 mg Digoxin (Digoxin) 0.125 mg PO DAILY@1800 [facility] Last Admin: 03/06/18 18:01 Dose: 0.125 mg Furosemide (Lasix) 40 mg PO BID [facility] Last Admin: 03/06/18 18:01 Dose: 40 mg Guaifenesin (Mucinex La) 600 mg PO Q12 PRN PRN Reason: CONGESTION Hydroxychloroquine Sulfate (Plaquenil) 200 mg PO BID [facility]; Protocol Last Admin: 03/06/18 18:02 Dose: 200 mg Levothyroxine Sodium (Synthroid) 100 mcg PO DAILY@0630 [facility] Last Admin: 03/06/18 06:03 Dose: 100 mcg Lisinopril (Zestril) 5 mg PO DAILY [facility] Last Admin: 03/06/18 09:55 Dose: 5 mg Metformin HCl (Glucophage) 500 mg PO BID [facility] Last Admin: 03/06/18 09:55 Dose: Not Given Nitroglycerin (Nitrostat Sl Tab) 0.4 mg SL Q5MIN PRN PRN Reason: chest pain Oxycodone HCl (Oxycodone Immediate Release Tab) 30 mg PO Q4H PRN PRN Reason: Pain, Mild (1-3) Last Admin: 03/06/18 18:01 Dose: 30 mg Rosuvastatin Calcium (Crestor) 40 mg PO HS [facility] Last Admin: 03/05/18 22:39 Dose: 40 mg Sitagliptin Phosphate (Januvia) 50 mg PO DAILY [facility] Last Admin: 03/06/18 09:55 Dose: 50 mg - Labs Labs: 03/05/18 15:32 03/05/18 15:32 PT 15.2 SECONDS (9.7-12.2) H 03/05/18 15:32 INR 1.4 03/05/18 15:32 APTT 28 SECONDS (21-34) 03/05/18 15:32
[2018-03-07 01:51] VITALS: TEMP 98.3; O2SAT 95
[2018-03-07] MEDS: oxyCODONE 30 mg Immediate Release Tab PO PRN ×3 (02:43→10:34)
--- NOTE | 2018-03-07 02:59 | PN ---
DATE: 03/06/2018 SUBJECTIVE: The patient still has shortness of breath and chest pain. No fever, no chills, no shortness of breath. He has orthopnea. No PND. PHYSICAL EXAMINATION: VITAL SIGNS: Blood pressure is 125/68, pulse 65, respiratory rate 20, and temperature 97.9. LUNGS: Bilateral basal rales. Decreased air entry. CARDIOVASCULAR SYSTEM: S1, S2, plus S3 positive. ABDOMEN: Soft. ASSESSMENT: 1. Acute exacerbation of congestive heart failure. 2. Coronary artery disease, rule out myocardial infarction. 3. Type 2 diabetes. 4. Sleep apnea. PLAN: Continue current medication. Monitor the patient. Ousmane Amor MD
--- NOTE | 2018-03-07 05:20 | HP ---
CHIEF COMPLAINT: Chest pain. HISTORY OF PRESENT ILLNESS: This is a 52-year-old male, well known to me, with a history of coronary artery disease, status post CABG and then later on angioplasty, history of congestive heart failure with AICD placed, hypertension, type 2 diabetes, morbid obesity, systemic lupus erythematosus, obstructive sleep apnea, hypothyroidism, anemia, osteoarthritis of lumbar spine. He is nonsmoker. He drinks socially. He denies any substance abuse. He claims to be compliant with his diet, medication and followup who came in because about an hour prior to arrival in the ER, he had dull left precordial chest pain, nonradiating, not associated with diaphoresis or dizziness. It was nonexertional while he was standing in the kitchen in his brother's house in [place]. Along with that, he denies any pleurisy, dyspepsia, nausea, or vomiting. He denies any polyuria, polydipsia, or polyphagia. He denies any hematuria or pyuria. He has sneezing and itchy eyes. He denies any hip pain or knee pain, but he has tingling, numbness and paresthesias of the legs. He has chronic lower extremity swelling. He has pain in the lower back, radiating to bilateral buttocks. There is no history of syncope. There is no history of abdominal pain, nausea, vomiting or diarrhea. PAST MEDICAL HISTORY: As above. SOCIAL HISTORY: He is a nonsmoker. Social EtOH user. CURRENT MEDICATIONS: At home, he is on sublingual nitroglycerin, Percocet, Glucophage, Januvia, Phenergan syrup, Zestril, Synthroid, Plaquenil, Mucinex, Lasix, Plavix, digoxin, Coreg, Lipitor, Eliquis. PHYSICAL EXAMINATION: GENERAL: Middle-aged male, in no acute distress. VITAL SIGNS: Blood pressure 126/69, pulse 65, respiratory rate 20, temperature 97.9. SKIN: The patient has chronic changes in the legs. HEENT: Atraumatic and normocephalic. Positive pallor. Negative jaundice. Extraocular movements are intact. NECK: Supple. Using accessory muscles while respiration. No JVD. No lymph node. No thyromegaly. CHEST WALL: Bilateral symmetrical expansion with gynecomastia. CHEST: Normal shape. LUNGS: Bilateral equal air entry. Positive rales. Positive rhonchi. CARDIOVASCULAR SYSTEM: S1 and S2 plus S3 positive. Has 2/6 ejection systolic murmur. RECTAL: No masses. No bleeding. Prostate is enlarged. EXTREMITIES: +3 nonpitting edema. CENTRAL NERVOUS SYSTEM: Awake, alert, and oriented x3. Cranial nerves II through XII are normal. Power 5/5 x4. Plantar's are downgoing. ASSESSMENT: 1. Chest pain, rule out myocardial infarction in a patient with known coronary artery disease, status post coronary artery bypass graft and angioplasty. 2. Obstructive sleep apnea. 3. Morbid obesity. 4. Type 2 diabetes. 5. Lupus erythematosus. PLAN: Admit. Detailed orders written. Seen and examined. Ousmane Amor MD
[2018-03-07] MEDS: Levothyroxine 100 MCG TAB PO SCH (05:58)
[2018-03-07 09:17] VITALS: PULSE 72
[2018-03-07 09:44] VITALS: BP 137/78
--- NOTE | 2018-03-08 07:39 | IP.NPCORE ---
Heart Failure Core Measure - Heart Failure Ejection Fraction: 40 % or Greater JEANNE Inhibitor Prescribed: Yes Angiotensin II Receptor Rian Prescribed: No Contraindication/Reason for not providing: on JEANNE AnticoagulationTherapy for Atrial Fibrillation/Atrialflutter: Yes Aldosterone Antagonist Prescribed: No Contraindication/Reason for not providing: EF IS GREATER THAN 40 Hydralazine Nitrate Prescribed: No Contraindication/Reason for not providing: EF IS GREATER THAN 40 Implantable Cardioverter Defibrillator Therapy: No Contraindication/Reason for not providing: HAS AN AICD Cardiac Resynchronization Therapy Prescribed: No Contraindication/Reason for not providing: HAS AN AICD - Follow up Will be discharged to: Home Follow Up Date (must be within 7 days from discharge): 03/11/18 Follow Up Time: 09:00
--- NOTE | 2018-03-08 13:04 | CARD ---
APPROVED REPORT Date of service: 03/05/2018 EKG Measurement Heart [id number] <Conclusion> Normal Sinus Atrial-sensed ventricular-paced rhythm Abnormal ECG
== END 2018-03-07 11:20 | disposition home or self-care (01) ==
LOC: C.ER 13:59 → C.6T 18:10
PROVIDERS: ADMIT Internal Medicine; ATTEND Internal Medicine
DX: R07.9 Chest pain, unspecified (principal); I11.0 Hypertensive heart disease with heart failure; I25.10 Atherosclerotic heart disease of native coronary artery without angina pectoris; I48.91 Unspecified atrial fibrillation; J44.9 Chronic obstructive pulmonary disease, unspecified; E78.00 Pure hypercholesterolemia, unspecified; I50.9 Heart failure, unspecified; E11.9 Type 2 diabetes mellitus without complications; E03.9 Hypothyroidism, unspecified; E66.01 Morbid (severe) obesity due to excess calories; G47.33 Obstructive sleep apnea (adult) (pediatric); M32.9 Systemic lupus erythematosus, unspecified; Z86.73 Personal history of transient ischemic attack (TIA), and cerebral infarction without residual deficits; Z87.01 Personal history of pneumonia (recurrent); Z87.891 Personal history of nicotine dependence; Z95.0 Presence of cardiac pacemaker; Z95.1 Presence of aortocoronary bypass graft; Z95.5 Presence of coronary angioplasty implant and graft
CPT/HCPCS: 36415; 71045; 80053; 81001; 82550; 82553; 82948; 83880; 84484; 85025; 85610; 85730; 99285; G0378

== ENCOUNTER 2018-03-29 20:16 | Observation (INO) | payer MEDICARE, OTHER ==
[2018-03-29 20:16] VITALS: PULSE 72; BMI 48.3
[2018-03-29] MEDS ORDERED: Aspirin 325 mg EC Tablets PO STA (21:13)
--- NOTE | 2018-03-29 21:13 | C.PDOC ---
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 Patient states he took 2 SL nitro and the pain subsided. Patient states his pain was dull aching, but now is in no acute distress. Patient was seen in the ED on 03/05 with a negative workup. Patient denies fever chills, nausea, vomit, diarrhea, SOB, palpitations, weakness, numbness. Time Seen by Provider: 03/29/18 21:13 Chief Complaint (Nursing): Chest Pain History Per: Patient History/Exam Limitations: no limitations Onset/Duration Of Symptoms: Mins (30) Current Symptoms Are (Timing): Better Context: Other Severity: Moderate Pain Scale Rating Of: 4 Quality: Dull, Aching Associated Symptoms: Dyspnea. denies: Nausea Modifying Factors: None Exacerbating Factors: Movement, Exertion Alleviating Factors: Rest Nitro Therapy Administered: 2, Per Own Supply, Complete Relief Recent travel outside of the [place]: No Additional History Per: Patient Past Medical History Reviewed: Historical Data, Nursing Documentation, Vital Signs Vital Signs: Last Vital Signs Temp 98.0 F 03/29/18 20:27 Pulse 91 H 03/29/18 20:27 Resp 20 03/29/18 20:27 BP 117/73 03/29/18 20:27 Pulse Ox 97 03/29/18 20:27 - Medical History PMH: Anemia, Anxiety, Atrial Fibrillation, Back Problems, CAD, Cardia Arrhythmia (AFIB), CHF, COPD, Diabetes, Deep Vein Thrombosis, Emphysema, Graves' Disease, HTN, Hypercholesterolemia, Hypothyroidism, Peripheral Edema, Pneumonia, Sleep Apnea, TIA Denies: Chronic Kidney Disease Surgical History: CABG (2008 x4), Coronary Stent (4), Pacemaker - [facility] Procedures ASSISTANCE WITH RESPIRATORY VENTILATION, 24-96 HRS, CPAP (10/15/15) INJECT/INFUSE NEC (10/09/12) Family History: States: Unknown Family Hx - Social History Hx Tobacco Use: Yes Hx Alcohol Use: No Hx Substance Use: No - Immunization History Hx Tetanus Toxoid Vaccination: Yes Hx Influenza Vaccination: No Hx Pneumococcal Vaccination: No Review Of Systems Constitutional: Negative for: Fever, Chills Eyes: Negative for: Vision Change Cardiovascular: Positive for: Chest Pain. Negative for: Palpitations Respiratory: Negative for: Cough, Shortness of Breath Gastrointestinal: Negative for: Nausea, Vomiting, Abdominal Pain Genitourinary: Negative for: Dysuria Skin: Negative for: Rash Neurological: Negative for: Weakness, Numbness, Headache, Dizziness Psych: Negative for: Anxiety Physical Exam - Physical Exam Appears: Non-toxic Skin: Warm, Dry Head: Normacephalic Eye(s): bilateral: Normal Inspection Oral Mucosa: Moist Neck: Supple Chest: Symmetrical, Other (pacemaker left side) Cardiovascular: Rhythm Regular Respiratory: Rales (bases), No Rhonchi, No Wheezing Gastrointestinal/Abdominal: Soft, No Tenderness, No Guarding, No Rebound Back: Normal Inspection Extremity: Pedal Edema, No Calf Tenderness, Swelling Extremity: Bilateral: Atraumatic Pulses: Left Dorsalis Pedis: Normal, Right Dorsalis Pedis: Normal Neurological/Psych: Oriented x3 Gait: Steady ED Course And Treatment - Laboratory Results Result Diagrams: 03/29/18 21:28 03/29/18 21:28 ECG: Interpreted By Me, Viewed By Me ECG Rhythm: Sinus Rhythm (84), Nonspecific Changes (atrial sensed, ventricular paced) O2 Sat by Pulse Oximetry: 97 (ON RA) Pulse Ox Interpretation: Normal - Radiology CXR: Interpreted by Me, Viewed By Me CXR Interpretation: Yes: Cardiomegaly, Other (pacer left, ). No: Infiltrates, Fracture Progress Note: Plan: - EKG. - Labs. - CXR. - Aspirin 325 mg PO. - Lasix 40 mg IVP. - UA Disposition Discussed With : Ousmane Amor Comment: accepted the pt on his servie and took over the care at 10:04 PM Doctor Will See Patient In The: Hospital Counseled Patient/Family Regarding: Studies Performed, Diagnosis - Disposition Disposition: HOSPITALIZED Disposition Time: 22:04 Condition: FAIR Forms: [facility] ([place]) - POA Present On Arrival: Poor Glycemic Control - Clinical Impression Clinical Impression: Dyspnea, Chest pain, Morbid obesity with BMI of 45.0-49.9, adult - Scribe Statement The provider has reviewed the documentation as recorded by the Scribe Mushtaq Seymour All medical record entries made by the Scribe were at my direction and personally dictated by me. I have reviewed the chart and agree that the record accurately reflects my personal performance of the history, physical exam, medical decision making, and the department course for this patient. I have also personally directed, reviewed, and agree with the discharge instructions and disposition. Decision To Admit - Pt Status Changed To: Hospital Disposition Of: Observation - . Bed Request Type: Telemetry Admitting Physician: Ousmane Amor Patient Diagnosis: Dyspnea, Chest pain, Morbid obesity with BMI of 45.0-49.9, adult
[2018-03-29 21:34] LABS: BASO % 0.2 % (0.0-2.0); EOS # 0.1 K/uL (0.0-0.7); HEMOGLOBIN 9.7 g/dL (12.0-18.0); LYMPH # 1.3 K/uL (1.0-4.3); LYMPH % 19.4 % (20.0-40.0); MEAN CELL VOLUME 78.9 fL (80.0-94.0); MEAN CORPUSCULAR HGB CONC 30.4 g/dL (33.0-37.0); MEAN PLATELET VOLUME 7.9 fL (7.2-11.7); MONO # 0.5 K/uL (0.0-0.8); MONO % 7.7 % (0.0-10.0); NEUT # 4.6 K/uL (1.8-7.0); NEUT % 70.7 % (50.0-75.0); NRBC % 0.1 % (0.0-2.0); RBC 4.05 Mil/uL (4.40-5.90); RED CELL DISTRIBUTION WIDTH 16.7 % (11.5-14.5); WHITE BLOOD COUNT 6.5 K/uL (4.8-10.8)
[2018-03-29 21:41] LABS: INR 1.3; PROTHROMBIN TIME 13.9 SECONDS (9.7-12.2)
[2018-03-29 21:47] LABS: ALT/SGPT 15 U/L (21-72); AST/SGOT 28 U/L (17-59); BLOOD UREA NITROGEN 44 mg/dL (9-20); CALCIUM 8.6 mg/dl (8.6-10.4); GFR NON-AFRICAN AMERICAN 50; LIPASE 75 U/L (23-300)
[2018-03-29 21:57] LABS: B-TYPE NATRIURETIC PEPTIDE 815 pg/mL (0-900)
[2018-03-29] MEDS ORDERED: guaiFENesin 600 mg ER Tab PO PRN (22:32)
[2018-03-29 23:06] LABS: SQUAMOUS EPITHIAL 1 /hpf (0-5); URINE BACTERIA RARE (<OCC); URINE BILIRUBIN NEGATIVE (NEGATIVE); URINE BLOOD NEGATIVE (NEGATIVE); URINE CLARITY Clear (Clear); URINE COLOR Yellow (YELLOW); URINE GLUCOSE (UA) NORMAL (Normal); URINE LEUKOCYTE ESTERASE NEG Leu/uL (Negative); URINE PROTEIN NEGATIVE (NEGATIVE); URINE UROBILINOGEN NORMAL mg/dL (0.2-1.0)
[2018-03-29] MEDS: oxyCODONE 30 mg Immediate Release Tab PO PRN (23:10)
[2018-03-29] MEDS ORDERED: oxyCODONE 30 mg Immediate Release Tab ONE (23:12)
[2018-03-30] MEDS ORDERED: oxyCODONE 30 mg Immediate Release Tab ONE ×4 (04:09→17:10)
[2018-03-30] MEDS: oxyCODONE 30 mg Immediate Release Tab PO PRN ×4 (04:20→17:11)
[2018-03-30 05:10] LABS: CK-MB 0.49 ng/mL (0.0-3.38)
[2018-03-30] MEDS ORDERED: (Novolog) Insulin Aspart, Recombinant 100 u/ml 10 ml vial ONE ×3 (09:03→17:27)
[2018-03-30] MEDS: (Novolog) Insulin Aspart, Recombinant 100 u/ml 10 ml vial SC SCH ×3 (09:20→17:25)
[2018-03-30] MEDS ORDERED: Levothyroxine 100 MCG TAB PO SCH (10:00)
[2018-03-30 11:21] LABS: CK-MB 0.49 ng/mL (0.0-3.38); TROPONIN I 0.014 ng/mL (0.00-0.120)
--- NOTE | 2018-03-30 11:34 | RAD ---
HISTORY: chest pain COMPARISON: Chest x-ray performed 03/05/18 TECHNIQUE: Chest, one view. FINDINGS: Examination limited by habitus. LUNGS: No focal consolidation. Please note that chest x-ray has limited sensitivity for the detection of pulmonary masses. PLEURA: No significant pleural effusion identified. No definite pneumothorax . CARDIOVASCULAR: Cardiomegaly. Atherosclerotic calcifications. Median sternotomy wires. Left-sided AICD. OSSEOUS STRUCTURES: Degenerative changes. VISUALIZED UPPER ABDOMEN: Unremarkable. OTHER FINDINGS: None. IMPRESSION: No focal consolidation.
--- NOTE | 2018-03-30 12:03 | CP.PCM.HP ---
Present on Admission - Present on Admission Any Indicators Present on Admission: Yes History of Uncontrolled Diabetes: Yes Past Patient History - Infectious Disease Hx of Infectious Diseases: None - Past Medical History & Family History Past Medical History?: Yes - Past Social History Smoking Status: Light Smoker < 10 Cigarettes Daily - CARDIAC Hx Atrial Fibrillation: Yes Hx Cardia Arrhythmia: Yes (AFIB) Hx Congestive Heart Failure: Yes Hx Hypercholesterolemia: Yes Hx Hypertension: Yes Hx Pacemaker: Yes Hx Peripheral Edema: Yes - PULMONARY Hx Chronic Obstructive Pulmonary Disease (COPD): Yes Hx Emphysema: Yes Hx Pneumonia: Yes Hx Sleep Apnea: Yes - NEUROLOGICAL Hx Transient Ischemic Attacks (TIA): Yes - HEENT Hx HEENT Problems: No - RENAL Hx Chronic Kidney Disease: No - ENDOCRINE/METABOLIC Hx Hypothyroidism: Yes - HEMATOLOGICAL/ONCOLOGICAL Hx Anemia: Yes - INTEGUMENTARY Hx Dermatological Problems: No - MUSCULOSKELETAL/RHEUMATOLOGICAL Hx Falls: No - GASTROINTESTINAL Hx Gastrointestinal Disorders: No - GENITOURINARY/GYNECOLOGICAL Hx Genitourinary Disorders: No - PSYCHIATRIC Hx Anxiety: Yes Hx Substance Use: No - SURGICAL HISTORY Hx Coronary Artery Bypass Graft: Yes (2008 x4) Hx Coronary Stent: Yes (4) - ANESTHESIA Hx Anesthesia: Yes Hx Anesthesia Reactions: No Hx Malignant Hyperthermia: No Meds Allergies/Adverse Reactions: Allergies Allergy/AdvReac Type Severity Reaction Status Date / Time No Known Drug Allergies Allergy n/a Verified 03/29/18 20:29 Results - Vital Signs Recent Vital Signs: Last Vital Signs Temp 98.7 F 03/30/18 04:02 Pulse 75 03/30/18 04:02 Resp 18 03/30/18 04:02 BP 146/74 03/30/18 09:49 Pulse Ox 95 03/30/18 04:02 - Labs Result Diagrams: 03/29/18 21:28 03/29/18 21:28 Labs: Laboratory Results - last 24 hr 03/29/18 03/29/18 03/29/18 21:28 21:28 21:28 WBC 6.5 RBC 4.05 L Hgb 9.7 L Hct 31.9 L MCV 78.9 L MCH 24.0 L MCHC 30.4 L RDW 16.7 H Plt Count 210 MPV 7.9 Neut % (Auto) 70.7 Lymph % (Auto) 19.4 L [place] % (Auto) 7.7 Eos % (Auto) 2.0 Baso % (Auto) 0.2 Neut # (Auto) 4.6 Lymph # (Auto) 1.3 [place] # (Auto) 0.5 Eos # (Auto) 0.1 Baso # (Auto) 0.0 PT 13.9 H INR 1.3 APTT 35 H Sodium 138 Potassium 4.9 Chloride 104 Carbon Dioxide 27 Anion Gap 13 BUN 44 H Creatinine 1.5 Est GFR ( Amer) 60 Est GFR (Non-Af Amer) 50 POC Glucose (mg/dL) Random Glucose 182 H D Calcium 8.6 Total Bilirubin 0.3 AST 28 ALT 15 L D Alkaline Phosphatase 139 H D Total Creatine Kinase CK-MB (Mass) Troponin I < 0.0120 NT-Pro-B Natriuret Pep 815 Total Protein 7.7 Albumin 4.0 Globulin 3.8 Albumin/Globulin Ratio 1.0 Lipase 75 Urine Color Urine Clarity Urine pH Ur Specific [place] Urine Protein Urine Glucose (UA) Urine Ketones Urine Blood Urine Nitrate Urine Bilirubin Urine Urobilinogen Ur Leukocyte Esterase Urine WBC (Auto) Urine RBC (Auto) Ur Squamous Epith Cells Urine Bacteria 03/29/18 03/29/18 03/30/18 22:57 23:06 04:40 WBC RBC Hgb Hct MCV MCH MCHC RDW Plt Count MPV Neut % (Auto) Lymph % (Auto) [place] % (Auto) Eos % (Auto) Baso % (Auto) Neut # (Auto) Lymph # (Auto) [place] # (Auto) Eos # (Auto) Baso # (Auto) PT INR APTT Sodium Potassium Chloride Carbon Dioxide Anion Gap BUN Creatinine Est GFR ( Amer) Est GFR (Non-Af Amer) POC Glucose (mg/dL) 190 H Random Glucose Calcium Total Bilirubin AST ALT Alkaline Phosphatase Total Creatine Kinase 74 CK-MB (Mass) 0.49 Troponin I < 0.0120 NT-Pro-B Natriuret Pep Total Protein Albumin Globulin Albumin/Globulin Ratio Lipase Urine Color Yellow Urine Clarity Clear Urine pH 5.0 Ur Specific [place] 1.010 Urine Protein Negative Urine Glucose (UA) Normal Urine Ketones Negative Urine Blood Negative Urine Nitrate Negative Urine Bilirubin Negative Urine Urobilinogen Normal Ur Leukocyte Esterase Neg Urine WBC (Auto) 1 Urine RBC (Auto) 1 Ur Squamous Epith Cells 1 Urine Bacteria Rare 03/30/18 03/30/18 03/30/18 08:31 10:31 11:56 WBC RBC Hgb Hct MCV MCH MCHC RDW Plt Count MPV Neut % (Auto) Lymph % (Auto) [place] % (Auto) Eos % (Auto) Baso % (Auto) Neut # (Auto) Lymph # (Auto) [place] # (Auto) Eos # (Auto) Baso # (Auto) PT INR APTT Sodium Potassium Chloride Carbon Dioxide Anion Gap BUN Creatinine Est GFR ( Amer) Est GFR (Non-Af Amer) POC Glucose (mg/dL) 176 H 259 H Random Glucose Calcium Total Bilirubin AST ALT Alkaline Phosphatase Total Creatine Kinase CK-MB (Mass) 0.49 Troponin I 0.0140 NT-Pro-B Natriuret Pep Total Protein Albumin Globulin Albumin/Globulin Ratio Lipase Urine Color Urine Clarity Urine pH Ur Specific [place] Urine Protein Urine Glucose (UA) Urine Ketones Urine Blood Urine Nitrate Urine Bilirubin Urine Urobilinogen Ur Leukocyte Esterase Urine WBC (Auto) Urine RBC (Auto) Ur Squamous Epith Cells Urine Bacteria
[2018-03-30] MEDS ORDERED: Ferric Sodium Gluconat Complex 62.5 mg/5 ml Vial IVPB SCH (12:15)
[2018-03-30] MEDS ORDERED: Ferric Sodium Gluconat Complex 125 MG in Sodium Chloride 0.9% 100 ML IVPB SCH (14:00)
[2018-03-30 14:57] VITALS: BP 103/71; RESP 20; TEMP 98.5
[2018-03-30 16:30] VITALS: PULSE 90
[2018-03-30 16:54] VITALS: O2SAT 99
[2018-03-30] MEDS ORDERED: Digoxin 125 mcg (0.125 mg) Tab PO SCH (18:00)
--- NOTE | 2018-03-30 20:30 | CARD ---
APPROVED REPORT Date of service: 03/29/2018 EKG Measurement Heart [id number] <Conclusion> Atrial-sensed ventricular-paced rhythm Abnormal ECG
[2018-03-30] MEDS ORDERED: Rosuvastatin Calcium 2.5 mg Tab PO SCH (22:00)
--- NOTE | 2018-03-31 06:00 | HP ---
CHIEF COMPLAINT: Chest pain. HISTORY OF PRESENT ILLNESS: This is a 52-year-old male, well known to me, with a history of morbid obesity, obstructive sleep apnea, systemic lupus erythematosus, iron deficiency anemia, coronary artery disease, status post CABG, status post multiple cardiac caths and angioplasties, AICD in place, hypothyroidism, hypertension who is noncompliant with diet, medication and followup, and chronic low back pain. The patient came in because of left precordial chest pain, dull, nonradiating, not associated with diaphoresis, dizziness. Positive cough. Positive nasal congestion. The patient denies any fever, chills, or rigors. He has back pain, hip pain, . He denies any history of polyuria, polydipsia, or polyphagia. He denies any history of hematuria or pyuria. He has nasal congestion and wheezing. Denies any history of trauma, fall, or loss of consciousness. 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 This is as per the patient. There is no history of seizure-like activity. He has tingling and numbness in the feet. He has chronic venous changes in the legs. He denies any history of trauma or fall. PAST MEDICAL HISTORY: Systemic lupus erythematosus, iron deficiency, hypertension, congestive heart failure, hypothyroidism, coronary artery disease, AICD. SOCIAL HISTORY: Nonsmoker. Denies drinking or drugs. FAMILY HISTORY: Negative for premature coronary artery disease. CURRENT MEDICATIONS: Have been reviewed. PHYSICAL EXAMINATION: GENERAL: Middle-aged male, in no acute distress, complaining of chest pain which is dull. VITAL SIGNS: Blood pressure 117/73, pulse 71, respiratory rate 20, and temperature 98. SKIN: Chronic changes positive. Hypertrophic changes in the legs with +4 nonpitting edema. HEENT: Atraumatic and normocephalic. Positive pallor. Negative jaundice. Extraocular movements are intact. NECK: Supple. No JVD. No lymph node. No thyromegaly. No carotid bruit. CHEST WALL: Bilateral symmetrical expansion. No tenderness. No deformity. LUNGS: Bilateral basilar rales. Decreased air entry. CARDIOVASCULAR SYSTEM: PMI in the fifth intercostal space. S1 and S2 plus S3 positive. A 2/6 ejection systolic murmur at the apex. An AICD in place. ABDOMEN: Soft, nontender. Bowel sounds are positive. RECTAL: No masses. No bleeding. EXTREMITIES: +4 nonpitting edema. No clubbing or cyanosis. CENTRAL NERVOUS SYSTEM: Awake, alert, and oriented x3. Cranial nerves II through XII are normal. Power 5/5 x4. Plantars are downgoing. ASSESSMENT: 1. Chest pain, rule out myocardial infarction. 2. Congestive heart failure exacerbation. 3. Acute on chronic systolic heart failure. 4. Type 2 diabetes. 5. Morbid obesity. 6. Sleep apnea. PLAN: Admit. Details orders are written. Seen and examined. Ousmane Amor MD
[2018-03-31] MEDS ORDERED: Levothyroxine 100 MCG TAB PO SCH (06:30)
== END 2018-03-30 17:45 | disposition left against medical advice (07) ==
LOC: C.ER 20:16 → C.9E 22:30
PROVIDERS: ADMIT Internal Medicine; ATTEND Internal Medicine
DX: R07.2 Precordial pain (principal); I11.0 Hypertensive heart disease with heart failure; I50.23 Acute on chronic systolic (congestive) heart failure; I48.91 Unspecified atrial fibrillation; Z95.810 Presence of automatic (implantable) cardiac defibrillator; E11.9 Type 2 diabetes mellitus without complications; E66.01 Morbid (severe) obesity due to excess calories; Z68.42 Body mass index [BMI] 45.0-49.9, adult; G47.33 Obstructive sleep apnea (adult) (pediatric); I25.10 Atherosclerotic heart disease of native coronary artery without angina pectoris; Z95.1 Presence of aortocoronary bypass graft; Z95.5 Presence of coronary angioplasty implant and graft; M32.9 Systemic lupus erythematosus, unspecified; E03.9 Hypothyroidism, unspecified; J43.9 Emphysema, unspecified; D50.9 Iron deficiency anemia, unspecified; E78.00 Pure hypercholesterolemia, unspecified; F17.210 Nicotine dependence, cigarettes, uncomplicated; Z91.19 Patient's noncompliance with other medical treatment and regimen; Z86.73 Personal history of transient ischemic attack (TIA), and cerebral infarction without residual deficits; Z86.718 Personal history of other venous thrombosis and embolism; Z87.01 Personal history of pneumonia (recurrent)
CPT/HCPCS: 71045; 80053; 81001; 82948; 83690; 83880; 84484; 85025; 85610; 85730; 93005; 96374; G0378; J1940; J2916

== ENCOUNTER 2018-04-17 13:00 | Observation (INO) | payer MEDICARE, OTHER ==
[2018-04-17 13:00] VITALS: BMI 48.3
--- NOTE | 2018-04-17 14:24 | C.PDOC ---
History Of Present Illness 52 year old male presents to the ED for evaluation of recurrent bilateral leg swelling, lupus exacerbation since last night, and chest pain that started this morning. The patient states I think I need some IV lasix and notes the b ilateral leg swelling is similar to prior symptoms. He states experiencing generalized myalgia. Admits he is compliant with his medications, takes lasix 60 BID. Denies fever, chills, numbness, tingling, and any other associated symptoms. history of HTN, HCH, COPD, CHF, AFIB, CAD, CABG, coronary stent and pacemaker. PER RECENT ADMISSION NOTE, RECENT "NORMAL" OUTPT STRESS TEST Time Seen by Provider: 04/17/18 14:07 Chief Complaint (Nursing): Chest Pain History Per: Patient History/Exam Limitations: no limitations Onset/Duration Of Symptoms: Days Current Symptoms Are (Timing): Still Present Recent travel outside of the [place]: No Past Medical History Reviewed: Historical Data, Nursing Documentation, Vital Signs Vital Signs: Last Vital Signs Temp 98.3 F 04/17/18 13:16 Pulse 80 04/17/18 13:16 Resp 20 04/17/18 13:16 BP 96/63 L 04/17/18 13:16 Pulse Ox 98 04/17/18 13:16 - Medical History PMH: Anemia, Anxiety, Atrial Fibrillation, Back Problems, CAD, Cardia Arrhythmia (AFIB), CHF, COPD, Diabetes, Deep Vein Thrombosis, Emphysema, Graves' Disease, HTN, Hypercholesterolemia, Hypothyroidism, Peripheral Edema, Pneumonia, Sleep Apnea, TIA Denies: Chronic Kidney Disease Surgical History: CABG (2009 x4), Coronary Stent (4), Pacemaker - [facility] Procedures ASSISTANCE WITH RESPIRATORY VENTILATION, 24-96 HRS, CPAP (10/15/15) INJECT/INFUSE NEC (10/09/12) Family History: States: Unknown Family Hx - Social History Hx Tobacco Use: Yes Hx Alcohol Use: No Hx Substance Use: No - Immunization History Hx Tetanus Toxoid Vaccination: Yes Hx Influenza Vaccination: No Hx Pneumococcal Vaccination: No Review Of Systems Except As Marked, All Systems Reviewed And Found Negative. Constitutional: Positive for: Other ((+) lupus exacerbation.). Negative for: Fever, Chills Cardiovascular: Positive for: Chest Pain Musculoskeletal: Positive for: Leg Pain (bilateral leg swelling. ) Neurological: Negative for: Weakness, Numbness, Incoordination Physical Exam - Physical Exam Appears: Non-toxic, Toxic Skin: Normal Color, Warm, Dry Head: Atraumatic, Normacephalic Eye(s): bilateral: Normal Inspection, PERRL, EOMI Oral Mucosa: Moist Neck: Normal ROM, Supple Chest: Symmetrical, No Deformity Cardiovascular: Rhythm Regular, No Murmur, Other (NARD) Respiratory: Normal Breath Sounds, Rales ((+) mild bibasilar rales.), No Rhonchi, No Wheezing Gastrointestinal/Abdominal: Normal Exam, Soft, No Tenderness Extremity: No Tenderness, No Deformity, Other ((+) 2+ pitting edema bilaterally.) Neurological/Psych: Oriented x3, Normal Speech, Normal Cognition ED Course And Treatment - Laboratory Results Result Diagrams: 04/17/18 15:16 04/18/18 08:36 ECG: Interpreted By Me, Viewed By Me Interpretation Of ECG: AV paced at 77. Rate From EC O2 Sat by Pulse Oximetry: 98 (RA) Pulse Ox Interpretation: Normal - Radiology CXR: Interpreted by Me, Viewed By Me CXR Interpretation: Yes: Other (unchanged from 03.29.18) Progress - Data Reviewed Data Reviewed: Lab, Diagnostic imaging, EKG, Old records Medical Decision Making Medical Decision Making: Initial plan: -EKG -Blood sent. -CXR -Lasix Progress/Update: CXR: unchanged from 03.29.[address] Amor who agreed to admit the patient. Disposition Counseled Patient/Family Regarding: Studies Performed, Diagnosis - Disposition Disposition: HOSPITALIZED Disposition Time: 15:00 Condition: STABLE - Clinical Impression Clinical Impression: Morbid obesity with BMI of 45.0-49.9, adult, Chronic pain syndrome, CHF exacerbation - Scribe Statement The provider has reviewed the documentation as recorded by the Scribe (Michelle Abraham) Provider Attestation: All medical record entries made by the Scribe were at my direction and personally dictated by me. I have reviewed the chart and agree that the record accurately reflects my personal performance of the history, physical exam, medical decision making, and the department course for this patient. I have also personally directed, reviewed, and agree with the discharge instructions and disposition.
[2018-04-17 15:21] LABS: BASO # 0.1 K/uL (0.0-0.2); BASO % 1.9 % (0.0-2.0); EOS # 0.2 K/uL (0.0-0.7); HEMOGLOBIN 9.3 g/dL (12.0-18.0); LYMPH # 1.7 K/uL (1.0-4.3); LYMPH % 23.6 % (20.0-40.0); MEAN CELL VOLUME 79.2 fL (80.0-94.0); MEAN CORPUSCULAR HEMOGLOBIN 24.4 pg (27.0-31.0); MEAN CORPUSCULAR HGB CONC 30.9 g/dL (33.0-37.0); MEAN PLATELET VOLUME 8.5 fL (7.2-11.7); MONO # 0.4 K/uL (0.0-0.8); NEUT # 4.8 K/uL (1.8-7.0); NEUT % 65.5 % (50.0-75.0); NRBC % 0.1 % (0.0-2.0); RBC 3.82 Mil/uL (4.40-5.90); RED CELL DISTRIBUTION WIDTH 16.6 % (11.5-14.5); WHITE BLOOD COUNT 7.4 K/uL (4.8-10.8)
[2018-04-17 15:39] LABS: ALB/GLOB RATIO 0.9 (1.0-2.1); ALBUMIN 3.8 g/dL (3.5-5.0); ALT/SGPT < 6 U/L (21-72); AST/SGOT 16 U/L (17-59); BLOOD UREA NITROGEN 74 mg/dL (9-20); GFR NON-AFRICAN AMERICAN 43
[2018-04-17 15:48] LABS: B-TYPE NATRIURETIC PEPTIDE 728 pg/mL (0-900)
--- NOTE | 2018-04-17 17:28 | RAD ---
Date of service: 04/17/2018 PROCEDURE: CHEST RADIOGRAPH, 1 VIEW HISTORY: SOB COMPARISON: Comparison is made with 03/29/2018 FINDINGS: LUNGS: No evidence of new infiltrate or consolidation in the lungs. Mild pulmonary vascular congestion is noted. PLEURA: No pneumothorax or pleural fluid seen. CARDIOVASCULAR: Mild atherosclerotic calcification noted. Cardiac silhouette is mildly enlarged. Left-sided pacemaker is again seen in place. OSSEOUS STRUCTURES: No significant abnormalities. VISUALIZED UPPER ABDOMEN: Normal. OTHER FINDINGS: None. IMPRESSION: Mild pulmonary vascular congestion and cardiomegaly again noted.
[2018-04-17] MEDS: oxyCODONE 30 mg Immediate Release Tab PO PRN ×2 (19:22→23:28)
[2018-04-17] MEDS: Digoxin 125 mcg (0.125 mg) Tab PO SCH (19:22)
[2018-04-17 19:51] LABS: CK-MB 0.92 ng/mL (0.0-3.38)
[2018-04-17] MEDS: (Novolin R) Insulin Human Regular 100 units/ml vial SC SCH (22:13)
[2018-04-18 00:42] LABS: BARBITURATES, UR NEGATIVE (NEGATIVE); BENZODIAZEPINES, UR NEGATIVE (NEGATIVE); PHENCYCLIDINE, UR NEGATIVE (NEGATIVE)
[2018-04-18 00:44] LABS: OPIATES, UR POSITIVE (NEGATIVE)
[2018-04-18] MEDS: oxyCODONE 30 mg Immediate Release Tab PO PRN ×5 (03:38→22:41)
[2018-04-18] MEDS: Levothyroxine 100 MCG TAB PO SCH (05:33)
[2018-04-18] MEDS: (Novolin R) Insulin Human Regular 100 units/ml vial SC SCH ×4 (08:39→22:39)
[2018-04-18 09:06] LABS: BLOOD UREA NITROGEN 68 mg/dL (9-20); CALCIUM 9.1 mg/dl (8.6-10.4); GFR NON-AFRICAN AMERICAN 54
[2018-04-18 16:30] VITALS: RESP 20
[2018-04-18] MEDS: Digoxin 125 mcg (0.125 mg) Tab PO SCH (17:55)
[2018-04-18 17:59] VITALS: PULSE 72
--- NOTE | 2018-04-19 00:46 | CP.PCM.HP ---
Present on Admission - Present on Admission Any Indicators Present on Admission: No Past Patient History - Infectious Disease Hx of Infectious Diseases: None - Past Medical History & Family History Past Medical History?: Yes - Past Social History Smoking Status: Current Some Days Smoker - CARDIAC Hx Atrial Fibrillation: Yes Hx Cardia Arrhythmia: Yes (AFIB) Hx Congestive Heart Failure: Yes Hx Hypercholesterolemia: Yes Hx Hypertension: Yes Hx Pacemaker: Yes Hx Peripheral Edema: Yes - PULMONARY Hx Chronic Obstructive Pulmonary Disease (COPD): Yes Hx Emphysema: Yes Hx Pneumonia: Yes Hx Sleep Apnea: Yes - NEUROLOGICAL Hx Transient Ischemic Attacks (TIA): Yes - HEENT Hx HEENT Problems: No - RENAL Hx Chronic Kidney Disease: No - ENDOCRINE/METABOLIC Hx Hypothyroidism: Yes - HEMATOLOGICAL/ONCOLOGICAL Hx Anemia: Yes - INTEGUMENTARY Hx Dermatological Problems: No - MUSCULOSKELETAL/RHEUMATOLOGICAL Hx Falls: No - GASTROINTESTINAL Hx Gastrointestinal Disorders: No - GENITOURINARY/GYNECOLOGICAL Hx Genitourinary Disorders: No - PSYCHIATRIC Hx Anxiety: Yes Hx Substance Use: No - SURGICAL HISTORY Hx Coronary Artery Bypass Graft: Yes (2008 x4) Hx Coronary Stent: Yes (4) - ANESTHESIA Hx Anesthesia: Yes Hx Anesthesia Reactions: No Hx Malignant Hyperthermia: No Meds Allergies/Adverse Reactions: Allergies Allergy/AdvReac Type Severity Reaction Status Date / Time No Known Drug Allergies Allergy n/a Verified 03/29/18 20:29 Results - Vital Signs Recent Vital Signs: Last Vital Signs Temp 98.1 F 04/18/18 15:00 Pulse 65 04/18/18 16:30 Resp 20 04/18/18 15:00 BP 115/76 04/18/18 17:57 Pulse Ox 98 04/18/18 19:24 - Labs Result Diagrams: 04/17/18 15:16 04/18/18 08:36 Labs: Laboratory Results - last 24 hr 04/17/18 04/18/18 04/18/18 21:31 06:24 08:36 Sodium 135 Potassium 4.2 Chloride 98 Carbon Dioxide 28 Anion Gap 13 BUN 68 H Creatinine 1.4 Est GFR ( Amer) > 60 Est GFR (Non-Af Amer) 54 POC Glucose (mg/dL) 240 H 184 H Random Glucose 180 H D Calcium 9.1 04/18/18 04/18/18 04/18/18 12:18 16:11 21:28 Sodium Potassium Chloride Carbon Dioxide Anion Gap BUN Creatinine Est GFR ( Amer) Est GFR (Non-Af Amer) POC Glucose (mg/dL) 269 H 411 H* 315 H Random Glucose Calcium
--- NOTE | 2018-04-19 01:57 | CON ---
DATE: 04/18/2018 REASON FOR CONSULTATION: Shortness of breath as well as worsening of the leg swelling and mild chest discomfort. HISTORY OF PRESENT ILLNESS: The patient is a 52-year-old, morbidly obese male who has a history of coronary artery disease, status post coronary artery bypass surgery; history of ICD placement; history of chronic obstructive lung disease; history of sleep apnea, on BiPAP; history of multiple admissions for shortness of breath, chest discomfort as well as worsening of leg swelling. The patient stated that he underwent eight months ago incision and drainage of his right leg for cellulitis and since then he was using bandage socks. The patient claims that he is compliant with his medications, but they are not effective in reducing his leg swelling, but he admits to taking unnecessary large amount of fluids and having ice. The patient denies any recent discharge of the defibrillator. The patient underwent cardiac catheterization about two to three years ago at [facility], and no coronary intervention was recommended at that time, and I did review the cardiac catheterization CD at that time. SOCIAL HISTORY: Former smoker, nondrinker. MEDICATIONS: Coreg 25 mg twice a day, Crestor 40 mg once a day, digoxin 0.125 mg once a day, Eliquis 5 mg twice a day, Glucophage 500 mg twice a day, Januvia 50 mg once a day, Lasix 60 mg intravenously twice a day, Plavix 75 mg once a day, Plaquenil 200 mg twice a day, Zestril 5 mg once a day, Synthroid 100 mcg once a day. REVIEW OF SYSTEMS: No fever or chills. No nausea or vomiting. No dizziness or syncope. No recent discharge of the defibrillator. PHYSICAL EXAMINATION: GENERAL: The patient is a middle-aged male who does not appear to be in acute distress. VITAL SIGNS: Blood pressure 134/75, heart rate 75, temperature 98.8, respirations 18. HEENT: Pale conjunctivae. CHEST: Diminished breath sounds over the bases. HEART: S1 and S2, regular and distant. ABDOMEN: Soft. EXTREMITIES: Significant bilateral leg edema. Stocking is applied to the right lower extremity . LABORATORY DATA: Hemoglobin and hematocrit are 9.3 and 30.3. White count and platelet count are within normal limit. Urine drug screen is positive for opiates. SMA-7 today is within normal limit except for glucose 180 and BUN of 68. One set of troponin is negative. EKG revealed atrial-sensed biventricular paced rhythm at a rate of 77. Chest x-ray revealed significant cardiomegaly, mild CHF, ICD with biventricular pacemaker, sternotomy scar for previous CABG. The most recent echo was from 08/2015, which revealed mild concentric LVH with normal systolic function, mildly dilated left atrium and [id number] pulmonary hypertension. ASSESSMENT: 1. Exacerbation of diastolic heart failure. 2. Chronic obstructive lung disease. 3. Mild anemia. 4. Prerenal azotemia. 5. Morbid obesity and sleep apnea. 6. Lupus erythematosus. RECOMMENDATIONS: Continue Coreg 25 mg twice a day, Crestor 40 mg once a day, digoxin 0.125 mg daily, Eliquis 5 mg twice a day, Lasix 60 mg intravenously twice a day, Plavix 75 mg once a day, Zestril 5 mg once a day, Synthroid 100 mcg once a day. Obtain one more set of troponin the patient for an echocardiogram approach is recommended. Burke Bernstein MD
[2018-04-19] MEDS: oxyCODONE 30 mg Immediate Release Tab PO PRN ×3 (02:35→10:31)
[2018-04-19 04:29] VITALS: PULSE 71
--- NOTE | 2018-04-19 05:35 | HP ---
CHIEF COMPLAINT: Left precordial chest pain since the morning of the day of admission. HISTORY OF PRESENT ILLNESS: This is a 52-year-old male, well known to me with history of morbid obesity, sleep apnea, hypertension, hyperlipidemia. He is status post coronary artery disease with CABG. The patient had a bypass in the lower extremity, and the patient after a subsequent angiogram and angioplasty, he has been followed up by his pattern puncher in [place]. Hyperlipidemia, hypothyroidism, systemic lupus erythematosus, osteoarthritis, , chronic lower back pain syndrome. He is noncompliant with his diet. He is compliant with his medication and followup. The patient came in because of epicardial chest pain which is substernal, dull, nonradiating, not associated with diaphoresis or dizziness. He denies any smoking. His sugars have been poorly controlled. He denies any nausea or vomiting. He has dyspepsia. He has bloating. He denies any pleurisy. He has cough. He denies any sputum production. He denies any fever, chills, or rigors. He denies any polyuria, polydipsia, or polyphagia. He denies any history of hematuria or pyuria. He has nasal congestion. He denies abdominal pain. He has dyspnea at rest and dyspnea on exertion. PAST MEDICAL HISTORY: CAD, status post CABG, hypothyroidism, hypertension, hyperlipemia, osteoarthritis, and lumbar disk disease. SOCIAL HISTORY: He is a nonsmoker, non-EtOH user. CURRENT MEDICATIONS: At home are, Levoxyl, metformin, Januvia, lisinopril, Plaquenil, Plavix, digoxin, Coreg, Eliquis, oxycodone, Mucinex, Lasix, and Lipitor. PHYSICAL EXAMINATION: GENERAL: A middle-aged male in no acute distress. VITAL SIGNS: Blood pressure is 112/75, pulse 71, respiratory rate 20, temperature 98.1. SKIN: Chronic changes in the lower extremity. HEENT: Atraumatic,normocephalic. Negative pallor. Negative jaundice. Extraocular movements are intact. NECK: Supple. No JVD. No lymph node. No thyromegaly. CHEST: Chest wall, bilateral symmetrical expansion with gynecomastia. LUNGS: Bilateral basal crepitations. CARDIOVASCULAR SYSTEM: S1 and S2 regular. No heave. No thrill. ABDOMEN: Soft, nontender. Bowel sounds are positive. EXTREMITIES: A +4 nonpitting edema. CENTRAL NERVOUS SYSTEM: Awake, alert, and oriented x3. ASSESSMENT: 1. Chest pain. Rule out myocardial infarction. 2. Exacerbation of congestive heart failure. 3. Morbid obesity. 4. Sleep apnea. 5. Hypertension. PLAN: Admit. Detailed orders are written. Seen and examined. Ousmane Amor MD
[2018-04-19] MEDS: Levothyroxine 100 MCG TAB PO SCH (06:32)
[2018-04-19] MEDS: (Novolin R) Insulin Human Regular 100 units/ml vial SC SCH ×2 (08:00→11:55)
[2018-04-19 08:54] LABS: CK-MB 0.42 ng/mL (0.0-3.38); TROPONIN I 0.015 ng/mL (0.00-0.120)
[2018-04-19 10:36] VITALS: BP 119/81
[2018-04-19 11:00] VITALS: TEMP 97.8; O2SAT 99
--- NOTE | 2018-04-19 17:31 | PCM.HF ---
Heart Failure Core Measure - Heart Failure Ejection Fraction: 40 % or Greater (EF 40-45%) JEANNE Inhibitor Prescribed: Yes Beta-Rian Prescribed: None Contraindication/Reason for not providing: COPD Angiotensin II Receptor Rian Prescribed: No Contraindication/Reason for not providing: Renal insufficiency AnticoagulationTherapy for Atrial Fibrillation/Atrialflutter: Yes Aldosterone Antagonist Prescribed: No Contraindication/Reason for not providing: EF >40% Hydralazine Nitrate Prescribed: No Contraindication/Reason for not providing: EF >40% Implantable Cardioverter Defibrillator Therapy: Yes Cardiac Resynchronization Therapy Prescribed: No Contraindication/Reason for not providing: not indicated - Follow up Will be discharged to: Home Follow Up Date (must be within 7 days from discharge): 04/26/18 Follow Up Time: 10:00
--- NOTE | 2018-04-19 17:35 | CP.PCM.PN ---
Subjective - Date & Time of Evaluation Date of Evaluation: 04/19/18 Time of Evaluation: 17:35 - Subjective Subjective: alert and orientedx3, leg edema and breathing distress reduced. Objective - Vital Signs/Intake and Output Vital Signs (last 24 hours): Temp Pulse Resp BP Pulse Ox 97.8 F 71 20 119/81 99 04/19/18 07:00 04/19/18 07:00 04/19/18 07:00 04/19/18 10:36 04/19/18 07:00 Intake and Output: 04/19/18 04/19/18 06:59 18:59 Intake Total 250 Output Total 600 Balance -350 - Labs Labs: 04/17/18 15:16 04/18/18 08:36 Assessment and Plan - Assessment and Plan (Free Text) Assessment: Patient admitted with CHF, edema, sob, seen and examined. Alert and orientedx3, improved leg edema and breathing. Unna boots on the right leg changed by the wound care nurse. Discussed with DR Amor, plan to discharge home on home meds. Advised to follow up with PMD in 1 week.
--- NOTE | 2018-04-19 18:04 | PN ---
DATE: 04/19/2018 SUBJECTIVE: The patient's shortness of breath has improved and no chest pain. His leg swelling is slightly improved and the patient had dressing of his right lower extremity wound today. PHYSICAL EXAMINATION: VITAL SIGNS: Blood pressure 119/81, heart rate 71, temperature 97.8, respirations 20. HEENT: Normocephalic. CHEST: Distant breath sounds. HEART: S1, S2. Regular and distant. ABDOMEN: Soft. EXTREMITIES: Dressing was applied to both lower extremities. LABORATORY DATA: Today's blood sugar is 187. Today's troponin 0.015. ASSESSMENT: 1. Chest pain. Myocardial infarction is ruled out. 2. Chronic obstructive lung disease. 3. Diastolic heart failure. 4. Improved prerenal azotemia. 5. Uncontrolled diabetes mellitus. 6. Morbid obesity. 7. Sleep apnea. RECOMMENDATIONS: Continue Coreg 25 mg twice a day, Crestor 40 mg once a day, digoxin 0.125 mg daily, Eliquis 5 mg twice a day, Lasix 60 mg intravenously twice a day, Plavix 75 mg once a day, Synthroid 100 mcg once a day, Zestril 5 mg once a day. I will follow echocardiac study performed today. Burke Bernstein MD
--- NOTE | 2018-04-19 20:26 | CP.PCM.DIS ---
Provider - Provider Date of Admission: 04/17/18 14:41 Attending physician: Ousmane Amor MD Consults: 04/17/18 18:47 Cardiology Consult Routine Comment: Consulting Provider: Burke Bernstein Consulting Physician: Burke Bernstein Reason for Consult: CP 04/17/18 19:26 Pulmonology Consult Routine Comment: Consulting Provider: Alvin Coleman Consulting Physician: Alvin Coleman Reason for Consult: Shortness of breath 04/19/18 10:04 Nursing Referral for Wound Care Routine Comment: Physician Instructions: Reason For Exam: right leg unna boots to be changed Time Spent in preparation of Discharge (in minutes): 30 Hospital Course - Lab Results Lab Results: Most Recent Lab Values WBC 7.4 K/uL (4.8-10.8) 04/17/18 15:16 RBC 3.82 Mil/uL (4.40-5.90) L 04/17/18 15:16 Hgb 9.3 g/dL (12.0-18.0) L 04/17/18 15:16 Hct 30.3 % (35.0-51.0) L 04/17/18 15:16 MCV 79.2 fL (80.0-94.0) L 04/17/18 15:16 MCH 24.4 pg (27.0-31.0) L 04/17/18 15:16 MCHC 30.9 g/dL (33.0-37.0) L 04/17/18 15:16 RDW 16.6 % (11.5-14.5) H 04/17/18 15:16 Plt Count 225 K/uL (130-400) 04/17/18 15:16 MPV 8.5 fL (7.2-11.7) 04/17/18 15:16 Neut % (Auto) 65.5 % (50.0-75.0) 04/17/18 15:16 Lymph % (Auto) 23.6 % (20.0-40.0) 04/17/18 15:16 Wythe % (Auto) 6.0 % (0.0-10.0) 04/17/18 15:16 Eos % (Auto) 3.0 % (0.0-4.0) 04/17/18 15:16 Baso % (Auto) 1.9 % (0.0-2.0) 04/17/18 15:16 Neut # (Auto) 4.8 K/uL (1.8-7.0) 04/17/18 15:16 Lymph # (Auto) 1.7 K/uL (1.0-4.3) 04/17/18 15:16 Wythe # (Auto) 0.4 K/uL (0.0-0.8) 04/17/18 15:16 Eos # (Auto) 0.2 K/uL (0.0-0.7) 04/17/18 15:16 Baso # (Auto) 0.1 K/uL (0.0-0.2) 04/17/18 15:16 Sodium 135 mmol/L (132-148) 04/18/18 08:36 Potassium 4.2 mmol/L (3.6-5.2) 04/18/18 08:36 Chloride 98 mmol/L (98-107) 04/18/18 08:36 Carbon Dioxide 28 mmol/L (22-30) 04/18/18 08:36 Anion Gap 13 (10-20) 04/18/18 08:36 BUN 68 mg/dL (9-20) H 04/18/18 08:36 Creatinine 1.4 mg/dL (0.8-1.5) 04/18/18 08:36 Est GFR ( Amer) > 60 04/18/18 08:36 Est GFR (Non-Af Amer) 54 04/18/18 08:36 POC Glucose (mg/dL) 187 mg/dL (65-110) H 04/19/18 06:19 Random Glucose 180 mg/dL (75-110) H D 04/18/18 08:36 Calcium 9.1 mg/dl (8.6-10.4) 04/18/18 08:36 Total Bilirubin 0.3 mg/dL (0.2-1.3) 04/17/18 15:16 AST 16 U/L (17-59) L D 04/17/18 15:16 ALT < 6 U/L (21-72) L D 04/17/18 15:16 Alkaline Phosphatase 137 U/L (38-126) H 04/17/18 15:16 Total Creatine Kinase 62 U/L (55-170) 04/19/18 08:03 CK-MB (Mass) 0.42 ng/mL (0.0-3.38) 04/19/18 08:03 Troponin I 0.0150 ng/mL (0.00-0.120) 04/19/18 08:03 NT-Pro-B Natriuret Pep 728 pg/mL (0-900) 04/17/18 15:16 Total Protein 8.1 g/dL (6.3-8.3) 04/17/18 15:16 Albumin 3.8 g/dL (3.5-5.0) 04/17/18 15:16 Globulin 4.3 gm/dL (2.2-3.9) H 04/17/18 15:16 Albumin/Globulin Ratio 0.9 (1.0-2.1) L 04/17/18 15:16 Urine Opiates Screen Positive (NEGATIVE) H 04/18/18 00:18 Urine Methadone Screen Negative (NEGATIVE) 04/18/18 00:18 Ur Barbiturates Screen Negative (NEGATIVE) 04/18/18 00:18 Ur Phencyclidine Scrn Negative (NEGATIVE) 04/18/18 00:18 Ur Amphetamines Screen Negative (NEGATIVE) 04/18/18 00:18 U Benzodiazepines Scrn Negative (NEGATIVE) 04/18/18 00:18 U Oth Cocaine Metabols Negative (NEGATIVE) 04/18/18 00:18 U Cannabinoids Screen Negative (NEGATIVE) 04/18/18 00:18 Discharge Plan - Discharge Medications Prescriptions: Promethazine [Phenergan Syrup] 12.5 mg PO Q6H 7 Days dose - Follow Up Plan Condition: STABLE Disposition: HOME/ ROUTINE Instructions: Heart Healthy Diet, Heart Failure (DC), Pulmonary Edema (DC), Obesity (DC) Additional Instructions: FOLLOW UP WITH THE WOUND CLINIC INSTRUCTED BY YOUR DOCTOR. PLEASE CALL FOR APPOINTMENT TO SEE IN HIS OFFICE , A WEEK AFTER LEAVING THE HOSPITAL. CONTINUE TAKING YOUR MEDICATIONS INSTRUCTED BY YOUR DOCTOR,ANY QUESTIONS ,PLEASE CALL YOUR DOCTOR Referrals: Ousmane Amor MD [Staff Provider] -
--- NOTE | 2018-04-19 22:58 | CARD ---
APPROVED REPORT Date of service: 04/19/2018 EXAM: Two-dimensional and M-mode echocardiogram with Doppler and color Doppler. INDICATION Atrial Fibrillation Congestive Heart Failure Surgery/Intervention Pacemaker: RISK FACTORS Hypertension Obesity Hyperlipidemia 2D DIMENSIONS IVSd1.0 (0.7-1.1cm)LVDd5.8 (3.9-5.9cm) PWd1.1 (0.7-1.1cm)LA [id number] (18-58mL) LVDs4.5 (2.5-4.0cm)FS (%) 22.8 % LVEF (%)45.1 (>50%)LVEF (Fox's)45 % M-Mode DIMENSIONS Left Atrium (MM)5.60 (2.5-4.0cm)IVSd1.07 (0.7-1.1cm) Aortic Root3.53 (2.2-3.7cm)LVDd6.67 (4.0-5.6cm) Aortic Cusp Exc.2.37 (1.5-2.0cm)PWd0.92 (0.7-1.1cm) FS (%) 31 %LVDs4.62 (2.0-3.8cm) LVEF (%)57 (>50%) Mitral Valve MV E Kkqpuixb51.5cm/sMV A Istyjfhj81.4cm/sE/A ratio2.0 TDI Lateral E' Peak V12.51cm/sMedial E' Peak V8.29cm/sE/Lateral E'7.7 E/Medial E'11.6 Tricuspid Valve TR Peak Rmojhzgb424oi/sTR Peak Gr.73fgMkEMIS98wrDx LEFT VENTRICLE The Left Ventricle is moderately dilated. There is normal left ventricular wall thickness. Left ventricle systolic function is mildly impaired. The Ejection Fraction is 40-45%. There is mild global hypokinesis of the left ventricle. Tissue Doppler imaging reveals abnormal left ventricular diastolic dysfunction. RIGHT VENTRICLE The right ventricle is normal size. There is normal right ventricular wall thickness. Systolic function is mildly reduced. There is a pacemaker lead in the right ventricle. ATRIA The left atrium is mildly dilated. The right atrium size is normal. The atrial septum is aneurysmal. AORTIC VALVE The aortic valve is normal in structure. No aortic regurgitation is present. There is no aortic valvular stenosis. MITRAL VALVE Mitral annular calcification is mild. There is no evidence of mitral valve prolapse. There is no mitral valve stenosis. Mitral regurgitation is trace. TRICUSPID VALVE There is tricuspid annular calcification. There is mild tricuspid regurgitation. Right ventricular systolic pressure is estimated at 40-50 mmHg. There is mild-moderate pulmonary hypertension. PULMONIC VALVE The pulmonic valve is not well visualized. There is mild pulmonic valvular regurgitation. GREAT VESSELS The aortic root is normal in size. PERICARDIAL EFFUSION There is no significant pericardial effusion. <Conclusion> Left ventricle systolic function is mildly impaired. The Ejection Fraction is 40-45%. Diastolic dysfunction. No aortic regurgitation is present. Mitral regurgitation is trace. There is mild tricuspid regurgitation. There is mild-moderate pulmonary hypertension. There is mild pulmonic valvular regurgitation. There is a pacemaker lead in the right ventricle.
--- NOTE | 2018-04-20 05:32 | DS ---
DISCHARGE DIAGNOSES: 1. Non-coronary chest pain. 2. Exacerbation of congestive heart failure. 3. Sleep apnea and with morbid obesity. 4. Hypertension. HISTORY OF PRESENT ILLNESS: This is a 52-year-old black male with history of morbid obesity, diabetes, hypertension, systemic lupus erythematosus, sleep apnea who came in because of shortness of breath, chest pain. ND was ruled out by negative cardiac enzymes. He was placed on diuretics he did well and he is being discharged with outpatient followup. CONDITION UPON DISCHARGE: Stable. PHYSICAL EXAMINATION: VITAL SIGNS: Blood pressure 112/67, pulse 71, respiratory rate 20, temperature 97.8. LUNGS: Decreased air entry. Positive crackle. CARDIOVASCULAR SYSTEM: S1 and S2. Regular. ABDOMEN: Soft. PLAN: Discharge. Ousmane Amor MD
== END 2018-04-19 14:39 | disposition home or self-care (01) ==
LOC: C.ER 13:00 → C.9E 14:41 → C.6T 14:58
PROVIDERS: ADMIT Internal Medicine; ATTEND Internal Medicine
DX: I11.0 Hypertensive heart disease with heart failure (principal); I50.33 Acute on chronic diastolic (congestive) heart failure; E11.65 Type 2 diabetes mellitus with hyperglycemia; E66.01 Morbid (severe) obesity due to excess calories; Z68.42 Body mass index [BMI] 45.0-49.9, adult; I48.91 Unspecified atrial fibrillation; I25.10 Atherosclerotic heart disease of native coronary artery without angina pectoris; J43.9 Emphysema, unspecified; E78.5 Hyperlipidemia, unspecified; G89.4 Chronic pain syndrome; M32.9 Systemic lupus erythematosus, unspecified; E03.9 Hypothyroidism, unspecified; E78.00 Pure hypercholesterolemia, unspecified; G47.30 Sleep apnea, unspecified; D64.9 Anemia, unspecified; Z86.73 Personal history of transient ischemic attack (TIA), and cerebral infarction without residual deficits; Z91.11 Patient's noncompliance with dietary regimen; Z95.810 Presence of automatic (implantable) cardiac defibrillator; Z95.1 Presence of aortocoronary bypass graft; Z95.5 Presence of coronary angioplasty implant and graft; Z87.891 Personal history of nicotine dependence
CPT/HCPCS: 36415; 71045; 80048; 80053; 82948; 83880; 84484; 85025; 93005; 93306; 94660; 96374; 99283; G0378; G0480; J1940

== ENCOUNTER 2018-05-26 14:01 | Observation (INO) | payer MEDICARE, OTHER ==
[2018-05-26 14:02] VITALS: BMI 48.3
--- NOTE | 2018-05-26 15:11 | C.PDOC ---
History Of Present Illness 53 year old male with PMHx of HTN, diabetes, CHF, CA, and status post CABG, presents to the ED complaining of chest pain. Reports he was riding in the car today with his brother when the pain started. Reports pain feels like chest ti ghtness and a pressure sensation associated with shortness of breath. States he took one Nitroglycerin and symptoms resolved. Notes he often gets chest pains on exertion and occasionally at rest. Also states leg swelling is worse than usual. Patient had a recent surgery at [facility] for chronic right leg ulcer and is currently wearing an MICAELA boot, last changed one week ago. Notes he took his da irena Aspirin 81mg this morning. Otherwise, patient denies any other complaints and feels comfortable in the ED. Time Seen by Provider: 05/26/18 14:26 Chief Complaint (Nursing): Shortness Of Breath History Per: Patient History/Exam Limitations: no limitations Onset/Duration Of Symptoms: Hrs Current Symptoms Are (Timing): Still Present Quality: Tightness, Pressure Exacerbating Factor(s): Exertion Associated Symptoms: Chest Pain, Ankle/Leg Swelling. denies: Fever, Chills, Dizziness, Light-headedness Past Medical History Reviewed: Historical Data, Nursing Documentation, Vital Signs Vital Signs: Last Vital Signs Temp 98.6 F 05/26/18 14:11 Pulse 87 05/26/18 14:11 Resp 18 05/26/18 14:27 BP 110/68 05/26/18 14:11 Pulse Ox 96 05/26/18 14:11 - Medical History PMH: Anemia, Anxiety, Atrial Fibrillation, Back Problems, CAD, Cardia Arrhythmia (AFIB), CHF, COPD, Diabetes, Deep Vein Thrombosis, Emphysema, Graves' Disease, HTN, Hypercholesterolemia, Hypothyroidism, Peripheral Edema, Pneumonia, Sleep Apnea, TIA Denies: Chronic Kidney Disease Surgical History: CABG (2008 x4), Coronary Stent (4), Pacemaker - [facility] Procedures ASSISTANCE WITH RESPIRATORY VENTILATION, 24-96 HRS, CPAP (10/15/15) INJECT/INFUSE NEC (10/09/12) Family History: States: No Known Family Hx - Social History Hx Tobacco Use: Yes Hx Alcohol Use: No Hx Substance Use: No - Immunization History Hx Tetanus Toxoid Vaccination: No Hx Influenza Vaccination: Yes Hx Pneumococcal Vaccination: Yes Review Of Systems Constitutional: Negative for: Fever, Chills Cardiovascular: Positive for: Chest Pain. Negative for: Palpitations, Light Headedness Respiratory: Positive for: Shortness of Breath Gastrointestinal: Negative for: Nausea, Vomiting, Abdominal Pain, Diarrhea Musculoskeletal: Positive for: Other (Leg swelling ) Neurological: Negative for: Headache, Dizziness Physical Exam - Physical Exam Appears: Non-toxic, No Acute Distress, Other (morbidly obese ) Skin: Warm, Dry, No Rash Head: Normacephalic Eye(s): bilateral: PERRL, EOMI Chest: Symmetrical Cardiovascular: Rhythm Regular, Other (Distant heart sounds ) Respiratory: No Rales, No Rhonchi, No Wheezing, Other (Distant lung sounds ) Gastrointestinal/Abdominal: Soft, No Tenderness, No Guarding, No Rebound Extremity: Pedal Edema (3+ tense pitting edema to left leg ), Other (Right leg dressed in the MICAELA boot starting at the knee. ) Neurological/Psych: Oriented x3, Normal Speech Gait: Steady ED Course And Treatment - Laboratory Results Result Diagrams: 05/26/18 15:54 05/26/18 15:54 Lab Interpretation: No Acute Changes (Glucose 334, Normal troponin and BNP, BUN 46) ECG: Interpreted By Me ECG Rhythm: AV Paced ECG Interpretation: No Acute Changes O2 Sat by Pulse Oximetry: 96 (RA) Pulse Ox Interpretation: Normal - Radiology CXR: Viewed By Me, Read By Radiologist CXR Interpretation: Yes: Other (Vascular congestion) Reevaluation Time: 17:44 Reassessment Condition: Improved - Physician Consult Information Time Consulting Physician Contacted: 17:44 Physician Contacted: Ousmane Amor Outcome Of Conversation: Patient with significant cardiac history and risk factors c/o chest pain. Will keep for cardiac observation. Medical Decision Making Medical Decision Making: Plan - EKG - Aspirin 243mg PO - UA Disposition - Disposition Disposition: HOSPITALIZED Disposition Time: 17:45 Condition: FAIR - POA Present On Arrival: Poor Glycemic Control - Clinical Impression Clinical Impression: Chest pain - Scribe Statement The provider has reviewed the documentation as recorded by the Nainibchris Gonzales All medical record entries made by the Nainibe were at my direction and personally dictated by me. I have reviewed the chart and agree that the record accurately reflects my personal performance of the history, physical exam, medical decision making, and the department course for this patient. I have also personally directed, reviewed, and agree with the discharge instructions and disposition.
--- NOTE | 2018-05-26 15:13 | RAD ---
Date of service: 05/26/2018 PROCEDURE: CHEST RADIOGRAPH, 1 VIEW HISTORY: chest pain COMPARISON: Comparison is made with 04/17/19 FINDINGS: LUNGS: [id number]-fl-voqrmcap pulmonary vascular congestion is again noted. PLEURA: No pneumothorax or pleural fluid seen. CARDIOVASCULAR: No aortic atherosclerotic calcification present. Normal. OSSEOUS STRUCTURES: No significant abnormalities. VISUALIZED UPPER ABDOMEN: Normal. OTHER FINDINGS: Sided pacemaker is again noted. IMPRESSION: Vascular congestion.
[2018-05-26 16:00] LABS: BASO # 0.1 K/uL (0.0-0.2); BASO % 1.3 % (0.0-2.0); EOS # 0.1 K/uL (0.0-0.7); EOS % 2.2 % (0.0-4.0); HEMOGLOBIN 11.2 g/dL (12.0-18.0); LYMPH # 1.2 K/uL (1.0-4.3); LYMPH % 18.5 % (20.0-40.0); MEAN CELL VOLUME 79.1 fL (80.0-94.0); MEAN CORPUSCULAR HEMOGLOBIN 25.1 pg (27.0-31.0); MEAN CORPUSCULAR HGB CONC 31.7 g/dL (33.0-37.0); MEAN PLATELET VOLUME 8.8 fL (7.2-11.7); MONO # 0.5 K/uL (0.0-0.8); MONO % 6.8 % (0.0-10.0); NEUT # 4.7 K/uL (1.8-7.0); NEUT % 71.2 % (50.0-75.0); NRBC % 0.1 % (0.0-2.0); RBC 4.47 Mil/uL (4.40-5.90); RED CELL DISTRIBUTION WIDTH 16.9 % (11.5-14.5); WHITE BLOOD COUNT 6.7 K/uL (4.8-10.8)
[2018-05-26 16:21] LABS: ALBUMIN 3.7 g/dL (3.5-5.0); ALT/SGPT 12 U/L (21-72); AST/SGOT 21 U/L (17-59); BLOOD UREA NITROGEN 46 mg/dL (9-20); CALCIUM 9.1 mg/dl (8.6-10.4); GFR NON-AFRICAN AMERICAN 53
[2018-05-26 16:32] LABS: B-TYPE NATRIURETIC PEPTIDE 750 pg/mL (0-900)
[2018-05-26 17:34] LABS: SQUAMOUS EPITHIAL 5 /hpf (0-5); URINE BILIRUBIN NEGATIVE (NEGATIVE); URINE BLOOD NEGATIVE (NEGATIVE); URINE CLARITY Clear (Clear); URINE COLOR Yellow (YELLOW); URINE GLUCOSE (UA) 3+ mg/dL (Normal); URINE LEUKOCYTE ESTERASE NEG Leu/uL (Negative); URINE PROTEIN NEGATIVE (NEGATIVE); URINE UROBILINOGEN NORMAL mg/dL (0.2-1.0)
[2018-05-26 19:24] VITALS: RESP 20
[2018-05-26] MEDS: oxyCODONE 30 mg Immediate Release Tab PO PRN (20:42)
[2018-05-26] MEDS: Promethazine 12.5 mg/10 ml Syrup PO SCH ×2 (22:25→22:28)
[2018-05-26] MEDS: (Novolin R) Insulin Human Regular 100 units/ml vial SC SCH (22:26)
[2018-05-27 00:04] LABS: CK-MB 0.59 ng/mL (0.0-3.38)
[2018-05-27] MEDS: oxyCODONE 30 mg Immediate Release Tab PO PRN ×6 (01:56→23:49)
[2018-05-27] MEDS: Promethazine 12.5 mg/10 ml Syrup PO SCH ×4 (02:00→19:45)
[2018-05-27] MEDS: Levothyroxine 100 MCG TAB PO SCH (05:44)
[2018-05-27] MEDS: (Novolin R) Insulin Human Regular 100 units/ml vial SC SCH ×4 (07:42→21:37)
[2018-05-27 12:29] LABS: CK-MB 0.48 ng/mL (0.0-3.38)
[2018-05-27 17:12] VITALS: PULSE 70
[2018-05-27] MEDS ORDERED: Digoxin 125 mcg (0.125 mg) Tab PO SCH (18:00)
[2018-05-27] MEDS: Albuterol-Ipratrop 3 mg / 0.5 (3 ml) UD INH SCH (20:09)
--- NOTE | 2018-05-27 22:02 | CP.PCM.HP ---
Present on Admission - Present on Admission Any Indicators Present on Admission: Yes History of DVT/PE: Yes History of Uncontrolled Diabetes: Yes Past Patient History - Infectious Disease Hx of Infectious Diseases: None - Past Medical History & Family History Past Medical History?: Yes - Past Social History Smoking Status: Current Some Days Smoker - CARDIAC Hx Atrial Fibrillation: Yes Hx Cardia Arrhythmia: Yes (AFIB) Hx Congestive Heart Failure: Yes Hx Hypercholesterolemia: Yes Hx Hypertension: Yes Hx Pacemaker: Yes Hx Peripheral Edema: Yes - PULMONARY Hx Chronic Obstructive Pulmonary Disease (COPD): Yes Hx Emphysema: Yes Hx Pneumonia: Yes Hx Sleep Apnea: Yes - NEUROLOGICAL Hx Transient Ischemic Attacks (TIA): Yes - HEENT Hx HEENT Problems: No - RENAL Hx Chronic Kidney Disease: No - ENDOCRINE/METABOLIC Hx Hypothyroidism: Yes - HEMATOLOGICAL/ONCOLOGICAL Hx Anemia: Yes - INTEGUMENTARY Hx Dermatological Problems: No - MUSCULOSKELETAL/RHEUMATOLOGICAL Hx Falls: No - GASTROINTESTINAL Hx Gastrointestinal Disorders: No - GENITOURINARY/GYNECOLOGICAL Hx Genitourinary Disorders: No - PSYCHIATRIC Hx Anxiety: Yes Hx Substance Use: No - SURGICAL HISTORY Hx Coronary Artery Bypass Graft: Yes (2008 x4) Hx Coronary Stent: Yes (4) - ANESTHESIA Hx Anesthesia: Yes Hx Anesthesia Reactions: No Hx Malignant Hyperthermia: No Meds Allergies/Adverse Reactions: Allergies Allergy/AdvReac Type Severity Reaction Status Date / Time No Known Drug Allergies Allergy n/a Verified 03/29/18 20:29 Results - Vital Signs Recent Vital Signs: Last Vital Signs Temp 98.3 F 05/27/18 15:00 Pulse 85 05/27/18 16:00 Resp 20 05/27/18 15:00 BP 102/68 05/27/18 21:36 Pulse Ox 98 05/27/18 16:00 - Labs Result Diagrams: 05/26/18 15:54 05/26/18 15:54 Labs: Laboratory Results - last 24 hr 05/26/18 05/27/18 23:24 11:49 Total Creatine Kinase 83 58 CK-MB (Mass) 0.59 0.48 Troponin I < 0.0120 < 0.0120
[2018-05-28] MEDS: Albuterol-Ipratrop 3 mg / 0.5 (3 ml) UD INH SCH ×3 (01:28→14:33)
[2018-05-28] MEDS: Promethazine 12.5 mg/10 ml Syrup PO SCH ×3 (01:59→13:55)
[2018-05-28] MEDS: oxyCODONE 30 mg Immediate Release Tab PO PRN ×4 (03:51→16:12)
[2018-05-28] MEDS: Levothyroxine 100 MCG TAB PO SCH (05:38)
[2018-05-28] MEDS: (Novolin R) Insulin Human Regular 100 units/ml vial SC SCH ×2 (07:34→12:03)
[2018-05-28 08:31] VITALS: PULSE 71; TEMP 98.4; O2SAT 100
[2018-05-28] MEDS ORDERED: Caffeine Citrated **INJ** 20 MG/ML IV ONE (09:14)
[2018-05-28] MEDS ORDERED: (Lantus) Insulin Glargine, Recombinant SC SCH (10:00)
[2018-05-28 12:04] VITALS: BP 128/68
--- NOTE | 2018-05-28 12:17 | CP.PCM.CON ---
History of Present Illness - History of Present Illness History of Present Illness: Patient is a 53 years old male with PMHX of HTN, DM, CHF, ID, [place], and status post CABG presented to the ED complaining of chest pain. He states that he had associated chest tightness and pressure sensation along with SOB. He states that the SOB has since resolved. HE denies fevers, chills, SOB, cough. He could not tolerate a stress test this morning, however is sitting comfortably in bed. Patient is only complaining of inability to sleep. PMHX: HTN, DM, CHF, ID, [place] PSHX: CABG Family HX: Noncontributory ALL: NKDA MEDS: as per chart SOCIAL: History of Tobacco use Physical Exam O2 Saturation 100% Room General: NAD Cardio: S1, S2 Resp: decreased breath sounds Abd: Soft, Non-tender Chest X-Ray 05/26- Vascular Congestion A/P 1) CHF Exacerbation -Continue Lasix 2) [place] -Reccomend BiPAP at night Past Patient History - Infectious Disease Hx of Infectious Diseases: None - Past Medical History & Family History Past Medical History?: Yes - Past Social History Smoking Status: Current Some Days Smoker - CARDIAC Hx Atrial Fibrillation: Yes Hx Cardia Arrhythmia: Yes (AFIB) Hx Congestive Heart Failure: Yes Hx Hypercholesterolemia: Yes Hx Hypertension: Yes Hx Pacemaker: Yes Hx Peripheral Edema: Yes - PULMONARY Hx Chronic Obstructive Pulmonary Disease (COPD): Yes Hx Emphysema: Yes Hx Pneumonia: Yes Hx Sleep Apnea: Yes - NEUROLOGICAL Hx Transient Ischemic Attacks (TIA): Yes - HEENT Hx HEENT Problems: No - RENAL Hx Chronic Kidney Disease: No - ENDOCRINE/METABOLIC Hx Hypothyroidism: Yes - HEMATOLOGICAL/ONCOLOGICAL Hx Anemia: Yes - INTEGUMENTARY Hx Dermatological Problems: No - MUSCULOSKELETAL/RHEUMATOLOGICAL Hx Falls: No - GASTROINTESTINAL Hx Gastrointestinal Disorders: No - GENITOURINARY/GYNECOLOGICAL Hx Genitourinary Disorders: No - PSYCHIATRIC Hx Anxiety: Yes Hx Substance Use: No - SURGICAL HISTORY Hx Coronary Artery Bypass Graft: Yes (2008 x) Hx Coronary Stent: Yes (4) - ANESTHESIA Hx Anesthesia: Yes Hx Anesthesia Reactions: No Hx Malignant Hyperthermia: No Meds Home Medications: Home Medication List Medication Instructions Recorded Confirmed Type Promethazine [Phenergan Syrup] 12.5 mg PO Q6H 7 Days dose 05/28/18 Rx Allergies/Adverse Reactions: Allergies Allergy/AdvReac Type Severity Reaction Status Date / Time No Known Drug Allergies Allergy n/a Verified 03/29/18 20:29 - Medications Medications: Current Medications Albuterol/Ipratropium (Duoneb 3 Mg/0.5 Mg (3 Ml) Ud) 3 ml INH RQ6 [facility] Last Admin: 05/28/18 08:11 Dose: Not Given Apixaban (Eliquis) 5 mg PO Q12 [facility] Last Admin: 05/28/18 09:45 Dose: 5 mg Carvedilol (Coreg) 25 mg PO BID [facility] Last Admin: 05/28/18 12:03 Dose: 25 mg Clopidogrel Bisulfate (Plavix) 75 mg PO DAILY [facility] Last Admin: 05/28/18 09:45 Dose: 75 mg Digoxin (Digoxin) 0.125 mg PO DAILY@1800 [facility] Last Admin: 05/27/18 17:11 Dose: 0.125 mg Furosemide (Lasix) 80 mg IVP Q12 [facility] Last Admin: 05/28/18 09:46 Dose: 80 mg Hydroxychloroquine Sulfate (Plaquenil) 200 mg PO BID [facility]; Protocol Last Admin: 05/28/18 09:45 Dose: 200 mg Insulin Glargine (Lantus) 14 unit SC DAILY [facility] Last Admin: 05/28/18 09:46 Dose: 14 u Insulin Human Regular (Novolin R) 0 unit SC [facility]; Protocol Last Admin: 05/28/18 12:03 Dose: 8 units Levothyroxine Sodium (Synthroid) 100 mcg PO DAILY@0630 [facility] Last Admin: 05/28/18 05:38 Dose: 100 mcg Lisinopril (Zestril) 5 mg PO DAILY [facility] Last Admin: 05/28/18 09:45 Dose: 5 mg Nitroglycerin (Nitrostat Sl Tab) 0.4 mg SL Q5MIN PRN PRN Reason: chest pain Oxycodone HCl (Oxycodone Immediate Release Tab) 30 mg PO Q4H PRN PRN Reason: Pain, Mild (1-3) Last Admin: 05/28/18 12:02 Dose: 30 mg Promethazine HCl (Phenergan Syrup) 12.5 mg PO Q6H [facility] Last Admin: 05/28/18 07:34 Dose: Not Given Rosuvastatin Calcium (Crestor) 40 mg PO HS [facility] Last Admin: 05/27/18 21:37 Dose: 40 mg Sitagliptin Phosphate (Januvia) 50 mg PO DAILY [facility] Last Admin: 05/28/18 09:45 Dose: 50 mg Results - Vital Signs Recent Vital Signs: Last Vital Signs Temp 98.4 F 05/28/18 08:29 Pulse 71 05/28/18 08:29 Resp 20 05/28/18 08:29 BP 128/68 05/28/18 12:03 Pulse Ox 100 05/28/18 08:29 - Labs Result Diagrams: 05/26/18 15:54 05/26/18 15:54 Labs: Laboratory Results - last 24 hr 05/26/18 05/27/18 05/27/18 21:36 01:53 11:43 POC Glucose (mg/dL) 495 H* 354 H 406 H* Total Creatine Kinase CK-MB (Mass) Troponin I 05/27/18 05/27/18 05/27/18 11:49 16:05 21:27 POC Glucose (mg/dL) 369 H 318 H Total Creatine Kinase 58 CK-MB (Mass) 0.48 Troponin I < 0.0120 05/28/18 06:44 POC Glucose (mg/dL) 287 H Total Creatine Kinase CK-MB (Mass) Troponin I
--- NOTE | 2018-05-28 12:28 | CP.PCM.PN ---
Subjective - Date & Time of Evaluation Date of Evaluation: 05/28/18 Time of Evaluation: 12:27 Objective - Vital Signs/Intake and Output Vital Signs (last 24 hours): Temp Pulse Resp BP Pulse Ox 98.4 F 71 20 128/68 100 05/28/18 08:29 05/28/18 08:29 05/28/18 08:29 05/28/18 12:03 05/28/18 08:29 - Medications Medications: Current Medications Albuterol/Ipratropium (Duoneb 3 Mg/0.5 Mg (3 Ml) Ud) 3 ml INH RQ6 [facility] Last Admin: 05/28/18 08:11 Dose: Not Given Apixaban (Eliquis) 5 mg PO Q12 [facility] Last Admin: 05/28/18 09:45 Dose: 5 mg Carvedilol (Coreg) 25 mg PO BID [facility] Last Admin: 05/28/18 12:03 Dose: 25 mg Clopidogrel Bisulfate (Plavix) 75 mg PO DAILY [facility] Last Admin: 05/28/18 09:45 Dose: 75 mg Digoxin (Digoxin) 0.125 mg PO DAILY@1800 [facility] Last Admin: 05/27/18 17:11 Dose: 0.125 mg Furosemide (Lasix) 80 mg IVP Q12 [facility] Last Admin: 05/28/18 09:46 Dose: 80 mg Hydroxychloroquine Sulfate (Plaquenil) 200 mg PO BID [facility]; Protocol Last Admin: 05/28/18 09:45 Dose: 200 mg Insulin Glargine (Lantus) 14 unit SC DAILY [facility] Last Admin: 05/28/18 09:46 Dose: 14 u Insulin Human Regular (Novolin R) 0 unit SC [facility]; Protocol Last Admin: 05/28/18 12:03 Dose: 8 units Levothyroxine Sodium (Synthroid) 100 mcg PO DAILY@0630 [facility] Last Admin: 05/28/18 05:38 Dose: 100 mcg Lisinopril (Zestril) 5 mg PO DAILY [facility] Last Admin: 05/28/18 09:45 Dose: 5 mg Nitroglycerin (Nitrostat Sl Tab) 0.4 mg SL Q5MIN PRN PRN Reason: chest pain Oxycodone HCl (Oxycodone Immediate Release Tab) 30 mg PO Q4H PRN PRN Reason: Pain, Mild (1-3) Last Admin: 05/28/18 12:02 Dose: 30 mg Promethazine HCl (Phenergan Syrup) 12.5 mg PO Q6H [facility] Last Admin: 05/28/18 07:34 Dose: Not Given Rosuvastatin Calcium (Crestor) 40 mg PO HS [facility] Last Admin: 05/27/18 21:37 Dose: 40 mg Sitagliptin Phosphate (Januvia) 50 mg PO DAILY [facility] Last Admin: 05/28/18 09:45 Dose: 50 mg - Labs Labs: 05/26/18 15:54 05/26/18 15:54 Assessment and Plan - Assessment and Plan (Free Text) Assessment: follow up with dr garsia in his office continue home medication new precripttion given byarnol lemon every week prometahzine activity as tolerated call dr garsia or go to the emergency room if symptom return or worsening
--- NOTE | 2018-05-29 05:27 | DS ---
DISCHARGE DIAGNOSES: 1. Noncoronary chest pain, rule out acute myocardial infarction. 2. Congestive heart failure. 3. Morbid obesity. 4. Type 2 diabetes. HISTORY OF PRESENT ILLNESS AND HOSPITAL COURSE: This is a 53-year-old black male with a history of multiple medical problems including diabetes, hypertension, AICD, congestive heart failure, hypothyroidism, lupus erythematosus, status post CABG, status post angioplasty after CABG, status post AICD placement who came in because of chest pain. [place] was ruled out by three sets of negative cardiac enzymes cardiac stress test. The patient was diuresed. Intake and output. Daily body weight. The patient did well and is here for discharge. CONDITION UPON DISCHARGE: Stable. PHYSICAL EXAMINATION: VITAL SIGNS: Blood pressure 132/70, pulse 71, respiratory rate 16, temperature 99. LUNGS: Clear. CARDIOVASCULAR SYSTEM: S1 and S2, regular. ABDOMEN: Soft, nontender. Bowel sounds are positive. PLAN: Discharge the patient. The patient will be followed up by me as outpatient. Ousmane Amor MD
--- NOTE | 2018-05-29 08:13 | CP.PCM.CON ---
History of Present Illness - History of Present Illness History of Present Illness: 52yo male with history of HTN, HCH, COPD, CHF, AFIB, CAD, CABG, coronary stent and pacemaker, comes to ER reporting mid-sternal chest pain, occuring 30 minutes prior to arrival. Patient states he took 1 tab of NTG SL, with relief of sy mptoms. Patient states he also took 1 tab of baby aspirin, which he takes daily. He otherwise denies any sweats, radiation of pain or syncopal episode. Patient denies shortness of breath, abdominal pain, and offers no additional complaints. PMD: Dr. Amor Job Analyst: Dr. Dyer ([facility]) Chief Complaint (Nursing): Chest Pain History Per: Patient History/Exam Limitations: no limitations Onset/Duration Of Symptoms: Mins (30) Current Symptoms Are (Timing): Better Quality: Pressure, "Pain" Associated Symptoms: denies: Nausea, Dyspnea, Diaphoresis, Syncope Nitro Therapy Administered: 1, Per Own Supply, Partial Relief Additional History Per: Patient - Medical History PMH: Anemia, Anxiety, Atrial Fibrillation, Back Problems, CAD, Cardia Arrhythmia (AFIB), CHF, COPD, Diabetes, Deep Vein Thrombosis, Emphysema, Graves' Disease, HTN, Hypercholesterolemia, Hypothyroidism, Peripheral Edema, Pneumonia, Sleep Apnea, TIA Denies: Chronic Kidney Disease Surgical History: CABG (2009 x4), Coronary Stent (4), Pacemaker - [facility] Procedures ASSISTANCE WITH RESPIRATORY VENTILATION, 24-96 HRS, CPAP (10/15/15) INJECT/INFUSE NEC (10/09/12) Family History: States: No Known Family Hx - Social History Hx Tobacco Use: Yes Hx Alcohol Use: No Hx Substance Use: No - Immunization History Hx Tetanus Toxoid Vaccination: Yes Hx Influenza Vaccination: Yes Hx Pneumococcal Vaccination: Yes Review Of Systems Except As Marked, All Systems Reviewed And Found Negative. Constitutional: Negative for: Fever, Chills, Sweats Cardiovascular: Positive for: Chest Pain Respiratory: Negative for: Shortness of Breath Gastrointestinal: Negative for: Vomiting, Abdominal Pain Physical Exam - Physical Exam Appears: Non-toxic Skin: Normal Color, Warm, Dry Head: Normacephalic Eye(s): bilateral: Normal Inspection Oral Mucosa: Moist Neck: Normal ROM, Supple Chest: Symmetrical Cardiovascular: Rhythm Regular Respiratory: Normal Breath Sounds Gastrointestinal/Abdominal: Normal Exam, Soft Back: Normal Inspection Extremity: Normal ROM, Pedal Edema Neurological/Psych: Oriented x3 Assessment & Plan - Assessment and Plan (Free Text) Assessment: 52 M admitted for atypical chest pain Hx of CHF, HTN, CAD s/p CABG, PPM Trops normal proBNP normal Stress test in am Continue all meds Past Patient History - Infectious Disease Hx of Infectious Diseases: None - Past Medical History & Family History Past Medical History?: Yes - Past Social History Smoking Status: Current Some Days Smoker - CARDIAC Hx Atrial Fibrillation: Yes Hx Cardia Arrhythmia: Yes (AFIB) Hx Congestive Heart Failure: Yes Hx Hypercholesterolemia: Yes Hx Hypertension: Yes Hx Pacemaker: Yes Hx Peripheral Edema: Yes - PULMONARY Hx Chronic Obstructive Pulmonary Disease (COPD): Yes Hx Emphysema: Yes Hx Pneumonia: Yes Hx Sleep Apnea: Yes - NEUROLOGICAL Hx Transient Ischemic Attacks (TIA): Yes - HEENT Hx HEENT Problems: No - RENAL Hx Chronic Kidney Disease: No - ENDOCRINE/METABOLIC Hx Hypothyroidism: Yes - HEMATOLOGICAL/ONCOLOGICAL Hx Anemia: Yes - INTEGUMENTARY Hx Dermatological Problems: No - MUSCULOSKELETAL/RHEUMATOLOGICAL Hx Falls: No - GASTROINTESTINAL Hx Gastrointestinal Disorders: No - GENITOURINARY/GYNECOLOGICAL Hx Genitourinary Disorders: No - PSYCHIATRIC Hx Anxiety: Yes Hx Substance Use: No - SURGICAL HISTORY Hx Coronary Artery Bypass Graft: Yes (2008 x4) Hx Coronary Stent: Yes (4) - ANESTHESIA Hx Anesthesia: Yes Hx Anesthesia Reactions: No Hx Malignant Hyperthermia: No Meds Home Medications: Home Medication List Medication Instructions Recorded Confirmed Type Exenatide Microspheres [Bydureon 2 mg SQ QWK 30 Days pen.[email or web address] 05/28/18 Rx Pen] Promethazine [Phenergan Syrup] 12.5 mg PO Q6H 7 Days dose 05/28/18 Rx Allergies/Adverse Reactions: Allergies Allergy/AdvReac Type Severity Reaction Status Date / Time No Known Drug Allergies Allergy n/a Verified 03/29/18 20:29 Results - Vital Signs Recent Vital Signs: Last Vital Signs Temp 98.4 F 05/28/18 08:29 Pulse 71 05/28/18 08:29 Resp 20 05/28/18 08:29 BP 128/68 05/28/18 12:03 Pulse Ox 100 05/28/18 08:29 - Labs Result Diagrams: 05/26/18 15:54 05/26/18 15:54 Labs: Laboratory Results - last 24 hr 05/28/18 11:15 POC Glucose (mg/dL) 384 H
--- NOTE | 2018-05-29 15:47 | IP.NPCORE ---
Heart Failure Core Measure - Heart Failure Ejection Fraction: 40 % or Greater JEANNE Inhibitor Prescribed: Yes Beta-Rian Prescribed: Carvedilol Angiotensin II Receptor Rian Prescribed: No Contraindication/Reason for not providing: ON JEANNE AnticoagulationTherapy for Atrial Fibrillation/Atrialflutter: Yes Aldosterone Antagonist Prescribed: No Contraindication/Reason for not providing: ON LASIX Hydralazine Nitrate Prescribed: No Contraindication/Reason for not providing: EF IS GREATER THAN 40 Implantable Cardioverter Defibrillator Therapy: Yes Cardiac Resynchronization Therapy Prescribed: No Contraindication/Reason for not providing: ICD - Follow up Will be discharged to: Home Follow Up Date (must be within 7 days from discharge): 06/01/18 Follow Up Time: 11:00
--- NOTE | 2018-05-30 21:40 | CARD ---
APPROVED REPORT Date of service: 05/26/2018 EKG Measurement Heart [id number] <Conclusion> Atrial-sensed ventricular-paced rhythm Abnormal ECG
== END 2018-05-28 16:23 | disposition home or self-care (01) ==
LOC: C.ER 14:01 → C.9E 17:46 → C.6T 18:23
PROVIDERS: ADMIT Internal Medicine; ATTEND Internal Medicine
DX: I11.0 Hypertensive heart disease with heart failure (principal); I25.10 Atherosclerotic heart disease of native coronary artery without angina pectoris; I48.91 Unspecified atrial fibrillation; I50.9 Heart failure, unspecified; J43.9 Emphysema, unspecified; E66.01 Morbid (severe) obesity due to excess calories; E78.00 Pure hypercholesterolemia, unspecified; G47.00 Insomnia, unspecified; G47.33 Obstructive sleep apnea (adult) (pediatric); L93.0 Discoid lupus erythematosus; Z95.810 Presence of automatic (implantable) cardiac defibrillator; Z79.82 Long term (current) use of aspirin; Z86.73 Personal history of transient ischemic attack (TIA), and cerebral infarction without residual deficits; Z87.01 Personal history of pneumonia (recurrent); Z87.891 Personal history of nicotine dependence; Z95.1 Presence of aortocoronary bypass graft; Z95.5 Presence of coronary angioplasty implant and graft; D64.9 Anemia, unspecified; F41.9 Anxiety disorder, unspecified; E03.9 Hypothyroidism, unspecified; E11.9 Type 2 diabetes mellitus without complications
CPT/HCPCS: 36415; 71045; 80053; 81001; 82948; 83880; 84484; 85025; 93005; 94640; 96374; 96376; 99285; G0378; J0706; J1940; J2785

== ENCOUNTER 2018-07-14 00:53 | Inpatient (IN) | payer MEDICARE, OTHER | END 2018-07-24 10:40 | disposition home or self-care (01) | LOC: C.ER 00:53 → C.5S 03:01 ==